=== PATIENT | male | born 1950 | race Caucasian/White ===

== ENCOUNTER 2019-02-15 06:25 | Inpatient (IN) ==
--- NOTE | 2019-01-25 15:37 | PAT Medication Instructions ---
Medication Instructions Date of Service January 25, 2019 Home Medications aspirin [Aspirin Low Dose] 81 mg PO QAM 01/18/19 [History Confirmed 01/18/19] lisinopril 30 mg PO DAILY 01/18/19 [History Confirmed 01/18/19] metoprolol succinate 100 mg PO BID 01/18/19 [History Confirmed 01/18/19] omega 8-sli-hst-fish oil 1 cap PO QAM 01/18/19 [History Confirmed 01/18/19] oxybutynin chloride [Ditropan XL] 5 mg PO QAM 01/18/19 [History Confirmed 01/18/19] pantoprazole 20 mg PO QAM 01/18/19 [History Confirmed 01/18/19] simvastatin 20 mg PO HS 01/18/19 [History Confirmed 01/18/19] terazosin 5 mg PO HS 01/18/19 [History Confirmed 01/18/19] ASK your prescriber and surgeon aspirin [Aspirin Low Dose] 81 mg PO QAM 01/18/19 [History Confirmed 01/18/19] STOP taking 2 weeks before surgery (or as soon as possible if surgery is within 2 weeks) omega 6-zis-eka-fish oil 1 cap PO QAM 01/18/19 [History Confirmed 01/18/19] DO NOT take the morning of surgery lisinopril 30 mg PO DAILY 01/18/19 [History Confirmed 01/18/19] oxybutynin chloride [Ditropan XL] 5 mg PO QAM 01/18/19 [History Confirmed 01/18/19] Take morning of surgery With a small sip of water, OTHERWISE NOTHING TO EAT OR DRINK AFTER MIDNIGHT: metoprolol succinate 100 mg PO BID 01/18/19 [History Confirmed 01/18/19] pantoprazole 20 mg PO QAM 01/18/19 [History Confirmed 01/18/19] Take evening before surgery metoprolol succinate 100 mg PO BID 01/18/19 [History Confirmed 01/18/19] simvastatin 20 mg PO HS 01/18/19 [History Confirmed 01/18/19] terazosin 5 mg PO HS 01/18/19 [History Confirmed 01/18/19] Other Notes If you have any questions please call us at [phone] or [phone] or [phone] or [phone]
--- NOTE | 2019-01-26 13:17 | Anesthesiology Consultation ---
Date of Service January 26, 2019 Assessment & Plan (1) Encounter for pre-operative examination: - Cardiology: 01/10/19: "low to intermediate risk for OR." - PCP: 01/16/19: "I see no historical or physical contraindications to proceeding with surgical intervention." Preop testing to be faxed to PCP. - Check [facility] AM DOS Chart Review Chart Review: Pending: Refer to Additional Notes / Consult section (pending preop testing (labs, EKG, CXR)) and Patient seen in Pre Admission Testing Teaching & Discussion Pre-Anesthesia Teaching/Discussion Notes: Instructed NPO after midnight before surgery,except medications with 15 cc of water. Medication instructions provided according to the PAT guidelines. History Surgery Operation Date: 02/15/19 08:15 Proposed Procedures p Robotic Laparoscopic Assisted Radical Retropubic Prostatectomy, Possible Open, Possible Pelvic Lymph Node Dissection - Bertin Peoples MD Height/Weight Height: 5 ft 7 in Weight: 89.1 kg Allergies Allergy/AdvReac Type Severity Reaction Status Date / Time morphine Allergy Unknown hives Verified 01/26/19 13:15 Penicillins Allergy Unknown skin Verified 01/26/19 11:30 streaking tetanus toxoid, adsorbed Allergy Unknown local skin Verified 01/26/19 13:15 irritation meperidine AdvReac Unknown hallucinations, Verified 01/26/19 13:15 agitation Medications Home Medications Medication Instructions Recorded Confirmed Last Taken aspirin [Aspirin Low Dose] 81 mg PO QAM 01/18/19 01/26/19 Unknown lisinopril 30 mg PO DAILY 01/18/19 01/26/19 Unknown metoprolol succinate 100 mg PO BID 01/18/19 01/26/19 Unknown omega 7-knu-gfm-fish oil 1 cap PO QAM 01/18/19 01/26/19 Unknown oxybutynin chloride [Ditropan XL] 5 mg PO QAM 01/18/19 01/26/19 Unknown pantoprazole 20 mg PO QAM 01/18/19 01/26/19 Unknown simvastatin 20 mg PO HS 01/18/19 01/26/19 Unknown terazosin 5 mg PO HS 01/18/19 01/26/19 Unknown Past Medical History Medical History BPH (benign prostatic hyperplasia) CAD (coronary artery disease) stents x 2 (2000) Diabetes mellitus, type 2 diet controlled GERD (gastroesophageal reflux disease) controlled History of abdominal aortic aneurysm (AAA) s/p repair + stent (2008) History of kidney cancer left kidney (2014) s/p tumor removal (s/p partial left nephrectomy) History of skin cancer face Hx of myocardial infarction 2000 - stents x 2 Hyperlipidemia Hypertension Exercise / Class Metabolic Activity II 4-5 Yardwork/Stairs/Walk up hill (one flight of stairs (no chest pain/no SOB)) Past Family History Family History Brother Family history of diabetes mellitus Past Surgical History Surgical History History of AAA (abdominal aortic aneurysm) repair + stent (2008) History of appendectomy History of kidney surgery Left partial robotic nephrectomy, hand assisted laparoscopy: 09/24/14: Grade I view, MAC#4, ETT 8 at [facility] Hx of abdominal surgery d/t peritonitis Hx of colonoscopy Hx of hernia repair Status post insertion of iliac artery stent (from trauma from endovascular procedure per records) Past Anesthesia History No Hx of Anesthesia Complications and No Family Hx of Anesthesia Complications History of PONV No Hx of PONV and No Hx of Motion Sickness Social History Smoking Status: Former smoker Do You Dip or Chew Tobacco: No Smoking End Date: Quit 2007 Hx Alcohol Use: No Hx Substance Use: No Review of Systems Hx of bronchitis (symptoms almost completely resolved as of PAT visit). Reflux controlled. Patient denies chest pain, shortness of breath, dyspnea on exertion, wheezing, palpitations. Physical Exam Vital Signs VITALS BP 143/79 P 53 TEMP 98.2 SP02 95%RA RESP 18 PHYSICAL Full neck and c-spine range of motion. Full TMJ range of motion. TMD 3 finger breaths Mallampati Score 3 Dentition: intact Lungs: clear throughout to auscultation Cardiac: regular rate and rhythm, no murmurs noted Spine: normal Carotid arteries: negative bruit Extremities: no edema Testing Laboratory Results 01/16/19 HGBA1C 5.7%
--- NOTE | 2019-01-26 14:41 | XRay Report ---
XR chest Pre-admission PA/Lat CLINICAL HISTORY: Preoperative evaluation. COMPARISON STUDY: Chest CT September 18, 2014. Chest radiograph September 13, 2014. FINDINGS: Lung volumes are normal. Lungs are clear. There is no pneumothorax or pleural effusion. Car diac size is normal. Mediastinal contours are normal. There is no evidence for pulmonary edema. Later al view partially visualizes an aortoiliac stent graft. IMPRESSION: No acute cardiopulmonary findings. Electronically signed by: Peterson Hart M.D. 01/26/2019 2:39 PM
[2019-01-26 16:02] LABS: Basophils # (auto) 0.03 K/uL (0-0.2); Basophils % (auto) 0.4 %; Eosinophils # (auto) 0.56 K/uL (0-0.5); Hematocrit (blood only) 41.9 % (42-52); Hemoglobin 14.2 g/dL (14.0-18.0); Immature Granulocytes # (auto) 0.01 K/uL (0.00-0.02); Immature Granulocytes % (auto) 0.1 %; Lymphocytes # (auto) 3.48 K/uL (1.2-3.4); Lymphocytes % (auto) 43.6 %; Mean Corpuscular Hgb Conc 33.9 g/dL (32-36); Mean Corpuscular Volume 88.4 fL (80-100); Mean Platelet Volume 10.9 fL (7.4-10.4); Monocytes # (auto) 0.68 K/uL (0.11-0.59); Monocytes % (auto) 8.5 %; Neutrophils # (auto) 3.22 K/uL (1.4-6.5); Neutrophils % (auto) 40.4 %; Platelet Count 126 K/uL (130-400); RDW Coefficient of Variation 12.4 % (11.5-14.5); Red Blood Count 4.74 M/uL (4.7-6.1); White Blood Count 7.98 K/uL (4.8-10.8)
[2019-01-26 16:16] LABS: BUN Creatinine Ratio 17.3 (10-20); Calcium 8.8 mg/dl (8.5-10.1); Creatinine Clr Calc Pharmacy 54.6 ml/min; Est GFR (African American) 61.1; Est GFR (Non-African American) 52.7
[~2019-02-15 06:25] MED LIST: CEFAZOLIN 2000MG 2,000 MG/15 ML SYR IV SCH; HEPARIN SOD 5,000 UNIT/0.5 ML VIAL SQ SCH; LR 15ML/HR IV SCH
[2019-02-15] MEDS ORDERED: MIDAZOLAM HCL 1 MG/ML 2ML VIAL ONE (07:44)
[2019-02-15] MEDS ORDERED: LIDOCAINE HCL 2% 2 ML VIAL/AMP(20MG/ML) INFIL ONE (07:44)
[2019-02-15] MEDS ORDERED: ROCURONIUM BROMIDE 10 MG/ML 5 ML VIAL ONE ×4 (07:44→11:50)
[2019-02-15] MEDS ORDERED: PROPOFOL IV EMULSION 10 MG/ML 20 ML VIAL IV ONE (07:44)
[2019-02-15] MEDS ORDERED: fentaNYL citrate 100 MCG/2 ML VIAL ONE ×3 (07:45→12:52)
--- NOTE | 2019-02-15 07:52 | History & Physical Bridge Note ---
Date of Service February 15, 2019 History & Physical Bridge Note I have examined the patient, reviewed the History & Physical and in the interval since the performance of the History & Physical I have noted the following changes of clinical significance: no changes noted
[2019-02-15] MEDS ORDERED: SODIUM CHLORIDE 0.9% INJ 10 ML VIAL ONE (07:54)
[2019-02-15] MEDS ORDERED: BUPIVACAINE 0.5 % 5 MG/1 ML MPF 30ML VIAL ONE (08:13)
[2019-02-15] MEDS: CEFAZOLIN: ALLERGY NOTED TO ORDERED MEDICATION SCH ×4 (08:27→14:09)
[2019-02-15] MEDS ORDERED: DEXAMETHASONE SOD INJ 4 MG/ML VIAL ONE (08:55)
[2019-02-15] MEDS ORDERED: GLYCOPYRROLATE 0.2 MG/ML VIAL ONE ×4 (08:55→11:53)
[2019-02-15] MEDS ORDERED: ATROPINE SO4 1 MG/ML 1ML VIAL ONE (09:01)
[2019-02-15] MEDS ORDERED: BELLADONNA/OPIUM SUPP 60 MG SUPP PR ONE ×2 (09:02→11:25)
[2019-02-15] MEDS ORDERED: CEFAZOLIN 250 MG/ML 1 GM VIAL ONE (09:24)
[2019-02-15] MEDS ORDERED: SURGICEL ABSORB HEMOSTAT 2IN X 14IN TOP ONE (10:21)
[2019-02-15] MEDS ORDERED: ePHEDrine sulfate 50 MG/ML SYR ONE (10:59)
[2019-02-15] MEDS ORDERED: ePHEDrine sulfate 50 MG/ML AMP ONE (10:59)
[2019-02-15] MEDS ORDERED: FLOSEAL HEMOSTATIC MATRIX 10ML TOP ONE (11:08)
[2019-02-15] MEDS ORDERED: ONDANSETRON INJ 2 MG/ML 2 ML VIAL ONE (11:26)
[2019-02-15] MEDS ORDERED: NEOSTIGMINE METHYLSULFATE 5 MG/5 ML SYR ONE (11:44)
[2019-02-15] MEDS ORDERED: HYDROmorphone INJ 1 MG/ML SYRINGE IV PRN ×2 (12:39→14:06)
[2019-02-15] MEDS ORDERED: ePHEDrine sulfate 50 MG/ML AMP IV PRN (12:39)
[2019-02-15] MEDS ORDERED: ATROPINE SULFATE 0.1 MG/ML 10ML SYR IV PRN (12:39)
[2019-02-15] MEDS ORDERED: ONDANSETRON INJ 2 MG/ML 2 ML VIAL IV PRN (12:39)
[2019-02-15] MEDS ORDERED: fentaNYL citrate 100 MCG/2 ML VIAL IV PRN (12:39)
[2019-02-15] MEDS ORDERED: HYDROmorphone INJ 1 MG/ML SYRINGE ONE (12:53)
[2019-02-15 13:12] LABS: Hematocrit (blood only) 38.5 % (42-52); Hemoglobin 13.2 g/dL (14.0-18.0); Mean Corpuscular Hemoglobin 30.1 pg (25-34); Mean Corpuscular Volume 87.7 fL (80-100); RDW Coefficient of Variation 12.6 % (11.5-14.5); RDW Standard Deviation 40.6 fL (36.4-46.3); Red Blood Count 4.39 M/uL (4.7-6.1); White Blood Count 9.56 K/uL (4.8-10.8)
[2019-02-15 13:29] LABS: Calcium 8.8 mg/dl (8.5-10.1); Creatinine Clr Calc Pharmacy 45.4 ml/min; Est GFR (African American) 48.7; Potassium 3.9 mmol/L (3.5-5.1)
[2019-02-15 13:37] LABS: Mean Corpuscular Hgb Conc 34.3 g/dL (32-36); Mean Platelet Volume 11.2 fL (7.4-10.4); Platelet Count 82 K/uL (130-400)
[2019-02-15 13:43] LABS: Basophils # (auto) 0.01 K/uL (0-0.2); Basophils % (auto) 0.1 %; Eosinophils # (auto) 0.05 K/uL (0-0.5); Eosinophils % (auto) 0.5 %; Immature Granulocytes # (auto) 0.03 K/uL (0.00-0.02); Immature Granulocytes % (auto) 0.3 %; Lymphocytes % (auto) 12.6 %; Monocytes # (auto) 0.16 K/uL (0.11-0.59); Monocytes % (auto) 1.7 %; Neutrophils # (auto) 8.11 K/uL (1.4-6.5); Neutrophils % (auto) 84.8 %; Platelet Estimate Decreased (Normal); Toxic Vacuolation 1+
[2019-02-15] MEDS ORDERED: OXYCODONE HCL IR 5 MG TAB (IMMEDIATE RELEASE) PO PRN (14:06)
[2019-02-15] MEDS ORDERED: HYDROmorphone INJ 0.5 MG/0.5 ML SYR IV PRN (14:06)
[2019-02-15] MEDS ORDERED: KETOROLAC TROMETHAMINE 15 MG/ML VIAL IV PRN (14:06)
[2019-02-15] MEDS: LACTATED RINGER'S 1,000 ML IV SCH (14:38)
--- NOTE | 2019-02-15 14:53 | Anesthesiology Progress Note ---
Date of Service February 15, 2019 Anesthesia Post Procedure Vital Signs Vital Signs: Temp Pulse Pulse Resp BP Pulse Ox 02/15/19 14:30 36.7 C 67 18 129/67 91 02/15/19 13:55 36.6 C 65 16 129/76 93 02/15/19 13:45 65 13 118/70 93 02/15/19 13:35 36.4 C L 65 13 104/69 93 02/15/19 13:25 63 14 124/72 92 02/15/19 13:15 64 15 135/69 94 02/15/19 13:05 36.8 C 67 19 112/67 95 02/15/19 12:55 36.8 C 61 20 128/77 92 02/15/19 12:45 36.8 C 66 18 114/74 91 02/15/19 12:35 36.8 C 75 22 148/62 H 89 L 02/15/19 12:28 36.8 C 74 14 153/70 H 98 02/15/19 06:56 36.4 C L 46 L 18 167/83 H 97 Pain Intensity Abdomen: Pain Intensity: 4 Transfer of Care Handoff Completed per policy Notes Mental Status: alert / awake / arousable and participated in evaluation Patient Amnestic to Procedure: Yes Nausea / Vomiting: adequately controlled Pain: adequately controlled Airway Patency, RR, SpO2: stable & adequate BP & HR: stable & adequate Hydration State: stable & adequate Anesthetic Complications: no major complications apparent and Pt Satisfied with anesthetic care
[2019-02-15] MEDS: ACETAMINOPHEN 1,000 MG/100 ML VIAL IV SCH ×2 (15:35→23:26)
[2019-02-15] MEDS: CEFAZOLIN 2000MG 2,000 MG/15 ML SYR IV SCH ×2 (15:37→23:35)
--- NOTE | 2019-02-15 18:03 | Operative Report ---
PG Post Operative Report Pre & Post Diagnosis Operation Date: 02/15/19 08:15 Pre-Op Diagnosis: Prostate Cancer Post-Op Diagnosis: Prostate Cancer I identified the patient and participated in the time-out.: Yes Procedure Operation Date: 02/15/19 08:15 Actual Procedures p Robotic Laparoscopic Assisted Radical Retropubic Prostatectomy, Lysis of Adhesions, Closure of Port Site and Umbilical Hernia - Bertin Peoples MD Surgeon Camilo Peoples MD Compliance Project Manager Deidre Ribeiro Estimated Blood Loss 150 Findings Consistent with Post-Op Diagnosis Specimens 1. periprostatic fat 2. bladder neck margin 3. prostate and seminal vesicles Description of Procedure The patient was identified in the preoperative holding area, appropriate informed consents were reviewed and completed, and he was transported to the operating suite. Subcutaneous heparin was administered in the pre-operative holding area. Upon arrival in the operating suite, he received appropriate antibiotics and general anesthesia. He was positioned in dorsal lithotomy, a B&O suppository was inserted after digital rectal exam, and he was prepped and draped in standard fashion. A Acosta catheter was inserted in the sterile field. A Veress needle was passedinto the right upper quadrant with uniform insufflation of the abdomen to 15mmHg. This location was selected secondary to a prior left partial nephrectomy and open appendectomy and fear of adhesions in these locations. A 5mm upper quadrant port was then inserted with a 5 mm 0 degree lens. Inspection revealed no adhesions immediately around the point of entry. Further inspection revealed no evidence of Varess trauma. As expected, he had significant adhesive disease in the right lower quadrant. He had visible sutures from his prior appendectomy and fascial closure, there was small bowel adherent to the sutures. Additionally, there was a small port site hernia on the left lateral aspect of the abdominal wall consistent with preoperative findings on imaging. A small umbilical hernia was also noted. These appear to contain fat only and no bowel. The anterior abdominal wall was free enough to allow a supraumbilical port to be placed. A standard 12 mm Visiport was positioned under direct vision. There were no incidents with positioning. Utilizing this port my previously placed 5 mm port, I was able to perform lysis of adhesions freeing the fat from the port site hernia on the left abdominal wall. This allowed further placement of my standard robotic ports in their standard positions. On the right side, I was also clear to position my ports in a standard configuration. And these were subsequently placed. I used a combination of these ports to allow sharp mobilization of the small bowel off of the anterior abdominal wall sutures in the right lower quadrant. Care was taken to avoid injury to the bowel and I believe we succeeded in complicating this. Patient was ultimately placed in steep Trendelenburg position and the robot docked. To begin the robotic portion of the case, further lysis of adhesions was required to free the sigmoid colon from the left lateral pelvic wall. Additionally, the pouch of Rodney was somewhat closed off secondary to adhesions and I was able to free the anterior surface of the rectum from the posterior aspect of the bladder and prostate creating the pouch of Rodney. In total 45 minutes of lysis of adhesions was performed. The medial umbilical ligaments were then controlled with bipolar electrocautery just inferior to the umbilicus. Following cauterization, they were divided utilizing monopolar cautery. A peritoneal incision was carried from this location to the medial aspect of the internal inguinal rings bilaterally with care to avoid opening through the ring. This incision was concluded when the vas deferens was reached. Dissection of the bladder and prostate off of the posterior aspect of the pubic arch was completed allowing full visualization of the prostate. The fat overlying the prostate was removed en bloc and passed off the table as a specimen labeled "periprostatic fat". The endopelvic fascia was cleared during this portion of the procedure, and subsequently opened - first on the right and then the left. The incision through the endopelvic fascia began near the prostate-bladder junction and was carried to the apex with extreme care to preserve all lateral levator musculature as well as the periurethral musculature and sphincter complex. The puboprostatic ligaments were thinned slightly bilaterally before placing a 0-Vicryl figure of 8 stitch around the DVC. Of note, he has bilateral direct inguinal hernias, and containing fat only, both of these were reduced. I then identified the bladder neck aided by gentle traction on the Acosta catheter and lateral to medial pressure at the presumed level of the bladder neck with the robotic instruments. An anterior cystotomy was made, the Acosta balloon deflated and the catheter guided through the incision to allow anterior retraction. I attempted to preserve maximal bladder neck musculature as I circumferentially dissected around the bladder neck. I did excise a small portion of the bladder neck for margin as I feared it may have been slightly too close to the prostate. As I corrected posteriorly, I noted that the posterior wall of the bladder was adherent very distally, I attempted to use care to carefully dissect this off the base of the prostate, but I did create a small buttonhole approximately 1 cm from the bladder neck. I inspected this through the bladder cystotomy as well as from the posterior aspect. It did not involve the ureteral orifices and I was able to close it primarily utilizing a 3-0 Vicryl suture. Closure occurred in 2 layers. Following inspection, the UOs were still patent and producing urine. I was then able to return to normal continuation the dissection and correct to an appropriate plan and ultimately dissect down until identified the bilateral vasa. I elevated the right vas first. I dissected circumferentially around it for a length of approximately 4 cm before transecting it with Bovie electrocautery. I utilized this vas to help elevate the lateral and posterior seminal vesicle which was circumferentially dissected. I then performed the same procedure on the left. Holding both seminal vesicles anteriorly, I was able to dissect posterior to the prostate and create a posterior plane. I dissected distally as far as possible and laterally to the limits of the neurovascular bundles. An incision in the lateral prostatic fascia was then made bilaterally to facilitate control of the vascular pedicles. The pedicles were then controlled with the vessel sealer device. A modest nerve sparing was performed. The apical attachments of the prostate were remaining at that stage. The DVC was divided with bipolar electrocautery. Clarita-prostatic tissue incised with sharp dissection and monopolar cautery. Maximal urethral length was preserved before dividing the urethra sharply. The prostate was entirely freed at that point, and collected in an EndoCatch bag before being moved out of the field of vision. Hemostasis was confirmed and anastomosis of the bladder and urethra was completed utilizing a double armed V- Lock stitch. I additionally used a V-lock stitch to reapproximate the transversalis fascia across the previously noted direct inguinal hernias. A new Acosta catheter was inserted and the anastomosis tested with irrigation. There was no evidence of leak. FloSeal coagulant was placed around the anastomosis. A ADDY drain was placed through the right lateral robotic port. The robot was undocked, and the string attached to the specimen bag was withdrawn through the left lateral robotic port. I then proceeded to open the anterior abdominal wall between the 2 left robotic ports, connecting the 2 incisions. This encompassed the previously noted port site hernia. I was able to free up fascia superiorly and inferiorly and close this primarily utilizing a 0 PDS in running fashion. This was a tension-free closure which appeared to entirely resolve the previously noted hernia. I subsequently closed subcutaneous tissues with a 2-0 Vicryl followed by injection of Marcaine and closure of the skin with 4-0 Monocryl. I then proceeded to open the supraumbilical incision through the umbilicus itself. There was previously a umbilical hernia, but I was also able to close this primarily, this time using a 0 Vicryl on a UR 6 needle. The fascia of the right lateral sales assistants and salespersons port was closed with a 0 Vicryl as well. All incisions were infiltrated with half percent Marcaine before closure of the skin with 4-0 Monocryl and Dermabond. The drain was sutured in place utilizing a 3-0 silk stitch. Deidre Ribeiro assisted throughout the case from opening to closure. I attest to the content of the Intraoperative Record and any orders documented therein. Any exceptions are noted below.
[2019-02-15] MEDS: SIMVASTATIN 20 MG TAB PO SCH (20:19)
[2019-02-15] MEDS: METOPROLOL SUCC 50MG EXT REL TAB PO SCH (20:19)
[2019-02-15] MEDS ORDERED: HEPARIN SOD 5,000 UNIT/0.5 ML VIAL SQ SCH (21:00)
[2019-02-16] MEDS: LACTATED RINGER'S 1,000 ML IV SCH ×2 (04:00→17:53)
[2019-02-16] MEDS: ACETAMINOPHEN 1,000 MG/100 ML VIAL IV SCH ×3 (07:16→22:12)
--- NOTE | 2019-02-16 07:47 | Urology Progress Note ---
Date of Service February 16, 2019 Assessment & Plan (1) Malignant neoplasm of prostate: POD#1 s/p RALP and incisional hernia/umbilical hernia closure doing very well ambulate diet ADDY out before d/c home if doing well, possible d/c home later today vs tomorrow Subjective doing very well ambulated this AM pain controlled no nausea Review of Systems Review of Systems: All systems reviewed & are unremarkable except as noted in HPI & below Physical Exam Physical Exam: incisions appropriate ADDY serosang urine clear Results & Data Vital Signs (Past 12 Hours) Vital Signs Temp Pulse Resp BP Pulse Ox 02/16/19 04:37 36.6 C 74 18 152/75 H 96 02/15/19 23:05 36.6 C 80 17 137/66 92 PG Care Time/CCT Total # of Minutes Spent Total Time Spent with Patient: Total time spent is greater than 50% in coordination of care (as documented) at patient's floor/unit and/or counseling patient:
[2019-02-16 08:19] LABS: Hematocrit (blood only) 37.3 % (42-52); Hemoglobin 12.3 g/dL (14.0-18.0); Mean Corpuscular Hemoglobin 29.7 pg (25-34); Mean Corpuscular Volume 90.1 fL (80-100); RDW Coefficient of Variation 12.9 % (11.5-14.5); RDW Standard Deviation 42.3 fL (36.4-46.3); Red Blood Count 4.14 M/uL (4.7-6.1); White Blood Count 10.73 K/uL (4.8-10.8)
[2019-02-16 08:25] LABS: Basophils # (auto) 0.01 K/uL (0-0.2); Basophils % (auto) 0.1 %; Eosinophils # (auto) 0.07 K/uL (0-0.5); Eosinophils % (auto) 0.7 %; Immature Granulocytes # (auto) 0.03 K/uL (0.00-0.02); Immature Granulocytes % (auto) 0.3 %; Lymphocytes # (auto) 1.86 K/uL (1.2-3.4); Lymphocytes % (auto) 17.3 %; Mean Platelet Volume 10.5 fL (7.4-10.4); Monocytes # (auto) 1.04 K/uL (0.11-0.59); Monocytes % (auto) 9.7 %; Neutrophils # (auto) 7.72 K/uL (1.4-6.5); Neutrophils % (auto) 71.9 %; Platelet Count 89 K/uL (130-400)
--- NOTE | 2019-02-16 08:30 | Anesthesiology Progress Note ---
Date of Service February 16, 2019 Anesthesia Post Procedure Vital Signs Vital Signs: Temp Pulse Pulse Resp BP Pulse Ox 02/16/19 08:05 36.8 C 65 18 150/82 H 91 02/16/19 04:37 36.6 C 74 18 152/75 H 96 02/15/19 23:05 36.6 C 80 17 137/66 92 02/15/19 16:56 36.3 C L 67 16 125/67 95 02/15/19 15:58 36.3 C L 65 16 150/78 H 94 02/15/19 14:36 36.4 C L 62 18 145/71 H 93 02/15/19 14:30 36.7 C 67 18 129/67 91 02/15/19 13:55 36.6 C 65 16 129/76 93 02/15/19 13:45 65 13 118/70 93 02/15/19 13:35 36.4 C L 65 13 104/69 93 02/15/19 13:25 63 14 124/72 92 02/15/19 13:15 64 15 135/69 94 02/15/19 13:05 36.8 C 67 19 112/67 95 02/15/19 12:55 36.8 C 61 20 128/77 92 02/15/19 12:45 36.8 C 66 18 114/74 91 02/15/19 12:35 36.8 C 75 22 148/62 H 89 L 02/15/19 12:28 36.8 C 74 14 153/70 H 98 Pain Intensity Abdomen: Pain Intensity: 4 Notes Mental Status: alert / awake / arousable and participated in evaluation Patient Amnestic to Procedure: Yes Nausea / Vomiting: adequately controlled Pain: adequately controlled Airway Patency, RR, SpO2: stable & adequate BP & HR: stable & adequate Hydration State: stable & adequate Anesthetic Complications: no major complications apparent and Pt Satisfied with anesthetic care
[2019-02-16 08:53] LABS: BUN Creatinine Ratio 18.1 (10-20); Calcium 8.6 mg/dl (8.5-10.1); Creatinine Clr Calc Pharmacy 48.7 ml/min; Est GFR (Non-African American) 45.7; Potassium 3.6 mmol/L (3.5-5.1)
[2019-02-16] MEDS: METOPROLOL SUCC 50MG EXT REL TAB PO SCH ×2 (09:04→20:58)
[2019-02-16] MEDS: OMEGA-3 (PURIFIED FISH OIL) 1 GM CAP PO SCH (09:04)
[2019-02-16] MEDS: PANTOprazole 40 MG TAB PO SCH (09:04)
[2019-02-16] MEDS: OXYBUTYNIN CHLORIDE XL 5 MG TABCR PO SCH (09:05)
--- NOTE | 2019-02-16 10:07 | Urology Progress Note ---
Date of Service February 16, 2019 Assessment & Plan (1) Malignant neoplasm of prostate: POD#1 s/p RALP and incisional hernia/umbilical hernia closure Re-evaluated this AM Continues to progress well, he is worried about pain control if discharged today Continue ambulation as tolerated Diet increased to regular, soft Pt wishes to stay today and discharge tomorrow. Expected clinical course reviewed, brief jerry teaching reviewed. Subjective Pt continues to do very well Sitting in bed at time of evaluation pain controlled with IV tylenol no nausea Developed mild sore throat, cough. jerry draining clear with mild clots incisions c/d/i ADDY draining minimal serosang Results & Data Vital Signs (Past 12 Hours) Vital Signs Temp Pulse Pulse Resp BP Pulse Ox 02/16/19 08:05 36.8 C 65 18 150/82 H 91 02/16/19 04:37 36.6 C 74 18 152/75 H 96 02/15/19 23:05 36.6 C 80 17 137/66 92 PG Care Time/CCT Total # of Minutes Spent Total Time Spent with Patient: Total time spent is greater than 50% in coordination of care (as documented) at patient's floor/unit and/or counseling patient:
[2019-02-16] MEDS: OXYCODONE HCL IR 5 MG TAB (IMMEDIATE RELEASE) PO PRN ×2 (14:32→18:52)
[2019-02-16] MEDS: SIMVASTATIN 20 MG TAB PO SCH (20:58)
[2019-02-17] MEDS: ONDANSETRON INJ 2 MG/ML 2 ML VIAL IV PRN ×2 (02:06→07:58)
[2019-02-17] MEDS: LACTATED RINGER'S 1,000 ML IV SCH (05:54)
[2019-02-17] MEDS: METOPROLOL SUCC 50MG EXT REL TAB PO SCH ×2 (07:04→20:19)
[2019-02-17] MEDS: ACETAMINOPHEN 1,000 MG/100 ML VIAL IV SCH ×3 (07:04→23:18)
[2019-02-17 07:20] LABS: Hematocrit (blood only) 38.5 % (42-52); Hemoglobin 12.9 g/dL (14.0-18.0); Mean Corpuscular Hemoglobin 30.1 pg (25-34); Mean Corpuscular Hgb Conc 33.5 g/dL (32-36); Mean Corpuscular Volume 89.7 fL (80-100); RDW Coefficient of Variation 12.9 % (11.5-14.5); Red Blood Count 4.29 M/uL (4.7-6.1); White Blood Count 10.44 K/uL (4.8-10.8)
[2019-02-17 07:26] LABS: Mean Platelet Volume 10.8 fL (7.4-10.4); Platelet Count 90 K/uL (130-400)
[2019-02-17 07:39] LABS: ALC (manual) 2.31 K/uL (1.2-3.4); ANC (manual) 7.61 K/uL (1.4-6.5); Eosinophils # (manual) 0.08 K/uL (0-0.5); Eosinophils % (manual) 0.8 %; Lymphocytes # (manual) 0.89 K/uL (1.2-3.4); Lymphocytes % (manual) 8.5 %; Monocytes # (manual) 0.44 K/uL (0.11-0.59); Monocytes % (manual) 4.2 %; Neutrophils # (manual) 7.61 K/uL (1.4-6.5); Neutrophils % (manual) 72.9 %; Reactive Lymphocytes # (manual) 1.42 K/uL; Reactive Lymphocytes % (manual) 13.6 %
[2019-02-17 07:46] LABS: BUN Creatinine Ratio 17.3 (10-20); Calcium 8.7 mg/dl (8.5-10.1); Creatinine Clr Calc Pharmacy 59.6 ml/min; Est GFR (African American) 67.7; Est GFR (Non-African American) 58.4; Potassium 3.9 mmol/L (3.5-5.1)
[2019-02-17] MEDS ORDERED: lisinopriL 10 MG TAB PO SCH (09:00)
[2019-02-17] MEDS: PANTOprazole 40 MG TAB PO SCH (09:05)
[2019-02-17] MEDS: OMEGA-3 (PURIFIED FISH OIL) 1 GM CAP PO SCH (09:05)
[2019-02-17] MEDS: OXYBUTYNIN CHLORIDE XL 5 MG TABCR PO SCH (09:05)
[2019-02-17] MEDS ORDERED: PROMETHAZINE HCL 25 MG in SODIUM CHLORIDE 0.9% 50 ML IV PRN (10:04)
--- NOTE | 2019-02-17 11:55 | Urology Progress Note ---
Date of Service February 17, 2019 Assessment & Plan (1) Malignant neoplasm of prostate: POD#2 s/p RALP and incisional hernia/umbilical hernia closure Significant hypertension this morning had improved with medications this morning but continues to be elevated. Patient also developed severe nausea. Has been better tolerated now with an additional agent. Patient has not had return of bowel function. Has some pain but that is being controlled with medication. Hospitalist has been consulted for management of his significant hypertension. May need to have a different agent for an additional PRN medication while in hospital. Will need to determine if this will need to be a more long-term medication. Otherwise patient has been slowly improving. At this point he is extremely tired after receiving the antiemetic medication. Is resting comfortably otherwise. Subjective Patient is developed hypertension over the last day. Has been very high this morning until he took his metoprolol. Since then it has dropped down somewhat but continues to have issues with nausea and pain. Patient pain is controlled by medication. Had to have another medication for nausea. Patient was having some dry heaving but did not have any true vomiting. Patient at this point is resting comfortably. The medication for the nausea has caused him to be extremely sleepy. But otherwise reports that he is feeling somewhat better. The hospitalist been consulted to assess his significant hypertension. Patient does have history of hypertension on 2 medications at home. Will discuss further options for management. If not improving with inpatient management. Patient has not had return of bowel function yet. Has been tolerating small amount of food. Nausea has limited this somewhat. Patient is tired and having some fatigue issues. Review of Systems Review of Systems: All systems reviewed & are unremarkable except as noted in HPI & below Nausea. Physical Exam Physical Exam: General: Alert in no acute distress. HEENT: Normocephalic Atraumatic. Inspection normal. Cranial Nerves 2-12 Grossly intact. Normal inspection of face. Normal inspection of neck. Psychologic: Normal affect. Respiratory: Nonlabored. No use of accessory muscles. No tachypnea or dyspnea. Cardiovascular: No tachycardia Skin: Shaft and Dry. No rashes or visible lesions. Extremities/Lymphatics: No edema Abdomen: Wounds clean dry and intact. No rebound or guarding. Obese : clear yellow urine. Results & Data Vital Signs (Past 12 Hours) Vital Signs Temp Pulse Pulse Resp BP BP Pulse Ox 02/17/19 08:58 199/95 H 12/07/19 08:04 216/105 H 02/17/19 07:38 36.8 C 64 20 95 02/17/19 06:57 64 228/112 H 220/108 H 02/17/19 06:13 212/98 H PG Care Time/CCT Total # of Minutes Spent Total Time Spent with Patient: Total time spent is greater than 50% in coordination of care (as documented) at patient's floor/unit and/or counseling patient:
[2019-02-17] MEDS ORDERED: HydrALAZINE HCL 20 MG/ML VIAL IV STA (13:29)
[2019-02-17] MEDS ORDERED: lisinopriL 10 MG TAB PO STA (13:30)
[2019-02-17] MEDS: SIMVASTATIN 20 MG TAB PO SCH (20:19)
[2019-02-18 05:26] LABS: Basophils # (auto) 0.02 K/uL (0-0.2); Basophils % (auto) 0.2 %; Eosinophils # (auto) 0.39 K/uL (0-0.5); Eosinophils % (auto) 3.7 %; Hematocrit (blood only) 39.3 % (42-52); Hemoglobin 13.5 g/dL (14.0-18.0); Immature Granulocytes # (auto) 0.03 K/uL (0.00-0.02); Immature Granulocytes % (auto) 0.3 %; Lymphocytes # (auto) 2.26 K/uL (1.2-3.4); Lymphocytes % (auto) 21.5 %; Mean Corpuscular Hemoglobin 30.6 pg (25-34); Mean Corpuscular Hgb Conc 34.4 g/dL (32-36); Mean Corpuscular Volume 89.1 fL (80-100); Mean Platelet Volume 10.8 fL (7.4-10.4); Monocytes # (auto) 1.03 K/uL (0.11-0.59); Monocytes % (auto) 9.8 %; Neutrophils # (auto) 6.76 K/uL (1.4-6.5); Neutrophils % (auto) 64.5 %; Platelet Count 103 K/uL (130-400); RDW Coefficient of Variation 12.8 % (11.5-14.5); RDW Standard Deviation 41.5 fL (36.4-46.3); Red Blood Count 4.41 M/uL (4.7-6.1); White Blood Count 10.49 K/uL (4.8-10.8)
[2019-02-18 05:56] LABS: BUN Creatinine Ratio 20.2 (10-20); Calcium 8.7 mg/dl (8.5-10.1); Creatinine Clr Calc Pharmacy 67.7 ml/min; Est GFR (Non-African American) 68.1; Potassium 3.7 mmol/L (3.5-5.1)
[2019-02-18] MEDS: ACETAMINOPHEN 1,000 MG/100 ML VIAL IV SCH (06:17)
[2019-02-18] MEDS: METOPROLOL SUCC 50MG EXT REL TAB PO SCH ×2 (07:43→21:16)
[2019-02-18] MEDS: OMEGA-3 (PURIFIED FISH OIL) 1 GM CAP PO SCH (09:18)
[2019-02-18] MEDS: lisinopriL 10 MG TAB PO SCH (09:18)
[2019-02-18] MEDS: OXYBUTYNIN CHLORIDE XL 5 MG TABCR PO SCH (09:18)
[2019-02-18] MEDS: PANTOprazole 40 MG TAB PO SCH (09:19)
--- NOTE | 2019-02-18 11:46 | Urology Progress Note ---
Date of Service February 18, 2019 Assessment & Plan (1) Malignant neoplasm of prostate: POD3 s/p RALP and incisional hernia/umbilical hernia closure Patient continues to have expected discomfort in abdomen and groin. Patient is tolerating catheter without major issue. Is draining clear yellow urine at this point. Has slowly increased his diet today. His nausea has improved drastically but he still requires occasional medication. Has only been taking liquids and with overall good results. Pain is controlled with medication. Overall has been increasing ambulation but only walked a short amount this morning. Patient hypertension has improved. He was placed back on his home medication and is slowly returning to a more normal value. Patient had severely elevated hypertension yesterday with blood pressure greater than 200 systolic. We will continue to follow. May need additional medication at home if pressures do not continue to improve. Otherwise continue to manage with postop care. Subjective Postop day 3. Patient has ambulated somewhat this morning. Is slowly increasing his diet. Nausea has improved with medication. Pain is been controlled. Hypertension is still present but improved. Now 170 systolic. Livier frankel is on lisinopril at home and was restarted by the hospitalist team. Will need to monitor blood pressure over time to see if this continues to improve if not may need additional agents. Has not had other major issue. Has no significant return of bowel function. Review of Systems Review of Systems: Nausea. Physical Exam Physical Exam: General: Alert in no acute distress. HEENT: Normocephalic Atraumatic. Inspection normal. Cranial Nerves 2-12 Grossly intact. Normal inspection of face. Normal inspection of neck. Psychologic: Normal affect. Respiratory: Nonlabored. No use of accessory muscles. No tachypnea or dyspnea. Cardiovascular: No tachycardia Skin: [place] and Dry. No rashes or visible lesions. Extremities/Lymphatics: No edema Abdomen: Soft Non-distended. No rebound or guarding. : Acosta in place draining clear yellow urine. ADDY in place with mild serosanguinous fluid Results & Data Vital Signs (Past 12 Hours) Vital Signs Temp Pulse Resp BP BP Pulse Ox 02/18/19 09:16 80 170/92 H 02/18/19 07:02 36.6 C 16 193/97 H 190/98 H 93 PG Care Time/CCT Total # of Minutes Spent Total Time Spent with Patient: Total time spent is greater than 50% in coordination of care (as documented) at patient's floor/unit and/or counseling patient:
--- NOTE | 2019-02-18 12:28 | Consultation ---
Date of Consultation February 18, 2019 Assessment & Plan (1) Hypertension: BP quite high yesterday and this morning likely due to Lisinopril held around surgery as well as stopping terazosin pain also likely driving up BP, increased adrenergic effect continue metoprolol, resume Lisinopril 30mg daily Hydralazine PRN for BP > 180/100 if pressures still elevated tomorrow AM could try Norvasc 5mg daily no further role for terazosin s/p prostatectomy (2) Diabetes mellitus, type 2: diet controlled Novolog SS if needed advance diet today (3) GERD (gastroesophageal reflux disease): no reflux symptoms currently continue Protonix (4) CAD (coronary artery disease): no chest pain aspirin on hold post op, resume when okay with urology History of Present Illness Requesting Physician: Dr. Mo Reason for Consultation: Hypertension Attending Physician: Camilo Peoples MD History of Present Illness 68 yo male s/p prostatectomy for prostate cancer. Medical history of hypertension, dyslipidemia. He was doing reasonably well post op but had some pain. Blood pressure was elevated at times with SBP in the 190's when he was having pain. Lisinopril was held on admission and post op. His metoprolol was resumed post op. The patient was not having any chest pain or dyspnea with the elevated pressures. He was eating okay, had some mild intermittent nausea. Labs reviewed, Cr, WBC, Hb all stable. Allergies Allergy/AdvReac Type Severity Reaction Status Date / Time morphine Allergy Unknown hives Verified 02/15/19 07:01 Penicillins Allergy Unknown skin Verified 02/15/19 07:01 streaking tetanus toxoid, adsorbed Allergy Unknown local skin Verified 02/15/19 07:01 irritation meperidine AdvReac Unknown hallucinations, Verified 02/15/19 07:01 agitation Home Medications Home Medications Medication Instructions Recorded Confirmed Type aspirin [Aspirin Low Dose] 81 mg PO QAM 01/18/19 02/15/19 History lisinopril 30 mg PO DAILY 01/18/19 02/15/19 History metoprolol succinate 100 mg PO BID 01/18/19 02/15/19 History omega 2-[id number]-fish oil 1 cap PO QAM 01/18/19 02/15/19 History oxybutynin chloride [Ditropan XL] 5 mg PO QAM 01/18/19 02/15/19 History pantoprazole 20 mg PO QAM 01/18/19 02/15/19 History simvastatin 20 mg PO HS 01/18/19 02/15/19 History terazosin 5 mg PO HS 01/18/19 02/15/19 History ciprofloxacin HCl 500 mg PO BID #6 tab 02/16/19 Rx docusate sodium [Colace] 100 mg PO BID #60 cap 02/16/19 Rx oxycodone-acetaminophen [Percocet] 1 tab PO TID PRN #14 tab 02/16/19 Rx Patient History Medical History BPH (benign prostatic hyperplasia) CAD (coronary artery disease) stents x 2 (2000) Diabetes mellitus, type 2 diet controlled GERD (gastroesophageal reflux disease) controlled History of abdominal aortic aneurysm (AAA) s/p repair + stent (2008) History of kidney cancer left kidney (2014) s/p tumor removal (s/p partial left nephrectomy) History of skin cancer face Hx of myocardial infarction 2000 - stents x 2 Hyperlipidemia Hypertension Surgical History History of AAA (abdominal aortic aneurysm) repair + stent (2008) History of appendectomy History of kidney surgery Left partial robotic nephrectomy, hand assisted laparoscopy: 09/24/14: Grade I view, MAC#4, ETT 8 at [facility] Hx of abdominal surgery d/t peritonitis Hx of colonoscopy Hx of hernia repair Status post insertion of iliac artery stent (from trauma from endovascular procedure per records) Family History Brother Family history of diabetes mellitus Social History Preferred Language: Syriac Communication Ability: Effective Beliefs That Will Affect Care: None Current Living Situation: Spouse Feels Safe at Home: Yes Safety Concerns: Feels Safe At This Time Smoking Status: Former smoker Do You Dip or Chew Tobacco: No ; Smoking End Date: Quit 2007 ; Second Hand Exposure: No ; Hx Alcohol Use: No Hx Substance Use: No Review of Systems Review of Systems: All systems reviewed & are unremarkable except as noted in HPI & below Constitutional: no fever, no chills and no sweats Respiratory: no cough and no dyspnea Cardiovascular: no chest pain, no palpitations, no syncope and no edema Gastrointestinal: no abdominal pain, no nausea, no vomiting, no constipation and no diarrhea/loose stools Genitourinary: + problem reported (suprapubic pain after prostatectomy, jerry in place) Physical Exam Constitutional: WD/WN, vitals as above Eyes: PERRL, conjunctivae normal, anicteric sclerae ENMT: external ear and nose normal, oropharynx normal Neck: trachea midline, no thyromegaly Respiratory: normal respiratory effort, lungs clear to auscultation Cardiovascular: RRR, no murmur, no edema Gastrointestinal (Abdomen): normal bowel sounds, soft, nontender, no hepatosplenomegaly Musculoskeletal: no cyanosis or clubbing, extremities motor strength 5/5 Skin: no rashes, warm and dry Neurologic: patellar DTR's 2+ bilat, sensation intact and PERRL, EOMI, accommodation nl, no face palsy, no dysarthria Psychiatric: A+Ox3, euthymic affect Lymphatic: no cervical or axillary lymphadenopathy Results & Data Vital Signs (Past 12 Hours) Vital Signs Temp Pulse Resp BP BP Pulse Ox 02/18/19 09:16 80 170/92 H 02/18/19 07:02 36.6 C 16 193/97 H 190/98 H 93 Laboratory Results Laboratory Results - last 24 hr 02/18/19 02/18/19 04:38 04:38 WBC 10.49 RBC 4.41 L Hgb 13.5 L Hct 39.3 L MCV 89.1 MCH 30.6 MCHC 34.4 RDW Std Deviation 41.5 RDW Coeff of Gennaro 12.8 Plt Count 103 L MPV 10.8 H Immature Gran % (Auto) 0.3 Neut % (Auto) 64.5 Lymph % (Auto) 21.5 [place] % (Auto) 9.8 Eos % (Auto) 3.7 Baso % (Auto) 0.2 Immature Gran # (Auto) 0.03 H Neut # (Auto) 6.76 H Lymph # (Auto) 2.26 [place] # (Auto) 1.03 H Eos # (Auto) 0.39 Baso # (Auto) 0.02 Sodium 138 Potassium 3.7 Chloride 104 Carbon Dioxide 29 Anion Gap 5.0 BUN 22 H Creatinine 1.10 Est Cr Clr Drug Dosing 67.7 Est GFR ( Amer) 79.0 Est GFR (Non-Af Amer) 68.1 BUN/Creatinine Ratio 20.2 H Glucose 103 H Calcium 8.7 Medications Administered Current Inpatient Medications Fish Oil ([place]irtz-3 (Purified Fish Oil)) [facility] [place] Stop: 03/18/19 08:59 Last Admin: 02/18/19 09:18 Dose: 1 gm Documented by: Hydralazine HCl (Hydralazine Hcl) 10 mg IV Q6 PRN PRN Reason: Blood Pressure - High Stop: 03/20/19 12:10 Hydromorphone HCl (Dilaudid) 1 mg IV Q4H PRN PRN Reason: severe pain Stop: 03/01/19 14:05 Hydromorphone HCl (Dilaudid) 0.5 mg IV Q4H PRN PRN Reason: moderate pain Stop: 03/01/19 14:05 Last Admin: 02/16/19 17:40 Dose: 0.5 mg Documented by: Acetaminophen (Ofirmev) 1,000 mg in 100 mls @ 400 mls/hr IV Q8H [facility] Stop: 02/18/19 14:05 Last Infusion: 02/18/19 06:40 Dose: Infused Documented by: Promethazine HCl 25 mg/ Sodium (Chloride) 51 mls @ 204 mls/hr IV Q8H PRN PRN Reason: Nausea And Vomiting Stop: 03/19/19 10:03 Last Infusion: 02/17/19 10:37 Dose: Infused Documented by: Lisinopril (Zestril) 30 mg PO [facility] Stop: 03/20/19 08:59 Last Admin: 02/18/19 09:18 Dose: 30 mg Documented by: Metoprolol Succinate (Toprol Xl) 100 mg PO BID [facility] Stop: 03/17/19 20:59 Last Admin: 02/18/19 07:43 Dose: 100 mg Documented by: Ondansetron HCl (Zofran) 4 mg IV Q6H PRN PRN Reason: Nausea And Vomiting Stop: 03/17/19 14:05 Last Admin: 02/17/19 07:58 Dose: 4 mg Documented by: Oxybutynin Chloride (Ditropan Xl) 5 mg PO [facility] Stop: 03/18/19 08:59 Last Admin: 02/18/19 09:18 Dose: 5 mg Documented by: Oxycodone HCl (Roxicodone Immediate Rel) 10 mg PO Q4H PRN PRN Reason: severe pain (scale 7-10) Stop: 03/01/19 14:05 Last Admin: 02/16/19 18:52 Dose: 10 mg Documented by: Oxycodone HCl (Roxicodone Immediate Rel) 5 mg PO Q4H PRN PRN Reason: Moderate Pain Stop: 03/01/19 14:05 Last Admin: 02/16/19 10:57 Dose: 5 mg Documented by: Pantoprazole Sodium (Protonix) 40 mg PO [facility] Stop: 03/18/19 08:59 Last Admin: 02/18/19 09:19 Dose: 40 mg Documented by: Simvastatin (Zocor) 20 mg PO [facility] Stop: 03/17/19 20:59 Last Admin: 02/17/19 20:19 Dose: 20 mg Documented by: PG Care Time/CCT Total # of Minutes Spent Total Time Spent with Patient: Total time spent is greater than 50% in coordination of care (as documented) at patient's floor/unit and/or counseling patient:
[2019-02-18] MEDS: HydrALAZINE HCL 20 MG/ML VIAL IV PRN ×2 (15:58→22:35)
[2019-02-18] MEDS: SIMVASTATIN 20 MG TAB PO SCH (21:16)
[2019-02-19 07:12] LABS: Basophils # (auto) 0.03 K/uL (0-0.2); Basophils % (auto) 0.3 %; Eosinophils # (auto) 0.53 K/uL (0-0.5); Hematocrit (blood only) 39.1 % (42-52); Hemoglobin 13.8 g/dL (14.0-18.0); Immature Granulocytes # (auto) 0.02 K/uL (0.00-0.02); Immature Granulocytes % (auto) 0.2 %; Lymphocytes # (auto) 2.05 K/uL (1.2-3.4); Lymphocytes % (auto) 23.1 %; Mean Corpuscular Hemoglobin 31.5 pg (25-34); Mean Corpuscular Hgb Conc 35.3 g/dL (32-36); Mean Corpuscular Volume 89.3 fL (80-100); Mean Platelet Volume 10.7 fL (7.4-10.4); Monocytes # (auto) 0.83 K/uL (0.11-0.59); Monocytes % (auto) 9.3 %; Neutrophils # (auto) 5.42 K/uL (1.4-6.5); Neutrophils % (auto) 61.1 %; Platelet Count 104 K/uL (130-400); RDW Coefficient of Variation 12.7 % (11.5-14.5); Red Blood Count 4.38 M/uL (4.7-6.1); White Blood Count 8.88 K/uL (4.8-10.8)
[2019-02-19 07:44] LABS: BUN Creatinine Ratio 24.6 (10-20); Calcium 8.4 mg/dl (8.5-10.1); Creatinine Clr Calc Pharmacy 65.3 ml/min; Est GFR (African American) 75.6; Est GFR (Non-African American) 65.3
[2019-02-19] MEDS: HydrALAZINE HCL 20 MG/ML VIAL IV PRN (07:53)
[2019-02-19] MEDS ORDERED: AMLODIPINE BESYLATE 5 MG TAB PO ONE (08:07)
[2019-02-19] MEDS: OXYBUTYNIN CHLORIDE XL 5 MG TABCR PO SCH (08:21)
[2019-02-19] MEDS: OMEGA-3 (PURIFIED FISH OIL) 1 GM CAP PO SCH (08:21)
[2019-02-19] MEDS: METOPROLOL SUCC 50MG EXT REL TAB PO SCH (08:21)
[2019-02-19] MEDS: PANTOprazole 40 MG TAB PO SCH (08:21)
[2019-02-19] MEDS: lisinopriL 10 MG TAB PO SCH (08:22)
--- NOTE | 2019-02-19 09:57 | Urology Progress Note ---
Date of Service February 19, 2019 Assessment & Plan (1) Malignant neoplasm of prostate: POD3 s/p RALP and incisional hernia/umbilical hernia closure Doing much better from pain control and nausea standpoint. Appreciate hospitalist recommendations for bp management. ADDY with minimal output, will plan to d/c just prior to discharge. Okay to discharge home from our standpoint once blood pressure is controlled to reasonable degree, will allow hospitalist to set parameters/recommendations for when safe to discharge. Expected clinical course reviewed, will keep post operative appointments as originally scheduled. Will continue to monitor closely. Subjective 68yo M POD #4 s/p RARLP and hernia repair. Pt is doing much better from clinical [place]. States "I don't have any pain". Nausea has resolved, able to enjoy regular diet for dinner last evening. He had a soft BM this AM, did not need to strain. Denies jerry irritation BP issues remain to be an issue, SBP 190 this AM. Received PRN hydralazine per primary team order. Appreciate hospitalist recommendations. Norvasc also added to BP cocktail. No other new issues or concerns. Ambulating in halls. Review of Systems Review of Systems: All systems reviewed & are unremarkable except as noted in HPI & below Physical Exam Physical Exam: A&O x3 RRR Abd soft, tender around incisions as anticipated. Incisions c/d/i ADDY drain with mild serosang drainage. Jerry draining clear yellow. Results & Data Vital Signs (Past 12 Hours) Vital Signs Temp Pulse Pulse Resp BP BP Pulse Ox 02/19/19 08:51 170/84 H 02/19/19 07:34 36.4 C L 66 20 190/98 H 92 02/18/19 23:46 167/83 H 02/18/19 22:52 36.7 C 62 16 165/83 H 157/92 H 92 02/18/19 22:30 179/99 H PG Care Time/CCT Total # of Minutes Spent Total Time Spent with Patient: Total time spent is greater than 50% in c oordination of care (as documented) at patient's floor/unit and/or counseling patient:
--- NOTE | 2019-02-19 11:03 | Hospitalist Progress Note ---
Date of Service February 19, 2019 Assessment & Plan (1) Hypertension: BP quite high, intermittent for the past 48 hours likely due to Lisinopril held around surgery as well as stopping terazosin pain also likely driving up BP, increased adrenergic effect continue metoprolol, resume Lisinopril 30mg daily Hydralazine PRN for BP > 180/100 BP still elevated today, will start on Norvasc 5mg daily safe to d/c home today recommend taking metoprolol, Lisinopril, Norvasc and can follow up with PCP in a week for BP check (2) Diabetes mellitus, type 2: diet controlled Novolog SS if needed no major changes on discharge (3) GERD (gastroesophageal reflux disease): no reflux symptoms currently continue Protonix (4) CAD (coronary artery disease): no chest pain aspirin on hold post op, resume when okay with urology Subjective patient feeling great, wants to go home today okay with urology for discharge BP elevated this AM, gave him a dose of Norvasc, responded appropriately discussed using Norvasc on discharge, will replace Hytrin, he agrees with this plan eating well, no chest pain, no dyspnea, no cough, no NVD, no fever/chills jerry in place per urology Review of Systems Review of Systems: All systems reviewed & are unremarkable except as noted in HPI & below Physical Exam Constitutional: WD/WN, vitals as above Eyes: PERRL, conjunctivae normal, anicteric sclerae ENMT: external ear and nose normal, oropharynx normal Neck: trachea midline, no thyromegaly Respiratory: normal respiratory effort, lungs clear to auscultation Cardiovascular: RRR, no murmur, no edema Gastrointestinal (Abdomen): normal bowel sounds, soft, nontender, no hepatosplenomegaly Musculoskeletal: no cyanosis or clubbing, extremities motor strength 5/5 Skin: no rashes, warm and dry Neurologic: patellar DTR's 2+ bilat, sensation intact and PERRL, EOMI, accommodation nl, no face palsy, no dysarthria Psychiatric: A+Ox3, euthymic affect Lymphatic: no cervical or axillary lymphadenopathy Results & Data Vital Signs (Past 12 Hours) Vital Signs Temp Pulse Resp BP Pulse Ox 02/19/19 08:51 170/84 H 02/19/19 07:34 36.4 C L 66 20 190/98 H 92 02/18/19 23:46 167/83 H Laboratory Results Laboratory Results - last 24 hr 02/19/19 02/19/19 06:48 06:48 WBC 8.88 RBC 4.38 L Hgb 13.8 L Hct 39.1 L MCV 89.3 MCH 31.5 MCHC 35.3 RDW Std Deviation 41.0 RDW Coeff of Gennaro 12.7 Plt Count 104 L MPV 10.7 H Immature Gran % (Auto) 0.2 Neut % (Auto) 61.1 Lymph % (Auto) 23.1 [place] % (Auto) 9.3 Eos % (Auto) 6.0 Baso % (Auto) 0.3 Immature Gran # (Auto) 0.02 Neut # (Auto) 5.42 Lymph # (Auto) 2.05 [place] # (Auto) 0.83 H Eos # (Auto) 0.53 H Baso # (Auto) 0.03 Sodium 140 Potassium 4.0 Chloride 105 Carbon Dioxide 28 Anion Gap 7.0 BUN 28 H Creatinine 1.14 Est Cr Clr Drug Dosing 65.3 Est GFR ( Amer) 75.6 Est GFR (Non-Af Amer) 65.3 BUN/Creatinine Ratio 24.6 H Glucose 109 H Calcium 8.4 L PG Care Time/CCT Total # of Minutes Spent Total Time Spent with Patient: Total time spent is greater than 50% in coordination of care (as documented) at patient's floor/unit and/or counseling patient:
== END 2019-02-19 14:43 | disposition home or self-care (01) | DRG 708 ==
LOC: ASU 06:25 → 3W 12:25

== ENCOUNTER 2023-01-10 15:57 | Inpatient (IN) ==
[2023-01-10] MEDS ORDERED: ONDANSETRON INJ 2 MG/ML 2 ML VIAL IV STA (16:50)
--- NOTE | 2023-01-10 16:50 | ED Triage Note ---
Date of Service January 10, 2023 History of Present Illness This patient was briefly evaluated while in triage. An abbreviated physical exam was performed. This patient is a 72-year-old Male who presents to the ED for evaluation of back pain. The patient was seen at the [facility] ER, and was transferred to the [facility] for an aortic tear. Patient had a subsequent decrease in flow to the kidneys, requiring dialysis. The patient has a stent in his aorta and kidney, and was supposed to be referred to a rehabilitation facility in [place]. When they got to the facility, it was an assisted living facility. They are here for placement. The patient's last dialysis was this morning. The patient follows with Dr. Peoples for history of renal tumor. Patient currently reports stomach pain, rated a 7 out of 10. Physical Exam CONSTITUTIONAL: Healthy and well nourished. Alert and oriented X 3. HEENT: No scleral icterus or conjunctival injection/pallor. RESPIRATORY: Clear to auscultation bilaterally with no wheezing, crackles, rhonchi or stridor. CARDIOVASCULAR: Regular rate and rhythm with no murmurs, rubs or gallops. GASTROINTESTINAL: Bowel sounds present in all quadrants. INTEGUMENTARY: No rash or other significant dermatologic conditions noted. HEMATOLOGIC: No ecchymosis or petechiae. PSYCHIATRIC: Positive affect. NEUROLOGIC: No focal neurologic deficits noted. Initial orders for labs and / or imaging were placed and patient was placed in the waiting area until a bed is available. Please see further documentation for the full ED course.
[2023-01-10 17:17] LABS: Basophils # (auto) 0.05 K/uL (0.00-0.20); Basophils % (auto) 0.4 %; Eosinophils # (auto) 0.11 K/uL (0.00-0.50); Hematocrit (blood only) 29.3 % (42.0-52.0); Hemoglobin 9.5 g/dl (14.0-18.0); Immature Granulocytes # (auto) 0.06 K/uL (0.01-0.20); Immature Granulocytes % (auto) 0.5 %; Lymphocytes # (auto) 2.58 K/uL (1.20-3.40); Lymphocytes % (auto) 22.5 %; Mean Corpuscular Hemoglobin 29.8 pg (25.0-34.0); Mean Corpuscular Hgb Conc 32.4 g/dL (32.0-36.0); Mean Corpuscular Volume 91.8 fL (80.0-100.0); Mean Platelet Volume 10.7 fL (9.4-12.4); Monocytes # (auto) 1.24 K/uL (0.11-0.59); Monocytes % (auto) 10.8 %; Neutrophils # (auto) 7.42 K/uL (1.40-6.50); Neutrophils % (auto) 64.8 %; Platelet Count 186 K/uL (130-400); RDW Coefficient of Variation 12.9 % (11.5-14.5); RDW Standard Deviation 43.1 fL (36.4-46.3); Red Blood Count 3.19 M/uL (4.70-6.10); White Blood Count 11.46 K/ul (4.8-10.8)
[2023-01-10 17:32] LABS: Alanine Aminotransferase 55 U/L (7-52); Albumin Globulin Ratio 0.8 (0.9-2); Albumin Level 3.5 gm/dl (3.4-5.0); Alkaline Phosphatase 134 U/L (34-104); Anion Gap 8 (3-11); Aspartate Aminotransferase 47 U/L (13-39); BUN Creatinine Ratio 5.7 (10-20); Bilirubin,Total 1.4 mg/dl (0.2-1.0); Blood Urea Nitrogen 12 mg/dl (6-23); Calcium 9.1 mg/dl (8.6-10.3); Carbon Dioxide 30 mmol/L (21-32); Chloride 99 mmol/L (98-107); Est GFR (African American) 35.3 ml/min; Est GFR (Non-African American) 30.5 ml/min; Globulin 4.5 gm/dl (2.5-4.0); Glucose 144 mg/dl (70-99(Fasting)); Lipase 21 U/L (11-82); Potassium 4.1 mmol/L (3.5-5.1); Sodium 137 mmol/L (136-145)
[2023-01-10 17:38] LABS: Troponin I High Sensitivity 26.5 pg/ml (0-20)
--- NOTE | 2023-01-10 19:22 | Emergency Department Note ---
Impression & Plan Weakness, History of thoracic aortic aneurysm repair, ESRD (end stage renal disease) on dialysis ED Provider Note Provider: Triston Milligan MD DATE OF SERVICE: 01/10/2023 CHIEF COMPLAINT: Weak needs placement HISTORY OF PRESENT ILLNESS: Patient is a 72-year-old gentleman history of type 2 diabetes, CAD, unfortunately a recent thoracic aortic aneurysm/dissection now status postrepair at [facility] presenting here today with son and daughter. Patient was discharged on Tuesday after multiweek stay in stent placement in his aorta. Fortunately the dissection extended into the renal arteries and required stenting here but suffered renal injury and is now on dialysis. Had dialysis earlier today. Evidently from discharge [facility] Patient with minimal assistance there and family states they have been helping him extensively. Able to ambulate briefly with walker but evidently there is minimal staff support there to assist him with ADLs and has not had any therapy while there. They have noted some increased weakness. Brought him here as they believe he needs placement with additional resources for care. Patient reports that he has a mild ongoing nagging slight abdominal discomfort but this has been ongoing. Denies any significant new issue with the incision site in the right groin where vascular access for the procedure was made. Has intermittently been on oxygen since the procedure and did receive several blood transfusions. He reports there is hope that the kidneys will rebound and eventually be able to come off dialysis. PAST MEDICAL HISTORY: As noted above MEDICATIONS: Reviewed home medication list SOCIAL HISTORY: Since discharge 3 days ago has been at [facility] in [place] but needs further placement and why he is here tonight PHYSICAL EXAM: GENERAL: alert and oriented in no acute distress on stretcher somewhat fatigued in appearance Head: normocephalic and atraumatic EYES: No injection, discharge or icterus. NECK: Trachea midline. ENT: Mucous membranes pink and moist. LUNGS: Airway patent. No retractions. Breath sounds clear minimally tachypneic HEART: Regular rate and rhythm. No chest wall tenderness with dialysis catheter in R upper chest ABDOMEN: Soft and non-tender, without guarding or rebound. SKIN: Acyanotic, warm, dry, without rashes EXTREMITIES: Without swelling, tenderness or deformity with a partially healed incision in the right groin without dehiscence or significant erythema NEUROLOGICAL: No focal deficits. No aphasia. No facial droop or slurred speech. EK bpm normal sinus rhythm. No PVC. No acute ST segment elevation or depression with a QTc of 414 CONTINUOUS CARDIAC MONITORING: was ordered and showed a heart rate of 80s-90s bpm in NSR 1 view chest x-ray per my interpretation: No evidence of pneumonia, pneumothorax, or free air. Aortic graft stent appears in the relative appropriate position without comparison available from previous. Patient's laboratory studies and imaging reviewed. Differential includes Infection, dehydration, metabolic abnormality, hypo/hyperglycemia, electrolyte disturbance, anemia, hypoxia, cardiac sources, intracerebral event, toxicologic, neurologic, as well as other pathologies. IMPRESSION/MEDICAL DECISION MAKING: Patient with extensive hospitalization. Using the patient portal provided by the patient's daughter able to access discharge instructions. Blood work actually little bit better and did have dialysis today. Chest x-ray obtained without significant abnormalities noted. Does not appear fluid overloaded. Lower suspicion for PE or DVT based on his clinical exam. Benign abdomen otherwise without tenderness. I doubt a significant infectious pathology at this time or rupture as he appears clinically stable. Would believe a significant arctic rupture or postsurgical infection infection would be apparent with fevers, hypotension, or severe tenderness. Slight leukocytosis is nonspecific and again I doubt sepsis or an infection at this time. Patient needs placement for rehab services as there is limited availability of this at [facility] where he was discharged to from the hospital in [place]. Family in agreement with plan for him to stay as they believe he needs placement and that is why they brought him here. Discussed with the hospitalist. Hospitalist did have me confirm with nephrology Dr. Corona availability of dialysis on Tuesday. This should be able to be accommodated. Did obtain records from [facility] and reviewed the discharge summary via the patient's portal as well as additional fax record. These were placed on the chart. DIAGNOSIS: Weakness, end-stage renal disease on dialysis, status post thoracic aortic repair DISPOSITION: Hospitalist will evaluate Patient was agreeable with this plan. Past Med/Surg History Medical History (Updated 01/10/23 @ 22:14 by Triston Milligan M.D.) Benign prostatic hyperplasia with urinary obstruction BPH (benign prostatic hyperplasia) CAD (coronary artery disease) stents x 2 (2000) Diabetes mellitus, type 2 diet controlled Elevated PSA GERD (gastroesophageal reflux disease) controlled History of abdominal aortic aneurysm (AAA) s/p repair + stent (2008) History of kidney cancer left kidney (2014) s/p tumor removal (s/p partial left nephrectomy) History of skin cancer face Hx of myocardial infarction 2000 - stents x 2 Hyperlipidemia Hypertension Malignant neoplasm of kidney excluding renal pelvis Renal mass, left Urethral stricture Surgical History (Updated 01/10/23 @ 20:24 by Triston Milligan M.D.) History of AAA (abdominal aortic aneurysm) repair + stent (2008) History of appendectomy History of kidney surgery Left partial robotic nephrectomy, hand assisted laparoscopy: 09/24/14: Grade I view, MAC#4, ETT 8 at [facility] Hx of abdominal surgery d/t peritonitis Hx of colonoscopy Hx of hernia repair Status post insertion of iliac artery stent (from trauma from endovascular procedure per records) Family History Brother Family history of diabetes mellitus Social History Smoking Status: Never smoker Tobacco Type: Cigarettes Second Hand Exposure: No; Do You Dip or Chew Tobacco: No; Hx Alcohol Use: No Hx Substance Use: No Preferred Language: Uzbek Communication Ability: Effective Beliefs That Will Affect Care: None Current Living Situation: Spouse Feels Safe at Home: Yes Assistive Devices: Glasses and Walker Allergies Allergies Allergy/AdvReac Type Severity Reaction Status Date / Time Iodinated Contrast Media Allergy Severe Anaphylaxis Verified 01/10/23 19:12 morphine Allergy Intermediate hives Verified 01/10/23 19:12 Penicillins Allergy Intermediate skin Verified 01/10/23 19:12 streaking tetanus toxoid, adsorbed Allergy Intermediate local skin Verified 01/10/23 19:12 irritation meperidine AdvReac Intermediate hallucinations, Verified 01/10/23 19:12 agitation Home Meds Home Medications Medication Instructions Recorded Confirmed aspirin 81 mg tablet,delayed 81 mg PO QAM 01/18/19 01/10/23 release (Nora Low Dose Aspirin) amlodipine 5 mg tablet 5 mg PO QAM 03/29/22 01/10/23 metoprolol tartrate 100 mg tablet 100 mg PO BID 03/29/22 01/10/23 simvastatin 40 mg tablet 40 mg PO HS 03/29/22 01/10/23 metformin 500 mg tablet 500 mg PO BIDM 09/30/22 01/10/23 acetaminophen 325 mg tablet 650 mg PO Q6H PRN Pain 01/10/23 01/10/23 (Tylenol) albuterol sulfate 90 mcg/actuation 2 puff inhalation Q6H PRN Wheezing 01/10/23 01/10/23 aerosol inhaler clopidogrel 75 mg tablet (Plavix) 75 mg PO QAM 01/10/23 01/10/23 fluticasone furoate 100 1 inh inhalation QAM 01/10/23 01/10/23 mcg-vilanterol 25 mcg/dose inhalation powder (Breo Ellipta) oxycodone 5 mg tablet 5 mg PO Q4H PRN Pain 01/10/23 01/10/23 polyethylene glycol 3350 17 17 g PO BID 01/10/23 01/10/23 gram/dose oral powder (Miralax) Results & Data (ED) Vital Signs Vital Signs - 24 hr 01/10/23 16:44 01/10/23 17:32 01/10/23 17:54 Temperature 36.8 C Temperature Source Temporal Artery Scan Pulse Rate 107 H 105 H Pulse Rate [Finger] 83 Pulse Rate from SpO2 Sensor Respiratory Rate 18 19 Respiratory Effort / Characteristics Non-Labored Spontaneous Non-Labored Spontaneous Respiratory Depth Normal Normal Respiratory Pattern Regular Blood Pressure 122/76 Blood Pressure [Right Arm] Blood Pressure Mean 91 Blood Pressure Mean [Right Arm] Blood Pressure Position Sitting Pulse Oximetry 96 97 Oxygen Delivery Method Room Air Room Air Oxygen Flow Rate Sepsis Recent Fever Within 48 Hours No Sepsis New/Unexplained Change in Mental Status N/A Sepsis Action Taken by Nursing No Action Required 01/10/23 18:06 01/10/23 18:09 01/10/23 21:52 Temperature Temperature Source Pulse Rate 106 H Pulse Rate [Finger] 98 H Pulse Rate from SpO2 Sensor Respiratory Rate 39 H 40 H Respiratory Effort / Characteristics Non-Labored Respiratory Depth Normal Respiratory Pattern Blood Pressure Blood Pressure [Right Arm] 117/60 Blood Pressure Mean Blood Pressure Mean [Right Arm] 79 Blood Pressure Position Pulse Oximetry 95 95 Oxygen Delivery Method Nasal Cannula Nasal Cannula Nasal Cannula Oxygen Flow Rate 3 3 2 Sepsis Recent Fever Within 48 Hours Sepsis New/Unexplained Change in Mental Status Sepsis Action Taken by Nursing 01/10/23 17:55 01/10/23 17:55 01/10/23 18:00 Temperature Temperature Source Pulse Rate 105 H 101 H Pulse Rate [Finger] Pulse Rate from SpO2 Sensor Respiratory Rate 25 H 40 H Respiratory Effort / Characteristics Respiratory Depth Respiratory Pattern Blood Pressure 117/60 Blood Pressure [Right Arm] Blood Pressure Mean 94 Blood Pressure Mean [Right Arm] Blood Pressure Position Pulse Oximetry Oxygen Delivery Method Oxygen Flow Rate Sepsis Recent Fever Within 48 Hours Sepsis New/Unexplained Change in Mental Status Sepsis Action Taken by Nursing 01/10/23 18:30 01/10/23 19:00 01/10/23 19:30 Temperature Temperature Source Pulse Rate 98 H 93 H 92 H Pulse Rate [Finger] Pulse Rate from SpO2 Sensor 99 H 93 H 89 Respiratory Rate 38 H 30 H 36 H Respiratory Effort / Characteristics Respiratory Depth Respiratory Pattern Blood Pressure Blood Pressure [Right Arm] Blood Pressure Mean Blood Pressure Mean [Right Arm] Blood Pressure Position Pulse Oximetry 93 95 95 Oxygen Delivery Method Oxygen Flow Rate Sepsis Recent Fever Within 48 Hours Sepsis New/Unexplained Change in Mental Status Sepsis Action Taken by Nursing 01/10/23 20:00 01/10/23 20:30 01/10/23 21:00 Temperature Temperature Source Pulse Rate 87 91 H 91 H Pulse Rate [Finger] Pulse Rate from SpO2 Sensor 88 94 H 91 H Respiratory Rate 36 H 20 32 H Respiratory Effort / Characteristics Respiratory Depth Respiratory Pattern Blood Pressure Blood Pressure [Right Arm] Blood Pressure Mean Blood Pressure Mean [Right Arm] Blood Pressure Position Pulse Oximetry 96 93 95 Oxygen Delivery Method Oxygen Flow Rate Sepsis Recent Fever Within 48 Hours Sepsis New/Unexplained Change in Mental Status Sepsis Action Taken by Nursing 01/10/23 21:30 Temperature Temperature Source Pulse Rate 96 H Pulse Rate [Finger] Pulse Rate from SpO2 Sensor 94 H Respiratory Rate 34 H Respiratory Effort / Characteristics Respiratory Depth Respiratory Pattern Blood Pressure Blood Pressure [Right Arm] Blood Pressure Mean Blood Pressure Mean [Right Arm] Blood Pressure Position Pulse Oximetry 94 Oxygen Delivery Method Nasal Cannula Oxygen Flow Rate 2 Sepsis Recent Fever Within 48 Hours Sepsis New/Unexplained Change in Mental Status Sepsis Action Taken by Nursing Laboratory Data 01/10/23 16:50 01/10/23 16:52 Lab Results 01/10/23 01/10/23 01/10/23 Range/Units 16:50 16:52 18:56 WBC 11.46 H (4.8-10.8) K/ul RBC 3.19 L (4.70-6.10) M/uL Hgb 9.5 L (14.0-18.0) g/dl Hct 29.3 L (42.0-52.0) % MCV 91.8 (80.0-100.0) fL MCH 29.8 (25.0-34.0) pg MCHC 32.4 (32.0-36.0) g/dL RDW Std Deviation 43.1 (36.4-46.3) fL RDW Coeff of Gennaro 12.9 (11.5-14.5) % Plt Count 186 (130-400) K/uL MPV 10.7 (9.4-12.4) fL Immature Gran % (Auto) 0.5 % Neut % (Auto) 64.8 % Lymph % (Auto) 22.5 % Waller % (Auto) 10.8 % Eos % (Auto) 1.0 % Baso % (Auto) 0.4 % Neut # (Auto) 7.42 H (1.40-6.50) K/uL Lymph # (Auto) 2.58 (1.20-3.40) K/uL Waller # (Auto) 1.24 H (0.11-0.59) K/uL Eos # (Auto) 0.11 (0.00-0.50) K/uL Baso # (Auto) 0.05 (0.00-0.20) K/uL Immature Gran # (Auto) 0.06 (0.01-0.20) K/uL Sodium 137 (136-145) mmol/L Potassium 4.1 (3.5-5.1) mmol/L Chloride 99 (98-107) mmol/L Carbon Dioxide 30 (21-32) mmol/L Anion Gap 8 (3-11) BUN 12 (6-23) mg/dl Creatinine 2.09 H (0.6-1.4) mg/dl Est Cr Clr Drug Dosing Not Reportable Est GFR ( Amer) 35.3 ml/min Est GFR (Non-Af Amer) 30.5 ml/min BUN/Creatinine Ratio 5.7 L (10-20) Glucose 144 H (70-99(Fasting)) mg/dl Calcium 9.1 (8.6-10.3) mg/dl Total Bilirubin 1.4 H (0.2-1.0) mg/dl AST 47 H (13-39) U/L ALT 55 H (7-52) U/L Alkaline Phosphatase 134 H (34-104) U/L Troponin I High Sens 26.5 H (0-20) pg/ml Total Protein 8.0 (6.0-8.3) gm/dl Albumin 3.5 (3.4-5.0) gm/dl Globulin 4.5 H (2.5-4.0) gm/dl Albumin/Globulin Ratio 0.8 L (0.9-2) Lipase 21 (11-82) U/L SARS-CoV-2 (PCR) NEGATIVE (Negative) Influenza Type A (PCR) Negative (Neg) Influenza Type B (PCR) Negative (Neg) RSV (RT-PCR) Negative (Neg) Administered Medications Discontinued Medications Ondansetron HCl (Ondansetron Inj 2 Mg/Ml 2 Ml Vial) 4 mg IV NOW STA Stop: 01/10/23 16:51 Last Admin: 01/10/23 17:01 Dose: 4 mg Documented By: ZIYAD Discharge Plan Visit Data Chief Complaint: Illness Stated Complaint: HAD DIALYSIS FOR [facility] NEEDS REHAB FACILTY ED Provider: Triston Milligan Discharge Problem: Weakness, History of thoracic aortic aneurysm repair, ESRD (end stage renal disease) on dialysis Patient Disposition: Being Evaluated by Hospitalist Discharge Instructions Interventions: ED Discharge Assessment Last Done: 01/10/23 21:52 Prescriptions Prescriptions: No Action metformin 500 mg tablet 500 mg PO BIDM aspirin [Nora Low Dose Aspirin] 81 mg Tablet,Delayed Release (Dr/Ec) 81 mg PO QAM acetaminophen [Tylenol] 325 mg Tablet 650 mg PO Q6H PRN (Reason: Pain) clopidogrel [Plavix] 75 mg Tablet 75 mg PO QAM polyethylene glycol 3350 [Miralax] 17 gram/dose Powder 17 g PO BID albuterol sulfate 90 mcg/actuation Hfa Aerosol Inhaler 2 puff INHALATION Q6H PRN (Reason: Wheezing) oxycodone 5 mg Tablet 5 mg PO Q4H PRN (Reason: Pain) fluticasone furoate-vilanterol [Breo Ellipta] 100-25 mcg/dose Blister With Device 1 inh INHALATION QAM metoprolol tartrate 100 mg tablet 100 mg PO BID simvastatin 40 mg tablet 40 mg PO HS amlodipine 5 mg tablet 5 mg PO QAM
[2023-01-10 19:50] LABS: Influenza A virus by PCR Negative (Neg); Influenza B virus by PCR Negative (Neg); RSV by PCR Negative (Neg); SARS CoV2 RNA(COVID-19) Ceph NEGATIVE (Negative)
--- NOTE | 2023-01-10 20:49 | History & Physical Report ---
Date of Service January 10, 2023 Assessment & Plan (1) Ambulatory dysfunction: (2) Generalized weakness: (3) ESRD (end stage renal disease) on dialysis: (4) History of thoracic aortic aneurysm repair: (5) Renal cell carcinoma: (6) GERD (gastroesophageal reflux disease): (7) Hypertension: (8) Diabetes mellitus, type 2: (9) CAD (coronary artery disease): (10) Malignant neoplasm of prostate: Plan Ambulatory dysfunction/generalized weakness- Status post prolonged stay in recovery from thoracic aneurysm repair Patient does not have any focal weakness, but does have generalized debilitating weakness His oral intake has been slowly improving ESRD on HD- Patient's last dialysis was earlier in the day on 01/10 Dr. Corona has been contacted, and has received notes from previous hospitalization, and will be consulted CAD/hypertension/thoracic aortic aneurysm repair- Continue current medications: Amlodipine, aspirin, clopidogrel, metoprolol tartrate and simvastatin Diabetes mellitus- Hold metformin Placed on Accu-Cheks with NovoLog SSI Disposition- Generalized weakness with ambulatory dysfunction, would benefit from inpatient rehab stay Consult social services technician Patient's family is very attentive, and reports they can drive him to and from where he needs to for dialysis etc. as needed. They did discuss [facility] and [facility] History of Present Illness Chief Complaint: The patient is brought to the emergency department by family, due to a mixup after being transferred from [facility] in [place] to what was thought to be a nursing facility, but was actually [facility], where he stayed for 2 days, and then they brought him to the ED for assessment Primary Care Provider: Gabriel Thomson The patient is a 72-year-old male with a past medical history including hypertension, diabetes mellitus, CAD, prostate cancer. He had been diagnosed with a aortic tear at a local hospital, and was then sent to [facility] where he had surgical repair. Associated with a tear he ended up having need for hemodialysis due to kidney injury. He had become severely debilitated during this hospital stay, and family felt and [facility] thought they were sending him to a rehab facility, but [facility]. He was there for 2 days, and the family realized that he needed to have more significant care to get improved, and he has been presented to the ED at [facility] for referral to a rehab facility. Allergies Allergy/AdvReac Type Severity Reaction Status Date / Time Iodinated Contrast Media Allergy Severe Anaphylaxis Verified 01/10/23 19:12 morphine Allergy Intermediate hives Verified 01/10/23 19:12 Penicillins Allergy Intermediate skin Verified 01/10/23 19:12 streaking tetanus toxoid, adsorbed Allergy Intermediate local skin Verified 01/10/23 19:12 irritation meperidine AdvReac Intermediate hallucinations, Verified 01/10/23 19:12 agitation Home Medications Medication Instructions Recorded Confirmed Type aspirin 81 mg tablet,delayed 81 mg PO QAM 01/18/19 01/10/23 History release (Nora Low Dose Aspirin) amlodipine 5 mg tablet 5 mg PO QAM 03/29/22 01/10/23 History metoprolol tartrate 100 mg tablet 100 mg PO BID 03/29/22 01/10/23 History simvastatin 40 mg tablet 40 mg PO HS 03/29/22 01/10/23 History metformin 500 mg tablet 500 mg PO BIDM 09/30/22 01/10/23 History acetaminophen 325 mg tablet 650 mg PO Q6H PRN Pain 01/10/23 01/10/23 History (Tylenol) albuterol sulfate 90 mcg/actuation 2 puff inhalation Q6H PRN Wheezing 01/10/23 01/10/23 History aerosol inhaler clopidogrel 75 mg tablet (Plavix) 75 mg PO QAM 01/10/23 01/10/23 History fluticasone furoate 100 1 inh inhalation QAM 01/10/23 01/10/23 History mcg-vilanterol 25 mcg/dose inhalation powder (Breo Ellipta) oxycodone 5 mg tablet 5 mg PO Q4H PRN Pain 01/10/23 01/10/23 History polyethylene glycol 3350 17 17 g PO BID 01/10/23 01/10/23 History gram/dose oral powder (Miralax) Past Med/Surg History Medical History (Updated 01/11/23 @ 03:37 by Romulo Burrell MD) Benign prostatic hyperplasia with urinary obstruction BPH (benign prostatic hyperplasia) CAD (coronary artery disease) stents x 2 (2000) Diabetes mellitus, type 2 diet controlled Elevated PSA GERD (gastroesophageal reflux disease) controlled History of abdominal aortic aneurysm (AAA) s/p repair + stent (2008) History of kidney cancer left kidney (2014) s/p tumor removal (s/p partial left nephrectomy) History of skin cancer face Hx of myocardial infarction 2001 - stents x 2 Hyperlipidemia Hypertension Malignant neoplasm of kidney excluding renal pelvis Renal mass, left Urethral stricture Surgical History (Updated 01/10/23 @ 20:24 by Triston Milligan M.D.) History of AAA (abdominal aortic aneurysm) repair + stent (2008) History of appendectomy History of kidney surgery Left partial robotic nephrectomy, hand assisted laparoscopy: 09/24/14: Grade I view, MAC#4, ETT 8 at [facility] Hx of abdominal surgery d/t peritonitis Hx of colonoscopy Hx of hernia repair Status post insertion of iliac artery stent (from trauma from endovascular procedure per records) Family History Brother Family history of diabetes mellitus Social History Smoking Status: Former smoker Tobacco Type: Cigarettes Second Hand Exposure: No; Do You Dip or Chew Tobacco: No; Hx Alcohol Use: No Hx Substance Use: No Preferred Language: Romansh Communication Ability: Effective Cigar Sorter Required: No Beliefs That Will Affect Care: None Current Living Situation: Alone Current Living Situation Comment: single family home Feels Safe at Home: Yes Safety Concerns: Feels Safe At This Time Assistive Devices: Cane Review of Systems Review of Systems: The patient denies chest pain, palpitations, shortness of breath, dyspnea on exertion, cough, lower extremity swelling, sore throat, fevers, chills, sweats, nausea, vomiting, diarrhea , constipation, abdominal pain, pelvic pain, blood in urine or stool, dysuria, urinary frequency or urgency, lightheadedness, dizziness, headache, memory loss, loss of consciousness, rash, abnormal bruising or bleeding, focal weakness, numbness or tingling in arms or legs, generalized arthralgias or myalgias, back or neck pain, or night sweats. The review of systems is otherwise negative other than for that already noted above, and at least 10 systems have been reviewed. Physical Exam Physical Exam: The patient is awake, alert and oriented 3, well developed and well nourished, normocephalic and atraumatic, lying in bed and in no acute distress. HEENT--PERRL, EOMI, mucous membranes and oropharynx normal Neck--supple. No JVD. No bruits. Thyroid normal, trachea midline, no adenopathy. Heart--normal S1 and S2. No murmurs, rubs or gallops. Lungs--clear bilaterally, no respiratory distress, no accessory muscle use. Abdomen--normal bowel sounds and soft. Nontender. Nondistended, no hernias or masses, no organomegaly. Extremities--no cyanosis or clubbing. No edema. Dermatologic--normal skin turgor, normal color, no abnormal lymph nodes, no rash. Neurologic--cranial nerves II through XII grossly intact. Rheumatologic--normal range of motion. Psychiatric--normal affect. Results & Data Results & Data Vital Signs (Past 12 Hours) Vital Signs Temp Pulse Pulse Resp BP BP Pulse Ox 01/10/23 18:09 98 H 40 H 117/60 95 01/10/23 18:06 106 H 39 H 95 01/10/23 17:54 105 H 01/10/23 17:32 83 19 97 01/10/23 16:44 36.8 C 107 H 18 122/76 96 O2 Del Method O2 Flow Rate 01/10/23 18:09 Nasal Cannula 3 01/10/23 18:06 Nasal Cannula 3 01/10/23 17:54 01/10/23 17:32 Room Air 01/10/23 16:44 Room Air Laboratory Results Laboratory Results WBC 11.46 K/ul (4.8-10.8) H 01/10/23 16:50 RBC 3.19 M/uL (4.70-6.10) L 01/10/23 16:50 Hgb 9.5 g/dl (14.0-18.0) L 01/10/23 16:50 Hct 29.3 % (42.0-52.0) L 01/10/23 16:50 MCV 91.8 fL (80.0-100.0) 01/10/23 16:50 MCH 29.8 pg (25.0-34.0) 01/10/23 16:50 MCHC 32.4 g/dL (32.0-36.0) 01/10/23 16:50 RDW Std Deviation 43.1 fL (36.4-46.3) 01/10/23 16:50 RDW Coeff of Gennaro 12.9 % (11.5-14.5) 01/10/23 16:50 Plt Count 186 K/uL (130-400) 01/10/23 16:50 MPV 10.7 fL (9.4-12.4) 01/10/23 16:50 Immature Gran % (Auto) 0.5 % 01/10/23 16:50 Neut % (Auto) 64.8 % 01/10/23 16:50 Lymph % (Auto) 22.5 % 01/10/23 16:50 [place] % (Auto) 10.8 % 01/10/23 16:50 Eos % (Auto) 1.0 % 01/10/23 16:50 Baso % (Auto) 0.4 % 01/10/23 16:50 Neut # (Auto) 7.42 K/uL (1.40-6.50) H 01/10/23 16:50 Lymph # (Auto) 2.58 K/uL (1.20-3.40) 01/10/23 16:50 [place] # (Auto) 1.24 K/uL (0.11-0.59) H 01/10/23 16:50 Eos # (Auto) 0.11 K/uL (0.00-0.50) 01/10/23 16:50 Baso # (Auto) 0.05 K/uL (0.00-0.20) 01/10/23 16:50 Immature Gran # (Auto) 0.06 K/uL (0.01-0.20) 01/10/23 16:50 Sodium 137 mmol/L (136-145) 01/10/23 16:52 Potassium 4.1 mmol/L (3.5-5.1) 01/10/23 16:52 Chloride 99 mmol/L (98-107) 01/10/23 16:52 Carbon Dioxide 30 mmol/L (21-32) 01/10/23 16:52 Anion Gap 8 (3-11) 01/10/23 16:52 BUN 12 mg/dl (6-23) 01/10/23 16:52 Creatinine 2.09 mg/dl (0.6-1.4) H 01/10/23 16:52 Est Cr Clr Drug Dosing Not Reportable 01/10/23 16:52 Est GFR ( Amer) 35.3 ml/min 01/10/23 16:52 Est GFR (Non-Af Amer) 30.5 ml/min 01/10/23 16:52 BUN/Creatinine Ratio 5.7 (10-20) L 01/10/23 16:52 Glucose 144 mg/dl (70-99(Fasting)) H 01/10/23 16:52 POC Glucose 155 mg/dl (70-99) H 01/10/23 23:15 Calcium 9.1 mg/dl (8.6-10.3) 01/10/23 16:52 Total Bilirubin 1.4 mg/dl (0.2-1.0) H 01/10/23 16:52 AST 47 U/L (13-39) H 01/10/23 16:52 ALT 55 U/L (7-52) H 01/10/23 16:52 Alkaline Phosphatase 134 U/L (34-104) H 01/10/23 16:52 Troponin I High Sens 26.5 pg/ml (0-20) H 01/10/23 16:52 Total Protein 8.0 gm/dl (6.0-8.3) 01/10/23 16:52 Albumin 3.5 gm/dl (3.4-5.0) 01/10/23 16:52 Globulin 4.5 gm/dl (2.5-4.0) H 01/10/23 16:52 Albumin/Globulin Ratio 0.8 (0.9-2) L 01/10/23 16:52 Lipase 21 U/L (11-82) 01/10/23 16:52 SARS-CoV-2 (PCR) NEGATIVE (Negative) 01/10/23 18:56 Influenza Type A (PCR) Negative (Neg) 01/10/23 18:56 Influenza Type B (PCR) Negative (Neg) 01/10/23 18:56 RSV (RT-PCR) Negative (Neg) 01/10/23 18:56 Code Status & VTE Plan Code Status Full code VTE Prophylaxis Plan VTE Prophylaxis will be ordered: Yes PG Care Time/CCT Total # of Minutes Spent Total Time Spent with Patient: Total time spent is greater than 50% in coordination of care (as documented) at patient's floor/unit and/or counseling patient: Coding Level of Care Code 72110 INT INP/OBS CARE 3/75MIN Diagnoses Ambulatory dysfunction R26.2 Generalized weakness R53.1 ESRD (end stage renal disease) on dialysis N18.6; Z99.2 History of thoracic aortic aneurysm repair Z98.890; Z86.79 Renal cell carcinoma C64.9 GERD (gastroesophageal reflux disease) K21.9 Hypertension I10 Diabetes mellitus, type 2 E11.9 CAD (coronary artery disease) I25.10 Malignant neoplasm of prostate C61
[2023-01-10] MEDS ORDERED: DEXTROSE 50% 50 ML SYRINGE IV PRN (22:25)
[2023-01-10] MEDS ORDERED: GLUCOSE 40% GEL 15 GM TUBE PO PRN (22:25)
[2023-01-10] MEDS ORDERED: oxyCODONE HCL IR 5 MG TAB (IMMEDIATE RELEASE) PO PRN (22:25)
[2023-01-10] MEDS ORDERED: CARBOHYDRATES FOR HYPOGLYCEMIA PO PRN (22:25)
[2023-01-10] MEDS ORDERED: GLUCOSE 10 TAB/TUBE PO PRN (22:25)
[2023-01-10] MEDS ORDERED: ONDANSETRON INJ 2 MG/ML 2 ML VIAL IV PRN (22:25)
[2023-01-10] MEDS ORDERED: GLUCAGON FOR INJ 1 MG VIAL SQ PRN (22:25)
[2023-01-10] MEDS ORDERED: INFLUENZA VACCINE HIGH-DOSE (HD-IIV4) PF 65+ 0.7mL SYR IM ONE (23:10)
[2023-01-10] MEDS: HEPARIN SOD 5,000 UNIT/0.5 ML VIAL SQ SCH (23:16)
[2023-01-10] MEDS: METOPROLOL TARTRATE 100 MG TAB PO SCH (23:17)
[2023-01-10] MEDS: SIMVASTATIN 40 MG TAB PO SCH (23:17)
[2023-01-10] MEDS: INSULIN ASPART PER UNIT CHARGE SC SCH (23:24)
[2023-01-10] MEDS: POLYETHYLENE (MIRALAX) 17 GM PACK PO SCH (23:25)
[2023-01-11 06:14] LABS: Appearance Urine Cloudy (Clear); Blood Urine 3+ (Negative); Color Urine Dark Yellow; Epithelial Cell Urine Auto >30 /lpf (0-5); Glucose Urine UA Negative (Negative); Ketones Urine Trace (Negative); Leukocyte Esterase Urine Trace (Negative); Nitrite Urine Negative (Negative); Protein Urine 2+ (Negative); Specific Gravity Urine 1.018 (1.000-1.030); Urobilinogen Urine Negative (Negative); pH Urine 5.5 (4.5-7.5)
[2023-01-11 06:17] LABS: Bilirubin Urine 1+ (Negative)
[2023-01-11 06:38] LABS: Amorphous Sediment Urine Present (None Prsent); Bacteria Urine Automated 2+ (Negative)
--- NOTE | 2023-01-11 07:40 | XRay Report ---
XR chest 1V portable HISTORY: weak COMPARISON: Chest 01/26/2019. FINDINGS: There are low lung volumes. No pneumothorax. No pleural effusions. The cardiac silhouette i s top normal in size. No evidence for pulmonary edema. No focal lung consolidations to suggest a pneu monia. A thoracic aortic stent graft is noted. A right jugular catheter terminates in the distal SVC. IMPRESSION: No acute process. ACT 112: Negative or not required by law. Electronically signed by: Alvarado Bo M.D. 01/11/2023 7:39 AM
[2023-01-11 07:58] LABS: Hematocrit (blood only) 23.5 % (42.0-52.0); Hemoglobin 7.4 g/dl (14.0-18.0); Mean Corpuscular Hemoglobin 29.8 pg (25.0-34.0); Mean Corpuscular Hgb Conc 31.5 g/dL (32.0-36.0); Mean Corpuscular Volume 94.8 fL (80.0-100.0); Mean Platelet Volume 11.1 fL (9.4-12.4); Platelet Count 147 K/uL (130-400); RDW Coefficient of Variation 12.9 % (11.5-14.5); RDW Standard Deviation 44.6 fL (36.4-46.3); Red Blood Count 2.48 M/uL (4.70-6.10); White Blood Count 7.75 K/ul (4.8-10.8)
--- NOTE | 2023-01-11 08:02 | Electrocardiogram Report ---
Test Reason : Blood Pressure : / mmHG Vent. Rate : 097 BPM Atrial Rate : 097 BPM P-R Int : 166 ms QRS Dur : 070 ms QT Int : 326 ms P-R-T Axes : 046 265 084 degrees QTc Int : 414 ms Normal sinus rhythm Right superior axis deviation possible Inferior-posterior infarct , age undetermined Abnormal ECG When compared with ECG of 29-MAR-2022 14:35, Vent. rate has increased BY 49 BPM QRS duration has decreased Confirmed by Camilo Arreaga ([id number]) on 01/11/2023 8:02:21 AM Referred By: REFERRED SELF Confirmed By:Michael Arreaga
--- NOTE | 2023-01-11 08:03 | Electrocardiogram Report ---
Test Reason : Blood Pressure : / mmHG Vent. Rate : 077 BPM Atrial Rate : 077 BPM P-R Int : 174 ms QRS Dur : 084 ms QT Int : 372 ms P-R-T Axes : 053 -74 067 degrees QTc Int : 420 ms Sinus rhythm with Premature atrial complexes Left axis deviation possible Inferior-posterior infarct (cited on or before 10-JAN-2023) Abnormal ECG When compared with ECG of 10-JAN-2023 16:53, (unconfirmed) Premature atrial complexes are now Present Confirmed by Camilo Arreaga ([id number]) on 01/11/2023 8:03:39 AM Referred By: REFERRED SELF Confirmed By:Michael Arreaga
[2023-01-11 08:08] LABS: Albumin Globulin Ratio 0.8 (0.9-2); Albumin Level 2.9 gm/dl (3.4-5.0); BUN Creatinine Ratio 6.2 (10-20); Bilirubin,Total 0.6 mg/dl (0.2-1.0); Calcium 8.2 mg/dl (8.6-10.3); Creatinine Clr Calc Pharmacy 19.2 ml/min; Est GFR (African American) 18.8 ml/min; Est GFR (Non-African American) 16.2 ml/min; Globulin 3.8 gm/dl (2.5-4.0); Magnesium 1.8 mg/dl (1.7-2.4); Potassium 4.1 mmol/L (3.5-5.1); Total Protein 6.7 gm/dl (6.0-8.3)
[2023-01-11 08:17] LABS: Basophils # (auto) 0.03 K/uL (0.00-0.20); Basophils % (auto) 0.4 %; Eosinophils # (auto) 0.22 K/uL (0.00-0.50); Eosinophils % (auto) 2.8 %; Estimated Average Glucose 108 mg/dl; Hemoglobin A1C 5.4 % (4.5-5.6); Immature Granulocytes # (auto) 0.03 K/uL (0.01-0.20); Immature Granulocytes % (auto) 0.4 %; Lymphocytes # (auto) 1.55 K/uL (1.20-3.40); Monocytes # (auto) 1.08 K/uL (0.11-0.59); Monocytes % (auto) 13.9 %; Neutrophils # (auto) 4.84 K/uL (1.40-6.50); Neutrophils % (auto) 62.5 %; Polychromasia 1+
[2023-01-11] MEDS: FLUTICASONE/VILANTEROL 100/25MCG 14 PUFFS/INHALER INH SCH (08:27)
[2023-01-11] MEDS: CLOPIDOGREL BISULFATE 75 MG TAB PO SCH (08:28)
[2023-01-11] MEDS: METOPROLOL TARTRATE 100 MG TAB PO SCH ×2 (08:28→20:06)
[2023-01-11] MEDS: ASPIRIN 81 MG ECTAB PO SCH (08:28)
[2023-01-11] MEDS: POLYETHYLENE (MIRALAX) 17 GM PACK PO SCH ×3 (08:28→20:06)
[2023-01-11] MEDS: amLODIPine BESYLATE 5 MG TAB PO SCH (08:28)
[2023-01-11] MEDS: HEPARIN SOD 5,000 UNIT/0.5 ML VIAL SQ SCH ×2 (08:28→20:06)
[2023-01-11] MEDS: INSULIN ASPART PER UNIT CHARGE SC SCH ×4 (09:14→20:05)
--- NOTE | 2023-01-11 09:17 | Nephrology Consultation ---
Date of Consultation January 11, 2023 Assessment & Plan (1) CAROLINA (acute kidney injury): Dialysis dependent CAROLINA. CAROLINA attributed to bilateral renal infarcts. Non- oliguric. Creatinine continues to rise between treatments. Baseline creatinine previously 1.4 mg/dL. Started HD 12/20. TDC functioning well. Completed HD yesterday. Adequate clearance and UF with HD. Volume status controlled. Electrolytes acceptable. Next HD anticipated tomorrow. Medications appropriate for kidney function. (2) Ambulatory dysfunction: PT/OT pending. Anticipated placement. (3) History of thoracic aortic aneurysm repair: s/p renal artery stenting. (4) Hypertension: BP acceptable. Volume status appropriate. Renal diet. Medications appropriate for kidney function. Avoid RAAS blockade. History of Present Illness Reason for Consultation: CAROLINA requiring hemodialysis Requesting Physician: Xenia Paez MD Attending Physician: Xenia Paez MD History of Present Illness Mr. Yaron Acosta is a 72 year-old male with coronary artery disease and history of aortic dissection (initial endovascular repair at [facility] in 2008) who was recently admitted to [facility] with type B aortic dissection extending form the L subclavian to a prior EVAR. There was significant thrombus involving the endograft extending into the renal arteries. Yaron presented with kidney injury from bilateral renal infarction. He underwent bilateral renal artery stenting with EVAR and IVUS on December 23. Unfortunately, he did require hemodialysis for CAROLINA. Baseline creatinine prior to the admission had been 1.4 mg/dL. HD was started December 20. Yaron has been dialyzing via a RIJ permcath. After an extensive hospitalization, he was discharged home to [facility] in [place] last weekend. He completed a scheduled outpatient dialysis at [facility] yesterday. This was his first outpatient HD treatment. Urine output has improved but there has not been significant evidence of kidney recovery. Yaron was scheduled to dialyze MWF at [facility] under my care. Unfortunately, he is notably debilitated. He is wheelchair and at least 1 person assist dependent. His family brought Yaron to the ER at [facility] yesterday with concerns for his safety at home. He was admitted for potential placement at SNF or rehab facility. Daphney was seen and evaluated in his hospital room this morning. He feels well overall. He admits to generalized weakness but no other complaints. He denies fluid retention or edema. He is tolerating dialysis well. Outpatient Rx is MWF 3 hours on a 180 optiflux at 350/600. Net UF yesterday 1.1 L. Medical history is also notable for a history of RCC s/p partial nephrectomy as well as a history of prostatectomy for prostate cancer. He has had longstanding hypertension. Allergies Allergy/AdvReac Type Severity Reaction Status Date / Time Iodinated Contrast Media Allergy Severe Anaphylaxis Verified 01/10/23 19:12 morphine Allergy Intermediate hives Verified 01/10/23 19:12 Penicillins Allergy Intermediate skin Verified 01/10/23 19:12 streaking tetanus toxoid, adsorbed Allergy Intermediate local skin Verified 01/10/23 19:12 irritation meperidine AdvReac Intermediate hallucinations, Verified 01/10/23 19:12 agitation Home Medications Medication Instructions Recorded Confirmed Type aspirin 81 mg tablet,delayed 81 mg PO QAM 01/18/19 01/10/23 History release (Nora Low Dose Aspirin) amlodipine 5 mg tablet 5 mg PO QAM 03/29/22 01/10/23 History metoprolol tartrate 100 mg tablet 100 mg PO BID 03/29/22 01/10/23 History simvastatin 40 mg tablet 40 mg PO HS 03/29/22 01/10/23 History metformin 500 mg tablet 500 mg PO BIDM 09/30/22 01/10/23 History acetaminophen 325 mg tablet 650 mg PO Q6H PRN Pain 01/10/23 01/10/23 History (Tylenol) albuterol sulfate 90 mcg/actuation 2 puff inhalation Q6H PRN Wheezing 01/10/23 01/10/23 History aerosol inhaler clopidogrel 75 mg tablet (Plavix) 75 mg PO QAM 01/10/23 01/10/23 History fluticasone furoate 100 1 inh inhalation QAM 01/10/23 01/10/23 History mcg-vilanterol 25 mcg/dose inhalation powder (Breo Ellipta) oxycodone 5 mg tablet 5 mg PO Q4H PRN Pain 01/10/23 01/10/23 History polyethylene glycol 3350 17 17 g PO BID 01/10/23 01/10/23 History gram/dose oral powder (Miralax) Patient History Medical History (Updated 01/11/23 @ 10:32 by Song C. Cj, DO) Benign prostatic hyperplasia with urinary obstruction BPH (benign prostatic hyperplasia) CAD (coronary artery disease) stents x 2 (2000) Diabetes mellitus, type 2 diet controlled Elevated PSA GERD (gastroesophageal reflux disease) controlled History of abdominal aortic aneurysm (AAA) s/p repair + stent (2008) History of kidney cancer left kidney (2014) s/p tumor removal (s/p partial left nephrectomy) History of skin cancer face Hx of myocardial infarction 2000 - stents x 2 Hyperlipidemia Hypertension Malignant neoplasm of kidney excluding renal pelvis Renal mass, left Urethral stricture Surgical History (Updated 01/10/23 @ 20:24 by Triston Milligan M.D.) History of AAA (abdominal aortic aneurysm) repair + stent (2008) History of appendectomy History of kidney surgery Left partial robotic nephrectomy, hand assisted laparoscopy: 09/24/14: Grade I view, MAC#4, ETT 8 at [facility] Hx of abdominal surgery d/t peritonitis Hx of colonoscopy Hx of hernia repair Status post insertion of iliac artery stent (from trauma from endovascular procedure per records) Family History Brother Family history of diabetes mellitus Social History Smoking Status: Former smoker Tobacco Type: Cigarettes Second Hand Exposure: No; Do You Dip or Chew Tobacco: No; Hx Alcohol Use: No Hx Substance Use: No Preferred Language: [place] Communication Ability: Effective Head Start Coordinator Required: No Beliefs That Will Affect Care: None Current Living Situation: Alone Current Living Situation Comment: single family home Feels Safe at Home: Yes Safety Concerns: Feels Safe At This Time Assistive Devices: Cane Review of Systems Review of Systems: All systems reviewed & are unremarkable except as noted in HPI & below Physical Exam Constitutional: well developed; no acute distress Eyes: no scleral abnormality and no corneal abnormality ENMT: Mouth: no oral mucosal abnormality and oral mucous membranes not dry Neck: normal visual inspection and trachea midline RIJ TDC Respiratory: normal respiratory effort Auscultation: lungs clear to auscultation bilaterally Cardiovascular: Rate/Rhythm: regular rate Heart Sounds: normal S1 and normal S2 Extremities: no edema Musculoskeletal: Extremities: no cyanosis and no clubbing Skin: normal turgor; no lesions Neurologic: Motor/Sensory: no tremor and no asterixis Psychiatric: Orientation: alert and oriented x 3 Results & Data Vital Signs (Past 12 Hours) Vital Signs Temp Pulse Pulse Resp BP BP Pulse Ox 01/11/23 08:38 01/11/23 08:03 36.9 C 78 18 120/68 97 01/11/23 07:17 72 01/11/23 03:21 36.9 C 78 20 111/60 92 01/10/23 22:45 91 H 01/10/23 23:00 01/10/23 22:25 36.7 C 88 18 115/68 92 01/10/23 21:30 96 H 34 H 94 01/10/23 21:52 O2 Del Method O2 Flow Rate 01/11/23 08:38 Nasal Cannula 1 01/11/23 08:03 Nasal Cannula 1 01/11/23 07:17 01/11/23 03:21 Nasal Cannula 2 01/10/23 22:45 01/10/23 23:00 Nasal Cannula 2 01/10/23 22:25 Nasal Cannula 2 01/10/23 21:30 Nasal Cannula 2 01/10/23 21:52 Nasal Cannula 2 Laboratory Results Laboratory Results - last 24 hr 01/10/23 01/10/23 01/10/23 16:50 16:52 18:56 WBC 11.46 H RBC 3.19 L Hgb 9.5 L Hct 29.3 L MCV 91.8 MCH 29.8 MCHC 32.4 RDW Std Deviation 43.1 RDW Coeff of Gennaro 12.9 Plt Count 186 MPV 10.7 Immature Gran % (Auto) 0.5 Neut % (Auto) 64.8 Lymph % (Auto) 22.5 Parker % (Auto) 10.8 Eos % (Auto) 1.0 Baso % (Auto) 0.4 Neut # (Auto) 7.42 H Lymph # (Auto) 2.58 Parker # (Auto) 1.24 H Eos # (Auto) 0.11 Baso # (Auto) 0.05 Immature Gran # (Auto) 0.06 Polychromasia Sodium 137 Potassium 4.1 Chloride 99 Carbon Dioxide 30 Anion Gap 8 BUN 12 Creatinine 2.09 H Est Cr Clr Drug Dosing Not Reportable Est GFR ( Amer) 35.3 Est GFR (Non-Af Amer) 30.5 BUN/Creatinine Ratio 5.7 L Glucose 144 H POC Glucose Estimat Average Glucose Hemoglobin A1c Calcium 9.1 Magnesium Total Bilirubin 1.4 H AST 47 H ALT 55 H Alkaline Phosphatase 134 H Troponin I High Sens 26.5 H Total Protein 8.0 Albumin 3.5 Globulin 4.5 H Albumin/Globulin Ratio 0.8 L Lipase 21 Urine Color Urine Appearance Urine pH Ur Specific [place] Urine Protein Urine Glucose (UA) Urine Ketones Urine Blood Urine Nitrite Urine Bilirubin Urine Urobilinogen Ur Leukocyte Esterase Urine WBC (Auto) Urine RBC (Auto) U Hyaline Cast (Auto) U Epithel Cells (Auto) Urine Bacteria (Auto) Ur Renal Epithelial Cell Amorphous Sediment Urine Yeast Nasal Screen MRSA (PCR) SARS-CoV-2 (PCR) NEGATIVE Influenza Type A (PCR) Negative Influenza Type B (PCR) Negative RSV (RT-PCR) Negative 01/10/23 01/11/23 01/11/23 23:15 06:39 06:39 WBC 7.75 RBC 2.48 L Hgb 7.4 L Hct 23.5 L MCV 94.8 MCH 29.8 MCHC 31.5 L RDW Std Deviation 44.6 RDW Coeff of Gennaro 12.9 Plt Count 147 MPV 11.1 Immature Gran % (Auto) 0.4 Neut % (Auto) 62.5 Lymph % (Auto) 20.0 Parker % (Auto) 13.9 Eos % (Auto) 2.8 Baso % (Auto) 0.4 Neut # (Auto) 4.84 Lymph # (Auto) 1.55 Parker # (Auto) 1.08 H Eos # (Auto) 0.22 Baso # (Auto) 0.03 Immature Gran # (Auto) 0.03 Polychromasia 1+ Sodium 139 Potassium 4.1 Chloride 101 Carbon Dioxide 31 Anion Gap 7 BUN 22 Creatinine 3.53 H D Est Cr Clr Drug Dosing 19.2 Est GFR ( Amer) 18.8 Est GFR (Non-Af Amer) 16.2 BUN/Creatinine Ratio 6.2 L Glucose 124 H POC Glucose 155 H Estimat Average Glucose Hemoglobin A1c Calcium 8.2 L Magnesium 1.8 Total Bilirubin 0.6 D AST 52 H ALT 56 H Alkaline Phosphatase 112 H Troponin I High Sens Total Protein 6.7 Albumin 2.9 L Globulin 3.8 Albumin/Globulin Ratio 0.8 L Lipase Urine Color Urine Appearance Urine pH Ur Specific [place] Urine Protein Urine Glucose (UA) Urine Ketones Urine Blood Urine Nitrite Urine Bilirubin Urine Urobilinogen Ur Leukocyte Esterase Urine WBC (Auto) Urine RBC (Auto) U Hyaline Cast (Auto) U Epithel Cells (Auto) Urine Bacteria (Auto) Ur Renal Epithelial Cell Amorphous Sediment Urine Yeast Nasal Screen MRSA (PCR) SARS-CoV-2 (PCR) Influenza Type A (PCR) Influenza Type B (PCR) RSV (RT-PCR) 01/11/23 01/11/23 01/11/23 06:39 08:12 Unknown WBC RBC Hgb Hct MCV MCH MCHC RDW Std Deviation RDW Coeff of Gennaro Plt Count MPV Immature Gran % (Auto) Neut % (Auto) Lymph % (Auto) Parker % (Auto) Eos % (Auto) Baso % (Auto) Neut # (Auto) Lymph # (Auto) Parker # (Auto) Eos # (Auto) Baso # (Auto) Immature Gran # (Auto) Polychromasia Sodium Potassium Chloride Carbon Dioxide Anion Gap BUN Creatinine Est Cr Clr Drug Dosing Est GFR ( Amer) Est GFR (Non-Af Amer) BUN/Creatinine Ratio Glucose POC Glucose 127 H Estimat Average Glucose 108 Hemoglobin A1c 5.4 Calcium Magnesium Total Bilirubin AST ALT Alkaline Phosphatase Troponin I High Sens Total Protein Albumin Globulin Albumin/Globulin Ratio Lipase Urine Color Dark Yellow Urine Appearance Cloudy A Urine pH 5.5 Ur Specific [place] 1.018 Urine Protein 2+ H Urine Glucose (UA) Negative Urine Ketones Trace H Urine Blood 3+ H Urine Nitrite Negative Urine Bilirubin 1+ H Urine Urobilinogen Negative Ur Leukocyte Esterase Trace H Urine WBC (Auto) 5-10 H Urine RBC (Auto) 10-30 H U Hyaline Cast (Auto) 1-5 U Epithel Cells (Auto) >30 H Urine Bacteria (Auto) 2+ H Ur Renal Epithelial Cell Not Reportable Amorphous Sediment Present A Urine Yeast Not Reportable Nasal Screen MRSA (PCR) SARS-CoV-2 (PCR) Influenza Type A (PCR) Influenza Type B (PCR) RSV (RT-PCR) 01/11/23 Unknown WBC RBC Hgb Hct MCV MCH MCHC RDW Std Deviation RDW Coeff of Gennaro Plt Count MPV Immature Gran % (Auto) Neut % (Auto) Lymph % (Auto) Parker % (Auto) Eos % (Auto) Baso % (Auto) Neut # (Auto) Lymph # (Auto) Parker # (Auto) Eos # (Auto) Baso # (Auto) Immature Gran # (Auto) Polychromasia Sodium Potassium Chloride Carbon Dioxide Anion Gap BUN Creatinine Est Cr Clr Drug Dosing Est GFR ( Amer) Est GFR (Non-Af Amer) BUN/Creatinine Ratio Glucose POC Glucose Estimat Average Glucose Hemoglobin A1c Calcium Magnesium Total Bilirubin AST ALT Alkaline Phosphatase Troponin I High Sens Total Protein Albumin Globulin Albumin/Globulin Ratio Lipase Urine Color Urine Appearance Urine pH Ur Specific [place] Urine Protein Urine Glucose (UA) Urine Ketones Urine Blood Urine Nitrite Urine Bilirubin Urine Urobilinogen Ur Leukocyte Esterase Urine WBC (Auto) Urine RBC (Auto) U Hyaline Cast (Auto) U Epithel Cells (Auto) Urine Bacteria (Auto) Ur Renal Epithelial Cell Amorphous Sediment Urine Yeast Nasal Screen MRSA (PCR) Negative SARS-CoV-2 (PCR) Influenza Type A (PCR) Influenza Type B (PCR) RSV (RT-PCR) Diagnostic Findings XR chest 1V portable COMPARISON: Chest 01/26/2019. FINDINGS: There are low lung volumes. No pneumothorax. No pleural effusions. The cardiac silhouette is top normal in size. No evidence for pulmonary edema. No focal lung consolidations to suggest a pneumonia. A thoracic aortic stent graft is noted. A right jugular catheter terminates in the distal SVC. IMPRESSION: No acute process. PG Care Time/CCT Total # of Minutes Spent Total Time Spent with Patient: Total time spent is greater than 50% in coordination of care (as documented) at patient's floor/unit and/or counseling patient: Coding Level of Care Code 68529 IN/OBS CONSULT LVL 4,60M Diagnoses CAROLINA (acute kidney injury) N17.9 Ambulatory dysfunction R26.2 History of thoracic aortic aneurysm repair Z98.890; Z86.79 Hypertension I10
[2023-01-11] MEDS: ACETAMINOPHEN 325 MG TAB PO PRN ×2 (10:53→20:04)
--- NOTE | 2023-01-11 15:18 | Hospitalist Progress Note ---
Date of Service January 11, 2023 Assessment & Plan (1) Ambulatory dysfunction: (2) Generalized weakness: (3) ESRD (end stage renal disease) on dialysis: (4) History of thoracic aortic aneurysm repair: (5) Renal cell carcinoma: (6) GERD (gastroesophageal reflux disease): (7) Hypertension: (8) Diabetes mellitus, type 2: (9) CAD (coronary artery disease): (10) Malignant neoplasm of prostate: Plan Ambulatory dysfunction/generalized weakness- Status post prolonged stay in recovery from thoracic aneurysm repair patient was recently at [facility] where he had a thoracic aneurysm repair done. The family was under the impression that he was being discharged to a rehab facility but it ended up being [facility]. 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 Should not be on metformin even on discharge given ESRD Placed on Accu-Cheks with NovoLog SSI Disposition- will likely need inpatient rehab versus SNF Admission and Anticipated Discharge Date Admission Date: January 10, 2023 Subjective patient feels well. Denies chest pain or shortness of breath. Review of Systems Review of Systems: All systems reviewed & are unremarkable except as noted in Subjective Physical Exam Physical Exam: general: Awake, conversant Heart: S1, S2/regular rate and rhythm, no murmur rubs or gallops Lungs: Clear to auscultation bilaterally. Normal effort Abdomen: Soft/nontender/nondistended. No hepatosplenomegaly Extremities: No clubbing/cyanosis. No edema Behavior: Appropriate, cooperative Results & Data Results & Data Vital Signs (Past 12 Hours) Vital Signs Temp Pulse Pulse Resp BP BP Pulse Ox 01/11/23 11:47 36.8 C 92 H 18 117/68 94 01/11/23 10:47 36.7 C 72 20 108/60 97 01/11/23 08:38 01/11/23 08:03 36.9 C 78 18 120/68 97 01/11/23 07:17 72 01/11/23 03:21 36.9 C 78 20 111/60 92 O2 Del Method O2 Flow Rate 01/11/23 11:47 Nasal Cannula 1 01/11/23 10:47 Nasal Cannula 1 01/11/23 08:38 Nasal Cannula 1 01/11/23 08:03 Nasal Cannula 1 01/11/23 07:17 01/11/23 03:21 Nasal Cannula 2 Laboratory Results Abnormal lab results 01/10/23 01/10/23 01/10/23 Range/Units 16:50 16:52 23:15 WBC 11.46 H (4.8-10.8) K/ul RBC 3.19 L (4.70-6.10) M/uL Hgb 9.5 L (14.0-18.0) g/dl Hct 29.3 L (42.0-52.0) % MCHC (32.0-36.0) g/dL Neut # (Auto) 7.42 H (1.40-6.50) K/uL [place] # (Auto) 1.24 H (0.11-0.59) K/uL Creatinine 2.09 H (0.6-1.4) mg/dl BUN/Creatinine Ratio 5.7 L (10-20) Glucose 144 H (70-99(Fasting)) mg/dl POC Glucose 155 H (70-99) mg/dl Calcium (8.6-10.3) mg/dl Total Bilirubin 1.4 H (0.2-1.0) mg/dl AST 47 H (13-39) U/L ALT 55 H (7-52) U/L Alkaline Phosphatase 134 H (34-104) U/L Troponin I High Sens 26.5 H (0-20) pg/ml Albumin (3.4-5.0) gm/dl Globulin 4.5 H (2.5-4.0) gm/dl Albumin/Globulin Ratio 0.8 L (0.9-2) Urine Appearance (Clear) Urine Protein (Negative) Urine Ketones (Negative) Urine Blood (Negative) Urine Bilirubin (Negative) Ur Leukocyte Esterase (Negative) Urine WBC (Auto) (0-5) /hpf Urine RBC (Auto) (0-4) /hpf U Epithel Cells (Auto) (0-5) /lpf Urine Bacteria (Auto) (Negative) Amorphous Sediment (None Prsent) 01/11/23 01/11/23 01/11/23 Range/Units 06:39 06:39 08:12 WBC (4.8-10.8) K/ul RBC 2.48 L (4.70-6.10) M/uL Hgb 7.4 L (14.0-18.0) g/dl Hct 23.5 L (42.0-52.0) % MCHC 31.5 L (32.0-36.0) g/dL Neut # (Auto) (1.40-6.50) K/uL [place] # (Auto) 1.08 H (0.11-0.59) K/uL Creatinine 3.53 H D (0.6-1.4) mg/dl BUN/Creatinine Ratio 6.2 L (10-20) Glucose 124 H (70-99(Fasting)) mg/dl POC Glucose 127 H (70-99) mg/dl Calcium 8.2 L (8.6-10.3) mg/dl Total Bilirubin (0.2-1.0) mg/dl AST 52 H (13-39) U/L ALT 56 H (7-52) U/L Alkaline Phosphatase 112 H (34-104) U/L Troponin I High Sens (0-20) pg/ml Albumin 2.9 L (3.4-5.0) gm/dl Globulin (2.5-4.0) gm/dl Albumin/Globulin Ratio 0.8 L (0.9-2) Urine Appearance (Clear) Urine Protein (Negative) Urine Ketones (Negative) Urine Blood (Negative) Urine Bilirubin (Negative) Ur Leukocyte Esterase (Negative) Urine WBC (Auto) (0-5) /hpf Urine RBC (Auto) (0-4) /hpf U Epithel Cells (Auto) (0-5) /lpf Urine Bacteria (Auto) (Negative) Amorphous Sediment (None Prsent) 01/11/23 01/11/23 Range/Units 12:10 Unknown WBC (4.8-10.8) K/ul RBC (4.70-6.10) M/uL Hgb (14.0-18.0) g/dl Hct (42.0-52.0) % MCHC (32.0-36.0) g/dL Neut # (Auto) (1.40-6.50) K/uL [place] # (Auto) (0.11-0.59) K/uL Creatinine (0.6-1.4) mg/dl BUN/Creatinine Ratio (10-20) Glucose (70-99(Fasting)) mg/dl POC Glucose 100 H (70-99) mg/dl Calcium (8.6-10.3) mg/dl Total Bilirubin (0.2-1.0) mg/dl AST (13-39) U/L ALT (7-52) U/L Alkaline Phosphatase (34-104) U/L Troponin I High Sens (0-20) pg/ml Albumin (3.4-5.0) gm/dl Globulin (2.5-4.0) gm/dl Albumin/Globulin Ratio (0.9-2) Urine Appearance Cloudy A (Clear) Urine Protein 2+ H (Negative) Urine Ketones Trace H (Negative) Urine Blood 3+ H (Negative) Urine Bilirubin 1+ H (Negative) Ur Leukocyte Esterase Trace H (Negative) Urine WBC (Auto) 5-10 H (0-5) /hpf Urine RBC (Auto) 10-30 H (0-4) /hpf U Epithel Cells (Auto) >30 H (0-5) /lpf Urine Bacteria (Auto) 2+ H (Negative) Amorphous Sediment Present A (None Prsent) Diagnostic Findings Chest X-Ray 01/10/23 18:53 XR chest 1V portable HISTORY: weak COMPARISON: Chest 01/26/2019. FINDINGS: There are low lung volumes. No pneumothorax. No pleural effusions. The cardiac silhouette is top normal in size. No evidence for pulmonary edema. No focal lung consolidations to suggest a pneumonia. A thoracic aortic stent graft is noted. A right jugular catheter terminates in the distal SVC. IMPRESSION: No acute process. ACT 112: Negative or not required by law. Electronically signed by: Alvarado Bo M.D. 01/11/2023 7:39 AM PG Care Time/CCT Total # of Minutes Spent Total Time Spent with Patient: Total time spent is greater than 50% in coordination of care (as documented) at patient's floor/unit and/or counseling patient: Coding Level of Care Code 28168 SUB INP/OBS CARE MIN Diagnoses Ambulatory dysfunction R26.2 Generalized weakness R53.1 ESRD (end stage renal disease) on dialysis N18.6; Z99.2 History of thoracic aortic aneurysm repair Z98.890; Z86.79 Renal cell carcinoma C64.9 GERD (gastroesophageal reflux disease) K21.9 Hypertension I10 Diabetes mellitus, type 2 E11.9 CAD (coronary artery disease) I25.10 Malignant neoplasm of prostate C61
[2023-01-11] MEDS: SIMVASTATIN 40 MG TAB PO SCH (20:06)
[2023-01-11] MEDS: ALBUTEROL HFA 8 GM INHALER INH PRN (20:42)
[2023-01-11] MEDS ORDERED: CALCIUM CARBONATE 500 MG CHEWABLE TAB PO PRN (20:43)
[2023-01-11] MEDS ORDERED: BENZONATATE 100 MG CAPSULE PO PRN (20:43)
[2023-01-12] MEDS: ACETAMINOPHEN 325 MG TAB PO PRN ×2 (04:26→12:28)
[2023-01-12] MEDS: ASPIRIN 81 MG ECTAB PO SCH (07:41)
[2023-01-12] MEDS: amLODIPine BESYLATE 5 MG TAB PO SCH (07:41)
[2023-01-12] MEDS: METOPROLOL TARTRATE 100 MG TAB PO SCH (07:41)
[2023-01-12] MEDS: CLOPIDOGREL BISULFATE 75 MG TAB PO SCH (07:41)
[2023-01-12] MEDS: HEPARIN SOD 5,000 UNIT/0.5 ML VIAL SQ SCH (07:41)
[2023-01-12] MEDS: FLUTICASONE/VILANTEROL 100/25MCG 14 PUFFS/INHALER INH SCH (07:41)
[2023-01-12] MEDS: POLYETHYLENE (MIRALAX) 17 GM PACK PO SCH ×2 (07:42→22:53)
[2023-01-12 08:38] LABS: Basophils # (auto) 0.04 K/uL (0.00-0.20); Basophils % (auto) 0.6 %; Eosinophils # (auto) 0.35 K/uL (0.00-0.50); Eosinophils % (auto) 5.5 %; Hemoglobin 7.6 g/dl (14.0-18.0); Immature Granulocytes # (auto) 0.02 K/uL (0.01-0.20); Immature Granulocytes % (auto) 0.3 %; Lymphocytes # (auto) 1.49 K/uL (1.20-3.40); Lymphocytes % (auto) 23.5 %; Mean Corpuscular Hemoglobin 30.2 pg (25.0-34.0); Mean Corpuscular Volume 91.3 fL (80.0-100.0); Mean Platelet Volume 11.1 fL (9.4-12.4); Monocytes # (auto) 0.79 K/uL (0.11-0.59); Monocytes % (auto) 12.5 %; Neutrophils # (auto) 3.65 K/uL (1.40-6.50); Neutrophils % (auto) 57.6 %; Platelet Count 154 K/uL (130-400); RDW Coefficient of Variation 12.4 % (11.5-14.5); RDW Standard Deviation 41.7 fL (36.4-46.3); Red Blood Count 2.52 M/uL (4.70-6.10); White Blood Count 6.34 K/ul (4.8-10.8)
[2023-01-12] MEDS ORDERED: METOPROLOL TARTRATE 1 MG/ML VIAL IV STA (08:43)
[2023-01-12 08:51] LABS: Albumin Globulin Ratio 0.7 (0.9-2); Albumin Level 2.8 gm/dl (3.4-5.0); BUN Creatinine Ratio 7.8 (10-20); Bilirubin,Total 0.8 mg/dl (0.2-1.0); Calcium 8.5 mg/dl (8.6-10.3); Creatinine Clr Calc Pharmacy 14.9 ml/min; Est GFR (African American) 13.5 ml/min; Est GFR (Non-African American) 11.7 ml/min; Globulin 4.1 gm/dl (2.5-4.0); Magnesium 1.7 mg/dl (1.7-2.4); Total Protein 6.9 gm/dl (6.0-8.3)
--- NOTE | 2023-01-12 08:54 | Electrocardiogram Report ---
Test Reason : Blood Pressure : / mmHG Vent. Rate : 071 BPM Atrial Rate : 071 BPM P-R Int : 170 ms QRS Dur : 096 ms QT Int : 378 ms P-R-T Axes : 063 -65 064 degrees QTc Int : 410 ms Normal sinus rhythm Left axis deviation Abnormal ECG When compared with ECG of 11-JAN-2023 05:48, Premature atrial complexes are no longer Present Criteria for Inferior-posterior infarct are no longer Present Confirmed by Camilo Arreaga ([id number]) on 01/12/2023 8:54:28 AM Referred By: REFERRED SELF Confirmed By:Michael Arreaga
[2023-01-12] MEDS ORDERED: EPOETIN ALFA 40,000 UNITS/ML VIAL IV SCH (09:00)
[2023-01-12] MEDS ORDERED: IRON SUCROSE 100 MG in SYRINGE 0 ML IV SCH (09:00)
[2023-01-12 09:04] LABS: RBC Morphology Unremarkable
[2023-01-12] MEDS: INSULIN ASPART PER UNIT CHARGE SC SCH ×3 (09:46→17:55)
--- NOTE | 2023-01-12 09:57 | Nephrology Progress Note ---
Date of Service January 12, 2023 Assessment & Plan (1) CAROLINA (acute kidney injury): Plan: Dialysis dependent CAROLINA. CAROLINA attributed to bilateral renal infarcts. Non- oliguric. Creatinine continues to rise between treatments. Baseline creatinine 1.4 mg/dL. Started HD 12/20. TDC functioning well. HD MWF. Orders for treatment today entered into the EHR and reviewed with director operating. Medications appropriate for kidney function. (2) Ambulatory dysfunction: Plan: PT/OT pending. (3) History of thoracic aortic aneurysm repair: Plan: s/p renal artery stenting. (4) Hypertension: Plan: BP acceptable. Volume status appropriate. Renal diet. Medications appropriate for kidney function. Avoid RAAS blockade. Admission and Anticipated Discharge Date Admission Date: January 10, 2023 Subjective No acute events overnight. Chest pain reported from coughing. Tenderness to palpation noted. No dyspnea. No fevers or chills. Non-productive cough. Review of Systems Review of Systems: All systems reviewed & are unremarkable except as noted in HPI & below Physical Exam Constitutional: well developed; no acute distress Eyes: no scleral abnormality and no corneal abnormality ENMT: Mouth: no oral mucosal abnormality and oral mucous membranes not dry Neck: normal visual inspection and trachea midline Respiratory: normal respiratory effort Auscultation: lungs clear to auscultation bilaterally Cardiovascular: Rate/Rhythm: regular rate Heart Sounds: normal S1 and normal S2 Extremities: no edema Musculoskeletal: Extremities: no cyanosis and no clubbing Skin: normal turgor; no lesions Neurologic: Motor/Sensory: no tremor and no asterixis Psychiatric: Orientation: alert and oriented x 3 Results & Data Vital Signs (Past 12 Hours) Vital Signs Temp Pulse Pulse Resp BP BP Pulse Ox 01/12/23 07:50 36.8 C 112 H 20 110/67 95 01/12/23 07:05 117 H 01/12/23 06:55 83 01/12/23 03:26 36.8 C 75 18 124/66 97 01/11/23 22:01 81 01/11/23 23:20 36.9 C 76 18 115/67 90 O2 Del Method O2 Flow Rate 01/12/23 07:50 Room Air 01/12/23 07:05 01/12/23 06:55 01/12/23 03:26 Nasal Cannula 1 01/11/23 22:01 10/31/23 23:20 Nasal Cannula 1 Laboratory Results Laboratory Results - last 24 hr 01/11/23 01/11/23 01/11/23 12:10 17:24 19:32 WBC RBC Hgb Hct MCV MCH MCHC RDW Std Deviation RDW Coeff of Gennaro Plt Count MPV Immature Gran % (Auto) Neut % (Auto) Lymph % (Auto) Cooke % (Auto) Eos % (Auto) Baso % (Auto) Neut # (Auto) Lymph # (Auto) Cooke # (Auto) Eos # (Auto) Baso # (Auto) Immature Gran # (Auto) RBC Morphology Sodium Potassium Chloride Carbon Dioxide Anion Gap BUN Creatinine Est Cr Clr Drug Dosing Est GFR ( Amer) Est GFR (Non-Af Amer) BUN/Creatinine Ratio Glucose POC Glucose 100 H 113 H 151 H Calcium Magnesium Total Bilirubin AST ALT Alkaline Phosphatase Total Protein Albumin Globulin Albumin/Globulin Ratio 01/12/23 01/12/23 01/12/23 07:35 07:35 08:13 WBC 6.34 RBC 2.52 L Hgb 7.6 L Hct 23.0 L MCV 91.3 MCH 30.2 MCHC 33.0 RDW Std Deviation 41.7 RDW Coeff of Gennaro 12.4 Plt Count 154 MPV 11.1 Immature Gran % (Auto) 0.3 Neut % (Auto) 57.6 Lymph % (Auto) 23.5 Cooke % (Auto) 12.5 Eos % (Auto) 5.5 Baso % (Auto) 0.6 Neut # (Auto) 3.65 Lymph # (Auto) 1.49 Cooke # (Auto) 0.79 H Eos # (Auto) 0.35 Baso # (Auto) 0.04 Immature Gran # (Auto) 0.02 RBC Morphology Unremarkable Sodium 137 Potassium 4.0 Chloride 100 Carbon Dioxide 28 Anion Gap 9 BUN 36 H Creatinine 4.62 H* D Est Cr Clr Drug Dosing 14.9 Est GFR ( Amer) 13.5 Est GFR (Non-Af Amer) 11.7 BUN/Creatinine Ratio 7.8 L Glucose 108 H POC Glucose 106 H Calcium 8.5 L Magnesium 1.7 Total Bilirubin 0.8 AST 151 H ALT 140 H Alkaline Phosphatase 202 H Total Protein 6.9 Albumin 2.8 L Globulin 4.1 H Albumin/Globulin Ratio 0.7 L PG Care Time/CCT Total # of Minutes Spent Total Time Spent with Patient: Total time spent is greater than 50% in coordination of care (as documented) at patient's floor/unit and/or counseling patient: Coding Level of Care Code 75458 SUB INP/OBS CARE 350MIN Diagnoses CAROLINA (acute kidney injury) N17.9 Ambulatory dysfunction R26.2 History of thoracic aortic aneurysm repair Z98.890; Z86.79 Hypertension I10
[2023-01-12] MEDS ORDERED: METOPROLOL TARTRATE 25 MG TAB PO ONE (10:00)
--- NOTE | 2023-01-12 12:06 | Electrocardiogram Report ---
Test Reason : Blood Pressure : / mmHG Vent. Rate : 114 BPM Atrial Rate : 214 BPM P-R Int : 000 ms QRS Dur : 092 ms QT Int : 328 ms P-R-T Axes : 000 -80 066 degrees QTc Int : 452 ms Atrial fibrillation with rapid ventricular response Left axis deviation Incomplete right bundle branch block Abnormal ECG When compared with ECG of 12-JAN-2023 05:35, Atrial fibrillation has replaced Sinus rhythm Vent. rate has increased BY 43 BPM Incomplete right bundle branch block is now Present Confirmed by Camilo Arreaga ([id number]) on 01/12/2023 12:05:57 PM Referred By: REFERRED SELF Confirmed By:Michael Arreaga
[2023-01-12] MEDS ORDERED: SODIUM CHLORIDE 0.9% 500 ML IV ONE (14:41)
--- NOTE | 2023-01-12 15:22 | XRay Report ---
SINGLE VIEW CHEST CLINICAL HISTORY: Dyspnea. Shaking. FINDINGS: An AP, portable, upright chest radiograph is compared to study dated 01/10/2023 and correla melissa with chest CT dated 09/18/2014. The examination is degraded by portable technique and apical lordot ic positioning. A right jugular jugular central venous catheter is unchanged in position. The heart i s enlarged. The pulmonary vasculature is noncongested. A stent graft is again seen in the thoracic ao rta. Emphysema and chronic interstitial thickening similar to previous. There is bibasilar scarring/a telectasis. The lungs and pleural spaces are otherwise clear. No pneumothorax is seen. The skeletal s tructures are osteopenic. The bony thorax is grossly intact. IMPRESSION: Cardiomegaly and emphysema with no acute cardiopulmonary abnormality identified. ACT 112: Negative or not required by law. Electronically signed by: Mando Alfonso M.D. 01/12/2023 3:21 PM
--- NOTE | 2023-01-12 15:33 | Hospitalist Progress Note ---
Date of Service January 12, 2023 Assessment & Plan (1) Ambulatory dysfunction: (2) Generalized weakness: (3) ESRD (end stage renal disease) on dialysis: (4) History of thoracic aortic aneurysm repair: (5) Renal cell carcinoma: (6) GERD (gastroesophageal reflux disease): (7) Hypertension: (8) Diabetes mellitus, type 2: (9) CAD (coronary artery disease): (10) Malignant neoplasm of prostate: Plan Ambulatory dysfunction/generalized weakness- Status post prolonged stay in recovery from thoracic aneurysm repair patient was recently at [facility] where he had a thoracic aneurysm repair done. The family was under the impression that he was being discharged to a rehab facility but it ended up being [facility]. The patient is too weak and the family is not able to take care of him at [facility] and thus was brought into the emergency room PT/OT on board Case management on board Recent thoracic aneurysm repair This morning patient went into rapid A-fib, then became shaky, short of breath with hypotension Spoke to daughter who stated that patient had vague symptoms like this when he for started having issues with thoracic aneurysm. it was not until later that he started complaining of back pain. He went [facility] ER and was then transferred to [facility] where he had several interventions done to repair his thoracic aortic aneurysm. The daughter states that he has had issues with shivering and nausea off-and-on Over the last several weeks. This is not new to her. I personally spoke to Dr. Jero Barrett , vascular surgeon, who agreed with getting a CT angio chest, abdomen, pelvis. Per Dr. Barrett, If there is a leakage in the endograft, the patient will need to be transferred back to [facility] immediately as this is not something that can be dealt with at [facility]. 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 Should not be on metformin even on discharge given ESRD Placed on Accu-Cheks with NovoLog SSI Disposition- will likely need inpatient rehab versus SNF Admission and Anticipated Discharge Date Admission Date: January 10, 2023 Subjective this morning, patient went into rapid atrial fibrillation. He was treated with his metoprolol dose along with an extra 25 mg of metoprolol tartrate. His rate was fairly controlled and he was then sent to dialysis. However he was sent back early from dialysis because he was not feeling well. He was shivering, short of breath, breathing irregularly, fatigued. Vital signs were stable. I personally saw the patient immediately after he got back to his room. during my encounter, his only complaint was nausea. It was covered in several blankets as he was cold and shivery. But he did not have any major complaints. I asked the nurse to keep a close eye on his vital signs and any new complaints. The nurse recently informed me that he was sweating profusely and was very shaky with of blood pressure of 87/57. Ordered a fluid bolus, Chest x-ray and blood cultures. I personally spoke to his daughter. Daughter raised questions about his recent thoracic aneurysm repair. She wanted that to be evaluated and requested a vascular surgeon to evaluate her. Vascular surgery consulted. Ordered a CT angio of the chest, abdomen and pelvis with premedication as he has a listed allergy to contrast. Review of Systems Review of Systems: All systems reviewed & are unremarkable except as noted in Subjective Physical Exam Physical Exam: general: Awake, conversant. Covered in multiple blankets. Complaining of nausea. Heart: S1, S2/regular rate and rhythm, no murmur rubs or gallops Lungs: Clear to auscultation bilaterally. Normal effort Abdomen: Soft/nontender/nondistended. No hepatosplenomegaly Extremities: No clubbing/cyanosis. No edema Behavior: Appropriate, cooperative Results & Data Results & Data Vital Signs (Past 12 Hours) Vital Signs Temp Pulse Pulse Resp BP BP BP 01/12/23 15:01 36.6 C 96 H 20 97/59 L 87/57 L 01/12/23 12:06 36.5 C 107/65 01/12/23 12:00 83 101/74 01/12/23 11:30 98 H 95/84 L 01/12/23 11:00 81 110/60 01/12/23 10:30 103 H 104/64 01/12/23 10:15 100 H 108/70 01/12/23 10:03 36.5 C 01/12/23 08:50 11/01/23 07:50 36.8 C 112 H 20 110/67 01/12/23 07:05 117 H 01/12/23 06:55 83 Pulse Ox O2 Del Method O2 Flow Rate 01/12/23 15:01 98 Nasal Cannula 3 01/12/23 12:06 01/12/23 12:00 01/12/23 11:30 01/12/23 11:00 01/12/23 10:30 01/12/23 10:15 01/12/23 10:03 01/12/23 08:50 Nasal Cannula 1 01/12/23 07:50 95 Room Air 01/12/23 07:05 01/12/23 06:55 Laboratory Results Abnormal lab results 01/11/23 01/11/23 01/12/23 Range/Units 17:24 19:32 07:35 RBC 2.52 L (4.70-6.10) M/uL Hgb 7.6 L (14.0-18.0) g/dl Hct 23.0 L (42.0-52.0) % Laurel # (Auto) 0.79 H (0.11-0.59) K/uL BUN (6-23) mg/dl Creatinine (0.6-1.4) mg/dl BUN/Creatinine Ratio (10-20) Glucose (70-99(Fasting)) mg/dl POC Glucose 113 H 151 H (70-99) mg/dl Calcium (8.6-10.3) mg/dl AST (13-39) U/L ALT (7-52) U/L Alkaline Phosphatase (34-104) U/L Albumin (3.4-5.0) gm/dl Globulin (2.5-4.0) gm/dl Albumin/Globulin Ratio (0.9-2) 01/12/23 01/12/23 01/12/23 Range/Units 07:35 08:13 12:03 RBC (4.70-6.10) M/uL Hgb (14.0-18.0) g/dl Hct (42.0-52.0) % [place]urel # (Auto) (0.11-0.59) K/uL BUN 36 H (6-23) mg/dl Creatinine 4.62 H* D (0.6-1.4) mg/dl BUN/Creatinine Ratio 7.8 L (10-20) Glucose 108 H (70-99(Fasting)) mg/dl POC Glucose 106 H 105 H (70-99) mg/dl Calcium 8.5 L (8.6-10.3) mg/dl AST 151 H (13-39) U/L ALT 140 H (7-52) U/L Alkaline Phosphatase 202 H (34-104) U/L Albumin 2.8 L (3.4-5.0) gm/dl Globulin 4.1 H (2.5-4.0) gm/dl Albumin/Globulin Ratio 0.7 L (0.9-2) 01/12/23 Range/Units 14:41 RBC (4.70-6.10) M/uL Hgb (14.0-18.0) g/dl Hct (42.0-52.0) % [place]urel # (Auto) (0.11-0.59) K/uL BUN (6-23) mg/dl Creatinine (0.6-1.4) mg/dl BUN/Creatinine Ratio (10-20) Glucose (70-99(Fasting)) mg/dl POC Glucose 177 H (70-99) mg/dl Calcium (8.6-10.3) mg/dl AST (13-39) U/L ALT (7-52) U/L Alkaline Phosphatase (34-104) U/L Albumin (3.4-5.0) gm/dl Globulin (2.5-4.0) gm/dl Albumin/Globulin Ratio (0.9-2) PG Care Time/CCT Total # of Minutes Spent Total Time Spent with Patient: Total time spent is greater than 50% in coordination of care (as documented) at patient's floor/unit and/or counseling patient: Coding Level of Care Code 67297 SUB INP/OBS CARE 2/35MIN Diagnoses Ambulatory dysfunction R26.2 Generalized weakness R53.1 ESRD (end stage renal disease) on dialysis N18.6; Z99.2 History of thoracic aortic aneurysm repair Z98.890; Z86.79 Renal cell carcinoma C64.9 GERD (gastroesophageal reflux disease) K21.9 Hypertension I10 Diabetes mellitus, type 2 E11.9 CAD (coronary artery disease) I25.10 Malignant neoplasm of prostate C61
[2023-01-12] MEDS ORDERED: diphenhydrAMINE 50 MG/ML VIAL IV ONE (15:41)
[2023-01-12] MEDS ORDERED: methylPREDNISolone 40 MG in SYRINGE 0 ML IV ONE (15:45)
--- NOTE | 2023-01-12 17:22 | Cardiology Consultation ---
Date of Consultation January 12, 2023 Assessment & Plan (1) History of thoracic aortic aneurysm repair: (2) Atrial fibrillation: (3) CAD (coronary artery disease): Plan The patient did not report any episodes of atrial fibrillation during his recent hospitalization. He is not appear to have had this diagnosis previously. He is certainly a risk of atrial fibrillation given his age and comorbidities. Also acutely ill and on dialysis. No murmur on examination to suggest severe valvular heart disease. He does not appear to be very symptomatic. That this point would seem reasonable attempt rate control in the hopes that he will convert spontaneously within next 24-48 hours. I think this is likely given the fact this is his 1st known episode. I think we will watch his blood pressure and heart rate over the course of the evening. If he does not convert and his blood pressure is better we can stop his amlodipine and start diltiazem. The bigger issue is simply his anticoagulation. He is certainly at risk for thromboembolic events based on his chads Vasc score. However, he will require dual anti-platelet therapy at least in the short term given his recent stenting. While an argument could be made for starting Eliquis 5 mg twice daily, think starting reduced dose Eliquis 2.5 mg twice daily with his dual anti-platelet therapy is reasonable. 2. Coronary artery disease: Remote history of PCI likely to the RCA in 2000. No current symptoms suggestive of coronary insufficiency or angina. Continue aggressive secondary prevention with anti-platelet agents and simvastatin 3. Thoracic aortic dissection: Status post recent stent procedure. No current symptoms of back pain. Good perfusion of both lower extremities. Normotensive History of Present Illness Reason for Consultation: Atrial fibrillation Requesting Physician: Jeannine Attending Physician: Xenia Paez MD History of Present Illness The patient is a 72-year-old gentleman with a history of abdominal aortic disease, coronary artery disease and renal failure who was brought to the hospital for placement due to significant weakness and difficulty ambulating. The patient states that approximately 15 years ago he underwent a stent procedure to his aorta. More recently he began to have some symptoms of back discomfort and was discovered to have an aortic dissection at the site of his prior stenting. He was transferred to [facility] where he underwent an additional percutaneous intervention via the femoral artery. During his hospitalization he suffered renal failure and was started on dialysis. The patient was discharged to a facility in [place] which could not provide the appropriate level of care and he was subsequently brought to our hospital placement. This morning patient was noted to have an elevated heart rate and on telemetry had converted to atrial fibrillation. He was not aware of the high heart rate or any irregularity in his heartbeat. He did not have any worsening chest pain or dyspnea. He has essentially been bed-bound with minimal ambulation recently. He was scheduled for dialysis today but discontinued dialysis early as he was not feeling well. This primarily involved a sense of shivering, diaphoresis and nausea. The patient states that prior to his recent hospitalization he was active individual. He did not exercise regularly but did not report limitations with activities such as dyspnea or chest pain. He has never been aware of any palpitations. He did not have frequent episodes of dizziness or lightheadedness. At the time of my interview the patient claimed to be weak but was feeling better with regard to diaphoresis and shivering. Allergies Allergy/AdvReac Type Severity Reaction Status Date / Time Iodinated Contrast Media Allergy Severe Anaphylaxis Verified 01/10/23 19:12 morphine Allergy Intermediate hives Verified 01/10/23 19:12 Penicillins Allergy Intermediate skin Verified 01/10/23 19:12 streaking tetanus toxoid, adsorbed Allergy Intermediate local skin Verified 01/10/23 19:12 irritation meperidine AdvReac Intermediate hallucinations, Verified 01/10/23 19:12 agitation Home Medications Medication Instructions Recorded Confirmed Type aspirin 81 mg tablet,delayed 81 mg PO QAM 01/18/19 01/10/23 History release (Nora Low Dose Aspirin) amlodipine 5 mg tablet 5 mg PO QAM 03/29/22 01/10/23 History metoprolol tartrate 100 mg tablet 100 mg PO BID 03/29/22 01/10/23 History simvastatin 40 mg tablet 40 mg PO HS 03/29/22 01/10/23 History metformin 500 mg tablet 500 mg PO BIDM 09/30/22 01/10/23 History acetaminophen 325 mg tablet 650 mg PO Q6H PRN Pain 01/10/23 01/10/23 History (Tylenol) albuterol sulfate 90 mcg/actuation 2 puff inhalation Q6H PRN Wheezing 01/10/23 01/10/23 History aerosol inhaler clopidogrel 75 mg tablet (Plavix) 75 mg PO QAM 01/10/23 01/10/23 History fluticasone furoate 100 1 inh inhalation QAM 01/10/23 01/10/23 History mcg-vilanterol 25 mcg/dose inhalation powder (Breo Ellipta) oxycodone 5 mg tablet 5 mg PO Q4H PRN Pain 01/10/23 01/10/23 History polyethylene glycol 3350 17 17 g PO BID 01/10/23 01/10/23 History gram/dose oral powder (Miralax) Patient History Medical History (Updated 01/12/23 @ 17:16 by Camilo Arreaga MD) Benign prostatic hyperplasia with urinary obstruction BPH (benign prostatic hyperplasia) CAD (coronary artery disease) stents x 2 (2000) Diabetes mellitus, type 2 diet controlled Elevated PSA GERD (gastroesophageal reflux disease) controlled History of abdominal aortic aneurysm (AAA) s/p repair + stent (2008) History of kidney cancer left kidney (2014) s/p tumor removal (s/p partial left nephrectomy) History of skin cancer face Hx of myocardial infarction 2000 - stents x 2 Hyperlipidemia Hypertension Malignant neoplasm of kidney excluding renal pelvis Renal mass, left Urethral stricture Surgical History (Updated 01/10/23 @ 20:24 by Triston Milligan M.D.) History of AAA (abdominal aortic aneurysm) repair + stent (2008) History of appendectomy History of kidney surgery Left partial robotic nephrectomy, hand assisted laparoscopy: 09/24/14: Grade I view, MAC#4, ETT 8 at [facility] Hx of abdominal surgery d/t peritonitis Hx of colonoscopy Hx of hernia repair Status post insertion of iliac artery stent (from trauma from endovascular procedure per records) Family History Brother Family history of diabetes mellitus Social History Smoking Status: Former smoker Tobacco Type: Cigarettes Second Hand Exposure: No; Do You Dip or Chew Tobacco: No; Hx Alcohol Use: No Hx Substance Use: No Preferred Language: Armenian Communication Ability: Effective Valet Service Attendant Required: No Beliefs That Will Affect Care: None Current Living Situation: Alone Current Living Situation Comment: single family home Feels Safe at Home: Yes Safety Concerns: Feels Safe At This Time Assistive Devices: Cane Review of Systems Review of Systems: Per HPI Physical Exam Physical Exam: The patient is alert and oriented. Mood and affect appeared normal. He answered all questions appropriately. Diaphoretic HEENT: Pupils are equal and reactive to light and accommodation. Extraocular movements are intact. The sclerae are anicteric. Neuro: Cranial nerves intact Chest: Dialysis catheter and the right subclavian region Lungs: Clear to auscultation bilaterally. He has good air movement without use of accessory muscles. No rales wheezes or rhonchi. Cardiac: Heart demonstrates an irregular rhythm and rapid rate. Normal S1 and S2. No murmurs on examination. Pulses: The patient has palpable radial pulses bilaterally that are equal in intensity Extremities: There was no evidence of hypoperfusion. There is no cyanosis or clubbing. There is no edema. Palpable dorsalis pedis pulses bilaterally Skin: I did not appreciate any rashes on examination today. Results & Data Vital Signs (Past 12 Hours) Vital Signs Temp Pulse Pulse Resp BP BP BP 01/12/23 16:42 112 H 01/12/23 15:01 36.6 C 96 H 20 97/59 L 87/57 L 01/12/23 12:06 36.5 C 107/65 01/12/23 12:00 83 101/74 01/12/23 11:30 98 H 95/84 L 01/12/23 11:00 81 110/60 01/12/23 10:30 103 H 104/64 01/12/23 10:15 100 H 108/70 01/12/23 10:03 36.5 C 01/12/23 08:50 01/12/23 07:50 36.8 C 112 H 20 110/67 01/12/23 07:05 117 H 01/12/23 06:55 83 Pulse Ox O2 Del Method O2 Flow Rate 01/12/23 16:42 01/12/23 15:01 98 Nasal Cannula 3 01/12/23 12:06 01/12/23 12:00 01/12/23 11:30 01/12/23 11:00 01/12/23 10:30 01/12/23 10:15 01/12/23 10:03 01/12/23 08:50 Nasal Cannula 1 01/12/23 07:50 95 Room Air 01/12/23 07:05 01/12/23 06:55 Laboratory Results Abnormal Lab Results 10/31/23 10/31/23 11/01/23 17:24 19:32 07:35 WBC 6.34 RBC 2.52 L Hgb 7.6 L Hct 23.0 L MCV 91.3 MCH 30.2 MCHC 33.0 RDW Std Deviation 41.7 RDW Coeff of Gennaro 12.4 Plt Count 154 MPV 11.1 Immature Gran % (Auto) 0.3 Neut % (Auto) 57.6 Lymph % (Auto) 23.5 [place] % (Auto) 12.5 Eos % (Auto) 5.5 Baso % (Auto) 0.6 Neut # (Auto) 3.65 Lymph # (Auto) 1.49 Larimer # (Auto) 0.79 H Eos # (Auto) 0.35 Baso # (Auto) 0.04 Immature Gran # (Auto) 0.02 RBC Morphology Unremarkable Sodium Potassium Chloride Carbon Dioxide Anion Gap BUN Creatinine Est Cr Clr Drug Dosing Est GFR ( Amer) Est GFR (Non-Af Amer) BUN/Creatinine Ratio Glucose POC Glucose 113 H 151 H Calcium Magnesium Total Bilirubin AST ALT Alkaline Phosphatase Total Protein Albumin Globulin Albumin/Globulin Ratio 01/12/23 01/12/23 01/12/23 07:35 08:13 12:03 WBC RBC Hgb Hct MCV MCH MCHC RDW Std Deviation RDW Coeff of Gennaro Plt Count MPV Immature Gran % (Auto) Neut % (Auto) Lymph % (Auto) [place] % (Auto) Eos % (Auto) Baso % (Auto) Neut # (Auto) Lymph # (Auto) Lar[place] # (Auto) Eos # (Auto) Baso # (Auto) Immature Gran # (Auto) RBC Morphology Sodium 137 Potassium 4.0 Chloride 100 Carbon Dioxide 28 Anion Gap 9 BUN 36 H Creatinine 4.62 H* D Est Cr Clr Drug Dosing 14.9 Est GFR ( Amer) 13.5 Est GFR (Non-Af Amer) 11.7 BUN/Creatinine Ratio 7.8 L Glucose 108 H POC Glucose 106 H 105 H Calcium 8.5 L Magnesium 1.7 Total Bilirubin 0.8 AST 151 H ALT 140 H Alkaline Phosphatase 202 H Total Protein 6.9 Albumin 2.8 L Globulin 4.1 H Albumin/Globulin Ratio 0.7 L 01/12/23 14:41 WBC RBC Hgb Hct MCV MCH MCHC RDW Std Deviation RDW Coeff of Gennaro Plt Count MPV Immature Gran % (Auto) Neut % (Auto) Lymph % (Auto) [place] % (Auto) Eos % (Auto) Baso % (Auto) Neut # (Auto) Lymph # (Auto) [place] # (Auto) Eos # (Auto) Baso # (Auto) Immature Gran # (Auto) RBC Morphology Sodium Potassium Chloride Carbon Dioxide Anion Gap BUN Creatinine Est Cr Clr Drug Dosing Est GFR ( Amer) Est GFR (Non-Af Amer) BUN/Creatinine Ratio Glucose POC Glucose 177 H Calcium Magnesium Total Bilirubin AST ALT Alkaline Phosphatase Total Protein Albumin Globulin Albumin/Globulin Ratio Diagnostic Findings Chest x-ray obtained 01/12/2023: Cardiomegaly and emphysema. No acute cardiopu lmonary process ECG Additional Comments: EKG obtained at 7:14 a.m. today revealed atrial fibrillation rapid ventricular response PG Care Time/CCT Total # of Minutes Spent Total Time Spent with Patient: Total time spent is greater than 50% in coordination of care (as documented) at patient's floor/unit and/or counseling patient: Coding Level of Care Code 46659 INT INP/OBS CARE 3/75MIN Diagnoses History of thoracic aortic aneurysm repair Z98.890; Z86.79 Atrial fibrillation I48.91 CAD (coronary artery disease) I25.10
[2023-01-12] MEDS ORDERED: RAPID SEQUENCE INDUCTION BAG ONE (20:16)
[2023-01-12] MEDS ORDERED: OPTIRAY 320 500ml IV ONE (20:22)
--- NOTE | 2023-01-12 20:32 | Procedure Note ---
Procedure Note Date of Service January 12, 2023 Note Patient was a code purple in the CT just outside the emergency department and was an inpatient from upstairs receiving a CAT scan. Received IV dye. Evidently been premedicated for it. Patient became minimally responsive and CT code was called. Initially evaluated due to proximity and hospitalist team and ICU REHABILITATION DIRECTOR was bedside. Patient was bagged and awakened some but appeared somewhat ashen. Was initially answering some questions. Hospitalist and ICU team feel comfortable caring for the patient and return to the emergency department. Approximately 5 minutes later the patient was seen being wheeled into room B1 here in the emergency department. Hospitalist and ICU team stated the patient to decline required intubation and they did not feel that he could make it to the ICU for this to be done and that for access to appropriate resources they stopped here. Patient was periarrest with hypoxia and hypotension blood pressure in the 60s. Not responsive. Being bagged with a pulse ox in the 70s nasopharyngeal airway in place. Patient was given an amp of bicarb as well as 100 mcg of IV epinephrine for this under my direction. Patient blood pressure improved and his oxygen level improved. Proceeded based on his full CODE STATUS with intubation for airway protection given his respiratory failure and critical status. Completed without other obvious complication. Patient left in the care of the hospitalist and ICU team with further care in the ICU. ED Intubation Indication hypoxia, hypotension, respiratory failure, airway protection The patient was on 100% oxygen via BVM prior to the procedure. Suction, airway equipment, RSI drugs, respiratory equipment, and appropriate personnel were prepared prior to the initiation of the procedure. A time out was taken. Induction was performed with 24mg of etomidate and 80mg of rocuronium. After observing the clinical benefit of the medications, the airway was easily visualized utilizing a S3 glidescope. A 7.0 size ETT tube was placed atraumatically to 23 cm using standard technique. The cuff inflated without signs of malfunction. There were bilateral breath sounds, positive colormetric change, no gastric sounds, a good capnography waveform, and post procedure pulse oximetry was 99%. There were no complications. Coding
[2023-01-12] MEDS ORDERED: NOREPINEPHRINE/D5W 4 MG/250 ML IV ONE (20:48)
[2023-01-12] MEDS ORDERED: fentaNYL citrate 2,500 MCG/250 ML BAG IV ONE (20:48)
[2023-01-12] MEDS ORDERED: STAT IV Infusion **Titration per Protocol STA ×3 (20:52→23:22)
[2023-01-12] MEDS ORDERED: EPINEPHrine/NSS 4 MG/254 ML BAG IV SCH (21:00)
--- NOTE | 2023-01-12 21:12 | CT Scan Report ---
Exam(s): CTA CHEST W/WO Contrast IV Amt: 118 ml opti 320 EXAM: CT Angiography Chest Without and With Intravenous Contrast CLINICAL HISTORY: Reason for exam: Recent thoracic aneurysm repair, now hypotensive. TECHNIQUE: Axial computed tomographic angiography images of the chest without and with intravenous contrast. CTDI is 37.99 mGy and DLP is 4063.15 mGy-cm. Automated exposure control was utilized for the study. A dose lowering technique was utilized adhering to the principles of ALARA. MIP reconstructed images were created and reviewed. CONTRAST: Patient received 118 ml opti 320 of IV contrast COMPARISON: Chest x-ray from January 12, 2023 FINDINGS: Pulmonary arteries: Unremarkable. No pulmonary embolism. Aorta: Previous stent grafting of the distal aortic arch and descending thoracic aorta. The graft is widely patent. The distal thoracic aorta demonstrates a sac measuring up to 4.7 cm. No endograft leakage is seen through the main portion of the graft. There is a trace amount of contrast tracking adjacent to the distal 2 cm of the thoracic graft at the level of the diaphragm. No thoracic aortic aneurysm. Great vessels of aortic arch: Trace amount of calcified plaque at the origin of the left subclavian artery without stenosis. Lungs: Small amount of linear scarring or atelectasis in the right mid to upper lung. Mild emphysematous changes are present. No mass. Pleural space: Unremarkable. No significant effusion. No pneumothorax. Heart: The heart is borderline enlarged. Severe coronary calcification is present. No pericardial effusion. No evidence of RV dysfunction. Thyroid: 2.3 cm right thyroid nodule inferiorly. Bones/joints: Mild multilevel degenerative change are seen throughout the spine. No acute fracture or subluxation is seen. Soft tissues: Unremarkable. Lymph nodes: Unremarkable. No enlarged lymph nodes. IMPRESSION: 1. Previous stent grafting of the distal aortic arch and descending thoracic aorta. The graft is widely patent. The distal thoracic aorta demonstrates a sac measuring up to 4.7 cm. No endograft leakage is seen through the main portion of the graft. There is a trace amount of contrast tracking adjacent to the distal 2 cm of the thoracic graft at the level of the diaphragm. Please see CT angiogram of the abdomen and pelvis. 2. Small amount of linear scarring or atelectasis in the right mid to upper lung. Mild emphysematous changes are present. Electronically signed by: Triston Ricketts MD 01/12/23 21:11 PM
[2023-01-12 21:22] LABS: iSTAT Allen Test Pass; iSTAT Art Bld Gas pCO2 Correct 49 mmHg (35-46); iSTAT Art Bld Gas pH Corrected 7.337 (7.35-7.45); iSTAT Arterial Blood Gas HCO3 27 meg/L (19-24); iSTAT Arterial Blood Gas pCO2 51 mmHg (35-46); iSTAT Arterial Blood Gas pH 7.32 (7.35-7.45); iSTAT Arterial Blood Gas pO2 357 mmHg (80-95); iSTAT Arterial Blood Gas pO2 C 352; iSTAT Carbon Dioxide 28 mmol/L (24-31); iSTAT FiO2 100 %; iSTAT Hematocrit 24 % (42-52); iSTAT Hemoglobin 8.2 g/dl (14.0-18.0); iSTAT Potassium 3.9 mmol/L (3.3-5.0); iSTAT Site L Radial; iSTAT Sodium 138 mmol/L (135-144)
--- NOTE | 2023-01-12 21:23 | CT Scan Report ---
Exam(s): CTA ABDOMEN + PELVIS W/WO Contrast IV Amt: 118 ml opti 320 EXAM: CT Angiography Abdomen and Pelvis Without and With Intravenous Contrast CLINICAL HISTORY: Reason for exam: recent thoracic aneurysm repair. TECHNIQUE: Axial computed tomographic angiography images of the abdomen and pelvis without and with intravenous contrast. CTDI is 37.99 mGy and DLP is 4063. 15 mGy-cm. Automated exposure control was utilized for the study. A dose lowering technique was utilized adhering to the principles of ALARA. MIP reconstructed images were created and reviewed. CONTRAST: Patient received 118 ml opti 320 of IV contrast COMPARISON: No relevant prior studies available. FINDINGS: VASCULATURE: Aorta: There is aneurysmal dilation of the distal thoracic and upper abdominal aorta measuring up to 4.5 cm in diameter. The thoracic graft terminates at the level of the diaphragm. There is a trace amount of contrast tracking along the inferior margin of the thoracic graft. There is an abdominal aortic stent graft in place with bilateral renal small goals. The grafts and stents are widely patent. The residual aneurysm sac in the infrarenal portion measures 3 cm. No endograft leakage or extravasation is seen. No dissection. Celiac trunk and mesenteric arteries: No acute findings. No occlusion or significant stenosis. Renal arteries: No acute findings. No occlusion or significant stenosis. Iliac arteries: There is a left external iliac artery stent which is widely patent. No occlusion or significant stenosis. 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 Calcified plaque causing 30% stenosis of the right common femoral artery. Lung bases: Unremarkable. No mass. No consolidation. ABDOMEN: Liver: There is mild fatty infiltration of the liver. No focal liver lesion is seen. Gallbladder and bile ducts: Unremarkable. No calcified stones. No ductal dilation. Pancreas: Unremarkable. No ductal dilation. No mass. Spleen: Unremarkable. No splenomegaly. Adrenals: Unremarkable. No mass. Kidneys and ureters: There are several simple cysts measuring up to 3. 1 cm in the lower pole the right kidney. No hydronephrosis or ureterolithiasis is seen. Stomach and bowel: There is diverticulosis throughout the colon. No evidence of acute diverticulitis. No acute inflammatory changes are seen involving the bowel. No obstruction. PELVIS: Appendix: No findings to suggest acute appendicitis. Bladder: Unremarkable. No stones. No mass. Reproductive: Unremarkable as visualized. ABDOMEN and PELVIS: Intraperitoneal space: Unremarkable. No significant fluid collection. No free air. Bones/joints: Mild to moderate spine. No acute fracture or subluxation is seen. Soft tissues: Unremarkable. Lymph nodes: Unremarkable. No enlarged lymph nodes. IMPRESSION: 1. 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 2. 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 The thoracic graft terminates at the level of the diaphragm. There is a trace amount of contrast tracking along the inferior margin of the thoracic graft. There is an abdominal aortic stent graft in place with bilateral renal small goals. The grafts and stents are widely patent. The residual aneurysm sac in the infrarenal portion measures 3 cm. No endograft leakage or extravasation is seen. 3. There is diverticulosis throughout the colon. No evidence of acute diverticulitis. No acute inflammatory changes are seen involving the bowel. Electronically signed by: Triston Ricketts MD 01/12/23 21:22 PM
[2023-01-12 21:25] LABS: Basophils # (auto) 0.03 K/uL (0.00-0.20); Basophils % (auto) 0.3 %; Eosinophils # (auto) 0.25 K/uL (0.00-0.50); Eosinophils % (auto) 2.4 %; Hematocrit (blood only) 26.1 % (42.0-52.0); Hemoglobin 8.5 g/dl (14.0-18.0); Immature Granulocytes # (auto) 0.22 K/uL (0.01-0.20); Immature Granulocytes % (auto) 2.1 %; Lymphocytes # (auto) 3.62 K/uL (1.20-3.40); Lymphocytes % (auto) 35.1 %; Mean Corpuscular Hemoglobin 30.6 pg (25.0-34.0); Mean Corpuscular Hgb Conc 32.6 g/dL (32.0-36.0); Mean Corpuscular Volume 93.9 fL (80.0-100.0); Mean Platelet Volume 10.9 fL (9.4-12.4); Monocytes # (auto) 0.47 K/uL (0.11-0.59); Monocytes % (auto) 4.6 %; Neutrophils # (auto) 5.71 K/uL (1.40-6.50); Neutrophils % (auto) 55.5 %; Platelet Count 222 K/uL (130-400); RDW Coefficient of Variation 12.6 % (11.5-14.5); RDW Standard Deviation 43.4 fL (36.4-46.3); Red Blood Count 2.78 M/uL (4.70-6.10)
[2023-01-12 21:29] LABS: INR 1.1 (0.9-1.1); Prothrombin Time 11.7 Seconds (9.0-12.0)
[2023-01-12 21:37] LABS: Albumin Level 2.7 gm/dl (3.4-5.0); BUN Creatinine Ratio 6.3 (10-20); Bilirubin Direct 0.3 mg/dl (0-0.2); Bilirubin,Total 0.6 mg/dl (0.2-1.0); Calcium 10.3 mg/dl (8.6-10.3); Creatinine Clr Calc Pharmacy 20.5 ml/min; Est GFR (African American) 19.9 ml/min; Est GFR (Non-African American) 17.2 ml/min; Total Protein 6.5 gm/dl (6.0-8.3)
[2023-01-12 21:45] LABS: Troponin I High Sensitivity 20.2 pg/ml (0-20)
--- NOTE | 2023-01-12 21:49 | Procedure Note ---
Procedure Note Date of Service January 12, 2023 Note Femoral CENTRAL LINE PROCEDURE NOTE: Procedure: FEMORAL Central Line Placement Proceduralist: Lamberto LAGOS ([facility] Attending: Dr. Escobar Indication: Central Drug Administration, Poor Venous Access, Multiple Lab Draws Necessary, etc. Anesthesia: [x]None Consent was implied as patient is full code and advanced access needed for vasoactive medications post cardiac and respiratory arrest. This line was emergently placed under "clean approach" Patients LEFT GROIN was cleansed and draped in the typical sterile fashion using Chloraprep. The Femoral Vein and Femoral Artery were identified using ultrasound. The After scouting the vessel, the FEMORAL vein was cannulated under direct ultrasound guidance using an introducer needle on a syringe. Good venous blood return was maintained prior to removal of syringe from introducer needle. Using Seldinger Technique, a guide wire was advanced through the introducer needle without resistance. The introducer needle was removed and ultrasound images were obtained of the guide wire within theFEMORAL Vein, images were not saved to the permanent record as this was emergent. A small incision was made in penetrating fashion at the guide wire insertion site utilizing an 11 blade scalpel. The dilator was advanced to the vessel without resistance. The dilator was exchanged for the triple lumen catheter which was advanced into the vessel without resistance. The guide wire was removed intact from the catheter without issue. Claves were placed on each catheter tip with confirmation of good blood flow from each lumen. Each port was easily flushed with sterile saline. The catheter was placed at 20 cm and sutured in place. BioPatch was applied to the catheter and a sterile Tegaderm dressing was applied over the catheter with careful attention to cleanliness. Patient tolerated procedure well. No immediate complications were met. Number of attempts x1 Ultrasound Guidance: Artery AND Vein visualized: YES Compressible Vein: YES Guidewire or Short Catheter seen in vein prior to dilation: YES Coding CPT Codes Tubes, Drains, and Vasc Access - Tubes, Drains, and Vasc Access: [id number] Insertion Of Non-tunneled Catheter Age 4 Yrs> ([id number]) [facility] [place] [facility] Procedure Codes (Charges) Tubes, Drains, and Vasc Access Procedure 1: Tubes, Drains, and Vasc Access: [id number] Insertion Of Non-tunneled Catheter Age 4 Yrs>
--- NOTE | 2023-01-12 21:49 | Critical Care Consultation ---
Date of Consultation January 12, 2023 Assessment & Plan (1) Cardiac arrest: (2) Respiratory arrest: (3) Required emergency intubation: (4) CAROLINA (acute kidney injury): (5) Ambulatory dysfunction: (6) History of thoracic aortic aneurysm repair: (7) Hypertension: (8) Renal cell carcinoma: (9) GERD (gastroesophageal reflux disease): (10) Diabetes mellitus, type 2: (11) CAD (coronary artery disease): Plan Reason Critically Ill: 72 YOM admitted for rehab placement following prolonged admission for thoracic aneurysm repair at [facility] that was complicated by renal infarcts and dialysis dependant CAROLINA. He suffered a respiratory arrest x2 this evening requiring intubation and mechanical ventilation, following intubation and transfer he suffered from bradycardic arrest requiring CPR and epinephrine pushes and infusion. Neuro - Concern for anoxic brain injury, ambulatory dysfuncition CAM ICU: MARY B[facility] - Patient with reactive pupils and delayed wake up following induction for RSI - Head CT negative for large vessel occlusion or hemorrhage at this time - 2319 he is now with facial grimace, moving of all extremities, coughing and overbreathing ventilator- His TOF is 4/4 - Fentanyl for sedation - ambulatory dysfunction is likely deconditioning following prolonged hospital stay - Following CPR for bradycardic arrest- normothermia goal - follow neurological exams- currently improving - light sedation with fentanyl for goal WARREN -1 - too early at this time for prognostication- if remains encephalopathic with deficits- MRI and EEG Cardiac - Cardiac arrest, bradycardia, shock, PAF, s/p thoracic aneurysm repair - Unsure of inciting event, however was again followed by contrast administration- however would expect him to be tachycardic with anaphylaxis- this was not observed - ECG without acute STEMI- but with RBB and lateral t wave changes - ECHO in am - Appreciate Cardiology and Dr. Davies's review following arrest - Likely secondary to hypercarbia and hypoxia- however this was corrected and still with episode of bradycardia - Epinephrine infusion and Levophed infusion for hemodynamic support- will attempt to wean of EPI and transition to Dopamine if further HR support is needed - Shock undifferentiated at this time- bedside POCUS with good LV squeeze- although following epi push and return of ROSC - ECHO in am - Can't rule out sepsis- blood cultures x2 and will initiate broad spectrum abx with Zosyn and Daptomycin - MRSA negative and CXR is without opacities to suggest a strong suspicion for pulmonary source - Trend lactate - PAF this morning- if re-occurs will initiate amiodarone infusion or esmolol as hemodynamics allow Respiratory -Hypoxic Respiratory arrest - with agonal breathing and spo2 in the 70s with check - had re-occurrence of respiratory arrest that required emergent intubation - Has responded well to oxygen delivery- doubting PE - CTA of chest was performed while looking at his aneurysm repair- no PE interpreted - is also without opacification on CT of chest - ARDsnet ventilation strategy- Low PEEP, High FIO2 Algorithm GI - GERD - NPO while on vasopressors - PPI RENAL/LYTES - CAROLINA dialysis dependant, - Continue with dialysis per nephrology - contrast administered this evening- avoid further contrasted studies if able - Renal dose medications - Acosta to gravity - unsure at this time how much urine patient makes ENDO - DMII - ICU hyperglycemic protocol - goal <180mg/dl - BG checks q6 hours HEME - No acute needs - HGB up trended- no evidence of acute blood loss or endo leak ID - shock unspecified as above - Afebrile, no leukocytosis with am labs - however can't exclude sepsis at this time - blood cultures x2 - Zosyn and Daptomycin- aware of skin streaking with PCN- will observe closely LINES/IV ACCESS - CVL, [place], ETT, OGT, Acosta Continue use of these lines- femoral central line was placed "clean" remove or change out when feasible DVT PROPHYLAXIS - SCDs, ASA/Plavix, Heparin subq DISPO: ICU while intubated and requiring vasopressors- Family updated via phone as well as at bedside with son and daughter of patient. I have personally spent 70 minutes of critical care time in the direct management of this patient. This is a life/limb threatening event. This includes time spent evaluating patient, direct bedside care, chart review, placing orders, interpretation of diagnostic studies, discussion with consultants, pawan ent, and family members, as well as other required patient management activities. This time is exclusive of all separately billable procedures, and teaching time and separate from and in addition to any other critical care service time. Thank you for allowing us to participate in the care of this patient. Please refer to my attending physician's documentation for any further recommendations. History of Present Illness Attending Physician: Xenia Paez MD History of Present Illness 72 YOM cassy admitted on 01/10/23 for ambulatory dysfunction following prolonged stay at [facility] for thoracic aneurysm repair which was complicated by ARF requiring Dialysis. Patient has medical history for HTN, DM, CAD with stent to RCA 2000. Patient was noted to be in afib this morning and was administered metoprolol 5mg IV and oral metoprolol 25mg PO BID, he also underwent dialysis today via his left scl PermCath, for which therapy was stopped early secondary to patient feeling "miserable and nauseated. He had UF of 800cc. With his episode this morning of atrial fib, it appears he became short of breath and was associated with hypotension and possibly complaining of back pain. Following the administration of metoprolol, appears he went back into NSR. Secondary to the above symptoms, the patient underwent a CTA of the chest/abdomen/pelvis this evening, he was pre-treated with Benadryl and Methypred. While he was at CT scan ~1999 the patient underwent a period of apneic breathing, un-responsive, was very diaphoretic and unarousable. A CODE PURPLE was called. During this, the patient was being supplemented with ambu-bag ventilation and oxygenation and maintained an pulse and rhythm- following a few well delivered BVM breaths the patient woke up and was moving his right arm and leg, and had spontaneous respirations. He was not real coherent or following commands. The patient was then being prepared to transfer to the ICU where once again he became unresponsive agonal breathing, decision was at that time to place nasopharyngeal airway and continue to support breaths, however would require intubation emergently. As we were not safe to transport to ICU and the [facility] was the closest for full support of medical personnel and equipment, the patient was taken to B1 and intubated. Prior to intubation, pulse became weaker and required 1ml of push dose cardiac epinephrine and amp of HCO3, these both resulted in good response to BP, HR, and SPO2. He was intubated by [facility] physician Dr. Milligan (see separate note) x1 attempt without complications, following induction with Rocuronium 80mg and Etomidate 24mg IV. He was easily bagged and ventilated, without wheezing or stridor. As he was stabilized with hemodynamics and airway with ETcO2 confirmation and auscultation, the patient was then transferred to ICU for continued ongoing resuscitation. On the way to ICU the patient became bradycardic with loss of pulse right outside the ICU doors, he was placed in ICU 110 and was immediately given 1mg of cardiac epinephrine and CPR was started. Patient also received another amp of NAHCo3. Following CPR for 2 minutes, the patient had return of ROSC from bradycardic arrest. He was initiated on Levophed infusion with epinephrine on standby. Bedside ultrasound revealed good contractility without pericardial effusion as well as perfusion on Doppler of femoral artery. A central line was placed emergently to his left groin using ultrasound under "clean" environment. This was placed x1 without difficulty. An arterial line was placed as well. CXR was completed and another ECG was completed. ABG was resulted with hyp eroxia, normal CO2 and PH. Preparations for head CT were underway. Patient once again with bradycardia to the 50s which appeared as just sinus bradycardia as well as hypotension, he was initiated on epinephrine infusion which increased HR to 80-90 and remains with Levophed for hypotension. Will obtain head CT, obtain blood cultures x2, repeat labs to include lactate and repeat ECG. ECG resulted with RBB appearance with inverted Twaves in lateral leads, however without STEMI and HsCTNI at 23. Did discuss with Cardiology information clerk brokerage and confirms no STEMI or appearance of ischemia on current a vailable ECGs. Continue with supportive care and if needed for continued bradycardia to contact them. CODE: FULL Allergies Allergy/AdvReac Type Severity Reaction Status Date / Time Iodinated Contrast Media Allergy Severe Anaphylaxis Verified 01/12/23 20:31 morphine Allergy Intermediate hives Verified 01/10/23 19:12 Penicillins Allergy Intermediate skin Verified 01/10/23 19:12 streaking tetanus toxoid, adsorbed Allergy Intermediate local skin Verified 01/10/23 19:12 irritation meperidine AdvReac Intermediate hallucinations, Verified 01/10/23 19:12 agitation Home Medications Medication Instructions Recorded Confirmed Type aspirin 81 mg tablet,delayed 81 mg PO QAM 01/18/19 01/10/23 History release (Nora Low Dose Aspirin) amlodipine 5 mg tablet 5 mg PO QAM 03/29/22 01/10/23 History metoprolol tartrate 100 mg tablet 100 mg PO BID 03/29/22 01/10/23 History simvastatin 40 mg tablet 40 mg PO HS 03/29/22 01/10/23 History metformin 500 mg tablet 500 mg PO BIDM 09/30/22 01/10/23 History acetaminophen 325 mg tablet 650 mg PO Q6H PRN Pain 01/10/23 01/10/23 History (Tylenol) albuterol sulfate 90 mcg/actuation 2 puff inhalation Q6H PRN Wheezing 01/10/23 01/10/23 History aerosol inhaler clopidogrel 75 mg tablet (Plavix) 75 mg PO QAM 01/10/23 01/10/23 History fluticasone furoate 100 1 inh inhalation QAM 01/10/23 01/10/23 History mcg-vilanterol 25 mcg/dose inhalation powder (Breo Ellipta) oxycodone 5 mg tablet 5 mg PO Q4H PRN Pain 01/10/23 01/10/23 History polyethylene glycol 3350 17 17 g PO BID 01/10/23 01/10/23 History gram/dose oral powder (Miralax) Patient History Medical History Benign prostatic hyperplasia with urinary obstruction Elevated PSA Malignant neoplasm of kidney excluding renal pelvis Urethral stricture History of abdominal aortic aneurysm (AAA) s/p repair + stent (2008) CAD (coronary artery disease) stents x 2 (2000) History of kidney cancer left kidney (2014) s/p tumor removal (s/p partial left nephrectomy) BPH (benign prostatic hyperplasia) GERD (gastroesophageal reflux disease) controlled Diabetes mellitus, type 2 diet controlled History of skin cancer face Hx of myocardial infarction 2000 - stents x 2 Hypertension Hyperlipidemia Renal mass, left Surgical History Status post insertion of iliac artery stent (from trauma from endovascular procedure per records) Hx of colonoscopy History of AAA (abdominal aortic aneurysm) repair + stent (2008) Hx of hernia repair Hx of abdominal surgery d/t peritonitis History of appendectomy History of kidney surgery Left partial robotic nephrectomy, hand assisted laparoscopy: 09/24/14: Grade I view, MAC#4, ETT 8 at [facility] Family History Brother Family history of diabetes mellitus Social History Smoking Status: Former smoker Tobacco Type: Cigarettes Second Hand Exposure: No; Do You Dip or Chew Tobacco: No; Hx Alcohol Use: No Hx Substance Use: No Preferred Language: Khmer Communication Ability: Effective Associate Director Of Biostatistics Required: No Beliefs That Will Affect Care: None Current Living Situation: Alone Current Living Situation Comment: single family home Feels Safe at Home: Yes Assistive Devices: Cane Review of Systems Review of Systems: REVIEW OF SYSTEMS: Unable to be performed. Physical Exam Physical Exam: PHYSICAL EXAM: General: unresponsive following intubation Neuro: PEERLA, intubated and sedated, no purposeful movement or overbreathing vent at this time Chest: equal rise and fall of the chest, lungs decreased in bases no wheeze, PIPS normal Cardiac: sinus oscar to NSR, telemetry reviewed, skin warm dry, cap refill <3 seconds, peripheral pulses +2 no JVD, no murmur, GI: NABS x 4 quadrants, soft, nontender to palpation, no rebound, guarding or tenderness : Acosta to gravity Skin: no rash or erythema Results & Data Results & Data Vital Signs (Past 12 Hours) Vital Signs Temp Pulse Pulse Resp BP BP BP 01/12/23 19:00 36.6 C 84 18 133/77 01/12/23 16:42 112 H 01/12/23 15:01 36.6 C 96 H 20 97/59 L 87/57 L 01/12/23 12:06 36.5 C 107/65 01/12/23 12:00 83 101/74 01/12/23 11:30 98 H 95/84 L 01/12/23 11:00 81 110/60 01/12/23 10:30 103 H 104/64 01/12/23 10:15 100 H 108/70 01/12/23 10:03 36.5 C Pulse Ox O2 Del Method O2 Flow Rate 01/12/23 19:00 92 Room Air 01/12/23 16:42 01/12/23 15:01 98 Nasal Cannula 3 01/12/23 12:06 01/12/23 12:00 01/12/23 11:30 01/12/23 11:00 01/12/23 10:30 01/12/23 10:15 01/12/23 10:03 Laboratory Results Abnormal lab results 01/12/23 01/12/23 01/12/23 Range/Units 07:35 07:35 08:13 RBC 2.52 L (4.70-6.10) M/uL Hgb 7.6 L (14.0-18.0) g/dl POC Hgb (14.0-18.0) g/dl Hct 23.0 L (42.0-52.0) % POC Hct (42-52) % Lymph # (Auto) (1.20-3.40) K/uL [place] # (Auto) 0.79 H (0.11-0.59) K/uL Immature Gran # (Auto) (0.01-0.20) K/uL POC pH (7.35-7.45) POC pCO2 (35-46) mmHg POC pO2 (80-95) mmHg POC HCO3 (19-24) vince/L ABG pH (Temp Correct) (7.35-7.45) ABG pCO2 (Temp Corrct (35-46) mmHg POC ABG O2 Sat (90-95) % Anion Gap (3-11) BUN 36 H (6-23) mg/dl Creatinine 4.62 H* D (0.6-1.4) mg/dl BUN/Creatinine Ratio 7.8 L (10-20) Glucose 108 H (70-99(Fasting)) mg/dl POC Glucose 106 H (70-99) mg/dl Lactate (0.4-2.0) mmol/L Calcium 8.5 L (8.6-10.3) mg/dl Direct Bilirubin (0-0.2) mg/dl AST 151 H (13-39) U/L ALT 140 H (7-52) U/L Alkaline Phosphatase 202 H (34-104) U/L Troponin I High Sens (0-20) pg/ml Albumin 2.8 L (3.4-5.0) gm/dl Globulin 4.1 H (2.5-4.0) gm/dl Albumin/Globulin Ratio 0.7 L (0.9-2) 01/12/23 01/12/23 01/12/23 Range/Units 12:03 14:41 20:19 RBC (4.70-6.10) M/uL Hgb (14.0-18.0) g/dl POC Hgb (14.0-18.0) g/dl Hct (42.0-52.0) % POC Hct (42-52) % Lymph # (Auto) (1.20-3.40) K/uL [place] # (Auto) (0.11-0.59) K/uL Immature Gran # (Auto) (0.01-0.20) K/uL POC pH (7.35-7.45) POC pCO2 (35-46) mmHg POC pO2 (80-95) mmHg POC HCO3 (19-24) vince/L ABG pH (Temp Correct) (7.35-7.45) ABG pCO2 (Temp Corrct (35-46) mmHg POC ABG O2 Sat (90-95) % Anion Gap (3-11) BUN (6-23) mg/dl Creatinine (0.6-1.4) mg/dl BUN/Creatinine Ratio (10-20) Glucose (70-99(Fasting)) mg/dl POC Glucose 105 H 177 H 180 H (70-99) mg/dl Lactate (0.4-2.0) mmol/L Calcium (8.6-10.3) mg/dl Direct Bilirubin (0-0.2) mg/dl AST (13-39) U/L ALT (7-52) U/L Alkaline Phosphatase (34-104) U/L Troponin I High Sens (0-20) pg/ml Albumin (3.4-5.0) gm/dl Globulin (2.5-4.0) gm/dl Albumin/Globulin Ratio (0.9-2) 01/12/23 01/12/23 01/12/23 Range/Units 21:02 21:02 21:02 RBC 2.78 L (4.70-6.10) M/uL Hgb 8.5 L (14.0-18.0) g/dl POC Hgb (14.0-18.0) g/dl Hct 26.1 L (42.0-52.0) % POC Hct (42-52) % Lymph # (Auto) 3.62 H (1.20-3.40) K/uL [place] # (Auto) (0.11-0.59) K/uL Immature Gran # (Auto) 0.22 H (0.01-0.20) K/uL POC pH (7.35-7.45) POC pCO2 (35-46) mmHg POC pO2 (80-95) mmHg POC HCO3 (19-24) vince/L ABG pH (Temp Correct) (7.35-7.45) ABG pCO2 (Temp Corrct (35-46) mmHg POC ABG O2 Sat (90-95) % Anion Gap 13 H (3-11) BUN (6-23) mg/dl Creatinine 3.36 H D (0.6-1.4) mg/dl BUN/Creatinine Ratio 6.3 L (10-20) Glucose 213 H (70-99(Fasting)) mg/dl POC Glucose (70-99) mg/dl Lactate 5.8 H* (0.4-2.0) mmol/L Calcium (8.6-10.3) mg/dl Direct Bilirubin 0.3 H (0-0.2) mg/dl AST 103 H (13-39) U/L ALT 121 H (7-52) U/L Alkaline Phosphatase 215 H (34-104) U/L Troponin I High Sens 20.2 H (0-20) pg/ml Albumin 2.7 L (3.4-5.0) gm/dl Globulin (2.5-4.0) gm/dl Albumin/Globulin Ratio (0.9-2) 01/12/23 Range/Units 21:07 RBC (4.70-6.10) M/uL Hgb (14.0-18.0) g/dl POC Hgb 8.2 L (14.0-18.0) g/dl Hct (42.0-52.0) % POC Hct 24 L (42-52) % Lymph # (Auto) (1.20-3.40) K/uL [place] # (Auto) (0.11-0.59) K/uL Immature Gran # (Auto) (0.01-0.20) K/uL POC pH 7.32 L (7.35-7.45) POC pCO2 51 H (35-46) mmHg POC pO2 357 H (80-95) mmHg POC HCO3 27 H (19-24) vince/L ABG pH (Temp Correct) 7.337 L (7.35-7.45) ABG pCO2 (Temp Corrct 49 H (35-46) mmHg POC ABG O2 Sat 100.0 H (90-95) % Anion Gap (3-11) BUN (6-23) mg/dl Creatinine (0.6-1.4) mg/dl BUN/Creatinine Ratio (10-20) Glucose (70-99(Fasting)) mg/dl POC Glucose (70-99) mg/dl Lactate (0.4-2.0) mmol/L Calcium (8.6-10.3) mg/dl Direct Bilirubin (0-0.2) mg/dl AST (13-39) U/L ALT (7-52) U/L Alkaline Phosphatase (34-104) U/L Troponin I High Sens (0-20) pg/ml Albumin (3.4-5.0) gm/dl Globulin (2.5-4.0) gm/dl Albumin/Globulin Ratio (0.9-2) Diagnostic Findings Chest X-Ray 01/10/23 18:53 XR chest 1V portable HISTORY: weak COMPARISON: Chest 01/26/2019. FINDINGS: There are low lung volumes. No pneumothorax. No pleural effusions. The cardiac silhouette is top normal in size. No evidence for pulmonary edema. No focal lung consolidations to suggest a pneumonia. A thoracic aortic stent graft is noted. A right jugular catheter terminates in the distal SVC. IMPRESSION: No acute process. ACT 112: Negative or not required by law. Electronically signed by: Alvarado Bo M.D. 01/11/2023 7:39 AM Chest X-Ray 01/12/23 14:43 SINGLE VIEW CHEST CLINICAL HISTORY: Dyspnea. Shaking. FINDINGS: An AP, portable, upright chest radiograph is compared to study dated 01/10/2023 and correlated with chest CT dated 09/18/2014. The examination is degraded by portable technique and apical lordotic positioning. A right jugular jugular central venous catheter is unchanged in position. The heart is enlarged. The pulmonary vasculature is noncongested. A stent graft is again seen in the thoracic aorta. Emphysema and chronic interstitial thickening similar to previous. There is bibasilar scarring/atelectasis. The lungs and pleural spaces are otherwise clear. No pneumothorax is seen. The skeletal structures are osteopenic. The bony thorax is grossly intact. IMPRESSION: Cardiomegaly and emphysema with no acute cardiopulmonary abnormality identified. ACT 112: Negative or not required by law. Electronically signed by: Mando Alfonso M.D. 01/12/2023 3:21 PM Chest CTA 01/12/23 15:41 Exam(s): CTA CHEST W/WO Contrast IV Amt: 118 ml opti 320 EXAM: CT Angiography Chest Without and With Intravenous Contrast CLINICAL HISTORY: Reason for exam: Recent thoracic aneurysm repair, now hypotensive. TECHNIQUE: Axial computed tomographic angiography images of the chest without and with intravenous contrast. CTDI is 37.99 mGy and DLP is 4063.15 mGy-cm. Automated exposure control was utilized for the study. A dose lowering technique was utilized adhering to the principles of ALARA. MIP reconstructed images were created and reviewed. CONTRAST: Patient received 118 ml opti 320 of IV contrast COMPARISON: Chest x-ray from January 12, 2023 FINDINGS: Pulmonary arteries: Unremarkable. No pulmonary embolism. Aorta: Previous stent grafting of the distal aortic arch and descending thoracic aorta. The graft is widely patent. The distal thoracic aorta demonstrates a sac measuring up to 4.7 cm. No endograft leakage is seen through the main portion of the graft. There is a trace amount of contrast tracking adjacent to the distal 2 cm of the thoracic graft at the level of the diaphragm. No thoracic aortic aneurysm. Great vessels of aortic arch: Trace amount of calcified plaque at the origin of the left subclavian artery without stenosis. Lungs: Small amount of linear scarring or atelectasis in the right mid to upper lung. Mild emphysematous changes are present. No mass. Pleural space: Unremarkable. No significant effusion. No pneumothorax. Heart: The heart is borderline enlarged. Severe coronary calcification is present. No pericardial effusion. No evidence of RV dysfunction. Thyroid: 2.3 cm right thyroid nodule inferiorly. Bones/joints: Mild multilevel degenerative change are seen throughout the spine. No acute fracture or subluxation is seen. Soft tissues: Unremarkable. Lymph nodes: Unremarkable. No enlarged lymph nodes. IMPRESSION: 1. Previous stent grafting of the distal aortic arch and descending thoracic aorta. The graft is widely patent. The distal thoracic aorta demonstrates a sac measuring up to 4.7 cm. No endograft leakage is seen through the main portion of the graft. There is a trace amount of contrast tracking adjacent to the distal 2 cm of the thoracic graft at the level of the diaphragm. Please see CT angiogram of the abdomen and pelvis. 2. Small amount of linear scarring or atelectasis in the right mid to upper lung. Mild emphysematous changes are present. Electronically signed by: Triston Ricketts MD 01/12/23 21:11 PM Abdomen/Pelvis CTA 01/12/23 16:14 Exam(s): CTA ABDOMEN + PELVIS W/WO Contrast IV Amt: 118 ml opti 320 EXAM: CT Angiography Abdomen and Pelvis Without and With Intravenous Contrast CLINICAL HISTORY: Reason for exam: recent thoracic aneurysm repair. TECHNIQUE: Axial computed tomographic angiography images of the abdomen and pelvis without and with intravenous contrast. CTDI is 37.99 mGy and DLP is 4063. 15 mGy-cm. Automated exposure control was utilized for the study. A dose lowering technique was utilized adhering to the principles of ALARA. MIP reconstructed images were created and reviewed. CONTRAST: Patient received 118 ml opti 320 of IV contrast COMPARISON: No relevant prior studies available. FINDINGS: VASCULATURE: Aorta: There is aneurysmal dilation of the distal thoracic and upper abdominal aorta measuring up to 4.5 cm in diameter. The thoracic graft terminates at the level of the diaphragm. There is a trace amount of contrast tracking along the inferior margin of the thoracic graft. There is an abdominal aortic stent graft in place with bilateral renal small goals. The grafts and stents are widely patent. The residual aneurysm sac in the infrarenal portion measures 3 cm. No endograft leakage or extravasation is seen. No dissection. Celiac trunk and mesenteric arteries: No acute findings. No occlusion or significant stenosis. Renal arteries: No acute findings. No occlusion or significant stenosis. Iliac arteries: There is a left external iliac artery stent which is widely patent. No occlusion or significant stenosis. 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 Calcified plaque causing 30% stenosis of the right common femoral artery. Lung bases: Unremarkable. No mass. No consolidation. ABDOMEN: Liver: There is mild fatty infiltration of the liver. No focal liver lesion is seen. Gallbladder and bile ducts: Unremarkable. No calcified stones. No ductal dilation. Pancreas: Unremarkable. No ductal dilation. No mass. Spleen: Unremarkable. No splenomegaly. Adrenals: Unremarkable. No mass. Kidneys and ureters: There are several simple cysts measuring up to 3. 1 cm in the lower pole the right kidney. No hydronephrosis or ureterolithiasis is seen. Stomach and bowel: There is diverticulosis throughout the colon. No evidence of acute diverticulitis. No acute inflammatory changes are seen involving the bowel. No obstruction. PELVIS: Appendix: No findings to suggest acute appendicitis. Bladder: Unremarkable. No stones. No mass. Reproductive: Unremarkable as visualized. ABDOMEN and PELVIS: Intraperitoneal space: Unremarkable. No significant fluid collection. No free air. Bones/joints: Mild to moderate spine. No acute fracture or subluxation is seen. Soft tissues: Unremarkable. Lymph nodes: Unremarkable. No enlarged lymph nodes. IMPRESSION: 1. 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 2. 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 The thoracic graft terminates at the level of the diaphragm. There is a trace amount of contrast tracking along the inferior margin of the thoracic graft. There is an abdominal aortic stent graft in place with bilateral renal small goals. The grafts and stents are widely patent. The residual aneurysm sac in the infrarenal portion measures 3 cm. No endograft leakage or extravasation is seen. 3. There is diverticulosis throughout the colon. No evidence of acute diverticulitis. No acute inflammatory changes are seen involving the bowel. Electronically signed by: Triston Ricketts MD 01/12/23 21:[address] 01/12/23 21:54 Exam(s): CT HEAD Without Contrast EXAM: CT Head Without Intravenous Contrast CLINICAL HISTORY: Reason for exam: unresponsive. TECHNIQUE: Axial computed tomography images of the head/brain without intravenous contrast. Automated exposure control was utilized for the study. A dose lowering technique was utilized adhering to the principles of ALARA. COMPARISON: March 29, 2022 FINDINGS: Brain: Mild diffuse cerebral atrophy and periventricular white matter low density consistent with chronic small vessel disease and/or senescent changes, unchanged. No acute large vessel infarct or intracranial hemorrhage is seen. There is contrast from recent CT angiogram. Ventricles: Mildly enlarged. No mass or hemorrhage. Bones/joints: Unremarkable. No acute fracture. Soft tissues: Unremarkable. Sinuses: Gas fluid levels involving the maxillary, sphenoid, and ethmoid sinuses suggesting acute sinusitis. Mastoid air cells: Unremarkable as visualized. No mastoid effusion. IMPRESSION: 1. Gas fluid levels involving the maxillary, sphenoid, and ethmoid sinuses suggesting acute sinusitis. 2. Mild diffuse cerebral atrophy and periventricular white matter low density consistent with chronic small vessel disease and/or senescent changes, unchanged. No acute large vessel infarct or intracranial hemorrhage is seen. There is contrast from recent CT angiogram. Electronically signed by: Triston Ricketts MD 01/12/23 22:57 PM Medications Administered Acetaminophen (Acetaminophen 325 Mg Tab) 650 mg PO Q6H PRN PRN Reason: Pain Stop: 02/09/23 22:24 Last Admin: 01/12/23 12:28 Dose: 650 mg Documented By: Admin: 01/12/23 04:26 Dose: 650 mg Documented By: Admin: 01/11/23 20:04 Dose: 650 mg Documented By: Admin: 01/11/23 10:53 Dose: 650 mg Documented By: LAUREN Co-signed By: BURAK Albuterol (Albuterol Hfa 8 Gm Inhaler) 2 puffs INH Q6H PRN PRN Reason: Wheezing Stop: 02/09/23 22:24 Last Admin: 01/11/23 20:42 Dose: 2 puffs Documented By: DELFINA Aspirin (Aspirin 81 Mg Ectab) [facility] [place] Stop: 02/10/23 08:59 Last Admin: 01/12/23 07:41 Dose: 81 mg Documented By: Admin: 01/11/23 08:28 Dose: 81 mg Documented By: SARBJIT Calcium Carbonate (Calcium Carbonate 500 Mg Chewable Tab) 1,000 mg PO Q4H PRN PRN Reason: Indigestion Stop: 02/10/23 20:42 Last Admin: 01/12/23 05:45 Dose: 1,000 mg Documented By: CARMELLA Clopidogrel Bisulfate (Clopidogrel Bisulfate 75 Mg Tab) [facility] [place] Stop: 02/10/23 08:59 Last Admin: 01/12/23 07:41 Dose: 75 mg Documented By: Admin: 01/11/23 08:28 Dose: 75 mg Documented By: SARBJIT Heparin Sodium (Porcine) (Heparin Sod 5,000 Unit/0.5 Ml Vial) 5,000 units SQ Q12 [facility] Stop: 02/09/23 22:24 Last Admin: 01/12/23 07:41 Dose: 5,000 units Documented By: Admin: 01/11/23 20:06 Dose: 5,000 units Documented By: Admin: 01/11/23 08:28 Dose: 5,000 units Documented By: Admin: 01/10/23 23:16 Dose: 5,000 units Documented By: CHALO Epinephrine HCl () 4 mg in 254 mls @ 6.538 mls/hr IV .Q24H [facility]; Protocol Stop: 02/11/23 20:59 Last Admin: 01/12/23 21:55 Dose: 0.02 mcg/kg/min, 6.5 mls/hr Documented By: JT Co-signed By: HARLEY Norepinephrine Bitartrate (Levophed/D5w) 4 mg in 250 mls @ 54.698 mls/hr IV .Q4H35M [facility]; Protocol Stop: 02/11/23 22:14 Last Titration: 01/12/23 22:50 Dose: 0.17 mcg/kg/min, 54.7 mls/hr Documented By: Titration: 01/12/23 22:40 Dose: 0.15 mcg/kg/min, 48.3 mls/hr Documented By: Titration: 01/12/23 22:35 Dose: 0.13 mcg/kg/min, 41.8 mls/hr Documented By: Titration: 01/12/23 22:30 Dose: 0.11 mcg/kg/min, 35.4 mls/hr Documented By: Titration: 01/12/23 22:25 Dose: 0.09 mcg/kg/min, 29 mls/hr Documented By: Titration: 01/12/23 22:20 Dose: 0.07 mcg/kg/min, 22.5 mls/hr Documented By: Admin: 01/12/23 22:15 Dose: 0.05 mcg/kg/min, 16.1 mls/hr Documented By: JT Co-signed By: ANTONIO Ondansetron HCl (Ondansetron Inj 2 Mg/Ml 2 Ml Vial) 4 mg IV Q6H PRN PRN Reason: Nausea Stop: 02/09/23 22:24 Last Admin: 01/12/23 12:42 Dose: 4 mg Documented By: SARBJIT Polyethylene Glycol (Polyethylene (Miralax) 17 Gm Pack) 17 gm PO BID [facility] Stop: 02/09/23 22:24 Last Admin: 01/12/23 22:53 Dose: Not Given Documented By: Admin: 01/12/23 07:42 Dose: Not Given Documented By: Admin: 01/11/23 20:06 Dose: Not Given Documented By: Admin: 01/11/23 08:37 Dose: Not Given Documented By: Admin: 01/10/23 23:25 Dose: Not Given Documented By: CHALO Simvastatin (Simvastatin 40 Mg Tab) 40 mg PO HS [facility] Stop: 02/09/23 22:24 Last Admin: 01/12/23 22:53 Dose: Not Given Documented By: Admin: 01/11/23 20:06 Dose: 40 mg Documented By: Admin: 01/10/23 23:17 Dose: 40 mg Documented By: CHALO Discontinued Medications Amlodipine Besylate (Amlodipine Besylate 5 Mg Tab) [facility] [place] Stop: 02/10/23 08:59 Last Admin: 01/12/23 07:41 Dose: 5 mg Documented By: Admin: 01/11/23 08:28 Dose: 5 mg Documented By: SARBJIT Benzonatate (Benzonatate 100 Mg Capsule) 200 mg PO TID PRN PRN Reason: Cough Stop: 02/10/23 20:59 Last Admin: 01/11/23 21:24 Dose: 200 mg Documented By: CARMELLA Diphenhydramine HCl (Diphenhydramine 50 Mg/Ml Vial) 50 mg IV ONE ONE Stop: 01/12/23 15:42 Last Admin: 01/12/23 18:27 Dose: 50 mg Documented By: SARBJIT Epoetin George (Epoetin George 40,000 Units/Ml Vial) 40,000 units IV TODAY@0900 [facility] Stop: 01/12/23 18:00 Last Admin: 01/12/23 10:55 Dose: 40,000 units Documented By: CC Fentanyl Citrate (Fentanyl Citrate 2,500 Mcg/250 Ml Bag) Confirm Administered Dose 2,500 mcg IV .STK-MED ONE Stop: 01/12/23 20:49 Last Admin: 01/12/23 22:53 Dose: Not Given Documented By: NAHUM Fluticasone/Vilanterol (Fluticasone/Vilanterol 100/25mcg 14 Puffs/Inhaler) 1 puffs [facility] [place] Stop: 02/10/23 08:59 Last Admin: 01/12/23 07:41 Dose: 1 puffs Documented By: Admin: 01/11/23 08:27 Dose: 1 puffs Documented By: SARBJIT Iron Sucrose 100 mg/ Syringe 5 mls @ 1 mls/min IV TODAY@0900 [facility] Stop: 01/12/23 18:00 Last Admin: 01/12/23 10:56 Dose: 1 mls/min Documented By: NALLELY Sodium Chloride (Nss) 500 mls @ 999 mls/hr IV .Q31M ONE Stop: 01/12/23 15:11 Last Infusion: 01/12/23 15:39 Dose: 0 mls/hr Documented By: Admin: 01/12/23 15:00 Dose: 999 mls/hr Documented By: SARBJIT Methylprednisolone 40 mg/ (Syringe) 0.64 mls @ 1.5 mls/min IV NOW ONE Stop: 01/12/23 15:46 Last Admin: 01/12/23 18:27 Dose: 1.5 mls/min Documented By: SARBJIT Influenza Virus Vaccine (Influenza Vaccine High-Dose (Hd-Iiv4) Pf 65+ 0.7ml Syr) 0.7 ml IM .ONCE ONE Stop: 01/10/23 23:11 Last Admin: 01/11/23 09:16 Dose: 0.7 ml Documented By: SARBJIT Insulin Aspart (Insulin Aspart Per Unit Charge) 0 units SC ACHS [facility] Stop: 02/09/23 22:24 Last Admin: 01/12/23 17:55 Dose: Not Given Documented By: Admin: 01/12/23 12:48 Dose: Not Given Documented By: Admin: 01/12/23 09:46 Dose: 2 units Documented By: SARBJIT Co-signed By: LUKE Admin: 01/11/23 20:05 Dose: 1 units Documented By: CARMELLA Co-signed By: NICOLE Admin: 01/11/23 18:26 Dose: 1 units Documented By: SARBJIT Co-signed By: JORDI Admin: 01/11/23 13:20 Dose: Not Given Documented By: Admin: 01/11/23 09:14 Dose: 2 units Documented By: SARBJIT Co-signed By: JORDI Admin: 01/10/23 23:24 Dose: 1 units Documented By: CHALO Co-signed By: CARMELLA Ioversol (Optiray 320 500ml) 118 ml IV ONCE ONE Stop: 01/12/23 20:23 Last Admin: 01/12/23 20:23 Dose: 118 ml Documented By: HÉCTOR Metoprolol Tartrate (Metoprolol Tartrate 100 Mg Tab) 100 mg PO BID [facility] Stop: 02/09/23 22:24 Last Admin: 01/12/23 07:41 Dose: 100 mg Documented By: Admin: 01/11/23 20:06 Dose: 100 mg Documented By: Admin: 01/11/23 08:28 Dose: 100 mg Documented By: Admin: 01/10/23 23:17 Dose: 100 mg Documented By: FANTASMAL Metoprolol Tartrate (Metoprolol Tartrate 1 Mg/Ml Vial) 5 mg IV NOW STA Stop: 01/12/23 08:44 Last Admin: 01/12/23 09:37 Dose: Not Given Documented By: SARBJIT Metoprolol Tartrate (Metoprolol Tartrate 25 Mg Tab) 25 mg PO NOW ONE Stop: 01/12/23 10:01 Last Admin: 01/12/23 09:57 Dose: 25 mg Documented By: SARBJIT Norepinephrine Bitartrate (Norepinephrine/D5w 4 Mg/250 Ml) Confirm Administered Dose 4 mg IV .STK-MED ONE Stop: 01/12/23 20:49 Last Admin: 01/12/23 22:53 Dose: Not Given Documented By: NAHUM Ondansetron HCl (Ondansetron Inj 2 Mg/Ml 2 Ml Vial) 4 mg IV NOW STA Stop: 01/10/23 16:51 Last Admin: 01/10/23 17:01 Dose: 4 mg Documented By: MES ECG Additional Comments: 12-JAN-2023 21:33 Sinus rythm with premature supraventricular complexes and premature ventricular complexes, incomplete right bundle branch block, left anterior fasicular block, T wave abnormality, consider lateral ischemia. 12-JAN-2023 20:31:04 Sinus tachycardia with Premature atrial complexes Left axis deviation Pulmonary disease pattern Nonspecific ST and T wave abnormality Abnormal ECG Coding Level of Care Code 57403 CRITICAL CARE 1ST 30-74M Diagnoses Cardiac arrest I46.9 Respiratory arrest R09.2 Required emergency intubation Z98.890 [place] (acute kidney injury) N17.9 Ambulatory dysfunction R26.2 History of thoracic aortic aneurysm repair Z98.890; Z86.79 Hypertension I10 Renal cell carcinoma C64.9 GERD (gastroesophageal reflux disease) K21.9 Diabetes mellitus, type 2 E11.9 CAD (coronary artery disease) I25.10
--- NOTE | 2023-01-12 21:49 | Procedure Note ---
Procedure Note Date of Service January 12, 2023 Note ARTERIAL LINE PROCEDURE NOTE: Procedure: Arterial Line Placement Procedural[facility] Attending: Dr. Escobar Indication: Monitoring on Pressors Anesthesia: [x ]None Consent was implied as emergent need for accurate blood pressure for titration of multiple vasoactive medications following cardiac arrest. A time-out was completed verifying correct patient, procedure, site, positioning. Allens test was performed to ensure adequate perfusion. Patients LEFT wrist was prepped and draped in the usual sterile fashion. Ultrasound guidance was used to aid needle placement. First attempt was unable to maintain flow with 20g long radial artherial catheter, catheter was exchanged for short cath. A 20g Arrow arterial line was introduced into the LEFT RADIAL artery, with brisk flash of blood, the Catheter was threaded, and the needle was removed with appropriate blood return. Good waveform was observed. The patient tolerated the procedure well. Number of attempts x2. The line was sutured in place and dressing was applied with attention to sterility. Blood Loss: Minimal Complications: None Ultrasound Guidance: Procedure Date: 01/13/23 Indication: direct visualization of arterial line access Artery Identified: YES Complications: NONE Patient tolerated procedure: WELL Coding
[2023-01-12] MEDS: NOREPINEPHRINE/D5W 4 MG/250 ML PLCT IV SCH (22:15)
[2023-01-12] MEDS: SIMVASTATIN 40 MG TAB PO SCH (22:53)
--- NOTE | 2023-01-12 22:58 | CT Scan Report ---
Exam(s): CT HEAD Without Contrast EXAM: CT Head Without Intravenous Contrast CLINICAL HISTORY: Reason for exam: unresponsive. TECHNIQUE: Axial computed tomography images of the head/brain without intravenous contrast. Automated exposure control was utilized for the study. A dose lowering technique was utilized adhering to the principles of ALARA. COMPARISON: March 29, 2022 FINDINGS: Brain: Mild diffuse cerebral atrophy and periventricular white matter low density consistent with chronic small vessel disease and/or senescent changes, unchanged. No acute large vessel infarct or intracranial hemorrhage is seen. There is contrast from recent CT angiogram. Ventricles: Mildly enlarged. No mass or hemorrhage. Bones/joints: Unremarkable. No acute fracture. Soft tissues: Unremarkable. Sinuses: Gas fluid levels involving the maxillary, sphenoid, and ethmoid sinuses suggesting acute sinusitis. Mastoid air cells: Unremarkable as visualized. No mastoid effusion. IMPRESSION: 1. Gas fluid levels involving the maxillary, sphenoid, and ethmoid sinuses suggesting acute sinusitis. 2. Mild diffuse cerebral atrophy and periventricular white matter low density consistent with chronic small vessel disease and/or senescent changes, unchanged. No acute large vessel infarct or intracranial hemorrhage is seen. There is contrast from recent CT angiogram. Electronically signed by: Triston Ricketts MD 01/12/23 22:57 PM
[2023-01-12] MEDS ORDERED: Nursing to Pharmacy Communication SCH (23:00)
[2023-01-12] MEDS ORDERED: fentaNYL BOLUS from BAG IV PRN (23:22)
[2023-01-12] MEDS ORDERED: DAPTOmycin 275 MG in SYRINGE 0 ML IV SCH (23:30)
[2023-01-12] MEDS ORDERED: fentaNYL citrate 2,500 MCG/250 ML BAG IV SCH (23:30)
[2023-01-12] MEDS ORDERED: PIPERACILLIN/TAZOBACTAM 4.5 GM in DEXTROSE 5% MINI-B 100 ML IV ONE (23:45)
[2023-01-13] MEDS ORDERED: INSULIN ASPART PER UNIT CHARGE SC SCH
[2023-01-13] MEDS: HEPARIN SOD 5,000 UNIT/0.5 ML VIAL SQ SCH ×3 (00:14→20:15)
[2023-01-13] MEDS ORDERED: SEVERE STRESS LEVEL ONE (00:18)
[2023-01-13] MEDS ORDERED: INSULIN PROTOCOL GOAL RANGE ONE (00:18)
[2023-01-13] MEDS ORDERED: STAT IV Infusion **Titration per Protocol STA (00:18)
[2023-01-13] MEDS ORDERED: INSULIN REGULAR 250 UNITS in SODIUM CHLORIDE 0.9% 247.5 ML IV SCH (00:30)
[2023-01-13] MEDS: INSULIN ASPART PER UNIT CHARGE SC SCH ×5 (00:34→20:14)
[2023-01-13] MEDS: METOPROLOL TARTRATE 100 MG TAB PO SCH (00:34)
[2023-01-13] MEDS ORDERED: NovoLIN-R BOLUS FROM BAG IV STA (00:46)
[2023-01-13] MEDS: NOREPINEPHRINE/D5W 4 MG/250 ML PLCT IV SCH ×3 (01:52→13:24)
[2023-01-13 04:36] LABS: Albumin Globulin Ratio 0.7 (0.9-2); Albumin Level 2.8 gm/dl (3.4-5.0); Bilirubin,Total 1.2 mg/dl (0.2-1.0); Calcium 9.2 mg/dl (8.6-10.3); Creatinine Clr Calc Pharmacy 16.5 ml/min; Est GFR (African American) 15.3 ml/min; Est GFR (Non-African American) 13.2 ml/min; Globulin 4.1 gm/dl (2.5-4.0); Magnesium 1.8 mg/dl (1.7-2.4); Phosphorus 4.5 mg/dl (2.5-4.9); Potassium 4.5 mmol/L (3.5-5.1); Total Protein 6.9 gm/dl (6.0-8.3)
[2023-01-13 04:49] LABS: Basophils # (auto) 0.01 K/uL (0.00-0.20); Basophils % (auto) 0.1 %; Eosinophils # (auto) 0.01 K/uL (0.00-0.50); Eosinophils % (auto) 0.1 %; Hematocrit (blood only) 23.9 % (42.0-52.0); Immature Granulocytes # (auto) 0.09 K/uL (0.01-0.20); Immature Granulocytes % (auto) 0.9 %; Lymphocytes # (auto) 0.55 K/uL (1.20-3.40); Lymphocytes % (auto) 5.8 %; Mean Corpuscular Hemoglobin 30.3 pg (25.0-34.0); Mean Corpuscular Hgb Conc 33.5 g/dL (32.0-36.0); Mean Corpuscular Volume 90.5 fL (80.0-100.0); Mean Platelet Volume 10.7 fL (9.4-12.4); Monocytes # (auto) 0.42 K/uL (0.11-0.59); Monocytes % (auto) 4.4 %; Neutrophils # (auto) 8.46 K/uL (1.40-6.50); Neutrophils % (auto) 88.7 %; Platelet Count 248 K/uL (130-400); RDW Coefficient of Variation 12.6 % (11.5-14.5); RDW Standard Deviation 41.1 fL (36.4-46.3); Red Blood Count 2.64 M/uL (4.70-6.10); White Blood Count 9.54 K/ul (4.8-10.8)
--- NOTE | 2023-01-13 07:03 | XRay Report ---
SINGLE VIEW CHEST CLINICAL HISTORY: Respiratory failure. Intubation. FINDINGS: An AP, portable, supine chest radiograph is compared to chest x-ray and chest CT performed earlier the same day 01/12/2023. The examination is degraded by portable technique, patient rotation, and apical lordotic positioning. An electronic device partially obscures the right lateral lung base. An endotracheal tube has been placed. The tip projects 2.5 cm above the gerson. An enteric tube has been placed. The tip projects below the diaphragm and is not visualized. A right jugular jugular cent ral venous catheter is unchanged in position. The heart is enlarged. The pulmonary vasculature is non congested. A stent graft is again seen in the thoracic aorta. Emphysema and chronic interstitial thic kening similar to previous. There is bibasilar scarring/atelectasis. The lungs and pleural spaces are otherwise clear. No pneumothorax is seen. The skeletal structures are osteopenic. The bony thorax is grossly intact. IMPRESSION: 1. Endotracheal and enteric tubes have been placed as above. 2. Cardiomegaly and emphysema with no acute cardiopulmonary abnormality identified. ACT 112: Negative or not required by law. Electronically signed by: Mando Alfonso M.D. 01/13/2023 7:02 AM
[2023-01-13] MEDS ORDERED: ICU Protocol for HYPERglycemia SCH (07:30)
[2023-01-13] MEDS: BUDESONIDE 0.25 MG/2 ML VIAL (PULMICORT) NEB SCH (07:49)
[2023-01-13] MEDS: FORMOTEROL 20 MCG/2 ML VIAL NEB SCH (07:49)
[2023-01-13] MEDS ORDERED: PIPERACILLIN/TAZOBACTAM 4.5 GM in DEXTROSE 5% MINI-B 100 ML IV SCH (08:00)
[2023-01-13] MEDS ORDERED: SODIUM BICARB 8.4% INJ 50 MEQ/50 ML SYR IV ONE ×2 (08:19→17:52)
[2023-01-13] MEDS ORDERED: SODIUM BICARB 8.4% INJ 50 MEQ/50 ML SYR IV STA (08:26)
--- NOTE | 2023-01-13 08:55 | Nephrology Progress Note ---
Date of Service January 13, 2023 Assessment & Plan (1) CAROLINA (acute kidney injury): Plan: Dialysis dependent CAR[place]. Now oliguric following hemodynamic instability overnight. [place] attributed to bilateral renal infarcts initially with presumed superimposed ATN. Completed short HD session with acceptable clearance. Electrolytes are controlled. Mixed respiratory and metabolic acidosis noted. HCO3 provided IV this AM. No emergent indication for dialysis at this time. Will revisit this afternoon. Medications appropriate for kidney function. (2) History of thoracic aortic aneurysm repair: Plan: CTA reviewed yesterday. Vascular consult pending. (3) Respiratory arrest: Plan: Remains ventilator dependent. (4) Cardiac arrest: Plan: MAP goal >65. Admission and Anticipated Discharge Date Admission Date: January 10, 2023 Subjective Mr. Acosta was seen and evaluated in the ICU this morning. He is intubated and unresponsive. Sinus rhythm on monitor. Levophed gtt is being weaned off. Overnight events were reviewed. I discussed the plan of care with Dr. Escobar and the ICU team. Yaron is oliguric, 50 ml of urine output in past 12 hours. HD treatment was stopped early yesterday due to nausea and shaking chills during treatment. Net UF <800 ml. Hemodynamically stable with atrial fibrillation and HR 90-110 during treatment. No fevers. CTA did not demonstrate pulmonary embolism. Review of Systems Review of Systems: Unobtainable due to endotracheal tube and Unobtainable due to reduced consciousness Physical Exam Constitutional: + ill appearing and + mechanically venti lated; no acute distress ENMT: ETT Neck: normal visual inspection and trachea midline Respiratory: normal respiratory effort Auscultation: lungs clear to auscultation bilaterally Cardiovascular: Rate/Rhythm: + tachycardic Heart Sounds: normal S1 and normal S2 Extremities: no edema Musculoskeletal: Extremities: no cyanosis and no clubbing Skin: normal turgor; no lesions Neurologic: + not awake Results & Data Vital Signs (Past 12 Hours) Vital Signs Temp Pulse Resp BP Pulse Ox O2 Del Method FiO2 01/13/23 06:00 143/68 H 01/13/23 06:00 88 19 98 01/13/23 05:45 144/77 H 01/13/23 05:45 71 22 98 01/13/23 05:44 67 154/66 H 01/13/23 05:37 Mechanical Vent 40 01/13/23 05:30 128/75 01/13/23 05:30 77 22 98 01/13/23 05:15 154/77 H 01/13/23 05:15 92 H 22 97 01/13/23 05:00 78 22 98 01/13/23 05:00 135/72 01/13/23 04:45 121/67 01/13/23 04:45 79 22 98 01/13/23 04:30 81 22 97 01/13/23 04:30 120/69 01/13/23 04:15 123/70 01/13/23 04:15 82 22 95 01/13/23 04:00 113/95 01/13/23 04:00 83 19 97 01/13/23 04:00 37.5 C 01/13/23 03:45 83 22 97 01/13/23 03:45 108/54 L 01/13/23 03:30 82 22 97 01/13/23 03:30 116/61 01/13/23 03:16 80 26 H 97 01/13/23 03:15 110/60 01/13/23 03:14 80 21 97 01/13/23 03:01 81 26 H 96 01/13/23 03:00 108/42 L 01/13/23 02:59 80 21 96 01/13/23 02:47 81 26 H 96 01/13/23 02:30 91/40 L 01/13/23 02:30 82 26 H 95 01/13/23 02:15 99/39 L 01/13/23 02:15 87 26 H 93 01/13/23 02:00 100/47 L 01/13/23 02:00 92 H 26 H 92 01/13/23 01:52 95 H 34 H 92 40 01/13/23 01:46 91/58 L 01/13/23 01:46 96 H 26 H 91 01/13/23 01:45 96 H 26 H 91 01/13/23 01:30 93 H 26 H 90 01/13/23 01:30 120/58 L 01/13/23 01:15 86 26 H 92 01/13/23 01:15 99/43 L 01/13/23 01:00 72 26 H 92 01/13/23 01:00 115/51 L 01/13/23 00:45 81 26 H 95 01/13/23 00:45 101/46 L 01/13/23 00:30 89 26 H 98 01/13/23 00:30 104/57 L 01/13/23 00:15 98 H 26 H 97 01/13/23 00:15 116/57 L 01/13/23 00:00 90 01/13/23 00:00 91 H 26 H 99 01/13/23 00:00 98/55 L 01/12/23 23:46 99 H 26 H 99 01/12/23 23:46 89/52 L 01/12/23 23:45 100 H 26 H 99 01/12/23 23:31 109 H 25 H 97 01/12/23 23:31 123/85 01/12/23 23:30 117 H 26 H 97 01/12/23 23:15 94 H 26 H 100 01/12/23 23:15 92/56 L 01/12/23 23:00 88 26 H 100 01/12/23 23:00 111/59 L 01/12/23 23:00 102 H 26 H 98 40 01/12/23 22:45 94 H 26 H 99 01/12/23 22:45 98/55 L 01/12/23 22:32 94 H 26 H 98 01/12/23 22:05 73/51 L 01/12/23 22:05 101 H 26 H 98 01/12/23 22:00 102 H 26 H 99 01/12/23 22:00 82/53 L 01/12/23 21:55 97/59 L 01/12/23 21:55 98 H 26 H 99 01/12/23 21:45 106 H 26 H 100 01/12/23 21:45 87/63 L 01/12/23 21:40 89/51 L 01/12/23 21:40 101 H 26 H 100 01/12/23 21:36 92 H 26 H 100 01/12/23 21:36 84/59 L 01/12/23 21:30 70 26 H 100 01/12/23 21:30 133/67 01/12/23 21:25 73/53 L 01/12/23 21:25 118 H 26 H 100 01/12/23 21:22 121 H 26 H 100 01/12/23 21:22 82/59 L 01/12/23 21:20 85/55 L 01/12/23 21:20 120 H 26 H 100 01/12/23 21:15 118 H 26 H 100 01/12/23 21:15 98/64 L 01/12/23 21:10 114 H 26 H 100 01/12/23 21:10 124/75 01/12/23 21:05 122 H 26 H 100 01/12/23 21:05 148/87 H 01/12/23 21:04 132 H 26 H 100 01/12/23 21:00 105 H 26 H 100 80 Laboratory Results Laboratory Results - last 24 hr 01/12/23 01/12/23 01/12/23 07:35 12:03 14:41 WBC RBC Hgb POC Hgb Hct POC Hct MCV MCH MCHC RDW Std Deviation RDW Coeff of Gennaro Plt Count MPV Immature Gran % (Auto) Neut % (Auto) Lymph % (Auto) Edgar % (Auto) Eos % (Auto) Baso % (Auto) Neut # (Auto) Lymph # (Auto) Edgar # (Auto) Eos # (Auto) Baso # (Auto) Immature Gran # (Auto) RBC Morphology Unremarkable PT INR Sample Site POC pH POC pCO2 POC pO2 POC HCO3 POC Total CO2 POC Base Excess ABG pH (Temp Correct) ABG pCO2 (Temp Corrct POC ABG pO2 at Pt Temp POC ABG O2 Sat Logan Test O2 Delivery Device POC O2 Rate POC FiO2 Tidal Volume PEEP POC Sodium Sodium POC Potassium Potassium Chloride Carbon Dioxide Anion Gap BUN Creatinine Est Cr Clr Drug Dosing Est GFR ( Amer) Est GFR (Non-Af Amer) BUN/Creatinine Ratio Glucose POC Glucose 105 H 177 H Lactate Calcium Phosphorus Magnesium Total Bilirubin Direct Bilirubin AST ALT Alkaline Phosphatase Troponin I High Sens Total Protein Albumin Globulin Albumin/Globulin Ratio Nasal Screen MRSA (PCR) 01/12/23 01/12/23 01/12/23 17:48 20:19 21:02 WBC 10.30 RBC 2.78 L Hgb 8.5 L POC Hgb Hct 26.1 L POC Hct MCV 93.9 MCH 30.6 MCHC 32.6 RDW Std Deviation 43.4 RDW Coeff of Gennaro 12.6 Plt Count 222 MPV 10.9 Immature Gran % (Auto) 2.1 Neut % (Auto) 55.5 Lymph % (Auto) 35.1 Edgar % (Auto) 4.6 Eos % (Auto) 2.4 Baso % (Auto) 0.3 Neut # (Auto) 5.71 Lymph # (Auto) 3.62 H Edgar # (Auto) 0.47 Eos # (Auto) 0.25 Baso # (Auto) 0.03 Immature Gran # (Auto) 0.22 H RBC Morphology PT 11.7 INR 1.1 Sample Site POC pH POC pCO2 POC pO2 POC HCO3 POC Total CO2 POC Base Excess ABG pH (Temp Correct) ABG pCO2 (Temp Corrct POC ABG pO2 at Pt Temp POC ABG O2 Sat Logan Test O2 Delivery Device POC O2 Rate POC FiO2 Tidal Volume PEEP POC Sodium Sodium 138 POC Potassium Potassium 4.0 Chloride 100 Carbon Dioxide 25 Anion Gap 13 H BUN 21 Creatinine 3.36 H D Est Cr Clr Drug Dosing 20.5 Est GFR ( Amer) 19.9 Est GFR (Non-Af Amer) 17.2 BUN/Creatinine Ratio 6.3 L Glucose 213 H POC Glucose 99 180 H Lactate 5.8 H* Calcium 10.3 Phosphorus Magnesium Total Bilirubin 0.6 Direct Bilirubin 0.3 H AST 103 H ALT 121 H Alkaline Phosphatase 215 H Troponin I High Sens 20.2 H Total Protein 6.5 Albumin 2.7 L Globulin Albumin/Globulin Ratio Nasal Screen MRSA (PCR) 01/12/23 01/12/23 01/13/23 21:07 21:15 02:19 WBC 9.54 RBC 2.64 L Hgb 8.0 L POC Hgb 8.2 L Hct 23.9 L POC Hct 24 L MCV 90.5 MCH 30.3 MCHC 33.5 RDW Std Deviation 41.1 RDW Coeff of Gennaro 12.6 Plt Count 248 MPV 10.7 Immature Gran % (Auto) 0.9 Neut % (Auto) 88.7 Lymph % (Auto) 5.8 Edgar % (Auto) 4.4 Eos % (Auto) 0.1 Baso % (Auto) 0.1 Neut # (Auto) 8.46 H Lymph # (Auto) 0.55 L Edgar # (Auto) 0.42 Eos # (Auto) 0.01 Baso # (Auto) 0.01 Immature Gran # (Auto) 0.09 RBC Morphology PT INR Sample Site L Radial POC pH 7.32 L POC pCO2 51 H POC pO2 357 H POC HCO3 27 H POC Total CO2 28 POC Base Excess 0.0 ABG pH (Temp Correct) 7.337 L ABG pCO2 (Temp Corrct 49 H POC ABG pO2 at Pt Temp 352 POC ABG O2 Sat 100.0 H Logan Test Pass O2 Delivery Device Ventilator POC O2 Rate 26 POC FiO2 100 Tidal Volume 450 PEEP 8 POC Sodium 138 Sodium 134 L POC Potassium 3.9 Potassium 4.5 Chloride 98 Carbon Dioxide 20 L Anion Gap 16 H BUN 29 H Creatinine 4.17 H D Est Cr Clr Drug Dosing 16.5 Est GFR ( Amer) 15.3 Est GFR (Non-Af Amer) 13.2 BUN/Creatinine Ratio 7.0 L Glucose 353 H* POC Glucose Lactate 2.7 H* Calcium 9.2 Phosphorus 4.5 Magnesium 1.8 Total Bilirubin 1.2 H D Direct Bilirubin AST 85 H ALT 122 H Alkaline Phosphatase 208 H Troponin I High Sens 179.5 H* D Total Protein 6.9 Albumin 2.8 L Globulin 4.1 H Albumin/Globulin Ratio 0.7 L Nasal Screen MRSA (PCR) Negative 01/13/23 01/13/23 05:06 07:40 WBC RBC Hgb POC Hgb Hct POC Hct MCV MCH MCHC RDW Std Deviation RDW Coeff of Gennaro Plt Count MPV Immature Gran % (Auto) Neut % (Auto) Lymph % (Auto) Edgar % (Auto) Eos % (Auto) Baso % (Auto) Neut # (Auto) Lymph # (Auto) Edgar # (Auto) Eos # (Auto) Baso # (Auto) Immature Gran # (Auto) RBC Morphology PT INR Sample Site POC pH POC pCO2 POC pO2 POC HCO3 POC Total CO2 POC Base Excess ABG pH (Temp Correct) ABG pCO2 (Temp Corrct POC ABG pO2 at Pt Temp POC ABG O2 Sat Logan Test O2 Delivery Device POC O2 Rate POC FiO2 Tidal Volume PEEP POC Sodium Sodium POC Potassium Potassium Chloride Carbon Dioxide Anion Gap BUN Creatinine Est Cr Clr Drug Dosing Est GFR ( Amer) Est GFR (Non-Af Amer) BUN/Creatinine Ratio Glucose POC Glucose Lactate 1.7 Calcium Phosphorus Magnesium Total Bilirubin Direct Bilirubin AST ALT Alkaline Phosphatase Troponin I High Sens Pending Total Protein Albumin Globulin Albumin/Globulin Ratio Nasal Screen MRSA (PCR) Diagnostic Findings CTA CHEST W/WO Contrast IV COMPARISON: Chest x-ray from January 12, 2023 FINDINGS: Pulmonary arteries: Unremarkable. No pulmonary embolism. Aorta: Previous stent grafting of the distal aortic arch and descending thoracic aorta. The graft is widely patent. The distal thoracic aorta demonstrates a sac measuring up to 4.7 cm. No endograft leakage is seen through the main portion of the graft. There is a trace amount of contrast tracking adjacent to the distal 2 cm of the thoracic graft at the level of the diaphragm. No thoracic aortic aneurysm. Great vessels of aortic arch: Trace amount of calcified plaque at the origin of the left subclavian artery without stenosis. Lungs: Small amount of linear scarring or atelectasis in the right mid to upper lung. Mild emphysematous changes are present. No mass. Pleural space: Unremarkable. No significant effusion. No pneumothorax. Heart: The heart is borderline enlarged. Severe coronary calcification is present. No pericardial effusion. No evidence of RV dysfunction. Thyroid: 2.3 cm right thyroid nodule inferiorly. Bones/joints: Mild multilevel degenerative change are seen throughout the spine. No acute fracture or subluxation is seen. Soft tissues: Unremarkable. Lymph nodes: Unremarkable. No enlarged lymph nodes. IMPRESSION: 1. Previous stent grafting of the distal aortic arch and descending thoracic aorta. The graft is widely patent. The distal thoracic aorta demonstrates a sac measuring up to 4.7 cm. No endograft leakage is seen through the main portion of the graft. There is a trace amount of contrast tracking adjacent to the distal 2 cm of the thoracic graft at the level of the diaphragm. Please see CT angiogram of the abdomen and pelvis. 2. Small amount of linear scarring or atelectasis in the right mid to upper lung. Mild emphysematous changes are present. CTA ABDOMEN + PELVIS W/WO Contrast IV EXAM: CT Angiography Abdomen and Pelvis Without and With Intravenous Contrast FINDINGS: VASCULATURE: Aorta: There is aneurysmal dilation of the distal thoracic and upper abdominal aorta measuring up to 4.5 cm in diameter. The thoracic graft terminates at the level of the diaphragm. There is a trace amount of contrast tracking along the inferior margin of the thoracic graft. There is an abdominal aortic stent graft in place with bilateral renal small goals. The grafts and stents are widely patent. The residual aneurysm sac in the infrarenal portion measures 3 cm. No endograft leakage or extravasation is seen. No dissection. Celiac trunk and mesenteric arteries: No acute findings. No occlusion or significant stenosis. Renal arteries: No acute findings. No occlusion or significant stenosis. Iliac arteries: There is a left external iliac artery stent which is widely patent. No occlusion or significant stenosis. 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 Calcified plaque causing 30% stenosis of the right common femoral artery. Lung bases: Unremarkable. No mass. No consolidation. ABDOMEN: Liver: There is mild fatty infiltration of the liver. No focal liver lesion is seen. Gallbladder and bile ducts: Unremarkable. No calcified stones. No ductal dilation. Pancreas: Unremarkable. No ductal dilation. No mass. Spleen: Unremarkable. No splenomegaly. Adrenals: Unremarkable. No mass. Kidneys and ureters: There are several simple cysts measuring up to 3. 1 cm in the lower pole the right kidney. No hydronephrosis or ureterolithiasis is seen. Stomach and bowel: There is diverticulosis throughout the colon. No evidence of acute diverticulitis. No acute inflammatory changes are seen involving the bowel. No obstruction. PELVIS: Appendix: No findings to suggest acute appendicitis. Bladder: Unremarkable. No stones. No mass. Reproductive: Unremarkable as visualized. ABDOMEN and PELVIS: Intraperitoneal space: Unremarkable. No significant fluid collection. No free air. Bones/joints: Mild to moderate spine. No acute fracture or subluxation is seen. Soft tissues: Unremarkable. Lymph nodes: Unremarkable. No enlarged lymph nodes. IMPRESSION: 1. 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 2. 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 The thoracic graft terminates at the level of the diaphragm. There is a trace amount of contrast tracking along the inferior margin of the thoracic graft. There is an abdominal aortic stent graft in place with bilateral renal small goals. The grafts and stents are widely patent. The residual aneurysm sac in the infrarenal portion measures 3 cm. No endograft leakage or extravasation is seen. 3. There is diverticulosis throughout the colon. No evidence of acute diverticulitis. No acute inflammatory changes are seen involving the bowel. PG Care Time/CCT Total # of Minutes Spent Total Time Spent with Patient: Total time spent is greater than 50% in coordination of care (as documented) at patient's floor/unit and/or counseling patient: Coding Level of Care Code 63914 SUB INP/OBS CARE 3/50MIN Diagnoses [place] (acute kidney injury) N17.9 History of thoracic aortic aneurysm repair Z98.890; Z86.79 Respiratory arrest R09.2 Cardiac arrest I46.9
[2023-01-13] MEDS: ASPIRIN 81 MG ECTAB PO SCH ×2 (10:09→10:24)
[2023-01-13] MEDS: CLOPIDOGREL BISULFATE 75 MG TAB PO SCH ×2 (10:09→10:47)
[2023-01-13] MEDS: POLYETHYLENE (MIRALAX) 17 GM PACK PO SCH ×2 (10:10→20:14)
[2023-01-13] MEDS ORDERED: MIDAZOLAM HCL 1 MG/ML 2ML VIAL IV PRN ×2 (10:20)
[2023-01-13] MEDS ORDERED: fentaNYL citrate PF 100 MCG/2 ML VIAL IV PRN ×2 (10:20)
--- NOTE | 2023-01-13 10:21 | Critical Care Progress Note ---
Date of Service January 13, 2023 Assessment & Plan (1) Cardiac arrest: (2) Respiratory arrest: (3) Required emergency intubation: (4) [place] (acute kidney injury): (5) Ambulatory dysfunction: (6) History of thoracic aortic aneurysm repair: (7) Hypertension: (8) Renal cell carcinoma: (9) GERD (gastroesophageal reflux disease): (10) Diabetes mellitus, type 2: (11) CAD (coronary artery disease): Plan Reason Critically Ill: 72 YOM admitted for rehab placement following prolonged admission for thoracic aneurysm repair at [facility] that was complicated by renal infarcts and dialysis dependant [place]. He suffered a respiratory arrest x2 this evening requiring intubation and mechanical ventilation, following intubation and transfer he suffered from bradycardic arrest requiring CPR and epinephrine pushes and infusion. Neuro - Concern for anoxic brain injury, ambulatory dysfuncition Extubated successfully this morning. Alert oriented and conversing well with family Cardiac - Cardiac arrest, bradycardia, shock, PAF, s/p thoracic aneurysm repair Atrial fibrillation Coronary artery disease Bradycardia Cardiac arrest -Reviewed cardiology notes Aortic dissection status post endovascular repair at [facility] -Reviewed vascular surgery notes no indication for intervention at this time Respiratory -Hypoxic Respiratory arrest: Improving -Wean oxygen as needed GI - GERD -Proceed with renal diet - PPI RENAL/LYTES - [place] dialysis dependant, -Discussed with nephrology, no indication for urgent dialysis - Acosta to gravity - unsure at this time how much urine patient makes ENDO - DMII - ICU hyperglycemic protocol - goal <180mg/dl -Transition off insulin infusion to subcutaneous protocol HEME - No acute needs - HGB up trended- no evidence of acute blood loss or endo leak -Would benefit from systemic anticoagulation for atrial fibrillation per cardiology notes -Defer initiation until tomorrow given comorbidities ID - shock unspecified as above - Afebrile, no leukocytosis with am labs - however can't exclude sepsis at this time - blood cultures x2 -Discontinue antibiotics LINES/IV ACCESS - CVL, [place], ETT, OGT, Acosta -Consider discontinuation of CVL and A-line when off vasoactive's for 12 to 24 hours DVT PROPHYLAXIS - SCDs, ASA/Plavix, Heparin subq DISPO: ICU. I have personally spent 50 minutes of critical care time in the direct management of this patient. This is a life/limb threatening event. This includes time spent evaluating patient, direct bedside care, chart review, placing orders, interpretation of diagnostic studies, discussion with consultants, patient, and family members, as well as other required patient management activities. This time is exclusive of all separately billable procedures, and teaching time and separate from and in addition to any other critical care service time. Admission and Anticipated Discharge Date Admission Date: January 10, 2023 Subjective Patient arousable to verbal stimuli, attempting to follow commands, we will proceed with extubation Physical Exam Physical Exam: General: Arouses to verbal stimuli. nontoxic. Skin: Warm, dry, Head: Atraumatic Ears, nose, mouth and throat: airway obscured by endotracheal tube Cardiovascular: Normal peripheral perfusion Respiratory: Ventilator settings reviewed, tolerating pressure support ventilation on minimal settings Gastrointestinal: Non distended Musculoskeletal: No deformity Results & Data Results & Data Vital Signs (Past 12 Hours) Vital Signs Temp Pulse Resp BP Pulse Ox O2 Del Method FiO2 01/13/23 09:44 82/57 L 01/13/23 09:44 96 H 26 H 99 01/13/23 09:40 93 H 23 99 01/13/23 09:30 104/63 01/13/23 09:30 91 H 26 H 100 01/13/23 09:20 85 26 H 100 01/13/23 09:15 121/68 01/13/23 09:15 85 26 H 100 01/13/23 09:00 116/70 01/13/23 09:00 86 26 H 99 01/13/23 08:45 89 26 H 100 01/13/23 08:45 125/71 01/13/23 08:30 100/70 01/13/23 08:30 101 H 26 H 98 01/13/23 08:15 132/80 01/13/23 08:15 98 H 26 H 98 01/13/23 08:09 100 H 22 96 01/13/23 08:09 175/80 H 01/13/23 08:00 140 H 27 H 94 40 01/13/23 08:00 144 H 18 94 01/13/23 07:45 161/96 H 01/13/23 07:45 70 22 99 01/13/23 07:30 146/76 H 01/13/23 07:30 72 22 98 01/13/23 07:15 165/95 H 01/13/23 07:15 71 22 99 01/13/23 07:00 171/90 H 01/13/23 07:00 70 22 98 01/13/23 06:00 143/68 H 01/13/23 06:00 88 19 98 01/13/23 05:45 144/77 H 01/13/23 05:45 71 22 98 01/13/23 05:44 67 154/66 H 01/13/23 05:37 Mechanical Vent 40 01/13/23 05:30 128/75 01/13/23 05:30 77 22 98 01/13/23 05:15 154/77 H 01/13/23 05:15 92 H 22 97 01/13/23 05:00 78 22 98 01/13/23 05:00 135/72 01/13/23 04:45 121/67 01/13/23 04:45 79 22 98 01/13/23 04:30 81 22 97 01/13/23 04:30 120/69 01/13/23 04:15 123/70 01/13/23 04:15 82 22 95 01/13/23 04:00 113/95 01/13/23 04:00 83 19 97 01/13/23 04:00 37.5 C 01/13/23 03:45 83 22 97 01/13/23 03:45 108/54 L 01/13/23 03:30 82 22 97 01/13/23 03:30 116/61 01/13/23 03:16 80 26 H 97 01/13/23 03:15 110/60 01/13/23 03:14 80 21 97 01/13/23 03:01 81 26 H 96 01/13/23 03:00 108/42 L 01/13/23 02:59 80 21 96 01/13/23 02:47 81 26 H 96 01/13/23 02:30 91/40 L 01/13/23 02:30 82 26 H 95 01/13/23 02:15 99/39 L 01/13/23 02:15 87 26 H 93 01/13/23 02:00 100/47 L 01/13/23 02:00 92 H 26 H 92 01/13/23 01:52 95 H 34 H 92 40 01/13/23 01:46 91/58 L 01/13/23 01:46 96 H 26 H 91 01/13/23 01:45 96 H 26 H 91 01/13/23 01:30 93 H 26 H 90 01/13/23 01:30 120/58 L 01/13/23 01:15 86 26 H 92 01/13/23 01:15 99/43 L 01/13/23 01:00 72 26 H 92 01/13/23 01:00 115/51 L 01/13/23 00:45 81 26 H 95 01/13/23 00:45 101/46 L 01/13/23 00:30 89 26 H 98 01/13/23 00:30 104/57 L 01/13/23 00:15 98 H 26 H 97 01/13/23 00:15 116/57 L 01/13/23 00:00 90 01/13/23 00:00 91 H 26 H 99 01/13/23 00:00 98/55 L 01/12/23 23:46 99 H 26 H 99 01/12/23 23:46 89/52 L 01/12/23 23:45 100 H 26 H 99 01/12/23 23:31 109 H 25 H 97 01/12/23 23:31 123/85 01/12/23 23:30 117 H 26 H 97 01/12/23 23:15 94 H 26 H 100 01/12/23 23:15 92/56 L 01/12/23 23:00 88 26 H 100 01/12/23 23:00 111/59 L 01/12/23 23:00 102 H 26 H 98 40 01/12/23 22:45 94 H 26 H 99 01/12/23 22:45 98/55 L 01/12/23 22:32 94 H 26 H 98 Critical Care Results & Data Vital Signs (Past 12 Hours) Vital Signs Pulse Resp BP Pulse Ox O2 Del Method O2 Flow Rate FiO2 01/13/23 16:01 98 H 25 H 93 01/13/23 16:01 107/61 01/13/23 16:00 95 H 17 94 01/13/23 16:00 147/50 H 01/13/23 16:00 97 H 01/13/23 15:31 95 H 19 94 01/13/23 15:31 107/58 L 01/13/23 15:00 95 H 22 78 L 01/13/23 15:00 117/55 L 01/13/23 14:31 103/53 L 01/13/23 14:31 96 H 22 90 01/13/23 14:18 95 H 21 95 01/13/23 14:18 108/58 L 01/13/23 14:16 102/62 01/13/23 14:16 95 H 23 94 01/13/23 14:15 104/62 01/13/23 14:15 93 H 17 93 01/13/23 14:00 91/63 L 01/13/23 14:00 90 21 85 L 01/13/23 13:45 115/58 L 01/13/23 13:45 90 19 01/13/23 13:30 90 24 91 Nasal Cannula 4 01/13/23 13:30 118/61 01/13/23 13:16 96 H 16 95 01/13/23 13:16 134/51 L 01/13/23 13:00 114/64 01/13/23 13:00 93 H 20 95 Oxymask 4 01/13/23 12:30 106/57 L 01/13/23 12:30 98 H 26 H 01/13/23 12:15 107/63 01/13/23 12:15 93 H 19 96 01/13/23 12:00 120/54 L 01/13/23 12:00 100 H 26 H 93 01/13/23 12:00 161/60 H 01/13/23 11:45 107/59 L 01/13/23 11:45 94 H 19 96 01/13/23 11:30 95 H 19 94 01/13/23 11:30 110/64 01/13/23 11:15 107/58 L 01/13/23 11:15 100 H 16 94 01/13/23 11:00 108/69 01/13/23 11:00 103 H 17 94 01/13/23 10:45 112/70 01/13/23 10:45 101 H 20 95 01/13/23 10:15 82/59 L 01/13/23 10:15 94 H 26 H 98 01/13/23 10:00 90 23 99 Oxymask 4 01/13/23 10:00 92/61 L 01/13/23 09:45 90/53 L 01/13/23 09:45 97 H 26 H 99 01/13/23 09:44 82/57 L 01/13/23 09:44 96 H 26 H 99 01/13/23 09:40 93 H 23 99 01/13/23 09:30 104/63 01/13/23 09:30 91 H 26 H 100 01/13/23 09:20 85 26 H 100 01/13/23 09:15 121/68 01/13/23 09:15 85 26 H 100 01/13/23 09:00 116/70 01/13/23 09:00 86 26 H 99 01/13/23 08:45 89 26 H 100 01/13/23 08:45 125/71 01/13/23 08:30 100/70 01/13/23 08:30 101 H 26 H 98 01/13/23 08:15 132/80 01/13/23 08:15 98 H 26 H 98 01/13/23 08:09 100 H 22 96 01/13/23 08:09 175/80 H 01/13/23 08:00 Mechanical Vent 40 01/13/23 08:00 70 01/13/23 08:00 Mechanical Vent 01/13/23 08:00 140 H 27 H 94 40 01/13/23 08:00 144 H 18 94 01/13/23 07:45 161/96 H 01/13/23 07:45 70 22 99 01/13/23 07:30 146/76 H 01/13/23 07:30 72 22 98 01/13/23 07:15 165/95 H 01/13/23 07:15 71 22 99 01/13/23 07:00 171/90 H 01/13/23 07:00 70 22 98 01/13/23 06:00 143/68 H 01/13/23 06:00 88 19 98 01/13/23 05:45 144/77 H 01/13/23 05:45 71 22 98 01/13/23 05:44 67 154/66 H 01/13/23 05:37 Mechanical Vent 40 01/13/23 05:30 128/75 01/13/23 05:30 77 22 98 01/13/23 05:15 154/77 H 01/13/23 05:15 92 H 22 97 01/13/23 05:00 78 22 98 01/13/23 05:00 135/72 Lab & Micro Results (Past 24 Hours) RBC 2.64 M/uL (4.70-6.10) L 01/13/23 WBC 9.54 K/ul (4.8-10.8) 01/13/23 Hgb 8.0 g/dl (14.0-18.0) L 01/13/23 Hct 23.9 % (42.0-52.0) L 01/13/23 MCV 90.5 fL (80.0-100.0) 01/13/23 MCH 30.3 pg (25.0-34.0) 01/13/23 MCHC 33.5 g/dL (32.0-36.0) 01/13/23 RDW Standard Deviation 41.1 fL (36.4-46.3) 01/13/23 RDW Coefficient of Variation 12.6 % (11.5-14.5) 01/13/23 Plt Count 248 K/uL (130-400) 01/13/23 MPV 10.7 fL (9.4-12.4) 01/13/23 Neutrophils (%) (Auto) 88.7 % 01/13/23 Lymphocytes (%) (Auto) 5.8 % 01/13/23 Monocytes # (Auto) 0.42 K/uL (0.11-0.59) 01/13/23 Eosinophils # (Auto) 0.01 K/uL (0.00-0.50) 01/13/23 Immature Granulocyte % (Auto) 0.9 % 01/13/23 Neutrophils # (Auto) 8.46 K/uL (1.40-6.50) H 01/13/23 Lymphocytes # (Auto) 0.55 K/uL (1.20-3.40) L 01/13/23 Monocytes # (Auto) 0.42 K/uL (0.11-0.59) 01/13/23 Eosinophils # (Auto) 0.01 K/uL (0.00-0.50) 01/13/23 Basophils # (Auto) 0.01 K/uL (0.00-0.20) 01/13/23 Immature Granulocyte # (Auto) 0.09 K/uL (0.01-0.20) 3 Na 134 mmol/L (136-145) L 01/13/23 K 4.5 mmol/L (3.5-5.1) 01/13/23 Cl 98 mmol/L (98-107) 01/13/23 CO2 20 mmol/L (21-32) L 01/13/23 Anion Gap 16 (3-11) H 01/13/23 BUN 29 mg/dl (6-23) H 01/13/23 Creatinine 4.17 mg/dl (0.6-1.4) H 01/13/23 Estimated GFR ( Amer) 15.3 ml/min 01/13/23 Estimated GFR (Non-Af Amer) 13.2 ml/min 01/13/23 BUN/Creatinine Ratio 7.0 (10-20) L 01/13/23 Glu 353 mg/dl (70-99(Fasting)) H* 01/13/23 Ca 9.2 mg/dl (8.6-10.3) 01/13/23 Phosphorus Level 4.5 mg/dl (2.5-4.9) 01/13/23 Total Bilirubin 1.2 mg/dl (0.2-1.0) H 01/13/23 Direct Bilirubin 0.3 mg/dl (0-0.2) H 01/12/23 AST 85 U/L (13-39) H 01/13/23 ALT 122 U/L (7-52) H 01/13/23 Alkaline Phosphatase 208 U/L (34-104) H 01/13/23 TP 6.9 gm/dl (6.0-8.3) 01/13/23 Albumin 2.8 gm/dl (3.4-5.0) L 01/13/23 Globulin 4.1 gm/dl (2.5-4.0) H 01/13/23 Albumin/Globulin Ratio 0.7 (0.9-2) L 01/13/23 Mg 1.8 mg/dl (1.7-2.4) 01/13/23 02:19 Calcium Level 9.2 mg/dl (8.6-10.3) 01/13/23 02:19 Prothromb Time International Ratio 1.1 (0.9-1.1) 01/12/23 21:0 2 Logna Test Pass 01/12/23 21:07 Diagnostic Findings (Past 24 Hours) Chest CTA 01/12/23 15:41 Exam(s): CTA CHEST W/WO Contrast IV Amt: 118 ml opti 320 EXAM: CT Angiography Chest Without and With Intravenous Contrast CLINICAL HISTORY: Reason for exam: Recent thoracic aneurysm repair, now hypotensive. TECHNIQUE: Axial computed tomographic angiography images of the chest without and with intravenous contrast. CTDI is 37.99 mGy and DLP is 4063.15 mGy-cm. Automated exposure control was utilized for the study. A dose lowering technique was utilized adhering to the principles of ALARA. MIP reconstructed images were created and reviewed. CONTRAST: Patient received 118 ml opti 320 of IV contrast COMPARISON: Chest x-ray from January 12, 2023 FINDINGS: Pulmonary arteries: Unremarkable. No pulmonary embolism. Aorta: Previous stent grafting of the distal aortic arch and descending thoracic aorta. The graft is widely patent. The distal thoracic aorta demonstrates a sac measuring up to 4.7 cm. No endograft leakage is seen through the main portion of the graft. There is a trace amount of contrast tracking adjacent to the distal 2 cm of the thoracic graft at the level of the diaphragm. No thoracic aortic aneurysm. Great vessels of aortic arch: Trace amount of calcified plaque at the origin of the left subclavian artery without stenosis. Lungs: Small amount of linear scarring or atelectasis in the right mid to upper lung. Mild emphysematous changes are present. No mass. Pleural space: Unremarkable. No significant effusion. No pneumothorax. Heart: The heart is borderline enlarged. Severe coronary calcification is present. No pericardial effusion. No evidence of RV dysfunction. Thyroid: 2.3 cm right thyroid nodule inferiorly. Bones/joints: Mild multilevel degenerative change are seen throughout the spine. No acute fracture or subluxation is seen. Soft tissues: Unremarkable. Lymph nodes: Unremarkable. No enlarged lymph nodes. IMPRESSION: 1. Previous stent grafting of the distal aortic arch and descending thoracic aorta. The graft is widely patent. The distal thoracic aorta demonstrates a sac measuring up to 4.7 cm. No endograft leakage is seen through the main portion of the graft. There is a trace amount of contrast tracking adjacent to the distal 2 cm of the thoracic graft at the level of the diaphragm. Please see CT angiogram of the abdomen and pelvis. 2. Small amount of linear scarring or atelectasis in the right mid to upper lung. Mild emphysematous changes are present. Electronically signed by: Triston Ricketts MD 01/12/23 21:11 PM Abdomen/Pelvis CTA 01/12/23 16:14 Exam(s): CTA ABDOMEN + PELVIS W/WO Contrast IV Amt: 118 ml opti 320 EXAM: CT Angiography Abdomen and Pelvis Without and With Intravenous Contrast CLINICAL HISTORY: Reason for exam: recent thoracic aneurysm repair. TECHNIQUE: Axial computed tomographic angiography images of the abdomen and pelvis without and with intravenous contrast. CTDI is 37.99 mGy and DLP is 4063. 15 mGy-cm. Automated exposure control was utilized for the study. A dose lowering technique was utilized adhering to the principles of ALARA. MIP reconstructed images were created and reviewed. CONTRAST: Patient received 118 ml opti 320 of IV contrast COMPARISON: No relevant prior studies available. FINDINGS: VASCULATURE: Aorta: There is aneurysmal dilation of the distal thoracic and upper abdominal aorta measuring up to 4.5 cm in diameter. The thoracic graft terminates at the level of the diaphragm. There is a trace amount of contrast tracking along the inferior margin of the thoracic graft. There is an abdominal aortic stent graft in place with bilateral renal small goals. The grafts and stents are widely patent. The residual aneurysm sac in the infrarenal portion measures 3 cm. No endograft leakage or extravasation is seen. No dissection. Celiac trunk and mesenteric arteries: No acute findings. No occlusion or significant stenosis. Renal arteries: No acute findings. No occlusion or significant stenosis. Iliac arteries: There is a left external iliac artery stent which is widely patent. No occlusion or significant stenosis. 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 Calcified plaque causing 30% stenosis of the right common femoral artery. Lung bases: Unremarkable. No mass. No consolidation. ABDOMEN: Liver: There is mild fatty infiltration of the liver. No focal liver lesion is seen. Gallbladder and bile ducts: Unremarkable. No calcified stones. No ductal dilation. Pancreas: Unremarkable. No ductal dilation. No mass. Spleen: Unremarkable. No splenomegaly. Adrenals: Unremarkable. No mass. Kidneys and ureters: There are several simple cysts measuring up to 3. 1 cm in the lower pole the right kidney. No hydronephrosis or ureterolithiasis is seen. Stomach and bowel: There is diverticulosis throughout the colon. No evidence of acute diverticulitis. No acute inflammatory changes are seen involving the bowel. No obstruction. PELVIS: Appendix: No findings to suggest acute appendicitis. Bladder: Unremarkable. No stones. No mass. Reproductive: Unremarkable as visualized. ABDOMEN and PELVIS: Intraperitoneal space: Unremarkable. No significant fluid collection. No free air. Bones/joints: Mild to moderate spine. No acute fracture or subluxation is seen. Soft tissues: Unremarkable. Lymph nodes: Unremarkable. No enlarged lymph nodes. IMPRESSION: 1. 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 2. 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 The thoracic graft terminates at the level of the diaphragm. There is a trace amount of contrast tracking along the inferior margin of the thoracic graft. There is an abdominal aortic stent graft in place with bilateral renal small goals. The grafts and stents are widely patent. The residual aneurysm sac in the infrarenal portion measures 3 cm. No endograft leakage or extravasation is seen. 3. There is diverticulosis throughout the colon. No evidence of acute diverticulitis. No acute inflammatory changes are seen involving the bowel. Electronically signed by: Triston Ricketts MD 01/12/23 21:22 PM Chest X-Ray 01/12/23 20:26 SINGLE VIEW CHEST CLINICAL HISTORY: Respiratory failure. Intubation. FINDINGS: An AP, portable, supine chest radiograph is compared to chest x-ray a nd chest CT performed earlier the same day 01/12/2023. The examination is degraded by portable technique, patient rotation, and apical lordotic positioning. An electronic device partially obscures the right lateral lung base. An endotracheal tube has been placed. The tip projects 2.5 cm above the gerson. An enteric tube has been placed. The tip projects below the diaphragm and is not visualized. A right jugular jugular central venous catheter is unchanged in position. The heart is enlarged. The pulmonary vasculature is noncongested. A stent graft is again seen in the thoracic aorta. Emphysema and chronic interstitial thickening similar to previous. There is bibasilar scarring/atelectasis. The lungs and pleural spaces are otherwise clear. No pneumothorax is seen. The skeletal structures are osteopenic. The bony thorax is grossly intact. IMPRESSION: 1. Endotracheal and enteric tubes have been placed as above. 2. Cardiomegaly and emphysema with no acute cardiopulmonary abnormality identified. ACT 112: Negative or not required by law. Electronically signed by: Mando Alfonso M.D. 01/13/2023 7:[address] 01/12/23 21:54 Exam(s): CT HEAD Without Contrast EXAM: CT Head Without Intravenous Contrast CLINICAL HISTORY: Reason for exam: unresponsive. TECHNIQUE: Axial computed tomography images of the head/brain without intravenous contrast. Automated exposure control was utilized for the study. A dose lowering technique was utilized adhering to the principles of ALARA. COMPARISON: March 29, 2022 FINDINGS: Brain: Mild diffuse cerebral atrophy and periventricular white matter low density consistent with chronic small vessel disease and/or senescent changes, unchanged. No acute large vessel infarct or intracranial hemorrhage is seen. There is contrast from recent CT angiogram. Ventricles: Mildly enlarged. No mass or hemorrhage. Bones/joints: Unremarkable. No acute fracture. Soft tissues: Unremarkable. Sinuses: Gas fluid levels involving the maxillary, sphenoid, and ethmoid sinuses suggesting acute sinusitis. Mastoid air cells: Unremarkable as visualized. No mastoid effusion. IMPRESSION: 1. Gas fluid levels involving the maxillary, sphenoid, and ethmoid sinuses suggesting acute sinusitis. 2. Mild diffuse cerebral atrophy and periventricular white matter low density consistent with chronic small vessel disease and/or senescent changes, unchanged. No acute large vessel infarct or intracranial hemorrhage is seen. There is contrast from recent CT angiogram. Electronically signed by: Triston Ricketts MD 01/12/23 22:57 PM I & O Totals 24 Hours 01/12/23 01/13/23 01/14/23 06:59 06:59 06:59 Intake Total 850 / 850 1029.198 / 1029.198 367.177 / 367.177 Output Total 400 / 400 110 / 110 15 / 15 Balance 450 / 450 919.198 / 919.198 352.177 / 352.177 Cumulative 01/10/23 15:57 thru 01/13/23 16:00 Intake Total 2496.375 Output Total 525 Balance 1971.375 RT Ventilator Mngmt (Last Documented) Ventilator Ordered Settings Ventilator Support Mode Assist Control 01/13/23 08:00 Respiratory Rate 25 01/13/23 16:01 Ventilator Tidal Volume 500 01/13/23 08:00 Setting Minute Ventilation 9.3 01/13/23 08:00 Positive End Expiratory 6 01/13/23 08:00 Pressure Fraction of Inspired Oxygen 40 01/13/23 08:00 Peak Inspiratory Flow 27 11/01/23 23:00 Ventilator - PT Measurements Respiratory Rate 25 Exhaled Tidal Volume 576 Minute Ventilation 9.3 Peak Inspiratory Airway 24 Pressure Plateau Pressure 18 Respiratory Cycle Inspiratory: 1:1.7 Expiratory Ratio Inspiratory Phase Time 1.0 End-Tidal CO2 20 Static Lung Compliance 48.00 Dynamic Lung Compliance 32.00 Normal Static Lung Compliance 47.00 Coding Level of Care Code 02786 CRITICAL CARE 1ST 30-74M Diagnoses Cardiac arrest I46.9 Respiratory arrest R09.2 Required emergency intubation Z98.890 [place] (acute kidney injury) N17.9 Ambulatory dysfunction R26.2 History of thoracic aortic aneurysm repair Z98.890; Z86.79 Hypertension I10 Renal cell carcinoma C64.9 GERD (gastroesophageal reflux disease) K21.9 Diabetes mellitus, type 2 E11.9 CAD (coronary artery disease) I25.10
--- NOTE | 2023-01-13 10:23 | XCELERA ---
[id number] [id number]
[2023-01-13] MEDS ORDERED: PANTOprazole 40 MG in SYRINGE 0 ML IV SCH (11:00)
[2023-01-13] MEDS ORDERED: Nursing to Pharmacy Communication SCH (11:00)
--- NOTE | 2023-01-13 12:02 | Electrocardiogram Report ---
Test Reason : Blood Pressure : / mmHG Vent. Rate : 127 BPM Atrial Rate : 127 BPM P-R Int : 154 ms QRS Dur : 090 ms QT Int : 304 ms P-R-T Axes : 080 -68 095 degrees QTc Int : 441 ms Sinus tachycardia with Premature atrial complexes Left axis deviation Nonspecific ST and T wave abnormality Abnormal ECG When compared with ECG of 12-JAN-2023 07:14, Sinus rhythm has replaced Atrial fibrillation Incomplete right bundle branch block is no longer Present Confirmed by Camilo Arreaga ([id number]) on 01/13/2023 12:02:04 PM Referred By: REFERRED SELF Confirmed By:Michael Arreaga
--- NOTE | 2023-01-13 12:03 | Electrocardiogram Report ---
Test Reason : Blood Pressure : / mmHG Vent. Rate : 092 BPM Atrial Rate : 092 BPM P-R Int : 162 ms QRS Dur : 114 ms QT Int : 392 ms P-R-T Axes : 077 -75 098 degrees QTc Int : 484 ms Sinus rhythm Incomplete right bundle branch block Left anterior fascicular block T wave abnormality, consider lateral ischemia Abnormal ECG Confirmed by Camilo Arreaga ([id number]) on 01/13/2023 12:03:18 PM Referred By: REFERRED SELF Confirmed By:Michael Arreaga
--- NOTE | 2023-01-13 14:30 | Consultation ---
Date of Consultation January 13, 2023 Assessment & Plan (1) History of thoracic aortic aneurysm repair: The thoracic aortic stent graft looks well-placed. There is slight contrast outside the graft at the distal end however this was not for aneurysm but for a dissection. We therefore would not do anything to this leakage on the outside of the graft. The stent graft comes down right to the celiac artery. The SMA is widely patent. There is a well-placed abdominal aortic endograft with stents into the bilateral kidneys which are patent. We recommend a plain CT repeat scan in 6 months for follow-up of his endograft. (2) Pseudoaneurysm of femoral artery following procedure: He has a small pseudoaneurysm in the right femoral artery anteriorly. At this point I would just follow this along conservatively. If this enlarges then repair will be needed. (3) [place] (acute kidney injury): There is no indication for intervention of his renal failure. Both stents appear to be patent on the CT angiogram. Thank you very much for letting us participate in the care of this patient. History of Present Illness Reason for Consultation: Status post stenting for type B aortic dissection Attending Physician: Xenia Paez MD History of Present Illness This is a 72-year-old gentleman who had an abdominal aortic aneurysm repaired in the past with endovascular stent graft. He presented recently to a local hospital where he was found to have an aortic dissection of his thoracic aorta. He was then transferred down to the [facility] in [place]. He underwent endograft and repair of his dissecting thoracic aorta. He subsequently developed renal failure and is now on dialysis. When discharged the family thought he was going to go to rehab but rather he was sent to an apartment where after 2 days he was not be able to take care of himself. He was brought to the ER at that point. He was complaining of general nationals and abdominal discomfort as well as back pain. CTA was recommended. While in CAT scan he suffered a respiratory arrest. He was taken to the ED and intubated. On his way from the ED to the ICU became bradycardic and suffered a cardiac arrest. He was resuscitated successfully. And later was able to be extubated. On exam today he does not complain of any back or abdominal pain. Allergies Allergy/AdvReac Type Severity Reaction Status Date / Time Iodinated Contrast Media Allergy Severe Anaphylaxis Verified 01/12/23 20:31 morphine Allergy Intermediate hives Verified 01/10/23 19:12 Penicillins Allergy Intermediate skin Verified 01/10/23 19:12 streaking tetanus toxoid, adsorbed Allergy Intermediate local skin Verified 01/10/23 19:12 irritation meperidine AdvReac Intermediate hallucinations, Verified 01/10/23 19:12 agitation Home Medications Medication Instructions Recorded Confirmed Type aspirin 81 mg tablet,delayed 81 mg PO QAM 01/18/19 01/10/23 History release (Nora Low Dose Aspirin) amlodipine 5 mg tablet 5 mg PO QAM 03/29/22 01/10/23 History metoprolol tartrate 100 mg tablet 100 mg PO BID 03/29/22 01/10/23 History simvastatin 40 mg tablet 40 mg PO HS 03/29/22 01/10/23 History metformin 500 mg tablet 500 mg PO BIDM 09/30/22 01/10/23 History acetaminophen 325 mg tablet 650 mg PO Q6H PRN Pain 01/10/23 01/10/23 History (Tylenol) albuterol sulfate 90 mcg/actuation 2 puff inhalation Q6H PRN Wheezing 01/10/23 01/10/23 History aerosol inhaler clopidogrel 75 mg tablet (Plavix) 75 mg PO QAM 01/10/23 01/10/23 History fluticasone furoate 100 1 inh inhalation QAM 01/10/23 01/10/23 History mcg-vilanterol 25 mcg/dose inhalation powder (Breo Ellipta) oxycodone 5 mg tablet 5 mg PO Q4H PRN Pain 01/10/23 01/10/23 History polyethylene glycol 3350 17 17 g PO BID 01/10/23 01/10/23 History gram/dose oral powder (Miralax) Patient History Medical History Benign prostatic hyperplasia with urinary obstruction Elevated PSA Malignant neoplasm of kidney excluding renal pelvis Urethral stricture History of abdominal aortic aneurysm (AAA) s/p repair + stent (2008) CAD (coronary artery disease) stents x 2 (2000) History of kidney cancer left kidney (2014) s/p tumor removal (s/p partial left nephrectomy) BPH (benign prostatic hyperplasia) GERD (gastroesophageal reflux disease) controlled Diabetes mellitus, type 2 diet controlled History of skin cancer face Hx of myocardial infarction 2001 - stents x 2 Hypertension Hyperlipidemia Renal mass, left Surgical History Status post insertion of iliac artery stent (from trauma from endovascular procedure per records) Hx of colonoscopy History of AAA (abdominal aortic aneurysm) repair + stent (2008) Hx of hernia repair Hx of abdominal surgery d/t peritonitis History of appendectomy History of kidney surgery Left partial robotic nephrectomy, hand assisted laparoscopy: 09/24/14: Grade I view, MAC#4, ETT 8 at [facility] Family History Brother Family history of diabetes mellitus Social History Smoking Status: Former smoker Tobacco Type: Cigarettes Second Hand Exposure: No; Do You Dip or Chew Tobacco: No; Hx Alcohol Use: No Hx Substance Use: No Preferred Language: Dominican Communication Ability: Effective Accounts Payable Administrator Required: No Beliefs That Will Affect Care: None Current Living Situation: Alone Current Living Situation Comment: single family home Feels Safe at Home: Yes Assistive Devices: Cane Review of Systems Review of Systems: Unobtainable due to cognitive status Physical Exam Constitutional: WD/WN, vitals as above Respiratory: normal respiratory effort; no respiratory distress Auscultation: lungs clear to auscultation bilaterally Cardiovascular: Rate/Rhythm: regular rate and regular rhythm Vessels: normal peripheral pulses Extremities: normal capillary refill; no edema Gastrointestinal (Abdomen): Inspection/Auscultation: abdomen normal to inspection; abdomen not distended Percussion/Palpation: abdomen soft Musculoskeletal: no cyanosis or clubbing, extremities motor strength 5/5 Neurologic: CN's II-XI intact bilaterally and moves all extremities Results & Data Vital Signs (Past 12 Hours) Vital Signs Temp Pulse Resp BP Pulse Ox O2 Del Method O2 Flow Rate 01/13/23 13:00 114/64 01/13/23 13:00 93 H 20 95 Oxymask 4 01/13/23 12:30 106/57 L 01/13/23 12:30 98 H 26 H 01/13/23 12:15 107/63 01/13/23 12:15 93 H 19 96 01/13/23 12:00 120/54 L 01/13/23 12:00 100 H 26 H 93 01/13/23 12:00 161/60 H 01/13/23 11:45 107/59 L 01/13/23 11:45 94 H 19 96 01/13/23 11:30 95 H 19 94 01/13/23 11:30 110/64 01/13/23 11:15 107/58 L 01/13/23 11:15 100 H 16 94 01/13/23 11:00 108/69 01/13/23 11:00 103 H 17 94 01/13/23 10:45 112/70 01/13/23 10:45 101 H 20 95 01/13/23 10:15 82/59 L 01/13/23 10:15 94 H 26 H 98 01/13/23 10:00 90 23 99 Oxymask 4 01/13/23 10:00 92/61 L 01/13/23 09:45 90/53 L 01/13/23 09:45 97 H 26 H 99 01/13/23 09:44 82/57 L 01/13/23 09:44 96 H 26 H 99 01/13/23 09:40 93 H 23 99 01/13/23 09:30 104/63 01/13/23 09:30 91 H 26 H 100 01/13/23 09:20 85 26 H 100 01/13/23 09:15 121/68 01/13/23 09:15 85 26 H 100 01/13/23 09:00 116/70 01/13/23 09:00 86 26 H 99 01/13/23 08:45 89 26 H 100 01/13/23 08:45 125/71 01/13/23 08:30 100/70 01/13/23 08:30 101 H 26 H 98 01/13/23 08:15 132/80 01/13/23 08:15 98 H 26 H 98 01/13/23 08:09 100 H 22 96 01/13/23 08:09 175/80 H 01/13/23 08:00 Mechanical Vent 01/13/23 08:00 70 01/13/23 08:00 Mechanical Vent 01/13/23 08:00 140 H 27 H 94 01/13/23 08:00 144 H 18 94 01/13/23 07:45 161/96 H 01/13/23 07:45 70 22 99 01/13/23 07:30 146/76 H 11/02/23 07:30 72 22 98 01/13/23 07:15 165/95 H 01/13/23 07:15 71 22 99 01/13/23 07:00 171/90 H 01/13/23 07:00 70 22 98 01/13/23 06:00 143/68 H 01/13/23 06:00 88 19 98 01/13/23 05:45 144/77 H 01/13/23 05:45 71 22 98 01/13/23 05:44 67 154/66 H 01/13/23 05:37 Mechanical Vent 01/13/23 05:30 128/75 01/13/23 05:30 77 22 98 01/13/23 05:15 154/77 H 01/13/23 05:15 92 H 22 97 01/13/23 05:00 78 22 98 01/13/23 05:00 135/72 01/13/23 04:45 121/67 01/13/23 04:45 79 22 98 01/13/23 04:30 81 22 97 01/13/23 04:30 120/69 01/13/23 04:15 123/70 01/13/23 04:15 82 22 95 01/13/23 04:00 113/95 01/13/23 04:00 83 19 97 01/13/23 04:00 37.5 C 01/13/23 03:45 83 22 97 01/13/23 03:45 108/54 L 01/13/23 03:30 82 22 97 01/13/23 03:30 116/61 01/13/23 03:16 80 26 H 97 01/13/23 03:15 110/60 01/13/23 03:14 80 21 97 01/13/23 03:01 81 26 H 96 01/13/23 03:00 108/42 L 01/13/23 02:59 80 21 96 01/13/23 02:47 81 26 H 96 01/13/23 02:30 91/40 L 01/13/23 02:30 82 26 H 95 FiO2 01/13/23 13:00 01/13/23 13:00 01/13/23 12:30 01/13/23 12:30 01/13/23 12:15 01/13/23 12:15 01/13/23 12:00 01/13/23 12:00 01/13/23 12:00 01/13/23 11:45 01/13/23 11:45 01/13/23 11:30 01/13/23 11:30 01/13/23 11:15 01/13/23 11:15 01/13/23 11:00 01/13/23 11:00 01/13/23 10:45 01/13/23 10:45 01/13/23 10:15 01/13/23 10:15 01/13/23 10:00 01/13/23 10:00 01/13/23 09:45 01/13/23 09:45 01/13/23 09:44 01/13/23 09:44 01/13/23 09:40 01/13/23 09:30 01/13/23 09:30 01/13/23 09:20 01/13/23 09:15 01/13/23 09:15 01/13/23 09:00 01/13/23 09:00 01/13/23 08:45 01/13/23 08:45 01/13/23 08:30 01/13/23 08:30 01/13/23 08:15 01/13/23 08:15 01/13/23 08:09 01/13/23 08:09 01/13/23 08:00 40 01/13/23 08:00 01/13/23 08:00 01/13/23 08:00 40 01/13/23 08:00 01/13/23 07:45 01/13/23 07:45 01/13/23 07:30 01/13/23 07:30 01/13/23 07:15 01/13/23 07:15 01/13/23 07:00 01/13/23 07:00 01/13/23 06:00 01/13/23 06:00 01/13/23 05:45 01/13/23 05:45 01/13/23 05:44 01/13/23 05:37 40 01/13/23 05:30 01/13/23 05:30 01/13/23 05:15 01/13/23 05:15 01/13/23 05:00 01/13/23 05:00 01/13/23 04:45 01/13/23 04:45 01/13/23 04:30 01/13/23 04:30 01/13/23 04:15 01/13/23 04:15 01/13/23 04:00 01/13/23 04:00 01/13/23 04:00 01/13/23 03:45 01/13/23 03:45 01/13/23 03:30 01/13/23 03:30 01/13/23 03:16 01/13/23 03:15 01/13/23 03:14 01/13/23 03:01 01/13/23 03:00 01/13/23 02:59 01/13/23 02:47 01/13/23 02:30 01/13/23 02:30
--- NOTE | 2023-01-13 15:11 | Hospitalist Progress Note ---
Date of Service January 13, 2023 Assessment & Plan (1) Ambulatory dysfunction: (2) Generalized weakness: (3) ESRD (end stage renal disease) on dialysis: (4) History of thoracic aortic aneurysm repair: (5) Renal cell carcinoma: (6) GERD (gastroesophageal reflux disease): (7) Hypertension: (8) Diabetes mellitus, type 2: (9) CAD (coronary artery disease): (10) Malignant neoplasm of prostate: Plan cardiorespiratory arrest Patient had an episode of cardiorespiratory arrest last evening He was feeling shaky, nauseous for which dialysis needed to be stopped earlier He was hypotensive and tachycardic CT angio of the chest abdomen and pelvis was ordered to see if his symptoms and signs had anything to do with his recent thoracic aneurysm repair CT angio was negative However soon after the contrast exposure, even though he was being premedicated, he went into cardiorespiratory arrest Unclear if the cardiorespiratory arrest was completely related to the contrast exposure (since he was feeling poorly all day yesterday) or if he has some issues with disequilibrium with dialysis He is being treated with IV antibiotics Blood cultures pending Improved today: off of the vent, off of pressors Monitor clinically Ambulatory dysfunction/generalized weakness- Status post prolonged stay in recovery from thoracic aneurysm repair patient was recently at [facility] where he had a thoracic aneurysm repair done. The family was under the impression that he was being discharged to a rehab facility but it ended up being [facility]. The patient is too weak and the family is not able to take care of him at [facility] and thus was brought into the emergency room PT/OT on board Case management on board Recent thoracic aneurysm repair CT angio of the chest, abdomen and pelvis was fairly unremarkable Vascular surgery involved. Appreciate their input. Follow-up in 6 months. Atrial fibrillation with rapid ventricular response Was seen in consultation by cardiology Currently fairly rate controlled He is at risk of thromboembolic events with an elevated [id number] score. We will hold off on anticoagulation for the time being May need to be started on low-dose Eliquis 2.5 twice daily with his dual antiplatelet therapy. 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 Metoprolol, amlodipine held. Diabetes mellitus- Hold metformin. Should not be on metformin even on discharge given ESRD Placed on Accu-Cheks with NovoLog SSI Disposition- will likely need inpatient rehab versus SNF Admission and Anticipated Discharge Date Admission Date: January 10, 2023 Subjective overnight events noted patient was having a bad day yesterday. He was hypotensive, nauseous, d iaphoretic, shivering. Dialysis was discontinued prematurely. A CT angio of the chest abdomen and pelvis was ordered. while at radiology, he had an episode of apneic breathing, unresponsiveness. A code purple was called. The patient ended up being intubated, there was a time when he bradycardia down and needed to have chest compression as well briefly. He ended up in the ICU. He was started on pressors and ventilation support. This morning, he was taken off of the ventilator and is now breathing on his own. He is off of all pressor support as well. When I saw the patient today, he was restless and moaning. He is awake and able to answer questions with brief responses. Review of Systems Review of Systems: Unobtainable due to cognitive status Physical Exam Physical Exam: General: Awake, moaning, restless. Oxy mask Heart: S1, S2/regular rate and rhythm, no murmur rubs or gallops Lungs: Clear to auscultation bilaterally. Normal effort Abdomen: Soft/nontender/nondistended. No hepatosplenomegaly Extremities: No clubbing/cyanosis. No edema Behavior: unable to assess Results & Data Results & Data Vital Signs (Past 12 Hours) Vital Signs Temp Pulse Resp BP Pulse Ox O2 Del Method O2 Flow Rate 01/13/23 13:00 114/64 01/13/23 13:00 93 H 20 95 Oxymask 4 01/13/23 12:30 106/57 L 01/13/23 12:30 98 H 26 H 01/13/23 12:15 107/63 01/13/23 12:15 93 H 19 96 01/13/23 12:00 120/54 L 01/13/23 12:00 100 H 26 H 93 01/13/23 12:00 161/60 H 01/13/23 11:45 107/59 L 01/13/23 11:45 94 H 19 96 01/13/23 11:30 95 H 19 94 01/13/23 11:30 110/64 01/13/23 11:15 107/58 L 01/13/23 11:15 100 H 16 94 01/13/23 11:00 108/69 01/13/23 11:00 103 H 17 94 01/13/23 10:45 112/70 01/13/23 10:45 101 H 20 95 01/13/23 10:15 82/59 L 01/13/23 10:15 94 H 26 H 98 01/13/23 10:00 90 23 99 Oxymask 4 01/13/23 10:00 92/61 L 01/13/23 09:45 90/53 L 01/13/23 09:45 97 H 26 H 99 01/13/23 09:44 82/57 L 01/13/23 09:44 96 H 26 H 99 01/13/23 09:40 93 H 23 99 01/13/23 09:30 104/63 01/13/23 09:30 91 H 26 H 100 01/13/23 09:20 85 26 H 100 01/13/23 09:15 121/68 01/13/23 09:15 85 26 H 100 01/13/23 09:00 116/70 01/13/23 09:00 86 26 H 99 01/13/23 08:45 89 26 H 100 01/13/23 08:45 125/71 01/13/23 08:30 100/70 01/13/23 08:30 101 H 26 H 98 01/13/23 08:15 132/80 01/13/23 08:15 98 H 26 H 98 01/13/23 08:09 100 H 22 96 01/13/23 08:09 175/80 H 01/13/23 08:00 Mechanical Vent 01/13/23 08:00 70 01/13/23 08:00 Mechanical Vent 01/13/23 08:00 140 H 27 H 94 01/13/23 08:00 144 H 18 94 01/13/23 07:45 161/96 H 01/13/23 07:45 70 22 99 01/13/23 07:30 146/76 H 01/13/23 07:30 72 22 98 01/13/23 07:15 165/95 H 01/13/23 07:15 71 22 99 01/13/23 07:00 171/90 H 01/13/23 07:00 70 22 98 01/13/23 06:00 143/68 H 01/13/23 06:00 88 19 98 01/13/23 05:45 144/77 H 01/13/23 05:45 71 22 98 01/13/23 05:44 67 154/66 H 01/13/23 05:37 Mechanical Vent 01/13/23 05:30 128/75 01/13/23 05:30 77 22 98 01/13/23 05:15 154/77 H 01/13/23 05:15 92 H 22 97 01/13/23 05:00 78 22 98 01/13/23 05:00 135/72 01/13/23 04:45 121/67 01/13/23 04:45 79 22 98 01/13/23 04:30 81 22 97 01/13/23 04:30 120/69 01/13/23 04:15 123/70 01/13/23 04:15 82 22 95 01/13/23 04:00 113/95 01/13/23 04:00 83 19 97 01/13/23 04:00 37.5 C 01/13/23 03:45 83 22 97 01/13/23 03:45 108/54 L 01/13/23 03:30 82 22 97 01/13/23 03:30 116/61 01/13/23 03:16 80 26 H 97 01/13/23 03:15 110/60 01/13/23 03:14 80 21 97 FiO2 01/13/23 13:00 01/13/23 13:00 01/13/23 12:30 01/13/23 12:30 01/13/23 12:15 01/13/23 12:15 01/13/23 12:00 01/13/23 12:00 01/13/23 12:00 01/13/23 11:45 01/13/23 11:45 01/13/23 11:30 01/13/23 11:30 01/13/23 11:15 01/13/23 11:15 01/13/23 11:00 01/13/23 11:00 01/13/23 10:45 01/13/23 10:45 01/13/23 10:15 01/13/23 10:15 01/13/23 10:00 01/13/23 10:00 01/13/23 09:45 01/13/23 09:45 01/13/23 09:44 01/13/23 09:44 01/13/23 09:40 01/13/23 09:30 01/13/23 09:30 01/13/23 09:20 01/13/23 09:15 01/13/23 09:15 01/13/23 09:00 01/13/23 09:00 01/13/23 08:45 01/13/23 08:45 01/13/23 08:30 01/13/23 08:30 01/13/23 08:15 01/13/23 08:15 01/13/23 08:09 01/13/23 08:09 01/13/23 08:00 40 01/13/23 08:00 01/13/23 08:00 01/13/23 08:00 40 01/13/23 08:00 01/13/23 07:45 01/13/23 07:45 01/13/23 07:30 01/13/23 07:30 01/13/23 07:15 01/13/23 07:15 01/13/23 07:00 01/13/23 07:00 01/13/23 06:00 01/13/23 06:00 01/13/23 05:45 01/13/23 05:45 01/13/23 05:44 01/13/23 05:37 40 01/13/23 05:30 01/13/23 05:30 01/13/23 05:15 01/13/23 05:15 01/13/23 05:00 01/13/23 05:00 01/13/23 04:45 01/13/23 04:45 01/13/23 04:30 01/13/23 04:30 01/13/23 04:15 01/13/23 04:15 01/13/23 04:00 01/13/23 04:00 01/13/23 04:00 01/13/23 03:45 01/13/23 03:45 01/13/23 03:30 01/13/23 03:30 01/13/23 03:16 01/13/23 03:15 01/13/23 03:14 Laboratory Results Abnormal lab results 01/12/23 01/12/23 01/12/23 Range/Units 20:19 21:02 21:07 RBC 2.78 L (4.70-6.10) M/uL Hgb 8.5 L (14.0-18.0) g/dl POC Hgb 8.2 L (14.0-18.0) g/dl Hct 26.1 L (42.0-52.0) % POC Hct 24 L (42-52) % Neut # (Auto) (1.40-6.50) K/uL Lymph # (Auto) 3.62 H (1.20-3.40) K/uL Immature Gran # (Auto) 0.22 H (0.01-0.20) K/uL POC pH 7.32 L (7.35-7.45) POC pCO2 51 H (35-46) mmHg POC pO2 357 H (80-95) mmHg POC HCO3 27 H (19-24) vince/L ABG pH (Temp Correct) 7.337 L (7.35-7.45) ABG pCO2 (Temp Corrct 49 H (35-46) mmHg POC ABG O2 Sat 100.0 H (90-95) % Sodium (136-145) mmol/L Carbon Dioxide (21-32) mmol/L Anion Gap 13 H (3-11) BUN (6-23) mg/dl Creatinine 3.36 H D (0.6-1.4) mg/dl BUN/Creatinine Ratio 6.3 L (10-20) Glucose 213 H (70-99(Fasting)) mg/dl POC Glucose 180 H (70-99) mg/dl Lactate 5.8 H* (0.4-2.0) mmol/L Total Bilirubin (0.2-1.0) mg/dl Direct Bilirubin 0.3 H (0-0.2) mg/dl AST 103 H (13-39) U/L ALT 121 H (7-52) U/L Alkaline Phosphatase 215 H (34-104) U/L Troponin I High Sens 20.2 H (0-20) pg/ml Albumin 2.7 L (3.4-5.0) gm/dl Globulin (2.5-4.0) gm/dl Albumin/Globulin Ratio (0.9-2) 01/13/23 01/13/23 01/13/23 Range/Units 02:19 07:40 13:57 RBC 2.64 L (4.70-6.10) M/uL Hgb 8.0 L (14.0-18.0) g/dl POC Hgb (14.0-18.0) g/dl Hct 23.9 L (42.0-52.0) % POC Hct (42-52) % Neut # (Auto) 8.46 H (1.40-6.50) K/uL Lymph # (Auto) 0.55 L (1.20-3.40) K/uL Immature Gran # (Auto) (0.01-0.20) K/uL POC pH (7.35-7.45) POC pCO2 (35-46) mmHg POC pO2 (80-95) mmHg POC HCO3 (19-24) vince/L ABG pH (Temp Correct) (7.35-7.45) ABG pCO2 (Temp Corrct (35-46) mmHg POC ABG O2 Sat (90-95) % Sodium 134 L (136-145) mmol/L Carbon Dioxide 20 L (21-32) mmol/L Anion Gap 16 H (3-11) BUN 29 H (6-23) mg/dl Creatinine 4.17 H D (0.6-1.4) mg/dl BUN/Creatinine Ratio 7.0 L (10-20) Glucose 353 H* (70-99(Fasting)) mg/dl POC Glucose (70-99) mg/dl Lactate 2.7 H* (0.4-2.0) mmol/L Total Bilirubin 1.2 H D (0.2-1.0) mg/dl Direct Bilirubin (0-0.2) mg/dl AST 85 H (13-39) U/L ALT 122 H (7-52) U/L Alkaline Phosphatase 208 H (34-104) U/L Troponin I High Sens 179.5 H* D 270.9 H* D 317.0 H* (0-20) pg/ml Albumin 2.8 L (3.4-5.0) gm/dl Globulin 4.1 H (2.5-4.0) gm/dl Albumin/Globulin Ratio 0.7 L (0.9-2) Diagnostic Findings Chest X-Ray 01/12/23 14:43 SINGLE VIEW CHEST CLINICAL HISTORY: Dyspnea. Shaking. FINDINGS: An AP, portable, upright chest radiograph is compared to study dated 01/10/2023 and correlated with chest CT dated 09/18/2014. The examination is degraded by portable technique and apical lordotic positioning. A right jugular jugular central venous catheter is unchanged in position. The heart is enlarged. The pulmonary vasculature is noncongested. A stent graft is again seen in the thoracic aorta. Emphysema and chronic interstitial thickening similar to previous. There is bibasilar scarring/atelectasis. The lungs and pleural spaces are otherwise clear. No pneumothorax is seen. The skeletal structures are osteopenic. The bony thorax is grossly intact. IMPRESSION: Cardiomegaly and emphysema with no acute cardiopulmonary abnormality identified. ACT 112: Negative or not required by law. Electronically signed by: Mando Alfonso M.D. 01/12/2023 3:21 PM Chest CTA 01/12/23 15:41 Exam(s): CTA CHEST W/WO Contrast IV Amt: 118 ml opti 320 EXAM: CT Angiography Chest Without and With Intravenous Contrast CLINICAL HISTORY: Reason for exam: Recent thoracic aneurysm repair, now hypotensive. TECHNIQUE: Axial computed tomographic angiography images of the chest without and with intravenous contrast. CTDI is 37.99 mGy and DLP is 4063.15 mGy-cm. Automated exposure control was utilized for the study. A dose lowering technique was utilized adhering to the principles of ALARA. MIP reconstructed images were created and reviewed. CONTRAST: Patient received 118 ml opti 320 of IV contrast COMPARISON: Chest x-ray from January 12, 2023 FINDINGS: Pulmonary arteries: Unremarkable. No pulmonary embolism. Aorta: Previous stent grafting of the distal aortic arch and descending thoracic aorta. The graft is widely patent. The distal thoracic aorta demonstrates a sac measuring up to 4.7 cm. No endograft leakage is seen through the main portion of the graft. There is a trace amount of contrast tracking adjacent to the distal 2 cm of the thoracic graft at the level of the diaphragm. No thoracic aortic aneurysm. Great vessels of aortic arch: Trace amount of calcified plaque at the origin of the left subclavian artery without stenosis. Lungs: Small amount of linear scarring or atelectasis in the right mid to upper lung. Mild emphysematous changes are present. No mass. Pleural space: Unremarkable. No significant effusion. No pneumothorax. Heart: The heart is borderline enlarged. Severe coronary calcification is present. No pericardial effusion. No evidence of RV dysfunction. Thyroid: 2.3 cm right thyroid nodule inferiorly. Bones/joints: Mild multilevel degenerative change are seen throughout the spine. No acute fracture or subluxation is seen. Soft tissues: Unremarkable. Lymph nodes: Unremarkable. No enlarged lymph nodes. IMPRESSION: 1. Previous stent grafting of the distal aortic arch and descending thoracic aorta. The graft is widely patent. The distal thoracic aorta demonstrates a sac measuring up to 4.7 cm. No endograft leakage is seen through the main portion of the graft. There is a trace amount of contrast tracking adjacent to the distal 2 cm of the thoracic graft at the level of the diaphragm. Please see CT angiogram of the abdomen and pelvis. 2. Small amount of linear scarring or atelectasis in the right mid to upper lung. Mild emphysematous changes are present. Electronically signed by: Triston Ricketts MD 01/12/23 21:11 PM Abdomen/Pelvis CTA 01/12/23 16:14 Exam(s): CTA ABDOMEN + PELVIS W/WO Contrast IV Amt: 118 ml opti 320 EXAM: CT Angiography Abdomen and Pelvis Without and With Intravenous Contrast CLINICAL HISTORY: Reason for exam: recent thoracic aneurysm repair. TECHNIQUE: Axial computed tomographic angiography images of the abdomen and pelvis without and with intravenous contrast. CTDI is 37.99 mGy and DLP is 4063. 15 mGy-cm. Automated exposure control was utilized for the study. A dose lowering technique was utilized adhering to the principles of ALARA. MIP reconstructed images were created and reviewed. CONTRAST: Patient received 118 ml opti 320 of IV contrast COMPARISON: No relevant prior studies available. FINDINGS: VASCULATURE: Aorta: There is aneurysmal dilation of the distal thoracic and upper abdominal aorta measuring up to 4.5 cm in diameter. The thoracic graft terminates at the level of the diaphragm. There is a trace amount of contrast tracking along the inferior margin of the thoracic graft. There is an abdominal aortic stent graft in place with bilateral renal small goals. The grafts and stents are widely patent. The residual aneurysm sac in the infrarenal portion measures 3 cm. No endograft leakage or extravasation is seen. No dissection. Celiac trunk and mesenteric arteries: No acute findings. No occlusion or significant stenosis. Renal arteries: No acute findings. No occlusion or significant stenosis. Iliac arteries: There is a left external iliac artery stent which is widely patent. No occlusion or significant stenosis. 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 Calcified plaque causing 30% stenosis of the right common femoral artery. Lung bases: Unremarkable. No mass. No consolidation. ABDOMEN: Liver: There is mild fatty infiltration of the liver. No focal liver lesion is seen. Gallbladder and bile ducts: Unremarkable. No calcified stones. No ductal dilation. Pancreas: Unremarkable. No ductal dilation. No mass. Spleen: Unremarkable. No splenomegaly. Adrenals: Unremarkable. No mass. Kidneys and ureters: There are several simple cysts measuring up to 3. 1 cm in the lower pole the right kidney. No hydronephrosis or ureterolithiasis is seen. Stomach and bowel: There is diverticulosis throughout the colon. No evidence of acute diverticulitis. No acute inflammatory changes are seen involving the bowel. No obstruction. PELVIS: Appendix: No findings to suggest acute appendicitis. Bladder: Unremarkable. No stones. No mass. Reproductive: Unremarkable as visualized. ABDOMEN and PELVIS: Intraperitoneal space: Unremarkable. No significant fluid collection. No free air. Bones/joints: Mild to moderate spine. No acute fracture or subluxation is seen. Soft tissues: Unremarkable. Lymph nodes: Unremarkable. No enlarged lymph nodes. IMPRESSION: 1. 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 2. 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 The thoracic graft terminates at the level of the diaphragm. There is a trace amount of contrast tracking along the inferior margin of the thoracic graft. There is an abdominal aortic stent graft in place with bilateral renal small goals. The grafts and stents are widely patent. The residual aneurysm sac in the infrarenal portion measures 3 cm. No endograft leakage or extravasation is seen. 3. There is diverticulosis throughout the colon. No evidence of acute diverticulitis. No acute inflammatory changes are seen involving the bowel. Electronically signed by: Triston Ricketts MD 01/12/23 21:22 PM Chest X-Ray 01/12/23 20:26 SINGLE VIEW CHEST CLINICAL HISTORY: Respiratory failure. Intubation. FINDINGS: An AP, portable, supine chest radiograph is compared to chest x-ray and chest CT performed earlier the same day 01/12/2023. The examination is degraded by portable technique, patient rotation, and apical lordotic positioning. An electronic device partially obscures the right lateral lung base. An endotracheal tube has been placed. The tip projects 2.5 cm above the gerson. An enteric tube has been placed. The tip projects below the diaphragm and is not visualized. A right jugular jugular central venous catheter is unchanged in position. The heart is enlarged. The pulmonary vasculature is noncongested. A stent graft is again seen in the thoracic aorta. Emphysema and chronic interstitial thickening similar to previous. There is bibasilar scarring/atelectasis. The lungs and pleural spaces are otherwise clear. No pneumothorax is seen. The skeletal structures are osteopenic. The bony thorax is grossly intact. IMPRESSION: 1. Endotracheal and enteric tubes have been placed as above. 2. Cardiomegaly and emphysema with no acute cardiopulmonary abnormality identified. ACT 112: Negative or not required by law. Electronically signed by: Mando Alfonso M.D. 01/13/2023 7:[address] 01/12/23 21:54 Exam(s): CT HEAD Without Contrast EXAM: CT Head Without Intravenous Contrast CLINICAL HISTORY: Reason for exam: unresponsive. TECHNIQUE: Axial computed tomography images of the head/brain without intravenous contrast. Automated exposure control was utilized for the study. A dose lowering technique was utilized adhering to the principles of ALARA. COMPARISON: March 29, 2022 FINDINGS: Brain: Mild diffuse cerebral atrophy and periventricular white matter low density consistent with chronic small vessel disease and/or senescent changes, unchanged. No acute large vessel infarct or intracranial hemorrhage is seen. There is contrast from recent CT angiogram. Ventricles: Mildly enlarged. No mass or hemorrhage. Bones/joints: Unremarkable. No acute fracture. Soft tissues: Unremarkable. Sinuses: Gas fluid levels involving the maxillary, sphenoid, and ethmoid sinuses suggesting acute sinusitis. Mastoid air cells: Unremarkable as visualized. No mastoid effusion. IMPRESSION: 1. Gas fluid levels involving the maxillary, sphenoid, and ethmoid sinuses suggesting acute sinusitis. 2. Mild diffuse cerebral atrophy and periventricular white matter low density consistent with chronic small vessel disease and/or senescent changes, unchanged. No acute large vessel infarct or intracranial hemorrhage is seen. There is contrast from recent CT angiogram. Electronically signed by: Triston Ricketts MD 01/12/23 22:57 PM PG Care Time/CCT Total # of Minutes Spent Total Time Spent with Patient: Total time spent is greater than 50% in coordination of care (as documented) at patient's floor/unit and/or counseling patient: Coding Level of Care Code 02529 SUB INP/OBS CARE 2/35MIN Diagnoses Ambulatory dysfunction R26.2 Generalized weakness R53.1 ESRD (end stage renal disease) on dialysis N18.6; Z99.2 History of thoracic aortic aneurysm repair Z98.890; Z86.79 Renal cell carcinoma C64.9 GERD (gastroesophageal reflux disease) K21.9 Hypertension I10 Diabetes mellitus, type 2 E11.9 CAD (coronary artery disease) I25.10 Malignant neoplasm of prostate C61
--- NOTE | 2023-01-13 15:31 | Cardiology Progress Note ---
Date of Service January 13, 2023 Assessment & Plan (1) History of thoracic aortic aneurysm repair: (2) Atrial fibrillation: (3) CAD (coronary artery disease): Plan 1. Atrial fibrillation: He converted spontaneously to a sinus rhythm prior to his event last night. I think he can continue on his metoprolol. At some point anticoagulation with Eliquis 2.5 mg twice daily can be considered. This is not an urgent matter and can be deferred until his some of his acute issues resolve. 2. Coronary artery disease: Remote history of PCI likely to the RCA in 2000. No current symptoms suggestive of coronary insufficiency or angina. Continue aggressive secondary prevention with anti-platelet agents and simvastatin 3. Thoracic aortic dissection: Status post recent stent procedure. No current symptoms of back pain. Good perfusion of both lower extremities. Normotensive. CT scan of the thorax and abdomen did not reveal any evidence of leakage. 4. Elevated troponin: Elevated biomarkers in the setting of hypotension and bradycardia last evening. I do not think this is indicative of an acute coronary syndrome. Supportive treatment. 5. Bradycardia: In the setting of his presumed hypercapnic arrest. Also suspect there was an element of high vagal tone given the circumstances and associated hypotension. Normal heart rates currently. No history of symptomatic bradycardia. Bradycardia was all sinus and quite mild. I do not think this is a current indication for a pacemaker. 6. Cardiac arrest: His event occurred after administration of contrast. While this may not represent an allergy or reaction to contrast per se, it is very possible this triggered a vagal response. He was hypotensive, bradycardic and apparently somewhat disoriented. This morning he seems to be feeling well without any particular residual symptoms. Admission and Anticipated Discharge Date Admission Date: January 10, 2023 Subjective This afternoon the patient claimed he feeling well. He had some cough and a mild sore throat. He did not report any current abdominal pain. No breathing difficulty. Some mild chest discomfort with movement. No discomfort with deep inspiration. No pain in lower extremities. Review of Systems Review of Systems: Per HPI Physical Exam Physical Exam: The patient is alert and oriented. Mood and affect appeared normal. He answered all questions appropriately. HEENT: Pupils are equal and reactive to light and accommodation. Extraocular movements are intact. The sclerae are anicteric. Neuro: Cranial nerves intact Lungs: Clear to auscultation bilaterally. He has good air movement without use of accessory muscle some coarse upper respiratory sounds. Cardiac: Heart demonstrates a regular rate and rhythm. Normal S1 and S2. No murmurs on examination. Pulses: The patient has palpable radial pulses bilaterally that are equal in intensity. Palpable dorsalis pedis pulses bilaterally. Good perfusion of the lower extremities. Extremities: There was no evidence of hypoperfusion. There is no cyanosis or clubbing. There is no edema. Skin: I did not appreciate any rashes on examination today. Results & Data Vital Signs (Past 12 Hours) Vital Signs Temp Pulse Resp BP Pulse Ox O2 Del Method O2 Flow Rate 01/13/23 13:00 114/64 01/13/23 13:00 93 H 20 95 Oxymask 4 01/13/23 12:30 106/57 L 01/13/23 12:30 98 H 26 H 01/13/23 12:15 107/63 01/13/23 12:15 93 H 19 96 01/13/23 12:00 120/54 L 01/13/23 12:00 100 H 26 H 93 01/13/23 12:00 161/60 H 01/13/23 11:45 107/59 L 01/13/23 11:45 94 H 19 96 01/13/23 11:30 95 H 19 94 01/13/23 11:30 110/64 01/13/23 11:15 107/58 L 01/13/23 11:15 100 H 16 94 01/13/23 11:00 108/69 01/13/23 11:00 103 H 17 94 01/13/23 10:45 112/70 01/13/23 10:45 101 H 20 95 01/13/23 10:15 82/59 L 01/13/23 10:15 94 H 26 H 98 01/13/23 10:00 90 23 99 Oxymask 4 01/13/23 10:00 92/61 L 01/13/23 09:45 90/53 L 01/13/23 09:45 97 H 26 H 99 01/13/23 09:44 82/57 L 01/13/23 09:44 96 H 26 H 99 01/13/23 09:40 93 H 23 99 01/13/23 09:30 104/63 01/13/23 09:30 91 H 26 H 100 01/13/23 09:20 85 26 H 100 01/13/23 09:15 121/68 01/13/23 09:15 85 26 H 100 01/13/23 09:00 116/70 01/13/23 09:00 86 26 H 99 01/13/23 08:45 89 26 H 100 01/13/23 08:45 125/71 01/13/23 08:30 100/70 01/13/23 08:30 101 H 26 H 98 01/13/23 08:15 132/80 01/13/23 08:15 98 H 26 H 98 01/13/23 08:09 100 H 22 96 01/13/23 08:09 175/80 H 01/13/23 08:00 Mechanical Vent 01/13/23 08:00 70 01/13/23 08:00 Mechanical Vent 01/13/23 08:00 140 H 27 H 94 01/13/23 08:00 144 H 18 94 01/13/23 07:45 161/96 H 01/13/23 07:45 70 22 99 01/13/23 07:30 146/76 H 01/13/23 07:30 72 22 98 01/13/23 07:15 165/95 H 01/13/23 07:15 71 22 99 01/13/23 07:00 171/90 H 01/13/23 07:00 70 22 98 01/13/23 06:00 143/68 H 01/13/23 06:00 88 19 98 01/13/23 05:45 144/77 H 01/13/23 05:45 71 22 98 01/13/23 05:44 67 154/66 H 01/13/23 05:37 Mechanical Vent 01/13/23 05:30 128/75 01/13/23 05:30 77 22 98 01/13/23 05:15 154/77 H 01/13/23 05:15 92 H 22 97 01/13/23 05:00 78 22 98 01/13/23 05:00 135/72 01/13/23 04:45 121/67 01/13/23 04:45 79 22 98 01/13/23 04:30 81 22 97 01/13/23 04:30 120/69 01/13/23 04:15 123/70 01/13/23 04:15 82 22 95 01/13/23 04:00 113/95 01/13/23 04:00 83 19 97 01/13/23 04:00 37.5 C 01/13/23 03:45 83 22 97 01/13/23 03:45 108/54 L 01/13/23 03:30 82 22 97 01/13/23 03:30 116/61 FiO2 01/13/23 13:00 01/13/23 13:00 01/13/23 12:30 01/13/23 12:30 01/13/23 12:15 01/13/23 12:15 01/13/23 12:00 01/13/23 12:00 01/13/23 12:00 01/13/23 11:45 01/13/23 11:45 01/13/23 11:30 01/13/23 11:30 01/13/23 11:15 01/13/23 11:15 01/13/23 11:00 01/13/23 11:00 01/13/23 10:45 01/13/23 10:45 01/13/23 10:15 01/13/23 10:15 01/13/23 10:00 01/13/23 10:00 01/13/23 09:45 01/13/23 09:45 01/13/23 09:44 01/13/23 09:44 01/13/23 09:40 01/13/23 09:30 01/13/23 09:30 01/13/23 09:20 01/13/23 09:15 01/13/23 09:15 01/13/23 09:00 01/13/23 09:00 01/13/23 08:45 01/13/23 08:45 01/13/23 08:30 01/13/23 08:30 01/13/23 08:15 01/13/23 08:15 01/13/23 08:09 01/13/23 08:09 01/13/23 08:00 40 01/13/23 08:00 01/13/23 08:00 01/13/23 08:00 40 01/13/23 08:00 01/13/23 07:45 01/13/23 07:45 01/13/23 07:30 01/13/23 07:30 01/13/23 07:15 01/13/23 07:15 01/13/23 07:00 01/13/23 07:00 01/13/23 06:00 01/13/23 06:00 01/13/23 05:45 01/13/23 05:45 01/13/23 05:44 01/13/23 05:37 40 01/13/23 05:30 01/13/23 05:30 01/13/23 05:15 01/13/23 05:15 01/13/23 05:00 01/13/23 05:00 01/13/23 04:45 01/13/23 04:45 01/13/23 04:30 01/13/23 04:30 01/13/23 04:15 01/13/23 04:15 01/13/23 04:00 01/13/23 04:00 01/13/23 04:00 01/13/23 03:45 01/13/23 03:45 01/13/23 03:30 01/13/23 03:30 Laboratory Results Abnormal Lab Results 01/12/23 01/12/23 01/12/23 17:48 20:19 21:02 WBC 10.30 RBC 2.78 L Hgb 8.5 L POC Hgb Hct 26.1 L POC Hct MCV 93.9 MCH 30.6 MCHC 32.6 RDW Std Deviation 43.4 RDW Coeff of Gennaro 12.6 Plt Count 222 MPV 10.9 Immature Gran % (Auto) 2.1 Neut % (Auto) 55.5 Lymph % (Auto) 35.1 Hitchcock % (Auto) 4.6 Eos % (Auto) 2.4 Baso % (Auto) 0.3 Neut # (Auto) 5.71 Lymph # (Auto) 3.62 H Hitchcock # (Auto) 0.47 Eos # (Auto) 0.25 Baso # (Auto) 0.03 Immature Gran # (Auto) 0.22 H PT 11.7 INR 1.1 Sample Site POC pH POC pCO2 POC pO2 POC HCO3 POC Total CO2 POC Base Excess ABG pH (Temp Correct) ABG pCO2 (Temp Corrct POC ABG pO2 at Pt Temp POC ABG O2 Sat Logan Test O2 Delivery Device POC O2 Rate POC FiO2 Tidal Volume PEEP POC Sodium Sodium 138 POC Potassium Potassium 4.0 Chloride 100 Carbon Dioxide 25 Anion Gap 13 H BUN 21 Creatinine 3.36 H D Est Cr Clr Drug Dosing 20.5 Est GFR ( Amer) 19.9 Est GFR (Non-Af Amer) 17.2 BUN/Creatinine Ratio 6.3 L Glucose 213 H POC Glucose 99 180 H Lactate 5.8 H* Calcium 10.3 Phosphorus Magnesium Total Bilirubin 0.6 Direct Bilirubin 0.3 H AST 103 H ALT 121 H Alkaline Phosphatase 215 H Troponin I High Sens 20.2 H Total Protein 6.5 Albumin 2.7 L Globulin Albumin/Globulin Ratio Nasal Screen MRSA (PCR) 01/12/23 01/12/23 01/13/23 21:07 21:15 02:19 WBC 9.54 RBC 2.64 L Hgb 8.0 L POC Hgb 8.2 L Hct 23.9 L POC Hct 24 L MCV 90.5 MCH 30.3 MCHC 33.5 RDW Std Deviation 41.1 RDW Coeff of Gennaro 12.6 Plt Count 248 MPV 10.7 Immature Gran % (Auto) 0.9 Neut % (Auto) 88.7 Lymph % (Auto) 5.8 Hitchcock % (Auto) 4.4 Eos % (Auto) 0.1 Baso % (Auto) 0.1 Neut # (Auto) 8.46 H Lymph # (Auto) 0.55 L Hitchcock # (Auto) 0.42 Eos # (Auto) 0.01 Baso # (Auto) 0.01 Immature Gran # (Auto) 0.09 PT INR Sample Site L Radial POC pH 7.32 L POC pCO2 51 H POC pO2 357 H POC HCO3 27 H POC Total CO2 28 POC Base Excess 0.0 ABG pH (Temp Correct) 7.337 L ABG pCO2 (Temp Corrct 49 H POC ABG pO2 at Pt Temp 352 POC ABG O2 Sat 100.0 H Logan Test Pass O2 Delivery Device Ventilator POC O2 Rate 26 POC FiO2 100 Tidal Volume 450 PEEP 8 POC Sodium 138 Sodium 134 L POC Potassium 3.9 Potassium 4.5 Chloride 98 Carbon Dioxide 20 L Anion Gap 16 H BUN 29 H Creatinine 4.17 H D Est Cr Clr Drug Dosing 16.5 Est GFR ( Amer) 15.3 Est GFR (Non-Af Amer) 13.2 BUN/Creatinine Ratio 7.0 L Glucose 353 H* POC Glucose Lactate 2.7 H* Calcium 9.2 Phosphorus 4.5 Magnesium 1.8 Total Bilirubin 1.2 H D Direct Bilirubin AST 85 H ALT 122 H Alkaline Phosphatase 208 H Troponin I High Sens 179.5 H* D Total Protein 6.9 Albumin 2.8 L Globulin 4.1 H Albumin/Globulin Ratio 0.7 L Nasal Screen MRSA (PCR) Negative 01/13/23 01/13/23 01/13/23 05:06 07:40 11:09 WBC RBC Hgb POC Hgb Hct POC Hct MCV MCH MCHC RDW Std Deviation RDW Coeff of Gennaro Plt Count MPV Immature Gran % (Auto) Neut % (Auto) Lymph % (Auto) Hitchcock % (Auto) Eos % (Auto) Baso % (Auto) Neut # (Auto) Lymph # (Auto) Hitchcock # (Auto) Eos # (Auto) Baso # (Auto) Immature Gran # (Auto) PT INR Sample Site POC pH POC pCO2 POC pO2 POC HCO3 POC Total CO2 POC Base Excess ABG pH (Temp Correct) ABG pCO2 (Temp Corrct POC ABG pO2 at Pt Temp POC ABG O2 Sat Logan Test O2 Delivery Device POC O2 Rate POC FiO2 Tidal Volume PEEP POC Sodium Sodium POC Potassium Potassium Chloride Carbon Dioxide Anion Gap BUN Creatinine Est Cr Clr Drug Dosing Est GFR ( Amer) Est GFR (Non-Af Amer) BUN/Creatinine Ratio Glucose POC Glucose 91 Lactate 1.7 Calcium Phosphorus Magnesium Total Bilirubin Direct Bilirubin AST ALT Alkaline Phosphatase Troponin I High Sens 270.9 H* D Total Protein Albumin Globulin Albumin/Globulin Ratio Nasal Screen MRSA (PCR) 01/13/23 13:57 WBC RBC Hgb POC Hgb Hct POC Hct MCV MCH MCHC RDW Std Deviation RDW Coeff of Gennaro Plt Count MPV Immature Gran % (Auto) Neut % (Auto) Lymph % (Auto) Hitchcock % (Auto) Eos % (Auto) Baso % (Auto) Neut # (Auto) Lymph # (Auto) Hitchcock # (Auto) Eos # (Auto) Baso # (Auto) Immature Gran # (Auto) PT INR Sample Site POC pH POC pCO2 POC pO2 POC HCO3 POC Total CO2 POC Base Excess ABG pH (Temp Correct) ABG pCO2 (Temp Corrct POC ABG pO2 at Pt Temp POC ABG O2 Sat Logan Test O2 Delivery Device POC O2 Rate POC FiO2 Tidal Volume PEEP POC Sodium Sodium POC Potassium Potassium Chloride Carbon Dioxide Anion Gap BUN Creatinine Est Cr Clr Drug Dosing Est GFR ( Amer) Est GFR (Non-Af Amer) BUN/Creatinine Ratio Glucose POC Glucose Lactate Calcium Phosphorus Magnesium Total Bilirubin Direct Bilirubin AST ALT Alkaline Phosphatase Troponin I High Sens 317.0 H* Total Protein Albumin Globulin Albumin/Globulin Ratio Nasal Screen MRSA (PCR) Diagnostic Findings 01/13/2023: Systolic function with ejection fraction 60 65%. LVH. Aortic valve sclerosis without stenosis. PG Care Time/CCT Total # of Minutes Spent Total Time Spent with Patient: Total time spent is greater than 50% in coordination of care (as documented) at patient's floor/unit and/or counseling patient: Coding Level of Care Code 58447 SUB INP/OBS CARE 3/50MIN Diagnoses History of thoracic aortic aneurysm repair Z98.890; Z86.79 Atrial fibrillation I48.91 CAD (coronary artery disease) I25.10
[2023-01-13] MEDS: ACETAMINOPHEN 325 MG TAB PO PRN (16:42)
[2023-01-13 17:16] LABS: A calco-baum cmplx NotReported Not Detected (NotDetected); Bact fragilis Not Reported Not Detected (NotDetected); C auris Not Reported Not Detected (NotDetected); Calbicans Not Reported Not Detected (NotDetected); Candida glabrata Not Reported Not Detected (NotDetected); Candida krusei Not Reported Not Detected (NotDetected); Cneoformans/gatti Not Reported Not Detected (NotDetected); Cparapsilosis Not Reported Not Detected (NotDetected); E cloacae compx Not Reported Not Detected (NotDetected); Efaecalis Not Reported Not Detected (NotDetected); Efaecium Not Reported Not Detected (NotDetected); Enterobacterales Not Reported Not Detected (NotDetected); Escherichia coli Not Reported Not Detected (NotDetected); H influenzae Not Reported Not Detected (NotDetected); K aerogenes Not Reported Not Detected (NotDetected); Koxytoca Not Reported Not Detected (NotDetected); Kpneumoniae grp Not Reported Not Detected (NotDetected); Lmonocyt Not Reported Not Detected (NotDetected); N meningitidis Not Reported Not Detected (NotDetected); P aeruginosa Not Reported Not Detected (NotDetected); Proteus spp Not Reported Not Detected (NotDetected); Salmonella spp Not Reported Not Detected (NotDetected); Smarcescens Not Reported Not Detected (NotDetected); Staph lugdunensis Not Reported Not Detected (NotDetected); Staph spp. Not Reported DETECTED (NotDetected); Staphaureus Not Reported Not Detected (NotDetected); Staphepi Not Reported DETECTED (NotDetected); Stenmaltophilia Not Reported Not Detected (NotDetected); Strep agal(GrpB) Not Reported Not Detected (NotDetected); Strep pneum Not Reported Not Detected (NotDetected); Strep pyog (GrpA) Not Reported Not Detected (NotDetected); Strep spp Not Reported Not Detected (NotDetected)
[2023-01-13 17:39] LABS: Staphylococcus epidermidis DETECTED (NotDetected); Staphylococcus spp. DETECTED (NotDetected); mecAC Resistant Gene DETECTED (NotDetected)
[2023-01-13] MEDS ORDERED: ETOMIDATE 2 MG/ML 20 ML VIAL IV ONE (17:52)
[2023-01-13] MEDS ORDERED: ROCURONIUM BROMIDE 10 MG/ML 5 ML VIAL IV ONE (17:52)
[2023-01-13] MEDS ORDERED: SODIUM CHLORIDE 0.9% 10ML FLUSH IV ONE (17:52)
[2023-01-13] MEDS ORDERED: CALCIUM CHLORIDE 10% 10 ML SYR IV ONE (17:52)
[2023-01-13] MEDS ORDERED: LIDOCAINE 5% 1 PATCH TD STA (20:16)
[2023-01-14 04:26] LABS: Hematocrit (blood only) 19.8 % (42.0-52.0); Hemoglobin 6.7 g/dl (14.0-18.0); Mean Corpuscular Hemoglobin 30.2 pg (25.0-34.0); Mean Corpuscular Hgb Conc 33.8 g/dL (32.0-36.0); Mean Corpuscular Volume 89.2 fL (80.0-100.0); Mean Platelet Volume 10.8 fL (9.4-12.4); Platelet Count 182 K/uL (130-400); RDW Coefficient of Variation 12.7 % (11.5-14.5); RDW Standard Deviation 41.6 fL (36.4-46.3); Red Blood Count 2.22 M/uL (4.70-6.10)
[2023-01-14 04:52] LABS: Albumin Level 2.7 gm/dl (3.4-5.0); BUN Creatinine Ratio 7.6 (10-20); Calcium 8.5 mg/dl (8.6-10.3); Est GFR (African American) 9.5 ml/min; Est GFR (Non-African American) 8.2 ml/min; Magnesium 1.8 mg/dl (1.7-2.4); Phosphorus 5.2 mg/dl (2.5-4.9); Potassium 4.3 mmol/L (3.5-5.1)
[2023-01-14] MEDS ORDERED: SODIUM CHLORIDE 0.9% 250 ML IV PRN (05:39)
[2023-01-14] MEDS: MAGNESIUM SULFATE / D5W 1 GM/100 ML BAG IV SCH ×2 (06:12→07:49)
[2023-01-14] MEDS: ACETAMINOPHEN 325 MG TAB PO PRN ×3 (06:33→19:58)
[2023-01-14] MEDS: FORMOTEROL 20 MCG/2 ML VIAL NEB SCH (06:49)
[2023-01-14] MEDS: BUDESONIDE 0.25 MG/2 ML VIAL (PULMICORT) NEB SCH (06:49)
[2023-01-14] MEDS: ASPIRIN 81 MG ECTAB PO SCH (07:42)
[2023-01-14] MEDS: CLOPIDOGREL BISULFATE 75 MG TAB PO SCH (07:42)
[2023-01-14] MEDS: HEPARIN SOD 5,000 UNIT/0.5 ML VIAL SQ SCH ×2 (07:43→19:57)
[2023-01-14] MEDS: INSULIN ASPART PER UNIT CHARGE SC SCH ×4 (07:51→19:57)
[2023-01-14] MEDS: POLYETHYLENE (MIRALAX) 17 GM PACK PO SCH ×2 (07:52→19:58)
[2023-01-14 08:23] LABS: Reticulocyte % 2.1 % (0.5-2.0); Reticulocytes # 0.05 10^6/uL (0.02-0.10)
[2023-01-14 08:58] LABS: Folate (Folic Acid),Ser orPlas 6.53 ng/ml (>5.38)
--- NOTE | 2023-01-14 09:47 | Nephrology Progress Note ---
Date of Service January 14, 2023 Assessment & Plan (1) CAROLINA (acute kidney injury): Plan: Dialysis dependent CAROLINA. CAR[place]INA attributed to bilateral renal infarcts initially with superimposed ATN. Urine output improving but remains relatively oliguric. Orders for HD today entered into the EHR and reviewed with pony roll finisher. Medications appropriate for kidney function. (2) History of thoracic aortic aneurysm repair: Plan: CTA reviewed yesterday. Vascular consult appreciated. (3) Respiratory arrest: Plan: Remains ventilator dependent. (4) Cardiac arrest: Plan: MAP goal >65. (5) Anemia: Plan: H/H dropped overnight. No obvious source of blood loss. 1 u PRBC transfusion support ordered for this AM. Epogen [id number] units will be provided with HD. Q8 H/H ordered for monitoring. Check iron profile in the AM. Admission and Anticipated Discharge Date Admission Date: January 10, 2023 Subjective No acute events overnight. Extubated successfully yesterday. Yaron was seen and evaluated in the ICU this morning. He was slightly disoriented. Yaron does not recall any events of his hospitalization. He told me that he thought that he was still at [facility]. He seemed to recall being admitted to [facility] Tuesday evening after we reviewed the events of his hospital course. He told me that he wants to keep going and always keep fighting for his grandchildren. He was receptive to HD today. He denies chest pains or palpitations. He denies shortness of breath. No fevers or chills. Review of Systems Review of Systems: All systems reviewed & are unremarkable except as noted in HPI & below Physical Exam Constitutional: well developed; no acute distress Eyes: no scleral abnormality and no corneal abnormality ENMT: Mouth: no oral mucosal abnormality and oral mucous membranes not dry Neck: normal visual inspection and trachea midline Respiratory: normal respiratory effort Auscultation: lungs clear to auscultation bilaterally Cardiovascular: Rate/Rhythm: + irregularly irregular Heart Sounds: normal S1 and normal S2 Extremities: no edema Musculoskeletal: Extremities: no cyanosis and no clubbing Skin: normal turgor; no lesions Neurologic: + not awake Motor/Sensory: no tremor and no asterixis Psychiatric: Orientation: alert and oriented x 3 Genitourinary: [place] with light yellow urine in bag Results & Data Vital Signs (Past 12 Hours) Vital Signs Temp Pulse Pulse Resp BP BP Pulse Ox 01/14/23 06:49 100 H 17 94 01/14/23 06:15 107 H 23 88 L 01/14/23 06:00 101 H 24 128/77 95 01/14/23 05:54 128/77 01/14/23 05:54 99 H 18 87 L 01/14/23 05:45 99 H 26 H 98 01/14/23 05:31 109 H 46 H 95 01/14/23 05:30 111 H 24 84 L 01/14/23 05:15 99 H 32 H 134/73 99 01/14/23 05:00 134/73 01/14/23 05:00 99 H 26 H 99 01/14/23 04:45 100 H 27 H 96 01/14/23 04:30 96 H 24 96 01/14/23 04:15 95 H 18 86 L 01/14/23 04:00 119/75 01/14/23 04:00 96 H 24 119/75 96 01/14/23 03:52 36.8 C 99 H 27 H 129/81 95 01/14/23 03:47 102 H 160/57 H 01/14/23 03:45 83 20 92 01/14/23 03:30 129/81 01/14/23 03:30 95 H 24 100 01/14/23 03:15 100 H 12 96 01/14/23 03:00 93 H 26 H 129/81 98 01/14/23 02:45 94 H 24 99 01/14/23 02:30 92 H 24 96 01/14/23 02:15 105 H 25 H 98 01/14/23 02:00 93 H 24 116/70 96 01/14/23 01:45 98 H 20 93 01/14/23 01:30 116/70 01/14/23 01:30 99 H 32 H 100 01/14/23 01:15 92 H 23 98 01/14/23 01:00 95 H 32 H 125/66 91 01/14/23 01:00 125/66 01/14/23 00:45 95 H 23 98 01/14/23 00:31 100 H 20 114/68 96 01/14/23 00:31 114/68 01/14/23 00:30 96 H 22 94 01/14/23 00:15 94 H 22 88 L 01/14/23 00:00 94 H 18 01/14/23 00:00 94 H 01/14/23 00:00 36.6 C 96 H 23 117/66 97 01/14/23 00:00 101 H 154/56 H 01/13/23 23:45 94 H 22 99 01/13/23 23:30 93 H 23 97 01/13/23 23:15 96 H 22 99 01/13/23 23:00 92 H 20 98 01/13/23 22:45 92 H 21 98 01/13/23 22:30 97 H 22 95 01/13/23 22:15 102 H 19 115/61 96 01/13/23 22:00 115/61 01/13/23 22:00 97 H 24 95 01/13/23 21:45 98 H 20 96 O2 Del Method O2 Flow Rate 01/14/23 06:49 Nasal Cannula 3 01/14/23 06:15 01/14/23 06:00 01/14/23 05:54 01/14/23 05:54 01/14/23 05:45 01/14/23 05:31 01/14/23 05:30 01/14/23 05:15 01/14/23 05:00 01/14/23 05:00 01/14/23 04:45 01/14/23 04:30 01/14/23 04:15 01/14/23 04:00 01/14/23 04:00 01/14/23 03:52 Nasal Cannula 2 01/14/23 03:47 01/14/23 03:45 01/14/23 03:30 01/14/23 03:30 01/14/23 03:15 01/14/23 03:00 01/14/23 02:45 01/14/23 02:30 01/14/23 02:15 01/14/23 02:00 01/14/23 01:45 01/14/23 01:30 01/14/23 01:30 01/14/23 01:15 01/14/23 01:00 01/14/23 01:00 01/14/23 00:45 01/14/23 00:31 01/14/23 00:31 01/14/23 00:30 01/14/23 00:15 01/14/23 00:00 01/14/23 00:00 01/14/23 00:00 Nasal Cannula 2 01/14/23 00:00 01/13/23 23:45 01/13/23 23:30 01/13/23 23:15 01/13/23 23:00 01/13/23 22:45 01/13/23 22:30 01/13/23 22:15 01/13/23 22:00 01/13/23 22:00 01/13/23 21:45 Laboratory Results Laboratory Results - last 24 hr 01/12/23 01/13/23 01/13/23 15:48 11:09 13:57 WBC RBC Hgb Hct MCV MCH MCHC RDW Std Deviation RDW Coeff of Gennaro Plt Count MPV Reticulocyte % (Auto) Reticulocyte # Sodium Potassium Chloride Carbon Dioxide Anion Gap BUN Creatinine Est Cr Clr Drug Dosing Est GFR ( Amer) Est GFR (Non-Af Amer) BUN/Creatinine Ratio Glucose POC Glucose 91 Calcium Phosphorus Magnesium Iron Transferrin Ferritin Troponin I High Sens 317.0 H* Albumin Vitamin B12 Folate Staphylococcus sp PCR DETECTED A mecA/C-Methicil Resis Gene DETECTED A Staph epidermidis (PCR) DETECTED A Bld Cult ID Panel PCR See PCR Comment Blood Type Antibody Screen Crossmatch 01/13/23 01/13/23 01/13/23 16:04 20:06 22:25 WBC RBC Hgb Hct MCV MCH MCHC RDW Std Deviation RDW Coeff of Gennaro Plt Count MPV Reticulocyte % (Auto) Reticulocyte # Sodium Potassium Chloride Carbon Dioxide Anion Gap BUN Creatinine Est Cr Clr Drug Dosing Est GFR ( Amer) Est GFR (Non-Af Amer) BUN/Creatinine Ratio Glucose POC Glucose 156 H 147 H Calcium Phosphorus Magnesium Iron Transferrin Ferritin Troponin I High Sens 206.5 H* D Albumin Vitamin B12 Folate Staphylococcus sp PCR mecA/C-Methicil Resis Gene Staph epidermidis (PCR) Bld Cult ID Panel PCR Blood Type Antibody Screen Crossmatch 01/14/23 01/14/23 01/14/23 03:36 03:36 06:03 WBC 8.00 RBC 2.22 L Hgb 6.7 L* Hct 19.8 L* MCV 89.2 MCH 30.2 MCHC 33.8 RDW Std Deviation 41.6 RDW Coeff of Gennaro 12.7 Plt Count 182 MPV 10.8 Reticulocyte % (Auto) 2.1 H Reticulocyte # 0.05 Sodium 137 Potassium 4.3 Chloride 99 Carbon Dioxide 27 Anion Gap 11 BUN 47 H Creatinine 6.18 H* D Est Cr Clr Drug Dosing 11.0 Est GFR ( Amer) 9.5 Est GFR (Non-Af Amer) 8.2 BUN/Creatinine Ratio 7.6 L Glucose 158 H POC Glucose Calcium 8.5 L Phosphorus 5.2 H Magnesium 1.8 Iron 106 Transferrin 117 L Ferritin 2664.0 H Troponin I High Sens Albumin 2.7 L Vitamin B12 640 Folate Cancelled 6.53 Staphylococcus sp PCR mecA/C-Methicil Resis Gene Staph epidermidis (PCR) Bld Cult ID Panel PCR Blood Type A Positive Antibody Screen NEGATIVE Crossmatch See Detail 01/14/23 07:24 WBC RBC Hgb Hct MCV MCH MCHC RDW Std Deviation RDW Coeff of Gennaro Plt Count MPV Reticulocyte % (Auto) Reticulocyte # Sodium Potassium Chloride Carbon Dioxide Anion Gap BUN Creatinine Est Cr Clr Drug Dosing Est GFR ( Amer) Est GFR (Non-Af Amer) BUN/Creatinine Ratio Glucose POC Glucose 177 H Calcium Phosphorus Magnesium Iron Transferrin Ferritin Troponin I High Sens Albumin Vitamin B12 Folate Staphylococcus sp PCR mecA/C-Methicil Resis Gene Staph epidermidis (PCR) Bld Cult ID Panel PCR Blood Type Antibody Screen Crossmatch PG Care Time/CCT Total # of Minutes Spent Total Time Spent with Patient: Total time spent is greater than 50% in coordination of care (as documented) at patient's floor/unit and/or counseling patient: Coding Level of Care Code 59298 SUB INP/OBS CARE 3/50MIN Diagnoses [place] (acute kidney injury) N17.9 History of thoracic aortic aneurysm repair Z98.890; Z86.79 Respiratory arrest R09.2 Cardiac arrest I46.9 Anemia D64.9
--- NOTE | 2023-01-14 09:48 | Critical Care Progress Note ---
Date of Service January 14, 2023 Assessment & Plan (1) Cardiac arrest: (2) Respiratory arrest: (3) Required emergency intubation: (4) [place] (acute kidney injury): (5) Ambulatory dysfunction: (6) History of thoracic aortic aneurysm repair: (7) Hypertension: (8) Diabetes mellitus, type 2: (9) CAD (coronary artery disease): Plan Reason Critically Ill: 72 YOM admitted for rehab placement following prolonged admission for thoracic aneurysm repair at [facility] Pres that was complicated by renal infarcts and dialysis dependant [place]. He suffered a respiratory arrest x2 this evening requiring intubation and mechanical ventilation, following intubation and transfer he suffered from bradycardic arrest requiring CPR and epinephrine pushes and infusion. Neuro -mild disorientation -Normalize sleep-wake cycle, attempt to normalize patient Cardiac - Cardiac arrest, bradycardia, shock, PAF, s/p thoracic aneurysm repair Atrial fibrillation: Chronic: Rate controlled -Continue metoprolol -Defer amiodarone continuation versus conversion to oral to cardiology Coronary artery disease -Antiplatelet therapy and simvastatin -Holding simvastatin secondary to daptomycin use for bacteremia Bradycardia: No intervention per cardiology, asymptomatic Cardiac arrest -Reviewed cardiology notes Aortic dissection status post endovascular repair at [facility] -Reviewed vascular surgery notes no indication for intervention at this time Respiratory -Hypoxic Respiratory arrest: Improving -Wean oxygen as needed GI - GERD -renal diet -Discontinuing PPI as this was not a home medication RENAL/LYTES - [place] dialysis dependant, -Defer decision for Epogen to nephrology: Currently ordered by nephrology - Acosta to gravity - unsure at this time how much urine patient makes ENDO - DMII - ICU hyperglycemic protocol - goal <180mg/dl -Transition off insulin infusion to subcutaneous protocol HEME -anemia -Transfuse 1 unit packed red blood cells -Would benefit from systemic anticoagulation for atrial fibrillation per cardiology notes -Defer initiation additional 24 hours given transfusion needs given comorbidities -Baseline folate B12 and iron studies obtained -Suspect aspects of chronic anemia related to kidney failure and iatrog enic phlebotomy as patient has required multiple sets of blood cultures to be obtained -Epogen ordered by nephrology ID -methicillin-resistant Staph epidermidis bacteremia -Increase daptomycin dosing from 4 mg/kg to 6 mg/kg -Repeat cultures positive additional set of cultures ordered for tomorrow morning - Infectious disease consult LINES/IV ACCESS - CVL, Eri, ETT, OGT, Acosta -Discontinue central line and arterial line -Patient may need temporary medium term access near future given bacteremia DVT PROPHYLAXIS - SCDs, ASA/Plavix, Heparin subq DISPO: Stable for downgrade out of ICU Admission and Anticipated Discharge Date Admission Date: January 10, 2023 Review of Systems Review of Systems: No chest pain, no dizziness Physical Exam Physical Exam: General: Alert. nontoxic. no memory of resent events: did not remember being discharged home Skin: Warm, dry, Head: Atraumatic Ears, nose, mouth and throat: airway patent Cardiovascular: Normal peripheral perfusion Respiratory: no respiratory distress Gastrointestinal: Non distended Musculoskeletal: No deformity Results & Data Results & Data Vital Signs (Past 12 Hours) Vital Signs Temp Pulse Pulse Resp BP BP Pulse Ox 01/14/23 06:49 100 H 17 94 01/14/23 06:15 107 H 23 88 L 01/14/23 06:00 101 H 24 128/77 95 01/14/23 05:54 128/77 01/14/23 05:54 99 H 18 87 L 01/14/23 05:45 99 H 26 H 98 01/14/23 05:31 109 H 46 H 95 01/14/23 05:30 111 H 24 84 L 01/14/23 05:15 99 H 32 H 134/73 99 01/14/23 05:00 134/73 01/14/23 05:00 99 H 26 H 99 01/14/23 04:45 100 H 27 H 96 01/14/23 04:30 96 H 24 96 01/14/23 04:15 95 H 18 86 L 01/14/23 04:00 119/75 01/14/23 04:00 96 H 24 119/75 96 01/14/23 03:52 36.8 C 99 H 27 H 129/81 95 01/14/23 03:47 102 H 160/57 H 01/14/23 03:45 83 20 92 01/14/23 03:30 129/81 01/14/23 03:30 95 H 24 100 01/14/23 03:15 100 H 12 96 01/14/23 03:00 93 H 26 H 129/81 98 01/14/23 02:45 94 H 24 99 01/14/23 02:30 92 H 24 96 01/14/23 02:15 105 H 25 H 98 01/14/23 02:00 93 H 24 116/70 96 01/14/23 01:45 98 H 20 93 01/14/23 01:30 116/70 01/14/23 01:30 99 H 32 H 100 01/14/23 01:15 92 H 23 98 01/14/23 01:00 95 H 32 H 125/66 91 01/14/23 01:00 125/66 01/14/23 00:45 95 H 23 98 01/14/23 00:31 100 H 20 114/68 96 01/14/23 00:31 114/68 01/14/23 00:30 96 H 22 94 01/14/23 00:15 94 H 22 88 L 01/14/23 00:00 94 H 18 01/14/23 00:00 94 H 01/14/23 00:00 36.6 C 96 H 23 117/66 97 01/14/23 00:00 101 H 154/56 H 01/13/23 23:45 94 H 22 99 01/13/23 23:30 93 H 23 97 01/13/23 23:15 96 H 22 99 01/13/23 23:00 92 H 20 98 01/13/23 22:45 92 H 21 98 01/13/23 22:30 97 H 22 95 01/13/23 22:15 102 H 19 115/61 96 01/13/23 22:00 115/61 01/13/23 22:00 97 H 24 95 O2 Del Method O2 Flow Rate 01/14/23 06:49 Nasal Cannula 3 01/14/23 06:15 01/14/23 06:00 01/14/23 05:54 01/14/23 05:54 01/14/23 05:45 01/14/23 05:31 01/14/23 05:30 01/14/23 05:15 01/14/23 05:00 01/14/23 05:00 01/14/23 04:45 01/14/23 04:30 01/14/23 04:15 01/14/23 04:00 01/14/23 04:00 01/14/23 03:52 Nasal Cannula 2 01/14/23 03:47 01/14/23 03:45 01/14/23 03:30 01/14/23 03:30 01/14/23 03:15 01/14/23 03:00 01/14/23 02:45 01/14/23 02:30 01/14/23 02:15 01/14/23 02:00 01/14/23 01:45 01/14/23 01:30 01/14/23 01:30 01/14/23 01:15 01/14/23 01:00 01/14/23 01:00 01/14/23 00:45 01/14/23 00:31 01/14/23 00:31 01/14/23 00:30 01/14/23 00:15 01/14/23 00:00 01/14/23 00:00 01/14/23 00:00 Nasal Cannula 2 01/14/23 00:00 01/13/23 23:45 01/13/23 23:30 01/13/23 23:15 01/13/23 23:00 01/13/23 22:45 01/13/23 22:30 01/13/23 22:15 01/13/23 22:00 01/13/23 22:00 Coding Level of Care Code 15321 SUB INP/OBS CARE 3/50MIN Diagnoses Cardiac arrest I46.9 Respiratory arrest R09.2 Required emergency intubation Z98.890 [place] (acute kidney injury) N17.9 Ambulatory dysfunction R26.2 History of thoracic aortic aneurysm repair Z98.890; Z86.79 Hypertension, unspecified type I10 Hypertension type: unspecified Type 2 diabetes mellitus with other circulatory complication, without long-term current use of insulin E11.59 Diabetes mellitus shelter insulin use: without shelter use Diabetes mellitus complication status: with circulatory complication Diabetes mellitus complication detail: with other circulatory complications Coronary artery disease involving [place] coronary artery of [place] heart without angina pectoris I25.10 Coronary Disease-Associated Artery/Lesion type: [place] artery [place] vs. transplanted heart: [place] heart Associated angina: without angina (7) Hypertension Hypertension type: unspecified Qualified Code(s): I10 - Essential (primary) hypertension (8) Diabetes mellitus, type 2 Diabetes mellitus terminal carman insulin use: without shelter use Diabetes mellitus complication status: with circulatory complication Diabetes mellitus complication detail: with other circulatory complications Qualified Code(s): E11.59 - Type 2 diabetes mellitus with other circulatory complications (9) CAD (coronary artery disease) Coronary Disease-Associated Artery/Lesion type: [place] artery [place] vs. transplanted heart: [place] heart Associated angina: without angina Qualified Code(s): I25.10 - Atherosclerotic heart disease of [place] coronary artery without angina pectoris
[2023-01-14] MEDS ORDERED: EPOETIN ALFA 20,000 UNITS/ML VIAL IV ONE (10:00)
[2023-01-14 11:41] LABS: iSTAT Art Bld Gas pCO2 Correct 29 mmHg (35-46); iSTAT Art Bld Gas pH Corrected 7.454 (7.35-7.45); iSTAT Arterial Blood Gas HCO3 20 meg/L (19-24); iSTAT Arterial Blood Gas pCO2 29 mmHg (35-46); iSTAT Arterial Blood Gas pH 7.46 (7.35-7.45); iSTAT Arterial Blood Gas pO2 78 mmHg (80-95); iSTAT Arterial Blood Gas pO2 C 80; iSTAT Carbon Dioxide 21 mmol/L (24-31); iSTAT FiO2 40 %; iSTAT Hematocrit 24 % (42-52); iSTAT Hemoglobin 8.2 g/dl (14.0-18.0); iSTAT Potassium 4.3 mmol/L (3.3-5.0); iSTAT Site L Femoral; iSTAT Sodium 133 mmol/L (135-144)
[2023-01-14 11:41] LABS: iSTAT Art Bld Gas pCO2 Correct 58 mmHg (35-46); iSTAT Art Bld Gas pH Corrected 7.158 (7.35-7.45); iSTAT Arterial Blood Gas HCO3 21 meg/L (19-24); iSTAT Arterial Blood Gas pCO2 57 mmHg (35-46); iSTAT Arterial Blood Gas pH 7.17 (7.35-7.45); iSTAT Arterial Blood Gas pO2 134 mmHg (80-95); iSTAT Arterial Blood Gas pO2 C 137; iSTAT Carbon Dioxide 22 mmol/L (24-31); iSTAT FiO2 40 %; iSTAT Hematocrit 27 % (42-52); iSTAT Hemoglobin 9.2 g/dl (14.0-18.0); iSTAT Potassium 3.7 mmol/L (3.3-5.0); iSTAT Site Art Line; iSTAT Sodium 137 mmol/L (135-144)
[2023-01-14 12:08] LABS: iSTAT Art Bld Gas pCO2 Correct 41 mmHg (35-46); iSTAT Art Bld Gas pH Corrected 7.397 (7.35-7.45); iSTAT Arterial Blood Gas HCO3 25 meg/L (19-24); iSTAT Arterial Blood Gas pCO2 41 mmHg (35-46); iSTAT Arterial Blood Gas pO2 167 mmHg (80-95); iSTAT Arterial Blood Gas pO2 C 168; iSTAT Carbon Dioxide 26 mmol/L (24-31); iSTAT FiO2 60 %; iSTAT Hematocrit 23 % (42-52); iSTAT Hemoglobin 7.8 g/dl (14.0-18.0); iSTAT Potassium 4.1 mmol/L (3.3-5.0); iSTAT Site Art Line; iSTAT Sodium 136 mmol/L (135-144)
[2023-01-14 14:57] LABS: Hematocrit (blood only) 23.7 % (42.0-52.0); Hemoglobin 7.8 g/dl (14.0-18.0)
--- NOTE | 2023-01-14 15:50 | Infectious Disease Consult ---
Date of Consultation January 14, 2023 Assessment & Plan (1) Gram-positive bacteremia: (2) Cardiac arrest: (3) [place] (acute kidney injury): Plan 72yo male with pmh of DE s/p PCI (2000), prostate cancer s/p prostatectomy , HTN, Dm2, renal cell carcinoma s/p partial L nephrectomy (2014), LLE DVT (2020), prior history of AAA s/p EVAR (2008), recently admitted to [facility] 12/18-01/08 with type B aortic dissection with aortic thrombus and concern for renal infarcts. He underwent thoracic endovascular aortic repair (TEVAR ) on12/23/22 with [employer] [place] endograft. He required renal stenting ,kidney function worsened and now on HD. He was discharged to SNf, but there was a mixup in the location and he ended up there for 2 d and presents to ED for placement On admission, he is HDS. WBC 11.46, h/h 9.5/29, cr 2.09-? 6.18, AST 47, ALT 55, Alkp 134. UA with 5-10 wbc . Flu/covid/rsv negative. 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 There was a trace amount of contrast tracking along the inferior margin of the thoracic graft. The grafts and stents are widely patent. There was no endograft leakage. CT head showed Gas fluid levels involving the maxillary, sphenoid, and ethmoid sinuses suggesting acute sinusitis.His course c/b cardiac arrest on 01/12 after scans requiring intubation ( sp extubation). Post cardiac arrest BCID PCR w/ staph epi ( mecA). BC with multiple GPC in clusters AND onne BC on 01/13 with GPC in chains . Id consulted for GPC bacteremia. Pt is awake and alert on my exam but confused. Micro: UC 01/11 > 3 organisms BCID PCr 01/12 Staph epi ( MecA+) BC 01/12 2/4 bottles staph species ( pending) BC 01/12 4/4 bottles gpc clusters BC 01/13 03/15 bottles GPC in chains BC 01/15 pending Abx Daptomycin 01/12- ongoing Zosyn 01/12-ongoing # Staph species bacteremia # Polymicrobial GPC in multiple bottles ( GPC clusters AND GPC chains) #Acute sinusitis on imaging # Recent thoracic aortic aneurysm repair with graft # R HD catheter in place # left femoral line place # right great toe screw in place #R AC fossa erythema. Staph species/CONS in multiple bottles is not a contaminant lisa in conjunction with presenting symptoms, recent endovascular procedure with graft and central lines. Several possible sources of infection; 1) endovascular graft 2) central lines-HD catheter, femoral line, 3) History of R great toe metal/screw 4) R AC fossa tenderness and redness/ PIV infiltration( less likely) 5) acute sinusitis on imaging ( less likely) Also noted is a bottle on 01/13 is Positive for GPC in CHAINS which is not usually staph but either Streptococcus or Enterococcus. No evidence if infection at R great toe where pt reports he has a screw. Recs Continue HD dosing for Daptomycin 6 mg /kg 3 times per week POST HD Check TTE Repeat BC to ensure BC clearance Follow up CONS sensi Follow up ID and of the GPC in CHAINS Remove Left groin line Check RUE AC fossa soft tissue to be sure no abscess . Will likely need HD cath removed if CONS, and/OR GPC in chains persistent ( Can stay for now as no yeast, MRSA/MSSA or PSA identified) If persistent BC, will need to consider endograft infection Discussed with hospitalist Thank you for this consultation. ID will continue to follow. Hazel Carreon MD, MPH Infectious Disease [facility], [facility] Call [phone] with questions Consultation Information Consultation was provided via telemedicine using two-way real-time interactive telecommunication between the patient and the telemedicine provider. For the duration of the visit, the provider was performing the assessment from a different facility than the patient. This includesuse of bluetooth stethoscope forauscultationperformed by the telepresenter that the telemedicine provider can hear if described in the physical exam. [facility] contact information: Please call [facility] Call Center [phone]. (Phone Number For Physician Use Only) After establishing a telemedicine visit, patient was: Patient was verified with two unique identifiers Time Spent with Patient: Initial => 75 min History of Present Illness Reason for Consultation: GPC bacteremia Requesting Physician: Xenia Paez MD Attending Physician: Xenia Paez MD History of Present Illness 72yo male with pmh of DE s/p PCI (2000), prostate cancer s/p prostatectomy , HTN, Dm2, renal cell carcinoma s/p partial L nephrectomy (2014), LLE DVT (2020), prior history of AAA s/p EVAR (2008), recently admitted to [facility] 12/18-01/08 with type B aortic dissection with aortic thrombus and concern for renal infarcts. He underwent thoracic endovascular aortic repair (TEVAR ) on12/23/22 with [employer] [place] endograft. He required renal stenting ,kidney function worsened and now on HD. He was discharged to SNf, but there was a mixup in the location and he ended up there for 2 d and presents to ED for placement On admission, he is HDS. WBC 11.46, h/h 9.5/29, cr 2.09-? 6.18, AST 47, ALT 55, Alkp 134. UA with 5-10 wbc . Flu/covid/rsv negative. 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 There was a trace amount of contrast tracking along the inferior margin of the thoracic graft. The grafts and stents are widely patent. There was no endograft leakage. CT head showed Gas fluid levels involving the maxillary, sphenoid, and ethmoid sinuses suggesting acute sinusitis.His course c/b cardiac arrest on 01/12 after scans requiring intubation ( sp extubation). Post cardiac arrest BCID PCR w/ staph epi ( mecA). BC with multiple GPC in clusters AND onne BC on 01/13 with GPC in chains . Id consulted for GPC bacteremia. Pt is awake and alert on my exam but confused. Allergies Allergy/AdvReac Type Severity Reaction Status Date / Time Iodinated Contrast Media Allergy Severe Anaphylaxis Verified 01/12/23 20:31 morphine Allergy Intermediate hives Verified 01/10/23 19:12 Penicillins Allergy Intermediate skin Verified 01/10/23 19:12 streaking tetanus toxoid, adsorbed Allergy Intermediate local skin Verified 01/10/23 19:12 irritation meperidine AdvReac Intermediate hallucinations, Verified 01/10/23 19:12 agitation Home Medications Medication Instructions Recorded Confirmed Type aspirin 81 mg tablet,delayed 81 mg PO QAM 01/18/19 01/10/23 History release (Nora Low Dose Aspirin) amlodipine 5 mg tablet 5 mg PO QAM 03/29/22 01/10/23 History metoprolol tartrate 100 mg tablet 100 mg PO BID 03/29/22 01/10/23 History simvastatin 40 mg tablet 40 mg PO HS 03/29/22 01/10/23 History metformin 500 mg tablet 500 mg PO BIDM 09/30/22 01/10/23 History acetaminophen 325 mg tablet 650 mg PO Q6H PRN Pain 01/10/23 01/10/23 History (Tylenol) albuterol sulfate 90 mcg/actuation 2 puff inhalation Q6H PRN Wheezing 01/10/23 01/10/23 History aerosol inhaler clopidogrel 75 mg tablet (Plavix) 75 mg PO QAM 01/10/23 01/10/23 History fluticasone furoate 100 1 inh inhalation QAM 01/10/23 01/10/23 History mcg-vilanterol 25 mcg/dose inhalation powder (Breo Ellipta) oxycodone 5 mg tablet 5 mg PO Q4H PRN Pain 01/10/23 01/10/23 History polyethylene glycol 3350 17 17 g PO BID 01/10/23 01/10/23 History gram/dose oral powder (Miralax) Patient History Medical History Benign prostatic hyperplasia with urinary obstruction Elevated PSA Malignant neoplasm of kidney excluding renal pelvis Urethral stricture History of abdominal aortic aneurysm (AAA) s/p repair + stent (2008) CAD (coronary artery disease) stents x 2 (2000) History of kidney cancer left kidney (2014) s/p tumor removal (s/p partial left nephrectomy) BPH (benign prostatic hyperplasia) GERD (gastroesophageal reflux disease) controlled Diabetes mellitus, type 2 diet controlled History of skin cancer face Hx of myocardial infarction 2000 - stents x 2 Hypertension Hyperlipidemia Renal mass, left Surgical History Status post insertion of iliac artery stent (from trauma from endovascular procedure per records) Hx of colonoscopy History of AAA (abdominal aortic aneurysm) repair + stent (2008) Hx of hernia repair Hx of abdominal surgery d/t peritonitis History of appendectomy History of kidney surgery Left partial robotic nephrectomy, hand assisted laparoscopy: 09/24/14: Grade I view, MAC#4, ETT 8 at [facility] Family History Brother Family history of diabetes mellitus Social History Smoking Status: Former smoker Tobacco Type: Cigarettes Second Hand Exposure: No; Do You Dip or Chew Tobacco: No; Hx Alcohol Use: No Hx Substance Use: No Preferred Language: Kyrgyz Communication Ability: Effective Flying Instructor Required: No Beliefs That Will Affect Care: None Current Living Situation: Alone Current Living Situation Comment: single family home Feels Safe at Home: Yes Assistive Devices: Cane Review of System A 10 point ROS obtained . Pertinent positives as per HPI Physical Exam Physical Exam: gen- NAD, NC in place, awake but poor historian. HEENT, poor dentition HD catheter on R chest c/d/1 Right groin incision c/d/I Left groin femoral IV RUE AC fossa erythema, warmth NO LE edema NO skin lesions + R thigh bruising Results & Data Vital Signs (Past 12 Hours) Vital Signs Temp Pulse Pulse Resp BP BP BP 01/14/23 13:15 37.3 C 109 H 114/72 01/14/23 13:00 105 H 151/68 H 01/14/23 12:30 107 H 148/71 H 01/14/23 12:00 110 H 141/91 H 01/14/23 11:30 111 H 153/88 H 01/14/23 11:00 104 H 151/88 H 01/14/23 10:43 36.9 C 108 H 17 132/83 01/14/23 10:30 109 H 134/76 01/14/23 10:28 36.9 C 115 H 18 143/64 H 01/14/23 10:07 135/64 01/14/23 10:07 107 H 24 01/14/23 10:06 36.9 C 105 H 15 135/64 01/14/23 10:01 114 H 30 H 01/14/23 10:01 128/77 01/14/23 10:00 108 H 30 H 01/14/23 10:00 105 H 128/70 01/14/23 09:45 102 H 28 H 01/14/23 09:45 134/75 01/14/23 09:45 102 H 134/75 01/14/23 09:30 36.8 C 100 H 01/14/23 09:02 131/73 01/14/23 09:02 113 H 20 01/14/23 09:00 115 H 15 01/14/23 08:32 137/89 01/14/23 08:32 113 H 18 01/14/23 08:00 103 H 39 H 01/14/23 08:00 01/14/23 08:00 36.8 C 01/14/23 07:41 116 H 20 01/14/23 07:41 139/76 01/14/23 07:15 100 H 26 H 01/14/23 06:49 100 H 17 01/14/23 06:15 107 H 23 01/14/23 06:00 101 H 24 128/77 01/14/23 05:54 128/77 01/14/23 05:54 99 H 18 01/14/23 05:45 99 H 26 H 01/14/23 05:31 109 H 46 H 01/14/23 05:30 111 H 24 01/14/23 05:15 99 H 32 H 134/73 01/14/23 05:00 134/73 01/14/23 05:00 99 H 26 H 01/14/23 04:45 100 H 27 H 01/14/23 04:30 96 H 24 01/14/23 04:15 95 H 18 01/14/23 04:00 119/75 01/14/23 04:00 96 H 24 119/75 01/14/23 03:52 36.8 C 99 H 27 H 129/81 01/14/23 03:47 102 H 160/57 H Pulse Ox O2 Del Method O2 Flow Rate 01/14/23 13:15 01/14/23 13:00 01/14/23 12:30 01/14/23 12:00 01/14/23 11:30 01/14/23 11:00 01/14/23 10:43 97 3 01/14/23 10:30 01/14/23 10:28 96 3 01/14/23 10:07 01/14/23 10:07 96 01/14/23 10:06 97 3 01/14/23 10:01 97 11/03/23 10:01 01/14/23 10:00 84 L 01/14/23 10:00 01/14/23 09:45 95 01/14/23 09:45 01/14/23 09:45 01/14/23 09:30 01/14/23 09:02 01/14/23 09:02 93 01/14/23 09:00 90 01/14/23 08:32 01/14/23 08:32 90 01/14/23 08:00 96 01/14/23 08:00 Nasal Cannula 2 01/14/23 08:00 01/14/23 07:41 85 L 01/14/23 07:41 01/14/23 07:15 94 01/14/23 06:49 94 Nasal Cannula 3 01/14/23 06:15 88 L 01/14/23 06:00 95 01/14/23 05:54 01/14/23 05:54 87 L 01/14/23 05:45 98 01/14/23 05:31 95 01/14/23 05:30 84 L 01/14/23 05:15 99 01/14/23 05:00 01/14/23 05:00 99 01/14/23 04:45 96 01/14/23 04:30 96 01/14/23 04:15 86 L 01/14/23 04:00 01/14/23 04:00 96 01/14/23 03:52 95 Nasal Cannula 2 01/14/23 03:47 Laboratory Results Laboratory Results - last 48 hr 01/12/23 01/12/23 01/12/23 15:48 17:48 20:19 WBC RBC Hgb POC Hgb Hct POC Hct MCV MCH MCHC RDW Std Deviation RDW Coeff of Gennaro Plt Count MPV Immature Gran % (Auto) Neut % (Auto) Lymph % (Auto) [place] % (Auto) Eos % (Auto) Baso % (Auto) Reticulocyte % (Auto) Neut # (Auto) Lymph # (Auto) [place] # (Auto) Eos # (Auto) Baso # (Auto) Reticulocyte # Immature Gran # (Auto) PT INR Sample Site POC pH POC pCO2 POC pO2 POC HCO3 POC Total CO2 POC Base Excess ABG pH (Temp Correct) ABG pCO2 (Temp Corrct POC ABG pO2 at Pt Temp POC ABG O2 Sat Logan Test O2 Delivery Device POC O2 Rate Minute Ventilation POC FiO2 Tidal Volume PEEP POC Sodium Sodium POC Potassium Potassium Chloride Carbon Dioxide Anion Gap BUN Creatinine Est Cr Clr Drug Dosing Est GFR ( Amer) Est GFR (Non-Af Amer) BUN/Creatinine Ratio Glucose POC Glucose 99 180 H POC Glucose (other) Lactate Calcium Phosphorus Magnesium Iron Transferrin Ferritin Total Bilirubin Direct Bilirubin AST ALT Alkaline Phosphatase Troponin I High Sens Total Protein Albumin Globulin Albumin/Globulin Ratio Vitamin B12 Folate Nasal Screen MRSA (PCR) Staphylococcus sp PCR DETECTED A mecA/C-Methicil Resis Gene DETECTED A Staph epidermidis (PCR) DETECTED A Bld Cult ID Panel PCR See PCR Comment Blood Type Antibody Screen Crossmatch 01/12/23 01/12/23 01/12/23 21:02 21:07 21:15 WBC 10.30 RBC 2.78 L Hgb 8.5 L POC Hgb 8.2 L Hct 26.1 L POC Hct 24 L MCV 93.9 MCH 30.6 MCHC 32.6 RDW Std Deviation 43.4 RDW Coeff of Gennaro 12.6 Plt Count 222 MPV 10.9 Immature Gran % (Auto) 2.1 Neut % (Auto) 55.5 Lymph % (Auto) 35.1 [place] % (Auto) 4.6 Eos % (Auto) 2.4 Baso % (Auto) 0.3 Reticulocyte % (Auto) Neut # (Auto) 5.71 Lymph # (Auto) 3.62 H [place] # (Auto) 0.47 Eos # (Auto) 0.25 Baso # (Auto) 0.03 Reticulocyte # Immature Gran # (Auto) 0.22 H PT 11.7 INR 1.1 Sample Site L Radial POC pH 7.32 L POC pCO2 51 H POC pO2 357 H POC HCO3 27 H POC Total CO2 28 POC Base Excess 0.0 ABG pH (Temp Correct) 7.337 L ABG pCO2 (Temp Corrct 49 H POC ABG pO2 at Pt Temp 352 POC ABG O2 Sat 100.0 H Logan Test Pass O2 Delivery Device Ventilator POC O2 Rate 26 Minute Ventilation POC FiO2 100 Tidal Volume 450 PEEP 8 POC Sodium 138 Sodium 138 POC Potassium 3.9 Potassium 4.0 Chloride 100 Carbon Dioxide 25 Anion Gap 13 H BUN 21 Creatinine 3.36 H D Est Cr Clr Drug Dosing 20.5 Est GFR ( Amer) 19.9 Est GFR (Non-Af Amer) 17.2 BUN/Creatinine Ratio 6.3 L Glucose 213 H POC Glucose POC Glucose (other) Lactate 5.8 H* Calcium 10.3 Phosphorus Magnesium Iron Transferrin Ferritin Total Bilirubin 0.6 Direct Bilirubin 0.3 H AST 103 H ALT 121 H Alkaline Phosphatase 215 H Troponin I High Sens 20.2 H Total Protein 6.5 Albumin 2.7 L Globulin Albumin/Globulin Ratio Vitamin B12 Folate Nasal Screen MRSA (PCR) Negative Staphylococcus sp PCR mecA/C-Methicil Resis Gene Staph epidermidis (PCR) Bld Cult ID Panel PCR Blood Type Antibody Screen Crossmatch 01/12/23 01/13/23 01/13/23 21:40 00:13 01:57 WBC RBC Hgb POC Hgb 7.8 L Hct POC Hct 23 L MCV MCH MCHC RDW Std Deviation RDW Coeff of Gennaro Plt Count MPV Immature Gran % (Auto) Neut % (Auto) Lymph % (Auto) [place] % (Auto) Eos % (Auto) Baso % (Auto) Reticulocyte % (Auto) Neut # (Auto) Lymph # (Auto) [place] # (Auto) Eos # (Auto) Baso # (Auto) Reticulocyte # Immature Gran # (Auto) PT INR Sample Site Art Line POC pH 7.40 POC pCO2 41 POC pO2 167 H POC HCO3 25 H POC Total CO2 26 POC Base Excess 0.0 ABG pH (Temp Correct) 7.397 ABG pCO2 (Temp Corrct 41 POC ABG pO2 at Pt Temp 168 POC ABG O2 Sat 100.0 H Logan Test NA O2 Delivery Device Ventilator POC O2 Rate 26 Minute Ventilation POC FiO2 60 Tidal Volume 450 PEEP 8 POC Sodium 136 Sodium POC Potassium 4.1 Potassium Chloride Carbon Dioxide Anion Gap BUN Creatinine Est Cr Clr Drug Dosing Est GFR ( Amer) Est GFR (Non-Af Amer) BUN/Creatinine Ratio Glucose POC Glucose POC Glucose (other) 335 H 355 H* Lactate Calcium Phosphorus Magnesium Iron Transferrin Ferritin Total Bilirubin Direct Bilirubin AST ALT Alkaline Phosphatase Troponin I High Sens Total Protein Albumin Globulin Albumin/Globulin Ratio Vitamin B12 Folate Nasal Screen MRSA (PCR) Staphylococcus sp PCR mecA/C-Methicil Resis Gene Staph epidermidis (PCR) Bld Cult ID Panel PCR Blood Type Antibody Screen Crossmatch 01/13/23 01/13/23 01/13/23 02:19 03:27 04:14 WBC 9.54 RBC 2.64 L Hgb 8.0 L POC Hgb 8.2 L Hct 23.9 L POC Hct 24 L MCV 90.5 MCH 30.3 MCHC 33.5 RDW Std Deviation 41.1 RDW Coeff of Gennaro 12.6 Plt Count 248 MPV 10.7 Immature Gran % (Auto) 0.9 Neut % (Auto) 88.7 Lymph % (Auto) 5.8 [place] % (Auto) 4.4 Eos % (Auto) 0.1 Baso % (Auto) 0.1 Reticulocyte % (Auto) Neut # (Auto) 8.46 H Lymph # (Auto) 0.55 L [place] # (Auto) 0.42 Eos # (Auto) 0.01 Baso # (Auto) 0.01 Reticulocyte # Immature Gran # (Auto) 0.09 PT INR Sample Site L Femoral POC pH 7.46 H POC pCO2 29 L POC pO2 78 L POC HCO3 20 POC Total CO2 21 L POC Base Excess -4.0 ABG pH (Temp Correct) 7.454 H ABG pCO2 (Temp Corrct 29 L POC ABG pO2 at Pt Temp 80 POC ABG O2 Sat 96.0 H Logan Test NA O2 Delivery Device Ventilator POC O2 Rate 26 Minute Ventilation POC FiO2 40 Tidal Volume 450 PEEP 8 POC Sodium 133 L Sodium 134 L POC Potassium 4.3 Potassium 4.5 Chloride 98 Carbon Dioxide 20 L Anion Gap 16 H BUN 29 H Creatinine 4.17 H D Est Cr Clr Drug Dosing 16.5 Est GFR ( Amer) 15.3 Est GFR (Non-Af Amer) 13.2 BUN/Creatinine Ratio 7.0 L Glucose 353 H* POC Glucose POC Glucose (other) 319 H Lactate 2.7 H* Calcium 9.2 Phosphorus 4.5 Magnesium 1.8 Iron Transferrin Ferritin Total Bilirubin 1.2 H D Direct Bilirubin AST 85 H ALT 122 H Alkaline Phosphatase 208 H Troponin I High Sens 179.5 H* D Total Protein 6.9 Albumin 2.8 L Globulin 4.1 H Albumin/Globulin Ratio 0.7 L Vitamin B12 Folate Nasal Screen MRSA (PCR) Staphylococcus sp PCR mecA/C-Methicil Resis Gene Staph epidermidis (PCR) Bld Cult ID Panel PCR Blood Type Antibody Screen Crossmatch 01/13/23 01/13/23 01/13/23 05:06 05:18 06:17 WBC RBC Hgb POC Hgb Hct POC Hct MCV MCH MCHC RDW Std Deviation RDW Coeff of Gennaro Plt Count MPV Immature Gran % (Auto) Neut % (Auto) Lymph % (Auto) [place] % (Auto) Eos % (Auto) Baso % (Auto) Reticulocyte % (Auto) Neut # (Auto) Lymph # (Auto) [place] # (Auto) Eos # (Auto) Baso # (Auto) Reticulocyte # Immature Gran # (Auto) PT INR Sample Site POC pH POC pCO2 POC pO2 POC HCO3 POC Total CO2 POC Base Excess ABG pH (Temp Correct) ABG pCO2 (Temp Corrct POC ABG pO2 at Pt Temp POC ABG O2 Sat Logan Test O2 Delivery Device POC O2 Rate Minute Ventilation POC FiO2 Tidal Volume PEEP POC Sodium Sodium POC Potassium Potassium Chloride Carbon Dioxide Anion Gap BUN Creatinine Est Cr Clr Drug Dosing Est GFR ( Amer) Est GFR (Non-Af Amer) BUN/Creatinine Ratio Glucose POC Glucose POC Glucose (other) 286 H 251 H Lactate 1.7 Calcium Phosphorus Magnesium Iron Transferrin Ferritin Total Bilirubin Direct Bilirubin AST ALT Alkaline Phosphatase Troponin I High Sens Total Protein Albumin Globulin Albumin/Globulin Ratio Vitamin B12 Folate Nasal Screen MRSA (PCR) Staphylococcus sp PCR mecA/C-Methicil Resis Gene Staph epidermidis (PCR) Bld Cult ID Panel PCR Blood Type Antibody Screen Crossmatch 01/13/23 01/13/23 01/13/23 07:34 07:40 08:10 WBC RBC Hgb POC Hgb 9.2 L Hct POC Hct 27 L MCV MCH MCHC RDW Std Deviation RDW Coeff of Gennaro Plt Count MPV Immature Gran % (Auto) Neut % (Auto) Lymph % (Auto) [place] % (Auto) Eos % (Auto) Baso % (Auto) Reticulocyte % (Auto) Neut # (Auto) Lymph # (Auto) [place] # (Auto) Eos # (Auto) Baso # (Auto) Reticulocyte # Immature Gran # (Auto) PT INR Sample Site Art Line POC pH 7.17 L* POC pCO2 57 H POC pO2 134 H POC HCO3 21 POC Total CO2 22 L POC Base Excess -8.0 ABG pH (Temp Correct) 7.158 L* ABG pCO2 (Temp Corrct 58 H POC ABG pO2 at Pt Temp 137 POC ABG O2 Sat 98.0 H Logan Test NA O2 Delivery Device Ventilator POC O2 Rate 22 Minute Ventilation 9.9 POC FiO2 40 Tidal Volume 450 PEEP 6 POC Sodium 137 Sodium POC Potassium 3.7 Potassium Chloride Carbon Dioxide Anion Gap BUN Creatinine Est Cr Clr Drug Dosing Est GFR ( Amer) Est GFR (Non-Af Amer) BUN/Creatinine Ratio Glucose POC Glucose POC Glucose (other) 205 H Lactate Calcium Phosphorus Magnesium Iron Transferrin Ferritin Total Bilirubin Direct Bilirubin AST ALT Alkaline Phosphatase Troponin I High Sens 270.9 H* D Total Protein Albumin Globulin Albumin/Globulin Ratio Vitamin B12 Folate Nasal Screen MRSA (PCR) Staphylococcus sp PCR mecA/C-Methicil Resis Gene Staph epidermidis (PCR) Bld Cult ID Panel PCR Blood Type Antibody Screen Crossmatch 01/13/23 01/13/23 01/13/23 08:35 10:40 11:09 WBC RBC Hgb POC Hgb Hct POC Hct MCV MCH MCHC RDW Std Deviation RDW Coeff of Gennaro Plt Count MPV Immature Gran % (Auto) Neut % (Auto) Lymph % (Auto) [place] % (Auto) Eos % (Auto) Baso % (Auto) Reticulocyte % (Auto) Neut # (Auto) Lymph # (Auto) [place] # (Auto) Eos # (Auto) Baso # (Auto) Reticulocyte # Immature Gran # (Auto) PT INR Sample Site POC pH POC pCO2 POC pO2 POC HCO3 POC Total CO2 POC Base Excess ABG pH (Temp Correct) ABG pCO2 (Temp Corrct POC ABG pO2 at Pt Temp POC ABG O2 Sat Logan Test O2 Delivery Device POC O2 Rate Minute Ventilation POC FiO2 Tidal Volume PEEP POC Sodium Sodium POC Potassium Potassium Chloride Carbon Dioxide Anion Gap BUN Creatinine Est Cr Clr Drug Dosing Est GFR ( Amer) Est GFR (Non-Af Amer) BUN/Creatinine Ratio Glucose POC Glucose 91 POC Glucose (other) 186 H 100 H Lactate Calcium Phosphorus Magnesium Iron Transferrin Ferritin Total Bilirubin Direct Bilirubin AST ALT Alkaline Phosphatase Troponin I High Sens Total Protein Albumin Globulin Albumin/Globulin Ratio Vitamin B12 Folate Nasal Screen MRSA (PCR) Staphylococcus sp PCR mecA/C-Methicil Resis Gene Staph epidermidis (PCR) Bld Cult ID Panel PCR Blood Type Antibody Screen Crossmatch 01/13/23 01/13/23 01/13/23 13:57 16:04 20:06 WBC RBC Hgb POC Hgb Hct POC Hct MCV MCH MCHC RDW Std Deviation RDW Coeff of Gennaro Plt Count MPV Immature Gran % (Auto) Neut % (Auto) Lymph % (Auto) [place] % (Auto) Eos % (Auto) Baso % (Auto) Reticulocyte % (Auto) Neut # (Auto) Lymph # (Auto) [place] # (Auto) Eos # (Auto) Baso # (Auto) Reticulocyte # Immature Gran # (Auto) PT INR Sample Site POC pH POC pCO2 POC pO2 POC HCO3 POC Total CO2 POC Base Excess ABG pH (Temp Correct) ABG pCO2 (Temp Corrct POC ABG pO2 at Pt Temp POC ABG O2 Sat Logan Test O2 Delivery Device POC O2 Rate Minute Ventilation POC FiO2 Tidal Volume PEEP POC Sodium Sodium POC Potassium Potassium Chloride Carbon Dioxide Anion Gap BUN Creatinine Est Cr Clr Drug Dosing Est GFR ( Amer) Est GFR (Non-Af Amer) BUN/Creatinine Ratio Glucose POC Glucose 156 H 147 H POC Glucose (other) Lactate Calcium Phosphorus Magnesium Iron Transferrin Ferritin Total Bilirubin Direct Bilirubin AST ALT Alkaline Phosphatase Troponin I High Sens 317.0 H* Total Protein Albumin Globulin Albumin/Globulin Ratio Vitamin B12 Folate Nasal Screen MRSA (PCR) Staphylococcus sp PCR mecA/C-Methicil Resis Gene Staph epidermidis (PCR) Bld Cult ID Panel PCR Blood Type Antibody Screen Crossmatch 01/13/23 01/14/23 01/14/23 22:25 03:36 03:36 WBC 8.00 RBC 2.22 L Hgb 6.7 L* POC Hgb Hct 19.8 L* POC Hct MCV 89.2 MCH 30.2 MCHC 33.8 RDW Std Deviation 41.6 RDW Coeff of Gennaro 12.7 Plt Count 182 MPV 10.8 Immature Gran % (Auto) Neut % (Auto) Lymph % (Auto) [place] % (Auto) Eos % (Auto) Baso % (Auto) Reticulocyte % (Auto) 2.1 H Neut # (Auto) Lymph # (Auto) [place] # (Auto) Eos # (Auto) Baso # (Auto) Reticulocyte # 0.05 Immature Gran # (Auto) PT INR Sample Site POC pH POC pCO2 POC pO2 POC HCO3 POC Total CO2 POC Base Excess ABG pH (Temp Correct) ABG pCO2 (Temp Corrct POC ABG pO2 at Pt Temp POC ABG O2 Sat Logan Test O2 Delivery Device POC O2 Rate Minute Ventilation POC FiO2 Tidal Volume PEEP POC Sodium Sodium 137 POC Potassium Potassium 4.3 Chloride 99 Carbon Dioxide 27 Anion Gap 11 BUN 47 H Creatinine 6.18 H* D Est Cr Clr Drug Dosing 11.0 Est GFR ( Amer) 9.5 Est GFR (Non-Af Amer) 8.2 BUN/Creatinine Ratio 7.6 L Glucose 158 H POC Glucose POC Glucose (other) Lactate Calcium 8.5 L Phosphorus 5.2 H Magnesium 1.8 Iron 106 Transferrin 117 L Ferritin 2664.0 H Total Bilirubin Direct Bilirubin AST ALT Alkaline Phosphatase Troponin I High Sens 206.5 H* D Total Protein Albumin 2.7 L Globulin Albumin/Globulin Ratio Vitamin B12 640 Folate Cancelled 6.53 Nasal Screen MRSA (PCR) Staphylococcus sp PCR mecA/C-Methicil Resis Gene Staph epidermidis (PCR) Bld Cult ID Panel PCR Blood Type Antibody Screen Crossmatch 01/14/23 01/14/23 01/14/23 06:03 07:24 11:30 WBC RBC Hgb POC Hgb Hct POC Hct MCV MCH MCHC RDW Std Deviation RDW Coeff of Gennaro Plt Count MPV Immature Gran % (Auto) Neut % (Auto) Lymph % (Auto) [place] % (Auto) Eos % (Auto) Baso % (Auto) Reticulocyte % (Auto) Neut # (Auto) Lymph # (Auto) [place] # (Auto) Eos # (Auto) Baso # (Auto) Reticulocyte # Immature Gran # (Auto) PT INR Sample Site POC pH POC pCO2 POC pO2 POC HCO3 POC Total CO2 POC Base Excess ABG pH (Temp Correct) ABG pCO2 (Temp Corrct POC ABG pO2 at Pt Temp POC ABG O2 Sat [place] Test O2 Delivery Device POC O2 Rate Minute Ventilation POC FiO2 Tidal Volume PEEP POC Sodium Sodium POC Potassium Potassium Chloride Carbon Dioxide Anion Gap BUN Creatinine Est Cr Clr Drug Dosing Est GFR ( Amer) Est GFR (Non-Af Amer) BUN/Creatinine Ratio Glucose POC Glucose 177 H 99 POC Glucose (other) Lactate Calcium Phosphorus Magnesium Iron Transferrin Ferritin Total Bilirubin Direct Bilirubin AST ALT Alkaline Phosphatase Troponin I High Sens Total Protein Albumin Globulin Albumin/Globulin Ratio Vitamin B12 Folate Nasal Screen MRSA (PCR) Staphylococcus sp PCR mecA/C-Methicil Resis Gene Staph epidermidis (PCR) Bld Cult ID Panel PCR Blood Type A Positive Antibody Screen NEGATIVE Crossmatch See Detail 01/14/23 14:38 WBC RBC Hgb 7.8 L POC Hgb Hct 23.7 L POC Hct MCV MCH MCHC RDW Std Deviation RDW Coeff of Gennaro Plt Count MPV Immature Gran % (Auto) Neut % (Auto) Lymph % (Auto) [place] % (Auto) Eos % (Auto) Baso % (Auto) Reticulocyte % (Auto) Neut # (Auto) Lymph # (Auto) [place] # (Auto) Eos # (Auto) Baso # (Auto) Reticulocyte # Immature Gran # (Auto) PT INR Sample Site POC pH POC pCO2 POC pO2 POC HCO3 POC Total CO2 POC Base Excess ABG pH (Temp Correct) ABG pCO2 (Temp Corrct POC ABG pO2 at Pt Temp POC ABG O2 Sat [place] Test O2 Delivery Device POC O2 Rate Minute Ventilation POC FiO2 Tidal Volume PEEP POC Sodium Sodium POC Potassium Potassium Chloride Carbon Dioxide Anion Gap BUN Creatinine Est Cr Clr Drug Dosing Est GFR ( Amer) Est GFR (Non-Af Amer) BUN/Creatinine Ratio Glucose POC Glucose POC Glucose (other) Lactate Calcium Phosphorus Magnesium Iron Transferrin Ferritin Total Bilirubin Direct Bilirubin AST ALT Alkaline Phosphatase Troponin I High Sens Total Protein Albumin Globulin Albumin/Globulin Ratio Vitamin B12 Folate Nasal Screen MRSA (PCR) Staphylococcus sp PCR mecA/C-Methicil Resis Gene Staph epidermidis (PCR) Bld Cult ID Panel PCR Blood Type Antibody Screen Crossmatch Diagnostic Findings Microbiology 01/12/23 22:46 Blood Aerobic Blood Culture - Preliminary Gram positive cocci clusters 01/12/23 22:46 Blood Anaerobic Blood Culture - Preliminary Staphylococcus species 01/12/23 22:46 Blood Aerobic Blood Culture - Preliminary Gram positive cocci clusters 01/12/23 22:46 Blood Anaerobic Blood Culture - Preliminary Gram positive cocci clusters 01/12/23 15:48 Blood Aerobic Blood Culture - Preliminary Staphylococcus species 01/12/23 15:48 Blood Anaerobic Blood Culture - Preliminary Staphylococcus species 01/13/23 18:01 Blood Aerobic Blood Culture - Preliminary Gram positive cocci in chains 01/12/23 15:42 Blood Aerobic Blood Culture - Preliminary No growth in Aerobic bottle after 24 hours. 01/12/23 15:42 Blood Anaerobic Blood Culture - Preliminary No growth in Anaerobic bottle after 24 hours. 01/11/23 Unknown Urine,Clean Catch Urine Culture - Final More than three types of organisms present, all moderate counts mixed probable skin eliezer. No further identifications or sensitivities to follow. Chest X-Ray 01/12/23 14:43 SINGLE VIEW CHEST CLINICAL HISTORY: Dyspnea. Shaking. FINDINGS: An AP, portable, upright chest radiograph is compared to study dated 01/10/2023 and correlated with chest CT dated 09/18/2014. The examination is degraded by portable technique and apical lordotic positioning. A right jugular jugular central venous catheter is unchanged in position. The heart is enlarged. The pulmonary vasculature is noncongested. A stent graft is again seen in the thoracic aorta. Emphysema and chronic interstitial thickening similar to previous. There is bibasilar scarring/atelectasis. The lungs and pleural spaces are otherwise clear. No pneumothorax is seen. The skeletal structures are osteopenic. The bony thorax is grossly intact. IMPRESSION: Cardiomegaly and emphysema with no acute cardiopulmonary abnormality identified. ACT 112: Negative or not required by law. Electronically signed by: Mando Alfonso M.D. 01/12/2023 3:21 PM Chest CTA 01/12/23 15:41 Exam(s): CTA CHEST W/WO Contrast IV Amt: 118 ml opti 320 EXAM: CT Angiography Chest Without and With Intravenous Contrast CLINICAL HISTORY: Reason for exam: Recent thoracic aneurysm repair, now hypotensive. TECHNIQUE: Axial computed tomographic angiography images of the chest without and with intravenous contrast. CTDI is 37.99 mGy and DLP is 4063.15 mGy-cm. Automated exposure control was utilized for the study. A dose lowering technique was utilized adhering to the principles of ALARA. MIP reconstructed images were created and reviewed. CONTRAST: Patient received 118 ml opti 320 of IV contrast COMPARISON: Chest x-ray from January 12, 2023 FINDINGS: Pulmonary arteries: Unremarkable. No pulmonary embolism. Aorta: Previous stent grafting of the distal aortic arch and descending thoracic aorta. The graft is widely patent. The distal thoracic aorta demonstrates a sac measuring up to 4.7 cm. No endograft leakage is seen through the main portion of the graft. There is a trace amount of contrast tracking adjacent to the distal 2 cm of the thoracic graft at the level of the diaphragm. No thoracic aortic aneurysm. Great vessels of aortic arch: Trace amount of calcified plaque at the origin of the left subclavian artery without stenosis. Lungs: Small amount of linear scarring or atelectasis in the right mid to upper lung. Mild emphysematous changes are present. No mass. Pleural space: Unremarkable. No significant effusion. No pneumothorax. Heart: The heart is borderline enlarged. Severe coronary calcification is present. No pericardial effusion. No evidence of RV dysfunction. Thyroid: 2.3 cm right thyroid nodule inferiorly. Bones/joints: Mild multilevel degenerative change are seen throughout the spine. No acute fracture or subluxation is seen. Soft tissues: Unremarkable. Lymph nodes: Unremarkable. No enlarged lymph nodes. IMPRESSION: 1. Previous stent grafting of the distal aortic arch and descending thoracic aorta. The graft is widely patent. The distal thoracic aorta demonstrates a sac measuring up to 4.7 cm. No endograft leakage is seen through the main portion of the graft. There is a trace amount of contrast tracking adjacent to the distal 2 cm of the thoracic graft at the level of the diaphragm. Please see CT angiogram of the abdomen and pelvis. 2. Small amount of linear scarring or atelectasis in the right mid to upper lung. Mild emphysematous changes are present. Electronically signed by: Triston Ricketts MD 01/12/23 21:11 PM Abdomen/Pelvis CTA 01/12/23 16:14 Exam(s): CTA ABDOMEN + PELVIS W/WO Contrast IV Amt: 118 ml opti 320 EXAM: CT Angiography Abdomen and Pelvis Without and With Intravenous Contrast CLINICAL HISTORY: Reason for exam: recent thoracic aneurysm repair. TECHNIQUE: Axial computed tomographic angiography images of the abdomen and pelvis without and with intravenous contrast. CTDI is 37.99 mGy and DLP is 4063. 15 mGy-cm. Automated exposure control was utilized for the study. A dose lowering technique was utilized adhering to the principles of ALARA. MIP reconstructed images were created and reviewed. CONTRAST: Patient received 118 ml opti 320 of IV contrast COMPARISON: No relevant prior studies available. FINDINGS: VASCULATURE: Aorta: There is aneurysmal dilation of the distal thoracic and upper abdominal aorta measuring up to 4.5 cm in diameter. The thoracic graft terminates at the level of the diaphragm. There is a trace amount of contrast tracking along the inferior margin of the thoracic graft. There is an abdominal aortic stent graft in place with bilateral renal small goals. The grafts and stents are widely patent. The residual aneurysm sac in the infrarenal portion measures 3 cm. No endograft leakage or extravasation is seen. No dissection. Celiac trunk and mesenteric arteries: No acute findings. No occlusion or significant stenosis. Renal arteries: No acute findings. No occlusion or significant stenosis. Iliac arteries: There is a left external iliac artery stent which is widely patent. No occlusion or significant stenosis. 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 Calcified plaque causing 30% stenosis of the right common femoral artery. Lung bases: Unremarkable. No mass. No consolidation. ABDOMEN: Liver: There is mild fatty infiltration of the liver. No focal liver lesion is seen. Gallbladder and bile ducts: Unremarkable. No calcified stones. No ductal dilation. Pancreas: Unremarkable. No ductal dilation. No mass. Spleen: Unremarkable. No splenomegaly. Adrenals: Unremarkable. No mass. Kidneys and ureters: There are several simple cysts measuring up to 3. 1 cm in the lower pole the right kidney. No hydronephrosis or ureterolithiasis is seen. Stomach and bowel: There is diverticulosis throughout the colon. No evidence of acute diverticulitis. No acute inflammatory changes are seen involving the bowel. No obstruction. PELVIS: Appendix: No findings to suggest acute appendicitis. Bladder: Unremarkable. No stones. No mass. Reproductive: Unremarkable as visualized. ABDOMEN and PELVIS: Intraperitoneal space: Unremarkable. No significant fluid collection. No free air. Bones/joints: Mild to moderate spine. No acute fracture or subluxation is seen. Soft tissues: Unremarkable. Lymph nodes: Unremarkable. No enlarged lymph nodes. IMPRESSION: 1. 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 2. 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 The thoracic graft terminates at the level of the diaphragm. There is a trace amount of contrast tracking along the inferior margin of the thoracic graft. There is an abdominal aortic stent graft in place with bilateral renal small goals. The grafts and stents are widely patent. The residual aneurysm sac in the infrarenal portion measures 3 cm. No endograft leakage or extravasation is seen. 3. There is diverticulosis throughout the colon. No evidence of acute diverticulitis. No acute inflammatory changes are seen involving the bowel. Electronically signed by: Triston Ricketts MD 01/12/23 21:22 PM Chest X-Ray 01/12/23 20:26 SINGLE VIEW CHEST CLINICAL HISTORY: Respiratory failure. Intubation. FINDINGS: An AP, portable, supine chest radiograph is compared to chest x-ray and chest CT performed earlier the same day 01/12/2023. The examination is degraded by portable technique, patient rotation, and apical lordotic positioning. An electronic device partially obscures the right lateral lung base. An endotracheal tube has been placed. The tip projects 2.5 cm above the gerson. An enteric tube has been placed. The tip projects below the diaphragm and is not visualized. A right jugular jugular central venous catheter is unchanged in position. The heart is enlarged. The pulmonary vasculature is noncongested. A stent graft is again seen in the thoracic aorta. Emphysema and chronic interstitial thickening similar to previous. There is bibasilar scarring/atelectasis. The lungs and pleural spaces are otherwise clear. No pneumothorax is seen. The skeletal structures are osteopenic. The bony thorax is grossly intact. IMPRESSION: 1. Endotracheal and enteric tubes have been placed as above. 2. Cardiomegaly and emphysema with no acute cardiopulmonary abnormality identified. ACT 112: Negative or not required by law. Electronically signed by: Mando Alfonso M.D. 01/13/2023 7:[address] 01/12/23 21:54 Exam(s): CT HEAD Without Contrast EXAM: CT Head Without Intravenous Contrast CLINICAL HISTORY: Reason for exam: unresponsive. TECHNIQUE: Axial computed tomography images of the head/brain without intravenous contrast. Automated exposure control was utilized for the study. A dose lowering technique was utilized adhering to the principles of ALARA. COMPARISON: March 29, 2022 FINDINGS: Brain: Mild diffuse cerebral atrophy and periventricular white matter low density consistent with chronic small vessel disease and/or senescent changes, unchanged. No acute large vessel infarct or intracranial hemorrhage is seen. There is contrast from recent CT angiogram. Ventricles: Mildly enlarged. No mass or hemorrhage. Bones/joints: Unremarkable. No acute fracture. Soft tissues: Unremarkable. Sinuses: Gas fluid levels involving the maxillary, sphenoid, and ethmoid sinuses suggesting acute sinusitis. Mastoid air cells: Unremarkable as visualized. No mastoid effusion. IMPRESSION: 1. Gas fluid levels involving the maxillary, sphenoid, and ethmoid sinuses suggesting acute sinusitis. 2. Mild diffuse cerebral atrophy and periventricular white matter low density consistent with chronic small vessel disease and/or senescent changes, unchanged. No acute large vessel infarct or intracranial hemorrhage is seen. There is contrast from recent CT angiogram. Electronically signed by: Triston Ricketts MD 01/12/23 22:57 PM Medications Administered Home Medications Medication Instructions Recorded Confirmed Last Taken aspirin 81 mg tablet,delayed 81 mg PO QAM 01/18/19 01/10/23 01/10/23 release (Nora Low Dose Aspirin) amlodipine 5 mg tablet 5 mg PO QAM 03/29/22 01/10/23 01/10/23 metoprolol tartrate 100 mg tablet 100 mg PO BID 03/29/22 01/10/23 01/10/23 08:00 simvastatin 40 mg tablet 40 mg PO HS 03/29/22 01/10/23 01/09/23 metformin 500 mg tablet 500 mg PO BIDM 09/30/22 01/10/23 01/10/23 08:00 acetaminophen 325 mg tablet 650 mg PO Q6H PRN Pain 01/10/23 01/10/23 Unknown (Tylenol) albuterol sulfate 90 mcg/actuation 2 puff inhalation Q6H PRN Wheezing 01/10/23 01/10/23 Unknown aerosol inhaler clopidogrel 75 mg tablet (Plavix) 75 mg PO QAM 01/10/23 01/10/23 01/10/23 fluticasone furoate 100 1 inh inhalation QAM 01/10/23 01/10/23 01/10/23 mcg-vilanterol 25 mcg/dose inhalation powder (Breo Ellipta) oxycodone 5 mg tablet 5 mg PO Q4H PRN Pain 01/10/23 01/10/23 Unknown polyethylene glycol 3350 17 17 g PO BID 01/10/23 01/10/23 01/10/23 08:00 gram/dose oral powder (Miralax) Active Medications Generic Name Dose Route Start Last Admin Trade Name Freq PRN Reason Stop Dose Admin Acetaminophen 650 mg 01/10/23 22:25 01/14/23 14:00 Acetaminophen 325 Mg Tab PO 02/09/23 22:24 650 mg Q6H PRN Administration Pain Albuterol 2 puffs 01/10/23 22:25 01/11/23 20:42 Albuterol Hfa 8 Gm Inhaler INH 02/09/23 22:24 2 puffs Q6H PRN Administration Wheezing Aspirin 81 mg 01/11/23 09:00 01/14/23 07:42 Aspirin 81 Mg Ectab PO 02/10/23 08:59 81 mg QAM GABY Administration Budesonide 0.25 mg 01/13/23 09:00 01/14/23 06:49 Budesonide 0.25 Mg/2 Ml Vial (Pulmicort) NEB 02/12/23 08:59 0.25 mg DAILY GABY Administration Calcium Carbonate 1,000 mg 01/11/23 20:43 01/12/23 05:45 Calcium Carbonate 500 Mg Chewable Tab PO 02/10/23 20:42 1,000 mg Q4H PRN Administration Indigestion Clopidogrel Bisulfate 75 mg 01/11/23 09:00 01/14/23 07:42 Clopidogrel Bisulfate 75 Mg Tab PO 02/10/23 08:59 75 mg QAM GABY Administration Formoterol Fumarate 20 mcg 01/13/23 09:00 01/14/23 06:49 Formoterol 20 Mcg/2 Ml Vial NEB 02/12/23 08:59 20 mcg DAILY GABY Administration Heparin Sodium (Porcine) 5,000 units 01/10/23 22:25 01/14/23 07:43 Heparin Sod 5,000 Unit/0.5 Ml Vial SQ 02/09/23 22:24 5,000 units Q12 GABY Administration Insulin Aspart 0 units 01/13/23 16:30 01/14/23 13:19 Insulin Aspart Per Unit Charge SC 02/12/23 16:29 Not Given ACHS GABY Ondansetron HCl 4 mg 01/10/23 22:25 01/12/23 12:42 Ondansetron Inj 2 Mg/Ml 2 Ml Vial IV 02/09/23 22:24 4 mg Q6H PRN Administration Nausea Polyethylene Glycol 17 gm 01/10/23 22:25 01/14/23 07:52 Polyethylene (Miralax) 17 Gm Pack PO 02/09/23 22:24 Not Given BID GABY Simvastatin 40 mg 01/10/23 22:25 01/12/23 22:53 Simvastatin 40 Mg Tab PO 02/09/23 22:24 Not Given HS GABY
--- NOTE | 2023-01-14 16:05 | Hospitalist Progress Note ---
Date of Service January 14, 2023 Assessment & Plan (1) Ambulatory dysfunction: (2) Generalized weakness: (3) ESRD (end stage renal disease) on dialysis: (4) History of thoracic aortic aneurysm repair: (5) Renal cell carcinoma: (6) GERD (gastroesophageal reflux disease): (7) Hypertension: (8) Diabetes mellitus, type 2: (9) CAD (coronary artery disease): (10) Malignant neoplasm of prostate: Plan cardiorespiratory arrest Patient had an episode of cardiorespiratory arrest on 01/12 He was feeling shaky, nauseous for which dialysis needed to be stopped earlier He was hypotensive and tachycardic CT angio of the chest abdomen and pelvis was ordered to see if his symptoms and signs had anything to do with his recent thoracic aneurysm repair CT angio was negative However soon after the contrast exposure, even though he was being premedicated, he went into cardiorespiratory arrest Unclear if the cardiorespiratory arrest was completely related to the contrast exposure (since he was feeling poorly all day yesterday) or if he has some issues with disequilibrium with dialysis or if this was related to the bacteremia (now that blood cultures are coming back positive) He is being treated with IV antibiotics Blood cultures positive for GPC's infectious disease on board Improved today: off of the vent, off of pressors Monitor clinically GPC bacteremia Infectious disease on board Patient has a femoral line that was placed on the night of 01/12 after the code. Blood cultures that came back positive were drawn before the line was placed Regardless the femoral line has no purpose at this point. It can come out. Ordered for the line to be pulled out ID recommended a right upper extremity nonvascular ultrasound to rule out abscess of the antecubital fossa Spoke to nephrology about the dialysis catheter. Vascular surgery not avai lable to remove the dialysis cath. The plan is to keep the dialysis catheter in until Tuesday when it can be removed by the vascular surgeon. We can use the dialysis catheter over the weekend to dialyze him before the catheter comes out. Patient also has recently placed endograft which is going to be the biggest concern if he is persistently bacteremic despite all the above measures. We will continue daptomycin which she has been started on Check echocardiogram to rule out vegetation Ambulatory dysfunction/generalized weakness- Status post prolonged stay in recovery from thoracic aneurysm repair patient was recently at [facility] where he had a thoracic aneurysm repair done. The family was under the impression that he was being discharged to a rehab facility but it ended up being [facility]. The patient is too weak and the family is not able to take care of him at [facility] and thus was brought into the emergency room PT/OT on board Case management on board Recent thoracic aneurysm repair CT angio of the chest, abdomen and pelvis was fairly unremarkable Vascular surgery involved. Appreciate their input. Follow-up in 6 months. Atrial fibrillation with rapid ventricular response Was seen in consultation by cardiology Currently fairly rate controlled He is at risk of thromboembolic events with an elevated [id number] score. We will hold off on anticoagulation for the time being May need to be started on low-dose Eliquis 2.5 twice daily with his dual antiplatelet therapy. ESRD on HD- patient was dialyzed today. Dialysis catheter may need to be pulled on Tuesday because of bacteremia. 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 Metoprolol, amlodipine held. Diabetes mellitus- Hold metformin. Should not be on metformin even on discharge given ESRD Placed on Accu-Cheks with NovoLog SSI Disposition- will likely need inpatient rehab versus SNF Admission and Anticipated Discharge Date Admission Date: January 10, 2023 Subjective patient feels well today. He is awake and alert. He has no questions or concerns. Currently on dialysis. Review of Systems Review of Systems: All systems reviewed & are unremarkable except as noted in Subjective Physical Exam Physical Exam: General: Awake, Conversant Heart: S1, S2/regular rate and rhythm, no murmur rubs or gallops Lungs: Clear to auscultation bilaterally. Normal effort Abdomen: Soft/nontender/nondistended. No hepatosplenomegaly Extremities: No clubbing/cyanosis. No edema Behavior: appropriate and cooperative Results & Data Results & Data Vital Signs (Past 12 Hours) Vital Signs Temp Pulse Pulse Resp BP BP Pulse Ox 01/14/23 13:15 37.3 C 109 H 114/72 01/14/23 13:00 105 H 151/68 H 01/14/23 12:30 107 H 148/71 H 01/14/23 12:00 110 H 141/91 H 01/14/23 11:30 111 H 153/88 H 01/14/23 11:00 104 H 151/88 H 01/14/23 10:43 36.9 C 108 H 17 132/83 97 01/14/23 10:30 109 H 134/76 01/14/23 10:28 36.9 C 115 H 18 143/64 H 96 01/14/23 10:07 135/64 01/14/23 10:07 107 H 24 96 01/14/23 10:06 36.9 C 105 H 15 135/64 97 01/14/23 10:01 114 H 30 H 97 01/14/23 10:01 128/77 01/14/23 10:00 108 H 30 H 84 L 01/14/23 10:00 105 H 128/70 01/14/23 09:45 102 H 28 H 95 01/14/23 09:45 134/75 01/14/23 09:45 102 H 134/75 01/14/23 09:30 36.8 C 100 H 01/14/23 09:02 131/73 01/14/23 09:02 113 H 20 93 01/14/23 09:00 115 H 15 90 01/14/23 08:32 137/89 01/14/23 08:32 113 H 18 90 01/14/23 08:00 103 H 39 H 96 01/14/23 08:00 01/14/23 08:00 36.8 C 01/14/23 07:41 116 H 20 85 L 01/14/23 07:41 139/76 01/14/23 07:15 100 H 26 H 94 01/14/23 06:49 100 H 17 94 01/14/23 06:15 107 H 23 88 L 01/14/23 06:00 101 H 24 128/77 95 01/14/23 05:54 128/77 01/14/23 05:54 99 H 18 87 L 01/14/23 05:45 99 H 26 H 98 01/14/23 05:31 109 H 46 H 95 01/14/23 05:30 111 H 24 84 L 01/14/23 05:15 99 H 32 H 134/73 99 01/14/23 05:00 134/73 01/14/23 05:00 99 H 26 H 99 01/14/23 04:45 100 H 27 H 96 01/14/23 04:30 96 H 24 96 01/14/23 04:15 95 H 18 86 L O2 Del Method O2 Flow Rate 01/14/23 13:15 01/14/23 13:00 01/14/23 12:30 01/14/23 12:00 01/14/23 11:30 01/14/23 11:00 01/14/23 10:43 3 01/14/23 10:30 01/14/23 10:28 3 01/14/23 10:07 01/14/23 10:07 01/14/23 10:06 3 01/14/23 10:01 01/14/23 10:01 01/14/23 10:00 01/14/23 10:00 01/14/23 09:45 01/14/23 09:45 01/14/23 09:45 01/14/23 09:30 01/14/23 09:02 01/14/23 09:02 01/14/23 09:00 01/14/23 08:32 01/14/23 08:32 01/14/23 08:00 01/14/23 08:00 Nasal Cannula 2 01/14/23 08:00 01/14/23 07:41 01/14/23 07:41 01/14/23 07:15 01/14/23 06:49 Nasal Cannula 3 01/14/23 06:15 01/14/23 06:00 01/14/23 05:54 01/14/23 05:54 01/14/23 05:45 01/14/23 05:31 01/14/23 05:30 01/14/23 05:15 01/14/23 05:00 01/14/23 05:00 01/14/23 04:45 01/14/23 04:30 01/14/23 04:15 Laboratory Results Abnormal lab results 01/12/23 01/12/23 01/13/23 Range/Units 15:48 21:40 00:13 RBC (4.70-6.10) M/uL Hgb (14.0-18.0) g/dl POC Hgb 7.8 L (14.0-18.0) g/dl Hct (42.0-52.0) % POC Hct 23 L (42-52) % Reticulocyte % (Auto) (0.5-2.0) % POC pH (7.35-7.45) POC pCO2 (35-46) mmHg POC pO2 167 H (80-95) mmHg POC HCO3 25 H (19-24) vince/L POC Total CO2 (24-31) mmol/L ABG pH (Temp Correct) (7.35-7.45) ABG pCO2 (Temp Corrct (35-46) mmHg POC ABG O2 Sat 100.0 H (90-95) % POC Sodium (135-144) mmol/L BUN (6-23) mg/dl Creatinine (0.6-1.4) mg/dl BUN/Creatinine Ratio (10-20) Glucose (70-99(Fasting)) mg/dl POC Glucose (70-99) mg/dl POC Glucose (other) 335 H (70-99) mg/dl Calcium (8.6-10.3) mg/dl Phosphorus (2.5-4.9) mg/dl Transferrin (200-360) mg/dl Ferritin (8-388) ng/ml Troponin I High Sens (0-20) pg/ml Albumin (3.4-5.0) gm/dl Staphylococcus sp PCR DETECTED A (NotDetected) mecA/C-Methicil Resis Gene DETECTED A (NotDetected) Staph epidermidis (PCR) DETECTED A (NotDetected) Crossmatch 01/13/23 01/13/23 01/13/23 Range/Units 01:57 03:27 04:14 RBC (4.70-6.10) M/uL Hgb (14.0-18.0) g/dl POC Hgb 8.2 L (14.0-18.0) g/dl Hct (42.0-52.0) % POC Hct 24 L (42-52) % Reticulocyte % (Auto) (0.5-2.0) % POC pH 7.46 H (7.35-7.45) POC pCO2 29 L (35-46) mmHg POC pO2 78 L (80-95) mmHg POC HCO3 (19-24) vince/L POC Total CO2 21 L (24-31) mmol/L ABG pH (Temp Correct) 7.454 H (7.35-7.45) ABG pCO2 (Temp Corrct 29 L (35-46) mmHg POC ABG O2 Sat 96.0 H (90-95) % POC Sodium 133 L (135-144) mmol/L BUN (6-23) mg/dl Creatinine (0.6-1.4) mg/dl BUN/Creatinine Ratio (10-20) Glucose (70-99(Fasting)) mg/dl POC Glucose (70-99) mg/dl POC Glucose (other) 355 H* 319 H (70-99) mg/dl Calcium (8.6-10.3) mg/dl Phosphorus (2.5-4.9) mg/dl Transferrin (200-360) mg/dl Ferritin (8-388) ng/ml Troponin I High Sens (0-20) pg/ml Albumin (3.4-5.0) gm/dl Staphylococcus sp PCR (NotDetected) mecA/C-Methicil Resis Gene (NotDetected) Staph epidermidis (PCR) (NotDetected) Crossmatch 01/13/23 01/13/23 01/13/23 Range/Units 05:18 06:17 07:34 RBC (4.70-6.10) M/uL Hgb (14.0-18.0) g/dl POC Hgb (14.0-18.0) g/dl Hct (42.0-52.0) % POC Hct (42-52) % Reticulocyte % (Auto) (0.5-2.0) % POC pH (7.35-7.45) POC pCO2 (35-46) mmHg POC pO2 (80-95) mmHg POC HCO3 (19-24) vince/L POC Total CO2 (24-31) mmol/L ABG pH (Temp Correct) (7.35-7.45) ABG pCO2 (Temp Corrct (35-46) mmHg POC ABG O2 Sat (90-95) % POC Sodium (135-144) mmol/L BUN (6-23) mg/dl Creatinine (0.6-1.4) mg/dl BUN/Creatinine Ratio (10-20) Glucose (70-99(Fasting)) mg/dl POC Glucose (70-99) mg/dl POC Glucose (other) 286 H 251 H 205 H (70-99) mg/dl Calcium (8.6-10.3) mg/dl Phosphorus (2.5-4.9) mg/dl Transferrin (200-360) mg/dl Ferritin (8-388) ng/ml Troponin I High Sens (0-20) pg/ml Albumin (3.4-5.0) gm/dl Staphylococcus sp PCR (NotDetected) mecA/C-Methicil Resis Gene (NotDetected) Staph epidermidis (PCR) (NotDetected) Crossmatch 01/13/23 01/13/23 01/13/23 Range/Units 08:10 08:35 10:40 RBC (4.70-6.10) M/uL Hgb (14.0-18.0) g/dl POC Hgb 9.2 L (14.0-18.0) g/dl Hct (42.0-52.0) % POC Hct 27 L (42-52) % Reticulocyte % (Auto) (0.5-2.0) % POC pH 7.17 L* (7.35-7.45) POC pCO2 57 H (35-46) mmHg POC pO2 134 H (80-95) mmHg POC HCO3 (19-24) vince/L POC Total CO2 22 L (24-31) mmol/L ABG pH (Temp Correct) 7.158 L* (7.35-7.45) ABG pCO2 (Temp Corrct 58 H (35-46) mmHg POC ABG O2 Sat 98.0 H (90-95) % POC Sodium (135-144) mmol/L BUN (6-23) mg/dl Creatinine (0.6-1.4) mg/dl BUN/Creatinine Ratio (10-20) Glucose (70-99(Fasting)) mg/dl POC Glucose (70-99) mg/dl POC Glucose (other) 186 H 100 H (70-99) mg/dl Calcium (8.6-10.3) mg/dl Phosphorus (2.5-4.9) mg/dl Transferrin (200-360) mg/dl Ferritin (8-388) ng/ml Troponin I High Sens (0-20) pg/ml Albumin (3.4-5.0) gm/dl Staphylococcus sp PCR (NotDetected) mecA/C-Methicil Resis Gene (NotDetected) Staph epidermidis (PCR) (NotDetected) Crossmatch 01/13/23 01/13/23 01/14/23 Range/Units 20:06 22:25 03:36 RBC 2.22 L (4.70-6.10) M/uL Hgb 6.7 L* (14.0-18.0) g/dl POC Hgb (14.0-18.0) g/dl Hct 19.8 L* (42.0-52.0) % POC Hct (42-52) % Reticulocyte % (Auto) 2.1 H (0.5-2.0) % POC pH (7.35-7.45) POC pCO2 (35-46) mmHg POC pO2 (80-95) mmHg POC HCO3 (19-24) vince/L POC Total CO2 (24-31) mmol/L ABG pH (Temp Correct) (7.35-7.45) ABG pCO2 (Temp Corrct (35-46) mmHg POC ABG O2 Sat (90-95) % POC Sodium (135-144) mmol/L BUN 47 H (6-23) mg/dl Creatinine 6.18 H* D (0.6-1.4) mg/dl BUN/Creatinine Ratio 7.6 L (10-20) Glucose 158 H (70-99(Fasting)) mg/dl POC Glucose 147 H (70-99) mg/dl POC Glucose (other) (70-99) mg/dl Calcium 8.5 L (8.6-10.3) mg/dl Phosphorus 5.2 H (2.5-4.9) mg/dl Transferrin 117 L (200-360) mg/dl Ferritin 2664.0 H (8-388) ng/ml Troponin I High Sens 206.5 H* D (0-20) pg/ml Albumin 2.7 L (3.4-5.0) gm/dl Staphylococcus sp PCR (NotDetected) mecA/C-Methicil Resis Gene (NotDetected) Staph epidermidis (PCR) (NotDetected) Crossmatch 01/14/23 01/14/23 01/14/23 Range/Units 06:03 07:24 14:38 RBC (4.70-6.10) M/uL Hgb 7.8 L (14.0-18.0) g/dl POC Hgb (14.0-18.0) g/dl Hct 23.7 L (42.0-52.0) % POC Hct (42-52) % Reticulocyte % (Auto) (0.5-2.0) % POC pH (7.35-7.45) POC pCO2 (35-46) mmHg POC pO2 (80-95) mmHg POC HCO3 (19-24) vince/L POC Total CO2 (24-31) mmol/L ABG pH (Temp Correct) (7.35-7.45) ABG pCO2 (Temp Corrct (35-46) mmHg POC ABG O2 Sat (90-95) % POC Sodium (135-144) mmol/L BUN (6-23) mg/dl Creatinine (0.6-1.4) mg/dl BUN/Creatinine Ratio (10-20) Glucose (70-99(Fasting)) mg/dl POC Glucose 177 H (70-99) mg/dl POC Glucose (other) (70-99) mg/dl Calcium (8.6-10.3) mg/dl Phosphorus (2.5-4.9) mg/dl Transferrin (200-360) mg/dl Ferritin (8-388) ng/ml Troponin I High Sens (0-20) pg/ml Albumin (3.4-5.0) gm/dl Staphylococcus sp PCR (NotDetected) mecA/C-Methicil Resis Gene (NotDetected) Staph epidermidis (PCR) (NotDetected) Crossmatch See Detail 01/14/23 Range/Units 16:20 RBC (4.70-6.10) M/uL Hgb (14.0-18.0) g/dl POC Hgb (14.0-18.0) g/dl Hct (42.0-52.0) % POC Hct (42-52) % Reticulocyte % (Auto) (0.5-2.0) % POC pH (7.35-7.45) POC pCO2 (35-46) mmHg POC pO2 (80-95) mmHg POC HCO3 (19-24) vince/L POC Total CO2 (24-31) mmol/L ABG pH (Temp Correct) (7.35-7.45) ABG pCO2 (Temp Corrct (35-46) mmHg POC ABG O2 Sat (90-95) % POC Sodium (135-144) mmol/L BUN (6-23) mg/dl Creatinine (0.6-1.4) mg/dl BUN/Creatinine Ratio (10-20) Glucose (70-99(Fasting)) mg/dl POC Glucose 111 H (70-99) mg/dl POC Glucose (other) (70-99) mg/dl Calcium (8.6-10.3) mg/dl Phosphorus (2.5-4.9) mg/dl Transferrin (200-360) mg/dl Ferritin (8-388) ng/ml Troponin I High Sens (0-20) pg/ml Albumin (3.4-5.0) gm/dl Staphylococcus sp PCR (NotDetected) mecA/C-Methicil Resis Gene (NotDetected) Staph epidermidis (PCR) (NotDetected) Crossmatch PG Care Time/CCT Total # of Minutes Spent Total Time Spent with Patient: Total time spent is greater than 50% in coordination of care (as documented) at patient's floor/unit and/or counseling patient: Coding Level of Care Code 03028 SUB INP/OBS CARE 2/35MIN Diagnoses Ambulatory dysfunction R26.2 Generalized weakness R53.1 ESRD (end stage renal disease) on dialysis N18.6; Z99.2 History of thoracic aortic aneurysm repair Z98.890; Z86.79 Renal cell carcinoma C64.9 GERD (gastroesophageal reflux disease) K21.9 Hypertension, unspecified type I10 Hypertension type: unspecified Type 2 diabetes mellitus with other circulatory complication, without long-term current use of insulin E11.59 Diabetes mellitus terminal gauger supervisor insulin use: without jail use Diabetes mellitus complication status: with circulatory complication Diabetes mellitus complication detail: with other circulatory complications Coronary artery disease involving [place] coronary artery of [place] heart without angina pectoris I25.10 Coronary Disease-Associated Artery/Lesion type: [place] artery [place] vs. transplanted heart: [place] heart Associated angina: without angina Malignant neoplasm of prostate C61 (7) Hypertension Hypertension type: unspecified Qualified Code(s): I10 - Essential (primary) hypertension (8) Diabetes mellitus, type 2 Diabetes mellitus jail insulin use: without terminal gauger supervisor use Diabetes mellitus complication status: with circulatory complication Diabetes mellitus complication detail: with other circulatory complications Qualified Code(s): E11.59 - Type 2 diabetes mellitus with other circulatory complications (9) CAD (coronary artery disease) Coronary Disease-Associated Artery/Lesion type: [place] artery [place] vs. transplanted heart: [place] heart Associated angina: without angina Qualified Code(s): I25.10 - Atherosclerotic heart disease of [place] coronary artery without angina pectoris
--- NOTE | 2023-01-14 17:01 | Cardiology Progress Note ---
Date of Service January 14, 2023 Assessment & Plan (1) History of thoracic aortic aneurysm repair: (2) Atrial fibrillation: (3) CAD (coronary artery disease): Plan 1. Atrial fibrillation: No recurrence. Now in a rhythm with frequent PACs. Would restart his metoprolol when blood pressure allows. Perhaps a lower dose, 50 mg twice daily to start. Again, at some point considering systemic anticoagulation with reduced dose Eliquis would be reasonable. This must be considered in light of his notable anemia and risk for bleeding on 3 agents. 2. Coronary artery disease: Remote history of PCI likely to the RCA in 2000. No current symptoms suggestive of coronary insufficiency or angina. Continue aggressive secondary prevention with anti-platelet agents and simvastatin 3. Thoracic aortic dissection: Status post recent stent procedure. No current symptoms of back pain. Good perfusion of both lower extremities. Normotensive. CT scan of the thorax and abdomen did not reveal any evidence of leakage. 4. Elevated troponin: Elevated biomarkers in the setting of hypotension and bradycardia last evening. I do not think this is indicative of an acute coronary syndrome. Supportive treatment. 5. Bradycardia: In the setting of his presumed hypercapnic arrest. Also suspect there was an element of high vagal tone given the circumstances and associated hypotension. Normal heart rates currently. No history of symptomatic bradycardia. Bradycardia was all sinus and quite mild. I do not think this is a current indication for a pacemaker. 6. Cardiac arrest: Unknown etiology. Hemodynamically stable at this time. I will be away from the hospital for the next 2 days. Therapy concerns regarding his care additional questions regarding his cardiac situation, please contact the on-call [facility] furnace helper Admission and Anticipated Discharge Date Admission Date: January 10, 2023 Subjective This afternoon the patient was not feeling well. He had some difficulty characterizing this statement. He did seem confused at times. He did not report any specific pain. He denies any breathing difficulty. He seems somewhat confused about being out of bed earlier today. Some nausea. Review of Systems Review of Systems: Per HPI Physical Exam Physical Exam: The patient is alert and oriented. Mood and affect appeared normal. He answered all questions appropriately. HEENT: Pupils are equal and reactive to light and accommodation. Extraocular movements are intact. The sclerae are anicteric. Neuro: Cranial nerves intact Lungs: Normal respiratory effort. No expiratory wheezing. Cardiac: Heart demonstrates a regular rate and rhythm with frequent ectopy. Normal S1 and S2. No murmurs on examination. Pulses: The patient has palpable radial pulses bilaterally that are equal in intensity. Good perfusion of the lower extremities. Skin: I did not appreciate any rashes on examination today. Results & Data Vital Signs (Past 12 Hours) Vital Signs Temp Pulse Pulse Resp BP BP Pulse Ox 01/14/23 13:15 37.3 C 109 H 114/72 01/14/23 13:00 105 H 151/68 H 01/14/23 12:30 107 H 148/71 H 01/14/23 12:00 110 H 141/91 H 01/14/23 11:30 111 H 153/88 H 01/14/23 11:00 104 H 151/88 H 01/14/23 10:43 36.9 C 108 H 17 132/83 97 01/14/23 10:30 109 H 134/76 01/14/23 10:28 36.9 C 115 H 18 143/64 H 96 01/14/23 10:07 135/64 01/14/23 10:07 107 H 24 96 01/14/23 10:06 36.9 C 105 H 15 135/64 97 01/14/23 10:01 114 H 30 H 97 01/14/23 10:01 128/77 01/14/23 10:00 108 H 30 H 84 L 01/14/23 10:00 105 H 128/70 01/14/23 09:45 102 H 28 H 95 01/14/23 09:45 134/75 01/14/23 09:45 102 H 134/75 01/14/23 09:30 36.8 C 100 H 01/14/23 09:02 131/73 01/14/23 09:02 113 H 20 93 01/14/23 09:00 115 H 15 90 01/14/23 08:32 137/89 01/14/23 08:32 113 H 18 90 01/14/23 08:00 103 H 39 H 96 01/14/23 08:00 01/14/23 08:00 36.8 C 01/14/23 07:41 116 H 20 85 L 01/14/23 07:41 139/76 01/14/23 07:15 100 H 26 H 94 01/14/23 06:49 100 H 17 94 01/14/23 06:15 107 H 23 88 L 01/14/23 06:00 101 H 24 128/77 95 01/14/23 05:54 128/77 01/14/23 05:54 99 H 18 87 L 01/14/23 05:45 99 H 26 H 98 01/14/23 05:31 109 H 46 H 95 01/14/23 05:30 111 H 24 84 L 01/14/23 05:15 99 H 32 H 134/73 99 01/14/23 05:00 134/73 01/14/23 05:00 99 H 26 H 99 O2 Del Method O2 Flow Rate 01/14/23 13:15 01/14/23 13:00 01/14/23 12:30 01/14/23 12:00 01/14/23 11:30 01/14/23 11:00 01/14/23 10:43 3 01/14/23 10:30 01/14/23 10:28 3 01/14/23 10:07 01/14/23 10:07 01/14/23 10:06 3 01/14/23 10:01 01/14/23 10:01 01/14/23 10:00 01/14/23 10:00 01/14/23 09:45 01/14/23 09:45 01/14/23 09:45 01/14/23 09:30 01/14/23 09:02 01/14/23 09:02 01/14/23 09:00 01/14/23 08:32 01/14/23 08:32 01/14/23 08:00 01/14/23 08:00 Nasal Cannula 2 01/14/23 08:00 01/14/23 07:41 01/14/23 07:41 01/14/23 07:15 01/14/23 06:49 Nasal Cannula 3 01/14/23 06:15 01/14/23 06:00 01/14/23 05:54 01/14/23 05:54 01/14/23 05:45 01/14/23 05:31 01/14/23 05:30 01/14/23 05:15 01/14/23 05:00 01/14/23 05:00 Laboratory Results Abnormal Lab Results 01/12/23 01/12/23 01/13/23 15:48 21:40 00:13 WBC RBC Hgb POC Hgb 7.8 L Hct POC Hct 23 L MCV MCH MCHC RDW Std Deviation RDW Coeff of Gennaro Plt Count MPV Reticulocyte % (Auto) Reticulocyte # Sample Site Art Line POC pH 7.40 POC pCO2 41 POC pO2 167 H POC HCO3 25 H POC Total CO2 26 POC Base Excess 0.0 ABG pH (Temp Correct) 7.397 ABG pCO2 (Temp Corrct 41 POC ABG pO2 at Pt Temp 168 POC ABG O2 Sat 100.0 H Logan Test NA O2 Delivery Device Ventilator POC O2 Rate 26 Minute Ventilation POC FiO2 60 Tidal Volume 450 PEEP 8 POC Sodium 136 Sodium POC Potassium 4.1 Potassium Chloride Carbon Dioxide Anion Gap BUN Creatinine Est Cr Clr Drug Dosing Est GFR ( Amer) Est GFR (Non-Af Amer) BUN/Creatinine Ratio Glucose POC Glucose POC Glucose (other) 335 H Calcium Phosphorus Magnesium Iron Transferrin Ferritin Troponin I High Sens Albumin Vitamin B12 Folate Staphylococcus sp PCR DETECTED A mecA/C-Methicil Resis Gene DETECTED A Staph epidermidis (PCR) DETECTED A Bld Cult ID Panel PCR See PCR Comment Blood Type Antibody Screen Crossmatch 01/13/23 01/13/23 01/13/23 01:57 03:27 04:14 WBC RBC Hgb POC Hgb 8.2 L Hct POC Hct 24 L MCV MCH MCHC RDW Std Deviation RDW Coeff of [place]enn[place] Plt Count MPV Reticulocyte % (Auto) Reticulocyte # Sample Site L Femoral POC pH 7.46 H POC pCO2 29 L POC pO2 78 L POC HCO3 20 POC Total CO2 21 L POC Base Excess -4.0 ABG pH (Temp Correct) 7.454 H ABG pCO2 (Temp Corrct 29 L POC ABG pO2 at Pt Temp 80 POC ABG O2 Sat 96.0 H Logan Test NA O2 Delivery Device Ventilator POC O2 Rate 26 Minute Ventilation POC FiO2 40 Tidal Volume 450 PEEP 8 POC Sodium 133 L Sodium POC Potassium 4.3 Potassium Chloride Carbon Dioxide Anion Gap BUN Creatinine Est Cr Clr Drug Dosing Est GFR ( Amer) Est GFR (Non-Af Amer) BUN/Creatinine Ratio Glucose POC Glucose POC Glucose (other) 355 H* 319 H Calcium Phosphorus Magnesium Iron Transferrin Ferritin Troponin I High Sens Albumin Vitamin B12 Folate Staphylococcus sp PCR mecA/C-Methicil Resis Gene Staph epidermidis (PCR) Bld Cult ID Panel PCR Blood Type Antibody Screen Crossmatch 01/13/23 01/13/23 01/13/23 05:18 06:17 07:34 WBC RBC Hgb POC Hgb Hct POC Hct MCV MCH MCHC RDW Std Deviation RDW Coeff of [place]enn[place] Plt Count MPV Reticulocyte % (Auto) Reticulocyte # Sample Site POC pH POC pCO2 POC pO2 POC HCO3 POC Total CO2 POC Base Excess ABG pH (Temp Correct) ABG pCO2 (Temp Corrct POC ABG pO2 at Pt Temp POC ABG O2 Sat Logan Test O2 Delivery Device POC O2 Rate Minute Ventilation POC FiO2 Tidal Volume PEEP POC Sodium Sodium POC Potassium Potassium Chloride Carbon Dioxide Anion Gap BUN Creatinine Est Cr Clr Drug Dosing Est GFR ( Amer) Est GFR (Non-Af Amer) BUN/Creatinine Ratio Glucose POC Glucose POC Glucose (other) 286 H 251 H 205 H Calcium Phosphorus Magnesium Iron Transferrin Ferritin Troponin I High Sens Albumin Vitamin B12 Folate Staphylococcus sp PCR mecA/C-Methicil Resis Gene Staph epidermidis (PCR) Bld Cult ID Panel PCR Blood Type Antibody Screen Crossmatch 01/13/23 01/13/23 01/13/23 08:10 08:35 10:40 WBC RBC Hgb POC Hgb 9.2 L Hct POC Hct 27 L MCV MCH MCHC RDW Std Deviation RDW Coeff of Gennaro Plt Count MPV Reticulocyte % (Auto) Reticulocyte # Sample Site Art Line POC pH 7.17 L* POC pCO2 57 H POC pO2 134 H POC HCO3 21 POC Total CO2 22 L POC Base Excess -8.0 ABG pH (Temp Correct) 7.158 L* ABG pCO2 (Temp Corrct 58 H POC ABG pO2 at Pt Temp 137 POC ABG O2 Sat 98.0 H Logan Test NA O2 Delivery Device Ventilator POC O2 Rate 22 Minute Ventilation 9.9 POC FiO2 40 Tidal Volume 450 PEEP 6 POC Sodium 137 Sodium POC Potassium 3.7 Potassium Chloride Carbon Dioxide Anion Gap BUN Creatinine Est Cr Clr Drug Dosing Est GFR ( Amer) Est GFR (Non-Af Amer) BUN/Creatinine Ratio Glucose POC Glucose POC Glucose (other) 186 H 100 H Calcium Phosphorus Magnesium Iron Transferrin Ferritin Troponin I High Sens Albumin Vitamin B12 Folate Staphylococcus sp PCR mecA/C-Methicil Resis Gene Staph epidermidis (PCR) Bld Cult ID Panel PCR Blood Type Antibody Screen Crossmatch 01/13/23 01/13/23 01/14/23 20:06 22:25 03:36 WBC 8.00 RBC 2.22 L Hgb 6.7 L* POC Hgb Hct 19.8 L* POC Hct MCV 89.2 MCH 30.2 MCHC 33.8 RDW Std Deviation 41.6 RDW Coeff of Gennaro 12.7 Plt Count 182 MPV 10.8 Reticulocyte % (Auto) 2.1 H Reticulocyte # 0.05 Sample Site POC pH POC pCO2 POC pO2 POC HCO3 POC Total CO2 POC Base Excess ABG pH (Temp Correct) ABG pCO2 (Temp Corrct POC ABG pO2 at Pt Temp POC ABG O2 Sat Logan Test O2 Delivery Device POC O2 Rate Minute Ventilation POC FiO2 Tidal Volume PEEP POC Sodium Sodium 137 POC Potassium Potassium 4.3 Chloride 99 Carbon Dioxide 27 Anion Gap 11 BUN 47 H Creatinine 6.18 H* D Est Cr Clr Drug Dosing 11.0 Est GFR ( Amer) 9.5 Est GFR (Non-Af Amer) 8.2 BUN/Creatinine Ratio 7.6 L Glucose 158 H POC Glucose 147 H POC Glucose (other) Calcium 8.5 L Phosphorus 5.2 H Magnesium 1.8 Iron 106 Transferrin 117 L Ferritin 2664.0 H Troponin I High Sens 206.5 H* D Albumin 2.7 L Vitamin B12 640 Folate Cancelled Staphylococcus sp PCR mecA/C-Methicil Resis Gene Staph epidermidis (PCR) Bld Cult ID Panel PCR Blood Type Antibody Screen Crossmatch 01/14/23 01/14/23 01/14/23 03:36 06:03 07:24 WBC RBC Hgb POC Hgb Hct POC Hct MCV MCH MCHC RDW Std Deviation RDW Coeff of Gennaro Plt Count MPV Reticulocyte % (Auto) Reticulocyte # Sample Site POC pH POC pCO2 POC pO2 POC HCO3 POC Total CO2 POC Base Excess ABG pH (Temp Correct) ABG pCO2 (Temp Corrct POC ABG pO2 at Pt Temp POC ABG O2 Sat Logan Test O2 Delivery Device POC O2 Rate Minute Ventilation POC FiO2 Tidal Volume PEEP POC Sodium Sodium POC Potassium Potassium Chloride Carbon Dioxide Anion Gap BUN Creatinine Est Cr Clr Drug Dosing Est GFR ( Amer) Est GFR (Non-Af Amer) BUN/Creatinine Ratio Glucose POC Glucose 177 H POC Glucose (other) Calcium Phosphorus Magnesium Iron Transferrin Ferritin Troponin I High Sens Albumin Vitamin B12 Folate 6.53 Staphylococcus sp PCR mecA/C-Methicil Resis Gene Staph epidermidis (PCR) Bld Cult ID Panel PCR Blood Type A Positive Antibody Screen NEGATIVE Crossmatch See Detail 01/14/23 01/14/23 01/14/23 11:30 14:38 16:20 WBC RBC Hgb 7.8 L POC Hgb Hct 23.7 L POC Hct MCV MCH MCHC RDW Std Deviation RDW Coeff of Gnenaro Plt Count MPV Reticulocyte % (Auto) Reticulocyte # Sample Site POC pH POC pCO2 POC pO2 POC HCO3 POC Total CO2 POC Base Excess ABG pH (Temp Correct) ABG pCO2 (Temp Corrct POC ABG pO2 at Pt Temp POC ABG O2 Sat Logan Test O2 Delivery Device POC O2 Rate Minute Ventilation POC FiO2 Tidal Volume PEEP POC Sodium Sodium POC Potassium Potassium Chloride Carbon Dioxide Anion Gap BUN Creatinine Est Cr Clr Drug Dosing Est GFR ( Amer) Est GFR (Non-Af Amer) BUN/Creatinine Ratio Glucose POC Glucose 99 111 H POC Glucose (other) Calcium Phosphorus Magnesium Iron Transferrin Ferritin Troponin I High Sens Albumin Vitamin B12 Folate Staphylococcus sp PCR mecA/C-Methicil Resis Gene Staph epidermidis (PCR) Bld Cult ID Panel PCR Blood Type Antibody Screen Crossmatch PG Care Time/CCT Total # of Minutes Spent Total Time Spent with Patient: Total time spent is greater than 50% in coordination of care (as documented) at patient's floor/unit and/or counseling patient: Coding Level of Care Code 77064 SUB INP/OBS CARE 2/35MIN Diagnoses History of thoracic aortic aneurysm repair Z98.890; Z86.79 Atrial fibrillation I48.91 Coronary artery disease involving [place] coronary artery of [place] heart without angina pectoris I25.10 Coronary Disease-Associated Artery/Lesion type: [place] artery [place] vs. transplanted heart: [place] heart Associated angina: without angina (3) CAD (coronary artery disease) Coronary Disease-Associated Artery/Lesion type: [place] artery [place] vs. transplanted heart: [place] heart Associated angina: without angina Qualified Code(s): I25.10 - Atherosclerotic heart disease of [place] coronary artery without angina pectoris
[2023-01-14 18:27] LABS: Hematocrit (blood only) 22.3 % (42.0-52.0); Hemoglobin 7.2 g/dl (14.0-18.0)
[2023-01-14] MEDS: SIMVASTATIN 40 MG TAB PO SCH (20:45)
--- NOTE | 2023-01-14 21:41 | Ultrasound Report ---
Exam(s): US EXTREMITY EXAM: US Right Upper Extremity Non-Vascular, Complete CLINICAL HISTORY: Reason for exam: RUE AC fossa swelling r/o abscess. TECHNIQUE: Real-time ultrasound scan of the right upper extremity with image documentation. COMPARISON: No relevant prior studies available. FINDINGS: Soft tissues: Unremarkable. No foreign body. No soft tissue abscess is seen. Superficial veins: There is RIGHT basilic vein thrombosis. IMPRESSION: No evidence of soft tissue abscess Electronically signed by: Damien Bedolla MD 01/14/23 21:41 PM
[2023-01-15] MEDS ORDERED: DAPTOmycin 275 MG in SYRINGE 0 ML IV SCH
[2023-01-15] MEDS ORDERED: DAPTOmycin 400 MG in SYRINGE 0 ML IV SCH
[2023-01-15] MEDS: ACETAMINOPHEN 325 MG TAB PO PRN ×3 (01:26→21:39)
[2023-01-15 02:00] LABS: Hematocrit (blood only) 24.3 % (42.0-52.0); Hemoglobin 7.8 g/dl (14.0-18.0); Mean Corpuscular Hemoglobin 29.5 pg (25.0-34.0); Mean Corpuscular Hgb Conc 32.1 g/dL (32.0-36.0); Mean Platelet Volume 10.2 fL (9.4-12.4); Nucleated RBC # (auto) 0.03 K/uL (0.00-0.12); Nucleated RBC % (auto) 0.4 %; Platelet Count 190 K/uL (130-400); RDW Coefficient of Variation 13.2 % (11.5-14.5); RDW Standard Deviation 43.5 fL (36.4-46.3); Red Blood Count 2.64 M/uL (4.70-6.10); White Blood Count 6.98 K/ul (4.8-10.8)
[2023-01-15 02:48] LABS: BUN Creatinine Ratio 5.9 (10-20); Calcium 8.4 mg/dl (8.6-10.3); Creatinine Clr Calc Pharmacy 18.9 ml/min; Est GFR (African American) 18.6 ml/min; Potassium 3.5 mmol/L (3.5-5.1)
[2023-01-15 04:17] LABS: BUN Creatinine Ratio 5.3 (10-20); Calcium 8.3 mg/dl (8.6-10.3); Creatinine Clr Calc Pharmacy 18.7 ml/min; Est GFR (African American) 18.3 ml/min; Est GFR (Non-African American) 15.8 ml/min; Magnesium 1.9 mg/dl (1.7-2.4); Phosphorus 3.1 mg/dl (2.5-4.9); Potassium 3.6 mmol/L (3.5-5.1)
[2023-01-15] MEDS: BUDESONIDE 0.25 MG/2 ML VIAL (PULMICORT) NEB SCH (06:54)
[2023-01-15] MEDS: FORMOTEROL 20 MCG/2 ML VIAL NEB SCH (06:54)
[2023-01-15] MEDS: CLOPIDOGREL BISULFATE 75 MG TAB PO SCH (07:52)
[2023-01-15] MEDS: ASPIRIN 81 MG ECTAB PO SCH (07:52)
[2023-01-15] MEDS: HEPARIN SOD 5,000 UNIT/0.5 ML VIAL SQ SCH ×2 (07:53→21:38)
[2023-01-15] MEDS: INSULIN ASPART PER UNIT CHARGE SC SCH ×4 (07:55→21:38)
[2023-01-15] MEDS: POLYETHYLENE (MIRALAX) 17 GM PACK PO SCH ×2 (07:55→21:38)
[2023-01-15 09:10] LABS: A calco-baum cmplx NotReported Not Detected (NotDetected); Bact fragilis Not Reported Not Detected (NotDetected); C auris Not Reported Not Detected (NotDetected); Calbicans Not Reported Not Detected (NotDetected); Candida glabrata Not Reported Not Detected (NotDetected); Candida krusei Not Reported Not Detected (NotDetected); Cneoformans/gatti Not Reported Not Detected (NotDetected); Cparapsilosis Not Reported Not Detected (NotDetected); E cloacae compx Not Reported Not Detected (NotDetected); Efaecalis Not Reported DETECTED (NotDetected); Efaecium Not Reported Not Detected (NotDetected); Enterobacterales Not Reported Not Detected (NotDetected); Escherichia coli Not Reported Not Detected (NotDetected); H influenzae Not Reported Not Detected (NotDetected); K aerogenes Not Reported Not Detected (NotDetected); Koxytoca Not Reported Not Detected (NotDetected); Kpneumoniae grp Not Reported Not Detected (NotDetected); Lmonocyt Not Reported Not Detected (NotDetected); N meningitidis Not Reported Not Detected (NotDetected); P aeruginosa Not Reported Not Detected (NotDetected); Proteus spp Not Reported Not Detected (NotDetected); Salmonella spp Not Reported Not Detected (NotDetected); Smarcescens Not Reported Not Detected (NotDetected); Staph lugdunensis Not Reported Not Detected (NotDetected); Staph spp. Not Reported DETECTED (NotDetected); Staphaureus Not Reported Not Detected (NotDetected); Staphepi Not Reported DETECTED (NotDetected); Staphylococcus spp. DETECTED (NotDetected); Stenmaltophilia Not Reported Not Detected (NotDetected); Strep agal(GrpB) Not Reported Not Detected (NotDetected); Strep pneum Not Reported Not Detected (NotDetected); Strep pyog (GrpA) Not Reported Not Detected (NotDetected); Strep spp Not Reported Not Detected (NotDetected); VanAB Resistant Gene VRE Not Detected (NotDetected); mecAC Resistant Gene DETECTED (NotDetected)
--- NOTE | 2023-01-15 09:34 | Nephrology Progress Note ---
Date of Service January 15, 2023 Assessment & Plan (1) CAROLINA (acute kidney injury): Plan: * [place] due to bilateral renal infarcts and IV contrast administration * Patient is currently dialysis dependent * UO only 295 cc last 24 hours * Patient was last dialyzed 01/14/23 for 1L UF and 2 U PRBC. There were no complications reported * Volume status and electrolyte balance are currently acceptable. No acute indication for HD today (2) History of thoracic aortic aneurysm repair: Plan: * Type B aortic aneurysm dissection s/p EVAR w/ bilateral renal artery stenting at [facility] 12/23/22 (3) Gram-positive bacteremia: Plan: * 01/13/23 blood culture - preliminary is G+ cocci in chains * On IV Daptomycin * Several potential sources for infection. Await follow up blood culture, If persistent, may need IJ TCC removed by Vascular Surgery on Tuesday (4) Anemia: Plan: * Hgb 7.8 this am * Epogen 08223 units will be provided with HD 01/14/23 * Iron saturation 13% but ferritin > 1200 precludes IV Venofer * Recommend transfusion to maintain Hgb > 8.0 Admission and Anticipated Discharge Date Admission Date: January 10, 2023 Subjective Mr. Acosta was evaluated in the ICU this morning. His daughter Lucy was present at bedside. Mr. Acosta denied flank pain or dyspnea. Review of Systems Constitutional: no fever Eyes: no problem reported Ear, Nose, Mouth, Throat: no problem reported Respiratory: no cough and no dyspnea Cardiovascular: no chest pain Gastrointestinal: no nausea, no vomiting and no diarrhea/loose stools Physical Exam Constitutional: + ill appearing; not in distress Eyes: PERRL, conjunctivae normal, anicteric sclerae ENMT: external ear and nose normal, oropharynx normal Neck: trachea midline, no thyromegaly R IJ TCC with clean dry dressing in place Respiratory: normal respiratory effort, lungs clear to auscultation Cardiovascular: Rate/Rhythm: + tachycardic Gastrointestinal (Abdomen): normal bowel sounds, soft, nontender, no hepatosplenomegaly Skin: normal turgor Neurologic: Speech / Cognition: normal speech and normal cognition Genitourinary: Acosta catheter in place Results & Data Vital Signs (Past 12 Hours) Vital Signs Temp Pulse Pulse Resp BP BP Pulse Ox 01/15/23 08:00 109 H 23 93 01/15/23 08:00 01/15/23 08:00 37.7 C H 01/15/23 07:23 164/81 H 01/15/23 07:23 102 H 20 85 L 01/15/23 07:00 104 H 19 92 01/15/23 06:55 101 H 18 97 01/15/23 06:00 107 H 20 93 01/15/23 05:00 96 H 38 H 97 01/15/23 04:00 97 H 25 H 99 01/15/23 04:00 170/85 H 01/15/23 03:35 37.8 C H 98 H 25 H 150/80 H 93 01/15/23 03:34 97 H 33 H 88 L 01/15/23 03:34 150/80 H 01/15/23 03:00 92 H 35 H 98 01/15/23 02:00 101 H 26 H 01/15/23 01:00 109 H 21 01/15/23 00:00 99 H 24 93 01/15/23 00:00 37.8 C H 91 H 37 H 146/73 H 96 01/15/23 00:00 91 H 01/14/23 23:54 95 H 31 H 96 01/14/23 23:54 152/85 H 01/14/23 23:00 94 H 32 H 94 01/14/23 22:00 97 H 30 H 94 O2 Del Method O2 Flow Rate 01/15/23 08:00 01/15/23 08:00 Nasal Cannula 2 01/15/23 08:00 01/15/23 07:23 01/15/23 07:23 01/15/23 07:00 01/15/23 06:55 Nasal Cannula 2 01/15/23 06:00 01/15/23 05:00 01/15/23 04:00 01/15/23 04:00 01/15/23 03:35 Nasal Cannula 2 01/15/23 03:34 01/15/23 03:34 01/15/23 03:00 01/15/23 02:00 01/15/23 01:00 01/15/23 00:00 01/15/23 00:00 Nasal Cannula 2 01/15/23 00:00 01/14/23 23:54 01/14/23 23:54 01/14/23 23:00 01/14/23 22:00 Laboratory Results Laboratory Tests 01/15/23 01/15/23 01:28 03:23 WBC 6.98 Hgb 7.8 L Hct 24.3 L Plt Count 190 Sodium 139 Potassium 3.6 Chloride 103 Carbon Dioxide 28 BUN 19 Creatinine 3.60 H Glucose 145 H Calcium 8.3 L Phosphorus 3.1 D Magnesium 1.9 Transferrin % Sat 13 L Ferritin 1784.0 H 01/13/23 Blood culture: Gram + cocci in chains PG Care Time/CCT Total # of Minutes Spent Total Time Spent with Patient: Total time spent is greater than 50% in coordination of care (as documented) at patient's floor/unit and/or counseling patient: Coding Level of Care Code 06147 SUB INP/OBS CARE 3/50MIN Diagnoses [place] (acute kidney injury) N17.9 History of thoracic aortic aneurysm repair Z98.890; Z86.79 Gram-positive bacteremia R78.81 Anemia D64.9
[2023-01-15 09:36] LABS: Enterococcus faecalis DETECTED (NotDetected)
[2023-01-15 09:37] LABS: Staphylococcus epidermidis DETECTED (NotDetected)
--- NOTE | 2023-01-15 11:10 | Hospitalist Progress Note ---
Date of Service January 15, 2023 Assessment & Plan (1) Ambulatory dysfunction: (2) Generalized weakness: (3) ESRD (end stage renal disease) on dialysis: (4) History of thoracic aortic aneurysm repair: (5) Renal cell carcinoma: (6) GERD (gastroesophageal reflux disease): (7) Hypertension: (8) Diabetes mellitus, type 2: (9) CAD (coronary artery disease): (10) Malignant neoplasm of prostate: Plan cardiorespiratory arrest Patient had an episode of cardiorespiratory arrest on 01/12 He was feeling shaky, nauseous for which dialysis needed to be stopped earlier that day He was mildly hypotensive and tachycardic CT angio of the chest abdomen and pelvis was ordered to see if his symptoms and signs had anything to do with his recent thoracic aneurysm repair CT angio was negative However soon after the contrast exposure, even though he was being premedicated, he went into cardiorespiratory arrest Unclear if the cardiorespiratory arrest was completely related to the contrast exposure (since he was feeling poorly all day yesterday) or if he has some issues with disequilibrium with dialysis or if this was related to the bacteremia (now that blood cultures are coming back positive) He is being treated with IV antibiotics Blood cultures positive for GPC's infectious disease on board Improved: off of the vent, off of pressors Monitor clinically GPC bacteremia Staph epidermidis plus Enterococcus faecalis PCR positive Patient is on IV daptomycin. Spoke to infectious disease who stated that daptomycin should cover both the bacteria. Spoke to pharmacy to increase the dose to 8 mg/kg. Ordered CPK Infectious disease on board The femoral line that was placed on the night of 01/12 after the code has been removed right upper extremity ultrasound ruled out abscess of the antecubital fossa The dialysis catheter will need to come out next. Vascular surgery not available to remove the dialysis cath. The plan is to keep the dialysis catheter in until Tuesday when it can be removed by the vascular surgeon. We can use the dialysis catheter over the weekend to dialyze him before the catheter comes out. Patient also has recently placed endograft which is going to be the biggest concern if he is persistently bacteremic despite all the above measures. Echocardiogram on 01/13 did not mention any vegetation. Repeat blood cultures in process from this morning 01/15 Ambulatory dysfunction/generalized weakness- Status post prolonged stay in recovery from thoracic aneurysm repair patient was recently at [facility] where he had a thoracic aneurysm repair done. The family was under the impression that he was being discharged to a rehab facility but it ended up being [facility]. The patient is too weak and the family is not able to take care of him at [facility] and thus was brought into the emergency room PT/OT on board Case management on board Recent thoracic aneurysm repair CT angio of the chest, abdomen and pelvis was fairly unremarkable Vascular surgery involved. Appreciate their input. Follow-up in 6 months. Atrial fibrillation with rapid ventricular response Was seen in consultation by cardiology Currently fairly rate controlled He is at risk of thromboembolic events with an elevated [id number] score. We will hold off on anticoagulation for the time being May need to be started on low-dose Eliquis 2.5 twice daily with his dual antiplatelet therapy when more stable. ESRD on HD- patient was dialyzed today. Dialysis catheter may need to be pulled on Tuesday because of bacteremia. He may need to have another dialysis on Tuesday prior to the catheter being pulled He is on a Tuesday schedule tub rider on board Anemia noted. Patient received blood transfusion during dialysis. CAD/hypertension/thoracic aortic aneurysm repair- Continue current medications: aspirin, clopidogrel Continued. Metoprolol, amlodipine held. Diabetes mellitus- Hold metformin. Should not be on metformin even on discharge given ESRD Placed on Accu-Cheks with NovoLog SSI Disposition- will likely need inpatient rehab versus SNF Admission and Anticipated Discharge Date Admission Date: January 10, 2023 Subjective Patient is sleeping. Easily arousable. Able to converse when awake. Per nurse, he was a little less cooperative overnight. But he seems to be cooperative now. Spoke to his daughter on the phone. The patient denies any chest pain, shortness of breath. The femoral line has been removed. Review of Systems Review of Systems: All systems reviewed & are unremarkable except as noted in Subjective Physical Exam Physical Exam: General: Awake, Conversant Heart: S1, S2/regular rate and rhythm, no murmur rubs or gallops Lungs: Clear to auscultation bilaterally. Normal effort Abdomen: Soft/nontender/nondistended. No hepatosplenomegaly Extremities: No clubbing/cyanosis. No edema Behavior: appropriate and cooperative Results & Data Results & Data Vital Signs (Past 12 Hours) Vital Signs Temp Pulse Pulse Resp BP BP Pulse Ox 01/15/23 08:00 109 H 23 93 01/15/23 08:00 01/15/23 08:00 37.7 C H 01/15/23 07:23 164/81 H 01/15/23 07:23 102 H 20 85 L 01/15/23 07:00 104 H 19 92 01/15/23 06:55 101 H 18 97 01/15/23 06:00 107 H 20 93 01/15/23 05:00 96 H 38 H 97 01/15/23 04:00 97 H 25 H 99 01/15/23 04:00 170/85 H 01/15/23 03:35 37.8 C H 98 H 25 H 150/80 H 93 01/15/23 03:34 97 H 33 H 88 L 01/15/23 03:34 150/80 H 01/15/23 03:00 92 H 35 H 98 01/15/23 02:00 101 H 26 H 01/15/23 01:00 109 H 21 01/15/23 00:00 99 H 24 93 01/15/23 00:00 37.8 C H 91 H 37 H 146/73 H 96 01/15/23 00:00 91 H 01/14/23 23:54 95 H 31 H 96 01/14/23 23:54 152/85 H O2 Del Method O2 Flow Rate 01/15/23 08:00 01/15/23 08:00 Nasal Cannula 2 01/15/23 08:00 01/15/23 07:23 01/15/23 07:23 01/15/23 07:00 01/15/23 06:55 Nasal Cannula 2 01/15/23 06:00 01/15/23 05:00 01/15/23 04:00 01/15/23 04:00 01/15/23 03:35 Nasal Cannula 2 01/15/23 03:34 01/15/23 03:34 01/15/23 03:00 01/15/23 02:00 01/15/23 01:00 01/15/23 00:00 01/15/23 00:00 Nasal Cannula 2 01/15/23 00:00 01/14/23 23:54 01/14/23 23:54 Laboratory Results Abnormal lab results 01/12/23 01/13/23 01/13/23 Range/Units 21:40 00:13 01:57 RBC (4.70-6.10) M/uL Hgb (14.0-18.0) g/dl POC Hgb 7.8 L (14.0-18.0) g/dl Hct (42.0-52.0) % POC Hct 23 L (42-52) % POC pH (7.35-7.45) POC pCO2 (35-46) mmHg POC pO2 167 H (80-95) mmHg POC HCO3 25 H (19-24) vince/L POC Total CO2 (24-31) mmol/L ABG pH (Temp Correct) (7.35-7.45) ABG pCO2 (Temp Corrct (35-46) mmHg POC ABG O2 Sat 100.0 H (90-95) % POC Sodium (135-144) mmol/L Creatinine (0.6-1.4) mg/dl BUN/Creatinine Ratio (10-20) Glucose (70-99(Fasting)) mg/dl POC Glucose (70-99) mg/dl POC Glucose (other) 335 H 355 H* (70-99) mg/dl Calcium (8.6-10.3) mg/dl Iron (35-175) mcg/dl TIBC (250-450) mcg/dl Transferrin % Sat (20-50) % Ferritin (8-388) ng/ml Enterococc faecalis PCR (NotDetected) Staphylococcus sp PCR (NotDetected) mecA/C-Methicil Resis Gene (NotDetected) Staph epidermidis (PCR) (NotDetected) 01/13/23 01/13/23 01/13/23 Range/Units 03:27 04:14 05:18 RBC (4.70-6.10) M/uL Hgb (14.0-18.0) g/dl POC Hgb 8.2 L (14.0-18.0) g/dl Hct (42.0-52.0) % POC Hct 24 L (42-52) % POC pH 7.46 H (7.35-7.45) POC pCO2 29 L (35-46) mmHg POC pO2 78 L (80-95) mmHg POC HCO3 (19-24) vince/L POC Total CO2 21 L (24-31) mmol/L ABG pH (Temp Correct) 7.454 H (7.35-7.45) ABG pCO2 (Temp Corrct 29 L (35-46) mmHg POC ABG O2 Sat 96.0 H (90-95) % POC Sodium 133 L (135-144) mmol/L Creatinine (0.6-1.4) mg/dl BUN/Creatinine Ratio (10-20) Glucose (70-99(Fasting)) mg/dl POC Glucose (70-99) mg/dl POC Glucose (other) 319 H 286 H (70-99) mg/dl Calcium (8.6-10.3) mg/dl Iron (35-175) mcg/dl TIBC (250-450) mcg/dl Transferrin % Sat (20-50) % Ferritin (8-388) ng/ml Enterococc faecalis PCR (NotDetected) Staphylococcus sp PCR (NotDetected) mecA/C-Methicil Resis Gene (NotDetected) Staph epidermidis (PCR) (NotDetected) 01/13/23 01/13/23 01/13/23 Range/Units 06:17 07:34 08:10 RBC (4.70-6.10) M/uL Hgb (14.0-18.0) g/dl POC Hgb 9.2 L (14.0-18.0) g/dl Hct (42.0-52.0) % POC Hct 27 L (42-52) % POC pH 7.17 L* (7.35-7.45) POC pCO2 57 H (35-46) mmHg POC pO2 134 H (80-95) mmHg POC HCO3 (19-24) vicne/L POC Total CO2 22 L (24-31) mmol/L ABG pH (Temp Correct) 7.158 L* (7.35-7.45) ABG pCO2 (Temp Corrct 58 H (35-46) mmHg POC ABG O2 Sat 98.0 H (90-95) % POC Sodium (135-144) mmol/L Creatinine (0.6-1.4) mg/dl BUN/Creatinine Ratio (10-20) Glucose (70-99(Fasting)) mg/dl POC Glucose (70-99) mg/dl POC Glucose (other) 251 H 205 H (70-99) mg/dl Calcium (8.6-10.3) mg/dl Iron (35-175) mcg/dl TIBC (250-450) mcg/dl Transferrin % Sat (20-50) % Ferritin (8-388) ng/ml Enterococc faecalis PCR (NotDetected) Staphylococcus sp PCR (NotDetected) mecA/C-Methicil Resis Gene (NotDetected) Staph epidermidis (PCR) (NotDetected) 01/13/23 01/13/23 01/13/23 Range/Units 08:35 10:40 18:01 RBC (4.70-6.10) M/uL Hgb (14.0-18.0) g/dl POC Hgb (14.0-18.0) g/dl Hct (42.0-52.0) % POC Hct (42-52) % POC pH (7.35-7.45) POC pCO2 (35-46) mmHg POC pO2 (80-95) mmHg POC HCO3 (19-24) vince/L POC Total CO2 (24-31) mmol/L ABG pH (Temp Correct) (7.35-7.45) ABG pCO2 (Temp Corrct (35-46) mmHg POC ABG O2 Sat (90-95) % POC Sodium (135-144) mmol/L Creatinine (0.6-1.4) mg/dl BUN/Creatinine Ratio (10-20) Glucose (70-99(Fasting)) mg/dl POC Glucose (70-99) mg/dl POC Glucose (other) 186 H 100 H (70-99) mg/dl Calcium (8.6-10.3) mg/dl Iron (35-175) mcg/dl TIBC (250-450) mcg/dl Transferrin % Sat (20-50) % Ferritin (8-388) ng/ml Enterococc faecalis PCR DETECTED A (NotDetected) Staphylococcus sp PCR DETECTED A (NotDetected) mecA/C-Methicil Resis Gene DETECTED A (NotDetected) Staph epidermidis (PCR) DETECTED A (NotDetected) 01/14/23 01/14/23 01/14/23 Range/Units 14:38 16:20 17:52 RBC (4.70-6.10) M/uL Hgb 7.8 L 7.2 L (14.0-18.0) g/dl POC Hgb (14.0-18.0) g/dl Hct 23.7 L 22.3 L (42.0-52.0) % POC Hct (42-52) % POC pH (7.35-7.45) POC pCO2 (35-46) mmHg POC pO2 (80-95) mmHg POC HCO3 (19-24) vince/L POC Total CO2 (24-31) mmol/L ABG pH (Temp Correct) (7.35-7.45) ABG pCO2 (Temp Corrct (35-46) mmHg POC ABG O2 Sat (90-95) % POC Sodium (135-144) mmol/L Creatinine (0.6-1.4) mg/dl BUN/Creatinine Ratio (10-20) Glucose (70-99(Fasting)) mg/dl POC Glucose 111 H (70-99) mg/dl POC Glucose (other) (70-99) mg/dl Calcium (8.6-10.3) mg/dl Iron (35-175) mcg/dl TIBC (250-450) mcg/dl Transferrin % Sat (20-50) % Ferritin (8-388) ng/ml Enterococc faecalis PCR (NotDetected) Staphylococcus sp PCR (NotDetected) mecA/C-Methicil Resis Gene (NotDetected) Staph epidermidis (PCR) (NotDetected) 01/14/23 01/15/23 01/15/23 Range/Units 19:21 01:28 03:23 RBC 2.64 L (4.70-6.10) M/uL Hgb 7.8 L (14.0-18.0) g/dl POC Hgb (14.0-18.0) g/dl Hct 24.3 L (42.0-52.0) % POC Hct (42-52) % POC pH (7.35-7.45) POC pCO2 (35-46) mmHg POC pO2 (80-95) mmHg POC HCO3 (19-24) vince/L POC Total CO2 (24-31) mmol/L ABG pH (Temp Correct) (7.35-7.45) ABG pCO2 (Temp Corrct (35-46) mmHg POC ABG O2 Sat (90-95) % POC Sodium (135-144) mmol/L Creatinine 3.56 H D 3.60 H (0.6-1.4) mg/dl BUN/Creatinine Ratio 5.9 L 5.3 L (10-20) Glucose 127 H 145 H (70-99(Fasting)) mg/dl POC Glucose 135 H (70-99) mg/dl POC Glucose (other) (70-99) mg/dl Calcium 8.4 L 8.3 L (8.6-10.3) mg/dl Iron 24 L (35-175) mcg/dl TIBC 185 L (250-450) mcg/dl Transferrin % Sat 13 L (20-50) % Ferritin 1784.0 H (8-388) ng/ml Enterococc faecalis PCR (NotDetected) Staphylococcus sp PCR (NotDetected) mecA/C-Methicil Resis Gene (NotDetected) Staph epidermidis (PCR) (NotDetected) 01/15/23 Range/Units 07:21 RBC (4.70-6.10) M/uL Hgb (14.0-18.0) g/dl POC Hgb (14.0-18.0) g/dl Hct (42.0-52.0) % POC Hct (42-52) % POC pH (7.35-7.45) POC pCO2 (35-46) mmHg POC pO2 (80-95) mmHg POC HCO3 (19-24) vince/L POC Total CO2 (24-31) mmol/L ABG pH (Temp Correct) (7.35-7.45) ABG pCO2 (Temp Corrct (35-46) mmHg POC ABG O2 Sat (90-95) % POC Sodium (135-144) mmol/L Creatinine (0.6-1.4) mg/dl BUN/Creatinine Ratio (10-20) Glucose (70-99(Fasting)) mg/dl POC Glucose 128 H (70-99) mg/dl POC Glucose (other) (70-99) mg/dl Calcium (8.6-10.3) mg/dl Iron (35-175) mcg/dl TIBC (250-450) mcg/dl Transferrin % Sat (20-50) % Ferritin (8-388) ng/ml Enterococc faecalis PCR (NotDetected) Staphylococcus sp PCR (NotDetected) mecA/C-Methicil Resis Gene (NotDetected) Staph epidermidis (PCR) (NotDetected) PG Care Time/CCT Total # of Minutes Spent Total Time Spent with Patient: Total time spent is greater than 50% in coordination of care (as documented) at patient's floor/unit and/or counseling patient: Coding Level of Care Code 35170 SUB INP/OBS CARE 2/35MIN Diagnoses Ambulatory dysfunction R26.2 Generalized weakness R53.1 ESRD (end stage renal disease) on dialysis N18.6; Z99.2 History of thoracic aortic aneurysm repair Z98.890; Z86.79 Renal cell carcinoma C64.9 GERD (gastroesophageal reflux disease) K21.9 Hypertension, unspecified type I10 Hypertension type: unspecified Type 2 diabetes mellitus with other circulatory complication, without long-term current use of insulin E11.59 Diabetes mellitus nursing home insulin use: without long term care administrator use Diabetes mellitus complication status: with circulatory complication Diabetes mellitus complication detail: with other circulatory complications Coronary artery disease involving [place] coronary artery of [place] heart without angina pectoris I25.10 Coronary Disease-Associated Artery/Lesion type: [place] artery [place] vs. transplanted heart: [place] heart Associated angina: without angina Malignant neoplasm of prostate C61 (7) Hypertension Hypertension type: unspecified Qualified Code(s): I10 - Essential (primary) hypertension (8) Diabetes mellitus, type 2 Diabetes mellitus nursing home insulin use: without long term care administrator use Diabetes mellitus complication status: with circulatory complication Diabetes mellitus complication detail: with other circulatory complications Qualified Code(s): E11.59 - Type 2 diabetes mellitus with other circulatory complications (9) CAD (coronary artery disease) Coronary Disease-Associated Artery/Lesion type: [place] artery [place] vs. transplanted heart: [place] heart Associated angina: without angina Qualified Code(s): I25.10 - Atherosclerotic heart disease of [place] coronary artery without angina pectoris
[2023-01-15] MEDS ORDERED: DAPTOmycin 500 MG in SYRINGE 0 ML IV SCH (11:45)
[2023-01-15] MEDS ORDERED: DAPTOmycin 125 MG in SYRINGE 0 ML IV ONE (12:00)
[2023-01-15] MEDS: SIMVASTATIN 40 MG TAB PO SCH (21:39)
[2023-01-16] MEDS ORDERED: MELATONIN 3 MG TAB PO STA (00:24)
[2023-01-16] MEDS: ACETAMINOPHEN 325 MG TAB PO PRN ×2 (03:39→21:09)
[2023-01-16] MEDS: FORMOTEROL 20 MCG/2 ML VIAL NEB SCH ×2 (06:57→20:31)
[2023-01-16] MEDS: BUDESONIDE 0.25 MG/2 ML VIAL (PULMICORT) NEB SCH ×2 (06:57→20:31)
[2023-01-16 07:06] LABS: Hematocrit (blood only) 24.6 % (42.0-52.0); Hemoglobin 8.2 g/dl (14.0-18.0); Mean Corpuscular Hemoglobin 29.7 pg (25.0-34.0); Mean Corpuscular Hgb Conc 33.3 g/dL (32.0-36.0); Mean Corpuscular Volume 89.1 fL (80.0-100.0); Mean Platelet Volume 10.3 fL (9.4-12.4); Nucleated RBC # (auto) 0.04 K/uL (0.00-0.12); Nucleated RBC % (auto) 0.4 %; Platelet Count 217 K/uL (130-400); RDW Coefficient of Variation 13.1 % (11.5-14.5); RDW Standard Deviation 41.5 fL (36.4-46.3); Red Blood Count 2.76 M/uL (4.70-6.10); White Blood Count 9.42 K/ul (4.8-10.8)
[2023-01-16 07:25] LABS: BUN Creatinine Ratio 8.2 (10-20); Calcium 8.4 mg/dl (8.6-10.3); Creatinine Clr Calc Pharmacy 18.8 ml/min; Est GFR (African American) 18.1 ml/min; Est GFR (Non-African American) 15.6 ml/min; Magnesium 1.7 mg/dl (1.7-2.4); Phosphorus 2.7 mg/dl (2.5-4.9); Potassium 3.4 mmol/L (3.5-5.1)
[2023-01-16] MEDS: HEPARIN SOD 5,000 UNIT/0.5 ML VIAL SQ SCH ×2 (08:34→21:21)
[2023-01-16] MEDS: ASPIRIN 81 MG ECTAB PO SCH (08:34)
[2023-01-16] MEDS: CLOPIDOGREL BISULFATE 75 MG TAB PO SCH (08:34)
[2023-01-16] MEDS: INSULIN ASPART PER UNIT CHARGE SC SCH ×4 (08:39→21:10)
[2023-01-16] MEDS: POLYETHYLENE (MIRALAX) 17 GM PACK PO SCH ×2 (08:39→21:21)
--- NOTE | 2023-01-16 09:32 | Nephrology Progress Note ---
Date of Service January 16, 2023 Assessment & Plan (1) CAROLINA (acute kidney injury): Plan: * CAROLINA due to bilateral renal infarcts and IV contrast administration * UO has improved to 705 cc last 24 hours * Creatinine remains relatively stable. Cr 3.6-->3.64 overnight * Volume status and electrolyte balance are currently acceptable. No acute indication for HD today. 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 Acosta was evaluated in his hospital room this morning. His son Jase was present at bedside. Mr. Acosta denied flank pain or dyspnea. Review of Systems Constitutional: no fever Eyes: no problem reported Ear, Nose, Mouth, Throat: no problem reported Respiratory: no cough and no dyspnea Cardiovascular: no chest pain Gastrointestinal: no nausea, no vomiting and no diarrhea/loose stools Physical Exam Constitutional: not in distress Eyes: PERRL, conjunctivae normal, anicteric sclerae ENMT: external ear and nose normal, oropharynx normal Neck: trachea midline, no thyromegaly Respiratory: normal respiratory effort, lungs clear to auscultation Cardiovascular: Rate/Rhythm: + tachycardic Gastrointestinal (Abdomen): normal bowel sounds, soft, nontender, no hepatosplenomegaly Skin: normal turgor Neurologic: Speech / Cognition: normal speech Results & Data Vital Signs (Past 12 Hours) Vital Signs Temp Pulse Pulse Resp BP Pulse Ox O2 Del Method 01/16/23 07:31 116 H 01/16/23 07:21 36.3 C L 100 H 18 164/88 H 93 Room Air 01/16/23 06:58 102 H 18 94 Room Air 01/16/23 03:29 36.8 C 119 H 18 167/82 H 93 Room Air 01/16/23 00:00 115 H 01/15/23 23:29 37.1 C 111 H 18 177/81 H 93 Room Air Laboratory Results Laboratory Tests 01/15/23 01/16/23 01/16/23 03:23 06:17 06:17 WBC 9.42 Hgb 8.2 L Hct 24.6 L Plt Count 217 Sodium 137 Potassium 3.4 L Chloride 99 BUN 30 H Creatinine 3.60 H 3.64 H Glucose 134 H Calcium 8.4 L Phosphorus 2.7 Magnesium 1.7 PG Care Time/CCT Total # of Minutes Spent Total Time Spent with Patient: Total time spent is greater than 50% in coordination of care (as documented) at patient's floor/unit and/or counseling patient: Coding Level of Care Code 75576 SUB INP/OBS CARE 3/50MIN Diagnoses CAROLINA (acute kidney injury) N17.9 History of thoracic aortic aneurysm repair Z98.890; Z86.79 Gram-positive bacteremia R78.81 Anemia D64.9
[2023-01-16] MEDS ORDERED: HALOPERIDOL LACTATE 5 MG/ML 1 ML VIAL IV STA (12:55)
--- NOTE | 2023-01-16 14:14 | Hospitalist Progress Note ---
Date of Service January 16, 2023 Assessment & Plan (1) Ambulatory dysfunction: (2) Generalized weakness: (3) ESRD (end stage renal disease) on dialysis: (4) History of thoracic aortic aneurysm repair: (5) Renal cell carcinoma: (6) GERD (gastroesophageal reflux disease): (7) Hypertension: (8) Diabetes mellitus, type 2: (9) CAD (coronary artery disease): (10) Malignant neoplasm of prostate: Plan cardiorespiratory arrest Patient had an episode of cardiorespiratory arrest on 01/12 He was feeling shaky, nauseous for which dialysis needed to be stopped earlier that day He was mildly hypotensive and tachycardic CT angio of the chest abdomen and pelvis was ordered to see if his symptoms and signs had anything to do with his recent thoracic aneurysm repair CT angio was negative However soon after the contrast exposure, even though he was being premedicated, he went into cardiorespiratory arrest Unclear if the cardiorespiratory arrest was completely related to the contrast exposure (since he was feeling poorly all day yesterday) or if he has some issues with disequilibrium with dialysis or if this was related to the bacteremia (now that blood cultures are coming back positive) He is being treated with IV antibiotics Blood cultures positive for GPC's infectious disease on board Improved: off of the vent, off of pressors Monitor clinically GPC bacteremia Staph epidermidis plus Enterococcus faecalis PCR positive Patient is on IV daptomycin. Spoke to infectious disease who stated that daptomycin should cover both the bacteria. Spoke to pharmacy to increase the dose to 8 mg/kg. Ordered CPK Infectious disease on board The femoral line that was placed on the night of 01/12 after the code has been removed right upper extremity ultrasound ruled out abscess of the antecubital fossa The dialysis catheter will need to come out next. Vascular surgery not available to remove the dialysis cath. The plan is to keep the dialysis catheter in until Tuesday when it can be removed by the vascular surgeon. Patient also has recently placed endograft which is going to be the biggest concern if he is persistently bacteremic despite all the above measures. Echocardiogram on 01/13 did not mention any vegetation. Repeat blood cultures From 01/15 so far negative metabolic encephalopathy Most likely hospital-acquired delirium Patient was given a dose of IV Haldol We will start Zyprexa p.o. nightly to help with healthy sleep-wake cycle Ambulatory dysfunction/generalized weakness- Status post prolonged stay in recovery from thoracic aneurysm repair patient was recently at [facility] where he had a thoracic aneurysm repair done. The family was under the impression that he was being discharged to a rehab facility but it ended up being [facility]. The patient is too weak and the family is not able to take care of him at [facility] and thus was brought into the emergency room PT/OT on board Case management on board Recent thoracic aneurysm repair CT angio of the chest, abdomen and pelvis was fairly unremarkable Vascular surgery involved. Appreciate their input. Follow-up in 6 months. If persistent bacteremia, may need to pursue the recent endograft as the s ource. Atrial fibrillation with rapid ventricular response Was seen in consultation by cardiology Currently fairly rate controlled He is at risk of thromboembolic events with an elevated [id number] score. We will hold off on anticoagulation for the time being May need to be started on low-dose Eliquis 2.5 twice daily with his dual antiplatelet therapy when more stable. ESRD on HD- Dialysis catheter may need to be pulled on Tuesday because of bacteremia. He is on a Tuesday schedule adobe block maker on board Anemia noted. Patient received blood transfusion during dialysis. CAD/hypertension/thoracic aortic aneurysm repair- Continue current medications: aspirin, clopidogrel Continued. Metoprolol, amlodipine held. Diabetes mellitus- Hold metformin. Should not be on metformin even on discharge given ESRD Placed on Accu-Cheks with NovoLog SSI Disposition- will likely need inpatient rehab versus SNF Admission and Anticipated Discharge Date Admission Date: January 10, 2023 Subjective Patient has been restless and delirious. Not sleeping well at night. Son at the bedside. Review of Systems Review of Systems: All systems reviewed & are unremarkable except as noted in Subjective Physical Exam Physical Exam: General: Awake, Conversant Heart: S1, S2/regular rate and rhythm, no murmur rubs or gallops Lungs: Clear to auscultation bilaterally. Normal effort Abdomen: Soft/nontender/nondistended. No hepatosplenomegaly Extremities: No clubbing/cyanosis. No edema Behavior: appropriate and cooperative Results & Data Results & Data Vital Signs (Past 12 Hours) Vital Signs Temp Pulse Pulse Resp BP Pulse Ox O2 Del Method 01/16/23 12:42 20 94 Room Air 01/16/23 11:26 185/89 H 01/16/23 11:12 37.2 C 130 H 23 182/117 H 92 Room Air 01/16/23 09:00 Room Air 01/16/23 07:31 116 H 01/16/23 07:21 36.3 C L 100 H 18 164/88 H 93 Room Air 01/16/23 06:58 102 H 18 94 Room Air 01/16/23 03:29 36.8 C 119 H 18 167/82 H 93 Room Air Laboratory Results Abnormal lab results 01/15/23 01/15/23 01/16/23 Range/Units 16:51 20:29 06:17 RBC 2.76 L (4.70-6.10) M/uL Hgb 8.2 L (14.0-18.0) g/dl Hct 24.6 L (42.0-52.0) % Potassium 3.4 L (3.5-5.1) mmol/L Anion Gap 12 H (3-11) BUN 30 H (6-23) mg/dl Creatinine 3.64 H (0.6-1.4) mg/dl BUN/Creatinine Ratio 8.2 L (10-20) Glucose 134 H (70-99(Fasting)) mg/dl POC Glucose 109 H 187 H (70-99) mg/dl Calcium 8.4 L (8.6-10.3) mg/dl 01/16/23 01/16/23 Range/Units 07:17 11:36 RBC (4.70-6.10) M/uL Hgb (14.0-18.0) g/dl Hct (42.0-52.0) % Potassium (3.5-5.1) mmol/L Anion Gap (3-11) BUN (6-23) mg/dl Creatinine (0.6-1.4) mg/dl BUN/Creatinine Ratio (10-20) Glucose (70-99(Fasting)) mg/dl POC Glucose 145 H 135 H (70-99) mg/dl Calcium (8.6-10.3) mg/dl PG Care Time/CCT Total # of Minutes Spent Total Time Spent with Patient: Total time spent is greater than 50% in coordination of care (as documented) at patient's floor/unit and/or counseling patient: Coding Level of Care Code 04738 SUB INP/OBS CARE 2/35MIN Diagnoses Ambulatory dysfunction R26.2 Generalized weakness R53.1 ESRD (end stage renal disease) on dialysis N18.6; Z99.2 History of thoracic aortic aneurysm repair Z98.890; Z86.79 Renal cell carcinoma C64.9 GERD (gastroesophageal reflux disease) K21.9 Hypertension, unspecified type I10 Hypertension type: unspecified Type 2 diabetes mellitus with other circulatory complication, without long-term current use of insulin E11.59 Diabetes mellitus director of clinical trials insulin use: without skilled nursing use Diabetes mellitus complication status: with circulatory complication Diabetes mellitus complication detail: with other circulatory compli cations Coronary artery disease involving [place] coronary artery of [place] heart without angina pectoris I25.10 Coronary Disease-Associated Artery/Lesion type: [place] artery [place] vs. transplanted heart: [place] heart Associated angina: without angina Malignant neoplasm of prostate C61 (7) Hypertension Hypertension type: unspecified Qualified Code(s): I10 - Essential (primary) hypertension (8) Diabetes mellitus, type 2 Diabetes mellitus director of clinical trials insulin use: without director of clinical trials use Diabetes mellitus complication status: with circulatory complication Diabetes mellitus complication detail: with other circulatory complications Qualified Code(s): E11.59 - Type 2 diabetes mellitus with other circulatory complications (9) CAD (coronary artery disease) Coronary Disease-Associated Artery/Lesion type: [place] artery [place] vs. transplanted heart: [place] heart Associated angina: without angina Qualified Code(s): I25.10 - Atherosclerotic heart disease of [place] coronary artery without angina pectoris
--- NOTE | 2023-01-16 17:59 | Electrocardiogram Report ---
Test Reason : Blood Pressure : / mmHG Vent. Rate : 100 BPM Atrial Rate : 100 BPM P-R Int : 162 ms QRS Dur : 096 ms QT Int : 346 ms P-R-T Axes : 062 -81 073 degrees QTc Int : 446 ms Poor data quality, interpretation may be adversely affected Sinus rhythm with Premature atrial complexes Left axis deviation Abnormal ECG When compared with ECG of 12-JAN-2023 21:33, Premature atrial complexes are now Present Questionable change in QRS duration Confirmed by William Carlin ([id number]) on 01/16/2023 5:59:00 PM Referred By: REFERRED SELF Confirmed By:William Carlin
[2023-01-16] MEDS ORDERED: OLANZapine 5 MG TABLET PO SCH (21:00)
[2023-01-16] MEDS: SIMVASTATIN 40 MG TAB PO SCH (21:21)
[2023-01-17] MEDS: DAPTOmycin 525 MG in SYRINGE 0 ML IV SCH (00:48)
[2023-01-17] MEDS: ALBUTEROL HFA 8 GM INHALER INH PRN (04:33)
[2023-01-17 06:47] LABS: Hematocrit (blood only) 27.5 % (42.0-52.0); Hemoglobin 9.1 g/dl (14.0-18.0); Mean Corpuscular Hemoglobin 29.9 pg (25.0-34.0); Mean Corpuscular Hgb Conc 33.1 g/dL (32.0-36.0); Mean Corpuscular Volume 90.5 fL (80.0-100.0); Mean Platelet Volume 10.4 fL (9.4-12.4); Nucleated RBC # (auto) 0.03 K/uL (0.00-0.12); Nucleated RBC % (auto) 0.3 %; Platelet Count 222 K/uL (130-400); RDW Coefficient of Variation 13.4 % (11.5-14.5); RDW Standard Deviation 42.9 fL (36.4-46.3); Red Blood Count 3.04 M/uL (4.70-6.10); White Blood Count 9.32 K/ul (4.8-10.8)
[2023-01-17 07:07] LABS: BUN Creatinine Ratio 9.9 (10-20); Calcium 8.3 mg/dl (8.6-10.3); Creatinine Clr Calc Pharmacy 19.2 ml/min; Est GFR (African American) 18.7 ml/min; Est GFR (Non-African American) 16.1 ml/min; Potassium 3.6 mmol/L (3.5-5.1)
[2023-01-17] MEDS: FORMOTEROL 20 MCG/2 ML VIAL NEB SCH (07:28)
[2023-01-17] MEDS: BUDESONIDE 0.25 MG/2 ML VIAL (PULMICORT) NEB SCH (07:28)
--- NOTE | 2023-01-17 08:54 | Nephrology Progress Note ---
Date of Service January 17, 2023 Assessment & Plan (1) CAROLINA (acute kidney injury): Plan: * CAROLINA due to bilateral renal infarcts and IV contrast administration * UO has improved to 1050cc last 24 hours * Creatinine remains stable at 3.5 since last HD on Tuesday01/14/23 * Patient appears clinically volume contracted. Will provide 1 L 0.9NS IV today and then heplock IV * Patient appears to be in recovery phase of CAROLINA. I believe that we can remove IJ TCC. I have spoken w/ Dr. Barrett this morning. 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 Acosta was evaluated in his hospital room this morning. He was breathing comfortably flat in bed on RA. He denied dyspnea, angina or uremic symptoms. Mr. Acosta appeared confused but when asked directly could state his name, location and month appropriately Review of Systems Constitutional: no fever Eyes: no problem reported Ear, Nose, Mouth, Throat: no problem reported Respiratory: no cough and no dyspnea Cardiovascular: no chest pain Gastrointestinal: no nausea, no vomiting and no diarrhea/loose stools Physical Exam Constitutional: not in distress Eyes: PERRL, conjunctivae normal, anicteric sclerae ENMT: Mouth: + dry oral mucous membranes Neck: trachea midline, no thyromegaly Respiratory: normal respiratory effort, lungs clear to auscultation Cardiovascular: Rate/Rhythm: regular rate and regular rhythm Gastrointestinal (Abdomen): normal bowel sounds, soft, nontender, no hepatosplenomegaly Skin: + turgor decreased Neurologic: Speech / Cognition: normal speech and normal cognition Results & Data Vital Signs (Past 12 Hours) Vital Signs Temp Pulse Pulse Resp BP Pulse Ox O2 Del Method 01/17/23 08:00 37.1 C 65 20 161/73 H 92 Room Air 01/17/23 07:29 93 H 18 93 Room Air 01/17/23 04:35 109 H 24 93 Nasal Cannula 01/17/23 03:32 36.5 C 120 H 22 171/85 H 92 Room Air 01/17/23 03:30 141/84 H 01/17/23 00:00 114 H 01/16/23 22:43 36.6 C 102 H 20 142/82 H 92 Room Air Laboratory Results Laboratory Tests 01/17/23 05:50 WBC 9.32 Hgb 9.1 L Hct 27.5 L Plt Count 222 Sodium 138 Potassium 3.6 Chloride 100 Carbon Dioxide 26 BUN 35 H Creatinine 3.54 H Glucose 113 H PG Care Time/CCT Total # of Minutes Spent Total Time Spent with Patient: Total time spent is greater than 50% in coordination of care (as documented) at patient's floor/unit and/or counseling patient: Coding Level of Care Code 45956 SUB INP/OBS CARE 3/50MIN Diagnoses CAROLINA (acute kidney injury) N17.9 History of thoracic aortic aneurysm repair Z98.890; Z86.79 Gram-positive bacteremia R78.81 Anemia D64.9
[2023-01-17] MEDS: INSULIN ASPART PER UNIT CHARGE SC SCH ×4 (08:56→21:43)
[2023-01-17] MEDS ORDERED: HALOPERIDOL LACTATE 5 MG/ML 1 ML VIAL IV STA (08:57)
[2023-01-17] MEDS: CLOPIDOGREL BISULFATE 75 MG TAB PO SCH (09:17)
[2023-01-17] MEDS: HEPARIN SOD 5,000 UNIT/0.5 ML VIAL SQ SCH ×2 (09:17→19:50)
[2023-01-17] MEDS: ASPIRIN 81 MG ECTAB PO SCH (09:17)
[2023-01-17] MEDS ORDERED: SODIUM CHLORIDE 0.9% 1,000 ML IV SCH (10:15)
[2023-01-17] MEDS: POLYETHYLENE (MIRALAX) 17 GM PACK PO SCH ×2 (11:47→20:09)
--- NOTE | 2023-01-17 13:22 | Hospitalist Progress Note ---
Date of Service January 17, 2023 Assessment & Plan (1) Ambulatory dysfunction: (2) Generalized weakness: (3) ESRD (end stage renal disease) on dialysis: (4) History of thoracic aortic aneurysm repair: (5) Renal cell carcinoma: (6) GERD (gastroesophageal reflux disease): (7) Hypertension: (8) Diabetes mellitus, type 2: (9) CAD (coronary artery disease): (10) Malignant neoplasm of prostate: Plan cardiorespiratory arrest Patient had an episode of cardiorespiratory arrest on 01/12 He was feeling shaky, nauseous for which dialysis needed to be stopped earlier that day He was mildly hypotensive and tachycardic CT angio of the chest abdomen and pelvis was ordered to see if his symptoms and signs had anything to do with his recent thoracic aneurysm repair CT angio was negative However soon after the contrast exposure, even though he was being premedicated, he went into cardiorespiratory arrest Unclear if the cardiorespiratory arrest was completely related to the contrast exposure (since he was feeling poorly all day yesterday) or if he has some issues with disequilibrium with dialysis or if this was related to the bacteremia (now that blood cultures are coming back positive) He is being treated with IV antibiotics Blood cultures positive for GPC's infectious disease on board Improved: off of the vent, off of pressors Monitor clinically GPC bacteremia Staph epidermidis plus Enterococcus faecalis PCR positive Patient is on IV daptomycin. Spoke to infectious disease who stated that daptomycin should cover both the bacteria. Spoke to pharmacy to increase the dose to 8 mg/kg. Ordered CPK Infectious disease on board The femoral line that was placed on the night of 01/12 after the code has been removed right upper extremity ultrasound ruled out abscess of the antecubital fossa The dialysis catheter will need to come out next. Vascular surgery will remove the catheter tomorrow 01/18. Repeat blood cultures from 01/15 has been negative for 48 hours. Patient also has recently placed endograft which is going to be the biggest concern if he is persistently bacteremic despite all the above measures. Echocardiogram on 01/13 did not mention any vegetation. metabolic encephalopathy Most likely hospital-acquired delirium Patient was given a dose of IV Haldol On Zyprexa p.o. nightly to help with healthy sleep-wake cycle. Will increase the dose to 10 mg p.o. nightly Ambulatory dysfunction/generalized weakness- Status post prolonged stay in recovery from thoracic aneurysm repair patient was recently at [facility] where he had a thoracic aneurysm repair done. The family was under the impression that he was being discharged to a rehab facility but it ended up being [facility]. The patient is too weak and the family is not able to take care of him at [facility] and thus was brought into the emergency room PT/OT on board Case management on board Recent thoracic aneurysm repair CT angio of the chest, abdomen and pelvis was fairly unremarkable Vascular surgery involved. Appreciate their input. Follow-up in 6 months. If persistent bacteremia, may need to pursue the recent endograft as the source. Atrial fibrillation with rapid ventricular response Was seen in consultation by cardiology Currently fairly rate controlled He is at risk of thromboembolic events with an elevated [id number] score. We will hold off on anticoagulation for the time being May need to be started on low-dose Eliquis 2.5 twice daily with his dual antiplatelet therapy when more stable. ESRD on HD- Dialysis catheter will be removed tomorrow 01/18 because of bacteremia. children's tutor on board, deciding against dialysis today. Patient most likely has recovering CAROLINA. No indication for dialysis today per children's tutor CAD/hypertension/thoracic aortic aneurysm repair- Continue current medications: aspirin, clopidogrel Continued. Metoprolol, amlodipine held. Diabetes mellitus- Hold metformin. Should not be on metformin even on discharge given ESRD Placed on Accu-Cheks with NovoLog SSI Disposition- will likely need inpatient rehab versus SNF Admission and Anticipated Discharge Date Admission Date: January 10, 2023 Subjective Per nurse, patient has been restless and agitated. Patient his Pleasantly confused. Review of Systems Review of Systems: Unobtainable due to cognitive status Physical Exam Physical Exam: General: Awake, Conversant but pleasantly confused. He appears restless. Heart: S1, S2/regular rate and rhythm, no murmur rubs or gallops Lungs: Clear to auscultation bilaterally. Normal effort Abdomen: Soft/nontender/nondistended. No hepatosplenomegaly Extremities: No clubbing/cyanosis. No edema Behavior: appropriate and cooperative Results & Data Results & Data Vital Signs (Past 12 Hours) Vital Signs Temp Pulse Resp BP Pulse Ox O2 Del Method O2 Flow Rate 01/17/23 12:09 94 0 01/17/23 11:16 36.7 C 122 H 21 123/74 95 Room Air 01/17/23 08:00 37.1 C 65 20 161/73 H 92 Room Air 01/17/23 07:29 93 H 18 93 Room Air 01/17/23 04:35 109 H 24 93 Nasal Cannula 01/17/23 03:32 36.5 C 120 H 22 171/85 H 92 Room Air 01/17/23 03:30 141/84 H Laboratory Results Abnormal lab results 01/16/23 01/16/23 01/17/23 Range/Units 16:28 20:34 05:50 RBC 3.04 L (4.70-6.10) M/uL Hgb 9.1 L (14.0-18.0) g/dl Hct 27.5 L (42.0-52.0) % Anion Gap 12 H (3-11) BUN 35 H (6-23) mg/dl Creatinine 3.54 H (0.6-1.4) mg/dl BUN/Creatinine Ratio 9.9 L (10-20) Glucose 113 H (70-99(Fasting)) mg/dl POC Glucose 140 H 174 H (70-99) mg/dl Calcium 8.3 L (8.6-10.3) mg/dl 01/17/23 01/17/23 Range/Units 07:53 11:16 RBC (4.70-6.10) M/uL Hgb (14.0-18.0) g/dl Hct (42.0-52.0) % Anion Gap (3-11) BUN (6-23) mg/dl Creatinine (0.6-1.4) mg/dl BUN/Creatinine Ratio (10-20) Glucose (70-99(Fasting)) mg/dl POC Glucose 130 H 157 H (70-99) mg/dl Calcium (8.6-10.3) mg/dl PG Care Time/CCT Total # of Minutes Spent Total Time Spent with Patient: Total time spent is greater than 50% in coordination of care (as documented) at patient's floor/unit and/or counseling patient: Coding Level of Care Code 20587 SUB INP/OBS CARE 2/35MIN Diagnoses Ambulatory dysfunction R26.2 Generalized weakness R53.1 ESRD (end stage renal disease) on dialysis N18.6; Z99.2 History of thoracic aortic aneurysm repair Z98.890; Z86.79 Renal cell carcinoma C64.9 GERD (gastroesophageal reflux disease) K21.9 Hypertension, unspecified type I10 Hypertension type: unspecified Type 2 diabetes mellitus with other circulatory complication, without long-term current use of insulin E11.59 Diabetes mellitus detention insulin use: without detention use Diabetes mellitus complication status: with circulatory complication Diabetes mellitus complication detail: with other circulatory complications Coronary artery disease involving [place] coronary artery of [place] heart without angina pectoris I25.10 Coronary Disease-Associated Artery/Lesion type: [place] artery [place] vs. transplanted heart: [place] heart Associated angina: without angina Malignant neoplasm of prostate C61 (7) Hypertension Hypertension type: unspecified Qualified Code(s): I10 - Essential (primary) hypertension (8) Diabetes mellitus, type 2 Diabetes mellitus joint terminal attack controller insulin use: without joint terminal attack controller use Diabetes mellitus complication status: with circulatory complication Diabetes mellitus complication detail: with other circulatory complications Qualified Code(s): E11.59 - Type 2 diabetes mellitus with other circulatory complications (9) CAD (coronary artery disease) Coronary Disease-Associated Artery/Lesion type: [place] artery [place] vs. transplanted heart: [place] heart Associated angina: without angina Qualified Code(s): I25.10 - Atherosclerotic heart disease of [place] coronary artery without angina pectoris
--- NOTE | 2023-01-17 15:14 | Infectious Disease Progress Nt ---
Date of Service January 17, 2023 Assessment & Plan (1) Gram-positive bacteremia: (2) Cardiac arrest: (3) CAROLINA (acute kidney injury): Plan Micro: 01/15 BCx x2: NGTD 01/13 BCx x2: Coag neg Staph not lug in 2/4 bottles (R oxacillin, clinda, TMP/SMX. S dapto, tetra, vanc), Staph haemolyticus in 1/4 bottles (R oxacillin, TMP/SMX, clinda. S dapto, tetra, vanc), E faecalis in 2/4 bottles (S amp, vanc). BCID PCR panel + Staph epi, E faecalis 01/12 BCx x2: Coag neg Staph not lugdunensis in 4/4 bottles. BCID PCR panel + Staph epi 01/12 BCx x2: Coag neg Staph not lugdunensis in 2/4 bottles (R oxacillin. S clinda, tetra, TMP/SMX) 01/11 UCx: >3 organisms Abx: Daptomycin 01/12- ongoing Zosyn 01/12-01/13 Problems: # Staph epi bacteremia # E faecalis bacteremia # Acute sinusitis on imaging # Recent thoracic aortic aneurysm repair with graft # R HD catheter in place # left femoral line place # right great toe screw in place #R AC fossa erythema. 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 He underwent thoracic endovascular aortic repair (TEVAR) on 12/23/22 with [place] endograft. He required renal stenting, kidney function worsened and now on HD. He was discharged to SNF, but there was a mixup in the location and he ended up there for 2 d and presented to ED on 01/10 for placement. On admission, he is HDS. WBC 11.46, h/h 9.5/29, cr 2.09. UA with 5-10 wbc . Flu/covid/rsv negative. 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 There was a trace amount of contrast tracking along the inferior margin of the thoracic graft. The grafts and stents are widely patent. There was no endograft leakage. Vascular surgery was consulted, felt thoracic aortic graft was well-placed, did not feel acute intervention was needed. CT head showed gas fluid levels involving the maxillar y, sphenoid, and ethmoid sinuses suggesting acute sinusitis. His course c/b cardiac arrest on 01/12 after scans requiring intubation (s/p extubation). 01/12 blood cultures grew CoNS in 2/4 bottles. Repeat blood cultures later that day post-cardiac arrest again grew CoNS in 4/4 bottles. BCID PCR panel with Staph epi, mec A detected. Blood cultures from 01/13 again grew CoNS in 2/4 bottles, Staph haemolyticus in 1/4 bottles, and E faecalis in 2/4 bottles. Blood cultures were positive before a femoral line was placed on 01/12 in the setting of the code. Femoral line has since been removed. Pt has an HD catheter which will be removed 01/18. Coag neg Staph in multiple blood cultures is not a contaminant, lisa in conjunction with presenting symptoms, recent endovascular procedure with graft, and central lines. Several possible sources of infection; 1) endovascular graft, 2) central lines-HD catheter, femoral line, 3) History of R great toe metal/screw (no evidence of infection here), 4) R AC fossa tenderness and redness/PIV infiltration (less likely, RUE US showed R basilic vein thrombosis, no evidence of soft tissue abscess), 5) acute sinusitis on imaging (less likely). Interestingly, pt also with E faecalis on 01/13 blood culture. TTE on 01/15 did not demonstrate vegetations. Recommendations: -Continue HD dosing for Daptomycin 6 mg /kg 3 times per week POST-HD -Follow-up repeat blood cultures from 01/15 -Obtained repeat set of blood cultures today as well -Agree with HD catheter removal given persistent bacteremia -If persistent bacteremia, may need to consider endograft infection -Anticipate longer course of IV antibiotics on discharge, given his recent endograft placement. Can receive IV antibiotics with HD as outpatient. Discussed with hospitalist. Will continue to follow. Please page [facility] with further questions. Admission and Anticipated Discharge Date Admission Date: January 10, 2023 Subjective This patient recommendation is based on a telemedicine consult request which was completed asynchronously through chart review and information provided by the primary physician. The patient was not seen or examined today. The evaluation is consultative in nature and all patient care and treatment decisions can either be accepted or rejected by the patient's primary hospital-based treating physician using their own independent medical judgment for their patient. Time Spent Reviewing Chart: 31+ minutes 01/15 blood cultures NGTD Pt to have HD catheter removed today Temperatures improved Review of System pt not seen Physical Exam Physical Exam: Patient not seen Results & Data Vital Signs (Past 12 Hours) Vital Signs Temp Pulse Resp BP Pulse Ox O2 Del Method O2 Flow Rate 01/17/23 12:09 94 0 01/17/23 11:16 36.7 C 122 H 21 123/74 95 Room Air 01/17/23 08:00 37.1 C 65 20 161/73 H 92 Room Air 01/17/23 07:29 93 H 18 93 Room Air 01/17/23 04:35 109 H 24 93 Nasal Cannula 01/17/23 03:32 36.5 C 120 H 22 171/85 H 92 Room Air 01/17/23 03:30 141/84 H Laboratory Results Short CBC 01/17/23 Range/Units 05:50 WBC 9.32 (4.8-10.8) K/ul Hgb 9.1 L (14.0-18.0) g/dl Hct 27.5 L (42.0-52.0) % Plt Count 222 (130-400) K/uL BMP 01/17/23 05:50 Sodium 138 Potassium 3.6 Chloride 100 Carbon Dioxide 26 BUN 35 H Creatinine 3.54 H Glucose 113 H Calcium 8.3 L Diagnostic Findings Vascular Ultrasound 01/14/23 16:25 Exam(s): US EXTREMITY EXAM: US Right Upper Extremity Non-Vascular, Complete CLINICAL HISTORY: Reason for exam: RUE AC fossa swelling r/o abscess. TECHNIQUE: Real-time ultrasound scan of the right upper extremity with image documentation. COMPARISON: No relevant prior studies available. FINDINGS: Soft tissues: Unremarkable. No foreign body. No soft tissue abscess is seen. Superficial veins: There is RIGHT basilic vein thrombosis. IMPRESSION: No evidence of soft tissue abscess Electronically signed by: Damien Bedolla MD 01/14/23 21:41 PM Medications Administered Current Inpatient Medications Acetaminophen (Acetaminophen 325 Mg Tab) 650 mg PO Q6H PRN PRN Reason: Pain Stop: 02/09/23 22:24 Last Admin: 01/16/23 21:09 Dose: 650 mg Albuterol (Albuterol Hfa 8 Gm Inhaler) 2 puffs INH Q6H PRN PRN Reason: Wheezing Stop: 02/09/23 22:24 Last Admin: 01/17/23 04:33 Dose: 2 puffs Aspirin (Aspirin 81 Mg Ectab) 81 mg PO QAM GABY Stop: 02/10/23 08:59 Last Admin: 01/17/23 09:17 Dose: 81 mg Budesonide (Budesonide 0.25 Mg/2 Ml Vial (Pulmicort)) 0.25 mg NEB DAILY GABY Stop: 02/12/23 08:59 Last Admin: 01/17/23 07:28 Dose: 0.25 mg Calcium Carbonate (Calcium Carbonate 500 Mg Chewable Tab) 1,000 mg PO Q4H PRN PRN Reason: Indigestion Stop: 02/10/23 20:42 Last Admin: 01/12/23 05:45 Dose: 1,000 mg Clopidogrel Bisulfate (Clopidogrel Bisulfate 75 Mg Tab) 75 mg PO QAM GABY Stop: 02/10/23 08:59 Last Admin: 01/17/23 09:17 Dose: 75 mg Dextrose (Dextrose 50% 50 Ml Syringe) 25 - 50 ml IV UD PRN; Protocol PRN Reason: Hypoglycemia Protocol Stop: 02/09/23 22:24 Formoterol Fumarate (Formoterol 20 Mcg/2 Ml Vial) 20 mcg NEB DAILY GABY Stop: 02/12/23 08:59 Last Admin: 01/17/23 07:28 Dose: 20 mcg Glucagon (Glucagon For Inj 1 Mg Vial) 1 mg SQ UD PRN; Protocol PRN Reason: Hypoglycemia Protocol Stop: 02/09/23 22:24 Glucose (Glucose 10 Tab/Tube) 4 - 8 tab PO UD PRN; Protocol PRN Reason: Hypoglycemia Treatment Stop: 02/09/23 22:24 Glucose (Glucose 40% Gel 15 Gm Tube) 15 - 30 gm PO UD PRN; Protocol PRN Reason: Hypoglycemia Protocol Stop: 02/09/23 22:24 Heparin Sodium (Porcine) (Heparin Sod 5,000 Unit/0.5 Ml Vial) 5,000 units SQ Q12 [facility] Stop: 02/09/23 22:24 Last Admin: 01/17/23 09:17 Dose: 5,000 units Daptomycin 525 mg/ Syringe 10.5 mls @ 5.25 mls/min IV Q48H [facility]; Protocol Stop: 01/31/23 00:00 Last Admin: 01/17/23 00:48 Dose: 5.25 mls/min Sodium Chloride (Nss) 1,000 mls @ 80 mls/hr IV .[id number] [facility] Stop: 01/17/23 22:44 Last Admin: 01/17/23 11:47 Dose: 80 mls/hr Insulin Aspart (Insulin Aspart Per Unit Charge) 0 units SC ACHS [facility] Stop: 02/12/23 16:29 Last Admin: 01/17/23 12:43 Dose: 1 units Miscellaneous (Carbohydrates For Hypoglycemia ) 15 - 30 gm PO UD PRN PRN Reason: Hypoglycemia Protocol Stop: 02/09/23 22:24 Olanzapine (Olanzapine 10 Mg Tab) 10 mg PO HS [facility] Stop: 02/16/23 20:59 Ondansetron HCl (Ondansetron Inj 2 Mg/Ml 2 Ml Vial) 4 mg IV Q6H PRN PRN Reason: Nausea Stop: 02/09/23 22:24 Last Admin: 01/12/23 12:42 Dose: 4 mg Polyethylene Glycol (Polyethylene (Miralax) 17 Gm Pack) 17 gm PO BID [facility] Stop: 02/09/23 22:24 Last Admin: 01/17/23 11:47 Dose: 17 gm Simvastatin (Simvastatin 40 Mg Tab) 40 mg PO HS [facility] Stop: 02/09/23 22:24 Last Admin: 01/16/23 21:21 Dose: 40 mg
[2023-01-17] MEDS: OLANZapine 10 MG TAB PO SCH (19:51)
[2023-01-17] MEDS: SIMVASTATIN 40 MG TAB PO SCH (19:53)
[2023-01-18] MEDS: ACETAMINOPHEN 325 MG TAB PO PRN (00:41)
[2023-01-18] MEDS ORDERED: Nursing to Pharmacy Communication SCH ×2 (01:15→16:45)
[2023-01-18] MEDS ORDERED: HYDROmorphone INJ 0.5 MG/0.5 ML SYR IV STA ×2 (04:41→23:58)
[2023-01-18] MEDS ORDERED: ACETAMINOPHEN 500 MG TAB PO PRN (04:42)
[2023-01-18] MEDS: INSULIN ASPART PER UNIT CHARGE SC SCH ×4 (06:29→20:28)
[2023-01-18 06:51] LABS: BUN Creatinine Ratio 11.1 (10-20); Est GFR (African American) 17.3 ml/min; Est GFR (Non-African American) 14.9 ml/min; Potassium 3.7 mmol/L (3.5-5.1)
[2023-01-18] MEDS: BUDESONIDE 0.25 MG/2 ML VIAL (PULMICORT) NEB SCH (07:09)
[2023-01-18] MEDS: FORMOTEROL 20 MCG/2 ML VIAL NEB SCH (07:09)
--- NOTE | 2023-01-18 07:47 | History & Physical Bridge Note ---
Date of Service January 18, 2023 History & Physical Bridge Note Patient for removal of permcath today. I have discussed the risks options and benefits of the procedure with the patient. The patient understands the risks options and benefits and agrees to the procedure. I have examined the patient, reviewed the History & Physical and in the interval since the performance of the History & Physical I have noted the following changes of clinical significance: no changes noted
[2023-01-18] MEDS ORDERED: LIDOCAINE 1% LOCAL 20 ML VIAL ONE (08:29)
--- NOTE | 2023-01-18 08:31 | Pre Anesthesia Assessment ---
Date of Service January 18, 2023 Pre Sedation Assessment Vital Signs Temp Pulse Pulse Pulse Resp BP BP 01/18/23 08:18 36.9 C 110 H 24 138/80 01/18/23 07:23 36.6 C 102 H 20 126/86 01/18/23 07:09 110 H 18 01/18/23 04:00 117 H 01/18/23 03:03 36.5 C 92 H 20 121/70 01/18/23 00:00 125 H 01/18/23 00:00 126 H 24 146/84 H 01/17/23 22:39 36.6 C 123 H 22 143/78 H 01/17/23 19:36 37.5 C 115 H 20 142/81 H 01/17/23 16:00 01/17/23 16:00 119 H 01/17/23 15:18 36.8 C 118 H 19 133/74 01/17/23 12:09 01/17/23 11:16 36.7 C 122 H 21 123/74 Pulse Ox O2 Del Method O2 Flow Rate 01/18/23 08:18 95 Nasal Cannula 2 01/18/23 07:23 95 Nasal Cannula 1 01/18/23 07:09 92 Nasal Cannula 1 01/18/23 04:00 95 Nasal Cannula 1 01/18/23 03:03 97 Oxymask 2 01/18/23 00:00 01/18/23 00:00 97 Nasal Cannula 2 01/17/23 22:39 94 Nasal Cannula 2 01/17/23 19:36 90 Room Air 01/17/23 16:00 Room Air 01/17/23 16:00 01/17/23 15:18 94 Room Air 01/17/23 12:09 94 0 01/17/23 11:16 95 Room Air Cardiovascular RRR, no murmur, no edema Respiratory normal respiratory effort, lungs clear to auscultation Pre-Sedation Airway Assessment Smoking Status: Former smoker Hx Sleep Apnea: No Short, Thick Neck: No Thyromental Distance: > or= 3.5 Finger Breadths Oral Cavity: + Capped Teeth Mallampati Class: III ASA: ASA3 NPO Status Date of Last Intake of Fluids: 01/18/23 Time of Last Intake of Fluids: 00:00 Last Oral Intake of Fluids Comment: per record and pt Date of Last Intake of Solid Food: 01/18/23 Time of Last Intake of Solid Foods: 00:00 Last Intake of Solids Comment: per record and pt Procedure Planning Contraindications for Sedation: none Current Medications Reviewed: Yes Notes The planned sedation has been discussed with the patient. Informed Consent was obtained. I have identified the patient, determined the appropriateness of sedation and have assessed the patient immediately prior to the procedure. All medicine(s) and interventions are by my order.
[2023-01-18] MEDS ORDERED: fentaNYL citrate PF 100 MCG/2 ML VIAL ONE (08:33)
[2023-01-18] MEDS ORDERED: MIDAZOLAM HCL 1 MG/ML 2ML VIAL ONE (08:33)
--- NOTE | 2023-01-18 08:49 | Operative Report ---
Post Operative Report Pre & Post Diagnosis Operation Date: 01/18/23 10:20 Pre-Op Diagnosis: Functioning Kidneys Post-Op Diagnosis: Functioning Kidneys I identified the patient and participated in the time-out.: Yes Procedure Operation Date: 01/18/23 10:20 Actual Procedures p Removal Perm Catheter, Moderate Sedation [id number](Right) - Jero Barrett MD Surgeon Jero Barrett MD Board Attendant none Estimated Blood Loss 0 Findings Consistent with Post-Op Diagnosis Specimens catheter tip for culture Anesthesia Type RN Sedation Complications none Disposition Accompanied Patient To Recovery: No Disposition: Recovery Room Indications This is a 72-year-old gentleman who had a acute kidney injury requiring dialysis via PermCath. His kidney function is now improved so he does not further need dialysis. He is also been septic with positive blood cultures which have cleared with antibiotics. It was recommended to remove the permacatheter both these reasons. I have discussed the risks options and benefits of the procedure with the patient. The patient understands the risks options and benefits and agrees to the procedure. Description of Procedure The patient was taken to the angio suite and placed in the supine position. The patient was identified and a timeout performed. The right side of the neck, chest wall and catheter were prepped and draped in a sterile manner. Local anesthesia was then accomplished. Using sharp and blunt dissection, the cuff of the permcath was freed up from the surrounding fibrous tissue. The permcath and cuff were completely removed. Pressure was then applied and adequate hemostasis was obtained. A sterile dressing was then applied. The patient left the operation room in satisfactory condition and tolerated the procedure well. All needle and sponge counts were correct at the end of the procedure. I attest to the content of the Intraoperative Record and any orders documented therein. Any exceptions are noted below.
--- NOTE | 2023-01-18 08:53 | Post Anesthesia Assessment ---
Date of Service January 18, 2023 Post Sedation Assessment Vital Signs Temp Pulse Pulse Pulse Resp BP BP 01/18/23 08:47 112 H 20 142/78 H 01/18/23 08:45 116 H 20 116/70 01/18/23 08:40 110 H 18 131/90 01/18/23 08:18 36.9 C 110 H 24 138/80 01/18/23 07:23 36.6 C 102 H 20 126/86 01/18/23 07:09 110 H 18 01/18/23 04:00 117 H 01/18/23 03:03 36.5 C 92 H 20 121/70 01/18/23 00:00 125 H 01/18/23 00:00 126 H 24 146/84 H 01/17/23 22:39 36.6 C 123 H 22 143/78 H 01/17/23 19:36 37.5 C 115 H 20 142/81 H 01/17/23 16:00 01/17/23 16:00 119 H 01/17/23 15:18 36.8 C 118 H 19 133/74 01/17/23 12:09 01/17/23 11:16 36.7 C 122 H 21 123/74 Pulse Ox O2 Del Method O2 Flow Rate 01/18/23 08:47 99 Oxymask 4 01/18/23 08:45 98 Oxymask 4 01/18/23 08:40 98 Oxymask 4 01/18/23 08:18 95 Nasal Cannula 2 01/18/23 07:23 95 Nasal Cannula 1 01/18/23 07:09 92 Nasal Cannula 1 01/18/23 04:00 95 Nasal Cannula 1 01/18/23 03:03 97 Oxymask 2 01/18/23 00:00 01/18/23 00:00 97 Nasal Cannula 2 01/17/23 22:39 94 Nasal Cannula 2 01/17/23 19:36 90 Room Air 01/17/23 16:00 Room Air 01/17/23 16:00 01/17/23 15:18 94 Room Air 01/17/23 12:09 94 0 01/17/23 11:16 95 Room Air Recovery Score Activity: Moves 4 extremities Respiration: Deep Breath/Cough Circulation: +/-20-49% PreAnes Value Consciousness: Fully Awake Oxygen Saturation: O2 needed for >90% Post Anesthesia Score: 8 Discharge Sedation Level of Care: Fast Track Phase II Post Sedation Plan On clinical assessment, the patient appears to have tolerated the sedation without complications. Patient is recovering as anticipated. Patient will continue to be monitored by nursing and may be discharged when sedation discharge criteria are met per below protocol. Upon Completions of procedure up to 15 minutes continue every 5 minute vital signs and the P.A.R. score; then discharge to a Phase I or Fast Track to Phase II per the following guidelines: * Discharge Patient to appropriate Phase II area if PAR is 8 or greater or return to pre- procedure baseline. The post - procedure orders will be as directed. * If PAR score is less than 8 or not return to pre-procedure baseline then patient will follow Phase I monitoring till PAR is reached for Phase II. The Phase I may be done in procedure room or may call to secure a Phase I area. * If naloxone or flumazenil are used for reversal, hold in Phase I for continued monitoring from when last reversal dose was given for a minimum of 60 minutes or longer pending the nurse and/or physician discretion of patient condition before discharge to Phase II. Please call the Sedation Physician to re-evaluate and complete post-note for discharge to Phase II area. Do NOT discharge from procedure sedation or Phase 1 until post- sedation evaluation note is complete by procedure /sedation MD Sedation Discharge Instructions to be given to the patient at discharge to home.
[2023-01-18] MEDS: ASPIRIN 81 MG ECTAB PO SCH (10:20)
[2023-01-18] MEDS: CLOPIDOGREL BISULFATE 75 MG TAB PO SCH (10:20)
[2023-01-18] MEDS: HEPARIN SOD 5,000 UNIT/0.5 ML VIAL SQ SCH ×2 (10:21→20:28)
--- NOTE | 2023-01-18 10:23 | Nephrology Progress Note ---
Date of Service January 18, 2023 Assessment & Plan (1) CAROLINA (acute kidney injury): Plan: * CAROLINA due to bilateral renal infarcts and IV contrast administration * Patient is now nonoliguric. He had 1000 cc UO last 24 hous * Last HD was Tuesday01/14/23. Cr remains relatively stable at 3.7 * IJ TCC site with clean dry dressing. Will continue to monitor * Monitor PRP, UO (2) History of thoracic aortic aneurysm repair: Plan: * Type B aortic aneurysm dissection s/p EVAR w/ bilateral renal artery stenting at [facility] 12/23/22 (3) Gram-positive bacteremia: Plan: * 01/13/23 blood culture: coag neg staph, Enterococcus faecalis * Follow up cultures 01/13 and 01/15 are NGTD * Patient remains on IV Daptomycin * Several potential sources of infection including IJ TCC (4) Anemia: Plan: * Hgb mildly improved to 9.1 this am * Epogen 20677 units was provided with HD 01/14/23 * Iron saturation 13% but ferritin > 1200 (01/15/23) precludes IV Venofer Admission and Anticipated Discharge Date Admission Date: January 10, 2023 Subjective Mr. Acosta was evaluated in his hospital room this morning. His brother Rosendo was present at bedside. Mr. Acosta had just returned from removal of his IJ TCC. He denied dyspnea, angina or uremic symptoms Review of Systems Constitutional: no fever Eyes: no problem reported Ear, Nose, Mouth, Throat: no problem reported Respiratory: no cough and no dyspnea Cardiovascular: no chest pain Gastrointestinal: no nausea, no vomiting and no diarrhea/loose stools Physical Exam Constitutional: + ill appearing; not in distress Eyes: PERRL, conjunctivae normal, anicteric sclerae ENMT: external ear and nose normal, oropharynx normal Mouth: + dry oral mucous membranes Neck: trachea midline, no thyromegaly Respiratory: normal respiratory effort, lungs clear to auscultation Cardiovascular: Rate/Rhythm: regular rate, regular rhythm and + tachycardic Gastrointestinal (Abdomen): normal bowel sounds, soft, nontender, no hepatosplenomegaly Skin: normal turgor and + turgor decreased Neurologic: Speech / Cognition: normal speech and normal cognition Results & Data Vital Signs (Past 12 Hours) Vital Signs Temp Pulse Pulse Pulse Resp BP Pulse Ox 01/18/23 09:06 36.8 C 112 H 20 127/76 100 01/18/23 08:52 115 H 20 129/77 96 01/18/23 08:47 112 H 20 142/78 H 99 01/18/23 08:45 116 H 20 116/70 98 01/18/23 08:40 110 H 18 131/90 98 01/18/23 08:18 36.9 C 110 H 24 138/80 95 01/18/23 07:23 36.6 C 102 H 20 126/86 95 01/18/23 07:09 110 H 18 92 01/18/23 04:00 117 H 95 01/18/23 03:03 36.5 C 92 H 20 121/70 97 01/18/23 00:00 125 H 01/18/23 00:00 126 H 24 146/84 H 97 01/17/23 22:39 36.6 C 123 H 22 143/78 H 94 O2 Del Method O2 Flow Rate 01/18/23 09:06 Nasal Cannula 3 01/18/23 08:52 Nasal Cannula 2 01/18/23 08:47 Oxymask 4 01/18/23 08:45 Oxymask 4 01/18/23 08:40 Oxymask 4 01/18/23 08:18 Nasal Cannula 2 01/18/23 07:23 Nasal Cannula 1 01/18/23 07:09 Nasal Cannula 1 01/18/23 04:00 Nasal Cannula 1 01/18/23 03:03 Oxymask 2 01/18/23 00:00 01/18/23 00:00 Nasal Cannula 2 01/17/23 22:39 Nasal Cannula 2 Laboratory Results Laboratory Tests 01/16/23 01/17/23 01/18/23 06:17 05:50 05:40 Sodium 140 Potassium 3.7 Chloride 104 Carbon Dioxide 27 BUN 42 H Creatinine 3.64 H 3.54 H 3.77 H Glucose 124 H Calcium 8.0 L PG Care Time/CCT Total # of Minutes Spent Total Time Spent with Patient: Total time spent is greater than 50% in coordination of care (as documented) at patient's floor/unit and/or counseling patient: Coding Level of Care Code 54776 SUB INP/OBS CARE 3/50MIN Diagnoses CAROLINA (acute kidney injury) N17.9 History of thoracic aortic aneurysm repair Z98.890; Z86.79 Gram-positive bacteremia R78.81 Anemia D64.9
[2023-01-18] MEDS: POLYETHYLENE (MIRALAX) 17 GM PACK PO SCH ×2 (10:25→20:38)
[2023-01-18] MEDS: ALBUTEROL HFA 8 GM INHALER INH PRN (13:01)
--- NOTE | 2023-01-18 18:06 | Hospitalist Progress Note ---
Date of Service January 18, 2023 Assessment & Plan (1) Ambulatory dysfunction: (2) Generalized weakness: (3) ESRD (end stage renal disease) on dialysis: (4) History of thoracic aortic aneurysm repair: (5) Renal cell carcinoma: (6) GERD (gastroesophageal reflux disease): (7) Hypertension: (8) Diabetes mellitus, type 2: (9) CAD (coronary artery disease): (10) Malignant neoplasm of prostate: Plan cardiorespiratory arrest Patient had an episode of cardiorespiratory arrest on 01/12 He was feeling shaky, nauseous for which dialysis needed to be stopped earlier that day He was mildly hypotensive and tachycardic CT angio of the chest abdomen and pelvis was ordered to see if his symptoms and signs had anything to do with his recent thoracic aneurysm repair CT angio was negative However soon after the contrast exposure, even though he was being premedicated, he went into cardiorespiratory arrest Unclear if the cardiorespiratory arrest was completely related to the contrast exposure (since he was feeling poorly all day yesterday) or if he has some issues with disequilibrium with dialysis or if this was related to the bacteremia (now that blood cultures are coming back positive) He is being treated with IV antibiotics Blood cultures positive for GPC's infectious disease on board Improved: off of the vent, off of pressors Monitor clinically GPC bacteremia Staph epidermidis plus Enterococcus faecalis PCR positive Patient is on IV daptomycin. Infectious disease on board The femoral line that was placed on the night of 01/12 after the code has been removed right upper extremity ultrasound ruled out abscess of the antecubital fossa Dialysis catheter was removed today 01/18,A culture was done from the tip of catheter on 01/18 Repeat blood cultures from 01/15 has been negative for 48 hours. Patient also has recently placed endograft which is going to be the biggest concern if he is persistently bacteremic despite all the above measures. Echocardiogram on 01/13 did not mention any vegetation. metabolic encephalopathy Most likely hospital-acquired delirium Patient was given a dose of IV Haldol On Zyprexa p.o. nightly to help with healthy sleep-wake cycle. Will increase the dose to 10 mg p.o. nightly Ambulatory dysfunction/generalized weakness- Status post prolonged stay in recovery from thoracic aneurysm repair patient was recently at [facility] where he had a thoracic aneurysm repair done. The family was under the impression that he was being discharged to a rehab facility but it ended up being [facility]. The patient is too weak and the family is not able to take care of him at [facility] and thus was brought into the emergency room PT/OT on board Case management on board Recent thoracic aneurysm repair CT angio of the chest, abdomen and pelvis was fairly unremarkable Vascular surgery involved. Appreciate their input. Follow-up in 6 months. If persistent bacteremia, may need to pursue the recent endograft as the source. Atrial fibrillation with rapid ventricular response Was seen in consultation by cardiology Currently fairly rate controlled He is at risk of thromboembolic events with an elevated [id number] score. We will hold off on anticoagulation for the time being May need to be started on low-dose Eliquis 2.5 twice daily with his dual antiplatelet therapy when more stable. ESRD on HD- Dialysis catheter will be removed tomorrow 01/18 because of bacteremia. broomcorn grader on board, deciding against dialysis today. Patient most likely has recovering CAROLINA. No indication for dialysis today per broomcorn grader CAD/hypertension/thoracic aortic aneurysm repair- Continue current medications: aspirin, clopidogrel Continued. Metoprolol, amlodipine held. Diabetes mellitus- Hold metformin. Should not be on metformin even on discharge given ESRD Placed on Accu-Cheks with NovoLog SSI Disposition- will likely need inpatient rehab versus SNF Admission and Anticipated Discharge Date Admission Date: January 10, 2023 Subjective Mr. Acosta was evaluated in his hospital room this morning. His brother Rosendo was present at bedside. Mr. Acosta had just returned from removal of his IJ TCC. He denied dyspnea, angina or uremic symptoms Review of Systems Review of Systems: Per HPI Constitutional: no fever Eyes: no problem reported Ear, Nose, Mouth, Throat: no problem reported Respiratory: no cough and no dyspnea Cardiovascular: no chest pain Gastrointestinal: no nausea, no vomiting and no diarrhea/loose stools Physical Exam Physical Exam: Patient not seen Constitutional: WD/WN, vitals as above well developed, + ill appearing and + mechanically ventilated; no acute distress and not in distress Eyes: PERRL, conjunctivae normal, anicteric sclerae no scleral abnormality and no corneal abnormality ENMT: Mallampati Class: III Neck: trachea midline, no thyromegaly normal visual inspection and trachea midline Respiratory: normal respiratory effort, lungs clear to auscultation normal respiratory effort; no respiratory distress Auscultation: lungs clear to auscultation bilaterally Cardiovascular: RRR, no murmur, no edema Rate/Rhythm: regular rate, regular rhythm, + tachycardic and + irregularly irregular Heart Sounds: normal S1 and normal S2 Vessels: normal peripheral pulses Extremities: normal capillary refill; no edema Gastrointestinal (Abdomen): normal bowel sounds, soft, nontender, no hepatosplenomegaly Inspection/Auscultation: abdomen normal to inspection; abdomen not distended Percussion/Palpation: abdomen soft Musculoskeletal: no cyanosis or clubbing, extremities motor strength 5/5 Extremities: no cyanosis and no clubbing Skin: normal turgor and + turgor decreased; no lesions Neurologic: CN's II-XI intact bilaterally and moves all extremities; + not awake Speech / Cognition: normal speech and normal cognition Motor/Sensory: no tremor and no asterixis Psychiatric: Orientation: alert and oriented x 3 Results & Data Results & Data Vital Signs (Past 12 Hours) Vital Signs Temp Pulse Pulse Pulse Resp BP Pulse Ox 01/18/23 16:00 123 H 01/18/23 15:56 37.2 C 113 H 18 135/80 96 01/18/23 13:02 20 91 01/18/23 12:00 114 H 01/18/23 11:20 36.7 C 116 H 20 128/73 97 01/18/23 09:06 36.8 C 112 H 20 127/76 100 01/18/23 08:52 115 H 20 129/77 96 01/18/23 08:47 112 H 20 142/78 H 99 01/18/23 08:45 116 H 20 116/70 98 01/18/23 08:40 110 H 18 131/90 98 01/18/23 08:18 36.9 C 110 H 24 138/80 95 01/18/23 08:00 112 H 01/18/23 08:00 01/18/23 07:23 36.6 C 102 H 20 126/86 95 01/18/23 07:09 110 H 18 92 O2 Del Method O2 Flow Rate 01/18/23 16:00 01/18/23 15:56 Nasal Cannula 01/18/23 13:02 Nasal Cannula 3 01/18/23 12:00 01/18/23 11:20 Nasal Cannula 3 01/18/23 09:06 Nasal Cannula 3 01/18/23 08:52 Nasal Cannula 2 01/18/23 08:47 Oxymask 4 01/18/23 08:45 Oxymask 4 01/18/23 08:40 Oxymask 4 01/18/23 08:18 Nasal Cannula 2 01/18/23 08:00 01/18/23 08:00 Nasal Cannula 3 01/18/23 07:23 Nasal Cannula 1 01/18/23 07:09 Nasal Cannula 1 PG Care Time/CCT Total # of Minutes Spent Total Time Spent with Patient: Total time spent is greater than 50% in coordination of care (as documented) at patient's floor/unit and/or counseling patient: Coding Level of Care Code 95411 SUB INP/OBS CARE 3/50MIN Diagnoses Ambulatory dysfunction R26.2 Generalized weakness R53.1 ESRD (end stage renal disease) on dialysis N18.6; Z99.2 History of thoracic aortic aneurysm repair Z98.890; Z86.79 Renal cell carcinoma C64.9 GERD (gastroesophageal reflux disease) K21.9 Hypertension, unspecified type I10 Hypertension type: unspecified Type 2 diabetes mellitus with other circulatory complication, without long-term current use of insulin E11.59 Diabetes mellitus correction insulin use: without termite control representative use Diabetes mellitus complication status: with circulatory complication Diabetes mellitus complication detail: with other circulatory complications Coronary artery disease involving hopi coronary artery of hopi heart without angina pectoris I25.10 Coronary Disease-Associated Artery/Lesion type: hopi artery [place] vs. transplanted heart: hopi heart Associated angina: without angina Malignant neoplasm of prostate C61 (7) Hypertension Hypertension type: unspecified Qualified Code(s): I10 - Essential (primary) hypertension (8) Diabetes mellitus, type 2 Diabetes mellitus correction insulin use: without correction use Diabetes mellitus complication status: with circulatory complication Diabetes mellitus complication detail: with other circulatory complications Qualified Code(s): E11.59 - Type 2 diabetes mellitus with other circulatory complications (9) CAD (coronary artery disease) Coronary Disease-Associated Artery/Lesion type: hopi artery [place] vs. transplanted heart: hopi heart Associated angina: without angina Qualified Code(s): I25.10 - Atherosclerotic heart disease of hopi coronary artery without angina pectoris
[2023-01-18] MEDS: SIMVASTATIN 40 MG TAB PO SCH (20:30)
[2023-01-18] MEDS: OLANZapine 10 MG TAB PO SCH (20:30)
[2023-01-19] MEDS: DAPTOmycin 525 MG in SYRINGE 0 ML IV SCH (00:13)
[2023-01-19] MEDS ORDERED: LORazepam 2 MG/1 ML VIAL IV STA (05:02)
[2023-01-19 06:18] LABS: Hematocrit (blood only) 24.6 % (42.0-52.0); Hemoglobin 7.8 g/dl (14.0-18.0); Mean Corpuscular Hemoglobin 29.9 pg (25.0-34.0); Mean Corpuscular Hgb Conc 31.7 g/dL (32.0-36.0); Mean Corpuscular Volume 94.3 fL (80.0-100.0); Mean Platelet Volume 10.2 fL (9.4-12.4); Platelet Count 234 K/uL (130-400); RDW Coefficient of Variation 13.9 % (11.5-14.5); Red Blood Count 2.61 M/uL (4.70-6.10); White Blood Count 7.88 K/ul (4.8-10.8)
[2023-01-19 06:47] LABS: Calcium 8.5 mg/dl (8.6-10.3)
[2023-01-19 06:52] LABS: BUN Creatinine Ratio 13.6 (10-20); Creatinine Clr Calc Pharmacy 19.8 ml/min; Est GFR (African American) 19.7 ml/min
[2023-01-19] MEDS: ASPIRIN 81 MG ECTAB PO SCH (08:01)
[2023-01-19] MEDS: CLOPIDOGREL BISULFATE 75 MG TAB PO SCH (08:01)
[2023-01-19] MEDS: HEPARIN SOD 5,000 UNIT/0.5 ML VIAL SQ SCH ×2 (08:02→09:13)
[2023-01-19] MEDS: POLYETHYLENE (MIRALAX) 17 GM PACK PO SCH ×2 (08:06→19:42)
[2023-01-19] MEDS: INSULIN ASPART PER UNIT CHARGE SC SCH ×4 (08:06→21:06)
--- NOTE | 2023-01-19 08:50 | Nephrology Progress Note ---
Date of Service January 19, 2023 Assessment & Plan (1) CAROLINA (acute kidney injury): Plan: * CAROLINA due to bilateral renal infarcts and IV contrast administration * Patient is now nonoliguric. He had 500 cc UO last 24 hours * Last HD was Tuesday01/14/23. Cr remains relatively stable at 3.4 * R IJ TCC was removed 01/18/23. 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 Acosta was evaluated in his hospital room this morning. He was alert and when prompted could speak his name, place and month. Mr. Acosta c/o weakness and a cough productive of thick brown sputum Review of Systems Constitutional: no fever Eyes: no problem reported Ear, Nose, Mouth, Throat: no problem reported Respiratory: no cough and no dyspnea Cardiovascular: no chest pain Gastrointestinal: no nausea, no vomiting and no diarrhea/loose stools Physical Exam Constitutional: + ill appearing; not in distress Eyes: PERRL, conjunctivae normal, anicteric sclerae ENMT: external ear and nose normal, oropharynx normal Mouth: + dry oral mucous membranes Neck: trachea midline, no thyromegaly Respiratory: normal respiratory effort, lungs clear to auscultation Cardiovascular: Rate/Rhythm: regular rate, regular rhythm and + tachycardic Gastrointestinal (Abdomen): normal bowel sounds, soft, nontender, no hepatosplenomegaly Skin: normal turgor and + turgor decreased Neurologic: Speech / Cognition: normal speech and normal cognition Results & Data Vital Signs (Past 12 Hours) Vital Signs Temp Pulse Pulse Resp BP Pulse Ox O2 Del Method 01/19/23 07:39 114 H 01/19/23 07:30 38.0 C H 109 H 19 147/69 H 94 Nasal Cannula 01/19/23 02:48 36.8 C 117 H 20 159/53 H 94 Nasal Cannula 01/19/23 00:00 107 H 01/18/23 22:51 36.5 C 109 H 22 147/93 H 93 Nasal Cannula O2 Flow Rate 01/19/23 07:39 01/19/23 07:30 01/19/23 02:48 2 01/19/23 00:00 01/18/23 22:51 2 Laboratory Results Laboratory Tests 01/18/23 01/19/23 01/19/23 05:40 05:57 05:57 WBC 7.88 Hgb 7.8 L Hct 24.6 L Plt Count 234 Sodium 141 Potassium 4.0 Chloride 104 Carbon Dioxide 25 BUN 46 H Creatinine 3.77 H 3.39 H D Glucose 104 H Calcium 8.5 L PG Care Time/CCT Total # of Minutes Spent Total Time Spent with Patient: Total time spent is greater than 50% in coordination of care (as documented) at patient's floor/unit and/or counseling patient: Coding Level of Care Code 18677 SUB INP/OBS CARE 3/50MIN Diagnoses CAROLINA (acute kidney injury) N17.9 History of thoracic aortic aneurysm repair Z98.890; Z86.79 Gram-positive bacteremia R78.81 Anemia D64.9
[2023-01-19] MEDS ORDERED: EPOETIN ALFA 10,000 UNITS/ML VIAL SQ ONE (10:31)
--- NOTE | 2023-01-19 13:50 | Infectious Disease Progress Nt ---
Date of Service January 19, 2023 Assessment & Plan (1) Gram-positive bacteremia: (2) Cardiac arrest: (3) CAROLINA (acute kidney injury): Plan Micro: 01/18 HD catheter tip cx: NGTD 01/17 BCx x2: NGTD 01/15 BCx x2: NGTD 01/13 BCx x2: Coag neg Staph not lug in 2/4 bottles (R oxacillin, clinda, TMP/SMX. S dapto, tetra, vanc), Staph haemolyticus in 1/4 bottles (R oxacillin, TMP/SMX, clinda. S dapto, tetra, vanc), E faecalis in 2/4 bottles (S amp, vanc). BCID PCR panel + Staph epi, E faecalis 01/12 BCx x2: Coag neg Staph not lugdunensis in 4/4 bottles. BCID PCR panel + Staph epi 01/12 BCx x2: Coag neg Staph not lugdunensis in 2/4 bottles (R oxacillin. S clinda, tetra, TMP/SMX) 01/11 UCx: >3 organisms Abx: Daptomycin 01/12- ongoing Zosyn 01/12-01/13 Problems: # Staph epi bacteremia # E faecalis bacteremia # Acute sinusitis on imaging # Recent thoracic aortic aneurysm repair with graft # R HD catheter: removed 01/18 # left femoral line: removed 01/14 # right great toe screw in place #R AC fossa erythema. 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 He underwent thoracic endovascular aortic repair (TEVAR) on 12/23/22 with [place] endograft. He required renal stenting, kidney function worsened and was started on HD via RIJ permacath. He was discharged to SNF, but there was a mixup in the location and he ended up there for 2 d and presented to ED on 01/10 for placement. On admission, he is HDS, WBC 11.46, Cr 2.09. Flu/covid/rsv negative. 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 There was a trace amount of contrast tracking along the inferior margin of the thoracic graft. The grafts and stents are widely patent. There was no endograft leakage. Vascular surgery was consulted, felt thoracic aortic graft was well-placed, did not feel acute intervention was needed. CT head showed gas fluid levels involving the maxillary, sphenoid, and ethmoid sinuses suggesting acute sinusitis. His course c/b cardiac arrest on 01/12 after scans requiring intubation (s/p extubation). 01/12 blood cultures grew CoNS in 2/4 bottles. Repeat blood cultures later that day post-cardiac arrest again grew CoNS in 4/4 bottles. BCID PCR panel with Staph epi, mec A detected. Blood cultures from 01/13 again grew CoNS in 2/4 bottles, as well as Staph haemolyticus in 1/4 bottles, and E faecalis in 2/4 bottles. Blood cultures were positive before a femoral line was placed on 01/12 in the setting of the code. Femoral line removed 01/14. Pt's HD catheter was removed 01/18. Coag neg Staph in multiple blood cultures is not a contaminant, lisa in conjunction with presenting symptoms, recent endovascular procedure with graft, and central lines. Several possible sources of infection; 1) endovascular graft, 2) central lines-HD catheter, femoral line, 3) History of R great toe metal/screw (no evidence of infection here), 4) R AC fossa tenderness and redness/PIV infiltration (less likely, RUE US showed R basilic vein thrombosis, no evidence of soft tissue abscess), 5) acute sinusitis on imaging (less likely). Interestingly, pt also with E faecalis on 01/13 blood culture. TTE on 01/15 did not demonstrate vegetations. Pt with improving renal function, may be able to stay off HD. Recommendations: -Continue daptomycin 850 mg IV q48h, dosed for CrCl<30. Increased dapto dosing to 10 mg/kg for Enterococcus with DAYNA 2 -Would hold simvastatin if possible while on daptomycin, to minimize risk for toxicities. Can restart after stopping daptomycin. -Check weekly CK. Last CK 30 on 01/15/23 -Pt with increased work of breathing, fever today. Will follow-up CT chest. Note that daptomycin does not have lung penetration -Follow-up repeat blood cultures from 01/15, 01/17 -Follow-up HD catheter tip culture -Favor 6 weeks of IV antibiotics to treat for endovascular infection, given multiple blood cultures with Staph epi from 01/12-01/13, and E faecalis in 2/4 bottles on 01/13, and he had recent endograft placement. -On discharge, check weekly CBC with diff, CMP, CK while on daptomycin to monitor for toxicities -Will need PICC line for outpatient antibiotics closer to discharge, since pt will no longer be undergoing HD and will therefore be unable to receive antibiotics with HD -Would ideally arrange for follow-up with ID locally. -Pt does not clearly have endograft infection on CT--pt's bacteremia could be related to his HD catheter. However, could consider PO antibiotic suppression for the life of the prosthetic graft following the above IV antibiotic course: could consider doxycycline 100 mg PO BID to cover coag neg Staph. Discussed with hospitalist. Will continue to follow. Please page [facility] Call Center with further questions. Admission and Anticipated Discharge Date Admission Date: January 10, 2023 Subjective Subsequent visit was provided via telemedicine using two-way real-time interactive telecommunication between the patient and the telemedicine provider. For the duration of the visit, the provider was performing the assessment from a different facility than the patient. This includesuse of bluetooth stethoscope forauscultationperformed by the telepresenter that the telemedi cine provider can hear if described in the physical exam. [employer] contact information: Please call [facility] . (Phone Number For Physician Use Only) After establishing a telemedicine visit, patient was: Patient was verified with two unique identifiers, Patient/authorized rep acknowledged consent and un derstanding and Gave permission to continue telehealth session Time Spent with Patient: Subsequent => 35 min Febrile to 38 this AM. Remains tachycardic HD catheter removed yesterday. Catheter tip cx NGTD 01/15, 01/17 blood cultures NGTD Pt reports feeling "rough". His thigh is sore. Denies pain elsewhere. Denies shortness of breath, cough, headache, diarrhea Per bedside RN, pt has been delirious, unchanged from prior. Is coughing up mucus. Review of System A complete ROS was performed and is negative except as mentioned in the HPI. Physical Exam Physical Exam: GEN: drowsy, in NAD. HEENT: dry MM, anicteric. CV: difficult to auscultate heart sounds over breath sounds RESP: increased work of breathing. Coarse breath sounds ABD: Soft, non-distended. Non-tender to palpation. EXT: No LE edema. Warm, well-perfused. SKIN: No lesions or rashes on exposed skin. BACK: No paraspinal tenderness or CVA tenderness NEURO: Alert, answering simple questions PSYCH: calm Results & Data Vital Signs (Past 12 Hours) Vital Signs Temp Pulse Pulse Resp BP Pulse Ox O2 Del Method 01/19/23 11:21 36.9 C 118 H 20 138/78 97 Nasal Cannula 01/19/23 08:00 Room Air 01/19/23 07:39 114 H 01/19/23 07:30 38.0 C H 109 H 19 147/69 H 94 Nasal Cannula 01/19/23 02:48 36.8 C 117 H 20 159/53 H 94 Nasal Cannula O2 Flow Rate 01/19/23 11:21 01/19/23 08:00 01/19/23 07:39 01/19/23 07:30 01/19/23 02:48 2 Laboratory Results Short CBC 01/19/23 Range/Units 05:57 WBC 7.88 (4.8-10.8) K/ul Hgb 7.8 L (14.0-18.0) g/dl Hct 24.6 L (42.0-52.0) % Plt Count 234 (130-400) K/uL BMP 01/19/23 05:57 Sodium 141 Potassium 4.0 Chloride 104 Carbon Dioxide 25 BUN 46 H Creatinine 3.39 H D Glucose 104 H Calcium 8.5 L Medications Administered Current Inpatient Medications Acetaminophen (Acetaminophen 500 Mg Tab) 1,000 mg PO Q8H PRN PRN Reason: Pain Stop: 02/09/23 22:24 Last Admin: 01/18/23 16:26 Dose: 1,000 mg Albuterol (Albuterol Hfa 8 Gm Inhaler) 2 puffs INH Q6H PRN PRN Reason: Wheezing Stop: 02/09/23 22:24 Last Admin: 01/18/23 13:01 Dose: 2 puffs Aspirin (Aspirin 81 Mg Ectab) 81 mg PO QAM [facility] Stop: 02/10/23 08:59 Last Admin: 01/19/23 08:01 Dose: 81 mg Budesonide (Budesonide 0.25 Mg/2 Ml Vial (Pulmicort)) 0.25 mg NEB DAILY [facility] Stop: 02/12/23 08:59 Last Admin: 01/18/23 07:09 Dose: 0.25 mg Calcium Carbonate (Calcium Carbonate 500 Mg Chewable Tab) 1,000 mg PO Q4H PRN PRN Reason: Indigestion Stop: 02/10/23 20:42 Last Admin: 01/12/23 05:45 Dose: 1,000 mg Clopidogrel Bisulfate (Clopidogrel Bisulfate 75 Mg Tab) 75 mg PO QAM [facility] Stop: 02/10/23 08:59 Last Admin: 01/19/23 08:01 Dose: 75 mg Dextrose (Dextrose 50% 50 Ml Syringe) 25 - 50 ml IV UD PRN; Protocol PRN Reason: Hypoglycemia Protocol Stop: 02/09/23 22:24 Formoterol Fumarate (Formoterol 20 Mcg/2 Ml Vial) 20 mcg NEB DAILY [facility] Stop: 02/12/23 08:59 Last Admin: 01/18/23 07:09 Dose: 20 mcg Glucagon (Glucagon For Inj 1 Mg Vial) 1 mg SQ UD PRN; Protocol PRN Reason: Hypoglycemia Protocol Stop: 02/09/23 22:24 Glucose (Glucose 10 Tab/Tube) 4 - 8 tab PO UD PRN; Protocol PRN Reason: Hypoglycemia Treatment Stop: 02/09/23 22:24 Glucose (Glucose 40% Gel 15 Gm Tube) 15 - 30 gm PO UD PRN; Protocol PRN Reason: Hypoglycemia Protocol Stop: 02/09/23 22:24 Heparin Sodium (Porcine) (Heparin Sod 5,000 Unit/0.5 Ml Vial) 5,000 units SQ Q12 [facility] Stop: 02/09/23 22:24 Last Admin: 01/19/23 09:13 Dose: Not Given Daptomycin 525 mg/ Syringe 10.5 mls @ 5.25 mls/min IV Q48H GABY; Protocol Stop: 01/31/23 00:00 Last Admin: 01/19/23 00:13 Dose: 5.25 mls/min Insulin Aspart (Insulin Aspart Per Unit Charge) 0 units SC ACHS [facility] Stop: 02/17/23 17:44 Last Admin: 01/19/23 12:04 Dose: 5 units Miscellaneous (Carbohydrates For Hypoglycemia ) 15 - 30 gm PO UD PRN PRN Reason: Hypoglycemia Protocol Stop: 02/09/23 22:24 Olanzapine (Olanzapine 10 Mg Tab) 10 mg PO HS [facility] Stop: 02/16/23 20:59 Last Admin: 01/18/23 20:30 Dose: 10 mg Ondansetron HCl (Ondansetron Inj 2 Mg/Ml 2 Ml Vial) 4 mg IV Q6H PRN PRN Reason: Nausea Stop: 02/09/23 22:24 Last Admin: 01/12/23 12:42 Dose: 4 mg Polyethylene Glycol (Polyethylene (Miralax) 17 Gm Pack) 17 gm PO BID [facility] Stop: 02/09/23 22:24 Last Admin: 01/19/23 08:06 Dose: 17 gm Simvastatin (Simvastatin 40 Mg Tab) 40 mg PO HS [facility] Stop: 02/09/23 22:24 Last Admin: 01/18/23 20:30 Dose: 40 mg
[2023-01-19] MEDS: LIDOCAINE 5% 1 PATCH TD SCH (15:24)
--- NOTE | 2023-01-19 16:36 | CT Scan Report ---
CT chest diagnostic wo con CT DOSE: 789.91 mGy.cm CLINICAL HISTORY: 72 years-old Male with hypoxia. Acute hypoxia TECHNIQUE: Multiaxial CT images of the chest were performed without contrast. A dose lowering techni que was utilized adhering to the principles of ALARA. COMPARISON: 01/12/2023 FINDINGS: Solid 2.7 cm partially calcified right-sided thyroid nodule. No lymphadenopathy identified. Mild cardiomegaly with extensive coronary artery calcifications. Decreased attenuation of the cardia c blood pool suggestive of anemia. Descending thoracic aortic tortuosity with endograft. Fusiform dil ation of the descending thoracic aorta and upper abdominal aorta is again noted measuring 4.7 cm and 4.3 cm respectively which is unchanged. Trace left pleural effusion. There is no pneumothorax. Mild intralobular septal thickening. Mild pulm onary emphysema with bronchial wall thickening. Mild linear consolidation of the right upper lobe fav ors atelectasis. No suspicious pulmonary nodules or masses identified. No acute process of the imaged upper abdomen. Partially imaged 3 mm left renal calculus. Colonic diverticulosis. Moderate colonic f ecal retention. Unremarkable soft tissues. No acute fracture identified. IMPRESSION: 1. Cardiomegaly with mild intralobular septal thickening which may represent a component of pulmonary edema. 2. Emphysema with bronchitis. 3. Trace left pleural effusion. 4. Endograft of the thoracic aortic arch and descending thoracic aorta with unchanged fusiform aneury smal dilation of the aorta. 5. Left nephrolithiasis. ACT 112: Negative or not required by law. Electronically signed by: Pee Cerna M.D. 01/19/2023 4:35 PM
[2023-01-19 16:58] LABS: Appearance Urine Turbid (Clear); Bacteria Urine Automated Negative (Negative); Bilirubin Urine Negative (Negative); Blood Urine 3+ (Negative); Color Urine Yellow; Epithelial Cell Urine Auto >30 /lpf (0-5); Glucose Urine UA Negative (Negative); Ketones Urine Negative (Negative); Leukocyte Esterase Urine Negative (Negative); Nitrite Urine Negative (Negative); Protein Urine 2+ (Negative); Specific Gravity Urine 1.017 (1.000-1.030); Urobilinogen Urine Negative (Negative)
--- NOTE | 2023-01-19 18:19 | Hospitalist Progress Note ---
Date of Service January 19, 2023 Assessment & Plan (1) Ambulatory dysfunction: (2) Generalized weakness: (3) ESRD (end stage renal disease) on dialysis: (4) History of thoracic aortic aneurysm repair: (5) Renal cell carcinoma: (6) GERD (gastroesophageal reflux disease): (7) Hypertension: (8) Diabetes mellitus, type 2: (9) CAD (coronary artery disease): (10) Malignant neoplasm of prostate: Plan Mr. Yaron Acosta is a 72 year-old male with coronary artery disease hypertension, diabetes mellitus, CAD, prostate cance and history of aortic dissection (initial endovascular repair at [facility] in 2008) who was recently admitted to [facility] with type B aortic dissection extending form the L subclavian to a prior EVAR. There was significant thrombus involving the endograft extending into the renal arteries. Yaron presented with kidney injury from bilateral renal infarc tion. He underwent bilateral renal artery stenting with EVAR and IVUS on December 23. Unfortunately, he did require hemodialysis for CAROLINA. Baseline creatinine prior to the admission had been 1.4 mg/dL. HD was started December 20. Yaron has been dialyzing via a RIJ permcath. After an extensive hospitalization, he was discharged home to [facility] in [place]. He was there for 2 days, and the family realized that he needed to have more significant care to get improved, and he has been presented to the ED at [facility] [address] for referral to a rehab facility. On 01/10 the Patient was noted to be in afib and was administered metoprolol. Also his HD was stopped early secondary to patient feeling "miserable and nauseated. He received metoprolol and rhythm turned to sinus rhythm, given history of aortic aneurysm patient underwent CTA of the chest abdomen and pelvis and premedicated when he was at CT scan ~1999 the patient underwent a period of apneic breathing, un-responsive, was very diaphoretic and unarousable , and according to the spot washer note patient was coded more than 1 time Cardiorespiratory arrest Patient had an episode of cardiorespiratory arrest on 01/12 CT angio of the chest abdomen and pelvis was ordered to see if his symptoms and signs had anything to do with his recent thoracic aneurysm repair CT angio was negative However soon after the contrast exposure, even though he was being premedicated, he went into cardiorespiratory arrest Unclear if the cardiorespiratory arrest was completely related to the contrast exposure (since he was feeling poorly all day yesterday) or if he has some issues with disequilibrium with dialysis or if this was related to the bacteremia (now that blood cultures are coming back positive) He is being treated with IV antibiotics Improved: off of the vent, off of pressors Monitor clinically CAROLINA Dialysis catheter was removed on 01/18, patient from a kidney standpoint is doing better, does not require dialysis -No indication for dialysis as per my discussion with nephrology, patient can be discharged to rehab with no dialysis chair --Bladder scan tomorrow Urine looks to Encephalopathy -Possibly anoxic brain injury due to cardiopulmonary arrest Patient was given a dose of IV Haldol On Zyprexa p.o. nightly GPC bacteremia Staph epidermidis plus Enterococcus faecalis PCR positive Patient is on IV daptomycin. Infectious disease on board The femoral line that was placed on the night of 01/12 after the code has been removed right upper extremity ultrasound ruled out abscess of the antecubital fossa Dialysis catheter was removed today 01/18,A culture was done from the tip of catheter on 01/18 Repeat blood cultures from 01/15 has been negative Patient also has recently placed endograft which is going to be the biggest concern if he is persistently bacteremic despite all the above measures. Echocardiogram on 01/13 did not mention any vegetation -Discussed with ID on 01/19 midline can be placed, patient is a 6 weeks treatment with daptomycin, patient is weekly CMP CBC with differential and CPK -Needs to be followed up with one of the local ID is pending discharge to rehab -Holding statin due to fracture Ambulatory dysfunction/generalized weakness- Status post prolonged stay in recovery from thoracic aneurysm repair patient was recently at [facility] where he had a thoracic aneurysm repair done. The family was under the impression that he was being discharged to a rehab facility but it ended up being [facility]. The patient is too weak and the family is not able to take care of him at [facility] and thus was brought into the emergency room PT/OT on board Case management on board Recent thoracic aneurysm repair CT angio of the chest, abdomen and pelvis was fairly unremarkable Vascular surgery involved. Appreciate their input. Follow-up in 6 months. If persistent bacteremia, may need to pursue the recent endograft as the source. Atrial fibrillation with rapid ventricular response Was seen in consultation by cardiology Currently fairly rate controlled He is at risk of thromboembolic events with an elevated [id number] score. We will hold off on anticoagulation for the time being May need to be started on low-dose Eliquis 2.5 twice daily with his dual antiplatelet therapy when more stable. CAD/hypertension/thoracic aortic aneurysm repair- Continue current medications: aspirin, clopidogrel Continued. Metoprolol, amlodipine held. Diabetes mellitus- Placed on Accu-Cheks with NovoLog SSI Disposition- will likely need inpatient rehab versus SNF Admission and Anticipated Discharge Date Admission Date: January 10, 2023 Subjective patient is confused, patient is tachypneic, urine looks turbid, Review of Systems Review of Systems: Per HPI Constitutional: no fever Eyes: no problem reported Ear, Nose, Mouth, Throat: no problem reported Respiratory: no cough and no dyspnea Cardiovascular: no chest pain Gastrointestinal: no nausea, no vomiting and no diarrhea/loose stools Physical Exam Physical Exam: Patient not seen Constitutional: WD/WN, vitals as above well developed, + ill appearing and + mechanically ventilated; no acute distress and not in distress Eyes: PERRL, conjunctivae normal, anicteric sclerae no scleral abnormality and no corneal abnormality ENMT: Mallampati Class: III Neck: trachea midline, no thyromegaly normal visual inspection and trachea midline Respiratory: normal respiratory effort, lungs clear to auscultation normal respiratory effort; no respiratory distress Auscultation: lungs clear to auscultation bilaterally Cardiovascular: RRR, no murmur, no edema Rate/Rhythm: regular rate, regular rhythm, + tachycardic and + irregularly irregular Heart Sounds: normal S1 and normal S2 Vessels: normal peripheral pulses Extremities: normal capillary refill; no edema Gastrointestinal (Abdomen): normal bowel sounds, soft, nontender, no hepatosplenomegaly Inspection/Auscultation: abdomen normal to inspection; abdomen not distended Percussion/Palpation: abdomen soft Musculoskeletal: no cyanosis or clubbing, extremities motor strength 5/5 Extremities: no cyanosis and no clubbing Skin: normal turgor and + turgor decreased; no lesions Neurologic: CN's II-XI intact bilaterally and moves all extremities; + not awake Speech / Cognition: normal speech and normal cognition Motor/Sensory: no tremor and no asterixis Psychiatric: Orientation: alert and oriented x 3 Results & Data Results & Data Vital Signs (Past 12 Hours) Vital Signs Temp Pulse Pulse Resp BP Pulse Ox O2 Del Method 01/19/23 15:54 36.5 C 113 H 21 152/73 H 93 Nasal Cannula 01/19/23 15:41 116 H 01/19/23 11:21 36.9 C 118 H 20 138/78 97 Nasal Cannula 01/19/23 08:00 Room Air 01/19/23 07:39 114 H 01/19/23 07:30 38.0 C H 109 H 19 147/69 H 94 Nasal Cannula O2 Flow Rate 01/19/23 15:54 1 01/19/23 15:41 01/19/23 11:21 01/19/23 08:00 01/19/23 07:39 01/19/23 07:30 PG Care Time/CCT Total # of Minutes Spent Total Time Spent with Patient: Total time spent is greater than 50% in coordination of care (as documented) at patient's floor/unit and/or counseling patient: Coding Level of Care Code 32691 SUB INP/OBS CARE 3/50MIN Diagnoses Ambulatory dysfunction R26.2 Generalized weakness R53.1 ESRD (end stage renal disease) on dialysis N18.6; Z99.2 History of thoracic aortic aneurysm repair Z98.890; Z86.79 Renal cell carcinoma C64.9 GERD (gastroesophageal reflux disease) K21.9 Hypertension, unspecified type I10 Hypertension type: unspecified Type 2 diabetes mellitus with other circulatory complication, without long-term current use of insulin E11.59 Diabetes mellitus snf insulin use: without long term care pharmacist use Diabetes mellitus complication status: with circulatory complication Diabetes mellitus complication detail: with other circulatory complications Coronary artery disease involving la posta coronary artery of la posta heart without angina pectoris I25.10 Coronary Disease-Associated Artery/Lesion type: la posta artery [place] vs. transplanted heart: la posta heart Associated angina: without angina Malignant neoplasm of prostate C61 (7) Hypertension Hypertension type: unspecified Qualified Code(s): I10 - Essential (primary) hypertension (8) Diabetes mellitus, type 2 Diabetes mellitus snf insulin use: without long term care pharmacist use Diabetes mellitus complication status: with circulatory complication Diabetes mellitus complication detail: with other circulatory complications Qualified Code(s): E11.59 - Type 2 diabetes mellitus with other circulatory complications (9) CAD (coronary artery disease) Coronary Disease-Associated Artery/Lesion type: [place] posta artery [place] vs. [place] spl[place] heart: la posta heart Associated angina: without angina Qualified Code(s): I25.10 - Atherosclerotic heart disease of la posta coronary artery without angina pectoris
[2023-01-19] MEDS ORDERED: FUROSEMIDE 40 MG/4 ML VIAL IV ONE (18:45)
[2023-01-19] MEDS: OLANZapine 10 MG TAB PO SCH (19:42)
[2023-01-19] MEDS: APIXABAN 5 MG TABLET PO SCH (21:55)
[2023-01-19] MEDS ORDERED: METOPROLOL TARTRATE 1 MG/ML VIAL IV STA (22:03)
[2023-01-19] MEDS ORDERED: METOPROLOL TARTRATE 50 MG TAB PO STA (22:04)
[2023-01-20] MEDS ORDERED: SODIUM CHLORIDE 0.9% 250 ML BAG IV STA (02:58)
[2023-01-20] MEDS ORDERED: ALBUMIN 25% 25 GM/100 ML VIAL IV ONE (03:02)
[2023-01-20 03:30] LABS: Basophils # (auto) 0.01 K/uL (0.00-0.20); Basophils % (auto) 0.1 %; Eosinophils # (auto) 0.14 K/uL (0.00-0.50); Eosinophils % (auto) 1.8 %; Hematocrit (blood only) 24.8 % (42.0-52.0); Hemoglobin 7.7 g/dl (14.0-18.0); Immature Granulocytes # (auto) 0.05 K/uL (0.01-0.20); Immature Granulocytes % (auto) 0.7 %; Lymphocytes % (auto) 17.2 %; Mean Corpuscular Hemoglobin 28.8 pg (25.0-34.0); Mean Corpuscular Volume 92.9 fL (80.0-100.0); Mean Platelet Volume 10.3 fL (9.4-12.4); Monocytes # (auto) 0.73 K/uL (0.11-0.59); Monocytes % (auto) 9.6 %; Neutrophils # (auto) 5.35 K/uL (1.40-6.50); Neutrophils % (auto) 70.6 %; Nucleated RBC # (auto) 0.02 K/uL (0.00-0.12); Nucleated RBC % (auto) 0.3 %; Platelet Count 259 K/uL (130-400); RDW Coefficient of Variation 14.1 % (11.5-14.5); RDW Standard Deviation 47.8 fL (36.4-46.3); Red Blood Count 2.67 M/uL (4.70-6.10); White Blood Count 7.58 K/ul (4.8-10.8)
[2023-01-20 03:43] LABS: Albumin Level 2.8 gm/dl (3.4-5.0); BUN Creatinine Ratio 16.2 (10-20); Creatinine Clr Calc Pharmacy 19.8 ml/min; Est GFR (African American) 19.6 ml/min; Est GFR (Non-African American) 16.9 ml/min; Phosphorus 5.6 mg/dl (2.5-4.9); Potassium 4.5 mmol/L (3.5-5.1)
[2023-01-20 03:45] LABS: BUN Creatinine Ratio 15.8 (10-20); Calcium 8.9 mg/dl (8.6-10.3); Creatinine Clr Calc Pharmacy 19.2 ml/min; Est GFR (Non-African American) 16.4 ml/min; Potassium 4.5 mmol/L (3.5-5.1)
[2023-01-20 03:51] LABS: Polychromasia 1+
[2023-01-20] MEDS ORDERED: ACETAMINOPHEN 1,000 MG/100 ML VIAL IV STA (04:47)
--- NOTE | 2023-01-20 07:12 | XRay Report ---
SINGLE VIEW CHEST CLINICAL HISTORY: Hypoxia. FINDINGS: An AP, portable, upright chest radiograph is compared to study date 01/12/2023 and correlate d with chest CT dictated 01/19/2023. The examination is degraded by portable technique and apical lord otic positioning. The heart is enlarged. The pulmonary vasculature is noncongested. A stent graft is again seen in the thoracic aorta. Emphysema and chronic interstitial thickening similar to previous. There is bibasilar scarring/atelectasis. Question developing airspace opacities in the left lower clare g. No large pleural effusion or pneumothorax is identified. The skeletal structures are osteopenic. T he bony thorax is grossly intact. IMPRESSION: 1. Cardiomegaly and emphysema without radiographic evidence of congestive failure. 2. Question developing airspace opacities in the left lower lung. Correlate clinically for evidence o f a mild infectious/inflammatory pneumonitis. Radiographic follow-up to resolution is recommended. ACT 112: Negative or not required by law. Electronically signed by: Mando Alfonso M.D. 01/20/2023 7:10 AM
[2023-01-20] MEDS: BUDESONIDE 0.25 MG/2 ML VIAL (PULMICORT) NEB SCH (07:20)
[2023-01-20] MEDS: FORMOTEROL 20 MCG/2 ML VIAL NEB SCH (07:20)
[2023-01-20] MEDS: APIXABAN 5 MG TABLET PO SCH ×2 (08:27→21:35)
[2023-01-20] MEDS: CLOPIDOGREL BISULFATE 75 MG TAB PO SCH (08:27)
[2023-01-20] MEDS: ASPIRIN 81 MG ECTAB PO SCH (08:27)
[2023-01-20] MEDS: POLYETHYLENE (MIRALAX) 17 GM PACK PO SCH (08:28)
[2023-01-20] MEDS: INSULIN ASPART PER UNIT CHARGE SC SCH ×4 (08:36→23:21)
--- NOTE | 2023-01-20 09:05 | Nephrology Progress Note ---
Date of Service January 20, 2023 Assessment & Plan (1) CAROLINA (acute kidney injury): Plan: * CAROLINA due to bilateral renal infarcts and IV contrast administration * Patient is now nonoliguric. He had 750 cc UO last 24 hours * Last HD was Tuesday01/14/23. Cr remains relatively stable at 3.4 * R IJ TCC was removed 01/18/23. IJ site with clean dry dressing in place * Monitor PRP, UO (2) History of thoracic aortic aneurysm repair: Plan: * Type B aortic aneurysm dissection s/p EVAR w/ bilateral renal artery stenting at [facility] 12/23/22 (3) Gram-positive bacteremia: Plan: * Afebrile last 24 hours * IJ TCC and femoral CVC have been removed * 01/13/23 blood culture: coag neg staph, Enterococcus faecalis * Follow up cultures 01/13 and 01/15 are NGTD * 01/18/23 IJ TCC tip culture - NGTD * Patient remains on IV Daptomycin. Continue to check CK weekly (4) Anemia: Plan: * Hgb 7.7 this am * 01/15/23 iron saturation 13% * 01/20/23 ferritin > 1700 precludes IV Venofer * Epogen 10,000 units SQ x1 administered 01/19/23 Admission and Anticipated Discharge Date Admission Date: January 10, 2023 Subjective Mr. Acosta was evaluated in his hospital room this morning. He was alert and when prompted could speak his name, place and month. Mr. Acosta c/o weakness Review of Systems Constitutional: no fever Eyes: no problem reported Ear, Nose, Mouth, Throat: no problem reported Respiratory: no cough and no dyspnea Cardiovascular: no chest pain Gastrointestinal: no nausea, no vomiting and no diarrhea/loose stools Physical Exam Constitutional: + frail appearing; not in distress Eyes: PERRL, conjunctivae normal, anicteric sclerae ENMT: external ear and nose normal, oropharynx normal Mouth: + dry oral mucous membranes Neck: trachea midline, no thyromegaly Respiratory: normal respiratory effort, lungs clear to auscultation Cardiovascular: Rate/Rhythm: regular rate, regular rhythm and + tachycardic Gastrointestinal (Abdomen): normal bowel sounds, soft, nontender, no hepatosplenomegaly Skin: normal turgor and + turgor decreased Neurologic: Speech / Cognition: normal speech and normal cognition Results & Data Vital Signs (Past 12 Hours) Vital Signs Temp Pulse Pulse Resp BP BP BP 01/20/23 08:00 36.8 C 83 19 109/66 01/20/23 07:47 93 H 01/20/23 07:21 68 20 01/20/23 07:10 93 H 36 H 114/72 01/20/23 04:00 36.7 C 91 H 42 H 99/63 L 01/20/23 03:30 36.8 C 96 H 24 106/72 01/20/23 02:58 36.6 C 135 H 42 H 104/69 01/20/23 00:00 149 H 01/19/23 22:45 36.7 C 130 H 24 106/65 01/19/23 22:38 130 H 40 H 111/63 01/19/23 22:32 130 H 111/63 01/19/23 22:17 160 H 105/66 01/19/23 22:16 151 H 105/66 01/19/23 22:00 Pulse Ox O2 Del Method O2 Flow Rate 01/20/23 08:00 93 Nasal Cannula 2 01/20/23 07:47 01/20/23 07:21 96 Nasal Cannula 2 01/20/23 07:10 95 Nasal Cannula 3 01/20/23 04:00 95 Nasal Cannula 3 01/20/23 03:30 98 Nasal Cannula 3 01/20/23 02:58 95 Nasal Cannula 3 01/20/23 00:00 01/19/23 22:45 92 Nasal Cannula 3 01/19/23 22:38 94 Nasal Cannula 3 01/19/23 22:32 01/19/23 22:17 01/19/23 22:16 01/19/23 22:00 Nasal Cannula 3 Laboratory Results Laboratory Tests 01/20/23 03:14 WBC 7.58 Hgb 7.7 L Hct 24.8 L Plt Count 259 Sodium 141 Potassium 4.5 Chloride 104 Carbon Dioxide 26 BUN 55 H Creatinine 3.40 H Glucose 131 H Calcium 9.0 Phosphorus 5.6 H Transferrin % Sat 13 L Ferritin 1773.0 H 01/17/23 Blood cultures - NGTD 01/18/23 Catheter tip - NGTD PG Care Time/CCT Total # of Minutes Spent Total Time Spent with Patient: Total time spent is greater than 50% in coordination of care (as documented) at patient's floor/unit and/or counseling patient: Coding Level of Care Code 13562 SUB INP/OBS CARE MIN Diagnoses CAROLINA (acute kidney injury) N17.9 History of thoracic aortic aneurysm repair Z98.890; Z86.79 Gram-positive bacteremia R78.81 Anemia D64.9
[2023-01-20] MEDS: LIDOCAINE 5% 1 PATCH TD SCH (09:14)
--- NOTE | 2023-01-20 12:33 | Electrocardiogram Report ---
Test Reason : Blood Pressure : / mmHG Vent. Rate : 151 BPM Atrial Rate : 131 BPM P-R Int : 000 ms QRS Dur : 088 ms QT Int : 262 ms P-R-T Axes : 000 -85 069 degrees QTc Int : 415 ms Atrial fibrillation with rapid ventricular response Left axis deviation Abnormal ECG When compared with ECG of 15-JAN-2023 01:12, Atrial fibrillation has replaced Sinus rhythm Vent. rate has increased BY 51 BPM Confirmed by Brendon Giang ([id number]) on 01/20/2023 12:33:32 PM Referred By: REFERRED SELF Confirmed By:Brendon Giang
[2023-01-20] MEDS ORDERED: POLYETHYLENE (MIRALAX) 17 GM PACK PO PRN (14:06)
[2023-01-20] MEDS ORDERED: FUROSEMIDE 40 MG/4 ML VIAL IV ONE (15:39)
--- NOTE | 2023-01-20 16:20 | XRay Report ---
XR chest 1V portable HISTORY: 72 years-old Male Check PICC line placement status post placement of a right-sided PICC COMPARISON: 01/20/2023 at 3:40 AM TECHNIQUE: AP view of the chest FINDINGS: Cardiac silhouette is enlarged. Pulmonary vascular congestion. There is improved aeration of the left lung. Thoracic aortic endograft redemonstrated. No pneumothorax or large pleural effusion. A right-s ided PICC has been placed with distal tip in the expected location of the mid SVC. IMPRESSION: 1. Status post placement of a right-sided PICC, distal tip within the expected location of the mid SV C. 2. No pneumothorax. 3. Cardiomegaly with pulmonary vascular congestion. 4. Improved aeration of the left lung. ACT 112: Negative or not required by law. The above report was generated using voice recognition software. It may contain grammatical, syntax o r spelling errors. Electronically signed by: Pee Cerna M.D. 01/20/2023 4:19 PM
--- NOTE | 2023-01-20 19:41 | Hospitalist Progress Note ---
Date of Service January 20, 2023 Assessment & Plan (1) Ambulatory dysfunction: (2) Generalized weakness: (3) ESRD (end stage renal disease) on dialysis: (4) History of thoracic aortic aneurysm repair: (5) Renal cell carcinoma: (6) GERD (gastroesophageal reflux disease): (7) Hypertension: (8) Diabetes mellitus, type 2: (9) CAD (coronary artery disease): (10) Malignant neoplasm of prostate: Plan Mr. 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 There was significant thrombus involving the endograft extending into the renal arteries. Yaron presented with kidney injury from bilateral renal infarc tion. He underwent bilateral renal artery stenting with EVAR and IVUS on December 23. Unfortunately, he did require hemodialysis for CAROLINA. Baseline creatinine prior to the admission had been 1.4 mg/dL. HD was started December 20. Yaron has been dialyzing via a RIJ permcath. After an extensive hospitalization, he was discharged home to [facility] in [place]. He was there for 2 days, and the family realized that he needed to have more significant care to get improved, and he has been presented to the ED at [facility] for referral to a rehab facility. On 01/10 the Patient was noted to be in afib and was administered metoprolol. Also his HD was stopped early secondary to patient feeling "miserable and nauseated. He received metoprolol and rhythm turned to sinus rhythm, given history of aortic aneurysm patient underwent CTA of the chest abdomen and pelvis and premedicated when he was at CT scan ~1999 the patient underwent a period of apneic breathing, un-responsive, was very diaphoretic and unarousable , and according to the bowling alley floors installer note patient was coded more than 1 time Cardiorespiratory arrest Patient had an episode of cardiorespiratory arrest on 01/12 CT angio of the chest abdomen and pelvis was ordered to see if his symptoms and signs had anything to do with his recent thoracic aneurysm repair CT angio was negative However soon after the contrast exposure, even though he was being premedicated, he went into cardiorespiratory arrest Unclear if the cardiorespiratory arrest was completely related to the contrast exposure (since he was feeling poorly all day today before) or if he has some issues with disequilibrium with dialysis or if this was related to the bacteremia Improved: off of the vent, off of pressors Monitor clinically CAROLINA Dialysis catheter was removed on 01/18, patient from a kidney standpoint is doing better, does not require dialysis -No indication for dialysis as per my discussion with nephrology, patient can be discharged to rehab with no dialysis chair --Bladder scan tomorrow Her urinalysis on 01/19 shows pyuria but not bacteria Metabolic encephalopathy -Improving, according to the daughter after cardiac arrest his mental status back to normal, most likely his encephalopathy is secondary to sepsis versus medication side effect Currently patient is not confused, however had episode of hallucination, possibly medication side effect GPC bacteremia Staph epidermidis plus Enterococcus faecalis PCR positive Patient is on IV daptomycin. Infectious disease on board The femoral line that was placed on the night of 01/12 after the code has been removed right upper extremity ultrasound ruled out abscess of the antecubital fossa Dialysis catheter was removed today 01/18,A culture was done from the tip of catheter on 01/18 Repeat blood cultures from 01/15 has been negative Patient also has recently placed endograft which is going to be the biggest concern if he is persistently bacteremic despite all the above measures. Echocardiogram on 01/13 did not mention any vegetation -Discussed with ID on 01/19 midline can be placed, patient is a 6 weeks treatment with daptomycin, patient is weekly CMP CBC with differential and CPK -Needs to be followed up with one of the local ID is pending discharge to rehab -Holding statin due to fracture Ambulatory dysfunction/generalized weakness- Status post prolonged stay in recovery from thoracic aneurysm repair patient was recently at [facility] where he had a thoracic aneurysm repair done. The family was under the impression that he was being discharged to a rehab facility but it ended up being [facility]. The patient is too weak and the family is not able to take care of him at [facility] and thus was brought into the emergency room PT/OT on board Case management on board Recent thoracic aneurysm repair CT angio of the chest, abdomen and pelvis was fairly unremarkable Vascular surgery involved. Appreciate their input. Follow-up in 6 months. If persistent bacteremia, may need to pursue the recent endograft as the source. Atrial fibrillation with rapid ventricular response Was seen in consultation by cardiology Currently fairly rate controlled He is at risk of thromboembolic events with an elevated [id number] score. We will hold off on anticoagulation for the time being May need to be started on low-dose Eliquis 2.5 twice daily with his dual antiplatelet therapy when more stable. CAD/hypertension/thoracic aortic aneurysm repair- Continue current medications: aspirin, clopidogrel Continued. Metoprolol, amlodipine held. Diabetes mellitus- Placed on Accu-Cheks with NovoLog SSI Disposition- To rehab possibly within 24 to 48 hours Admission and Anticipated Discharge Date Admission Date: January 10, 2023 Subjective The patient was examined today, answer question appropriately, no evidence of confusion anymore, however according to the daughter the patient has episodes of hallucinations, discussed with the daughter, she gave the consent for PICC line placement Physical Exam Physical Exam: Patient not seen Constitutional: WD/WN, vitals as above well developed, + ill appearing, + frail appearing and + mechanically ventilated; no acute distress and not in distress Eyes: PERRL, conjunctivae normal, anicteric sclerae no scleral abnormality and no corneal abnormality ENMT: Mallampati Class: III Neck: trachea midline, no thyromegaly normal visual inspection and trachea midline Respiratory: normal respiratory effort, lungs clear to auscultation normal respiratory effort; no respiratory distress Auscultation: lungs clear to auscultation bilaterally Cardiovascular: RRR, no murmur, no edema Rate/Rhythm: regular rate, regular rhythm, + tachycardic and + irregularly irregular Heart Sounds: normal S1 and normal S2 Vessels: normal peripheral pulses Extremities: normal capillary refill; no edema Gastrointestinal (Abdomen): normal bowel sounds, soft, nontender, no hepatosplenomegaly Inspection/Auscultation: abdomen normal to inspection; abdomen not distended Percussion/Palpation: abdomen soft Musculoskeletal: no cyanosis or clubbing, extremities motor strength 5/5 Extremities: no cyanosis and no clubbing Skin: normal turgor and + turgor decreased; no lesions Neurologic: CN's II-XI intact bilaterally and moves all extremities; + not awake Speech / Cognition: normal speech and normal cognition Motor/Sensory: no tremor and no asterixis Psychiatric: Orientation: alert and oriented x 3 Results & Data Results & Data Vital Signs (Past 12 Hours) Vital Signs Temp Pulse Pulse Resp BP Pulse Ox O2 Del Method 01/20/23 16:00 104 H 01/20/23 12:00 36.7 C 97 H 17 104/50 L Nasal Cannula 01/20/23 08:00 93 H 01/20/23 08:00 Nasal Cannula 01/20/23 08:00 36.8 C 83 19 109/66 93 Nasal Cannula 01/20/23 07:47 93 H O2 Flow Rate 01/20/23 16:00 01/20/23 12:00 2 01/20/23 08:00 01/20/23 08:00 3 01/20/23 08:00 2 01/20/23 07:47 PG Care Time/CCT Total # of Minutes Spent Total Time Spent with Patient: Total time spent is greater than 50% in coordination of care (as documented) at patient's floor/unit and/or counseling patient: Coding Level of Care Code 02028 SUB INP/OBS CARE 3/50MIN Diagnoses Ambulatory dysfunction R26.2 Generalized weakness R53.1 ESRD (end stage renal disease) on dialysis N18.6; Z99.2 History of thoracic aortic aneurysm repair Z98.890; Z86.79 Renal cell carcinoma C64.9 GERD (gastroesophageal reflux disease) K21.9 Hypertension, unspecified type I10 Hypertension type: unspecified Type 2 diabetes mellitus with other circulatory complication, without long-term current use of insulin E11.59 Diabetes mellitus shelter insulin use: without termite exterminator helper use Diabetes mellitus complication status: with circulatory complication Diabetes mellitus complication detail: with other circulatory complications Coronary artery disease involving [place] coronary artery of [place] heart without angina pectoris I25.10 Coronary Disease-Associated Artery/Lesion type: [place] artery [place] vs. transplanted heart: [place] heart Associated angina: without angina Malignant neoplasm of prostate C61 (7) Hypertension Hypertension type: unspecified Qualified Code(s): I10 - Essential (primary) hypertension (8) Diabetes mellitus, type 2 Diabetes mellitus shelter insulin use: without shelter use Diabetes mellitus complication status: with circulatory complication Diabetes mellitus complication detail: with other circulatory complications Qualified Code(s): E11.59 - Type 2 diabetes mellitus with other circulatory complications (9) CAD (coronary artery disease) Coronary Disease-Associated Artery/Lesion type: [place] artery [place] vs. transplanted heart: [place] heart Associated angina: without angina Qualified Code(s): I25.10 - Atherosclerotic heart disease of [place] coronary artery without angina pectoris
[2023-01-20] MEDS: OLANZapine 10 MG TAB PO SCH (21:33)
[2023-01-20] MEDS: LACTULOSE SYRUP 30 GM/45 ML UDP PO SCH (21:36)
[2023-01-20] MEDS ORDERED: OLANZapine 10 MG/2.1 ML SDV IM ONE (23:00)
[2023-01-21] MEDS ORDERED: DAPTOmycin 850 MG in SYRINGE 0 ML IV SCH
[2023-01-21] MEDS: BUDESONIDE 0.25 MG/2 ML VIAL (PULMICORT) NEB SCH (07:15)
[2023-01-21] MEDS: FORMOTEROL 20 MCG/2 ML VIAL NEB SCH (07:15)
[2023-01-21 08:37] LABS: Calcium 9.2 mg/dl (8.6-10.3); Creatinine Clr Calc Pharmacy 19.9 ml/min; Est GFR (African American) 19.4 ml/min; Est GFR (Non-African American) 16.8 ml/min; Potassium 4.1 mmol/L (3.5-5.1)
--- NOTE | 2023-01-21 08:47 | Nephrology Progress Note ---
Date of Service January 21, 2023 Assessment & Plan (1) CAROLINA (acute kidney injury): Plan: * CAROLINA due to bilateral renal infarct and IV contrast administration * Patient is nonoliguric. UO 500 cc last 8 hours. Patient is only net + 300 cc volume since admission * Last HD was Tuesday01/14/23. Cr remains relatively stable at 3.4 * R IJ TCC was removed 01/18/23. IJ site with clean dry dressing in place * Monitor PRP, UO (2) History of thoracic aortic aneurysm repair: Plan: * Type B aortic aneurysm dissection s/p EVAR w/ bilateral renal artery stenting at [facility] 12/23/22 (3) Gram-positive bacteremia: Plan: * Afebrile last 48 hours * IJ TCC and femoral CVC have been removed * 01/13/23 blood culture: coag neg staph, Enterococcus faecalis * Follow up cultures 01/13 and 01/15 are NGTD * 01/18/23 IJ TCC tip culture - NGTD * Patient remains on IV Daptomycin. Continue to check CK weekly (4) Anemia: Plan: * Hgb 7.7 this am * 01/15/23 iron saturation 13% * 01/20/23 ferritin > 1700 precludes IV Venofer * Epogen 10,000 units SQ x1 administered 01/19/23 Admission and Anticipated Discharge Date Admission Date: January 10, 2023 Subjective Mr. Acosta was evaluated in his hospital room this morning. He was alert and when prompted could speak his name, place and month. Mr. Acosta remains profoundly weak Review of Systems Constitutional: no fever Eyes: no problem reported Ear, Nose, Mouth, Throat: no problem reported Respiratory: no cough and no dyspnea Cardiovascular: no chest pain Gastrointestinal: no nausea, no vomiting and no diarrhea/loose stools Physical Exam Constitutional: + ill appearing and + frail appearing; n ot in distress Eyes: PERRL, conjunctivae normal, anicteric sclerae ENMT: external ear and nose normal, oropharynx normal Mouth: + dry oral mucous membranes Neck: trachea midline, no thyromegaly Respiratory: normal respiratory effort, lungs clear to auscultation Cardiovascular: Rate/Rhythm: regular rate, regular rhythm and + tachycardic Gastrointestinal (Abdomen): normal bowel sounds, soft, nontender, no hepatosplenomegaly Skin: normal turgor and + turgor decreased Neurologic: Speech / Cognition: normal speech and normal cognition Results & Data Vital Signs (Past 12 Hours) Vital Signs Temp Pulse Pulse Resp BP Pulse Ox O2 Del Method 01/21/23 08:17 36.4 C L 106 H 113/44 L 94 Nasal Cannula 01/21/23 07:15 102 H 20 95 Nasal Cannula 01/21/23 03:08 37 C 120 H 21 142/71 H 93 Nasal Cannula 01/21/23 00:00 36.6 C 96 H 20 122/85 92 Nasal Cannula 01/21/23 00:00 121 H O2 Flow Rate 01/21/23 08:17 2 01/21/23 07:15 2 01/21/23 03:08 2 01/21/23 00:00 2 01/21/23 00:00 Laboratory Results Laboratory Tests 01/14/23 01/15/23 01/17/23 03:36 03:23 05:50 Sodium Potassium Chloride Carbon Dioxide BUN Creatinine 6.18 H* D 3.60 H 3.54 H Glucose 01/20/23 01/21/23 01/21/23 03:14 07:23 07:23 Sodium 144 Potassium Chloride Carbon Dioxide 27 BUN 65 H Creatinine 3.49 H 3.43 H Glucose 156 H 01/21/23 07:23 Sodium Potassium 4.1 Chloride 106 Carbon Dioxide BUN Creatinine Glucose PG Care Time/CCT Total # of Minutes Spent Total Time Spent with Patient: Total time spent is greater than 50% in coordination of care (as documented) at patient's floor/unit and/or counseling patient: Coding Level of Care Code 18273 SUB INP/OBS CARE 3/50MIN Diagnoses CAROLINA (acute kidney injury) N17.9 History of thoracic aortic aneurysm repair Z98.890; Z86.79 Gram-positive bacteremia R78.81 Anemia D64.9
[2023-01-21] MEDS: CLOPIDOGREL BISULFATE 75 MG TAB PO SCH (08:52)
[2023-01-21] MEDS: ASPIRIN 81 MG ECTAB PO SCH (08:52)
[2023-01-21] MEDS: LACTULOSE SYRUP 30 GM/45 ML UDP PO SCH ×2 (08:53→13:05)
[2023-01-21] MEDS: APIXABAN 5 MG TABLET PO SCH (08:53)
[2023-01-21] MEDS: LIDOCAINE 5% 1 PATCH TD SCH (08:55)
[2023-01-21] MEDS: INSULIN ASPART PER UNIT CHARGE SC SCH ×3 (08:57→17:32)
--- NOTE | 2023-01-21 12:42 | Electrocardiogram Report ---
Test Reason : Blood Pressure : / mmHG Vent. Rate : 128 BPM Atrial Rate : 128 BPM P-R Int : 000 ms QRS Dur : 092 ms QT Int : 286 ms P-R-T Axes : 000 -67 080 degrees QTc Int : 417 ms Atrial fibrillation with rapid ventricular response Left axis deviation Abnormal ECG When compared with ECG of 19-JAN-2023 22:05, No significant change was found Confirmed by Brendon Giagn ([id number]) on 01/21/2023 12:41:52 PM Referred By: REFERRED SELF Confirmed By:Brendon Giang
--- NOTE | 2023-01-21 14:48 | Infectious Disease Progress Nt ---
Date of Service January 21, 2023 Assessment & Plan (1) Gram-positive bacteremia: (2) Cardiac arrest: (3) CAROLINA (acute kidney injury): Plan Micro: 01/18 HD catheter tip cx: NG 01/17 BCx x2: NGTD 01/15 BCx x2: NG 01/13 BCx x2: Coag neg Staph not lug in 2/4 bottles (R oxacillin, clinda, TMP/SMX. S dapto, tetra, vanc), Staph haemolyticus in 1/4 bottles (R oxacillin, TMP/SMX, clinda. S dapto, tetra, vanc), E faecalis in 2/4 bottles (S amp, vanc). BCID PCR panel + Staph epi, E faecalis 01/12 BCx x2: Coag neg Staph not lugdunensis in 4/4 bottles. BCID PCR panel + Staph epi 01/12 BCx x2: Coag neg Staph not lugdunensis in 2/4 bottles (R oxacillin. S clinda, tetra, TMP/SMX) 01/11 UCx: >3 organisms Abx: Daptomycin 01/12- ongoing Zosyn 01/12-01/13 Problems: # Staph epi bacteremia # E faecalis bacteremia # Acute sinusitis on imaging # Recent thoracic aortic aneurysm repair with graft # R HD catheter: removed 01/18 # left femoral line: removed 01/14 # right great toe screw in place #R AC fossa erythema. 72 yo male with history of of PR s/p PCI (2000), prostate cancer s/p prostatectomy, HTN, DM2, renal cell carcinoma s/p partial L nephrectomy (2014), LLE DVT (2020), prior history of AAA s/p EVAR (2008), recently admitted to [facility] 12/18-01/08 with type B aortic dissection with aortic thrombus and concern for renal infarcts. He underwent thoracic endovascular aortic repair (TEVAR) on 12/23/22 with [place] endograft. He required renal stenting, kidney function worsened and was started on HD via RIJ permacath. He was discharged to SNF, but there was a mixup in the location and he ended up there for 2 d and presented to ED on 01/10 for placement. On admission, he is HDS, WBC 11.46, Cr 2.09. Flu/covid/rsv negative. 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 There was a trace amount of contrast tracking along the inferior margin of the thoracic graft. The grafts and stents are widely patent. There was no endograft leakage. Vascular surgery was consulted, felt thoracic aortic graft was well-placed, did not feel acute intervention was needed. CT head showed gas fluid levels involving the maxillary, sphenoid, and ethmoid sinuses suggesting acute sinusitis. His course c/b cardiac arrest on 01/12 after scans requiring intubation (s/p extubation). 01/12 blood cultures grew CoNS in 2/4 bottles. Repeat blood cultures later that day post-cardiac arrest again grew CoNS in 4/4 bottles. BCID PCR panel with Staph epi, mec A detected. Blood cultures from 01/13 again grew CoNS in 2/4 bottles, as well as Staph haemolyticus in 1/4 bottles, and E faecalis in 2/4 bottles. Blood cultures were positive before a femoral line was placed on 01/12 in the setting of the code. Femoral line removed 01/14. Pt's HD catheter was removed 01/18. Blood cultures cleared on 01/15. Catheter tip culture finalized as NG. PICC inserted on 01/20. Coag neg Staph in multiple blood cultures is not a contaminant, lisa in conjunction with presenting symptoms, recent endovascular procedure with graft, and central lines. Several possible sources of infection; 1) endovascular graft, 2) central lines-HD catheter, femoral line, 3) History of R great toe metal/screw (no evidence of infection here), 4) R AC fossa tenderness and redness/PIV infiltration (less likely, RUE US showed R basilic vein thrombosis, no evidence of soft tissue abscess), 5) acute sinusitis on imaging (less likely). Interestingly, pt also with E faecalis on 01/13 blood culture. TTE on 01/15 did not demonstrate vegetations. Pt with improving renal function, may be able to stay off HD. Pt with new fever to 38 on 01/19, increased work of breathing. CT chest on 01/19 with cardiomegaly with mild intralobular septal thickening which may represent a component of pulm edema, emphysema with bronchitis, trace L pleural effusion, endograft with unchanged fusiform aneurysmal dilation of aorta. Recommendations: -Continue daptomycin 850 mg IV q48h, dosed for CrCl<30 (would need dose adjustment to q24h if CrCl improves > 30). Increased dapto dosing to 10 mg/kg for Enterococcus with DAYNA 2 -Would hold simvastatin if possible while on daptomycin, to minimize risk for toxicities. Can restart after stopping daptomycin. -Check weekly CK. Last CK 30 on 01/15/23. Next check scheduled for 01/22/23 -Favor 6 weeks of IV daptomycin to treat for endovascular infection, given mul tiple blood cultures with Staph epi from 01/12-01/13, and E faecalis in 2/4 bottles on 01/13, and he is high risk for graft infection with recent endograft placement. -On discharge, check weekly CBC with diff, CMP, CK while on daptomycin to monitor for toxicities -Would ideally arrange for follow-up with ID locally. -Pt does not clearly have endograft infection on CT--pt's bacteremia could be related to his HD catheter. However, could consider PO antibiotic suppression for the life of the prosthetic graft following the above IV antibiotic course: could consider doxycycline 100 mg PO BID to cover coag neg Staph. Will sign off. Please page [facility] Call Center with further questions. Admission and Anticipated Discharge Date Admission Date: January 10, 2023 Subjective This patient recommendation is based on a telemedicine consult request which was completed asynchronously through chart review and information provided by the primary physician. The patient was not seen or examined today. The evaluation is consultative in nature and all patient care and treatment decisions can either be accepted or rejected by the patient's primary hospital-based treating physician using their own independent medical judgment for their patient. Time Spent Reviewing Chart: 11 - 20 minutes No acute events Afebrile Review of System Patient not seen Physical Exam Physical Exam: Patient not seen Results & Data Vital Signs (Past 12 Hours) Vital Signs Temp Pulse Resp BP Pulse Ox O2 Del Method O2 Flow Rate 01/21/23 11:32 89 141/71 H 92 Nasal Cannula 2 01/21/23 08:17 36.4 C L 106 H 113/44 L 94 Nasal Cannula 2 01/21/23 07:15 102 H 20 95 Nasal Cannula 2 01/21/23 03:08 37 C 120 H 21 142/71 H 93 Nasal Cannula 2 Laboratory Results [facility] 01/21/23 07:23 Sodium 144 Potassium 4.1 Chloride 106 Carbon Dioxide 27 BUN 65 H Creatinine 3.43 H Glucose 156 H Calcium 9.2 Medications Administered Current Inpatient Medications Acetaminophen (Acetaminophen 500 Mg Tab) 1,000 mg PO Q8H PRN PRN Reason: Pain Stop: 02/09/23 22:24 Last Admin: 01/18/23 16:26 Dose: 1,000 mg Albuterol (Albuterol Hfa 8 Gm Inhaler) 2 puffs INH Q6H PRN PRN Reason: Wheezing Stop: 02/09/23 22:24 Last Admin: 01/18/23 13:01 Dose: 2 puffs Apixaban (Apixaban 5 Mg Tablet) 5 mg PO BID [facility] Stop: 02/18/23 20:59 Last Admin: 01/21/23 08:53 Dose: 5 mg Aspirin (Aspirin 81 Mg Ectab) 81 mg PO QAM [facility] Stop: 02/10/23 08:59 Last Admin: 01/21/23 08:52 Dose: 81 mg Budesonide (Budesonide 0.25 Mg/2 Ml Vial (Pulmicort)) 0.25 mg NEB DAILY [facility] Stop: 02/12/23 08:59 Last Admin: 01/21/23 07:15 Dose: 0.25 mg Calcium Carbonate (Calcium Carbonate 500 Mg Chewable Tab) 1,000 mg PO Q4H PRN PRN Reason: Indigestion Stop: 02/10/23 20:42 Last Admin: 01/12/23 05:45 Dose: 1,000 mg Clopidogrel Bisulfate (Clopidogrel Bisulfate 75 Mg Tab) 75 mg PO QAM GABY Stop: 02/10/23 08:59 Last Admin: 01/21/23 08:52 Dose: 75 mg Dextrose (Dextrose 50% 50 Ml Syringe) 25 - 50 ml IV UD PRN; Protocol PRN Reason: Hypoglycemia Protocol Stop: 02/09/23 22:24 Formoterol Fumarate (Formoterol 20 Mcg/2 Ml Vial) 20 mcg NEB DAILY GABY Stop: 02/12/23 08:59 Last Admin: 01/21/23 07:15 Dose: 20 mcg Glucagon (Glucagon For Inj 1 Mg Vial) 1 mg SQ UD PRN; Protocol PRN Reason: Hypoglycemia Protocol Stop: 02/09/23 22:24 Glucose (Glucose 10 Tab/Tube) 4 - 8 tab PO UD PRN; Protocol PRN Reason: Hypoglycemia Treatment Stop: 02/09/23 22:24 Glucose (Glucose 40% Gel 15 Gm Tube) 15 - 30 gm PO UD PRN; Protocol PRN Reason: Hypoglycemia Protocol Stop: 02/09/23 22:24 Daptomycin 850 mg/ Syringe 17 mls @ 8.5 mls/min IV Q48H GABY; Protocol Stop: 02/04/23 00:00 Last Admin: 01/20/23 23:27 Dose: 8.5 mls/min Insulin Aspart (Insulin Aspart Per Unit Charge) 0 units SC ACHS [facility] Stop: 02/17/23 17:44 Last Admin: 01/21/23 13:04 Dose: 1 units Lactulose (Lactulose Syrup 30 Gm/45 Ml Udp) 30 gm PO TID GABY Stop: 02/19/23 20:59 Last Admin: 01/21/23 13:05 Dose: 30 gm Lidocaine (Lidocaine 5% 1 Patch) 1 patch TD QAM [facility] Stop: 02/18/23 14:59 Last Admin: 01/21/23 08:55 Dose: 1 patch Miscellaneous (Carbohydrates For Hypoglycemia ) 15 - 30 gm PO UD PRN PRN Reason: Hypoglycemia Protocol Stop: 02/09/23 22:24 Miscellaneous (Remove Lidoderm Patch) 1 each N/A DAILY@2100 [facility] Stop: 02/18/23 20:59 Last Admin: 01/20/23 21:36 Dose: 1 each Olanzapine (Olanzapine 10 Mg Tab) 10 mg PO HS [facility] Stop: 02/16/23 20:59 Last Admin: 01/20/23 21:33 Dose: 10 mg Ondansetron HCl (Ondansetron Inj 2 Mg/Ml 2 Ml Vial) 4 mg IV Q6H PRN PRN Reason: Nausea Stop: 02/09/23 22:24 Last Admin: 01/12/23 12:42 Dose: 4 mg Simvastatin (Simvastatin 40 Mg Tab) 40 mg PO HS [facility] Stop: 02/09/23 22:24 Last Admin: 01/18/23 20:30 Dose: 40 mg
--- NOTE | 2023-01-21 17:21 | Hospitalist Progress Note ---
Date of Service January 18, 2023 Assessment & Plan (1) Ambulatory dysfunction: (2) Generalized weakness: (3) ESRD (end stage renal disease) on dialysis: (4) History of thoracic aortic aneurysm repair: (5) Renal cell carcinoma: (6) GERD (gastroesophageal reflux disease): (7) Hypertension: (8) Diabetes mellitus, type 2: (9) CAD (coronary artery disease): (10) Malignant neoplasm of prostate: Plan Mr. Yaron cAosta is a 72 year-old male with coronary artery disease hypertension, diabetes mellitus, CAD, prostate cance and history of aortic dissection (initial endovascular repair at [facility] in 2008) who was recently admitted to [facility] with type B aortic dissection extending form the L subclavian to a prior EVAR. There was significant thrombus involving the endograft extending into the renal arteries. Yaron presented with kidney injury from bilateral renal infarc tion. He underwent bilateral renal artery stenting with EVAR and IVUS on December 23. Unfortunately, he did require hemodialysis for CAROLIAN. Baseline creatinine prior to the admission had been 1.4 mg/dL. HD was started December 20. Yaron has been dialyzing via a RIJ permcath. After an extensive hospitalization, he was discharged home to [facility] in [place]. He was there for 2 days, and the family realized that he needed to have more significant care to get improved, and he has been presented to the ED at [facility] for referral to a rehab facility. On 01/10 the Patient was noted to be in afib and was administered metoprolol. Also his HD was stopped early secondary to patient feeling "miserable and nauseated. He received metoprolol and rhythm turned to sinus rhythm, given history of aortic aneurysm patient underwent CTA of the chest abdomen and pelvis and premedicated when he was at CT scan ~1999 the patient underwent a period of apneic breathing, un-responsive, was very diaphoretic and unarousable , and according to the salt machine operator note patient was coded more than 1 time Cardiorespiratory arrest Patient had an episode of cardiorespiratory arrest on 01/12 CT angio of the chest abdomen and pelvis was ordered to see if his symptoms and signs had anything to do with his recent thoracic aneurysm repair CT angio was negative However soon after the contrast exposure, even though he was being premedicated, he went into cardiorespiratory arrest Unclear if the cardiorespiratory arrest was completely related to the contrast exposure (since he was feeling poorly all day today before) or if he has some issues with disequilibrium with dialysis or if this was related to the bacteremia Improved: off of the vent, off of pressors Monitor clinically CAROLINA Dialysis catheter was removed on 01/18, patient from a kidney standpoint is doing better, does not require dialysis -No indication for dialysis as per my discussion with nephrology, patient can be discharged to rehab with no dialysis chair --Bladder scan tomorrow Her urinalysis on 01/19 shows pyuria but not bacteria Metabolic encephalopathy -Improving, according to the daughter after cardiac arrest his mental status back to normal, most likely his encephalopathy is secondary to sepsis versus medication side effect Currently patient is not confused, however had episode of hallucination, possibly medication side effect GPC bacteremia Staph epidermidis plus Enterococcus faecalis PCR positive Patient is on IV daptomycin. Infectious disease on board The femoral line that was placed on the night of 01/12 after the code has been removed right upper extremity ultrasound ruled out abscess of the antecubital fossa Dialysis catheter was removed today 01/18,A culture was done from the tip of catheter on 01/18 Repeat blood cultures from 01/15 has been negative Patient also has recently placed endograft which is going to be the biggest concern if he is persistently bacteremic despite all the above measures. Echocardiogram on 01/13 did not mention any vegetation -Discussed with ID on 01/19 midline can be placed, patient is a 6 weeks treatment with daptomycin, patient is weekly CMP CBC with differential and CPK -Needs to be followed up with one of the local ID is pending discharge to rehab -Holding statin due to fracture Ambulatory dysfunction/generalized weakness- Status post prolonged stay in recovery from thoracic aneurysm repair patient was recently at [facility] where he had a thoracic aneurysm repair done. The family was under the impression that he was being discharged to a rehab facility but it ended up being [facility]. The patient is too weak and the family is not able to take care of him at [facility] and thus was brought into the emergency room PT/OT on board Case management on board Recent thoracic aneurysm repair CT angio of the chest, abdomen and pelvis was fairly unremarkable Vascular surgery involved. Appreciate their input. Follow-up in 6 months. If persistent bacteremia, may need to pursue the recent endograft as the source. Atrial fibrillation with rapid ventricular response Was seen in consultation by cardiology Currently fairly rate controlled He is at risk of thromboembolic events with an elevated [id number] score. We will hold off on anticoagulation for the time being May need to be started on low-dose Eliquis 2.5 twice daily with his dual antiplatelet therapy when more stable. CAD/hypertension/thoracic aortic aneurysm repair- Continue current medications: aspirin, clopidogrel Continued. Metoprolol, amlodipine held. Diabetes mellitus- Placed on Accu-Cheks with NovoLog SSI Disposition- To rehab possibly within 24 to 48 hours Admission and Anticipated Discharge Date Admission Date: January 10, 2023 Subjective No acute events Afebrile Physical Exam Physical Exam: Patient not seen Constitutional: WD/WN, vitals as above well developed, + ill appearing, + frail appearing and + mechanically ventilated; no acute distress and not in distress Eyes: PERRL, conjunctivae normal, anicteric sclerae no scleral abnormality and no corneal abnormality ENMT: Mallampati Class: III Neck: trachea midline, no thyromegaly normal visual inspection and trachea midline Respiratory: normal respiratory effort, lungs clear to auscultation normal respiratory effort; no respiratory distress Auscultation: lungs clear to auscultation bilaterally Cardiovascular: RRR, no murmur, no edema Rate/Rhythm: regular rate, regular rhythm, + tachycardic and + irregularly irregular Heart Sounds: normal S1 and normal S2 Vessels: normal peripheral pulses Extremities: normal capillary refill; no edema Gastrointestinal (Abdomen): normal bowel sounds, soft, nontender, no hepatosplenomegaly Inspection/Auscultation: abdomen normal to inspection; abdomen not distended Percussion/Palpation: abdomen soft Musculoskeletal: no cyanosis or clubbing, extremities motor strength 5/5 Extremities: no cyanosis and no clubbing Skin: normal turgor and + turgor decreased; no lesions Neurologic: CN's II-XI intact bilaterally and moves all extremities; + not awake Speech / Cognition: normal speech and normal cognition Motor/Sensory: no tremor and no asterixis Psychiatric: Orientation: alert and oriented x 3 Results & Data Results & Data Vital Signs (Past 12 Hours) Vital Signs Temp Pulse Pulse Pulse Resp BP Pulse Ox 01/18/23 16:00 123 H 01/18/23 15:56 37.2 C 113 H 18 135/80 96 01/18/23 13:02 20 91 01/18/23 12:00 114 H 01/18/23 11:20 36.7 C 116 H 20 128/73 97 01/18/23 09:06 36.8 C 112 H 20 127/76 100 01/18/23 08:52 115 H 20 129/77 96 01/18/23 08:47 112 H 20 142/78 H 99 01/18/23 08:45 116 H 20 116/70 98 01/18/23 08:40 110 H 18 131/90 98 01/18/23 08:18 36.9 C 110 H 24 138/80 95 01/18/23 08:00 112 H 01/18/23 08:00 01/18/23 07:23 36.6 C 102 H 20 126/86 95 01/18/23 07:09 110 H 18 92 O2 Del Method O2 Flow Rate 01/18/23 16:00 01/18/23 15:56 Nasal Cannula 01/18/23 13:02 Nasal Cannula 3 01/18/23 12:00 01/18/23 11:20 Nasal Cannula 3 01/18/23 09:06 Nasal Cannula 3 01/18/23 08:52 Nasal Cannula 2 01/18/23 08:47 Oxymask 4 01/18/23 08:45 Oxymask 4 01/18/23 08:40 Oxymask 4 01/18/23 08:18 Nasal Cannula 2 01/18/23 08:00 01/18/23 08:00 Nasal Cannula 3 01/18/23 07:23 Nasal Cannula 1 01/18/23 07:09 Nasal Cannula 1 PG Care Time/CCT Total # of Minutes Spent Total Time Spent with Patient: Total time spent is greater than 50% in coordination of care (as documented) at patient's floor/unit and/or counseling patient: Coding Level of Care Code 17369 SUB INP/OBS CARE 3/50MIN Diagnoses Ambulatory dysfunction R26.2 Generalized weakness R53.1 ESRD (end stage renal disease) on dialysis N18.6; Z99.2 History of thoracic aortic aneurysm repair Z98.890; Z86.79 Renal cell carcinoma C64.9 GERD (gastroesophageal reflux disease) K21.9 Hypertension, unspecified type I10 Hypertension type: unspecified Type 2 diabetes mellitus with other circulatory complication, without long-term current use of insulin E11.59 Diabetes mellitus intermediate designer insulin use: without skilled nursing use Diabetes mellitus complication status: with circulatory complication Diabetes mellitus complication detail: with other circulatory complications Coronary artery disease involving lummi coronary artery of lummi heart without angina pectoris I25.10 Coronary Disease-Associated Artery/Lesion type: lummi artery [place] vs. transplanted heart: lummi heart Associated angina: without angina Malignant neoplasm of prostate C61 (7) Hypertension Hypertension type: unspecified Qualified Code(s): I10 - Essential (primary) hypertension (8) Diabetes mellitus, type 2 Diabetes mellitus skilled nursing insulin use: without intermediate designer use Diabetes mellitus complication status: with circulatory complication Diabetes mellitus complication detail: with other circulatory complications Qualified Code(s): E11.59 - Type 2 diabetes mellitus with other circulatory complications (9) CAD (coronary artery disease) Coronary Disease-Associated Artery/Lesion type: lummi artery [place] vs. transplanted heart: lummi heart Associated angina: without angina Qualified Code(s): I25.10 - Atherosclerotic heart disease of lummi coronary artery without angina pectoris
--- NOTE | 2023-01-21 17:35 | Discharge Summary ---
Date of Service January 21, 2023 Admission HPI Per Admitting Provider The patient is a 72-year-old male with a past medical history including hypertension, diabetes mellitus, CAD, prostate cancer. He had been diagnosed with a aortic tear at a local hospital, and was then sent to [facility] where he had surgical repair. Associated with a tear he ended up having need for hemodialysis due to kidney injury. He had become severely debilitated during this hospital stay, and family felt and [facility] thought they were sending him to a rehab facility, but it ended up being [facility]. He was there for 2 days, and the family realized that he needed to have more significant care to get improved, and he has been presented to the ED at [facility] for referral to a rehab facility. Principal Diagnosis Gram-positive cocci bacteremia Cardiopulmonary arrest Acute kidney injury Metabolic encephalopathy Gram-positive cocci bacteremia Atrial fibrillation with rapid ventricular response Discharge Exam Patient not seen Constitutional WD/WN, vitals as above well developed, + ill appearing, + frail appearing and + mechanically ventilated; no acute distress and not in distress Eyes PERRL, conjunctivae normal, anicteric sclerae no scleral abnormality and no corneal abnormality ENMT external ear and nose normal, oropharynx normal Mouth: + dry oral mucous membranes; no oral mucosal abnormality Mallampati Class: III Neck trachea midline, no thyromegaly normal visual inspection and trachea midline Respiratory normal respiratory effort, lungs clear to auscultation normal respiratory effort; no respiratory distress Auscultation: lungs clear to auscultation bilaterally Cardiovascular RRR, no murmur, no edema Rate/Rhythm: regular rate, regular rhythm, + tachycardic and + irregularly irregular Heart Sounds: normal S1 and normal S2 Vessels: normal peripheral pulses Extremities: normal capillary refill; no edema Gastrointestinal (Abdomen) normal bowel sounds, soft, nontender, no hepatosplenomegaly Inspection/Auscultation: abdomen normal to inspection; abdomen not distended Percussion/Palpation: abdomen soft Musculoskeletal no cyanosis or clubbing, extremities motor strength 5/5 Extremities: no cyanosis and no clubbing Skin normal turgor and + turgor decreased; no lesions Neurologic CN's II-XI intact bilaterally and moves all extremities; + not awake Speech / Cognition: normal speech and normal cognition Motor/Sensory: no tremor and no asterixis Psychiatric Orientation: alert and oriented x 3 Discharge Data Allergies Allergy/AdvReac Type Severity Reaction Status Date / Time Iodinated Contrast Media Allergy Severe Anaphylaxis Verified 01/12/23 20:31 morphine Allergy Intermediate hives Verified 01/10/23 19:12 Penicillins Allergy Intermediate skin Verified 01/10/23 19:12 streaking tetanus toxoid, adsorbed Allergy Intermediate local skin Verified 01/10/23 19:12 irritation meperidine AdvReac Intermediate hallucinations, Verified 01/10/23 19:12 agitation Consultations 01/10/23 19:03 ED Decision to Admit Stat 01/10/23 22:25 Consult Nephrology Routine 01/12/23 15:27 Consult Vascular Surgery Routine 01/12/23 15:29 Consult Cardiology Routine 01/13/23 00:19 Consult Design Printing Machine Set Up Operator Routine 01/14/23 11:59 Consult Infectious Diseases Routine 01/17/23 09:53 Consult Vascular Surgery Routine Procedures Performed Operation Date: 01/18/23 10:20 Actual Procedures p Removal Perm Catheter, Moderate Sedation [id number](Right) - Jero Barrett MD Ordered Studies 01/12/23 15:41 CT angio chest dissec wo/w con Stat 01/12/23 16:14 CT angio abd pelvis wo/w con Stat 01/12/23 21:54 CT head/brain wo con Urgent 01/14/23 16:25 US extremity non-vascular ltd Stat 01/19/23 15:13 CT chest diagnostic wo con Routine Hospital Course (1) Ambulatory dysfunction: (2) Generalized weakness: (3) History of thoracic aortic aneurysm repair: (4) Renal cell carcinoma: (5) GERD (gastroesophageal reflux disease): (6) Hypertension: (7) Diabetes mellitus, type 2: (8) CAD (coronary artery disease): (9) Malignant neoplasm of prostate: Plan Mr. 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 There was significant thrombus involving the endograft extending into the renal arteries. Yaron presented with kidney injury from bilateral renal infarction. He underwent bilateral renal artery stenting with EVAR and IVUS on December 23. Unfortunately, he did require hemodialysis for CAROLINA. Baseline creatinine prior to the admission had been 1.4 mg/dL. HD was started December 20. Yaron has been dialyzing via a RIJ permcath. After an extensive hospitalization, he was discharged home to [facility] in [place]. He was there for 2 days, and the family realized that he needed to have more significant care to get improved, and he has been presented to the ED at [facility] for referral to a rehab facility. On 01/10 the Patient was noted to be in afib and was administe red metoprolol. Also his HD was stopped early secondary to patient feeling "miserable and nauseated. He received metoprolol and rhythm turned to sinus rhythm, given history of aortic aneurysm patient underwent CTA of the chest abdomen and pelvis and premedicated when he was at CT scan the patient underwent a period of apneic breathing, un-responsive, was very diaphoretic and unarousable , and according to the sculpture conservator note patient was coded more than 1 time.During the course of admission patient had persistent bacteremia, with gram-positive cocci consulted with ID, patient discharged on daptomycin for 6 weeks midline was placed Cardiorespiratory arrest Patient had an episode of cardiorespiratory arrest on 01/12 CT angio of the chest abdomen and pelvis was ordered to see if his symptoms and signs had anything to do with his recent thoracic aneurysm repair CT angio was negative However soon after the contrast exposure, even though he was being grey edicated, he went into cardiorespiratory arrest Unclear if the cardiorespiratory arrest was completely related to the contrast exposure (since he was feeling poorly all day today before) or if he has some issues with disequilibrium with dialysis or if this was related to the bacteremia Improved: off of the vent, off of pressors According to his daughter his mental status improved to baseline after cardio pulmonary resuscitation CAR[place] Dialysis catheter was removed on 01/18, patient from a kidney standpoint is doing better, does not require dialysis -No indication for dialysis as per my discussion with nephrology, patient can be discharged to rehab with no dialysis chair Her urinalysis on 01/19 shows pyuria but not bacteria -He needs to have close follow-up with payroll coordinator Metabolic encephalopathy -Improving, according to the daughter after cardiac arrest his mental status back to normal, most likely his encephalopathy is secondary to sepsis versus medication side effect Currently patient is not confused, however had episode of hallucination, possibly medication side effect GPC bacteremia Staph epidermidis plus Enterococcus faecalis PCR positive -Continue daptomycin 850 mg IV q48h, dosed for CrCl<30 (would need dose adjustment to q24h if CrCl improves > 30). Increased dapto dosing to 10 mg/kg for Enterococcus with DAYNA 2 -Would hold simvastatin if possible while on daptomycin, to minimize risk for toxicities. Can restart after stopping daptomycin. -Check weekly CK. Last CK 30 on 01/15/23. Next check scheduled for 01/22/23 -Favor 6 weeks of IV daptomycin to treat for endovascular infection, given multiple blood cultures with Staph epi from 01/12-01/13, and E faecalis in 2/4 bottles on 01/13, and he is high risk for graft infection with recent endograft placement. check weekly CBC with diff, CMP, CK while on daptomycin to monitor for toxicities -Would ideally arrange for follow-up with ID locally. -Pt does not clearly have endograft infection on CT--pt's bacteremia could be related to his HD catheter. However, could consider PO antibiotic suppression for the life of the prosthetic graft following the above IV antibiotic course: could consider doxycycline 100 mg PO BID to cover coag neg Staph. -He was started on daptomycin 01/13 and for 6 weeks and the end date should be 02/24 Ambulatory dysfunction/generalized weakness- Status post prolonged stay in recovery from thoracic aneurysm repair patient was recently at [facility] where he had a thoracic aneurysm repair done. The family was under the impression that he was being discharged to a rehab facility but it ended up being [facility]. The patient is too weak and the family is not able to take care of him at [facility] and thus was brought into the emergency room Recent thoracic aneurysm repair CT angio of the chest, abdomen and pelvis was fairly unremarkable Vascular surgery involved. Follow-up in 6 months. If persistent bacteremia, may need to pursue the recent endograft as the sourc e. Atrial fibrillation with rapid ventricular response Was seen in consultation by cardiology Currently on apixaban He is at risk of thromboembolic events with an elevated [id number] score. CAD/hypertension/thoracic aortic aneurysm repair- Continue current medications: aspirin, clopidogrel Continued. Metoprolol, Diabetes mellitus- Placed on Accu-Cheks with NovoLog SSI Metformin was discontinued due to acute kidney injury -The patient may benefit from low-dose Jardiance when his kidney function becomes stable Disposition- To rehab Home Health Attestation I certify that this patient is under my care and that I, or a physicians animal assistant working with me, had a face to-face encounter that meets the home health zpen-sa-logy encounter requirements with this patient. The encounter with the patient was in whole, or in part, for the following medical condition, which is the primary reason for home health care (list medical condition): I certify that, based on my findings, the following services are medically necessary home health services: My clinical findings support the need for the above services because: Further, I certify that my clinical findings support that this patient is homebound (i.e. absences from home require considerable and taxing effort and are for medical reasons or taoism services or infrequently or of short duration when for other reasons) because: Certification for Home Health Services: Based on the above findings, I certify that this patient is confined to the home and needs intermittent senior living care, physical therapy and/or speech therapy or continues to need occupational therapy. The patient is under my care, and I have initiated the establishment of the plan of care. This patient will be followed by a physician who will periodically review the plan of care. Total Time Total Time Spent Total Time Spent (In Minutes): 45 mins Discharge Plan Discharge Items Patient Disposition: Transfer Care Home Fac Reason For Visit: NSTEMI, GENERAL WEAKNESS Discharge Diagnosis: Cardiopulmonary arrest, metabolic encephalopathy, acute kidney injury, Positive persistent bacteremia, A-fib with RVR Activity: Resume your previous activity Lifting: Gradually increase as tolerated Bathing: No limitations Non-emergency contact: Primary Care Provider and Personal Financial Counselor Call non-emergency contact if: you have any medication questions Follow-up/Referrals: Song Corona DO [Physician] - 01/28/23 Gabriel Thomson [Primary Care Provider] - Hazel Carreon MD [Physician] - 02/04/23 Diet: Heart Healthy and Low Sodium (2gm) Addtl Attending Provider Instructions: The patient is a close follow-up with nephrology in 2 weeks and close follow-up with ID, patient is supposed to complete a 6-week course of treatment with daptomycin, patient supposed to have weekly CMP, CPK and CBC with differential to follow-up with ID/PCP given patient is on daptomycin Pending Studies at Discharge: No Stand-Alone Forms: My [facility] Skilled Items Patient informed of condition?: Yes DNR: No Discharge Level of Care: Skilled Communicable Disease: No Discharge Prognosis: Stable Lines: None Urinary Catheter: No Medications and DC Order Prescriptions: New Eliquis 5 mg Tablet 5 mg PO BID Qty: 50 0RF Continued aspirin [Nora Low Dose Aspirin] 81 mg Tablet,Delayed Release (Dr/Ec) 81 mg PO QAM acetaminophen [Tylenol] 325 mg Tablet 650 mg PO Q6H PRN (Reason: Pain) clopidogrel [Plavix] 75 mg Tablet 75 mg PO QAM polyethylene glycol 3350 [Miralax] 17 gram/dose Powder 17 g PO BID albuterol sulfate 90 mcg/actuation Hfa Aerosol Inhaler 2 puff INHALATION Q6H PRN (Reason: Wheezing) oxycodone 5 mg Tablet 5 mg PO Q4H PRN (Reason: Pain) fluticasone furoate-vilanterol [Breo Ellipta] 100-25 mcg/dose Blister With Device 1 inh INHALATION QAM metoprolol tartrate 100 mg tablet 100 mg PO BID amlodipine 5 mg tablet 5 mg PO QAM Discontinued metformin 500 mg tablet 500 mg PO BIDM simvastatin 40 mg tablet 40 mg PO HS Discharge Orders: Discharge Order (Routine); Ordered 01/21/23 Ordered By: Jarrett Irvin/Other Patient Handouts: Do You Have Diabetes?, Understanding Type 2 Diabetes Admission Data Admit Date/Time: 01/10/23 20:48 Attending Provider: Jarrett Blanc Admit Provider: Romulo Burrell Primary Care Provider: Gabriel Thomson Other Providers: Camilo Peoples; [facility]; Jero Barrett; Romulo Burrell; Song Corona; Camilo Arreaga; Barry Escobar; Hazel Carreon Other Interventions: Discharge Summary Assessment (RN) Last Done: 01/21/23 17:21 Coding Level of Care Code 52691 INP/OBS DISCH >30 MIN Diagnoses Ambulatory dysfunction R26.2 Generalized weakness R53.1 History of thoracic aortic aneurysm repair Z98.890; Z86.79 Renal cell carcinoma C64.9 GERD (gastroesophageal reflux disease) K21.9 Hypertension, unspecified type I10 Hypertension type: unspecified Type 2 diabetes mellitus with other circulatory complication, without long-term current use of insulin E11.59 Diabetes mellitus complication detail: with other circulatory complications Diabetes mellitus complication status: with circulatory complication Diabetes mellitus fdc insulin use: without dog food shredder operator use Coronary artery disease involving [place] coronary artery of [place] heart without angina pectoris I25.10 Associated angina: without angina Coronary Disease-Associated Artery/Lesion type: [place] artery [place] vs. transplanted heart: [place] heart Malignant neoplasm of prostate C61
--- NOTE | 2023-01-23 10:22 | Coding Query ---
Clinically a undetermined PRESENT ON ADMISSION QUERY To promote full compliance with coding requirements relating to pateint care, physician participation is requested in all cases of signals intelligence superintendent uncertainty. Please assist us with the question(s) below: Please place an X within the parenthesis (x). The following diagnosis(es) listed in this patient's medical record require physician assistance to determine if they were present on admission (POA) or not. Please advise for each diagnosis whether it was present on admission, not present on admission, or if it was clinically undetermined. 1.Bacteremia was documented in progress notes and Discharge Summary. . Please check below the appropriate response . Thanks for your help! SAVAGE Hull CCS ( ) Present On Admission ( ) Not Present On Admission ( ) Clinically Undetermined *Definition of the present on admission (POA)-Present on admission is defined as present at the time the order for inpatient admission occurs. Conditions that develop during an outpatient encounter prior to a written order for inpatient admission (including emergency department, observation, or outpatient surgery) are considered present on admission. DENISED
== END 2023-01-21 19:33 | DRG 91 ==
LOC: ED 15:57 → SUATTDRO 20:48 → 2N 20:48 → 1E 01-12 20:51 → 2S 01-15 14:21

== ENCOUNTER 2023-01-22 13:14 | Inpatient (IN) ==
[2023-01-22] MEDS ORDERED: ALBUT/IPRATROP 3MG/0.5MG NEB 3 ML VIAL ONE ×2 (13:22→21:59)
--- NOTE | 2023-01-22 13:28 | Emergency Department Note ---
Impression & Plan Acute respiratory failure with hypoxia and hypercarbia, AMS (altered mental status), Acute UTI ED Provider Note Provider: Triston Milligan MD DATE OF SERVICE: 01/22/2023 CHIEF COMPLAINT: Respiratory failure HISTORY OF PRESENT ILLNESS: Patient is a 72-year-old gentleman significant past medical history including hypertension, CAD, diabetes, prostate cancer, aortic dissection status postsurgical repair at [facility] with resultant kidney injury transiently requiring hemodialysis who was hospitalized here this past week. During that stay he had reaction to IV contrast and suffered a cardiac arrest was briefly intubated. Patient discharged yesterday to [facility] for further care. According to EMS patient has been declining since there overnight and had respiratory distress. Hypoxic on room air and placed on a nonrebreather satting in the 70s. Work of breathing and tachypneic. Patient himself not able to provide any significant meaningful history but does not seem to indicate that he is in pain. Cannot tell me where he is or give any significant details of events. EMS states they placed the patient on BiPAP and sats have improved. Patient again upon arrival is on a nonrebreather for transport from the ambulance into the ER and transition to BiPAP. Looking around and follows some simple commands but not getting a clear history. Patient presents with a PICC and had prior dialysis catheter and lines removed due to bacteremia and some antibiotics. PAST MEDICAL HISTORY: As noted above MEDICATIONS: Reviewed medication list from the facility SOCIAL HISTORY: Since last night has been at [facility] for rehab PHYSICAL EXAM: GENERAL: alert and oriented fatigued in appearance on a nonrebreather Head: normocephalic and atraumatic EYES: No injection, discharge or icterus. NECK: Trachea midline. Supple. ENT: Mucous membranes pink and moist. LUNGS: Airway patent. No retractions. Breath sounds coarse with crackles throughout HEART: Regular rate and rhythm. No chest wall tenderness ABDOMEN: Soft and non-tender, without guarding or rebound. A left-sided abdominal wall hernia small reducible nontender nature is appreciated. SKIN: Acyanotic, warm, dry, without rashes EXTREMITIES: Without swelling, tenderness or deformity with healing of the right inguinal wound from prior vascular access without erythema or swelling. NEUROLOGICAL: No focal deficits. No aphasia. No facial droop or slurred speech. Normal strength and tone in the extremities. Sensation to gross touch normal. Ambulatory. EK bpm sinus rhythm left axis. Some respiratory artifact but no acute ST segment elevation or depression noted. CONTINUOUS CARDIAC MONITORING: was ordered and showed a heart rate of bpm in Patient's laboratory studies and imaging reviewed. Differential includes Reactive airway disease, pneumonia, pneumothorax, COPD, CHF, infections, cardiac ischemia, pulmonary embolism, musculoskeletal, gastrointestinal, as well as other pathologies. IMPRESSION/MEDICAL DECISION MAKING: Patient sounds coarse and with crackles. Transition to BiPAP and satting decently with this. Blood pressure stable and appears to be in sinus rhythm. Patient following some commands but not a good historian. No trauma history. Benign abdomen. Not reporting significant pain. Question if he has some fluid overload. Repeat labs were sent. There is bacteremia repeat culture was sent. Fairly benign abdomen. Doubt acute aortic dissection or rupture of prior graft. 1 view chest x-ray obtained without evidence of pneumothorax or significant pulmonary consolidation consistent with pneumonia. There is no significant effusions and no significant pulmonary edema noted. On Eliquis and lower suspicion for PE. Anaphylaxis to IV dye also precludes contrasted study. VBG returns with a pH of 7.25 and a CO2 of 61. Likely some component of hypercarbic respiratory failure. Again now on BiPAP. Lactate normal. Stable anemia hemoglobin 7.5 today. No leukocytosis with a white count of 9. Creatinine increasing just so slightly at 3.88 today with a slightly elevated BUN today of 77. No anion gap on formal labs or significant hyperkalemia. Transaminitis is improving and troponin is improving from previous. BNP not significantly elevated. Discussed with the hospitalist team and a CT chest without contrast obtained for further evaluation of the lung parenchyma. No significant consolidation noted with some secretions in the trachea and bronchi. Son updated at bedside reports that he and his father just the last few days has been bit more delirious and not quite himself. Procalcitonin is noted to be somewhat elevated 1.7 today but no prior for trending purposes. Has followed recently with infectious disease. Given his decline and return now on BiPAP we will broaden with a dose of cefepime at this time. Given gentle hydration with 500 cc of normal saline with concern for infection and some tenuous blood pressures avoiding additional fluids given his history of [place] to avoid fluid overload. Hospitalist team updated. Urinalysis later returns concerning for possible infection may be nidus of some of his AMS. DIAGNOSIS: Hypoxic and hypercarbic respiratory failure, AMS, hypercarbia, acute UTI DISPOSITION: Hospitalist will evaluate Patient was agreeable with this plan. Critical Care I have personally spent 48 minutes of critical care time in the direct management of this patient. This includes bedside care, interpretation of diagnostic studies, and testing, discussion with consultants, patient, and family members, and other required patient management activities. These 48 minutes is in excess of all separately billable procedures. Past Med/Surg History Medical History (Updated 01/22/23 @ 17:30 by Lucio Caldera MD) Complicated UTI (urinary tract infection) Uremia Acute encephalopathy Benign prostatic hyperplasia with urinary obstruction Elevated PSA Malignant neoplasm of kidney excluding renal pelvis Urethral stricture History of abdominal aortic aneurysm (AAA) s/p repair + stent (2008) CAD (coronary artery disease) stents x 2 (2000) History of kidney cancer left kidney (2014) s/p tumor removal (s/p partial left nephrectomy) BPH (benign prostatic hyperplasia) GERD (gastroesophageal reflux disease) controlled Diabetes mellitus, type 2 diet controlled History of skin cancer face Hx of myocardial infarction 2000 - stents x 2 Hypertension Hyperlipidemia Renal mass, left Surgical History Status post insertion of iliac artery stent (from trauma from endovascular procedure per records) Hx of colonoscopy History of AAA (abdominal aortic aneurysm) repair + stent (2008) Hx of hernia repair Hx of abdominal surgery d/t peritonitis History of appendectomy History of kidney surgery Left partial robotic nephrectomy, hand assisted laparoscopy: 09/24/14: Grade I view, MAC#4, ETT 8 at [facility] Family History Brother Family history of diabetes mellitus Social History Smoking Status: Unknown if ever smoked Tobacco Type: Cigarettes Second Hand Exposure: No; Do You Dip or Chew Tobacco: No; Hx Alcohol Use: No Hx Substance Use: No Preferred Language: Slovak Communication Ability: Effective 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 Beliefs That Will Affect Care: None Current Living Situation: Alone Current Living Situation Comment: single family home Feels Safe at Home: Yes Assistive Devices: Cane Allergies Allergies Allergy/AdvReac Type Severity Reaction Status Date / Time Iodinated Contrast Media Allergy Severe Anaphylaxis Verified 01/22/23 14:52 morphine Allergy Intermediate hives Verified 01/22/23 14:52 Penicillins Allergy Intermediate skin Verified 01/22/23 14:52 streaking tetanus toxoid, adsorbed Allergy Intermediate local skin Verified 01/22/23 14:52 irritation meperidine AdvReac Intermediate hallucinations, Verified 01/22/23 14:52 agitation Home Meds Home Medications Medication Instructions Recorded Confirmed aspirin 81 mg tablet,delayed 81 mg PO QAM 01/18/19 01/22/23 release (Nora Low Dose Aspirin) amlodipine 5 mg tablet 5 mg PO QAM 03/29/22 01/22/23 metoprolol tartrate 100 mg tablet 100 mg PO BID 03/29/22 01/22/23 albuterol sulfate 90 mcg/actuation 2 puff inhalation Q6H PRN Wheezing 01/10/23 01/22/23 aerosol inhaler clopidogrel 75 mg tablet (Plavix) 75 mg PO QAM 01/10/23 01/22/23 fluticasone furoate 100 1 inh inhalation QAM 01/10/23 01/22/23 mcg-vilanterol 25 mcg/dose inhalation powder (Breo Ellipta) oxycodone 5 mg tablet 5 mg PO Q4H PRN Pain 01/10/23 01/22/23 daptomycin 350 mg/50 mL in 0.9 % 850 mg IV Q48H 01/22/23 01/22/23 sodium chloride intravenous piggyback insulin regular human 100 unit/mL 1 sliding scale dose subcut ACHS 01/22/23 01/22/23 injection solution (Humulin R PRN BLOOD SUGAR CONTROL Regular U-100 Insulin) naloxone 4 mg/actuation nasal 4 mg intranasal DIRECTED PRN 01/22/23 01/22/23 spray (Narcan) Opioid Overdose Previous Rx's Medication Instructions Recorded apixaban 5 mg tablet (Eliquis) 5 mg PO BID #50 tabs 01/21/23 Results & Data (ED) Vital Signs Vital Signs - 24 hr 01/22/23 13:17 01/22/23 13:17 01/22/23 13:18 Temperature Temperature Source Pulse Rate 88 Pulse Rate [Apical] Respiratory Rate 30 H Respiratory Effort / Characteristics Labored Labored Respiratory Depth Deep Deep Respiratory Pattern Blood Pressure 113/62 Blood Pressure [Left Arm] Blood Pressure Mean 79 Blood Pressure Mean [Left Arm] Blood Pressure Position [Left Arm] Pulse Oximetry 87 L 84 L Oxygen Delivery Method Non-rebreather CPAP Oxygen Flow Rate 10 Fraction of Inspired Oxygen Sepsis Recent Fever Within 48 Hours No Sepsis New/Unexplained Change in Mental Status Yes Sepsis Action Taken by Nursing Physician Notified Pulse Oximetry Post Tiitration 94 01/22/23 13:20 01/22/23 13:30 01/22/23 13:40 Temperature 37.0 C Temperature Source Axillary Pulse Rate 74 75 Pulse Rate [Apical] 78 Respiratory Rate 32 H 20 Respiratory Effort / Characteristics Spontaneous Labored Respiratory Depth Respiratory Pattern Tachypnea Blood Pressure Blood Pressure [Left Arm] Blood Pressure Mean Blood Pressure Mean [Left Arm] Blood Pressure Position [Left Arm] Pulse Oximetry 92 98 Oxygen Delivery Method BiPAP BiPAP Oxygen Flow Rate Fraction of Inspired Oxygen 50 Sepsis Recent Fever Within 48 Hours Sepsis New/Unexplained Change in Mental Status Sepsis Action Taken by Nursing Pulse Oximetry Post Tiitration 01/22/23 13:43 01/22/23 13:45 01/22/23 13:45 Temperature Temperature Source Pulse Rate 80 79 Pulse Rate [Apical] Respiratory Rate 25 H 24 Respiratory Effort / Characteristics Respiratory Depth Respiratory Pattern Blood Pressure 84/65 L 99/53 L Blood Pressure [Left Arm] Blood Pressure Mean 71 63 Blood Pressure Mean [Left Arm] Blood Pressure Position [Left Arm] Pulse Oximetry Oxygen Delivery Method Oxygen Flow Rate Fraction of Inspired Oxygen Sepsis Recent Fever Within 48 Hours Sepsis New/Unexplained Change in Mental Status Sepsis Action Taken by Nursing Pulse Oximetry Post Tiitration 01/22/23 14:01 01/22/23 14:02 01/22/23 14:02 Temperature Temperature Source Pulse Rate 81 91 H Pulse Rate [Apical] Respiratory Rate 41 H 22 Respiratory Effort / Characteristics Respiratory Depth Respiratory Pattern Blood Pressure 93/65 L Blood Pressure [Left Arm] Blood Pressure Mean 69 Blood Pressure Mean [Left Arm] Blood Pressure Position [Left Arm] Pulse Oximetry Oxygen Delivery Method Oxygen Flow Rate Fraction of Inspired Oxygen Sepsis Recent Fever Within 48 Hours Sepsis New/Unexplained Change in Mental Status Sepsis Action Taken by Nursing Pulse Oximetry Post Tiitration 01/22/23 14:10 01/22/23 14:20 01/22/23 14:29 Temperature Temperature Source Pulse Rate 115 H 79 Pulse Rate [Apical] 84 Respiratory Rate 24 26 H 18 Respiratory Effort / Characteristics Respiratory Depth Normal Respiratory Pattern Blood Pressure Blood Pressure [Left Arm] 91/61 L Blood Pressure Mean Blood Pressure Mean [Left Arm] 71 Blood Pressure Position [Left Arm] Lying Pulse Oximetry 99 98 Oxygen Delivery Method CPAP Oxygen Flow Rate Fraction of Inspired Oxygen Sepsis Recent Fever Within 48 Hours Sepsis New/Unexplained Change in Mental Status Sepsis Action Taken by Nursing Pulse Oximetry Post Tiitration 01/22/23 14:38 01/22/23 15:00 01/22/23 15:15 Temperature Temperature Source Pulse Rate Pulse Rate [Apical] 83 82 90 Respiratory Rate 22 Respiratory Effort / Characteristics Respiratory Depth Normal Respiratory Pattern Blood Pressure Blood Pressure [Left Arm] 94/64 L 112/65 96/57 L Blood Pressure Mean Blood Pressure Mean [Left Arm] 74 80 70 Blood Pressure Position [Left Arm] Pulse Oximetry 98 97 95 Oxygen Delivery Method CPAP CPAP CPAP Oxygen Flow Rate Fraction of Inspired Oxygen Sepsis Recent Fever Within 48 Hours Sepsis New/Unexplained Change in Mental Status Sepsis Action Taken by Nursing Pulse Oximetry Post Tiitration 01/22/23 15:30 01/22/23 15:34 01/22/23 15:45 Temperature Temperature Source Pulse Rate 92 H Pulse Rate [Apical] 92 H 102 H Respiratory Rate 32 H Respiratory Effort / Characteristics Spontaneous Labored Respiratory Depth Respiratory Pattern Tachypnea Blood Pressure Blood Pressure [Left Arm] 97/59 L 108/47 L Blood Pressure Mean Blood Pressure Mean [Left Arm] 71 67 Blood Pressure Position [Left Arm] Pulse Oximetry 98 99 97 Oxygen Delivery Method CPAP CPAP Oxygen Flow Rate Fraction of Inspired Oxygen 50 Sepsis Recent Fever Within 48 Hours Sepsis New/Unexplained Change in Mental Status Sepsis Action Taken by Nursing Pulse Oximetry Post Tiitration 01/22/23 16:00 01/22/23 16:15 01/22/23 16:30 Temperature Temperature Source Pulse Rate Pulse Rate [Apical] 108 H 122 H 85 Respiratory Rate Respiratory Effort / Characteristics Respiratory Depth Respiratory Pattern Blood Pressure Blood Pressure [Left Arm] 102/49 L 104/57 L 106/53 L Blood Pressure Mean Blood Pressure Mean [Left Arm] 66 72 70 Blood Pressure Position [Left Arm] Pulse Oximetry 99 97 98 Oxygen Delivery Method CPAP Non-rebreather CPAP Oxygen Flow Rate Fraction of Inspired Oxygen Sepsis Recent Fever Within 48 Hours Sepsis New/Unexplained Change in Mental Status Sepsis Action Taken by Nursing Pulse Oximetry Post Tiitration 01/22/23 16:45 01/22/23 17:00 01/22/23 17:21 Temperature Temperature Source Pulse Rate 87 Pulse Rate [Apical] 90 139 H Respiratory Rate Respiratory Effort / Characteristics Respiratory Depth Respiratory Pattern Blood Pressure Blood Pressure [Left Arm] 107/68 104/60 Blood Pressure Mean Blood Pressure Mean [Left Arm] 81 74 Blood Pressure Position [Left Arm] Pulse Oximetry 90 96 Oxygen Delivery Method BiPAP BiPAP Oxygen Flow Rate Fraction of Inspired Oxygen Sepsis Recent Fever Within 48 Hours Sepsis New/Unexplained Change in Mental Status Sepsis Action Taken by Nursing Pulse Oximetry Post Tiitration 01/22/23 17:30 Temperature Temperature Source Pulse Rate Pulse Rate [Apical] 87 Respiratory Rate Respiratory Effort / Characteristics Respiratory Depth Respiratory Pattern Blood Pressure Blood Pressure [Left Arm] 124/51 L Blood Pressure Mean Blood Pressure Mean [Left Arm] 75 Blood Pressure Position [Left Arm] Pulse Oximetry 98 Oxygen Delivery Method BiPAP Oxygen Flow Rate Fraction of Inspired Oxygen Sepsis Recent Fever Within 48 Hours Sepsis New/Unexplained Change in Mental Status Sepsis Action Taken by Nursing Pulse Oximetry Post Tiitration Laboratory Data 01/22/23 17:11 01/22/23 17:11 Lab Results 01/22/23 01/22/23 01/22/23 Range/Units 13:20 13:30 15:15 WBC 9.05 (4.8-10.8) K/ul RBC 2.56 L (4.70-6.10) M/uL Hgb 7.5 L (14.0-18.0) g/dl POC Hgb 7.5 L (14.0-18.0) g/dl Hct 24.9 L (42.0-52.0) % POC Hct 22 L (42-52) % MCV 97.3 (80.0-100.0) fL MCH 29.3 (25.0-34.0) pg MCHC 30.1 L (32.0-36.0) g/dL RDW Std Deviation 50.0 H (36.4-46.3) fL RDW Coeff of Gennaro 14.2 (11.5-14.5) % Plt Count 351 (130-400) K/uL MPV 10.3 (9.4-12.4) fL Immature Gran % (Auto) 0.6 % Neut % (Auto) 76.6 % Lymph % (Auto) 13.5 % [place] % (Auto) 7.0 % Eos % (Auto) 2.0 % Baso % (Auto) 0.3 % Neut # (Auto) 6.94 H (1.40-6.50) K/uL Lymph # (Auto) 1.22 (1.20-3.40) K/uL [place] # (Auto) 0.63 H (0.11-0.59) K/uL Eos # (Auto) 0.18 (0.00-0.50) K/uL Baso # (Auto) 0.03 (0.00-0.20) K/uL Immature Gran # (Auto) 0.05 (0.01-0.20) K/uL Polychromasia 1+ Basophilic Stippling 1+ Anisocytosis PT 12.7 H (9.0-12.0) Seconds INR 1.2 H (0.9-1.1) APTT 31.4 H (21.0-31.0) Seconds PTT Ratio 1.1 POC pH (7.35-7.45) POC pCO2 (35-46) mmHg POC pO2 (80-95) mmHg POC HCO3 (19-24) vince/L POC Base Excess (-9-1.8) vince/L POC ABG O2 Sat (90-95) % VBG pH 7.25 L (7.36-7.41) VBG pCO2 61 H (38-50) mmHg VBG pO2 40 mmHg VBG HCO3 27 mmol/L VBG O2 Saturation 64.4 % VBG Base Excess -1.7 mEq/L POC Sodium 144 (135-144) mmol/L Sodium 144 (136-145) mmol/L POC Potassium 4.9 (3.3-5.0) mmol/L Potassium 4.9 (3.5-5.1) mmol/L POC Chloride 108 (101-112) mmol/L Chloride 106 (98-107) mmol/L Carbon Dioxide 29 (21-32) mmol/L POC Total CO2 28 (24-31) mmol/L Anion Gap 9 (3-11) POC Anion Gap 14.0 L (16-25) mmol/L POC BUN 85 H (7-18) mg/dl BUN 77 H (6-23) mg/dl Creatinine 3.88 H D (0.6-1.4) mg/dl POC Creatinine 4.0 H (0.6-1.3) mg/dl Est Cr Clr Drug Dosing 17.0 ml/min Est GFR ( Amer) 16.7 ml/min Est GFR (Non-Af Amer) 14.4 ml/min BUN/Creatinine Ratio 19.8 (10-20) Glucose 140 H (70-99(Fasting)) mg/dl POC Glucose (other) 143 H (70-99) mg/dl Lactate 0.8 (0.4-2.0) mmol/L Calcium 9.4 (8.6-10.3) mg/dl POC Ioniz Calcium Carin 1.22 (1.12-1.32) mmol/l Magnesium 2.5 H (1.7-2.4) mg/dl Total Bilirubin 0.5 (0.2-1.0) mg/dl AST 46 H (13-39) U/L ALT 60 H (7-52) U/L Alkaline Phosphatase 189 H (34-104) U/L Ammonia (18-72) umol/L Total Creatine Kinase 31 (30-223) U/L Troponin I High Sens 27.5 H (0-20) pg/ml B-Natriuretic Peptide 76 (0-100) pg/ml Total Protein 7.5 (6.0-8.3) gm/dl Albumin 3.1 L (3.4-5.0) gm/dl Globulin 4.4 H (2.5-4.0) gm/dl Albumin/Globulin Ratio 0.7 L (0.9-2) Procalcitonin 1.75 H (0-0.5) ng/ml TSH (0.300-4.500) uIu/ml Urine Color Yellow Urine Appearance Turbid A (Clear) Urine pH 7.0 (4.5-7.5) Ur Specific [place] 1.012 (1.000-1.030) Urine Protein 1+ H (Negative) Urine Glucose (UA) Negative (Negative) Urine Ketones Negative (Negative) Urine Blood 3+ H (Negative) Urine Nitrite Negative (Negative) Urine Bilirubin Negative (Negative) Urine Urobilinogen Negative (Negative) Ur Leukocyte Esterase 2+ H (Negative) Urine WBC (Auto) >30 H (0-5) /hpf Urine RBC (Auto) 5-10 H (0-4) /hpf U Hyaline Cast (Auto) 0 (0-5) /lpf U Epithel Cells (Auto) 5-10 H (0-5) /lpf Urine Bacteria (Auto) 3+ H (Negative) Adenovirus (PCR) Not Detected (NotDetected) B. pertussis DNA (PCR) Not Detected (NotDetected) B.parapertussis DNA PCR Not Detected (NotDetected) C. pneumoniae DNA (PCR) Not Detected (NotDetected) Coronavirus OC43 (PCR) Not Detected (NotDetected) Coronavirus HKU1 (PCR) Not Detected (NotDetected) Coronavirus 229E (PCR) Not Detected (NotDetected) SARS-CoV-2 (PCR) Not Detected (NotDetected) Coronavirus NL63 (PCR) Not Detected (NotDetected) Human Metapneumovir PCR Not Detected (NotDetected) Influenza Type A (PCR) Not Detected (NotDetected) Influenza Type B (PCR) Not Detected (NotDetected) M. pneumoniae (PCR) Not Detected (NotDetected) Parainfluenza 1 (PCR) Not Detected (NotDetected) Parainfluenza 2 (PCR) Not Detected (NotDetected) Parainfluenza 3 (PCR) Not Detected (NotDetected) Parainfluenza 4 (PCR) Not Detected (NotDetected) RSV (PCR) Not Detected (NotDetected) Entero/Rhino (PCR) Not Detected (NotDetected) 01/22/23 01/22/23 01/22/23 Range/Units 15:16 15:59 17:11 WBC 8.16 (4.8-10.8) K/ul RBC 2.20 L (4.70-6.10) M/uL Hgb 6.5 L* (14.0-18.0) g/dl POC Hgb (14.0-18.0) g/dl Hct 21.1 L (42.0-52.0) % POC Hct (42-52) % MCV 95.9 (80.0-100.0) fL MCH 29.5 (25.0-34.0) pg MCHC 30.8 L (32.0-36.0) g/dL RDW Std Deviation 49.4 H (36.4-46.3) fL RDW Coeff of Gennaro 14.3 (11.5-14.5) % Plt Count 295 (130-400) K/uL MPV 10.3 (9.4-12.4) fL Immature Gran % (Auto) 0.6 % Neut % (Auto) 77.3 % Lymph % (Auto) 12.9 % [place] % (Auto) 7.0 % Eos % (Auto) 2.1 % Baso % (Auto) 0.1 % Neut # (Auto) 6.31 (1.40-6.50) K/uL Lymph # (Auto) 1.05 L (1.20-3.40) K/uL [place] # (Auto) 0.57 (0.11-0.59) K/uL Eos # (Auto) 0.17 (0.00-0.50) K/uL Baso # (Auto) 0.01 (0.00-0.20) K/uL Immature Gran # (Auto) 0.05 (0.01-0.20) K/uL Polychromasia Basophilic Stippling 1+ Anisocytosis Present PT (9.0-12.0) Seconds INR (0.9-1.1) APTT (21.0-31.0) Seconds PTT Ratio POC pH (7.35-7.45) POC pCO2 (35-46) mmHg POC pO2 (80-95) mmHg POC HCO3 (19-24) vince/L POC Base Excess (-9-1.8) vince/L POC ABG O2 Sat (90-95) % VBG pH 7.23 L (7.36-7.41) VBG pCO2 63 H (38-50) mmHg VBG pO2 39 mmHg VBG HCO3 26 mmol/L VBG O2 Saturation 64.5 % VBG Base Excess -2.4 mEq/L POC Sodium (135-144) mmol/L Sodium 144 (136-145) mmol/L POC Potassium (3.3-5.0) mmol/L Potassium 5.0 (3.5-5.1) mmol/L POC Chloride (101-112) mmol/L Chloride 109 H (98-107) mmol/L Carbon Dioxide 27 (21-32) mmol/L POC Total CO2 (24-31) mmol/L Anion Gap 8 (3-11) POC Anion Gap (16-25) mmol/L POC BUN (7-18) mg/dl BUN 78 H (6-23) mg/dl Creatinine 3.61 H (0.6-1.4) mg/dl POC Creatinine (0.6-1.3) mg/dl Est Cr Clr Drug Dosing 18.2 ml/min Est GFR ( Amer) 18.2 ml/min Est GFR (Non-Af Amer) 15.7 ml/min BUN/Creatinine Ratio 21.6 H (10-20) Glucose 128 H (70-99(Fasting)) mg/dl POC Glucose (other) (70-99) mg/dl Lactate (0.4-2.0) mmol/L Calcium 8.8 (8.6-10.3) mg/dl POC Ioniz Calcium Carin (1.12-1.32) mmol/l Magnesium (1.7-2.4) mg/dl Total Bilirubin (0.2-1.0) mg/dl AST (13-39) U/L ALT (7-52) U/L Alkaline Phosphatase (34-104) U/L Ammonia 32.0 (18-72) umol/L Total Creatine Kinase (30-223) U/L Troponin I High Sens 27.5 H (0-20) pg/ml B-Natriuretic Peptide (0-100) pg/ml Total Protein (6.0-8.3) gm/dl Albumin (3.4-5.0) gm/dl Globulin (2.5-4.0) gm/dl Albumin/Globulin Ratio (0.9-2) Procalcitonin (0-0.5) ng/ml TSH 0.437 (0.300-4.500) uIu/ml Urine Color Urine Appearance (Clear) Urine pH (4.5-7.5) Ur Specific [place] (1.000-1.030) Urine Protein (Negative) Urine Glucose (UA) (Negative) Urine Ketones (Negative) Urine Blood (Negative) Urine Nitrite (Negative) Urine Bilirubin (Negative) Urine Urobilinogen (Negative) Ur Leukocyte Esterase (Negative) Urine WBC (Auto) (0-5) /hpf Urine RBC (Auto) (0-4) /hpf U Hyaline Cast (Auto) (0-5) /lpf U Epithel Cells (Auto) (0-5) /lpf Urine Bacteria (Auto) (Negative) Adenovirus (PCR) (NotDetected) B. pertussis DNA (PCR) (NotDetected) B.parapertussis DNA PCR (NotDetected) C. pneumoniae DNA (PCR) (NotDetected) Coronavirus OC43 (PCR) (NotDetected) Coronavirus HKU1 (PCR) (NotDetected) Coronavirus 229E (PCR) (NotDetected) SARS-CoV-2 (PCR) (NotDetected) Coronavirus NL63 (PCR) (NotDetected) Human Metapneumovir PCR (NotDetected) Influenza Type A (PCR) (NotDetected) Influenza Type B (PCR) (NotDetected) M. pneumoniae (PCR) (NotDetected) Parainfluenza 1 (PCR) (NotDetected) Parainfluenza 2 (PCR) (NotDetected) Parainfluenza 3 (PCR) (NotDetected) Parainfluenza 4 (PCR) (NotDetected) RSV (PCR) (NotDetected) Entero/Rhino (PCR) (NotDetected) 01/22/23 Range/Units 17:14 WBC (4.8-10.8) K/ul RBC (4.70-6.10) M/uL Hgb (14.0-18.0) g/dl POC Hgb 6.5 L* (14.0-18.0) g/dl Hct (42.0-52.0) % POC Hct 19 L* (42-52) % MCV (80.0-100.0) fL MCH (25.0-34.0) pg MCHC (32.0-36.0) g/dL RDW Std Deviation (36.4-46.3) fL RDW Coeff of Gennaro (11.5-14.5) % Plt Count (130-400) K/uL MPV (9.4-12.4) fL Immature Gran % (Auto) % Neut % (Auto) % Lymph % (Auto) % [place] % (Auto) % Eos % (Auto) % Baso % (Auto) % Neut # (Auto) (1.40-6.50) K/uL Lymph # (Auto) (1.20-3.40) K/uL [place] # (Auto) (0.11-0.59) K/uL Eos # (Auto) (0.00-0.50) K/uL Baso # (Auto) (0.00-0.20) K/uL Immature Gran # (Auto) (0.01-0.20) K/uL Polychromasia Basophilic Stippling Anisocytosis PT (9.0-12.0) Seconds INR (0.9-1.1) APTT (21.0-31.0) Seconds PTT Ratio POC pH 7.26 L (7.35-7.45) POC pCO2 63 H (35-46) mmHg POC pO2 126 H (80-95) mmHg POC HCO3 28 H (19-24) vince/L POC Base Excess 1.0 (-9-1.8) vince/L POC ABG O2 Sat 98.0 H (90-95) % VBG pH (7.36-7.41) VBG pCO2 (38-50) mmHg VBG pO2 mmHg VBG HCO3 mmol/L VBG O2 Saturation % VBG Base Excess mEq/L POC Sodium 144 (135-144) mmol/L Sodium (136-145) mmol/L POC Potassium 5.1 H (3.3-5.0) mmol/L Potassium (3.5-5.1) mmol/L POC Chloride (101-112) mmol/L Chloride (98-107) mmol/L Carbon Dioxide (21-32) mmol/L POC Total CO2 30 (24-31) mmol/L Anion Gap (3-11) POC Anion Gap (16-25) mmol/L POC BUN (7-18) mg/dl BUN (6-23) mg/dl Creatinine (0.6-1.4) mg/dl POC Creatinine (0.6-1.3) mg/dl Est Cr Clr Drug Dosing ml/min Est GFR ( Amer) ml/min Est GFR (Non-Af Amer) ml/min BUN/Creatinine Ratio (10-20) Glucose (70-99(Fasting)) mg/dl POC Glucose (other) (70-99) mg/dl Lactate (0.4-2.0) mmol/L Calcium (8.6-10.3) mg/dl POC Ioniz Calcium Carin (1.12-1.32) mmol/l Magnesium (1.7-2.4) mg/dl Total Bilirubin (0.2-1.0) mg/dl AST (13-39) U/L ALT (7-52) U/L Alkaline Phosphatase (34-104) U/L Ammonia (18-72) umol/L Total Creatine Kinase (30-223) U/L Troponin I High Sens (0-20) pg/ml B-Natriuretic Peptide (0-100) pg/ml Total Protein (6.0-8.3) gm/dl Albumin (3.4-5.0) gm/dl Globulin (2.5-4.0) gm/dl Albumin/Globulin Ratio (0.9-2) Procalcitonin (0-0.5) ng/ml TSH (0.300-4.500) uIu/ml Urine Color Urine Appearance (Clear) Urine pH (4.5-7.5) Ur Specific [place] (1.000-1.030) Urine Protein (Negative) Urine Glucose (UA) (Negative) Urine Ketones (Negative) Urine Blood (Negative) Urine Nitrite (Negative) Urine Bilirubin (Negative) Urine Urobilinogen (Negative) Ur Leukocyte Esterase (Negative) Urine WBC (Auto) (0-5) /hpf Urine RBC (Auto) (0-4) /hpf U Hyaline Cast (Auto) (0-5) /lpf U Epithel Cells (Auto) (0-5) /lpf Urine Bacteria (Auto) (Negative) Adenovirus (PCR) (NotDetected) B. pertussis DNA (PCR) (NotDetected) B.parapertussis DNA PCR (NotDetected) C. pneumoniae DNA (PCR) (NotDetected) Coronavirus OC43 (PCR) (NotDetected) Coronavirus HKU1 (PCR) (NotDetected) Coronavirus 229E (PCR) (NotDetected) SARS-CoV-2 (PCR) (NotDetected) Coronavirus NL63 (PCR) (NotDetected) Human Metapneumovir PCR (NotDetected) Influenza Type A (PCR) (NotDetected) Influenza Type B (PCR) (NotDetected) M. pneumoniae (PCR) (NotDetected) Parainfluenza 1 (PCR) (NotDetected) Parainfluenza 2 (PCR) (NotDetected) Parainfluenza 3 (PCR) (NotDetected) Parainfluenza 4 (PCR) (NotDetected) RSV (PCR) (NotDetected) Entero/Rhino (PCR) (NotDetected) Administered Medications Vancomycin HCl 1,750 mg/ (Sodium Chloride) 535 mls @ 200 mls/hr IV NOW STA Stop: 01/22/23 18:21 Last Admin: 01/22/23 16:34 Dose: 200 mls/hr Documented By: ELSY Discontinued Medications Albuterol (Albut/Ipratrop 3mg/0.5mg Neb 3 Ml Vial) Confirm Administered Dose 3 ml .ROUTE .STK-MED ONE Stop: 01/22/23 13:23 Last Admin: 01/22/23 14:02 Dose: Not Given Documented By: IZABEL Cefepime HCl (Maxipime) 2,000 mg in 20 mls @ 5 mls/min IV NOW STA; Protocol Stop: 01/22/23 14:50 Last Admin: 01/22/23 15:05 Dose: 5 mls/min Documented By: ELSY Sodium Chloride (Nss) 500 mls @ 999 mls/hr IV .Q31M ONE Stop: 01/22/23 15:17 Last Infusion: 01/22/23 16:00 Dose: Infused Documented By: Admin: 01/22/23 15:22 Dose: 999 mls/hr Documented By: ELSY Lactated Ringer's (Lr) 1,000 mls @ 999 mls/hr IV .Q1H1M ONE Stop: 01/22/23 16:48 Last Infusion: 01/22/23 17:35 Dose: Infused Documented By: Admin: 01/22/23 15:59 Dose: 999 mls/hr Documented By: ELSY Imaging Data Radiologist's Impression: Chest X-Ray 01/22/23 13:13 XR chest 1V portable CLINICAL HISTORY: Dyspnea. COMPARISON STUDY: Chest CT January 19, 2023. Chest radiograph January 20, 2023. FINDINGS: Endovascular thoracic aortic stent graft and right PICC are in place. There is no pneumothorax or pleural effusion. No consolidation is identified. There is no evidence for pulmonary edema. The cardiomediastinal silhouette is stable. IMPRESSION: No acute cardiopulmonary findings. No change in appearance of the chest. ACT 112: Negative or not required by law. Electronically signed by: Peterson Hart M.D. 01/22/2023 1:[address] 01/22/23 13:44 CT OF THE CHEST WITHOUT IV CONTRAST CLINICAL HISTORY: Shortness of breath. Respiratory failure. COMPARISON STUDY: Chest CTs January 12, 2023 and January 19, 2023. Chest radiograph performed earlier today. CT DOSE: 1087.62 mGy.cm TECHNIQUE: Axial images of the chest were obtained without IV contrast. Images were reviewed in the axial, sagittal, and coronal planes. IV contrast was not administered for this examination. Automated exposure control was utilized for the study. A dose lowering technique was utilized adhering to the principles of ALARA. FINDINGS: Thoracic aortic endovascular stent graft is in place. Aneurysmal dilatation of the descending thoracic aorta is stable to slightly increased since prior exam, measuring 5.1 cm. Size of the heart is normal. There is no pericardial effusion. Left pleural effusion has decreased in size since prior exam. Emphysema is present. There is no consolidation to suggest pneumonia. Subpleural opacities reflect atelectasis. Abdominal aortic stent graft is partially imaged. The appearance of the visualized portions of the abdominal aorta is unchanged. A 2 mm calculus within the upper pole of the left kidney is incidentally noted. There are moderate secretions within the trachea and mainstem bronchi. IMPRESSION: 1. No consolidation to suggest pneumonia. 2. Emphysema. 3. Moderate secretions within the trachea and mainstem bronchi. 4. Thoracic aortic endovascular stent graft in place. Aneurysmal dilatation of the descending thoracic aorta is stable to slightly increased since prior CT measuring 5.1 cm. This is suboptimally assessed on this unenhanced exam. ACT 112: Negative or not required by law. Electronically signed by: Peterson Hart M.D. 01/22/2023 2:[address] 01/22/23 15:53 CT OF THE HEAD WITHOUT CONTRAST CLINICAL HISTORY: acute lethargy, AMS COMPARISON STUDY: Head CT January 12, 2023. CT DOSE: 1100.35 mGy.cm TECHNIQUE: Helical axial images of the head were obtained without IV contrast. Automated exposure control was utilized for the study. A dose lowering technique was utilized adhering to the principles of ALARA. FINDINGS: No acute intracranial hemorrhage, midline shift or mass effect is present. The ventricular system is stable. White matter hypodensities are unchanged and favor small vessel disease. The basal cisterns are patent. No extra-axial collections are present. There are no findings to suggest acute dural sinus thrombosis or acute territorial infarct. No significant calvarial abnormalities are present. Visualized portions of the sinuses and mastoid air cells are clear. IMPRESSION: No acute intracranial findings. No change in appearance of the brain. ACT 112: Negative or not required by law. Electronically signed by: Peterson Hart M.D. 01/22/2023 4:31 PM Discharge Plan Visit Data Chief Complaint: Respiratory Distress Stated Complaint: RESPIRATORY FAILURE ED Provider: Triston Milligan Discharge Problem: Acute respiratory failure with hypoxia and hypercarbia, AMS (altered mental status), Acute UTI Patient Disposition: Being Evaluated by Hospitalist Discharge Instructions Interventions: ED Discharge Assessment Last Done: 01/22/23 18:09 Forms Stand Alone Forms: [facility] [place] Prescriptions Prescriptions: No Action aspirin [Nora Low Dose Aspirin] 81 mg Tablet,Delayed Release (Dr/Ec) 81 mg PO QAM clopidogrel [Plavix] 75 mg Tablet 75 mg PO QAM albuterol sulfate 90 mcg/actuation Hfa Aerosol Inhaler 2 puff INHALATION Q6H PRN (Reason: Wheezing) oxycodone 5 mg Tablet 5 mg PO Q4H PRN (Reason: Pain) fluticasone furoate-vilanterol [Breo Ellipta] 100-25 mcg/dose Blister With Device 1 inh INHALATION QAM Eliquis 5 mg Tablet 5 mg PO BID Qty: 50 0RF metoprolol tartrate 100 mg tablet 100 mg PO BID amlodipine 5 mg tablet 5 mg PO QAM Humulin R Regular U-100 Insuln 100 unit/mL Solution 1 sliding scale dose SUBCUT ACHS PRN (Reason: BLOOD SUGAR CONTROL) Rx Instructions: BSG <70=HYPOGLYCEMIA PROTOCOL, BSG 70-130=0 UNITS, 131-180=2 UNITS, 181-240=4 UNITS, 241-300=6 UNITS, 301-350=8 UNITS, 351-400=10 UNITS, >400=12 UNITS. naloxone [Narcan] 4 mg/actuation [place],Non-Aerosol 4 mg INTRANASAL DIRECTED PRN (Reason: Opioid Overdose) daptomycin in 0.9 % sod chlor 350 mg/50 mL Piggyback 850 mg IV Q48H Rx Instructions: START 01/22/23 WITH 2100 DOSE, ENDS 03/03/23. administer over 30 mins Referrals Referrals: Gabriel Thomson [Primary Care Provider] - Discharge Problem: AMS (altered mental status) Qualifiers: Altered mental status type: disorientation Qualified Code(s): R41.0 - Disorientation, unspecified
--- NOTE | 2023-01-22 13:35 | XRay Report ---
XR chest 1V portable CLINICAL HISTORY: Dyspnea. COMPARISON STUDY: Chest CT January 19, 2023. Chest radiograph January 20, 2023. FINDINGS: Endovascular thoracic aortic stent graft and right PICC are in place. There is no pneumotho rax or pleural effusion. No consolidation is identified. There is no evidence for pulmonary edema. Th e cardiomediastinal silhouette is stable. IMPRESSION: No acute cardiopulmonary findings. No change in appearance of the chest. ACT 112: Negative or not required by law. Electronically signed by: Peterson Hart M.D. 01/22/2023 1:33 PM
[2023-01-22 13:40] LABS: Base Excess VBG -1.7 mEq/L; HCO3 VBG 27 mmol/L; Oxygen Saturation VBG 64.4 %; PCO2 VBG 61 mmHg (38-50); PO2 VBG 40 mmHg; pH VBG 7.25 (7.36-7.41)
[2023-01-22 13:44] LABS: iSTAT Hemoglobin 7.5 g/dl (14.0-18.0); iSTAT Ionized Calcium 1.22 mmol/l (1.12-1.32); iSTAT Potassium 4.9 mmol/L (3.3-5.0)
[2023-01-22 13:49] LABS: Basophils # (auto) 0.03 K/uL (0.00-0.20); Basophils % (auto) 0.3 %; Eosinophils # (auto) 0.18 K/uL (0.00-0.50); Hematocrit (blood only) 24.9 % (42.0-52.0); Hemoglobin 7.5 g/dl (14.0-18.0); Immature Granulocytes # (auto) 0.05 K/uL (0.01-0.20); Immature Granulocytes % (auto) 0.6 %; Lymphocytes # (auto) 1.22 K/uL (1.20-3.40); Lymphocytes % (auto) 13.5 %; Mean Corpuscular Hemoglobin 29.3 pg (25.0-34.0); Mean Corpuscular Hgb Conc 30.1 g/dL (32.0-36.0); Mean Corpuscular Volume 97.3 fL (80.0-100.0); Mean Platelet Volume 10.3 fL (9.4-12.4); Monocytes # (auto) 0.63 K/uL (0.11-0.59); Neutrophils # (auto) 6.94 K/uL (1.40-6.50); Neutrophils % (auto) 76.6 %; Platelet Count 351 K/uL (130-400); RDW Coefficient of Variation 14.2 % (11.5-14.5); Red Blood Count 2.56 M/uL (4.70-6.10); White Blood Count 9.05 K/ul (4.8-10.8)
[2023-01-22 14:03] LABS: Albumin Globulin Ratio 0.7 (0.9-2); Albumin Level 3.1 gm/dl (3.4-5.0); BUN Creatinine Ratio 19.8 (10-20); Bilirubin,Total 0.5 mg/dl (0.2-1.0); Calcium 9.4 mg/dl (8.6-10.3); Est GFR (African American) 16.7 ml/min; Est GFR (Non-African American) 14.4 ml/min; Globulin 4.4 gm/dl (2.5-4.0); Magnesium 2.5 mg/dl (1.7-2.4); Potassium 4.9 mmol/L (3.5-5.1); Total Protein 7.5 gm/dl (6.0-8.3)
[2023-01-22 14:06] LABS: Basophilic Stippling 1+; Polychromasia 1+
[2023-01-22 14:09] LABS: Troponin I High Sensitivity 27.5 pg/ml (0-20)
[2023-01-22 14:15] LABS: INR 1.2 (0.9-1.1); Partial Thromboplastin Ratio 1.1; Partial Thromboplastin Time 31.4 Seconds (21.0-31.0); Prothrombin Time 12.7 Seconds (9.0-12.0)
[2023-01-22 14:29] LABS: Adenovirus PCR Not Detected (NotDetected); Bordetella parapertussis PCR Not Detected (NotDetected); Bordetella pertussis PCR Not Detected (NotDetected); Chlamydia pneumoniae PCR Not Detected (NotDetected); Coronavirus 229E PCR Not Detected (NotDetected); Coronavirus CoV-2 (COVID19)PCR Not Detected (NotDetected); Coronavirus HKU1 PCR Not Detected (NotDetected); Coronavirus NL63 PCR Not Detected (NotDetected); Coronavirus OC43PCR Not Detected (NotDetected); Human Metapneumovirus PCR Not Detected (NotDetected); Influenza A PCR Not Detected (NotDetected); Influenza B PCR Not Detected (NotDetected); Mycoplasma pneumoniae PCR Not Detected (NotDetected); Parainfluenza Virus 1 PCR Not Detected (NotDetected); Parainfluenza Virus 2 PCR Not Detected (NotDetected); Parainfluenza Virus 3 PCR Not Detected (NotDetected); Parainfluenza Virus 4 PCR Not Detected (NotDetected); Respiratory Syncytial VirusPCR Not Detected (NotDetected); Rhinovirus/Enterovirus PCR Not Detected (NotDetected)
--- NOTE | 2023-01-22 14:32 | CT Scan Report ---
CT OF THE CHEST WITHOUT IV CONTRAST CLINICAL HISTORY: Shortness of breath. Respiratory failure. COMPARISON STUDY: Chest CTs January 12, 2023 and January 19, 2023. Chest radiograph performed franko reza. CT DOSE: 1087.62 mGy.cm TECHNIQUE: Axial images of the chest were obtained without IV contrast. Images were reviewed in the axial, sagittal, and coronal planes. IV contrast was not administered for this examination. Automat ed exposure control was utilized for the study. A dose lowering technique was utilized adhering to t he principles of ALARA. FINDINGS: Thoracic aortic endovascular stent graft is in place. Aneurysmal dilatation of the descend ing thoracic aorta is stable to slightly increased since prior exam, measuring 5.1 cm. Size of the he art is normal. There is no pericardial effusion. Left pleural effusion has decreased in size since pr ior exam. Emphysema is present. There is no consolidation to suggest pneumonia. Subpleural opacities reflect atelectasis. Abdominal aortic stent graft is partially imaged. The appearance of the visualiz ed portions of the abdominal aorta is unchanged. A 2 mm calculus within the upper pole of the left ki dney is incidentally noted. There are moderate secretions within the trachea and mainstem bronchi. IMPRESSION: 1. No consolidation to suggest pneumonia. 2. Emphysema. 3. Moderate secretions within the trachea and mainstem bronchi. 4. Thoracic aortic endovascular stent graft in place. Aneurysmal dilatation of the descending thoraci c aorta is stable to slightly increased since prior CT measuring 5.1 cm. This is suboptimally assesse d on this unenhanced exam. ACT 112: Negative or not required by law. Electronically signed by: Peterson Hart M.D. 01/22/2023 2:30 PM
[2023-01-22] MEDS ORDERED: SODIUM CHLORIDE 0.9% 500 ML IV ONE (14:47)
[2023-01-22] MEDS ORDERED: CEFEPIME 2,000 MG/20 ML VIAL IV STA (14:47)
--- NOTE | 2023-01-22 15:04 | History & Physical Report ---
Date of Service January 22, 2023 Assessment & Plan (1) Acute respiratory failure with hypoxia: Plan: Acute hypoxic respiratory failure Presents on nonrebreather SPO2 sats in the 70s with increased tachypnea Patient does not provide meaningful history other than indicating pain - CTchest: No consolidation suggestive of pneumonia. Emphysema. Moderate secretions of the trachea and mainstem bronchi, thoracic endovascular stent in place stable to slightly increased but suboptimally assessed without contrast. ?aspiration SPO2 98% on PPV No leukocytosis VBG 7.25/61/40/27. Respiratory acidosis. Secretions are noted on CT and mainstem bronchus, no evidence of pneumonia although Pro-Judah is significantly elevated Blood cultures pending Continue cefepime/vancomycin. Daptomycin converted to vancomycin for pulmonary coverage, ID consultation Patient is minimally arousable at bedside, CThead and pneumonia pending. - Admitted ot ICU for respiratory failure and poor TV (2) Gram-positive bacteremia: Plan: History of gram-positive bacteremia - BARREL RACER, S. haemolyticus, E facalis cultures on prior admit. Recurrent BARREL RACER bacteremia 01/12-01/13 vanc/dapto sensitive. Endograft at risk of infectious, but no clear infection durin gadmit Repeat blood cultures pending Discharged on daptomycin started 01/12, patient did receive Zosyn 01/12 and 01/13. Was recommended to complete 6 weeks of daptomycin, and dosing was increased to 10 mg/kg's for Enterococcus with DAYNA of 2. With hypoxia and concern for pulmonary involvement Dapto not appropriate for initial treatment, will admit on cefepime/vancomycin and consult ID for additional recommendations (3) Acute UTI: Plan: - vs contaminated urine. Unable to obtain subjective from pt at bedside. Covered by abx as above (4) Atrial fibrillation: Plan: History of A-fib, recent cardiopulmonary arrest DOAC converted to heparin while inpatient and critically ill Admitting EKG normal sinus rhythm without territorial signs of ischemia Following contrast exposure despite premedication at prior hospitalization. Likely 2/2 critical illness, but cannot exclude contrast allergy. Patient is anticoagulated so risk of PE is low, will convert apixaban to heparin while (5) CAROLINA (acute kidney injury): Plan: CAROLINA, transient HD dependence CAR[place] with bilateral renal infarcts and IV contrast administration at last hospitalization Last hemodialysis 01/14/2023, creatinine was stable at around 3.4 since Right IJ was removed 01/18/2023. No further dialysis was anticipated at that time Admitting creatinine is uptrending at 3.8. Potassium is upper limit of normal. No emergent indication for dialysis on admission - nephrology consulted Anemia Normocytic Last hemoglobin 7.7, 7.5 on readmission. Recently ranging from 78 0.5 and in the setting of CKD. No active bleeding appreciated at time of admission Transfusion threshold of 7.0. Type and cross ordered (6) GERD (gastroesophageal reflux disease): Plan: - PPI (7) Diabetes mellitus, type 2: Plan: ICU hyperglycemia per (8) CAD (coronary artery disease): Plan: - With history of stents Troponin is downtrending from prior, 27.5. Trended. No ischemic findings on EKG, Plan DVT prophylaxis: On heparin Diet: N.p.o. Disposition: ICU CODE STATUS: Full code, family is discussing whether patient would want to convert to DNR/DNI given current circumstance History of Present Illness Primary Care Provider: Gabriel Thomson Yaron Edwards is a 72-year-old male recently discharged 1 day ago after an admission for cardiopulmonary arrest following administration of IV contrast, gram-positive bacteremia with staph epi plus Enterococcus faecalis, ambulatory dysfunction, recent thoracic aneurysm repair, A-fib with history of RVR on apixaban who was discharged to rehab but who presents with AHRF [facility] and was reportedly doing well yesterday, but when was evaluated by staff today was found to be hypoxic to the 70s and much less responsive than normal. His son reports that Yaron had also been confused over the last 24 hours. Had some coughing, but to their knowledge had not had any fevers or chills. Had been taking daptomycin as directed.. Limited history is obtained as patient is lethargic and arouses transiently but does not follow commands or answer questions. Did discuss with the patient's son Yaron's goals of care. They report that he was doing well 48 hours ago and his goal would be to return to a similar level of function. They would like him to remain full code at this time, however if ROSC was not achieved within 3 to 5 minutes they would not want prolonged efforts taken. His son and daughter will continue to discuss goals of care and whether/when DNR/DNI would be within his wishes Allergies Allergy/AdvReac Type Severity Reaction Status Date / Time Iodinated Contrast Media Allergy Severe Anaphylaxis Verified 01/22/23 14:52 morphine Allergy Intermediate hives Verified 01/22/23 14:52 Penicillins Allergy Intermediate skin Verified 01/22/23 14:52 streaking tetanus toxoid, adsorbed Allergy Intermediate local skin Verified 01/22/23 14:52 irritation meperidine AdvReac Intermediate hallucinations, Verified 01/22/23 14:52 agitation Home Medications Medication Instructions Recorded Confirmed Type aspirin 81 mg tablet,delayed 81 mg PO QAM 01/18/19 01/22/23 History release (Nora Low Dose Aspirin) amlodipine 5 mg tablet 5 mg PO QAM 03/29/22 01/22/23 History metoprolol tartrate 100 mg tablet 100 mg PO BID 03/29/22 01/22/23 History albuterol sulfate 90 mcg/actuation 2 puff inhalation Q6H PRN Wheezing 01/10/23 01/22/23 History aerosol inhaler clopidogrel 75 mg tablet (Plavix) 75 mg PO QAM 01/10/23 01/22/23 History fluticasone furoate 100 1 inh inhalation QAM 01/10/23 01/22/23 History mcg-vilanterol 25 mcg/dose inhalation powder (Breo Ellipta) oxycodone 5 mg tablet 5 mg PO Q4H PRN Pain 01/10/23 01/22/23 History apixaban 5 mg tablet (Eliquis) 5 mg PO BID #50 tabs 01/21/23 01/22/23 Rx daptomycin 350 mg/50 mL in 0.9 % 850 mg IV Q48H 01/22/23 01/22/23 History sodium chloride intravenous piggyback insulin regular human 100 unit/mL 1 sliding scale dose subcut ACHS 01/22/23 01/22/23 History injection solution (Humulin R PRN BLOOD SUGAR CONTROL Regular U-100 Insulin) naloxone 4 mg/actuation nasal 4 mg intranasal DIRECTED PRN 01/22/23 01/22/23 History spray (Narcan) Opioid Overdose Past Med/Surg History Medical History Benign prostatic hyperplasia with urinary obstruction Elevated PSA Malignant neoplasm of kidney excluding renal pelvis Urethral stricture History of abdominal aortic aneurysm (AAA) s/p repair + stent (2008) CAD (coronary artery disease) stents x 2 (2000) History of kidney cancer left kidney (2014) s/p tumor removal (s/p partial left nephrectomy) BPH (benign prostatic hyperplasia) GERD (gastroesophageal reflux disease) controlled Diabetes mellitus, type 2 diet controlled History of skin cancer face Hx of myocardial infarction 2000 - stents x 2 Hypertension Hyperlipidemia Renal mass, left Surgical History Status post insertion of iliac artery stent (from trauma from endovascular procedure per records) Hx of colonoscopy History of AAA (abdominal aortic aneurysm) repair + stent (2008) Hx of hernia repair Hx of abdominal surgery d/t peritonitis History of appendectomy History of kidney surgery Left partial robotic nephrectomy, hand assisted laparoscopy: 09/24/14: Grade I view, MAC#4, ETT 8 at [facility] Family History Brother Family history of diabetes mellitus Social History Smoking Status: Unknown if ever smoked Tobacco Type: Cigarettes Second Hand Exposure: No; Do You Dip or Chew Tobacco: No; Hx Alcohol Use: No Hx Substance Use: No Preferred Language: Yi Communication Ability: Effective Air Shovel Operator Required: No Beliefs That Will Affect Care: None Current Living Situation: Alone Current Living Situation Comment: single family home Feels Safe at Home: Yes Assistive Devices: Cane Physical Exam Physical Exam: General: Lethargic. Withdraws to pain only, does not answer questions or follow commands HEENT: Atraumatic, normocephalic. Pupils equal and reactive to light. Unable to assess vision/ Pulm: Diminished globally but grossly clear. No rales, rhonchi symmetrical chest rise. No increased work of breathing. No respiratory distress. Cardiac: Regular,, -mrg. Radial pulses intact and symmetrical. Abdominal: Nontender, nondistended, soft. BS present. Extremities: Unable to assess strength/sensation due to cognitive status. Does withdraw to upper extremity noxious stimuli bilaterally Results & Data Results & Data Vital Signs (Past 12 Hours) Vital Signs Temp Pulse Pulse Resp BP BP Pulse Ox 01/22/23 14:38 83 22 94/64 L 98 01/22/23 14:29 84 18 91/61 L 98 01/22/23 14:20 79 26 H 99 01/22/23 14:10 115 H 24 01/22/23 14:02 93/65 L 01/22/23 14:02 91 H 22 01/22/23 14:01 81 41 H 01/22/23 13:45 99/53 L 01/22/23 13:45 79 24 01/22/23 13:43 80 25 H 84/65 L 01/22/23 13:40 37.0 C 78 20 98 01/22/23 13:30 75 32 H 92 01/22/23 13:20 74 01/22/23 13:18 84 L 01/22/23 13:17 88 30 H 113/62 87 L O2 Del Method O2 Flow Rate FiO2 01/22/23 14:38 CPAP 01/22/23 14:29 CPAP 01/22/23 14:20 01/22/23 14:10 01/22/23 14:02 01/22/23 14:02 01/22/23 14:01 01/22/23 13:45 01/22/23 13:45 01/22/23 13:43 01/22/23 13:40 BiPAP 01/22/23 13:30 BiPAP 50 01/22/23 13:20 01/22/23 13:18 CPAP 01/22/23 13:17 Non-rebreather 10 PG Care Time/CCT Total # of Minutes Spent Total Time Spent with Patient: Total time spent is greater than 50% in coordination of care (as documented) at patient's floor/unit and/or counseling patient: Coding Level of Care Code 80656 INT INP/OBS CARE 3/75MIN Diagnoses Acute respiratory failure with hypoxia J96.01 Gram-positive bacteremia R78.81 Acute UTI N39.0 Atrial fibrillation I48.91 [place] (acute kidney injury) N17.9 GERD (gastroesophageal reflux disease) K21.9 Type 2 diabetes mellitus with other circulatory complication, without long-term current use of insulin E11.59 Diabetes mellitus complication detail: with other circulatory complications Diabetes mellitus complication status: with circulatory complication Diabetes mellitus group home insulin use: without long term care phlebotomist use Coronary artery disease involving [place] coronary artery of [place] heart without angina pectoris I25.10 Associated angina: without angina Coronary Disease-Associated Artery/Lesion type: [place] artery [place] vs. transplanted heart: comanche heart (7) Diabetes mellitus, type 2 Diabetes mellitus complication detail: with other circulatory complications Diabetes mellitus complication status: with circulatory complication Diabetes mellitus long term care phlebotomist insulin use: without long term care phlebotomist use Qualified Code(s): E11.59 - Type 2 diabetes mellitus with other circulatory complications (8) CAD (coronary artery disease) Associated angina: without angina Coronary Disease-Associated Artery/Lesion type: [place] artery [place] vs. transplanted heart: [place] heart Qualified Code(s): I25.10 - Atherosclerotic heart disease of [place] coronary artery without angina pectoris
[2023-01-22 15:27] LABS: Appearance Urine Turbid (Clear); Bacteria Urine Automated 3+ (Negative); Bilirubin Urine Negative (Negative); Blood Urine 3+ (Negative); Cast Urine Automated 0 /lpf (0-5); Color Urine Yellow; Glucose Urine UA Negative (Negative); Ketones Urine Negative (Negative); Leukocyte Esterase Urine 2+ (Negative); Nitrite Urine Negative (Negative); Protein Urine 1+ (Negative); Specific Gravity Urine 1.012 (1.000-1.030); Urobilinogen Urine Negative (Negative); WBC Urine Automated >30 /hpf (0-5)
[2023-01-22] MEDS ORDERED: VANCOMYCIN HCL 1,750 MG in SODIUM CHLORIDE 0.9% 500 ML IV STA (15:41)
[2023-01-22] MEDS ORDERED: LACTATED RINGER'S 1,000 ML IV ONE (15:48)
[2023-01-22 16:07] LABS: Base Excess VBG -2.4 mEq/L; HCO3 VBG 26 mmol/L; Oxygen Saturation VBG 64.5 %; PCO2 VBG 63 mmHg (38-50); PO2 VBG 39 mmHg; pH VBG 7.23 (7.36-7.41)
[2023-01-22] MEDS ORDERED: Heparin IV Adult Wt-Based Low-Dose *NO* Bolus Protocol IV STA (16:12)
[2023-01-22] MEDS ORDERED: HEPARIN SODIUM/DEXTROSE 25,000 UNITS/500 ML BAG IV SCH (16:30)
--- NOTE | 2023-01-22 16:32 | CT Scan Report ---
CT OF THE HEAD WITHOUT CONTRAST CLINICAL HISTORY: acute lethargy, AMS COMPARISON STUDY: Head CT January 12, 2023. CT DOSE: 1100.35 mGy.cm TECHNIQUE: Helical axial images of the head were obtained without IV contrast. Automated exposure con trol was utilized for the study. A dose lowering technique was utilized adhering to the principles o f ALARA. FINDINGS: No acute intracranial hemorrhage, midline shift or mass effect is present. The ventricular system is stable. White matter hypodensities are unchanged and favor small vessel disease. The basal cisterns are patent. No extra-axial collections are present. There are no findings to suggest acute d ural sinus thrombosis or acute territorial infarct. No significant calvarial abnormalities are presen t. Visualized portions of the sinuses and mastoid air cells are clear. IMPRESSION: No acute intracranial findings. No change in appearance of the brain. ACT 112: Negative or not required by law. Electronically signed by: Peterson Hart M.D. 01/22/2023 4:31 PM
[2023-01-22 17:28] LABS: iSTAT Arterial Blood Gas HCO3 28 meg/L (19-24); iSTAT Arterial Blood Gas pCO2 63 mmHg (35-46); iSTAT Arterial Blood Gas pH 7.26 (7.35-7.45); iSTAT Arterial Blood Gas pO2 126 mmHg (80-95); iSTAT Carbon Dioxide 30 mmol/L (24-31); iSTAT Hematocrit 19 % (42-52); iSTAT Hemoglobin 6.5 g/dl (14.0-18.0); iSTAT Potassium 5.1 mmol/L (3.3-5.0); iSTAT Sodium 144 mmol/L (135-144)
--- NOTE | 2023-01-22 17:30 | Critical Care Consultation ---
Date of Consultation January 22, 2023 Assessment & Plan (1) Acute encephalopathy: (2) History of thoracic aortic aneurysm repair: (3) Gram-positive bacteremia: (4) Acute UTI: (5) Uremia: (6) Complicated UTI (urinary tract infection): Plan 72-year-old male who was discharged from the hospital 01/21/2023 due to gram- positive cocci bacteremia, respiratory arrest and CAROLINA is now readmitted due to altered mental status and hypoxemia. Neurologic: Currently obtunded likely due to metabolic encephalopathy. Low threshold for intubation. Pulmonary: Currently on BiPAP with tenuous respiratory status. We will likely proceed with intubation if respiratory status and mental status do not improve upon arrival to ICU. Pulmonary embolism thought to be less likely as the patient has been anticoagulated with Eliquis. CT chest with contrast relatively contraindicated due to concern of anaphylactic-like reaction. Cardiovascular: Maintain maps above 65 mmHg. Patient with a history of thoracic aortic aneurysm repair and dilation of the thoracic aorta to 5.1 cm. Echo 01/13/2023 with mild concentric LVH and normal LV function. Normal RV function. Started on heparin drip in the ER. Gastrointestinal: NPO. If intubated, placed NG tube. Renal: Recent admission with CAROLINA. Underwent hemodialysis during his last admission due to CAROLINA secondary to bilateral renal infarcts and IV contrast. Currently appears uremic with elevated BUN. Electrolytes acceptable. Lactate 0.8 on admission. Infectious disease: Obtain sputum, blood cultures and urine cultures. Empirically treating severe sepsis with possible complicated UTI. Continue vancomycin, cefepime and Flagyl. ID consult given recent bacteremia. Bacteremia was thought to be possibly related to HD catheter. Hematologic: Patient with severe anemia at baseline. Will transfuse if hemoglobin less than 7. Started on heparin drip by ER due to concerns of possible pulmonary embolism and history of atrial fibrillation. Will likely discontinue given ongoing anemia. Endocrine: Check TSH to rule out myxedema coma. Maintain euglycemia. Lines and tubes: Right single-lumen PICC line in place from recent hospitalization. Acosta catheter in place. 18-gauge peripheral IV in the left antecubital fossa. VTE prophylaxis: SCDs CODE STATUS: Full Family at bedside: Updated by hospitalist service. Not readily available at bedside. Disposition: ICU I have personally spent 58 minutes of critical care time in the direct management of this patient. This is a life/limb threatening event. This includes time spent evaluating patient, direct bedside care, chart review, placing orders, interpretation of diagnostic studies, discussion with consultants, patient, and family members, as well as other required patient management activities. This time is exclusive of all separately billable procedures, and teaching time and separate from and in addition to any other critical care service time. Thank you for allowing us to participate in the care of this patient. History of Present Illness Reason for Consultation: Severe sepsis and altered mental status History of Present Illness 72-year-old male who was just discharged [facility] the [facility] after having a lengthy admission for respiratory arrest after undergoing a CAT scan receiving IV contrast. During that hospitalization he developed gram-positive bacteremia with staph epi and Enterococcus faecalis. Notably he recently had a thoracic aneurysm repair and there was concern that this may have been infected. ID was on board during his last admission recommended IV antibiotics on discharge. No history is obtainable from the patient as he is currently obtunded. History is obtained from discussion with the bedside nurse, chart review and discussion with hospitalist service. Patient was apparently doing relatively well today but then was found to be hypoxic by staff. He was sent to the ER and was found to be essentially obtunded. He has received 1 L of crystalloid fluids and is currently on BiPAP. He does not respond to commands. He does occasionally move his right arm and move his head [id number]. He does withdrawal to painful stimuli. Labs significant for severe chronic anemia, elevated BUN of 85 and creatinine 3.88. VBG reveals ongoing respiratory acidosis with a pH of 7.23 and PCO2 of 63. CT head negative for acute findings. CT chest without contrast reveals emphysema and secretions in the trachea and mainstem bronchi. Aneurysmal dilation of the ascending thoracic aorta is stable to slightly increased compared to prior CT measuring 5.1 cm. Allergies Allergy/AdvReac Type Severity Reaction Status Date / Time Iodinated Contrast Media Allergy Severe Anaphylaxis Verified 01/22/23 14:52 morphine Allergy Intermediate hives Verified 01/22/23 14:52 Penicillins Allergy Intermediate skin Verified 01/22/23 14:52 streaking tetanus toxoid, adsorbed Allergy Intermediate local skin Verified 01/22/23 14:52 irritation meperidine AdvReac Intermediate hallucinations, Verified 01/22/23 14:52 agitation Home Medications Medication Instructions Recorded Confirmed Type aspirin 81 mg tablet,delayed 81 mg PO QAM 01/18/19 01/22/23 History release (Nora Low Dose Aspirin) amlodipine 5 mg tablet 5 mg PO QAM 03/29/22 01/22/23 History metoprolol tartrate 100 mg tablet 100 mg PO BID 03/29/22 01/22/23 History albuterol sulfate 90 mcg/actuation 2 puff inhalation Q6H PRN Wheezing 01/10/23 01/22/23 History aerosol inhaler clopidogrel 75 mg tablet (Plavix) 75 mg PO QAM 01/10/23 01/22/23 History fluticasone furoate 100 1 inh inhalation QAM 01/10/23 01/22/23 History mcg-vilanterol 25 mcg/dose inhalation powder (Breo Ellipta) oxycodone 5 mg tablet 5 mg PO Q4H PRN Pain 01/10/23 01/22/23 History apixaban 5 mg tablet (Eliquis) 5 mg PO BID #50 tabs 01/21/23 01/22/23 Rx daptomycin 350 mg/50 mL in 0.9 % 850 mg IV Q48H 01/22/23 01/22/23 History sodium chloride intravenous piggyback insulin regular human 100 unit/mL 1 sliding scale dose subcut ACHS 01/22/23 01/22/23 History injection solution (Humulin R PRN BLOOD SUGAR CONTROL Regular U-100 Insulin) naloxone 4 mg/actuation nasal 4 mg intranasal DIRECTED PRN 01/22/23 01/22/23 History spray (Narcan) Opioid Overdose Patient History Medical History (Updated 01/22/23 @ 17:30 by Lucio Caldera MD) Complicated UTI (urinary tract infection) Uremia Acute encephalopathy Benign prostatic hyperplasia with urinary obstruction Elevated PSA Malignant neoplasm of kidney excluding renal pelvis Urethral stricture History of abdominal aortic aneurysm (AAA) s/p repair + stent (2008) CAD (coronary artery disease) stents x 2 (2000) History of kidney cancer left kidney (2014) s/p tumor removal (s/p partial left nephrectomy) BPH (benign prostatic hyperplasia) GERD (gastroesophageal reflux disease) controlled Diabetes mellitus, type 2 diet controlled History of skin cancer face Hx of myocardial infarction 2000 - stents x 2 Hypertension Hyperlipidemia Renal mass, left Surgical History Status post insertion of iliac artery stent (from trauma from endovascular procedure per records) Hx of colonoscopy History of AAA (abdominal aortic aneurysm) repair + stent (2008) Hx of hernia repair Hx of abdominal surgery d/t peritonitis History of appendectomy History of kidney surgery Left partial robotic nephrectomy, hand assisted laparoscopy: 09/24/14: Grade I view, MAC#4, ETT 8 at [facility] Family History Brother Family history of diabetes mellitus Social History Smoking Status: Unknown if ever smoked Tobacco Type: Cigarettes Second Hand Exposure: No; Do You Dip or Chew Tobacco: No; Hx Alcohol Use: No Hx Substance Use: No Preferred Language: Venezuelan Communication Ability: Effective 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 Obtunded. Withdraws to painful stimuli. Eyes: Pupils are equal round and reactive to light. Conjunctivae are normal. Anicteric sclera. Ears nose, mouth and throat: BiPAP mask in place. No facial trauma seen Neck: Trachea is midline. Visual inspection is normal. Respiratory: Mild rhonchi in the upper lung lentz. Increased work of breathing and tachypnea. Cardiovascular: Regular rate and rhythm. No murmurs. No edema. Gastrointestinal: Normal bowel sounds, soft, nontender and nondistended. No hepatosplenomegaly noted. Musculoskeletal: No cyanosis. Patient is able to move all extremities. Strength is 5 out of 5 in the upper and lower extremities. Skin: No rashes, warm dry and intact. Neurologic: Nonfocal, but obtunded Psychiatric: Unable to assess due to severe encephalopathy. Results & Data Results & Data Vital Signs (Past 12 Hours) Vital Signs Temp Pulse Pulse Resp BP BP Pulse Ox 01/22/23 17:00 139 H 104/60 96 01/22/23 16:45 90 107/68 90 01/22/23 16:30 85 106/53 L 98 01/22/23 16:15 122 H 104/57 L 97 01/22/23 16:00 108 H 102/49 L 99 01/22/23 15:45 102 H 108/47 L 97 01/22/23 15:34 92 H 32 H 99 01/22/23 15:30 92 H 97/59 L 98 01/22/23 15:15 90 96/57 L 95 01/22/23 15:00 82 112/65 97 01/22/23 14:38 83 22 94/64 L 98 01/22/23 14:29 84 18 91/61 L 98 01/22/23 14:20 79 26 H 99 01/22/23 14:10 115 H 24 01/22/23 14:02 93/65 L 01/22/23 14:02 91 H 22 01/22/23 14:01 81 41 H 01/22/23 13:45 99/53 L 01/22/23 13:45 79 24 01/22/23 13:43 80 25 H 84/65 L 01/22/23 13:40 37.0 C 78 20 98 01/22/23 13:30 75 32 H 92 01/22/23 13:20 74 01/22/23 13:18 84 L 01/22/23 13:17 88 30 H 113/62 87 L O2 Del Method O2 Flow Rate FiO2 01/22/23 17:00 BiPAP 01/22/23 16:45 BiPAP 01/22/23 16:30 CPAP 01/22/23 16:15 Non-rebreather 01/22/23 16:00 CPAP 01/22/23 15:45 CPAP 01/22/23 15:34 50 01/22/23 15:30 CPAP 01/22/23 15:15 CPAP 01/22/23 15:00 CPAP 01/22/23 14:38 CPAP 01/22/23 14:29 CPAP 01/22/23 14:20 01/22/23 14:10 01/22/23 14:02 01/22/23 14:02 01/22/23 14:01 01/22/23 13:45 01/22/23 13:45 01/22/23 13:43 01/22/23 13:40 BiPAP 01/22/23 13:30 BiPAP 50 01/22/23 13:20 01/22/23 13:18 CPAP 01/22/23 13:17 Non-rebreather 10 Coding Level of Care Code 83355 CRITICAL CARE 1ST 30-74M Diagnoses Acute encephalopathy G93.40 History of thoracic aortic aneurysm repair Z98.890; Z86.79 Gram-positive bacteremia R78.81 Acute UTI N39.0 Uremia N19 Complicated UTI (urinary tract infection) N39.0 Time Spent (min) 58
[2023-01-22 17:34] LABS: Hematocrit (blood only) 21.1 % (42.0-52.0); Hemoglobin 6.5 g/dl (14.0-18.0); Mean Corpuscular Hemoglobin 29.5 pg (25.0-34.0); Mean Corpuscular Hgb Conc 30.8 g/dL (32.0-36.0); Mean Corpuscular Volume 95.9 fL (80.0-100.0); Mean Platelet Volume 10.3 fL (9.4-12.4); Platelet Count 295 K/uL (130-400); RDW Coefficient of Variation 14.3 % (11.5-14.5); RDW Standard Deviation 49.4 fL (36.4-46.3); White Blood Count 8.16 K/ul (4.8-10.8)
[2023-01-22 17:39] LABS: BUN Creatinine Ratio 21.6 (10-20); Calcium 8.8 mg/dl (8.6-10.3); Creatinine Clr Calc Pharmacy 18.2 ml/min; Est GFR (African American) 18.2 ml/min; Est GFR (Non-African American) 15.7 ml/min
[2023-01-22 17:47] LABS: Anisocytosis Present; Basophilic Stippling 1+; Basophils # (auto) 0.01 K/uL (0.00-0.20); Basophils % (auto) 0.1 %; Eosinophils # (auto) 0.17 K/uL (0.00-0.50); Eosinophils % (auto) 2.1 %; Immature Granulocytes # (auto) 0.05 K/uL (0.01-0.20); Immature Granulocytes % (auto) 0.6 %; Lymphocytes # (auto) 1.05 K/uL (1.20-3.40); Lymphocytes % (auto) 12.9 %; Monocytes # (auto) 0.57 K/uL (0.11-0.59); Neutrophils # (auto) 6.31 K/uL (1.40-6.50); Neutrophils % (auto) 77.3 %
[2023-01-22] MEDS ORDERED: SODIUM CHLORIDE 0.9% 250 ML IV PRN (17:56)
[2023-01-22 18:00] LABS: Thyroid Stimulating Hormone 0.437 uIu/ml (0.300-4.500)
[2023-01-22] MEDS ORDERED: INFLUENZA VACCINE HIGH-DOSE (HD-IIV4) PF 65+ 0.7mL SYR IM ONE (18:33)
[2023-01-22] MEDS: PLASMA-LYTE A 1,000 ML IV SCH (18:51)
[2023-01-22] MEDS ORDERED: ETOMIDATE 2 MG/ML 20 ML VIAL IV ONE (19:02)
[2023-01-22] MEDS ORDERED: ROCURONIUM BROMIDE 10 MG/ML 5 ML VIAL IV ONE (19:02)
[2023-01-22] MEDS ORDERED: fentaNYL citrate 100 MCG/2 ML CARP IV ONE (19:02)
[2023-01-22 19:14] LABS: Hematocrit (blood only) 22.5 % (42.0-52.0); Hemoglobin 6.6 g/dl (14.0-18.0); Mean Corpuscular Hemoglobin 28.9 pg (25.0-34.0); Mean Corpuscular Hgb Conc 29.3 g/dL (32.0-36.0); Mean Corpuscular Volume 98.7 fL (80.0-100.0); Mean Platelet Volume 10.2 fL (9.4-12.4); Platelet Count 334 K/uL (130-400); RDW Coefficient of Variation 14.3 % (11.5-14.5); RDW Standard Deviation 50.7 fL (36.4-46.3); Red Blood Count 2.28 M/uL (4.70-6.10); White Blood Count 8.83 K/ul (4.8-10.8)
[2023-01-22 19:15] LABS: Fibrinogen 818 mg/dl (184-400)
[2023-01-22 19:55] LABS: Anisocytosis Present; Basophilic Stippling 1+; Basophils # (auto) 0.01 K/uL (0.00-0.20); Basophils % (auto) 0.1 %; Eosinophils # (auto) 0.19 K/uL (0.00-0.50); Eosinophils % (auto) 2.2 %; Hypochromasia Present; Immature Granulocytes # (auto) 0.03 K/uL (0.01-0.20); Immature Granulocytes % (auto) 0.3 %; Lymphocytes # (auto) 1.41 K/uL (1.20-3.40); Monocytes # (auto) 0.62 K/uL (0.11-0.59); Neutrophils # (auto) 6.57 K/uL (1.40-6.50); Neutrophils % (auto) 74.4 %; Stomatocytes 1+
--- NOTE | 2023-01-22 20:21 | CT Scan Report ---
CT OF THE ABDOMEN AND PELVIS WITHOUT CONTRAST CLINICAL HISTORY: eval vascular stent and bleeding COMPARISON STUDY: CTA of the abdomen and pelvis January 12, 2023. TECHNIQUE: Axial images of the abdomen and pelvis were obtained without IV contrast. Images were revi ewed in the axial, sagittal, and coronal planes. Automated exposure control was utilized for the mario alberto dy. A dose lowering technique was utilized adhering to the principles of ALARA. FINDINGS: The thoracic aortic aneurysm and thoracic aortic stent graft are better depicted on the [facility] CT, reported earlier today. Abdominal aortic stent graft is in place. Aneurysmal dilatation of the aorta at the level of the diaphragmatic hiatus, measuring 4.7 cm, is unchanged since CT of January 12, 2023. Aneurysmal dilatation of the right common iliac artery measuring 2.9 cm is unchanged. Mild a neurysmal dilatation of the left common femoral artery is unchanged. A 2.2 cm outpouching arising fro m the anterior aspect of the right common femoral artery with adjacent stranding is similar to prior CT. The vessels and stent grafts are suboptimally assessed on this unenhanced exam however there is n o evidence for rupture. Bilateral renal calculi measure up to 8 mm. There are no ureteral calculi and there is no hydronephrosis. A Acosta balloon and gas within the bladder are present. The bladder is c ollapsed. Low-attenuation bilateral renal lesions are suboptimally assessed on this exam but favor cy sts. There is no evidence for a bowel obstruction. Extensive colonic diverticulosis is present withou t evidence for acute diverticulitis. There has been no significant change in appearance of the abdome n or pelvis since CT of January 12, 2023. IMPRESSION: 1. No significant change in appearance of the abdomen and pelvis since CT of January 12, 2023. 2. Suboptimal evaluation of thoracic and abdominal aortic stent grafts on this unenhanced exam. No ev idence for rupture. No significant change in size of the aneurysms of the abdominal aorta, right comm on iliac artery and left common femoral artery. 3. 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 4. Colonic diverticulosis. No evidence for acute diverticulitis. 5. Bilateral nephrolithiasis. No ureteral calculi or hydronephrosis. ACT 112: Negative or not required by law. Electronically signed by: Peterson Hart M.D. 01/22/2023 8:19 PM
[2023-01-22 21:03] LABS: Base Excess VBG -4.3 mEq/L; HCO3 VBG 26 mmol/L; PCO2 VBG 73 mmHg (38-50); PO2 VBG 53 mmHg; pH VBG 7.16 (7.36-7.41)
[2023-01-22] MEDS ORDERED: NOREPINEPHRINE/D5W 4 MG/250 ML IV ONE (21:16)
[2023-01-22] MEDS ORDERED: RAPID SEQUENCE INDUCTION BAG ONE (21:17)
[2023-01-22] MEDS ORDERED: PROPOFOL IV EMULSION 10 MG/ML 100 ML VIAL IV ONE (21:31)
[2023-01-22] MEDS ORDERED: PROPOFOL BOLUS FROM BAG IV PRN (21:35)
[2023-01-22] MEDS ORDERED: STAT IV Infusion **Titration per Protocol STA ×2 (21:35→21:59)
[2023-01-22] MEDS ORDERED: fentaNYL citrate PF 100 MCG/2 ML VIAL IV PRN (21:35)
[2023-01-22] MEDS: PANTOprazole 40 MG in SYRINGE 0 ML IV SCH (21:57)
[2023-01-22] MEDS: ICU Protocol for HYPERglycemia SCH (21:57)
[2023-01-22] MEDS: propofoL 1,000 MG/100 ML VIAL IV SCH (21:58)
[2023-01-22] MEDS ORDERED: LACTATED RINGER'S 500 ML IV ONE (21:59)
--- NOTE | 2023-01-22 22:03 | Procedure Note ---
Procedure Note Date of Service January 22, 2023 Note INTUBATION PROCEDURE NOTE: APC: Simran Williamson PA-C. Attending: Dr. Caldera Assist: Dr. Cisse A time-out was completed verifying correct patient, procedure, site, positioning. Patient was evaluated and required intubation for refractory hypercarbic respiratory failure. Discussed via telephone with Dr. Caldera. Sedative agent used: Etomidate 20mg, fentanyl 50mcg Paralysis agent used: Rocuronium 100mg Emergent consent was implied given patients rapidly declining clinical status and need for airway protection. The patient was prepared in the appropriate fashion. Sedation was achieved utilizing Etomidate and fentanyl as above, per Dr. Cisse administration. The patient preoxygenated with BIPAP and was subsequently easily ventilated using [id number] to achieve adequate oxygenation. A 7.5French endotracheal tube was placed under video laryngoscopy to 24 cm at the lip. Directly visualized second black line passing vocal cords. The stylette was removed and balloon was inflated with 10mL of air. Appropriate Colorimetric change was appreciated. Bilateral breath sounds were heard without air sounds in the abdomen. Appreciate Dr. Cisse assistance with this procedure. Post Intubation Chest X-ray confirms placement without pneumothorax. Patient tolerated the procedure well and there were no immediate complications. Coding
--- NOTE | 2023-01-22 22:05 | Communication Note ---
Date of Service: January 22, 2023 Discussed course with patient's daughter, Lucy. She is aware Yaron has been placed on the ventilator. All questions were answered to apparent satisfaction. Verbal consent was obtained for central venous catheter and arterial catheter. Coding Level of Care Code None
[2023-01-22] MEDS: NOREPINEPHRINE/D5W 4 MG/250 ML PLCT IV SCH (22:17)
[2023-01-22 22:37] LABS: Base Excess VBG -2.5 mEq/L; HCO3 VBG 26 mmol/L; Oxygen Saturation VBG < 60.0 %; PCO2 VBG 61 mmHg (38-50); PO2 VBG 29 mmHg; pH VBG 7.24 (7.36-7.41)
--- NOTE | 2023-01-22 22:56 | XRay Report ---
XR chest 1V portable HISTORY: Endotracheal tube placement. COMPARISON: Chest 01/22/2023. FINDINGS: The endotracheal tube terminates 3.5 cm and the gerson. Nasogastric tube terminates in the stomach. A right PICC terminates in the SVC. An aortic stent graft is again noted. No pneumothorax. N o pleural effusions. No focal lung consolidations to suggest a pneumonia. No evidence for pulmonary e cathleen. Emphysema again noted. IMPRESSION: Satisfactory support line placement as described above. Otherwise, no acute process within the chest. ACT 112: Negative or not required by law. Electronically signed by: Alvarado Bo M.D. 01/22/2023 10:55 PM
[2023-01-22 23:25] LABS: iSTAT Allen Test Pass; iSTAT Art Bld Gas pCO2 Correct 40 mmHg (35-46); iSTAT Arterial Blood Gas HCO3 22 meg/L (19-24); iSTAT Arterial Blood Gas pCO2 41 mmHg (35-46); iSTAT Arterial Blood Gas pH 7.34 (7.35-7.45); iSTAT Arterial Blood Gas pO2 64 mmHg (80-95); iSTAT Arterial Blood Gas pO2 C 62; iSTAT Carbon Dioxide 24 mmol/L (24-31); iSTAT FiO2 40 %; iSTAT Hematocrit 22 % (42-52); iSTAT Hemoglobin 7.5 g/dl (14.0-18.0); iSTAT Potassium 4.6 mmol/L (3.3-5.0); iSTAT Site L Radial; iSTAT Sodium 143 mmol/L (135-144)
[2023-01-23 00:42] LABS: Basophils # (auto) 0.03 K/uL (0.00-0.20); Basophils % (auto) 0.3 %; Eosinophils # (auto) 0.19 K/uL (0.00-0.50); Eosinophils % (auto) 1.8 %; Hematocrit (blood only) 26.4 % (42.0-52.0); Hemoglobin 7.8 g/dl (14.0-18.0); Immature Granulocytes # (auto) 0.07 K/uL (0.01-0.20); Immature Granulocytes % (auto) 0.6 %; Lymphocytes # (auto) 1.38 K/uL (1.20-3.40); Lymphocytes % (auto) 12.8 %; Mean Corpuscular Hemoglobin 28.3 pg (25.0-34.0); Mean Corpuscular Hgb Conc 29.5 g/dL (32.0-36.0); Mean Corpuscular Volume 95.7 fL (80.0-100.0); Mean Platelet Volume 9.8 fL (9.4-12.4); Monocytes % (auto) 5.6 %; Neutrophils # (auto) 8.52 K/uL (1.40-6.50); Neutrophils % (auto) 78.9 %; Platelet Count 338 K/uL (130-400); RDW Coefficient of Variation 15.9 % (11.5-14.5); RDW Standard Deviation 54.9 fL (36.4-46.3); Red Blood Count 2.76 M/uL (4.70-6.10); White Blood Count 10.79 K/ul (4.8-10.8)
[2023-01-23 01:02] LABS: Anisocytosis Present; Polychromasia 1+
[2023-01-23] MEDS ORDERED: DEXTROSE 50% 50 ML SYRINGE IV ONE (02:25)
[2023-01-23] MEDS: PLASMA-LYTE A 1,000 ML IV SCH (02:35)
[2023-01-23] MEDS ORDERED: CEFEPIME 1,000 MG in SYRINGE 0 ML IV SCH (03:00)
[2023-01-23] MEDS: propofoL 1,000 MG/100 ML VIAL IV SCH ×5 (03:40→22:06)
[2023-01-23 04:29] LABS: Base Excess VBG -1.1 mEq/L; HCO3 VBG 25 mmol/L; Oxygen Saturation VBG < 60.0 %; PCO2 VBG 48 mmHg (38-50); PO2 VBG 29 mmHg; pH VBG 7.33 (7.36-7.41)
[2023-01-23] MEDS: ACETAMINOPHEN 325 MG TAB PO PRN (04:33)
[2023-01-23 04:54] LABS: Basophils # (auto) 0.02 K/uL (0.00-0.20); Basophils % (auto) 0.2 %; Hematocrit (blood only) 25.8 % (42.0-52.0); Hemoglobin 7.8 g/dl (14.0-18.0); Immature Granulocytes # (auto) 0.06 K/uL (0.01-0.20); Immature Granulocytes % (auto) 0.6 %; Lymphocytes # (auto) 1.27 K/uL (1.20-3.40); Lymphocytes % (auto) 12.9 %; Mean Corpuscular Hemoglobin 28.3 pg (25.0-34.0); Mean Corpuscular Hgb Conc 30.2 g/dL (32.0-36.0); Mean Corpuscular Volume 93.5 fL (80.0-100.0); Mean Platelet Volume 10.3 fL (9.4-12.4); Monocytes # (auto) 0.64 K/uL (0.11-0.59); Monocytes % (auto) 6.5 %; Neutrophils # (auto) 7.67 K/uL (1.40-6.50); Neutrophils % (auto) 77.8 %; Platelet Count 343 K/uL (130-400); RDW Coefficient of Variation 15.9 % (11.5-14.5); RDW Standard Deviation 54.1 fL (36.4-46.3); Red Blood Count 2.76 M/uL (4.70-6.10); White Blood Count 9.86 K/ul (4.8-10.8)
[2023-01-23 05:02] LABS: Albumin Level 2.9 gm/dl (3.4-5.0); Bilirubin,Total 0.6 mg/dl (0.2-1.0); Calcium 9.2 mg/dl (8.6-10.3); Magnesium 2.2 mg/dl (1.7-2.4); Potassium 4.3 mmol/L (3.5-5.1)
[2023-01-23 05:07] LABS: iSTAT Allen Test Pass; iSTAT Art Bld Gas pCO2 Correct 37 mmHg (35-46); iSTAT Art Bld Gas pH Corrected 7.405 (7.35-7.45); iSTAT Arterial Blood Gas HCO3 23 meg/L (19-24); iSTAT Arterial Blood Gas pCO2 36 mmHg (35-46); iSTAT Arterial Blood Gas pH 7.42 (7.35-7.45); iSTAT Arterial Blood Gas pO2 72 mmHg (80-95); iSTAT Arterial Blood Gas pO2 C 78; iSTAT Carbon Dioxide 24 mmol/L (24-31); iSTAT FiO2 40 %; iSTAT Hematocrit 22 % (42-52); iSTAT Hemoglobin 7.5 g/dl (14.0-18.0); iSTAT Potassium 4.1 mmol/L (3.3-5.0); iSTAT Site L Radial; iSTAT Sodium 144 mmol/L (135-144)
[2023-01-23 05:08] LABS: Albumin Globulin Ratio 0.7 (0.9-2); Creatinine Clr Calc Pharmacy 19.9 ml/min; Est GFR (African American) 19.8 ml/min; Est GFR (Non-African American) 17.1 ml/min; Globulin 4.1 gm/dl (2.5-4.0)
[2023-01-23 05:13] LABS: Microcytosis Present; Polychromasia 1+
[2023-01-23] MEDS: FLUTICASONE/VILANTEROL 100/25MCG 14 PUFFS/INHALER INH SCH (07:33)
[2023-01-23] MEDS: PANTOprazole 40 MG in SYRINGE 0 ML IV SCH ×2 (07:48→21:09)
[2023-01-23] MEDS: ICU Protocol for HYPERglycemia SCH ×4 (07:48→21:09)
[2023-01-23] MEDS ORDERED: ASPIRIN 81 MG ECTAB PO SCH (09:00)
[2023-01-23] MEDS ORDERED: CLOPIDOGREL BISULFATE 75 MG TAB PO SCH (09:00)
[2023-01-23] MEDS ORDERED: Heparin IV Adult Wt-Based Low-Dose *NO* Bolus Protocol IV STA (09:20)
[2023-01-23] MEDS ORDERED: VANCOMYCIN CONSULT ACTIVE PRN (09:22)
--- NOTE | 2023-01-23 09:22 | Critical Care Progress Note ---
Date of Service January 23, 2023 Assessment & Plan (1) Acute encephalopathy: (2) History of thoracic aortic aneurysm repair: (3) Gram-positive bacteremia: (4) Acute UTI: (5) Uremia: (6) Complicated UTI (urinary tract infection): (7) Endotracheally intubated: Plan 72-year-old male who was discharged from the hospital 01/21/2023 due to gram- positive cocci bacteremia, respiratory arrest and CAR[place] is now readmitted due to altered mental status and hypoxemia. Neurologic: Currently intubated for airway protection and hypercapnic respiratory failure. Continue sedation with propofol and fentanyl. Maintain RASS of -1. We will obtain MRI brain without contrast to evaluate for central causes of encephalopathy. CT head on admission was negative. Pulmonary: Intubated overnight 01/23/2023 due to worsening respiratory acidosis. Continue lung protective ventilation strategy. We will perform daily spontaneous awakening trials in the Daily spontaneous breathing trials. VBG this morning with adequate ventilation. Patient with significant neuromuscular weakness due to prolonged hospitalization. 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 Pulmonary embolism thought to be less likely as the patient has been anticoagulated with Eliquis. We will hold DOAC and start low-dose heparin infusion without bolus given history of atrial fibrillation and prior history of DVT. CT chest with contrast relatively contraindicated due to concern of anaphylactic-like reaction. CT chest without IV contrast was performed yesterday which revealed emphysema and secretions in the trachea and mainstem bronchi. No clear evidence of pneumonia. Thoracic aortic endovascular stent graft is in place with mild aneurysmal dilation of the ascending thoracic aorta which was considered stable to slightly increased since his prior CT measuring 5.1 cm Cardiovascular: Maintain maps above 65 mmHg. Currently receiving low-dose Levophed infusion via right PICC line. Patient with a history of thoracic aortic aneurysm repair and dilation of the thoracic aorta to 5.1 cm. Echo 01/13/2023 with mild concentric LVH and normal LV function. Normal RV function. Continue heparin drip given history of atrial fibrillation and prior DVT. Gastrointestinal: Protonix 40 mg twice daily. Start tube feeds. Renal: Recent admission with CAR[place]INA. Underwent hemodialysis during his last admission due to CAR[place] secondary to bilateral renal infarcts and IV contrast. Notably, he also had bilateral renal artery stenting at [facility] 12/23/2022. Creatinine improving along with BUN. Continue fluids. Nephrology consulted as they were closely following during his last discharge. Monitor urine output closely which appears adequate at this time. Infectious disease: Obtain sputum, blood cultures and urine cultures. Urine cultures growing gram- negative bacilli 01/22/2023. New temp sensing Acosta catheter placed on admission 01/22/2023. Empirically treating severe sepsis with possible complicated UTI. Continue vancomycin, cefepime. ID consult given recent bacteremia. Bacteremia was thought to be possibly related to HD catheter, but catheter tip was negative. Hematologic: Patient with severe anemia at baseline. Status post 1 unit packed RBCs 01/22/2023. Patient with severe anemia of chronic disease and had a drop in hemoglobin yesterday likely secondary to hemodilution. Continue to monitor CBCs frequently and transfusion for hemoglobin less than 7. Patient with history of prior DVT in the left lower extremity in 2020. Patient also with a history of renal cell carcinoma status post partial nephrectomy in 2014. Endocrine: TSH unremarkable. Maintain euglycemia. Lines and tubes: Right single-lumen PICC line in place from recent hospitalization. Acosta catheter in place (01/22/2023). 18-gauge peripheral IV in the left antecubital fossa. VTE prophylaxis: SCDs, heparin drip CODE STATUS: Full Family at bedside: Updated overnight by ICU PA. Disposition: ICU I have personally spent 48 minutes of critical care time in the direct management of this patient. This is a life/limb threatening event. This includes time spent evaluating patient, direct bedside care, chart review, placing orders, interpretation of diagnostic studies, discussion with consultants, patient, and family members, as well as other required patient management activities. This time is exclusive of all separately billable procedures, and teaching time and separate from and in addition to any other critical care service time. Thank you for allowing us to participate in the care of this patient. Admission and Anticipated Discharge Date Admission Date: January 22, 2023 Subjective Patient seen and examined. Unfortunately yesterday evening his hypercapnia was worse and he was emergently intubated due to concern of losing his airway. Currently he is sedated with propofol. He also has Levophed infusing via PICC line. No significant overnight events since intubation. Unobtainable review of systems as the patient is currently intubated. The patient was discussed on multidisciplinary rounds. Review of Systems Review of Systems: Unobtainable due to endotracheal tube Physical Exam Physical Exam: Constitutional: Frail appearing. Obtunded. Withdraws to painful stimuli. Eyes: Pupils are equal round and reactive to light. Conjunctivae are normal. Anicteric sclera. Ears nose, mouth and throat: ETT in place. Neck: No issues. Respiratory: Coarse lung sounds. No tachypnea. In sync with the ventilator. Cardiovascular: Regular rate and rhythm. No murmurs. No edema. Gastrointestinal: Normal bowel sounds, soft, nontender and nondistended. No hepatosplenomegaly noted. Musculoskeletal: No cyanosis. Patient is able to move all extremities. Strength is 5 out of 5 in the upper and lower extremities. Skin: No rashes, warm dry and intact. Neurologic: Nonfocal, but obtunded. Intubated on sedation. Psychiatric: Unable to assess due to severe encephalopathy. Results & Data Results & Data Vital Signs (Past 12 Hours) Vital Signs Temp Pulse Pulse Resp BP BP Pulse Ox 01/23/23 07:42 83 18 98 01/23/23 06:00 37.7 C H 82 18 97 01/23/23 05:45 37.8 C H 84 18 98 01/23/23 05:45 116/60 01/23/23 05:30 113/59 L 01/23/23 05:30 38.0 C H 85 18 98 01/23/23 05:15 38.0 C H 82 18 98 01/23/23 05:15 113/58 L 01/23/23 05:00 131/61 01/23/23 05:00 38.1 C H 88 18 98 01/23/23 04:45 38.1 C H 85 20 97 01/23/23 04:45 120/55 L 01/23/23 04:34 38.1 C H 88 20 95 01/23/23 04:34 102/52 L 01/23/23 04:30 89/47 L 01/23/23 04:30 38.1 C H 90 20 94 01/23/23 04:15 121/78 01/23/23 04:15 38.1 C H 97 H 20 96 01/23/23 04:00 106/67 01/23/23 04:00 38.0 C H 95 H 20 96 01/23/23 04:00 01/23/23 04:00 01/23/23 03:45 103/70 01/23/23 03:45 38.0 C H 93 H 20 96 01/23/23 03:30 113/93 01/23/23 03:30 37.8 C H 103 H 20 97 01/23/23 03:15 104/46 L 01/23/23 03:15 37.7 C H 92 H 20 97 01/23/23 03:00 37.6 C H 92 H 20 99 01/23/23 03:00 123/53 L 01/23/23 02:45 102/66 01/23/23 02:45 37.5 C 99 H 20 98 01/23/23 02:30 97/59 L 01/23/23 02:30 37.4 C 98 H 20 95 01/23/23 02:23 88 20 98 01/23/23 02:15 37.4 C 90 20 98 01/23/23 02:15 94/58 L 01/23/23 02:03 101/56 L 01/23/23 02:03 37.4 C 117 H 20 92 01/23/23 02:00 76/46 L 01/23/23 02:00 37.3 C 89 20 97 01/23/23 01:45 81/57 L 01/23/23 01:45 37.3 C 91 H 20 97 01/23/23 01:31 37.1 C 93 H 20 96 01/23/23 01:31 89/46 L 01/23/23 01:30 37.1 C 95 H 20 96 01/23/23 01:16 100/53 L 01/23/23 01:16 37.0 C 97 H 20 95 01/23/23 01:12 01/23/23 01:02 36.9 C 98 H 20 95 01/23/23 01:02 104/69 01/23/23 01:00 36.9 C 98 H 20 95 01/23/23 00:45 90/66 L 01/23/23 00:45 36.8 C 98 H 20 100 01/23/23 00:33 36.7 C 99 H 20 95 01/23/23 00:33 122/76 01/23/23 00:30 36.7 C 100 H 20 96 01/23/23 00:00 36.6 C 92 H 20 97 01/23/23 00:00 143/80 H 01/23/23 00:00 01/23/23 00:00 99 H 01/22/23 23:30 158/82 H 01/22/23 23:30 36.5 C 98 H 20 95 01/22/23 23:00 139/77 01/22/23 23:00 36.4 C L 92 H 20 95 01/22/23 22:30 01/22/23 22:30 146/76 H 01/22/23 22:30 36.4 C L 90 20 96 01/22/23 22:23 36.4 C L 91 H 20 97 01/22/23 22:23 141/70 H 01/22/23 22:20 145/71 H 01/22/23 22:20 36.4 C L 91 H 20 97 01/22/23 22:17 36.4 C L 89 20 96 01/22/23 22:17 119/63 01/22/23 22:15 125/64 01/22/23 22:15 36.4 C L 87 20 97 01/22/23 22:13 146/77 H 01/22/23 22:13 36.4 C L 85 20 97 01/22/23 22:10 36.4 C L 83 20 98 01/22/23 22:10 149/84 H 01/22/23 22:08 36.4 C L 83 20 98 01/22/23 22:08 155/85 H 01/22/23 22:08 36.5 C 79 22 156/86 H 99 01/22/23 22:05 157/86 H 01/22/23 22:05 36.5 C 80 20 99 01/22/23 22:03 156/86 H 01/22/23 22:03 36.5 C 79 20 100 01/22/23 22:00 01/22/23 22:00 36.5 C 78 20 100 01/22/23 22:00 158/86 H 01/22/23 22:00 36.4 C L 84 24 146/77 H 97 01/22/23 21:59 160/86 H 01/22/23 21:59 36.5 C 78 20 100 01/22/23 21:58 165/86 H 01/22/23 21:58 36.5 C 75 20 100 01/22/23 21:57 36.5 C 76 20 100 01/22/23 21:57 162/88 H 01/22/23 21:56 168/86 H 01/22/23 21:56 36.5 C 79 20 100 01/22/23 21:55 36.5 C 75 20 100 01/22/23 21:55 177/89 H 01/22/23 21:53 171/87 H 01/22/23 21:53 36.5 C 75 18 100 01/22/23 21:52 179/95 H 01/22/23 21:52 36.5 C 74 20 100 01/22/23 21:51 177/92 H 01/22/23 21:51 36.5 C 75 20 100 01/22/23 21:50 36.5 C 77 20 100 01/22/23 21:50 174/91 H 01/22/23 21:48 170/94 H 01/22/23 21:48 36.5 C 78 20 100 01/22/23 21:47 159/88 H 01/22/23 21:47 36.6 C 80 20 100 01/22/23 21:46 150/91 H 01/22/23 21:46 36.6 C 78 20 100 01/22/23 21:35 77 20 100 Pulse Ox O2 Del Method O2 Del Method O2 Flow Rate FiO2 01/23/23 07:42 40 01/23/23 06:00 01/23/23 05:45 01/23/23 05:45 01/23/23 05:30 01/23/23 05:30 01/23/23 05:15 01/23/23 05:15 01/23/23 05:00 01/23/23 05:00 01/23/23 04:45 01/23/23 04:45 01/23/23 04:34 01/23/23 04:34 01/23/23 04:30 01/23/23 04:30 01/23/23 04:15 01/23/23 04:15 01/23/23 04:00 01/23/23 04:00 01/23/23 04:00 30 01/23/23 04:00 91 Mechanical Vent 01/23/23 03:45 01/23/23 03:45 01/23/23 03:30 01/23/23 03:30 01/23/23 03:15 01/23/23 03:15 01/23/23 03:00 01/23/23 03:00 01/23/23 02:45 01/23/23 02:45 01/23/23 02:30 01/23/23 02:30 01/23/23 02:23 30 01/23/23 02:15 01/23/23 02:15 01/23/23 02:03 01/23/23 02:03 01/23/23 02:00 01/23/23 02:00 01/23/23 01:45 01/23/23 01:45 01/23/23 01:31 01/23/23 01:31 01/23/23 01:30 01/23/23 01:16 01/23/23 01:16 01/23/23 01:12 40 01/23/23 01:02 01/23/23 01:02 01/23/23 01:00 01/23/23 00:45 01/23/23 00:45 01/23/23 00:33 01/23/23 00:33 01/23/23 00:30 01/23/23 00:00 01/23/23 00:00 01/23/23 00:00 91 Mechanical Vent 01/23/23 00:00 01/22/23 23:30 01/22/23 23:30 01/22/23 23:00 01/22/23 23:00 01/22/23 22:30 Mechanical Vent 40 01/22/23 22:30 01/22/23 22:30 01/22/23 22:23 01/22/23 22:23 01/22/23 22:20 01/22/23 22:20 01/22/23 22:17 01/22/23 22:17 01/22/23 22:15 01/22/23 22:15 01/22/23 22:13 01/22/23 22:13 01/22/23 22:10 01/22/23 22:10 01/22/23 22:08 01/22/23 22:08 01/22/23 22:08 01/22/23 22:05 01/22/23 22:05 01/22/23 22:03 01/22/23 22:03 01/22/23 22:00 96 Mechanical Vent 40 01/22/23 22:00 01/22/23 22:00 01/22/23 22:00 Mechanical Vent 01/22/23 21:59 01/22/23 21:59 01/22/23 21:58 01/22/23 21:58 01/22/23 21:57 01/22/23 21:57 01/22/23 21:56 01/22/23 21:56 01/22/23 21:55 01/22/23 21:55 01/22/23 21:53 01/22/23 21:53 01/22/23 21:52 01/22/23 21:52 01/22/23 21:51 01/22/23 21:51 01/22/23 21:50 01/22/23 21:50 01/22/23 21:48 01/22/23 21:48 01/22/23 21:47 01/22/23 21:47 01/22/23 21:46 01/22/23 21:46 01/22/23 21:35 40 Coding Level of Care Code 70002 CRITICAL CARE 1ST 30-74M Diagnoses Acute encephalopathy G93.40 History of thoracic aortic aneurysm repair Z98.890; Z86.79 Gram-positive bacteremia R78.81 Acute UTI N39.0 Uremia N19 Complicated UTI (urinary tract infection) N39.0 Endotracheally intubated Z97.8
[2023-01-23 09:23] LABS: Base Excess VBG -0.8 mEq/L; HCO3 VBG 25 mmol/L; Oxygen Saturation VBG 67.2 %; PCO2 VBG 44 mmHg (38-50); PO2 VBG 37 mmHg; pH VBG 7.36 (7.36-7.41)
[2023-01-23] MEDS: LACTATED RINGER'S 1,000 ML IV SCH ×2 (10:24→22:22)
[2023-01-23] MEDS: HEPARIN SODIUM/DEXTROSE 25,000 UNITS/500 ML BAG IV SCH (11:08)
[2023-01-23] MEDS ORDERED: VANCOMYCIN HCL 1,250 MG in SODIUM CHLORIDE 0.9% 250 ML IV ONE (11:30)
--- NOTE | 2023-01-23 11:31 | Pharmacy Report ---
Pharmacy PK ABX Note - Date of Service January 23, 2023 - Assessment and Plan Assessment * 72 yo male who was discharged from the hospital 01/21/2023 due to MRSE and E. faecalis bacteremia on daptomycin, respiratory arrest and [place]. Readmitted 01/22 due to altered mental status and hypoxemia, currently being treated for bacteremia, HAP, and UTI * Dapto switched to vanco for better pulmonary coverage * Cefepime started * ID consulted * Unclear what new baseline SCr may be after recent CAR[place]. SCr is trending down today to 3.4. Will dose vancomycin via level. * Level of 16.1 mcg/mL this AM likely therapeutic. Will give additional one- time dose of vancomycin today and repeat random level tomorrow AM Plan Vancomycin * 1250 mg IV x1 now * Random level in AM Pharmacy will continue to follow and will adjust dose/frequency as necessary. Thank you. Pharmacy has transitioned to AUC monitoring for vancomycin. AUC/DAYNA is the preferred PK/PD target and is associated with decreased risk of nephrotoxicity compared to traditional trough targets.
--- NOTE | 2023-01-23 11:32 | Nephrology Consultation ---
Date of Consultation January 23, 2023 Assessment & Plan (1) Acute renal disease: (2) Complicated UTI (urinary tract infection): (3) Acute respiratory failure with hypoxia: (4) AMS (altered mental status): (5) Anemia: (6) Generalized weakness: Plan 72-year old gentleman with recent multiple prolonged hospitalization for aortic dissection repair, acute kidney injury requiring dialysis, bacteremia and UTI, presented to the hospital with respiratory failure and altered mental status requiring intubation. Required dialysis for acute kidney injury during hospitalization in December however has been off of dialysis since 01/14/2023. No sign of volume overload. Creatinine staying relatively stable around 3.5 with acceptable electrolytes. Decent urine output and acceptable volume status. --No indication to resume dialysis at this time however high risk for worsening of renal function with hypotension. Continue to monitor renal function, electrolyte, and output while continuing with hemodynamic support. -- Dose medications for eGFR less than 30, avoid all nephrotoxic medications. Thank you for allowing me to participate in your patient's care. It was a pleasure to see Mr. Acosta. History of Present Illness Reason for Consultation: Dialysis requiring CAROLINA Attending Physician: Jarrett Blanc MD History of Present Illness Mr. Yaron Acosta is a 72 year-old male with recent dialysis requiring CAROLINA, hypertension, CAD, diabetes, prostate cancer, aortic dissection status postsurgical repair at [facility] and prior h/o aortic dissection and endovascular repair at [facility] in 2008, admitted to hospital yesterday with respiratory failure. Nephrology consult was requested for evaluation for CAROLINA and need for dialysis. EMR records were reviewed in detail during patient's visit. Patient's son was at bedside during the visit. Yaron was discharged from [facility] on 01/21/23 and then brought to ER by EMS on 01/23/23 from [facility] as he has been declining there overnight with respiratory distress and he was hypoxic on room air. He was initially placed on BiPAP but eventually had to be intubated yesterday. Chest x-ray was negative for pulmonary congestion, infiltrate or pleural effusion. Was hypotensive with systolic blood pressure as low as 76/46, received multiple IV fluid boluses and currently on Plasma-Lyte 125 ml/h. On Cefepime. Has been also requiring pressor with slight improvement in blood pressure. On admission creatinine was 3.8 which improved back to 3.4 this morning, electrolyte was acceptable. His kidney function was stabilizing with creatinine around 3.4-3.5 prior to discharge. Last dialysis was 05/14/2022. He has been voiding decent amount of urine. RT IJ tunneled Dialysis catheter was removed during last hospitalization because of bacteremia. He was admitted to [facility] in early December with type B aortic dissection extending form the L subclavian to a prior EVAR. There was significant thrombus involving the endograft extending into the renal arteries. He developed acute kidney injury from bilateral renal infarction and had b/l renal artery stenting with EVAR and IVUS on December 23, but unfortunately kidney function did not recover and he was started on HD on 12/20/22 via rt IJ TDC. Had h/o RCC s/p partial nephrectomy as well as a history of prostatectomy for prostate cancer and B/L cr prior to admission was 1.4 mg/dL. After an extensive hospitalization, he was discharged home to [facility] in [place] and was getting outpatient dialysis at [facility]. He was admitted to [facility] from 01/13/23 to 01/21/23 with profound weakness and debility. During hospitalization he was noted to have improvement in UO and cr was stabilizing. He was also found to have bacteremia and eventually tunneled catheter was removed. His last dialysis was on 12/14/2022. Was off of dialysis for a week before he was discharged from hospital 2 days ago and during that time he was making urine, creatinine was staying stable around 3.5 and electrolyte was acceptable. Currently he is intubated and sedated. Blood pressure improved on pressor. Has been having decent urine output. Creatinine improved down to 3.4 this morning, electrolyte acceptable. Allergies Allergy/AdvReac Type Severity Reaction Status Date / Time Iodinated Contrast Media Allergy Severe Anaphylaxis Verified 01/22/23 14:52 morphine Allergy Intermediate hives Verified 01/22/23 14:52 Penicillins Allergy Intermediate skin Verified 01/22/23 14:52 streaking tetanus toxoid, adsorbed Allergy Intermediate local skin Verified 01/22/23 14:52 irritation meperidine AdvReac Intermediate hallucinations, Verified 01/22/23 14:52 agitation Home Medications Medication Instructions Recorded Confirmed Type aspirin 81 mg tablet,delayed 81 mg PO QAM 01/18/19 01/22/23 History release (Nora Low Dose Aspirin) amlodipine 5 mg tablet 5 mg PO QAM 03/29/22 01/22/23 History metoprolol tartrate 100 mg tablet 100 mg PO BID 03/29/22 01/22/23 History albuterol sulfate 90 mcg/actuation 2 puff inhalation Q6H PRN Wheezing 01/10/23 01/22/23 History aerosol inhaler clopidogrel 75 mg tablet (Plavix) 75 mg PO QAM 01/10/23 01/22/23 History fluticasone furoate 100 1 inh inhalation QAM 01/10/23 01/22/23 History mcg-vilanterol 25 mcg/dose inhalation powder (Breo Ellipta) oxycodone 5 mg tablet 5 mg PO Q4H PRN Pain 01/10/23 01/22/23 History apixaban 5 mg tablet (Eliquis) 5 mg PO BID #50 tabs 01/21/23 01/22/23 Rx daptomycin 350 mg/50 mL in 0.9 % 850 mg IV Q48H 01/22/23 01/22/23 History sodium chloride intravenous piggyback insulin regular human 100 unit/mL 1 sliding scale dose subcut ACHS 01/22/23 01/22/23 History injection solution (Humulin R PRN BLOOD SUGAR CONTROL Regular U-100 Insulin) naloxone 4 mg/actuation nasal 4 mg intranasal DIRECTED PRN 01/22/23 01/22/23 History spray (Narcan) Opioid Overdose Patient History Medical History (Updated 01/23/23 @ 11:56 by Stephanie Leong MD) Acute renal disease Endotracheally intubated Complicated UTI (urinary tract infection) Uremia Acute encephalopathy Benign prostatic hyperplasia with urinary obstruction Elevated PSA Malignant neoplasm of kidney excluding renal pelvis Urethral stricture History of abdominal aortic aneurysm (AAA) s/p repair + stent (2008) CAD (coronary artery disease) stents x 2 (2000) History of kidney cancer left kidney (2014) s/p tumor removal (s/p partial left nephrectomy) BPH (benign prostatic hyperplasia) GERD (gastroesophageal reflux disease) controlled Diabetes mellitus, type 2 diet controlled History of skin cancer face Hx of myocardial infarction 2000 - stents x 2 Hypertension Hyperlipidemia Renal mass, left Surgical History Status post insertion of iliac artery stent (from trauma from endovascular procedure per records) Hx of colonoscopy History of AAA (abdominal aortic aneurysm) repair + stent (2008) Hx of hernia repair Hx of abdominal surgery d/t peritonitis History of appendectomy History of kidney surgery Left partial robotic nephrectomy, hand assisted laparoscopy: 09/24/14: Grade I view, MAC#4, ETT 8 at [facility] Family History Brother Family history of diabetes mellitus Social History Smoking Status: Former smoker Tobacco Type: Cigarettes Second Hand Exposure: No; Do You Dip or Chew Tobacco: No; Hx Alcohol Use: No Hx Substance Use: No Preferred Language: Serbian Communication Ability: Unable Electrician Maintenance Required: No Beliefs That Will Affect Care: None Current Living Situation: Rehab Current Living Situation Comment: From [facility] Feels Safe at Home: Yes Assistive Devices: Cane Review of Systems Review of Systems: Detailed review of system was not possible as patient was intubated and sedated. Physical Exam Constitutional: WD/WN, vitals as above + ill appearing and + mechanically ventilated ENMT: ET tube in place Neck: normal visual inspection Respiratory: no respiratory distress Auscultation: lungs clear to auscultation bilaterally Cardiovascular: RRR, no murmur, no edema Gastrointestinal (Abdomen): Inspection/Auscultation: abdomen normal to inspection Percussion/Palpation: abdomen soft; abdomen nontender Musculoskeletal: Extremities: extremities normal to inspection Skin: no rashes, warm and dry Neurologic: could not be assessed, responds to painful stimuli Psychiatric: could not be assessed. Results & Data Vital Signs (Past 12 Hours) Vital Signs Temp Pulse Resp BP Pulse Ox Pulse Ox O2 Del Method 01/23/23 10:05 80 19 99 01/23/23 07:42 83 18 98 01/23/23 06:00 37.7 C H 82 18 97 01/23/23 05:45 37.8 C H 84 18 98 01/23/23 05:45 116/60 01/23/23 05:30 113/59 L 01/23/23 05:30 38.0 C H 85 18 98 01/23/23 05:15 38.0 C H 82 18 98 01/23/23 05:15 113/58 L 01/23/23 05:00 131/61 01/23/23 05:00 38.1 C H 88 18 98 01/23/23 04:45 38.1 C H 85 20 97 01/23/23 04:45 120/55 L 01/23/23 04:34 38.1 C H 88 20 95 01/23/23 04:34 102/52 L 01/23/23 04:30 89/47 L 01/23/23 04:30 38.1 C H 90 20 94 01/23/23 04:15 121/78 01/23/23 04:15 38.1 C H 97 H 20 96 01/23/23 04:00 106/67 01/23/23 04:00 38.0 C H 95 H 20 96 01/23/23 04:00 01/23/23 04:00 91 Mechanical Vent 01/23/23 03:45 103/70 01/23/23 03:45 38.0 C H 93 H 20 96 01/23/23 03:30 113/93 01/23/23 03:30 37.8 C H 103 H 20 97 01/23/23 03:15 104/46 L 01/23/23 03:15 37.7 C H 92 H 20 97 01/23/23 03:00 37.6 C H 92 H 20 99 01/23/23 03:00 123/53 L 01/23/23 02:45 102/66 01/23/23 02:45 37.5 C 99 H 20 98 01/23/23 02:30 97/59 L 01/23/23 02:30 37.4 C 98 H 20 95 01/23/23 02:23 88 20 98 01/23/23 02:15 37.4 C 90 20 98 01/23/23 02:15 94/58 L 01/23/23 02:03 101/56 L 01/23/23 02:03 37.4 C 117 H 20 92 01/23/23 02:00 76/46 L 01/23/23 02:00 37.3 C 89 20 97 01/23/23 01:45 81/57 L 01/23/23 01:45 37.3 C 91 H 20 97 01/23/23 01:31 37.1 C 93 H 20 96 01/23/23 01:31 89/46 L 01/23/23 01:30 37.1 C 95 H 20 96 01/23/23 01:16 100/53 L 01/23/23 01:16 37.0 C 97 H 20 95 01/23/23 01:12 01/23/23 01:02 36.9 C 98 H 20 95 01/23/23 01:02 104/69 01/23/23 01:00 36.9 C 98 H 20 95 01/23/23 00:45 90/66 L 01/23/23 00:45 36.8 C 98 H 20 100 01/23/23 00:33 36.7 C 99 H 20 95 01/23/23 00:33 122/76 01/23/23 00:30 36.7 C 100 H 20 96 01/23/23 00:00 36.6 C 92 H 20 97 01/23/23 00:00 143/80 H 01/23/23 00:00 91 Mechanical Vent 01/23/23 00:00 99 H FiO2 01/23/23 10:05 40 01/23/23 07:42 40 01/23/23 06:00 01/23/23 05:45 01/23/23 05:45 01/23/23 05:30 01/23/23 05:30 01/23/23 05:15 01/23/23 05:15 01/23/23 05:00 01/23/23 05:00 01/23/23 04:45 01/23/23 04:45 01/23/23 04:34 01/23/23 04:34 01/23/23 04:30 01/23/23 04:30 01/23/23 04:15 01/23/23 04:15 01/23/23 04:00 01/23/23 04:00 01/23/23 04:00 30 01/23/23 04:00 01/23/23 03:45 01/23/23 03:45 01/23/23 03:30 01/23/23 03:30 01/23/23 03:15 01/23/23 03:15 01/23/23 03:00 01/23/23 03:00 01/23/23 02:45 01/23/23 02:45 01/23/23 02:30 01/23/23 02:30 01/23/23 02:23 30 01/23/23 02:15 01/23/23 02:15 01/23/23 02:03 01/23/23 02:03 01/23/23 02:00 01/23/23 02:00 01/23/23 01:45 01/23/23 01:45 01/23/23 01:31 01/23/23 01:31 01/23/23 01:30 01/23/23 01:16 01/23/23 01:16 01/23/23 01:12 40 01/23/23 01:02 01/23/23 01:02 01/23/23 01:00 01/23/23 00:45 01/23/23 00:45 01/23/23 00:33 01/23/23 00:33 01/23/23 00:30 01/23/23 00:00 01/23/23 00:00 01/23/23 00:00 01/23/23 00:00 PG Care Time/CCT Total # of Minutes Spent Total Time Spent with Patient: Total time spent is greater than 50% in coordination of care (as documented) at patient's floor/unit and/or counseling patient: Coding Level of Care Code 61308 INT INP/OBS CARE 3/75MIN Diagnoses Acute renal disease N28.9 Complicated UTI (urinary tract infection) N39.0 Acute respiratory failure with hypoxia J96.01 AMS (altered mental status) R41.0 Altered mental status type: disorientation Anemia D64.9 Generalized weakness R53.1 (4) AMS (altered mental status) Altered mental status type: disorientation Qualified Code(s): R41.0 - Disorientation, unspecified
[2023-01-23] MEDS ORDERED: LORazepam 3 MG in SYRINGE 1.5 ML IV STA (12:10)
[2023-01-23] MEDS ORDERED: LORazepam 2 MG/1 ML VIAL ONE (12:14)
[2023-01-23] MEDS: NOREPINEPHRINE/D5W 4 MG/250 ML PLCT IV SCH ×2 (12:19→16:27)
[2023-01-23 12:29] LABS: Basophils # (auto) 0.02 K/uL (0.00-0.20); Basophils % (auto) 0.2 %; Eosinophils # (auto) 0.21 K/uL (0.00-0.50); Eosinophils % (auto) 2.2 %; Hematocrit (blood only) 23.3 % (42.0-52.0); Hemoglobin 7.2 g/dl (14.0-18.0); Immature Granulocytes # (auto) 0.06 K/uL (0.01-0.20); Immature Granulocytes % (auto) 0.6 %; Lymphocytes # (auto) 1.05 K/uL (1.20-3.40); Lymphocytes % (auto) 10.9 %; Mean Corpuscular Hemoglobin 28.6 pg (25.0-34.0); Mean Corpuscular Hgb Conc 30.9 g/dL (32.0-36.0); Mean Corpuscular Volume 92.5 fL (80.0-100.0); Monocytes # (auto) 0.56 K/uL (0.11-0.59); Monocytes % (auto) 5.8 %; Neutrophils # (auto) 7.72 K/uL (1.40-6.50); Neutrophils % (auto) 80.3 %; Platelet Count 325 K/uL (130-400); RDW Coefficient of Variation 15.9 % (11.5-14.5); RDW Standard Deviation 53.2 fL (36.4-46.3); Red Blood Count 2.52 M/uL (4.70-6.10); White Blood Count 9.62 K/ul (4.8-10.8)
[2023-01-23 12:58] LABS: RBC Morphology Unremarkable
[2023-01-23] MEDS: NOVASOURCE RENAL 2.0 CAL 1000ML BAG OG SCH (13:54)
[2023-01-23] MEDS ORDERED: SODIUM CHLORIDE 0.9% 250 ML IV PRN (14:19)
[2023-01-23] MEDS ORDERED: FOSPHENYTOIN IV ONE (14:30)
[2023-01-23] MEDS ORDERED: SODIUM CHLORIDE IV ONE (14:30)
[2023-01-23] MEDS ORDERED: PIPER/TAZO 4.5g in D5W MINI-B 100 ML IV ONE (14:45)
--- NOTE | 2023-01-23 16:28 | Hospitalist Progress Note ---
Date of Service January 23, 2023 Assessment & Plan (1) Acute respiratory failure with hypoxia: Plan: Acute hypoxic respiratory failure Presents on nonrebreather SPO2 sats in the 70s with increased tachypnea ABG revealed respiratory acidosis, patient intubated and started on broad- spectrum antibiotic after he failed BiPAP - CTchest: No consolidation suggestive of pneumonia. Emphysema. Moderate secretions of the trachea and mainstem bronchi, No leukocytosis VBG 7.25/61/40/27. Respiratory acidosis. Secretions are noted on CT and mainstem bronchus, no evidence of pneumonia although Pro-Judah is significantly elevated Blood cultures pending Continue cefepime/vancomycin. Daptomycin converted to vancomycin for pulmonary coverage, ID consultation Patient was recently admitted to this facility with generalized weakness, after patient had a endovascular graft for aortic aneurysm, and other facility, the course was complicated with persistent gram-positive bacteremia, cardiopulmonary arrest, patient discharged to rehab facility after PICC line placed on 6 weeks course of treatment with daptomycin (2) Gram-positive bacteremia: Plan: History of gram-positive bacteremia - [facility], S. haemolyticus, E facalis cultures on prior admit. Recurrent [facility] bacteremia 01/12-01/13 vanc/dapto sensitive. Endograft at risk of infectious, but no clear infection durin gadmit Repeat blood cultures pending Discharged on daptomycin started 01/12, patient did receive Zosyn 01/12 and 01/13. Was recommended to complete 6 weeks of daptomycin, and dosing was increased to 10 mg/kg's for Enterococcus with DAYNA of 2. With hypoxia and concern for pulmonary involvement Dapto not appropriate for initial treatment, (3) Acute UTI: Plan: - vs contaminated urine. Unable to obtain subjective from pt at bedside. Covered by abx as above (4) Atrial fibrillation: Plan: History of A-fib, recent cardiopulmonary arrest DOAC converted to heparin while inpatient and critically ill Admitting EKG normal sinus rhythm without territorial signs of ischemia Following contrast exposure despite premedication at prior hospitalization. Likely 2/2 critical illness, but cannot exclude contrast allergy. Patient is anticoagulated so risk of PE is low, will convert apixaban to heparin while (5) CAROLINA (acute kidney injury): Plan: CAROLINA, transient HD dependence CAROLINA with bilateral renal infarcts and IV contrast administration at last hospitalization Last hemodialysis 01/14/2023, creatinine was stable at around 3.4 since Right IJ was removed 01/18/2023. No further dialysis was anticipated at that time Admitting creatinine is uptrending at 3.8. Potassium is upper limit of normal. No emergent indication for dialysis on admission - nephrology consulted Anemia Normocytic Last hemoglobin 7.7, 7.5 on readmission. Recently ranging from 78 0.5 and in the setting of CKD. No active bleeding appreciated at time of admission Transfusion threshold of 7.0. Type and cross ordered (6) GERD (gastroesophageal reflux disease): Plan: - PPI (7) Diabetes mellitus, type 2: Plan: ICU hyperglycemia per (8) CAD (coronary artery disease): Plan: - With history of stents Troponin is downtrending from prior, 27.5. Trended. No ischemic findings on EKG, Plan DVT prophylaxis: On heparin Diet: N.p.o. Disposition: ICU CODE STATUS: Full code, family is discussing whether patient would want to convert to DNR/DNI given current circumstance Admission and Anticipated Discharge Date Admission Date: January 22, 2023 Subjective Patient admitted yesterday with altered mental status and hypercapnia intubated for respiratory failure Physical Exam Physical Exam: Constitutional: Frail appearing. Obtunded. Withdraws to painful stimuli. Eyes: Pupils are equal round and reactive to light. Conjunctivae are normal. Anicteric sclera. Ears nose, mouth and throat: ETT in place. Neck: No issues. Respiratory: Coarse lung sounds. No tachypnea. In sync with the ventilator. Cardiovascular: Regular rate and rhythm. No murmurs. No edema. Gastrointestinal: Normal bowel sounds, soft, nontender and nondistended. No hepatosplenomegaly noted. Musculoskeletal: No cyanosis. Patient is able to move all extremities. Strength is 5 out of 5 in the upper and lower extremities. Skin: No rashes, warm dry and intact. Neurologic: Nonfocal, but obtunded. Intubated on sedation. Psychiatric: Unable to assess due to severe encephalopathy. Constitutional: WD/WN, vitals as above + ill appearing and + mechanically ventilated Neck: normal visual inspection Respiratory: no respiratory distress Auscultation: lungs clear to auscultation bilaterally Cardiovascular: RRR, no murmur, no edema Gastrointestinal (Abdomen): Inspection/Auscultation: abdomen normal to inspection Percussion/Palpation: abdomen soft; abdomen nontender Musculoskeletal: Extremities: extremities normal to inspection Skin: no rashes, warm and dry Results & Data Results & Data Vital Signs (Past 12 Hours) Vital Signs Temp Pulse Resp BP Pulse Ox O2 Del Method FiO2 01/23/23 15:45 168/94 H 01/23/23 15:45 37.1 C 70 18 97 01/23/23 15:30 152/84 H 01/23/23 15:30 37.1 C 71 18 98 01/23/23 15:15 129/77 01/23/23 15:15 37.2 C 67 18 95 01/23/23 15:14 130/78 01/23/23 15:14 37.2 C 67 18 95 01/23/23 15:09 37.2 C 67 18 76 L 01/23/23 15:09 69/40 L 01/23/23 15:00 69/41 L 01/23/23 15:00 37.2 C 74 18 89 L 01/23/23 14:49 91/44 L 01/23/23 14:49 37.2 C 84 19 92 01/23/23 14:47 37.2 C 87 20 91/44 L 92 01/23/23 14:45 82 19 94 30 01/23/23 14:00 111/55 L 01/23/23 14:00 37.1 C 85 18 94 01/23/23 13:46 37.1 C 87 17 89 L 01/23/23 13:46 97/48 L 01/23/23 13:30 37.2 C 79 18 96 01/23/23 13:30 120/61 01/23/23 13:15 111/56 L 01/23/23 13:15 37.2 C 75 18 96 01/23/23 13:00 91/53 L 01/23/23 13:00 37.3 C 76 18 95 01/23/23 12:45 37.4 C 81 18 94 01/23/23 12:45 94/51 L 01/23/23 12:30 37.4 C 87 18 95 01/23/23 12:30 96/53 L 01/23/23 12:15 37.5 C 88 19 95 01/23/23 12:15 120/55 L 01/23/23 12:01 37.4 C 89 15 98 01/23/23 12:01 121/66 11/12/23 12:00 37.4 C 90 16 98 01/23/23 11:45 37.4 C 87 18 98 01/23/23 11:45 121/49 L 01/23/23 11:30 101/59 L 01/23/23 11:30 37.4 C 81 18 99 01/23/23 11:16 131/64 01/23/23 11:16 37.4 C 87 18 99 01/23/23 11:00 107/55 L 01/23/23 11:00 37.4 C 84 18 99 01/23/23 10:45 106/53 L 01/23/23 10:45 37.4 C 84 18 99 01/23/23 10:30 37.4 C 87 18 99 01/23/23 10:30 105/51 L 01/23/23 10:15 120/71 01/23/23 10:15 37.4 C 88 18 99 01/23/23 10:05 80 19 99 40 01/23/23 10:00 157/74 H 01/23/23 10:00 37.3 C 86 18 98 01/23/23 09:45 131/63 01/23/23 08:00 Mechanical Vent 01/23/23 07:42 83 18 98 40 01/23/23 06:00 37.7 C H 82 18 97 01/23/23 05:45 37.8 C H 84 18 98 01/23/23 05:45 116/60 01/23/23 05:30 113/59 L 01/23/23 05:30 38.0 C H 85 18 98 01/23/23 05:15 38.0 C H 82 18 98 01/23/23 05:15 113/58 L 01/23/23 05:00 131/61 01/23/23 05:00 38.1 C H 88 18 98 01/23/23 04:45 38.1 C H 85 20 97 01/23/23 04:45 120/55 L 01/23/23 04:34 38.1 C H 88 20 95 01/23/23 04:34 102/52 L 01/23/23 04:30 89/47 L 01/23/23 04:30 38.1 C H 90 20 94 PG Care Time/CCT Total # of Minutes Spent Total Time Spent with Patient: Total time spent is greater than 50% in coordination of care (as documented) at patient's floor/unit and/or counseling patient: Coding Level of Care Code 39868 SUB INP/OBS CARE 3/50MIN Diagnoses Acute respiratory failure with hypoxia J96.01 Gram-positive bacteremia R78.81 Acute UTI N39.0 Atrial fibrillation I48.91 CAROLINA (acute kidney injury) N17.9 GERD (gastroesophageal reflux disease) K21.9 Type 2 diabetes mellitus with other circulatory complication, without long-term current use of insulin E11.59 Diabetes mellitus rodent exterminator insulin use: without rodent exterminator use Diabetes mellitus complication status: with circulatory complication Diabetes mellitus complication detail: with other circulatory complications Coronary artery disease involving [place] coronary artery of [place] heart without angina pectoris I25.10 Coronary Disease-Associated Artery/Lesion type: [place] artery [place] vs. transplanted heart: [place] heart Associated angina: without angina (7) Diabetes mellitus, type 2 Diabetes mellitus rodent exterminator insulin use: without rodent exterminator use Diabetes mellitus complication status: with circulatory complication Diabetes mellitus complication detail: with other circulatory complications Qualified Code(s): E11.59 - Type 2 diabetes mellitus with other circulatory complications (8) CAD (coronary artery disease) Coronary Disease-Associated Artery/Lesion type: [place] artery [place] vs. transplanted heart: [place] heart Associated angina: without angina Qualified Code(s): I25.10 - Atherosclerotic heart disease of [place] coronary artery without angina pectoris
--- NOTE | 2023-01-23 17:24 | XRay Report ---
XR chest 1V portable HISTORY: picc line placement to right arm. COMPARISON: Chest 01/22/2023. FINDINGS: The right PICC terminates at the distal SVC/superior cavoatrial junction. The endotracheal tube terminates 3.2 cm from the gerson. A nasogastric tube terminates 11 diaphragm. The tip is not in cluded on this study. An aortic stent graft is again noted. No pneumothorax. Bibasilar interstitial t hickening persists. IMPRESSION: Satisfactory support line placement as above. ACT 112: Negative or not required by law. Electronically signed by: Alvarado Bo M.D. 01/23/2023 5:23 PM
--- NOTE | 2023-01-23 17:27 | Electroencephalogram ---
EEG Procedure Note Date of Service January 23, 2023 Start / End Times Start Time: 1634 End Time: [address] Caldera History 72 yo with seizure like activity Home Medication List Medication Instructions Recorded Confirmed Type aspirin 81 mg tablet,delayed 81 mg PO QAM 01/18/19 01/22/23 History release (Nora Low Dose Aspirin) amlodipine 5 mg tablet 5 mg PO QAM 03/29/22 01/22/23 History metoprolol tartrate 100 mg tablet 100 mg PO BID 03/29/22 01/22/23 History albuterol sulfate 90 mcg/actuation 2 puff inhalation Q6H PRN Wheezing 01/10/23 01/22/23 History aerosol inhaler clopidogrel 75 mg tablet (Plavix) 75 mg PO QAM 01/10/23 01/22/23 History fluticasone furoate 100 1 inh inhalation QAM 01/10/23 01/22/23 History mcg-vilanterol 25 mcg/dose inhalation powder (Breo Ellipta) oxycodone 5 mg tablet 5 mg PO Q4H PRN Pain 01/10/23 01/22/23 History apixaban 5 mg tablet (Eliquis) 5 mg PO BID #50 tabs 01/21/23 01/22/23 Rx daptomycin 350 mg/50 mL in 0.9 % 850 mg IV Q48H 01/22/23 01/22/23 History sodium chloride intravenous piggyback insulin regular human 100 unit/mL 1 sliding scale dose subcut ACHS 01/22/23 01/22/23 History injection solution (Humulin R PRN BLOOD SUGAR CONTROL Regular U-100 Insulin) naloxone 4 mg/actuation nasal 4 mg intranasal DIRECTED PRN 01/22/23 01/22/23 History spray (Narcan) Opioid Overdose Inpatient Medication List Acetaminophen (Acetaminophen 325 Mg Tab) 650 mg PO Q4H PRN PRN Reason: Pain or Fever Stop: 02/21/23 18:13 Last Admin: 01/23/23 04:33 Dose: 650 mg Documented By: JT Enteral Nutritional Formula (Novasource Renal 2.0 Judah 1000ml Bag) 1,000 ml OG UD GABY; Protocol Stop: 02/22/23 12:29 Last Admin: 01/23/23 13:54 Dose: 1,000 ml Documented By: LAURA Fluticasone/Vilanterol (Fluticasone/Vilanterol 100/25mcg 14 Puffs/Inhaler) 1 puffs INH QAM GABY Stop: 02/22/23 08:59 Last Admin: 01/23/23 07:33 Dose: Not Given Documented By: LAURA Pantoprazole Sodium 40 mg/ (Syringe) 10 mls @ 5 mls/min IV BID GABY Stop: 02/21/23 20:59 Last Admin: 01/23/23 07:48 Dose: 5 mls/min Documented By: Admin: 01/22/23 21:57 Dose: 5 mls/min Documented By: NAHUM Propofol (Diprivan) 1,000 mg in 100 mls @ 17.073 mls/hr IV .Q5H52M GABY; Protocol Stop: 01/25/23 21:44 Last Titration: 01/23/23 16:41 Dose: Infused Documented By: LAURA Co-signed By: SHADY Admin: 01/23/23 16:41 Dose: 35 mcg/kg/min, 17.1 mls/hr Documented By: LAURA Co-signed By: SHADY Titration: 01/23/23 14:57 Dose: 35 mcg/kg/min, 17.1 mls/hr Documented By: Admin: 01/23/23 10:25 Dose: 25 mcg/kg/min, 12.2 mls/hr Documented By: LAURA Co-signed By: SHADY Titration: 01/23/23 10:25 Dose: Infused Documented By: LAURA Co-signed By: SHADY Titration: 01/23/23 07:48 Dose: 25 mcg/kg/min, 12.2 mls/hr Documented By: Titration: 01/23/23 06:55 Dose: 20 mcg/kg/min, 9.8 mls/hr Documented By: NAHUM Co-signed By: LAURA Admin: 01/23/23 03:40 Dose: 20 mcg/kg/min, 9.8 mls/hr Documented By: NAHUM Co-signed By: KIM Titration: 01/23/23 03:40 Dose: Infused Documented By: NAHUM Co-signed By: KIM Titration: 01/22/23 23:56 Dose: 20 mcg/kg/min, 9.8 mls/hr Documented By: Admin: 01/22/23 21:58 Dose: 10 mcg/kg/min, 4.9 mls/hr Documented By: NAHUM Co-signed By: AMB Norepinephrine Bitartrate (Levophed/D5w) 4 mg in 250 mls @ 9.146 mls/hr IV .Q24H GABY; Protocol Stop: 02/21/23 21:59 Last Admin: 01/23/23 16:27 Dose: Not Given Documented By: Titration: 01/23/23 16:25 Dose: 0.03 mcg/kg/min, 9.1 mls/hr Documented By: Titration: 01/23/23 14:57 Dose: 0.05 mcg/kg/min, 15.2 mls/hr Documented By: Admin: 01/23/23 12:19 Dose: 0.03 mcg/kg/min, 9.1 mls/hr Documented By: LAURA Co-signed By: SHADY Titration: 01/23/23 12:19 Dose: Infused Documented By: LAURA Co-signed By: SHADY Titration: 01/23/23 06:55 Dose: 0.05 mcg/kg/min, 15.2 mls/hr Documented By: NAHUM Co-signed By: LAURA Titration: 01/23/23 02:37 Dose: 0.05 mcg/kg/min, 15.2 mls/hr Documented By: Titration: 01/23/23 00:59 Dose: 0.03 mcg/kg/min, 9.1 mls/hr Documented By: Admin: 01/22/23 22:17 Dose: 0.05 mcg/kg/min, 15.2 mls/hr Documented By: NAHUM Co-signed By: AMB Lactated Ringer's (Lr) 1,000 mls @ 125 mls/hr IV .Q8H GABY Stop: 02/22/23 09:29 Last Infusion: 01/23/23 15:00 Dose: 15 mls/hr Documented By: Admin: 01/23/23 10:24 Dose: 125 mls/hr Documented By: LAURA Heparin Sodium/Dextrose (Heparin Sodium/Dextrose) 25,000 units in 500 mls @ 17 mls/hr IV .Q24H GABY; Protocol Stop: 02/22/23 09:44 Last Admin: 01/23/23 11:08 Dose: 850 units/hr, 17 mls/hr Documented By: LAURA Co-signed By: MICHELLE Miscellaneous (Icu Protocol For Hyperglycemia) 1 each N/A ACHS GABY Stop: 01/24/23 20:59 Last Admin: 01/23/23 16:26 Dose: 1 each Documented By: Admin: 01/23/23 11:34 Dose: 1 each Documented By: Admin: 01/23/23 07:48 Dose: 1 each Documented By: Admin: 01/22/23 21:57 Dose: 1 each Documented By: NAHUM Discontinued Medications Albuterol (Albut/Ipratrop 3mg/0.5mg Neb 3 Ml Vial) Confirm Administered Dose 3 ml .ROUTE .STK-MED ONE Stop: 01/22/23 13:23 Last Admin: 01/22/23 14:02 Dose: Not Given Documented By: IZABEL Albuterol (Albut/Ipratrop 3mg/0.5mg Neb 3 Ml Vial) Confirm Administered Dose 3 ml .ROUTE .STK-MED ONE Stop: 01/22/23 22:00 Last Admin: 01/22/23 22:20 Dose: 3 ml Documented By: RONIT Heparin Sodium/Dextrose (Heparin Iv Adult Wt-Based Low-Dose *No* Bolus Protocol) 1 each IV ONE STA; Protocol Stop: 01/22/23 16:13 Last Admin: 01/22/23 18:21 Dose: Not Given Documented By: LAURA Cefepime HCl (Maxipime) 2,000 mg in 20 mls @ 5 mls/min IV NOW STA; Protocol Stop: 01/22/23 14:50 Last Admin: 01/22/23 15:05 Dose: 5 mls/min Documented By: ELSY Sodium Chloride (Nss) 500 mls @ 999 mls/hr IV .Q31M ONE Stop: 01/22/23 15:17 Last Infusion: 01/22/23 16:00 Dose: Infused Documented By: Admin: 01/22/23 15:22 Dose: 999 mls/hr Documented By: ELSY Vancomycin HCl 1,750 mg/ (Sodium Chloride) 535 mls @ 200 mls/hr IV NOW STA Stop: 01/22/23 18:21 Last Infusion: 01/22/23 19:20 Dose: Infused Documented By: Admin: 01/22/23 16:34 Dose: 200 mls/hr Documented By: ELSY Lactated Ringer's (Lr) 1,000 mls @ 999 mls/hr IV .Q1H1M ONE Stop: 01/22/23 16:48 Last Infusion: 01/22/23 17:35 Dose: Infused Documented By: Admin: 01/22/23 15:59 Dose: 999 mls/hr Documented By: ELSY Heparin Sodium/Dextrose (Heparin Sodium/Dextrose) 25,000 units in 500 mls @ 0.02 mls/hr IV .Q24H GABY; Protocol Stop: 02/21/23 16:29 Last Admin: 01/22/23 18:21 Dose: Not Given Documented By: LAURA Cefepime HCl 1,000 mg/ Syringe 10 mls @ 5 mls/min IV Q12H GABY; Protocol Stop: 01/25/23 02:59 Last Admin: 01/23/23 03:57 Dose: 5 mls/min Documented By: NAHUM Parenteral Electrolytes (Plasma-Lyte A Ph 7.4) 1,000 mls @ 125 mls/hr IV .Q8H GABY Stop: 02/21/23 18:29 Last Infusion: 01/23/23 10:30 Dose: Infused Documented By: Admin: 01/23/23 02:35 Dose: 125 mls/hr Documented By: Infusion: 01/23/23 02:35 Dose: Infused Documented By: Admin: 01/22/23 18:51 Dose: 125 mls/hr Documented By: LAURA Lactated Ringer's (Lr) 500 mls @ 999 mls/hr IV .Q31M ONE Stop: 01/22/23 22:29 Last Infusion: 01/22/23 22:50 Dose: Infused Documented By: Admin: 01/22/23 22:16 Dose: 999 mls/hr Documented By: NAHUM Vancomycin HCl 1,250 mg/ (Sodium Chloride) 275 mls @ 200 mls/hr IV NOW ONE Stop: 01/23/23 12:52 Last Infusion: 01/23/23 13:55 Dose: Infused Documented By: Admin: 01/23/23 12:19 Dose: 200 mls/hr Documented By: LAURA Lorazepam 3 mg/ Syringe 3 mls @ 2 mls/min IV NOW STA Stop: 01/23/23 12:11 Last Admin: 01/23/23 12:19 Dose: 2 mls/min Documented By: LAURA Fosphenytoin Sodium 1,248 mgpe (/ Sodium Chloride) 74.96 mls @ 420 mls/hr IV ONE ONE Stop: 01/23/23 14:40 Last Infusion: 01/23/23 14:59 Dose: Infused Documented By: Admin: 01/23/23 14:39 Dose: 420 mls/hr Documented By: LAURA Piperacillin Sod/Tazobactam (Sod 4.5 gm/ Dextrose) 100 mls @ 200 mls/hr IV NOW ONE; Protocol Stop: 01/23/23 15:14 Last Admin: 01/23/23 17:04 Dose: 200 mls/hr Documented By: LAURA Influenza Virus Vaccine (Influenza Vaccine High-Dose (Hd-Iiv4) Pf 65+ 0.7ml Syr) 0.7 ml IM .ONCE ONE Stop: 01/22/23 18:34 Last Admin: 01/23/23 07:32 Dose: Not Given Documented By: LAURA Lorazepam (Lorazepam 2 Mg/1 Ml Vial) Confirm Administered Dose 4 mg .ROUTE .STK- MED ONE Stop: 01/23/23 12:15 Last Admin: 01/23/23 12:18 Dose: Not Given Documented By: LAURA Miscellaneous (Rapid Sequence Induction Bag) Confirm Administered Dose 1 each N/A .STK-MED ONE Stop: 01/22/23 21:18 Last Admin: 01/23/23 07:32 Dose: Not Given Documented By: LAURA Norepinephrine Bitartrate (Norepinephrine/D5w 4 Mg/250 Ml) Confirm Administered Dose 4 mg IV .STK-MED ONE Stop: 01/22/23 21:17 Last Admin: 01/22/23 21:59 Dose: Not Given Documented By: NAHUM Propofol (Propofol Iv Emulsion 10 Mg/Ml 100 Ml Vial) Confirm Administered Dose 1,000 mg IV .STK-MED ONE Stop: 01/22/23 21:32 Last Admin: 01/22/23 21:59 Dose: Not Given Documented By: NAHUM Description This is a 21 electrode EEG with a single channel dedicated to limited EKG. The electrodes were placed in accordance with the International 10-20 system. Interpretation The predominant background activity consists of an irregular 7 Hz activity, of up to 40 mV in amplitude,seen symmetrically distributed over the posterior head regions bilaterally, spreading anteriorly lasting 3-5 seconds. In addition, there was very low amplitude rhythms diffusely admixed,lasting for a second or two. This alteration of higher amplitude and lower amplitude activity continued throughout the entire recording. There was no attenuation of background with eye-opening and alerting procedures. The patient had episode of left arm movement in the early portion of the recording. There was no electrocerebral accompaniment. Photic stimulation was performed and elicited no change in the background activity and no abnormal responses were seen. Hyperventilation was not performed. A minimal amount of muscle and movement artifact activity contaminated the recording and did not hinder interpretation to any significant degree. Throughout the waking portion of the recording, no focal abnormalities or potentially epileptogenic discharges were seen. In summary, this EEG was abnormal, showing moderate diffuse slowing of the background. No focal abnormalities or potentially epileptogenic discharges were seen, and the patient even had a left upper extremity movement with no electrocerebral accompaniment.. Clinical Correlation The moderate slowing is consistent with an encephalopathy, which can be due to a wide variety of causes. The absence of potentially epileptogenic activity does not exclude a seizure disorder, since interictally, EEGs can be normal. However, the patient had some typical clinical movements (suggestive for seizure ) that showed no seizure activity on EEG today. Clinical correlation is required. [facility] EEG Procedure Codes Indication for Procedure (1) Seizure-like activity: Neurology Neurology: [id number] EEG include record awake & drowsy
[2023-01-23 19:00] LABS: Partial Thromboplastin Ratio 2.2
[2023-01-23 19:01] LABS: Partial Thromboplastin Time 60.7 Seconds (21.0-31.0)
--- NOTE | 2023-01-23 20:04 | Electrocardiogram Report ---
Test Reason : Blood Pressure : / mmHG Vent. Rate : 086 BPM Atrial Rate : 086 BPM P-R Int : 172 ms QRS Dur : 092 ms QT Int : 376 ms P-R-T Axes : 067 -79 084 degrees QTc Int : 449 ms Poor data quality, interpretation may be adversely affected Normal sinus rhythm Left axis deviation Abnormal ECG When compared with ECG of 20-JAN-2023 03:07, Sinus rhythm has replaced Atrial fibrillation Vent. rate has decreased BY 42 BPM Confirmed by William Carlin ([id number]) on 01/23/2023 8:04:06 PM Referred By: REFERRED SELF Confirmed By:William Carlin
[2023-01-24] MEDS ORDERED: PIPERACILLIN/TAZOBACTAM 4.5 GM in DEXTROSE 5% MINI-B 100 ML IV SCH (01:00)
[2023-01-24 01:59] LABS: Partial Thromboplastin Ratio 1.2; Partial Thromboplastin Time 35.1 Seconds (21.0-31.0)
[2023-01-24] MEDS ORDERED: HEPARIN SOD (PORCINE) 1000 UNIT/ML IV ONE (03:00)
[2023-01-24] MEDS: propofoL 1,000 MG/100 ML VIAL IV SCH ×7 (03:59→23:53)
[2023-01-24 04:27] LABS: Basophils # (auto) 0.01 K/uL (0.00-0.20); Basophils % (auto) 0.1 %; Eosinophils # (auto) 0.16 K/uL (0.00-0.50); Eosinophils % (auto) 2.1 %; Hematocrit (blood only) 24.3 % (42.0-52.0); Hemoglobin 7.8 g/dl (14.0-18.0); Immature Granulocytes # (auto) 0.06 K/uL (0.01-0.20); Immature Granulocytes % (auto) 0.8 %; Lymphocytes # (auto) 0.99 K/uL (1.20-3.40); Mean Corpuscular Hgb Conc 32.1 g/dL (32.0-36.0); Mean Corpuscular Volume 90.3 fL (80.0-100.0); Mean Platelet Volume 10.3 fL (9.4-12.4); Monocytes # (auto) 0.31 K/uL (0.11-0.59); Monocytes % (auto) 4.1 %; Neutrophils # (auto) 6.09 K/uL (1.40-6.50); Neutrophils % (auto) 79.9 %; Platelet Count 286 K/uL (130-400); RDW Coefficient of Variation 15.8 % (11.5-14.5); RDW Standard Deviation 51.8 fL (36.4-46.3); Red Blood Count 2.69 M/uL (4.70-6.10); White Blood Count 7.62 K/ul (4.8-10.8)
[2023-01-24 04:47] LABS: BUN Creatinine Ratio 21.7 (10-20); Calcium 8.3 mg/dl (8.6-10.3); Creatinine Clr Calc Pharmacy 22.7 ml/min; Est GFR (African American) 22.9 ml/min; Est GFR (Non-African American) 19.8 ml/min; Potassium 3.7 mmol/L (3.5-5.1)
[2023-01-24 05:15] LABS: Hypochromasia Present
[2023-01-24] MEDS: LACTATED RINGER'S 1,000 ML IV SCH ×3 (06:17→15:55)
[2023-01-24] MEDS: ICU Protocol for HYPERglycemia SCH ×3 (07:37→15:55)
--- NOTE | 2023-01-24 07:51 | Critical Care Progress Note ---
Date of Service January 24, 2023 Assessment & Plan (1) Acute renal disease: (2) Endotracheally intubated: (3) Complicated UTI (urinary tract infection): (4) Uremia: (5) Acute encephalopathy: (6) Acute respiratory failure with hypoxia: (7) Acute UTI: (8) AMS (altered mental status): (9) Acute respiratory failure with hypoxia and hypercarbia: (10) Gram-positive bacteremia: (11) Anemia: (12) Pseudoaneurysm of femoral artery following procedure: Plan Reason Critically Ill: 72-year-old male here with a history significant for recent gram-positive cocci bacteremia, respiratory arrest and [place] (discharged on 01/21/23) who was admitted for altered mental status and hypoxemia. Neuro - Encephalopathy -[facility] ICU: Positive -Sedation: Propofol, weaned off this a.m. for spontaneous breathing trail but later restarted propofol at rate of 20 due to tachypnea -MRI brain previously discussed with family, family deferred MRI at this time. Will discuss plan regarding additional imaging with family. -EEG completed: moderate diffuse slowing of the background, no focal abnormalities or potentially epileptogenic discharges. Neurology consulted, appreciate recommendations. Cardiac - Hx of thoracic aortic aneurysm repair, atrial fibrillation, hx of DVT -Maintain MAPS above 65 mmHg -Pressors discontinued on 01/23/23 -Echo (01/13/23) mild concentric LVH, normal LV and RV function -Continue heparin drip due to history of afib, prior DVT -No clear evidence of pneumonia. Thoracic aortic endovascular stent graft is in place with mild aneurysmal dilation of the ascending thoracic aorta which was considered stable to slightly increased since his prior CT measuring 5.1 cm Respiratory - Acute respiratory failure -Intubated overnight on 01/23/2023 due to worsening respiratory acidosis -Remains of ventilator at present -CT chest w/ con relatively contraindicated due to concern of prior anaphylactic-like reaction. CT chest w/o IV contrast was performed on admission which showed emphysema/secretions in the trachea, mainstem bronchi. GI - -Initiated tube feeds -Protonix 40 BID Renal/Lytes - [place], hx of bilateral renal infarct and hx of renal cell carcinoma status post partial nephrectomy (2014) -Underwent hemodialysis during last admission due to [place] secondary to bilateral renal infarcts and IV contrast -Renal artery stenting performed at [facility] 12/23/22 -Nephrology consulted, appreciate recommendations -Cr improving from 3.88 on admission, 2.99 today with BUN 65 -Continue with IV fluids -Replace lytes as needed - -Acosta catheter placed on 01/22/23 -Urine cx growing klebsiella oxytoca -Monitor I's & O's Endo - -TSH within normal limits -Follow ICU hyperglycemic protocols Heme - -History of anemia of chronic disease. Hgb today of 7.8 -Received 1u PRBCs on 01/22/23 -Continue to monitor CBC, transfuse for Hgb <7 ID - -Sputum, blood, urine cultures collected -Urine cx growing klebsiella oxytoca -Blood, sputum cultures NGTD -Continue Zosyn, Vancomycin (Cefepime discontinued in the last day). Infectious disease consulted, awaiting further recommendations for antibiotic coverage. -Bacteremia was thought to be possibly related to HD catheter, but catheter tip was negative. ID consulted due to bacteremia. Lines/IV Access - -Right single-lumen PICC line in place from recent hospitalization -Acosta catheter in place (01/22/2023) -18-gauge peripheral IV in the left antecubital fossa DVT Prophylaxis - -SCDs, Heparin drip Thank you for allowing us to be part of this patient's care. Please refer to Dr. Mathews's documentation for any further recommendations. Admission and Anticipated Discharge Date Admission Date: January 22, 2023 Subjective Patient seen and examined at bedside. No meaningful ROS/HPI obtained from patient due to mental status. Review of Systems Review of Systems: Unobtainable due to mental status Physical Exam Constitutional: average body habitus and + mechanically ventilated Eyes: PERRL; no conjunctival abnormality ENMT: Ears: no external ear abnormality Nose: no external nose abnormality Moist mucous membranes Respiratory: Diminished lung sounds at anterior lung lentz, patient intubated Cardiovascular: Rate/Rhythm: regular rate and regular rhythm Extremities: no edema Gastrointestinal (Abdomen): Inspection/Auscultation: abdomen not distended Percussion/Palpation: abdomen soft; no guarding +bowel sounds present Skin: no rashes, warm and dry Neurologic: Responds to noxious stimuli, unable to follow verbal commands. Intermittent myoclonic jerks Genitourinary: Acosta catheter in place Results & Data Results & Data Vital Signs (Past 12 Hours) Vital Signs Temp Pulse Resp BP Pulse Ox O2 Del Method FiO2 01/24/23 07:19 76 22 94 30 01/24/23 07:00 151/86 H 01/24/23 07:00 37.4 C 79 24 92 01/24/23 06:30 37.2 C 77 21 95 01/24/23 06:00 129/71 01/24/23 06:00 37.2 C 71 20 90 01/24/23 05:30 37.1 C 76 18 94 01/24/23 05:00 37.1 C 70 19 92 01/24/23 05:00 120/76 01/24/23 04:30 37.0 C 69 18 93 01/24/23 04:00 118/71 01/24/23 04:00 37.0 C 68 18 92 01/24/23 04:00 30 01/24/23 03:30 36.9 C 71 18 92 01/24/23 03:15 74 18 93 30 01/24/23 03:00 36.9 C 72 18 95 01/24/23 03:00 138/84 01/24/23 02:30 36.9 C 71 18 94 01/24/23 02:00 36.9 C 70 19 94 01/24/23 02:00 128/78 01/24/23 01:30 37.0 C 72 18 94 01/24/23 01:00 37.1 C 74 18 93 01/24/23 01:00 140/80 01/24/23 00:30 37.0 C 74 18 93 01/24/23 00:00 120/74 01/24/23 00:00 37.0 C 72 22 92 01/24/23 00:00 30 01/24/23 00:00 73 01/23/23 23:30 37.0 C 74 20 92 01/23/23 23:30 74 18 94 30 01/23/23 23:00 37.1 C 73 24 93 01/23/23 23:00 115/66 01/23/23 22:30 37.1 C 75 18 93 01/23/23 22:00 37.1 C 74 18 94 01/23/23 22:00 123/78 01/23/23 21:30 37.1 C 74 18 91 01/23/23 21:00 37.2 C 73 18 01/23/23 21:00 87/67 L 01/23/23 20:30 37.3 C 76 18 01/23/23 20:08 77 19 97 30 01/23/23 20:00 37.3 C 77 18 97 01/23/23 20:00 142/85 H 01/23/23 20:00 30 01/23/23 20:00 Mechanical Vent Resident Activity Tracking Resident Involvement: Resident Care Provided Care Provided: Adult Hospital Medicine (8) AMS (altered mental status) Altered mental status type: disorientation Qualified Code(s): R41.0 - Disorientation, unspecified
--- NOTE | 2023-01-24 09:35 | Neurology Consultation ---
Date of Consultation January 24, 2023 Assessment & Plan (1) Acute encephalopathy: Plan Multifactorial encephalopathy in the context of acute respiratory failure with hypoxia, gram-positive bacteremia, acute kidney injury, history of atrial fibrillation. No evidence of seizure activity on EEG completed yesterday. Low index of suspicion for subclinical seizures or occult stroke at this time. A noncontrast brain MRI would be useful to further exclude acute or subacute infar ct although patient's nurse informed me that family has refused this test. Consider obtaining a repeat noncontrast CT of the head to further exclude an evolving infarct. Patient's clinical presentation not suggestive of meningitis or encephalitis, lumbar puncture not needed at this time, and would be of low yield as patient is on antimicrobial therapy. Continue supportive medical care. No further immediate neurologic recommendations. History of Present Illness Reason for Consultation: encephalopathy, seizures? Requesting Physician: Werner Attending Physician: Deanne Silva MD History of Present Illness The patient is a 72-year-old male who was admitted to the [facility] 2 days ago, transferred from [facility] for reduced responsiveness and hypoxia. He had been discharged from [facility] the day prior, on January 21 after cardiopulmonary arrest, gram-positive bacteremia, recent thoracic aneurysm repair, atrial fibrillation, on apixaban. He has been admitted with acute respiratory failure with hypoxia and is on the mechanical ventilator. He remains on treatment for gram-positive bacteremia, he is currently receiving heparin in light of his atrial fibrillation, he has been seen by nephrology regarding acute kidney injury. Neurology was consulted regarding encephalopathy with concern for possible occult seizure activity. EEG completed yesterday revealed moderate slowing consistent with encephalopathy, no epileptiform abnormalities. CT of the head completed January 22 was negative for hemorrhage or acute process. I did independently review the images, there is chronic small vessel ischemic disease and mild to moderate generalized atrophy with an element of ventriculomegaly. The patient remains on the mechanical ventilator this morning, his propofol has been held. See examination below for further details. Allergies Allergy/AdvReac Type Severity Reaction Status Date / Time Iodinated Contrast Media Allergy Severe Anaphylaxis Verified 01/22/23 14:52 morphine Allergy Intermediate hives Verified 01/22/23 14:52 Penicillins Allergy Intermediate skin Verified 01/22/23 14:52 streaking tetanus toxoid, adsorbed Allergy Intermediate local skin Verified 01/22/23 14:52 irritation meperidine AdvReac Intermediate hallucinations, Verified 01/22/23 14:52 agitation Home Medications Medication Instructions Recorded Confirmed Type aspirin 81 mg tablet,delayed 81 mg PO QAM 01/18/19 01/22/23 History release (Nora Low Dose Aspirin) amlodipine 5 mg tablet 5 mg PO QAM 03/29/22 01/22/23 History metoprolol tartrate 100 mg tablet 100 mg PO BID 03/29/22 01/22/23 History albuterol sulfate 90 mcg/actuation 2 puff inhalation Q6H PRN Wheezing 01/10/23 01/22/23 History aerosol inhaler clopidogrel 75 mg tablet (Plavix) 75 mg PO QAM 01/10/23 01/22/23 History fluticasone furoate 100 1 inh inhalation QAM 01/10/23 01/22/23 History mcg-vilanterol 25 mcg/dose inhalation powder (Breo Ellipta) oxycodone 5 mg tablet 5 mg PO Q4H PRN Pain 01/10/23 01/22/23 History apixaban 5 mg tablet (Eliquis) 5 mg PO BID #50 tabs 01/21/23 01/22/23 Rx daptomycin 350 mg/50 mL in 0.9 % 850 mg IV Q48H 01/22/23 01/22/23 History sodium chloride intravenous piggyback insulin regular human 100 unit/mL 1 sliding scale dose subcut ACHS 01/22/23 01/22/23 History injection solution (Humulin R PRN BLOOD SUGAR CONTROL Regular U-100 Insulin) naloxone 4 mg/actuation nasal 4 mg intranasal DIRECTED PRN 01/22/23 01/22/23 History spray (Narcan) Opioid Overdose Patient History Medical History Acute renal disease Endotracheally intubated Complicated UTI (urinary tract infection) Uremia Acute encephalopathy Benign prostatic hyperplasia with urinary obstruction Elevated PSA Malignant neoplasm of kidney excluding renal pelvis Urethral stricture History of abdominal aortic aneurysm (AAA) s/p repair + stent (2008) CAD (coronary artery disease) stents x 2 (2000) History of kidney cancer left kidney (2014) s/p tumor removal (s/p partial left nephrectomy) BPH (benign prostatic hyperplasia) GERD (gastroesophageal reflux disease) controlled Diabetes mellitus, type 2 diet controlled History of skin cancer face Hx of myocardial infarction 2000 - stents x 2 Hypertension Hyperlipidemia Renal mass, left Surgical History Status post insertion of iliac artery stent (from trauma from endovascular procedure per records) Hx of colonoscopy History of AAA (abdominal aortic aneurysm) repair + stent (2008) Hx of hernia repair Hx of abdominal surgery d/t peritonitis History of appendectomy History of kidney surgery Left partial robotic nephrectomy, hand assisted laparoscopy: 09/24/14: Grade I view, MAC#4, ETT 8 at [facility] Family History Brother Family history of diabetes mellitus Social History Smoking Status: Former smoker Tobacco Type: Cigarettes Second Hand Exposure: No; Do You Dip or Chew Tobacco: No; Hx Alcohol Use: No Hx Substance Use: No Preferred Language: [place] Communication Ability: Unable Stem Shaper Required: No Beliefs That Will Affect Care: None Current Living Situation: Rehab Current Living Situation Comment: From [facility] Feels Safe at Home: Yes Assistive Devices: Cane Review of Systems Review of Systems: Unobtainable due to reduced consciousness Exam (Neuro) Constitutional: + mechanically ventilated Eyes: PERRL; no nystagmus Neurologic: Oriented to:: negative Person, Place or Time Attention: Other (Patient winces at times to tactile and noxious stimulation. No verbal response, does not follow commands.); negative Span Intact or Concentration Intact Cranial Nerves: Normal II, III, IV, , V and VII Hypertonicity: Arms and Legs Muscle Bulk/Involuntary Movements: No Involuntary Movements Details: Unable to elicit oculocephalic reflexes. Blink reflex intact. Winces at times as above. Minimal withdrawal to noxious stimulation. Generally increased tone with increased extensor tone for the arms and legs bilaterally. Results & Data Vital Signs (Past 12 Hours) Vital Signs Temp Pulse Resp BP Pulse Ox FiO2 01/24/23 07:19 76 22 94 30 01/24/23 07:00 151/86 H 01/24/23 07:00 37.4 C 79 24 92 01/24/23 06:30 37.2 C 77 21 95 01/24/23 06:00 129/71 01/24/23 06:00 37.2 C 71 20 90 01/24/23 05:30 37.1 C 76 18 94 01/24/23 05:00 37.1 C 70 19 92 01/24/23 05:00 120/76 01/24/23 04:30 37.0 C 69 18 93 01/24/23 04:00 118/71 01/24/23 04:00 37.0 C 68 18 92 01/24/23 04:00 30 01/24/23 03:30 36.9 C 71 18 92 01/24/23 03:15 74 18 93 30 01/24/23 03:00 36.9 C 72 18 95 01/24/23 03:00 138/84 01/24/23 02:30 36.9 C 71 18 94 01/24/23 02:00 36.9 C 70 19 94 01/24/23 02:00 128/78 01/24/23 01:30 37.0 C 72 18 94 01/24/23 01:00 37.1 C 74 18 93 01/24/23 01:00 140/80 01/24/23 00:30 37.0 C 74 18 93 01/24/23 00:00 120/74 01/24/23 00:00 37.0 C 72 22 92 01/24/23 00:00 30 01/24/23 00:00 73 01/23/23 23:30 37.0 C 74 20 92 01/23/23 23:30 74 18 94 30 01/23/23 23:00 37.1 C 73 24 93 01/23/23 23:00 115/66 01/23/23 22:30 37.1 C 75 18 93 01/23/23 22:00 37.1 C 74 18 94 01/23/23 22:00 123/78 01/23/23 21:30 37.1 C 74 18 91 Laboratory Results WBC 7.62, hemoglobin 7.8, hematocrit 24.3, platelet count 286, sodium 143, potassium 3.7, BUN 65, creatinine 2.99, glucose 177, calcium 8.3, magnesium 2.2, AST 42, ALT [address] of the head is as described above, I independently reviewed the images. An electrocardiogram revealed a normal sinus rhythm, 86 bpm. An echocardiogram completed January 13, 2023 revealed normal left ventricular systolic function, mild concentric LVH Coding Level of Care Code 90990 INT INP/OBS CARE 3/75MIN Diagnoses Acute encephalopathy G93.40 Time Spent (min) 75
[2023-01-24] MEDS: PIPERACILLIN/TAZOBACTAM 4.5 GM in DEXTROSE 5% MINI-B 100 ML IV SCH ×2 (09:49→15:58)
[2023-01-24] MEDS: CLOPIDOGREL BISULFATE 75 MG TAB PO SCH (09:49)
[2023-01-24] MEDS: HEPARIN SODIUM/DEXTROSE 25,000 UNITS/500 ML BAG IV SCH ×2 (09:50→11:42)
[2023-01-24] MEDS: FLUTICASONE/VILANTEROL 100/25MCG 14 PUFFS/INHALER INH SCH (09:50)
[2023-01-24] MEDS: ASPIRIN 81 MG CHEW PO SCH (09:50)
[2023-01-24] MEDS: PANTOprazole 40 MG in SYRINGE 0 ML IV SCH ×2 (09:51→21:19)
[2023-01-24 10:12] LABS: Partial Thromboplastin Ratio 1.4; Partial Thromboplastin Time 38.7 Seconds (21.0-31.0)
--- NOTE | 2023-01-24 11:18 | Pharmacy Report ---
Pharmacy PK ABX Note - Date of Service January 24, 2023 - Assessment and Plan Assessment 01/24 * Cefepime adjusted to zosyn yesterday * SCr continues to downtrend but will continue to dose by levels * Level 21.1 mcg/mL this AM- will give additional 1x dose later today * Await ID consult for further recommendations 01/23 * 72 yo male who was discharged from the hospital 01/21/2023 due to MRSE and E. faecalis bacteremia on daptomycin, respiratory arrest and [place]. Readmitted 01/22 due to altered mental status and hypoxemia, currently being treated for bacteremia, HAP, and UTI * Dapto switched to vanco for better pulmonary coverage * Cefepime started * ID consulted * Unclear what new baseline SCr may be after recent CAR[place]INA. SCr is trending down today to 3.4. Will dose vancomycin via level. * Level of 16.1 mcg/mL this AM likely therapeutic. Will give additional one- time dose of vancomycin today and repeat random level tomorrow AM Plan Vancomycin * 750mg IV x1 @ 12:00 * Random level in AM Pharmacy will continue to follow and will adjust dose/frequency as necessary. Thank you. Pharmacy has transitioned to AUC monitoring for vancomycin. AUC/DAYNA is the preferred PK/PD target and is associated with decreased risk of nephrotoxicity compared to traditional trough targets.
[2023-01-24] MEDS: ACETAMINOPHEN 325 MG TAB PO PRN (11:35)
[2023-01-24] MEDS ORDERED: VANCOMYCIN HCL 750 MG in SODIUM CHLORIDE 0.9% 250 ML IV SCH (12:00)
--- NOTE | 2023-01-24 12:09 | Hospitalist Progress Note ---
Date of Service January 24, 2023 Assessment & Plan (1) Acute respiratory failure with hypoxia: Plan: Acute hypoxic respiratory failure Presents on nonrebreather SPO2 sats in the 70s with increased tachypnea ABG revealed respiratory acidosis, patient intubated and started on broad- spectrum antibiotic after he failed BiPAP - CTchest: No consolidation suggestive of pneumonia. Emphysema. Moderate secretions of the trachea and mainstem bronchi, No leukocytosis, procalcitonin elevated Continue cefepime/vancomycin. ID consultation Patient was recently admitted to this facility with generalized weakness, after patient had a endovascular graft for aortic aneurysm, and other facility, the course was complicated with persistent gram-positive bacteremia, cardiopulmonary arrest, patient discharged to rehab facility after PICC line placed on 6 weeks course of treatment with daptomycin (2) Acute encephalopathy: Plan: Etiology is uncertain, EEG showed disorganized background with slowing but no epileptiform waves Neurologist on consult, pressure recommendations,, there may be plans for MRI (3) Gram-positive bacteremia: Plan: History of gram-positive bacteremia - DIPLOMATIC OFFICER, S. haemolyticus, E facalis cultures on prior admit. Recurrent DIPLOMATIC OFFICER bacteremia 01/12-01/13 vanc/dapto sensitive. Endograft at risk of infectious, but no clear infection durin gadmit Repeat blood cultures pending Discharged on daptomycin started 01/12, patient did receive Zosyn 01/12 and 01/13. Was recommended to complete 6 weeks of daptomycin, and dosing was increased to 10 mg/kg's for Enterococcus with DAYNA of 2. With hypoxia and concern for pulmonary involvement Dapto not appropriate for initial treatment, (4) Acute UTI: Plan: - vs contaminated urine. Unable to obtain subjective from pt at bedside. Covered by abx as above (5) Atrial fibrillation: Plan: History of A-fib, recent cardiopulmonary arrest DOAC converted to heparin while inpatient and critically ill Admitting EKG normal sinus rhythm without territorial signs of ischemia Following contrast exposure despite premedication at prior hospitalization. Likely 2/2 critical illness, but cannot exclude contrast allergy. Patient is a nticoagulated so risk of PE is low, will convert apixaban to heparin while (6) CAROLINA (acute kidney injury): Plan: CAROLINA, transient HD dependence CAROLINA with bilateral renal infarcts and IV contrast administration at last hospitalization Last hemodialysis 01/14/2023, creatinine was stable at around 3.4 since Right IJ was removed 01/18/2023. No further dialysis was anticipated at that time Admitting creatinine is uptrending at 3.8. Potassium is upper limit of normal. No emergent indication for dialysis on admission - nephrology consulted Anemia Normocytic Last hemoglobin 7.7, 7.5 on readmission. Recently ranging from 78 0.5 and in the setting of CKD. No active bleeding appreciated at time of admission Transfusion threshold of 7.0. Type and cross ordered (7) GERD (gastroesophageal reflux disease): Plan: - PPI (8) Diabetes mellitus, type 2: Plan: ICU hyperglycemia per (9) CAD (coronary artery disease): Plan: - With history of stents Troponin is downtrending from prior, 27.5. Trended. No ischemic findings on EKG, Plan DVT prophylaxis: On heparin Diet: N.p.o. Disposition: ICU CODE STATUS: Full code, family is discussing whether patient would want to convert to DNR/DNI given current circumstance Admission and Anticipated Discharge Date Admission Date: January 22, 2023 Subjective Patient intubated and ventilated Review of Systems Review of Systems: Unable to obtain, intubated and ventilated Physical Exam Physical Exam: The patient is Intubated and ventilated HEENT--PERRL, EOMI, mucous membranes and oropharynx mildly dry Neck--supple. No JVD. No bruits. Thyroid normal, trachea midline, no adenopathy. Heart--normal S1 and S2. No murmurs, rubs or gallops. Lungs--clear bilaterally, no respiratory distress, no accessory muscle use. Abdomen--normal bowel sounds and soft. Mild epigastric and left sided abdominal pain Extremities--no cyanosis or clubbing. No edema. Dermatologic--normal skin turgor, normal color, no abnormal lymph nodes, no rash. Neurologic--unable to fully assess. Rheumatologic--normal range of motion. Psychiatric--unable to obain Results & Data Results & Data Vital Signs (Past 12 Hours) Vital Signs Temp Pulse Resp BP Pulse Ox O2 Del Method FiO2 01/24/23 11:00 100.4 F H 77 20 95 01/24/23 11:00 130/77 01/24/23 10:00 136/78 01/24/23 10:00 100.4 F H 79 23 95 01/24/23 10:00 80 21 92 30 01/24/23 09:00 100.0 F H 81 42 H 95 01/24/23 09:00 160/90 H 01/24/23 08:00 99.5 F 75 32 H 95 01/24/23 08:00 147/87 H 01/24/23 08:00 30 01/24/23 08:00 Mechanical Vent 30 01/24/23 07:19 76 22 94 30 01/24/23 07:00 151/86 H 01/24/23 07:00 99.3 F 79 24 92 01/24/23 06:30 99.0 F 77 21 95 01/24/23 06:00 129/71 01/24/23 06:00 99.0 F 71 20 90 01/24/23 05:30 98.8 F 76 18 94 01/24/23 05:00 98.8 F 70 19 92 01/24/23 05:00 120/76 01/24/23 04:30 98.6 F 69 18 93 01/24/23 04:00 118/71 01/24/23 04:00 98.6 F 68 18 92 01/24/23 04:00 30 01/24/23 03:30 98.4 F 71 18 92 01/24/23 03:15 74 18 93 30 01/24/23 03:00 98.4 F 72 18 95 01/24/23 03:00 138/84 01/24/23 02:30 98.4 F 71 18 94 01/24/23 02:00 98.4 F 70 19 94 01/24/23 02:00 128/78 01/24/23 01:30 98.6 F 72 18 94 01/24/23 01:00 98.8 F 74 18 93 01/24/23 01:00 140/80 01/24/23 00:30 98.6 F 74 18 93 PG Care Time/CCT Total # of Minutes Spent Total Time Spent with Patient: Total time spent is greater than 50% in coordination of care (as documented) at patient's floor/unit and/or counseling patient: Coding Level of Care Code 12651 SUB INP/OBS CARE 2/35MIN Diagnoses Acute respiratory failure with hypoxia J96.01 Acute encephalopathy G93.40 Gram-positive bacteremia R78.81 Acute UTI N39.0 Atrial fibrillation I48.91 CAR[place] (acute kidney injury) N17.9 GERD (gastroesophageal reflux disease) K21.9 Type 2 diabetes mellitus with other circulatory complication, without long-term current use of insulin E11.59 Diabetes mellitus exterminator helper termite insulin use: without senior care use Diabetes mellitus complication status: with circulatory complication Diabetes mellitus complication detail: with other circulatory complications Coronary artery disease involving [place] coronary artery of [place] heart without angina pectoris I25.10 Coronary Disease-Associated Artery/Lesion type: [place] artery [place] vs. transplanted heart: [place] heart Associated angina: without angina Time Spent (min) 35 (8) Diabetes mellitus, type 2 Diabetes mellitus senior care insulin use: without senior care use Diabetes mellitus complication status: with circulatory complication Diabetes mellitus complication detail: with other circulatory complications Qualified Code(s): E11.59 - Type 2 diabetes mellitus with other circulatory complications (9) CAD (coronary artery disease) Coronary Disease-Associated Artery/Lesion type: [place] artery [place] vs. transplanted heart: [place] heart Associated angina: without angina Qualified Code(s): I25.10 - Atherosclerotic heart disease of [place] coronary artery without angina pectoris
--- NOTE | 2023-01-24 13:00 | Infectious Disease Consult ---
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 He underwent thoracic endovascular aortic repair (TEVAR) on 12/23/22 with [place] endograft. He required renal stenting, kidney function worsened and was started on HD via RIJ permacath. More recently he was admitted to [facility] on 01/10 for placement. His course c/b cardiac arrest on 01/12 after contrast and scans requiring intubation 01/12 blood cultures grew CoNS in 2/4 bottles. Repeat blood cultures later that day post-cardiac arrest again grew CoNS in 4/4 bottles. BCID PCR panel with Staph epi, mec A detected. Blood cultures from 01/13 again grew CoNS in 2/4 bottles, as well as Staph haemolyticus in 1/4 bottles, and E faecalis in 2/4 bottles.. Pt's HD catheter was removed 01/18. Blood cultures cleared on 01/15. Catheter tip culture finalized as NG. PICC inserted on 01/20. On 01/19, he wa febrile with increased work of breathing. CT chest on 01/19 with cardiomegaly with mild intralobular septal thickening which may represent a component of pulm edema, emphysema with bronchitis, trace L pleural effusion, endograft with unchanged fusiform aneurysmal dilation of aorta. He was dced 01/21 to [facility]. He returns with hypoxic resp failure on . During that admission he was followed by ID with plan to complete 6 wks of Daptomycin for CONS and enterococcus bacteremia and presumed endovascular infection. In Ed, he required NRB with sats in 70s and tachypnea. He is currently intubated in ICU and unable to provide a history. He has no leukocytosis. Cr .3.88, procal 1.75 Ct chest without consolidation to suggest pneumonia. Moderate secretions within the trachea and mainstem bronchi and emphysema noted. Thoracic aortic endovascular stent graft in place. Aneurysmal dilatation of the descending thoracic aorta is stable. CTAB showed no significant change in appearance of the abdomen and pelvis. CT head without acute changes. He is currently on IV vancomycin and Zosyn. UC growing >100 K Klebsiella Oxy and sputum cx growing GNR. ID consulted for recent CONS bacteremia. # Acute hypoxic respiratory failure # GNR on sputum cx # Klebsiella oxytoca in UC # recent Staph epi bacteremia # recent E faecalis bacteremia # Recent thoracic aortic aneurysm repair with graft # R HD catheter: removed 01/18 # right great toe screw in place Current Micro UC 01/22 > 100k Kleb oxy - pans BC 01/22 Sputum cx 01/23 GNR Prior Micro: 01/18 HD catheter tip cx: NG 01/17 BCx x2: NGTD 01/15 BCx x2: NG 01/13 BCx x2: Coag neg Staph not lug in 2/4 bottles (R oxacillin, clinda, TMP/SMX. S dapto, tetra, vanc), Staph haemolyticus in 1/4 bottles (R oxacillin, TMP/SMX, clinda. S dapto, tetra, vanc), E faecalis in 2/4 bottles (S amp, vanc). BCID PCR panel + Staph epi, E faecalis 01/12 BCx x2: Coag neg Staph not lugdunensis in 4/4 bottles. BCID PCR panel + Staph epi 01/12 BCx x2: Coag neg Staph not lugdunensis in 2/4 bottles (R oxacillin. S clinda, tetra, TMP/SMX) 01/11 UCx: >3 organisms Abx: Daptomycin 01/12-01/22 Zosyn 01/22-ongoing vanco 01/22-ongoing Coag neg Staph in multiple blood cultures is not a contaminant, lisa in conjunction with presenting symptoms, recent endovascular procedure with graft, and central lines. Several possible sources of infection; 1) endovascular graft, 2) central lines-HD catheter, femoral line, 3) History of R great toe metal/screw (no evidence of infection here), 4) R AC fossa tenderness and redness/PIV infiltration (less likely, RUE US showed R basilic vein thrombosis, no evidence of soft tissue abscess), 5) acute sinusitis on imaging (less likely). Interestingly, pt also with E faecalis on 01/13 blood culture. TTE on 01/15 did not demonstrate vegetations. He was on daptomycin 10 mg/kg for Enterococcus with DAYNA 2 and Cons with plan to treat for 6 wks for endovascular infection, given multiple blood cultures with Staph epi from 01/12-01/13, and E faecalis in 2/4 bottles on 01/13, and he is high risk for graft infection with recent endograft placement. Daptomycin held pending Rule out of pulmonary infection Recommendations: -Continue vancomycin per pharm protocol for now as this will cover recent E feacalis and Cons bacteremia as well as an GPC in lung Discontinued zosyn has pcn allergy . Started renally dosed Cefepime 1 g iv q12h which will cover Kleb oxy in urine and for empiric coverage of GNR in sputum cx. FU GNR in sputum cx FU BC. Thank you for this consultation. ID will continue to follow. Hazel Carreon MD, MPH Infectious Disease [facility], ID Division Call [phone] with questions. Consultation Information Consultation was provided via telemedicine using two-way real-time interactive telecommunication between the patient and the telemedicine provider. For the duration of the visit, the provider was performing the assessment from a different facility than the patient. This includesuse of bluetooth stethoscope forauscultationperformed by the telepresenter that the telemedicine provider can hear if described in the physical exam. Early Years Teacher contact information: Please call [facility] Call Center . (Phone Number For Physician Use Only) After establishing a telemedicine visit, patient was: Patient was verified with two unique identifiers Time Spent with Patient: Initial => 75 min History of Present Illness Reason for Consultation: History of CONS bacteremia Requesting Physician: Cristino Bella MD Attending Physician: Deanne Silva MD History of Present Illness 72 yo male with history of of MO s/p PCI (2000), prostate cancer s/p prostatectomy, HTN, DM2, renal cell carcinoma s/p partial L nephrectomy (2014), LLE DVT (2020), prior history of AAA s/p EVAR (2008), admitted to [facility] 12/18- 01/08 with type B aortic dissection with aortic thrombus and concern for renal infarcts. He underwent thoracic endovascular aortic repair (TEVAR) on 12/23/22 with [place] endograft. He required renal stenting, kidney function worsened and was started on HD via RI permacath. More recently he was admitted to [facility] on 01/10 for placement. His course c/b cardiac arrest on 01/12 after contrast and scans requiring intubation 01/12 blood cultures grew CoNS in 2/4 bottles. Repeat blood cultures later that day post-cardiac arrest again grew CoNS in 4/4 bottles. BCID PCR panel with Staph epi, mec A detected. Blood cultures from 01/13 again grew CoNS in 2/4 bottles, as well as Staph haemolyticus in 1/4 bottles, and E faecalis in 2/4 bottles.. Pt's HD catheter was removed 01/18. Blood cultures cleared on 01/15. Catheter tip culture finalized as NG. PICC inserted on 01/20. On 01/19, he wa febrile with increased work of breathing. CT chest on 01/19 with cardiomegaly with mild intralobular septal thickening which may represent a component of pulm edema, emphysema with bronchitis, trace L pleural effusion, endograft with unchanged fusiform aneurysmal dilation of aorta. He was dced 01/21 to [facility]. He returns with hypoxic resp failure on . During that admission he was followed by ID with plan to complete 6 wks of Daptomycin for CONS and enterococcus bacteremia and presumed endovascular infection. In Ed, he required NRB with sats in 70s and tachypnea. He is currently intubated in ICU and unable to provide a history. He has no leukocytosis. Cr .3.88, procal 1.75 Ct chest without consolidation to suggest pneumonia. Moderate secretions within the trachea and mainstem bronchi and emphysema noted. Thoracic aortic endovascular stent graft in place. Aneurysmal dilatation of the descending thoracic aorta is stable. CTAB showed no significant change in appearance of the abdomen and pelvis. CT head without acute changes. He is currently on IV vancomycin and Zosyn. UC growing >100 K Klebsiella Oxy and sputum cx growing GNR. ID consulted for recent CONS bacteremia. Allergies Allergy/AdvReac Type Severity Reaction Status Date / Time Iodinated Contrast Media Allergy Severe Anaphylaxis Verified 01/22/23 14:52 morphine Allergy Intermediate hives Verified 01/22/23 14:52 Penicillins Allergy Intermediate skin Verified 01/22/23 14:52 streaking tetanus toxoid, adsorbed Allergy Intermediate local skin Verified 01/22/23 14:52 irritation meperidine AdvReac Intermediate hallucinations, Verified 01/22/23 14:52 agitation Home Medications Medication Instructions Recorded Confirmed Type aspirin 81 mg tablet,delayed 81 mg PO QAM 01/18/19 01/22/23 History release (Nora Low Dose Aspirin) amlodipine 5 mg tablet 5 mg PO QAM 03/29/22 01/22/23 History metoprolol tartrate 100 mg tablet 100 mg PO BID 03/29/22 01/22/23 History albuterol sulfate 90 mcg/actuation 2 puff inhalation Q6H PRN Wheezing 01/10/23 01/22/23 History aerosol inhaler clopidogrel 75 mg tablet (Plavix) 75 mg PO QAM 01/10/23 01/22/23 History fluticasone furoate 100 1 inh inhalation QAM 01/10/23 01/22/23 History mcg-vilanterol 25 mcg/dose inhalation powder (Breo Ellipta) oxycodone 5 mg tablet 5 mg PO Q4H PRN Pain 01/10/23 01/22/23 History apixaban 5 mg tablet (Eliquis) 5 mg PO BID #50 tabs 01/21/23 01/22/23 Rx daptomycin 350 mg/50 mL in 0.9 % 850 mg IV Q48H 01/22/23 01/22/23 History sodium chloride intravenous piggyback insulin regular human 100 unit/mL 1 sliding scale dose subcut ACHS 01/22/23 01/22/23 History injection solution (Humulin R PRN BLOOD SUGAR CONTROL Regular U-100 Insulin) naloxone 4 mg/actuation nasal 4 mg intranasal DIRECTED PRN 01/22/23 01/22/23 History spray (Narcan) Opioid Overdose Patient History Medical History Acute renal disease Endotracheally intubated Complicated UTI (urinary tract infection) Uremia Acute encephalopathy Benign prostatic hyperplasia with urinary obstruction Elevated PSA Malignant neoplasm of kidney excluding renal pelvis Urethral stricture History of abdominal aortic aneurysm (AAA) s/p repair + stent (2008) CAD (coronary artery disease) stents x 2 (2000) History of kidney cancer left kidney (2014) s/p tumor removal (s/p partial left nephrectomy) BPH (benign prostatic hyperplasia) GERD (gastroesophageal reflux disease) controlled Diabetes mellitus, type 2 diet controlled History of skin cancer face Hx of myocardial infarction 2000 - stents x 2 Hypertension Hyperlipidemia Renal mass, left Surgical History Status post insertion of iliac artery stent (from trauma from endovascular procedure per records) Hx of colonoscopy History of AAA (abdominal aortic aneurysm) repair + stent (2008) Hx of hernia repair Hx of abdominal surgery d/t peritonitis History of appendectomy History of kidney surgery Left partial robotic nephrectomy, hand assisted laparoscopy: 09/24/14: Grade I view, MAC#4, ETT 8 at [facility] Family History Brother Family history of diabetes mellitus Social History Smoking Status: Former smoker Tobacco Type: Cigarettes Second Hand Exposure: No; Do You Dip or Chew Tobacco: No; Hx Alcohol Use: No Hx Substance Use: No Preferred Language: French Communication Ability: Unable Route Salesman Required: No Beliefs That Will Affect Care: None Current Living Situation: Rehab Current Living Situation Comment: From [facility] rehab Feels Safe at Home: Yes Assistive Devices: Cane Review of System Unable to obtained. Intubated Physical Exam Physical Exam: gen- intubated, sedated Neck supple Abd- sof ext- without edema, R picc - c/d/i - jerry in place Results & Data Vital Signs (Past 12 Hours) Vital Signs Temp Pulse Resp BP Pulse Ox O2 Del Method FiO2 01/24/23 12:00 137/72 01/24/23 12:00 37.9 C H 78 19 90 01/24/23 12:00 30 01/24/23 11:00 38.0 C H 77 20 95 01/24/23 11:00 130/77 01/24/23 10:00 136/78 01/24/23 10:00 38.0 C H 79 23 95 01/24/23 10:00 80 21 92 30 01/24/23 09:00 37.8 C H 81 42 H 95 01/24/23 09:00 160/90 H 01/24/23 08:00 37.5 C 75 32 H 95 01/24/23 08:00 147/87 H 01/24/23 08:00 30 01/24/23 08:00 Mechanical Vent 30 01/24/23 07:19 76 22 94 30 01/24/23 07:00 151/86 H 01/24/23 07:00 37.4 C 79 24 92 01/24/23 06:30 37.2 C 77 21 95 01/24/23 06:00 129/71 01/24/23 06:00 37.2 C 71 20 90 01/24/23 05:30 37.1 C 76 18 94 01/24/23 05:00 37.1 C 70 19 92 01/24/23 05:00 120/76 01/24/23 04:30 37.0 C 69 18 93 01/24/23 04:00 118/71 01/24/23 04:00 37.0 C 68 18 92 01/24/23 04:00 30 01/24/23 03:30 36.9 C 71 18 92 01/24/23 03:15 74 18 93 30 01/24/23 03:00 36.9 C 72 18 95 01/24/23 03:00 138/84 01/24/23 02:30 36.9 C 71 18 94 01/24/23 02:00 36.9 C 70 19 94 01/24/23 02:00 128/78 01/24/23 01:30 37.0 C 72 18 94 01/24/23 01:00 37.1 C 74 18 93 01/24/23 01:00 140/80 Laboratory Results Laboratory Results - last 48 hr 01/22/23 01/22/23 01/22/23 13:20 13:30 15:15 WBC 9.05 RBC 2.56 L Hgb 7.5 L POC Hgb 7.5 L Hct 24.9 L POC Hct 22 L MCV 97.3 MCH 29.3 MCHC 30.1 L RDW Std Deviation 50.0 H RDW Coeff of Gennaro 14.2 Plt Count 351 MPV 10.3 Immature Gran % (Auto) 0.6 Neut % (Auto) 76.6 Lymph % (Auto) 13.5 [place] % (Auto) 7.0 Eos % (Auto) 2.0 Baso % (Auto) 0.3 Neut # (Auto) 6.94 H Lymph # (Auto) 1.22 [place] # (Auto) 0.63 H Eos # (Auto) 0.18 Baso # (Auto) 0.03 Immature Gran # (Auto) 0.05 RBC Morphology Polychromasia 1+ Hypochromasia Basophilic Stippling 1+ Anisocytosis Microcytosis Stomatocytes PT 12.7 H INR 1.2 H APTT 31.4 H PTT Ratio 1.1 Fibrinogen Sample Site POC pH POC pCO2 POC pO2 POC HCO3 POC Base Excess ABG pH (Temp Correct) ABG pCO2 (Temp Corrct POC ABG pO2 at Pt Temp POC ABG O2 Sat Logan Test VBG pH 7.25 L VBG pCO2 61 H VBG pO2 40 VBG HCO3 27 VBG O2 Saturation 64.4 VBG Base Excess -1.7 O2 Delivery Device POC O2 Rate POC FiO2 Tidal Volume PEEP POC Sodium 144 Sodium 144 POC Potassium 4.9 Potassium 4.9 POC Chloride 108 Chloride 106 Carbon Dioxide 29 POC Total CO2 28 Anion Gap 9 POC Anion Gap 14.0 L POC BUN 85 H BUN 77 H Creatinine 3.88 H D POC Creatinine 4.0 H Est Cr Clr Drug Dosing 17.0 Est GFR ( Amer) 16.7 Est GFR (Non-Af Amer) 14.4 BUN/Creatinine Ratio 19.8 Glucose 140 H POC Glucose POC Glucose (other) 143 H Lactate 0.8 Calcium 9.4 POC Ioniz Calcium Carin 1.22 Magnesium 2.5 H Total Bilirubin 0.5 AST 46 H ALT 60 H Alkaline Phosphatase 189 H Ammonia Total Creatine Kinase 31 Troponin I High Sens 27.5 H B-Natriuretic Peptide 76 Total Protein 7.5 Albumin 3.1 L Globulin 4.4 H Albumin/Globulin Ratio 0.7 L Procalcitonin 1.75 H TSH Urine Color Yellow Urine Appearance Turbid A Urine pH 7.0 Ur Specific [place] 1.012 Urine Protein 1+ H Urine Glucose (UA) Negative Urine Ketones Negative Urine Blood 3+ H Urine Nitrite Negative Urine Bilirubin Negative Urine Urobilinogen Negative Ur Leukocyte Esterase 2+ H Urine WBC (Auto) >30 H Urine RBC (Auto) 5-10 H U Hyaline Cast (Auto) 0 U Epithel Cells (Auto) 5-10 H Urine Bacteria (Auto) 3+ H Nasal Screen MRSA (PCR) Random Vancomycin Adenovirus (PCR) Not Detected B. pertussis DNA (PCR) Not Detected B.parapertussis DNA PCR Not Detected C. pneumoniae DNA (PCR) Not Detected Coronavirus OC43 (PCR) Not Detected Coronavirus HKU1 (PCR) Not Detected Coronavirus 229E (PCR) Not Detected SARS-CoV-2 (PCR) Not Detected Coronavirus NL63 (PCR) Not Detected Human Metapneumovir PCR Not Detected Influenza Type A (PCR) Not Detected Influenza Type B (PCR) Not Detected M. pneumoniae (PCR) Not Detected Parainfluenza 1 (PCR) Not Detected Parainfluenza 2 (PCR) Not Detected Parainfluenza 3 (PCR) Not Detected Parainfluenza 4 (PCR) Not Detected RSV (PCR) Not Detected Entero/Rhino (PCR) Not Detected Blood Type Antibody Screen Crossmatch 01/22/23 01/22/23 01/22/23 15:16 15:59 17:11 WBC 8.16 RBC 2.20 L Hgb 6.5 L* POC Hgb Hct 21.1 L POC Hct MCV 95.9 MCH 29.5 MCHC 30.8 L RDW Std Deviation 49.4 H RDW Coeff of Gennaro 14.3 Plt Count 295 MPV 10.3 Immature Gran % (Auto) 0.6 Neut % (Auto) 77.3 Lymph % (Auto) 12.9 [place] % (Auto) 7.0 Eos % (Auto) 2.1 Baso % (Auto) 0.1 Neut # (Auto) 6.31 Lymph # (Auto) 1.05 L [place] # (Auto) 0.57 Eos # (Auto) 0.17 Baso # (Auto) 0.01 Immature Gran # (Auto) 0.05 RBC Morphology Polychromasia Hypochromasia Basophilic Stippling 1+ Anisocytosis Present Microcytosis Stomatocytes PT INR APTT PTT Ratio Fibrinogen Sample Site POC pH POC pCO2 POC pO2 POC HCO3 POC Base Excess ABG pH (Temp Correct) ABG pCO2 (Temp Corrct POC ABG pO2 at Pt Temp POC ABG O2 Sat Logan Test VBG pH 7.23 L VBG pCO2 63 H VBG pO2 39 VBG HCO3 26 VBG O2 Saturation 64.5 VBG Base Excess -2.4 O2 Delivery Device POC O2 Rate POC FiO2 Tidal Volume PEEP POC Sodium Sodium 144 POC Potassium Potassium 5.0 POC Chloride Chloride 109 H Carbon Dioxide 27 POC Total CO2 Anion Gap 8 POC Anion Gap POC BUN BUN 78 H Creatinine 3.61 H POC Creatinine Est Cr Clr Drug Dosing 18.2 Est GFR ( Amer) 18.2 Est GFR (Non-Af Amer) 15.7 BUN/Creatinine Ratio 21.6 H Glucose 128 H POC Glucose POC Glucose (other) Lactate Calcium 8.8 POC Ioniz Calcium Carin Magnesium Total Bilirubin AST ALT Alkaline Phosphatase Ammonia 32.0 Total Creatine Kinase Troponin I High Sens 27.5 H B-Natriuretic Peptide Total Protein Albumin Globulin Albumin/Globulin Ratio Procalcitonin TSH 0.437 Urine Color Urine Appearance Urine pH Ur Specific [place] Urine Protein Urine Glucose (UA) Urine Ketones Urine Blood Urine Nitrite Urine Bilirubin Urine Urobilinogen Ur Leukocyte Esterase Urine WBC (Auto) Urine RBC (Auto) U Hyaline Cast (Auto) U Epithel Cells (Auto) Urine Bacteria (Auto) Nasal Screen MRSA (PCR) Random Vancomycin Adenovirus (PCR) B. pertussis DNA (PCR) B.parapertussis DNA PCR C. pneumoniae DNA (PCR) Coronavirus OC43 (PCR) Coronavirus HKU1 (PCR) Coronavirus 229E (PCR) SARS-CoV-2 (PCR) Coronavirus NL63 (PCR) Human Metapneumovir PCR Influenza Type A (PCR) Influenza Type B (PCR) M. pneumoniae (PCR) Parainfluenza 1 (PCR) Parainfluenza 2 (PCR) Parainfluenza 3 (PCR) Parainfluenza 4 (PCR) RSV (PCR) Entero/Rhino (PCR) Blood Type Antibody Screen Crossmatch 01/22/23 01/22/23 01/22/23 17:14 18:05 18:22 WBC RBC Hgb POC Hgb 6.5 L* Hct POC Hct 19 L* MCV MCH MCHC RDW Std Deviation RDW Coeff of Gennaro Plt Count MPV Immature Gran % (Auto) Neut % (Auto) Lymph % (Auto) [place] % (Auto) Eos % (Auto) Baso % (Auto) Neut # (Auto) Lymph # (Auto) [place] # (Auto) Eos # (Auto) Baso # (Auto) Immature Gran # (Auto) RBC Morphology Polychromasia Hypochromasia Basophilic Stippling Anisocytosis Microcytosis Stomatocytes PT INR APTT PTT Ratio Fibrinogen 818 H Sample Site POC pH 7.26 L POC pCO2 63 H POC pO2 126 H POC HCO3 28 H POC Base Excess 1.0 ABG pH (Temp Correct) ABG pCO2 (Temp Corrct POC ABG pO2 at Pt Temp POC ABG O2 Sat 98.0 H Logan Test VBG pH VBG pCO2 VBG pO2 VBG HCO3 VBG O2 Saturation VBG Base Excess O2 Delivery Device POC O2 Rate POC FiO2 Tidal Volume PEEP POC Sodium 144 Sodium POC Potassium 5.1 H Potassium POC Chloride Chloride Carbon Dioxide POC Total CO2 30 Anion Gap POC Anion Gap POC BUN BUN Creatinine POC Creatinine Est Cr Clr Drug Dosing Est GFR ( Amer) Est GFR (Non-Af Amer) BUN/Creatinine Ratio Glucose POC Glucose POC Glucose (other) Lactate Calcium POC Ioniz Calcium Carin Magnesium Total Bilirubin AST ALT Alkaline Phosphatase Ammonia Total Creatine Kinase Troponin I High Sens B-Natriuretic Peptide Total Protein Albumin Globulin Albumin/Globulin Ratio Procalcitonin TSH Urine Color Urine Appearance Urine pH Ur Specific [place] Urine Protein Urine Glucose (UA) Urine Ketones Urine Blood Urine Nitrite Urine Bilirubin Urine Urobilinogen Ur Leukocyte Esterase Urine WBC (Auto) Urine RBC (Auto) U Hyaline Cast (Auto) U Epithel Cells (Auto) Urine Bacteria (Auto) Nasal Screen MRSA (PCR) Negative Random Vancomycin Adenovirus (PCR) B. pertussis DNA (PCR) B.parapertussis DNA PCR C. pneumoniae DNA (PCR) Coronavirus OC43 (PCR) Coronavirus HKU1 (PCR) Coronavirus 229E (PCR) SARS-CoV-2 (PCR) Coronavirus NL63 (PCR) Human Metapneumovir PCR Influenza Type A (PCR) Influenza Type B (PCR) M. pneumoniae (PCR) Parainfluenza 1 (PCR) Parainfluenza 2 (PCR) Parainfluenza 3 (PCR) Parainfluenza 4 (PCR) RSV (PCR) Entero/Rhino (PCR) Blood Type A Positive Antibody Screen NEGATIVE Crossmatch See Detail 01/22/23 01/22/23 01/22/23 18:29 20:31 20:35 WBC 8.83 RBC 2.28 L Hgb 6.6 L* POC Hgb Hct 22.5 L POC Hct MCV 98.7 MCH 28.9 MCHC 29.3 L RDW Std Deviation 50.7 H RDW Coeff of Gennaro 14.3 Plt Count 334 MPV 10.2 Immature Gran % (Auto) 0.3 Neut % (Auto) 74.4 Lymph % (Auto) 16.0 [place] % (Auto) 7.0 Eos % (Auto) 2.2 Baso % (Auto) 0.1 Neut # (Auto) 6.57 H Lymph # (Auto) 1.41 [place] # (Auto) 0.62 H Eos # (Auto) 0.19 Baso # (Auto) 0.01 Immature Gran # (Auto) 0.03 RBC Morphology Polychromasia Hypochromasia Present Basophilic Stippling 1+ Anisocytosis Present Microcytosis Stomatocytes 1+ PT INR APTT PTT Ratio Fibrinogen Sample Site POC pH POC pCO2 POC pO2 POC HCO3 POC Base Excess ABG pH (Temp Correct) ABG pCO2 (Temp Corrct POC ABG pO2 at Pt Temp POC ABG O2 Sat Logan Test VBG pH 7.16 L VBG pCO2 73 H VBG pO2 53 VBG HCO3 26 VBG O2 Saturation 82.0 VBG Base Excess -4.3 O2 Delivery Device POC O2 Rate POC FiO2 Tidal Volume PEEP POC Sodium Sodium POC Potassium Potassium POC Chloride Chloride Carbon Dioxide POC Total CO2 Anion Gap POC Anion Gap POC BUN BUN Creatinine POC Creatinine Est Cr Clr Drug Dosing Est GFR ( Amer) Est GFR (Non-Af Amer) BUN/Creatinine Ratio Glucose POC Glucose 142 H POC Glucose (other) Lactate Calcium POC Ioniz Calcium Carin Magnesium Total Bilirubin AST ALT Alkaline Phosphatase Ammonia Total Creatine Kinase Troponin I High Sens B-Natriuretic Peptide Total Protein Albumin Globulin Albumin/Globulin Ratio Procalcitonin TSH Urine Color Urine Appearance Urine pH Ur Specific [place] Urine Protein Urine Glucose (UA) Urine Ketones Urine Blood Urine Nitrite Urine Bilirubin Urine Urobilinogen Ur Leukocyte Esterase Urine WBC (Auto) Urine RBC (Auto) U Hyaline Cast (Auto) U Epithel Cells (Auto) Urine Bacteria (Auto) Nasal Screen MRSA (PCR) Random Vancomycin Adenovirus (PCR) B. pertussis DNA (PCR) B.parapertussis DNA PCR C. pneumoniae DNA (PCR) Coronavirus OC43 (PCR) Coronavirus HKU1 (PCR) Coronavirus 229E (PCR) SARS-CoV-2 (PCR) Coronavirus NL63 (PCR) Human Metapneumovir PCR Influenza Type A (PCR) Influenza Type B (PCR) M. pneumoniae (PCR) Parainfluenza 1 (PCR) Parainfluenza 2 (PCR) Parainfluenza 3 (PCR) Parainfluenza 4 (PCR) RSV (PCR) Entero/Rhino (PCR) Blood Type Antibody Screen Crossmatch 01/22/23 01/22/23 01/23/23 22:30 23:10 00:31 WBC 10.79 RBC 2.76 L Hgb 7.8 L POC Hgb 7.5 L Hct 26.4 L POC Hct 22 L MCV 95.7 MCH 28.3 MCHC 29.5 L RDW Std Deviation 54.9 H RDW Coeff of Gennaro 15.9 H Plt Count 338 MPV 9.8 Immature Gran % (Auto) 0.6 Neut % (Auto) 78.9 Lymph % (Auto) 12.8 [place] % (Auto) 5.6 Eos % (Auto) 1.8 Baso % (Auto) 0.3 Neut # (Auto) 8.52 H Lymph # (Auto) 1.38 [place] # (Auto) 0.60 H Eos # (Auto) 0.19 Baso # (Auto) 0.03 Immature Gran # (Auto) 0.07 RBC Morphology Polychromasia 1+ Hypochromasia Basophilic Stippling Anisocytosis Present Microcytosis Stomatocytes PT INR APTT PTT Ratio Fibrinogen Sample Site L Radial POC pH 7.34 L POC pCO2 41 POC pO2 64 L POC HCO3 22 POC Base Excess -3.0 ABG pH (Temp Correct) 7.350 ABG pCO2 (Temp Corrct 40 POC ABG pO2 at Pt Temp 62 POC ABG O2 Sat 91.0 Logan Test Pass VBG pH 7.24 L VBG pCO2 61 H VBG pO2 29 VBG HCO3 26 VBG O2 Saturation < 60.0 VBG Base Excess -2.5 O2 Delivery Device Ventilator POC O2 Rate 20 POC FiO2 40 Tidal Volume 450 PEEP 8 POC Sodium 143 Sodium POC Potassium 4.6 Potassium POC Chloride Chloride Carbon Dioxide POC Total CO2 24 Anion Gap POC Anion Gap POC BUN BUN Creatinine POC Creatinine Est Cr Clr Drug Dosing Est GFR ( Amer) Est GFR (Non-Af Amer) BUN/Creatinine Ratio Glucose POC Glucose POC Glucose (other) Lactate Calcium POC Ioniz Calcium Carin Magnesium Total Bilirubin AST ALT Alkaline Phosphatase Ammonia Total Creatine Kinase Troponin I High Sens B-Natriuretic Peptide Total Protein Albumin Globulin Albumin/Globulin Ratio Procalcitonin TSH Urine Color Urine Appearance Urine pH Ur Specific [place] Urine Protein Urine Glucose (UA) Urine Ketones Urine Blood Urine Nitrite Urine Bilirubin Urine Urobilinogen Ur Leukocyte Esterase Urine WBC (Auto) Urine RBC (Auto) U Hyaline Cast (Auto) U Epithel Cells (Auto) Urine Bacteria (Auto) Nasal Screen MRSA (PCR) Random Vancomycin Adenovirus (PCR) B. pertussis DNA (PCR) B.parapertussis DNA PCR C. pneumoniae DNA (PCR) Coronavirus OC43 (PCR) Coronavirus HKU1 (PCR) Coronavirus 229E (PCR) SARS-CoV-2 (PCR) Coronavirus NL63 (PCR) Human Metapneumovir PCR Influenza Type A (PCR) Influenza Type B (PCR) M. pneumoniae (PCR) Parainfluenza 1 (PCR) Parainfluenza 2 (PCR) Parainfluenza 3 (PCR) Parainfluenza 4 (PCR) RSV (PCR) Entero/Rhino (PCR) Blood Type Antibody Screen Crossmatch 01/23/23 01/23/23 01/23/23 01:04 04:24 04:52 WBC 9.86 RBC 2.76 L Hgb 7.8 L POC Hgb 7.5 L Hct 25.8 L POC Hct MCV 93.5 MCH 28.3 MCHC 30.2 L RDW Std Deviation 54.1 H RDW Coeff of Gennaro 15.9 H Plt Count 343 MPV 10.3 Immature Gran % (Auto) 0.6 Neut % (Auto) 77.8 Lymph % (Auto) 12.9 [place] % (Auto) 6.5 Eos % (Auto) 2.0 Baso % (Auto) 0.2 Neut # (Auto) 7.67 H Lymph # (Auto) 1.27 [place] # (Auto) 0.64 H Eos # (Auto) 0.20 Baso # (Auto) 0.02 Immature Gran # (Auto) 0.06 RBC Morphology Polychromasia 1+ Hypochromasia Basophilic Stippling Anisocytosis Microcytosis Present Stomatocytes PT INR APTT PTT Ratio Fibrinogen Sample Site POC pH POC pCO2 POC pO2 POC HCO3 POC Base Excess ABG pH (Temp Correct) ABG pCO2 (Temp Corrct POC ABG pO2 at Pt Temp POC ABG O2 Sat [place] Test VBG pH 7.33 L VBG pCO2 48 VBG pO2 29 VBG HCO3 25 VBG O2 Saturation < 60.0 VBG Base Excess -1.1 O2 Delivery Device POC O2 Rate POC FiO2 Tidal Volume PEEP POC Sodium Sodium 145 POC Potassium Potassium 4.3 POC Chloride Chloride 109 H Carbon Dioxide 23 POC Total CO2 Anion Gap 13 H POC Anion Gap POC BUN BUN 74 H Creatinine 3.37 H POC Creatinine Est Cr Clr Drug Dosing 19.9 Est GFR ( Amer) 19.8 Est GFR (Non-Af Amer) 17.1 BUN/Creatinine Ratio 22.0 H Glucose 134 H POC Glucose 150 H POC Glucose (other) Lactate Calcium 9.2 POC Ioniz Calcium Carin Magnesium 2.2 Total Bilirubin 0.6 AST 42 H ALT 54 H Alkaline Phosphatase 166 H Ammonia Total Creatine Kinase Troponin I High Sens B-Natriuretic Peptide Total Protein 7.0 Albumin 2.9 L Globulin 4.1 H Albumin/Globulin Ratio 0.7 L Procalcitonin TSH Urine Color Urine Appearance Urine pH Ur Specific [place] Urine Protein Urine Glucose (UA) Urine Ketones Urine Blood Urine Nitrite Urine Bilirubin Urine Urobilinogen Ur Leukocyte Esterase Urine WBC (Auto) Urine RBC (Auto) U Hyaline Cast (Auto) U Epithel Cells (Auto) Urine Bacteria (Auto) Nasal Screen MRSA (PCR) Random Vancomycin Adenovirus (PCR) B. pertussis DNA (PCR) B.parapertussis DNA PCR C. pneumoniae DNA (PCR) Coronavirus OC43 (PCR) Coronavirus HKU1 (PCR) Coronavirus 229E (PCR) SARS-CoV-2 (PCR) Coronavirus NL63 (PCR) Human Metapneumovir PCR Influenza Type A (PCR) Influenza Type B (PCR) M. pneumoniae (PCR) Parainfluenza 1 (PCR) Parainfluenza 2 (PCR) Parainfluenza 3 (PCR) Parainfluenza 4 (PCR) RSV (PCR) Entero/Rhino (PCR) Blood Type Antibody Screen Crossmatch 01/23/23 01/23/23 01/23/23 04:52 04:52 04:52 WBC RBC Hgb POC Hgb 7.5 L Hct POC Hct 22 L 22 L MCV MCH MCHC RDW Std Deviation RDW Coeff of Gennaro Plt Count MPV Immature Gran % (Auto) Neut % (Auto) Lymph % (Auto) [place] % (Auto) Eos % (Auto) Baso % (Auto) Neut # (Auto) Lymph # (Auto) [place] # (Auto) Eos # (Auto) Baso # (Auto) Immature Gran # (Auto) RBC Morphology Polychromasia Hypochromasia Basophilic Stippling Anisocytosis Microcytosis Stomatocytes PT INR APTT PTT Ratio Fibrinogen Sample Site L Radial L Radial POC pH 7.42 POC pCO2 POC pO2 POC HCO3 POC Base Excess ABG pH (Temp Correct) ABG pCO2 (Temp Corrct POC ABG pO2 at Pt Temp POC ABG O2 Sat [place] Test VBG pH VBG pCO2 VBG pO2 VBG HCO3 VBG O2 Saturation VBG Base Excess O2 Delivery Device POC O2 Rate POC FiO2 Tidal Volume PEEP POC Sodium Sodium POC Potassium Potassium POC Chloride Chloride Carbon Dioxide POC Total CO2 Anion Gap POC Anion Gap POC BUN BUN Creatinine POC Creatinine Est Cr Clr Drug Dosing Est GFR ( Amer) Est GFR (Non-Af Amer) BUN/Creatinine Ratio Glucose POC Glucose POC Glucose (other) Lactate Calcium POC Ioniz Calcium Carin Magnesium Total Bilirubin AST ALT Alkaline Phosphatase Ammonia Total Creatine Kinase Troponin I High Sens B-Natriuretic Peptide Total Protein Albumin Globulin Albumin/Globulin Ratio Procalcitonin TSH Urine Color Urine Appearance Urine pH Ur Specific [place] Urine Protein Urine Glucose (UA) Urine Ketones Urine Blood Urine Nitrite Urine Bilirubin Urine Urobilinogen Ur Leukocyte Esterase Urine WBC (Auto) Urine RBC (Auto) U Hyaline Cast (Auto) U Epithel Cells (Auto) Urine Bacteria (Auto) Nasal Screen MRSA (PCR) Random Vancomycin Adenovirus (PCR) B. pertussis DNA (PCR) B.parapertussis DNA PCR C. pneumoniae DNA (PCR) Coronavirus OC43 (PCR) Coronavirus HKU1 (PCR) Coronavirus 229E (PCR) SARS-CoV-2 (PCR) Coronavirus NL63 (PCR) Human Metapneumovir PCR Influenza Type A (PCR) Influenza Type B (PCR) M. pneumoniae (PCR) Parainfluenza 1 (PCR) Parainfluenza 2 (PCR) Parainfluenza 3 (PCR) Parainfluenza 4 (PCR) RSV (PCR) Entero/Rhino (PCR) Blood Type Antibody Screen Crossmatch 01/23/23 01/23/23 01/23/23 04:52 04:52 04:52 WBC RBC Hgb POC Hgb Hct POC Hct MCV MCH MCHC RDW Std Deviation RDW Coeff of Gennaro Plt Count MPV Immature Gran % (Auto) Neut % (Auto) Lymph % (Auto) [place] % (Auto) Eos % (Auto) Baso % (Auto) Neut # (Auto) Lymph # (Auto) [place] # (Auto) Eos # (Auto) Baso # (Auto) Immature Gran # (Auto) RBC Morphology Polychromasia Hypochromasia Basophilic Stippling Anisocytosis Microcytosis Stomatocytes PT INR APTT PTT Ratio Fibrinogen Sample Site POC pH 7.42 POC pCO2 36 36 POC pO2 72 L 72 L POC HCO3 23 POC Base Excess ABG pH (Temp Correct) ABG pCO2 (Temp Corrct POC ABG pO2 at Pt Temp POC ABG O2 Sat [place] Test VBG pH VBG pCO2 VBG pO2 VBG HCO3 VBG O2 Saturation VBG Base Excess O2 Delivery Device POC O2 Rate POC FiO2 Tidal Volume PEEP POC Sodium Sodium POC Potassium Potassium POC Chloride Chloride Carbon Dioxide POC Total CO2 Anion Gap POC Anion Gap POC BUN BUN Creatinine POC Creatinine Est Cr Clr Drug Dosing Est GFR ( Amer) Est GFR (Non-Af Amer) BUN/Creatinine Ratio Glucose POC Glucose POC Glucose (other) Lactate Calcium POC Ioniz Calcium Carin Magnesium Total Bilirubin AST ALT Alkaline Phosphatase Ammonia Total Creatine Kinase Troponin I High Sens B-Natriuretic Peptide Total Protein Albumin Globulin Albumin/Globulin Ratio Procalcitonin TSH Urine Color Urine Appearance Urine pH Ur Specific [place] Urine Protein Urine Glucose (UA) Urine Ketones Urine Blood Urine Nitrite Urine Bilirubin Urine Urobilinogen Ur Leukocyte Esterase Urine WBC (Auto) Urine RBC (Auto) U Hyaline Cast (Auto) U Epithel Cells (Auto) Urine Bacteria (Auto) Nasal Screen MRSA (PCR) Random Vancomycin Adenovirus (PCR) B. pertussis DNA (PCR) B.parapertussis DNA PCR C. pneumoniae DNA (PCR) Coronavirus OC43 (PCR) Coronavirus HKU1 (PCR) Coronavirus 229E (PCR) SARS-CoV-2 (PCR) Coronavirus NL63 (PCR) Human Metapneumovir PCR Influenza Type A (PCR) Influenza Type B (PCR) M. pneumoniae (PCR) Parainfluenza 1 (PCR) Parainfluenza 2 (PCR) Parainfluenza 3 (PCR) Parainfluenza 4 (PCR) RSV (PCR) Entero/Rhino (PCR) Blood Type Antibody Screen Crossmatch 01/23/23 01/23/23 01/23/23 04:52 04:52 04:52 WBC RBC Hgb POC Hgb Hct POC Hct MCV MCH MCHC RDW Std Deviation RDW Coeff of Gennaro Plt Count MPV Immature Gran % (Auto) Neut % (Auto) Lymph % (Auto) [place] % (Auto) Eos % (Auto) Baso % (Auto) Neut # (Auto) Lymph # (Auto) [place] # (Auto) Eos # (Auto) Baso # (Auto) Immature Gran # (Auto) RBC Morphology Polychromasia Hypochromasia Basophilic Stippling Anisocytosis Microcytosis Stomatocytes PT INR APTT PTT Ratio Fibrinogen Sample Site POC pH POC pCO2 POC pO2 POC HCO3 23 POC Base Excess -1.0 -1.0 ABG pH (Temp Correct) 7.405 ABG pCO2 (Temp Corrct POC ABG pO2 at Pt Temp POC ABG O2 Sat [place] Test VBG pH VBG pCO2 VBG pO2 VBG HCO3 VBG O2 Saturation VBG Base Excess O2 Delivery Device POC O2 Rate POC FiO2 Tidal Volume PEEP POC Sodium Sodium POC Potassium Potassium POC Chloride Chloride Carbon Dioxide POC Total CO2 24 24 Anion Gap POC Anion Gap POC BUN BUN Creatinine POC Creatinine Est Cr Clr Drug Dosing Est GFR ( Amer) Est GFR (Non-Af Amer) BUN/Creatinine Ratio Glucose POC Glucose POC Glucose (other) Lactate Calcium POC Ioniz Calcium Carin Magnesium Total Bilirubin AST ALT Alkaline Phosphatase Ammonia Total Creatine Kinase Troponin I High Sens B-Natriuretic Peptide Total Protein Albumin Globulin Albumin/Globulin Ratio Procalcitonin TSH Urine Color Urine Appearance Urine pH Ur Specific [place] Urine Protein Urine Glucose (UA) Urine Ketones Urine Blood Urine Nitrite Urine Bilirubin Urine Urobilinogen Ur Leukocyte Esterase Urine WBC (Auto) Urine RBC (Auto) U Hyaline Cast (Auto) U Epithel Cells (Auto) Urine Bacteria (Auto) Nasal Screen MRSA (PCR) Random Vancomycin Adenovirus (PCR) B. pertussis DNA (PCR) B.parapertussis DNA PCR C. pneumoniae DNA (PCR) Coronavirus OC43 (PCR) Coronavirus HKU1 (PCR) Coronavirus 229E (PCR) SARS-CoV-2 (PCR) Coronavirus NL63 (PCR) Human Metapneumovir PCR Influenza Type A (PCR) Influenza Type B (PCR) M. pneumoniae (PCR) Parainfluenza 1 (PCR) Parainfluenza 2 (PCR) Parainfluenza 3 (PCR) Parainfluenza 4 (PCR) RSV (PCR) Entero/Rhino (PCR) Blood Type Antibody Screen Crossmatch 01/23/23 01/23/23 01/23/23 04:52 04:52 04:52 WBC RBC Hgb POC Hgb Hct POC Hct MCV MCH MCHC RDW Std Deviation RDW Coeff of Gennaro Plt Count MPV Immature Gran % (Auto) Neut % (Auto) Lymph % (Auto) [place] % (Auto) Eos % (Auto) Baso % (Auto) Neut # (Auto) Lymph # (Auto) [place] # (Auto) Eos # (Auto) Baso # (Auto) Immature Gran # (Auto) RBC Morphology Polychromasia Hypochromasia Basophilic Stippling Anisocytosis Microcytosis Stomatocytes PT INR APTT PTT Ratio Fibrinogen Sample Site POC pH POC pCO2 POC pO2 POC HCO3 POC Base Excess ABG pH (Temp Correct) 7.405 ABG pCO2 (Temp Corrct 37 37 POC ABG pO2 at Pt Temp 78 78 POC ABG O2 Sat 95.0 [place] Test VBG pH VBG pCO2 VBG pO2 VBG HCO3 VBG O2 Saturation VBG Base Excess O2 Delivery Device POC O2 Rate POC FiO2 Tidal Volume PEEP POC Sodium Sodium POC Potassium Potassium POC Chloride Chloride Carbon Dioxide POC Total CO2 Anion Gap POC Anion Gap POC BUN BUN Creatinine POC Creatinine Est Cr Clr Drug Dosing Est GFR ( Amer) Est GFR (Non-Af Amer) BUN/Creatinine Ratio Glucose POC Glucose POC Glucose (other) Lactate Calcium POC Ioniz Calcium Carin Magnesium Total Bilirubin AST ALT Alkaline Phosphatase Ammonia Total Creatine Kinase Troponin I High Sens B-Natriuretic Peptide Total Protein Albumin Globulin Albumin/Globulin Ratio Procalcitonin TSH Urine Color Urine Appearance Urine pH Ur Specific [place] Urine Protein Urine Glucose (UA) Urine Ketones Urine Blood Urine Nitrite Urine Bilirubin Urine Urobilinogen Ur Leukocyte Esterase Urine WBC (Auto) Urine RBC (Auto) U Hyaline Cast (Auto) U Epithel Cells (Auto) Urine Bacteria (Auto) Nasal Screen MRSA (PCR) Random Vancomycin Adenovirus (PCR) B. pertussis DNA (PCR) B.parapertussis DNA PCR C. pneumoniae DNA (PCR) Coronavirus OC43 (PCR) Coronavirus HKU1 (PCR) Coronavirus 229E (PCR) SARS-CoV-2 (PCR) Coronavirus NL63 (PCR) Human Metapneumovir PCR Influenza Type A (PCR) Influenza Type B (PCR) M. pneumoniae (PCR) Parainfluenza 1 (PCR) Parainfluenza 2 (PCR) Parainfluenza 3 (PCR) Parainfluenza 4 (PCR) RSV (PCR) Entero/Rhino (PCR) Blood Type Antibody Screen Crossmatch 01/23/23 01/23/23 01/23/23 04:52 04:52 04:52 WBC RBC Hgb POC Hgb Hct POC Hct MCV MCH MCHC RDW Std Deviation RDW Coeff of Gennaro Plt Count MPV Immature Gran % (Auto) Neut % (Auto) Lymph % (Auto) [place] % (Auto) Eos % (Auto) Baso % (Auto) Neut # (Auto) Lymph # (Auto) [place] # (Auto) Eos # (Auto) Baso # (Auto) Immature Gran # (Auto) RBC Morphology Polychromasia Hypochromasia Basophilic Stippling Anisocytosis Microcytosis Stomatocytes PT INR APTT PTT Ratio Fibrinogen Sample Site POC pH POC pCO2 POC pO2 POC HCO3 POC Base Excess ABG pH (Temp Correct) ABG pCO2 (Temp Corrct POC ABG pO2 at Pt Temp POC ABG O2 Sat 95.0 [place] Test Pass Pass VBG pH VBG pCO2 VBG pO2 VBG HCO3 VBG O2 Saturation VBG Base Excess O2 Delivery Device Ventilator Ventilator POC O2 Rate 20 POC FiO2 Tidal Volume PEEP POC Sodium Sodium POC Potassium Potassium POC Chloride Chloride Carbon Dioxide POC Total CO2 Anion Gap POC Anion Gap POC BUN BUN Creatinine POC Creatinine Est Cr Clr Drug Dosing Est GFR ( Amer) Est GFR (Non-Af Amer) BUN/Creatinine Ratio Glucose POC Glucose POC Glucose (other) Lactate Calcium POC Ioniz Calcium Carin Magnesium Total Bilirubin AST ALT Alkaline Phosphatase Ammonia Total Creatine Kinase Troponin I High Sens B-Natriuretic Peptide Total Protein Albumin Globulin Albumin/Globulin Ratio Procalcitonin TSH Urine Color Urine Appearance Urine pH Ur Specific [place] Urine Protein Urine Glucose (UA) Urine Ketones Urine Blood Urine Nitrite Urine Bilirubin Urine Urobilinogen Ur Leukocyte Esterase Urine WBC (Auto) Urine RBC (Auto) U Hyaline Cast (Auto) U Epithel Cells (Auto) Urine Bacteria (Auto) Nasal Screen MRSA (PCR) Random Vancomycin Adenovirus (PCR) B. pertussis DNA (PCR) B.parapertussis DNA PCR C. pneumoniae DNA (PCR) Coronavirus OC43 (PCR) Coronavirus HKU1 (PCR) Coronavirus 229E (PCR) SARS-CoV-2 (PCR) Coronavirus NL63 (PCR) Human Metapneumovir PCR Influenza Type A (PCR) Influenza Type B (PCR) M. pneumoniae (PCR) Parainfluenza 1 (PCR) Parainfluenza 2 (PCR) Parainfluenza 3 (PCR) Parainfluenza 4 (PCR) RSV (PCR) Entero/Rhino (PCR) Blood Type Antibody Screen Crossmatch 01/23/23 01/23/23 01/23/23 04:52 04:52 04:52 WBC RBC Hgb POC Hgb Hct POC Hct MCV MCH MCHC RDW Std Deviation RDW Coeff of Gennaro Plt Count MPV Immature Gran % (Auto) Neut % (Auto) Lymph % (Auto) [place] % (Auto) Eos % (Auto) Baso % (Auto) Neut # (Auto) Lymph # (Auto) [place] # (Auto) Eos # (Auto) Baso # (Auto) Immature Gran # (Auto) RBC Morphology Polychromasia Hypochromasia Basophilic Stippling Anisocytosis Microcytosis Stomatocytes PT INR APTT PTT Ratio Fibrinogen Sample Site POC pH POC pCO2 POC pO2 POC HCO3 POC Base Excess ABG pH (Temp Correct) ABG pCO2 (Temp Corrct POC ABG pO2 at Pt Temp POC ABG O2 Sat [place] Test VBG pH VBG pCO2 VBG pO2 VBG HCO3 VBG O2 Saturation VBG Base Excess O2 Delivery Device POC O2 Rate 20 POC FiO2 40 40 Tidal Volume 450 450 PEEP 6 POC Sodium Sodium POC Potassium Potassium POC Chloride Chloride Carbon Dioxide POC Total CO2 Anion Gap POC Anion Gap POC BUN BUN Creatinine POC Creatinine Est Cr Clr Drug Dosing Est GFR ( Amer) Est GFR (Non-Af Amer) BUN/Creatinine Ratio Glucose POC Glucose POC Glucose (other) Lactate Calcium POC Ioniz Calcium Carin Magnesium Total Bilirubin AST ALT Alkaline Phosphatase Ammonia Total Creatine Kinase Troponin I High Sens B-Natriuretic Peptide Total Protein Albumin Globulin Albumin/Globulin Ratio Procalcitonin TSH Urine Color Urine Appearance Urine pH Ur Specific [place] Urine Protein Urine Glucose (UA) Urine Ketones Urine Blood Urine Nitrite Urine Bilirubin Urine Urobilinogen Ur Leukocyte Esterase Urine WBC (Auto) Urine RBC (Auto) U Hyaline Cast (Auto) U Epithel Cells (Auto) Urine Bacteria (Auto) Nasal Screen MRSA (PCR) Random Vancomycin Adenovirus (PCR) B. pertussis DNA (PCR) B.parapertussis DNA PCR C. pneumoniae DNA (PCR) Coronavirus OC43 (PCR) Coronavirus HKU1 (PCR) Coronavirus 229E (PCR) SARS-CoV-2 (PCR) Coronavirus NL63 (PCR) Human Metapneumovir PCR Influenza Type A (PCR) Influenza Type B (PCR) M. pneumoniae (PCR) Parainfluenza 1 (PCR) Parainfluenza 2 (PCR) Parainfluenza 3 (PCR) Parainfluenza 4 (PCR) RSV (PCR) Entero/Rhino (PCR) Blood Type Antibody Screen Crossmatch 01/23/23 01/23/23 01/23/23 04:52 04:52 04:52 WBC RBC Hgb POC Hgb Hct POC Hct MCV MCH MCHC RDW Std Deviation RDW Coeff of Gennaro Plt Count MPV Immature Gran % (Auto) Neut % (Auto) Lymph % (Auto) [place] % (Auto) Eos % (Auto) Baso % (Auto) Neut # (Auto) Lymph # (Auto) [place] # (Auto) Eos # (Auto) Baso # (Auto) Immature Gran # (Auto) RBC Morphology Polychromasia Hypochromasia Basophilic Stippling Anisocytosis Microcytosis Stomatocytes PT INR APTT PTT Ratio Fibrinogen Sample Site POC pH POC pCO2 POC pO2 POC HCO3 POC Base Excess ABG pH (Temp Correct) ABG pCO2 (Temp Corrct POC ABG pO2 at Pt Temp POC ABG O2 Sat [place] Test VBG pH VBG pCO2 VBG pO2 VBG HCO3 VBG O2 Saturation VBG Base Excess O2 Delivery Device POC O2 Rate POC FiO2 Tidal Volume PEEP 6 POC Sodium 144 144 Sodium POC Potassium 4.1 4.1 Potassium POC Chloride Chloride Carbon Dioxide POC Total CO2 Anion Gap POC Anion Gap POC BUN BUN Creatinine POC Creatinine Est Cr Clr Drug Dosing Est GFR ( Amer) Est GFR (Non-Af Amer) BUN/Creatinine Ratio Glucose POC Glucose POC Glucose (other) Lactate Calcium POC Ioniz Calcium Carin Magnesium Total Bilirubin AST ALT Alkaline Phosphatase Ammonia Total Creatine Kinase Troponin I High Sens B-Natriuretic Peptide Total Protein Albumin Globulin Albumin/Globulin Ratio Procalcitonin TSH Urine Color Urine Appearance Urine pH Ur Specific [place] Urine Protein Urine Glucose (UA) Urine Ketones Urine Blood Urine Nitrite Urine Bilirubin Urine Urobilinogen Ur Leukocyte Esterase Urine WBC (Auto) Urine RBC (Auto) U Hyaline Cast (Auto) U Epithel Cells (Auto) Urine Bacteria (Auto) Nasal Screen MRSA (PCR) Random Vancomycin Adenovirus (PCR) B. pertussis DNA (PCR) B.parapertussis DNA PCR C. pneumoniae DNA (PCR) Coronavirus OC43 (PCR) Coronavirus HKU1 (PCR) Coronavirus 229E (PCR) SARS-CoV-2 (PCR) Coronavirus NL63 (PCR) Human Metapneumovir PCR Influenza Type A (PCR) Influenza Type B (PCR) M. pneumoniae (PCR) Parainfluenza 1 (PCR) Parainfluenza 2 (PCR) Parainfluenza 3 (PCR) Parainfluenza 4 (PCR) RSV (PCR) Entero/Rhino (PCR) Blood Type Antibody Screen Crossmatch 01/23/23 01/23/23 01/23/23 07:46 09:17 11:32 WBC RBC Hgb POC Hgb Hct POC Hct MCV MCH MCHC RDW Std Deviation RDW Coeff of Gennaro Plt Count MPV Immature Gran % (Auto) Neut % (Auto) Lymph % (Auto) [place] % (Auto) Eos % (Auto) Baso % (Auto) Neut # (Auto) Lymph # (Auto) [place] # (Auto) Eos # (Auto) Baso # (Auto) Immature Gran # (Auto) RBC Morphology Polychromasia Hypochromasia Basophilic Stippling Anisocytosis Microcytosis Stomatocytes PT INR APTT PTT Ratio Fibrinogen Sample Site POC pH POC pCO2 POC pO2 POC HCO3 POC Base Excess ABG pH (Temp Correct) ABG pCO2 (Temp Corrct POC ABG pO2 at Pt Temp POC ABG O2 Sat [place] Test VBG pH 7.36 VBG pCO2 44 VBG pO2 37 VBG HCO3 25 VBG O2 Saturation 67.2 VBG Base Excess -0.8 O2 Delivery Device POC O2 Rate POC FiO2 Tidal Volume PEEP POC Sodium Sodium POC Potassium Potassium POC Chloride Chloride Carbon Dioxide POC Total CO2 Anion Gap POC Anion Gap POC BUN BUN Creatinine POC Creatinine Est Cr Clr Drug Dosing Est GFR ( Amer) Est GFR (Non-Af Amer) BUN/Creatinine Ratio Glucose POC Glucose 135 H 143 H POC Glucose (other) Lactate Calcium POC Ioniz Calcium Carin Magnesium Total Bilirubin AST ALT Alkaline Phosphatase Ammonia Total Creatine Kinase Troponin I High Sens B-Natriuretic Peptide Total Protein Albumin Globulin Albumin/Globulin Ratio Procalcitonin TSH Urine Color Urine Appearance Urine pH Ur Specific [place] Urine Protein Urine Glucose (UA) Urine Ketones Urine Blood Urine Nitrite Urine Bilirubin Urine Urobilinogen Ur Leukocyte Esterase Urine WBC (Auto) Urine RBC (Auto) U Hyaline Cast (Auto) U Epithel Cells (Auto) Urine Bacteria (Auto) Nasal Screen MRSA (PCR) Random Vancomycin 16.1 Adenovirus (PCR) B. pertussis DNA (PCR) B.parapertussis DNA PCR C. pneumoniae DNA (PCR) Coronavirus OC43 (PCR) Coronavirus HKU1 (PCR) Coronavirus 229E (PCR) SARS-CoV-2 (PCR) Coronavirus NL63 (PCR) Human Metapneumovir PCR Influenza Type A (PCR) Influenza Type B (PCR) M. pneumoniae (PCR) Parainfluenza 1 (PCR) Parainfluenza 2 (PCR) Parainfluenza 3 (PCR) Parainfluenza 4 (PCR) RSV (PCR) Entero/Rhino (PCR) Blood Type Antibody Screen Crossmatch 01/23/23 01/23/23 01/23/23 12:17 16:25 18:07 WBC 9.62 RBC 2.52 L Hgb 7.2 L POC Hgb Hct 23.3 L POC Hct MCV 92.5 MCH 28.6 MCHC 30.9 L RDW Std Deviation 53.2 H RDW Coeff of Gennaro 15.9 H Plt Count 325 MPV 10.0 Immature Gran % (Auto) 0.6 Neut % (Auto) 80.3 Lymph % (Auto) 10.9 [place] % (Auto) 5.8 Eos % (Auto) 2.2 Baso % (Auto) 0.2 Neut # (Auto) 7.72 H Lymph # (Auto) 1.05 L [place] # (Auto) 0.56 Eos # (Auto) 0.21 Baso # (Auto) 0.02 Immature Gran # (Auto) 0.06 RBC Morphology Unremarkable Polychromasia Hypochromasia Basophilic Stippling Anisocytosis Microcytosis Stomatocytes PT INR APTT 60.7 H* PTT Ratio 2.2 Fibrinogen Sample Site POC pH POC pCO2 POC pO2 POC HCO3 POC Base Excess ABG pH (Temp Correct) ABG pCO2 (Temp Corrct POC ABG pO2 at Pt Temp POC ABG O2 Sat [place] Test VBG pH VBG pCO2 VBG pO2 VBG HCO3 VBG O2 Saturation VBG Base Excess O2 Delivery Device POC O2 Rate POC FiO2 Tidal Volume PEEP POC Sodium Sodium POC Potassium Potassium POC Chloride Chloride Carbon Dioxide POC Total CO2 Anion Gap POC Anion Gap POC BUN BUN Creatinine POC Creatinine Est Cr Clr Drug Dosing Est GFR ( Amer) Est GFR (Non-Af Amer) BUN/Creatinine Ratio Glucose POC Glucose 164 H POC Glucose (other) Lactate Calcium POC Ioniz Calcium Carin Magnesium Total Bilirubin AST ALT Alkaline Phosphatase Ammonia Total Creatine Kinase Troponin I High Sens B-Natriuretic Peptide Total Protein Albumin Globulin Albumin/Globulin Ratio Procalcitonin TSH Urine Color Urine Appearance Urine pH Ur Specific [place] Urine Protein Urine Glucose (UA) Urine Ketones Urine Blood Urine Nitrite Urine Bilirubin Urine Urobilinogen Ur Leukocyte Esterase Urine WBC (Auto) Urine RBC (Auto) U Hyaline Cast (Auto) U Epithel Cells (Auto) Urine Bacteria (Auto) Nasal Screen MRSA (PCR) Random Vancomycin Adenovirus (PCR) B. pertussis DNA (PCR) B.parapertussis DNA PCR C. pneumoniae DNA (PCR) Coronavirus OC43 (PCR) Coronavirus HKU1 (PCR) Coronavirus 229E (PCR) SARS-CoV-2 (PCR) Coronavirus NL63 (PCR) Human Metapneumovir PCR Influenza Type A (PCR) Influenza Type B (PCR) M. pneumoniae (PCR) Parainfluenza 1 (PCR) Parainfluenza 2 (PCR) Parainfluenza 3 (PCR) Parainfluenza 4 (PCR) RSV (PCR) Entero/Rhino (PCR) Blood Type Antibody Screen Crossmatch 01/23/23 01/24/23 01/24/23 21:08 01:15 03:55 WBC 7.62 RBC 2.69 L Hgb 7.8 L POC Hgb Hct 24.3 L POC Hct MCV 90.3 MCH 29.0 MCHC 32.1 RDW Std Deviation 51.8 H RDW Coeff of Gennaro 15.8 H Plt Count 286 MPV 10.3 Immature Gran % (Auto) 0.8 Neut % (Auto) 79.9 Lymph % (Auto) 13.0 [place] % (Auto) 4.1 Eos % (Auto) 2.1 Baso % (Auto) 0.1 Neut # (Auto) 6.09 Lymph # (Auto) 0.99 L [place] # (Auto) 0.31 Eos # (Auto) 0.16 Baso # (Auto) 0.01 Immature Gran # (Auto) 0.06 RBC Morphology Polychromasia Hypochromasia Present Basophilic Stippling Anisocytosis Microcytosis Stomatocytes PT INR APTT 35.1 H PTT Ratio 1.2 Fibrinogen Sample Site POC pH POC pCO2 POC pO2 POC HCO3 POC Base Excess ABG pH (Temp Correct) ABG pCO2 (Temp Corrct POC ABG pO2 at Pt Temp POC ABG O2 Sat [place] Test VBG pH VBG pCO2 VBG pO2 VBG HCO3 VBG O2 Saturation VBG Base Excess O2 Delivery Device POC O2 Rate POC FiO2 Tidal Volume PEEP POC Sodium Sodium 143 POC Potassium Potassium 3.7 POC Chloride Chloride 109 H Carbon Dioxide 23 POC Total CO2 Anion Gap 11 POC Anion Gap POC BUN BUN 65 H Creatinine 2.99 H D POC Creatinine Est Cr Clr Drug Dosing 22.7 Est GFR ( Amer) 22.9 Est GFR (Non-Af Amer) 19.8 BUN/Creatinine Ratio 21.7 H Glucose 177 H POC Glucose 150 H POC Glucose (other) Lactate Calcium 8.3 L POC Ioniz Calcium Carin Magnesium Total Bilirubin AST ALT Alkaline Phosphatase Ammonia Total Creatine Kinase Troponin I High Sens B-Natriuretic Peptide Total Protein Albumin Globulin Albumin/Globulin Ratio Procalcitonin TSH Urine Color Urine Appearance Urine pH Ur Specific [place] Urine Protein Urine Glucose (UA) Urine Ketones Urine Blood Urine Nitrite Urine Bilirubin Urine Urobilinogen Ur Leukocyte Esterase Urine WBC (Auto) Urine RBC (Auto) U Hyaline Cast (Auto) U Epithel Cells (Auto) Urine Bacteria (Auto) Nasal Screen MRSA (PCR) Random Vancomycin 21.1 H Adenovirus (PCR) B. pertussis DNA (PCR) B.parapertussis DNA PCR C. pneumoniae DNA (PCR) Coronavirus OC43 (PCR) Coronavirus HKU1 (PCR) Coronavirus 229E (PCR) SARS-CoV-2 (PCR) Coronavirus NL63 (PCR) Human Metapneumovir PCR Influenza Type A (PCR) Influenza Type B (PCR) M. pneumoniae (PCR) Parainfluenza 1 (PCR) Parainfluenza 2 (PCR) Parainfluenza 3 (PCR) Parainfluenza 4 (PCR) RSV (PCR) Entero/Rhino (PCR) Blood Type Antibody Screen Crossmatch 01/24/23 01/24/23 09:13 11:20 WBC RBC Hgb POC Hgb Hct POC Hct MCV MCH MCHC RDW Std Deviation RDW Coeff of Gennaro Plt Count MPV Immature Gran % (Auto) Neut % (Auto) Lymph % (Auto) [place] % (Auto) Eos % (Auto) Baso % (Auto) Neut # (Auto) Lymph # (Auto) [place] # (Auto) Eos # (Auto) Baso # (Auto) Immature Gran # (Auto) RBC Morphology Polychromasia Hypochromasia Basophilic Stippling Anisocytosis Microcytosis Stomatocytes PT INR APTT 38.7 H PTT Ratio 1.4 Fibrinogen Sample Site POC pH POC pCO2 POC pO2 POC HCO3 POC Base Excess ABG pH (Temp Correct) ABG pCO2 (Temp Corrct POC ABG pO2 at Pt Temp POC ABG O2 Sat [place] Test VBG pH VBG pCO2 VBG pO2 VBG HCO3 VBG O2 Saturation VBG Base Excess O2 Delivery Device POC O2 Rate POC FiO2 Tidal Volume PEEP POC Sodium Sodium POC Potassium Potassium POC Chloride Chloride Carbon Dioxide POC Total CO2 Anion Gap POC Anion Gap POC BUN BUN Creatinine POC Creatinine Est Cr Clr Drug Dosing Est GFR ( Amer) Est GFR (Non-Af Amer) BUN/Creatinine Ratio Glucose POC Glucose 159 H POC Glucose (other) Lactate Calcium POC Ioniz Calcium Carin Magnesium Total Bilirubin AST ALT Alkaline Phosphatase Ammonia Total Creatine Kinase Troponin I High Sens B-Natriuretic Peptide Total Protein Albumin Globulin Albumin/Globulin Ratio Procalcitonin TSH Urine Color Urine Appearance Urine pH Ur Specific [place] Urine Protein Urine Glucose (UA) Urine Ketones Urine Blood Urine Nitrite Urine Bilirubin Urine Urobilinogen Ur Leukocyte Esterase Urine WBC (Auto) Urine RBC (Auto) U Hyaline Cast (Auto) U Epithel Cells (Auto) Urine Bacteria (Auto) Nasal Screen MRSA (PCR) Random Vancomycin Adenovirus (PCR) B. pertussis DNA (PCR) B.parapertussis DNA PCR C. pneumoniae DNA (PCR) Coronavirus OC43 (PCR) Coronavirus HKU1 (PCR) Coronavirus 229E (PCR) SARS-CoV-2 (PCR) Coronavirus NL63 (PCR) Human Metapneumovir PCR Influenza Type A (PCR) Influenza Type B (PCR) M. pneumoniae (PCR) Parainfluenza 1 (PCR) Parainfluenza 2 (PCR) Parainfluenza 3 (PCR) Parainfluenza 4 (PCR) RSV (PCR) Entero/Rhino (PCR) Blood Type Antibody Screen Crossmatch Diagnostic Findings Microbiology 01/23/23 Unknown Sputum,Vent Suction Gram Stain - Final 01/23/23 Unknown Sputum,Vent Suction Sputum Culture - Preliminary Gram negative bacilli 01/22/23 15:15 Urine,Straight Cath Urine Culture - Final Klebsiella oxytoca 01/22/23 14:11 Blood Aerobic Blood Culture - Preliminary No growth in Aerobic bottle after 24 hours. 01/22/23 14:11 Blood Anaerobic Blood Culture - Preliminary No growth in Anaerobic bottle after 24 hours. 01/22/23 13:20 Blood Aerobic Blood Culture - Preliminary No growth in Aerobic bottle after 24 hours. 01/22/23 13:20 Blood Anaerobic Blood Culture - Preliminary No growth in Anaerobic bottle after 24 hours. Chest X-Ray 01/22/23 13:13 XR chest 1V portable CLINICAL HISTORY: Dyspnea. COMPARISON STUDY: Chest CT January 19, 2023. Chest radiograph January 20, 2023. FINDINGS: Endovascular thoracic aortic stent graft and right PICC are in place. There is no pneumothorax or pleural effusion. No consolidation is identified. There is no evidence for pulmonary edema. The cardiomediastinal silhouette is stable. IMPRESSION: No acute cardiopulmonary findings. No change in appearance of the chest. ACT 112: Negative or not required by law. Electronically signed by: Peterson Hart M.D. 01/22/2023 1:[address] 01/22/23 13:44 CT OF THE CHEST WITHOUT IV CONTRAST CLINICAL HISTORY: Shortness of breath. Respiratory failure. COMPARISON STUDY: Chest CTs January 12, 2023 and January 19, 2023. Chest radiograph performed earlier today. CT DOSE: 1087.62 mGy.cm TECHNIQUE: Axial images of the chest were obtained without IV contrast. Images were reviewed in the axial, sagittal, and coronal planes. IV contrast was not administered for this examination. Automated exposure control was utilized for the study. A dose lowering technique was utilized adhering to the principles of ALARA. FINDINGS: Thoracic aortic endovascular stent graft is in place. Aneurysmal dilatation of the descending thoracic aorta is stable to slightly increased since prior exam, measuring 5.1 cm. Size of the heart is normal. There is no pericardial effusion. Left pleural effusion has decreased in size since prior exam. Emphysema is present. There is no consolidation to suggest pneumonia. Subpleural opacities reflect atelectasis. Abdominal aortic stent graft is partially imaged. The appearance of the visualized portions of the abdominal aorta is unchanged. A 2 mm calculus within the upper pole of the left kidney is incidentally noted. There are moderate secretions within the trachea and mainstem bronchi. IMPRESSION: 1. No consolidation to suggest pneumonia. 2. Emphysema. 3. Moderate secretions within the trachea and mainstem bronchi. 4. Thoracic aortic endovascular stent graft in place. Aneurysmal dilatation of the descending thoracic aorta is stable to slightly increased since prior CT measuring 5.1 cm. This is suboptimally assessed on this unenhanced exam. ACT 112: Negative or not required by law. Electronically signed by: Peterson Hart M.D. 01/22/2023 2:[address] 01/22/23 15:53 CT OF THE HEAD WITHOUT CONTRAST CLINICAL HISTORY: acute lethargy, AMS COMPARISON STUDY: Head CT January 12, 2023. CT DOSE: 1100.35 mGy.cm TECHNIQUE: Helical axial images of the head were obtained without IV contrast. Automated exposure control was utilized for the study. A dose lowering technique was utilized adhering to the principles of ALARA. FINDINGS: No acute intracranial hemorrhage, midline shift or mass effect is present. The ventricular system is stable. White matter hypodensities are unchanged and favor small vessel disease. The basal cisterns are patent. No extra-axial collections are present. There are no findings to suggest acute dural sinus thrombosis or acute territorial infarct. No significant calvarial abnormalities are present. Visualized portions of the sinuses and mastoid air cells are clear. IMPRESSION: No acute intracranial findings. No change in appearance of the brain. ACT 112: Negative or not required by law. Electronically signed by: Peterson Hart M.D. 01/22/2023 4:31 PM Abdomen/Pelvis CT 01/22/23 18:23 CT OF THE ABDOMEN AND PELVIS WITHOUT CONTRAST CLINICAL HISTORY: eval vascular stent and bleeding COMPARISON STUDY: CTA of the abdomen and pelvis January 12, 2023. TECHNIQUE: Axial images of the abdomen and pelvis were obtained without IV contrast. Images were reviewed in the axial, sagittal, and coronal planes. Automated exposure control was utilized for the study. A dose lowering technique was utilized adhering to the principles of ALARA. FINDINGS: The thoracic aortic aneurysm and thoracic aortic stent graft are better depicted on the chest CT, reported earlier today. Abdominal aortic stent graft is in place. Aneurysmal dilatation of the aorta at the level of the diaphragmatic hiatus, measuring 4.7 cm, is unchanged since CT of January 12, 2023. Aneurysmal dilatation of the right common iliac artery measuring 2.9 cm is unchanged. Mild aneurysmal dilatation of the left common femoral artery is unchanged. A 2.2 cm outpouching arising from the anterior aspect of the right common femoral artery with adjacent stranding is similar to prior CT. The vessels and stent grafts are suboptimally assessed on this unenhanced exam however there is no evidence for rupture. Bilateral renal calculi measure up to 8 mm. There are no ureteral calculi and there is no hydronephrosis. A Jerry balloon and gas within the bladder are present. The bladder is collapsed. Low- attenuation bilateral renal lesions are suboptimally assessed on this exam but favor cysts. There is no evidence for a bowel obstruction. Extensive colonic diverticulosis is present without evidence for acute diverticulitis. There has been no significant change in appearance of the abdomen or pelvis since CT of January 12, 2023. IMPRESSION: 1. No significant change in appearance of the abdomen and pelvis since CT of January 12, 2023. 2. Suboptimal evaluation of thoracic and abdominal aortic stent grafts on this unenhanced exam. No evidence for rupture. No significant change in size of the aneurysms of the abdominal aorta, right common iliac artery and left common femoral artery. 3. 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 4. Colonic diverticulosis. No evidence for acute diverticulitis. 5. Bilateral nephrolithiasis. No ureteral calculi or hydronephrosis. ACT 112: Negative or not required by law. Electronically signed by: Peterson Hart M.D. 01/22/2023 8:19 PM Chest X-Ray 01/22/23 21:33 XR chest 1V portable HISTORY: Endotracheal tube placement. COMPARISON: Chest 01/22/2023. FINDINGS: The endotracheal tube terminates 3.5 cm and the gerson. Nasogastric tube terminates in the stomach. A right PICC terminates in the SVC. An aortic stent graft is again noted. No pneumothorax. No pleural effusions. No focal lung consolidations to suggest a pneumonia. No evidence for pulmonary edema. Emphysema again noted. IMPRESSION: Satisfactory support line placement as described above. Otherwise, no acute process within the chest. ACT 112: Negative or not required by law. Electronically signed by: Alvarado Bo M.D. 01/22/2023 10:55 PM Chest X-Ray 01/23/23 16:45 XR chest 1V portable HISTORY: picc line placement to right arm. COMPARISON: Chest 01/22/2023. FINDINGS: The right PICC terminates at the distal SVC/superior cavoatrial junction. The endotracheal tube terminates 3.2 cm from the gerson. A nasogastric tube terminates 11 diaphragm. The tip is not included on this study. An aortic stent graft is again noted. No pneumothorax. Bibasilar interstitial thickening persists. IMPRESSION: Satisfactory support line placement as above. ACT 112: Negative or not required by law. Electronically signed by: Alvarado Bo M.D. 01/23/2023 5:23 PM Medications Administered Home Medications Medication Instructions Recorded Confirmed Last Taken aspirin 81 mg tablet,delayed 81 mg PO QAM 01/18/19 01/22/23 01/22/23 release (Nora Low Dose Aspirin) amlodipine 5 mg tablet 5 mg PO QAM 03/29/22 01/22/23 01/22/23 metoprolol tartrate 100 mg tablet 100 mg PO BID 03/29/22 01/22/23 01/22/23 09:00 albuterol sulfate 90 mcg/actuation 2 puff inhalation Q6H PRN Wheezing 01/10/23 01/22/23 Unknown aerosol inhaler clopidogrel 75 mg tablet (Plavix) 75 mg PO QAM 01/10/23 01/22/23 01/22/23 fluticasone furoate 100 1 inh inhalation QAM 01/10/23 01/22/23 01/22/23 mcg-vilanterol 25 mcg/dose inhalation powder (Breo Ellipta) oxycodone 5 mg tablet 5 mg PO Q4H PRN Pain 01/10/23 01/22/23 Unknown apixaban 5 mg tablet (Eliquis) 5 mg PO BID #50 tabs 01/21/23 01/22/23 01/22/23 09:00 daptomycin 350 mg/50 mL in 0.9 % 850 mg IV Q48H 01/22/23 01/22/23 Unknown sodium chloride intravenous piggyback insulin regular human 100 unit/mL 1 sliding scale dose subcut ACHS 01/22/23 01/22/23 Unknown injection solution (Humulin R PRN BLOOD SUGAR CONTROL Regular U-100 Insulin) naloxone 4 mg/actuation nasal 4 mg intranasal DIRECTED PRN 01/22/23 01/22/23 Unknown spray (Narcan) Opioid Overdose Active Medications Generic Name Dose Route Start Last Admin Trade Name Mary Anne PRN Reason Stop Dose Admin Acetaminophen 650 mg 01/22/23 18:14 01/24/23 11:35 Acetaminophen 325 Mg Tab PO 02/21/23 18:13 650 mg Q4H PRN Administration Pain or Fever Aspirin 81 mg 01/24/23 09:00 01/24/23 09:50 Aspirin 81 Mg Chew PO 02/23/23 08:59 81 mg DAILY GABY Administration Clopidogrel Bisulfate 75 mg 01/24/23 09:00 01/24/23 09:49 Clopidogrel Bisulfate 75 Mg Tab PO 02/23/23 08:59 75 mg QAM GABY Administration Enteral Nutritional Formula 1,000 ml 01/23/23 12:30 01/23/23 13:54 Novasource Renal 2.0 Judah 1000ml Bag OG 02/22/23 12:29 1,000 ml UD GABY Administration Protocol Fentanyl Citrate 50 mcg 01/22/23 21:35 01/24/23 11:42 Fentanyl Citrate Pf 100 Mcg/2 Ml Vial IV 02/05/23 21:34 50 mcg Q15M PRN Administration Pain Fluticasone/Vilanterol 1 puffs 01/23/23 09:00 01/24/23 09:50 Fluticasone/Vilanterol 100/25mcg 14 Puffs/Inhaler INH 02/22/23 08:59 Not Given QAM GABY Pantoprazole Sodium 40 mg/ 10 mls @ 5 mls/min 01/22/23 21:00 01/24/23 09:51 Syringe IV 02/21/23 20:59 5 mls/min BID GABY Administration Propofol 1,000 mg in 100 mls @ 17.073 mls/hr 01/22/23 21:45 01/24/23 11:42 Diprivan IV 01/25/23 21:44 35 mcg/kg/min .[id number] GABY 17.1 mls/hr Administration Protocol 35 MCG/KG/MIN Norepinephrine Bitartrate 4 mg in 250 mls @ 0 mls/hr 01/22/23 22:00 01/24/23 07:06 Levophed/D5w IV 02/21/23 21:59 0 mcg/kg/min .Q0M GABY 0 mls/hr Titration Protocol 0 MCG/KG/MIN Lactated Ringer's 1,000 mls @ 125 mls/hr 01/23/23 09:30 01/24/23 11:50 Lr IV 02/22/23 09:29 0 mls/hr .Q8H GABY Infusion Heparin Sodium/Dextrose 25,000 units in 500 mls @ 21 mls/hr 01/23/23 09:45 01/24/23 11:54 Heparin Sodium/Dextrose IV 02/22/23 09:44 1,050 units/hr .[id number] GABY 21 mls/hr Titration Protocol 1,050 UNITS/HR Vancomycin HCl 750 mg/ Sodium 265 mls @ 200 mls/hr 01/24/23 12:00 01/24/23 11:42 Chloride IV 02/07/23 11:59 200 mls/hr TODAY@1200 GABY Administration Piperacillin Sod/Tazobactam 100 mls @ 25 mls/hr 01/24/23 09:00 01/24/23 09:49 Sod 4.5 gm/ Dextrose IV 02/07/23 00:59 25 mls/hr Q8H GABY Administration Protocol Miscellaneous 1 each 01/22/23 21:00 01/24/23 11:42 Icu Protocol For Hyperglycemia N/A 01/24/23 20:59 Not Given ACHS GABY
--- NOTE | 2023-01-24 13:09 | Nephrology Progress Note ---
Date of Service January 24, 2023 Assessment & Plan (1) Acute renal disease: (2) Complicated UTI (urinary tract infection): (3) Acute respiratory failure with hypoxia: (4) AMS (altered mental status): (5) Anemia: (6) Generalized weakness: Plan 72-year old gentleman with recent multiple prolonged hospitalization for aortic dissection repair, acute kidney injury requiring dialysis, bacteremia and UTI, presented to the hospital with respiratory failure and altered mental status requiring intubation. Required dialysis for acute kidney injury during hospitalization in December however has been off of dialysis since 01/14/2023. No sign of volume overload. Creatinine staying relatively stable around 3.5 with acceptable electrolytes. Decent urine output and acceptable volume status. Renal function staying stable in fact there is slight improvement in creatinine to 3.0 this morning with acceptable electrolytes. Decent urine output. - Continue to monitor renal function, electrolyte, and output while continuing with hemodynamic support. Keep off of dialysis -- Dose medications for eGFR less than 30, avoid all nephrotoxic medications. Will follow. Admission and Anticipated Discharge Date Admission Date: January 22, 2023 Laura Marrufo was seen and evaluated in ICU this morning. He is still intubated however responds to painful stimuli. Has decent urine output. Renal function stable, creatinine down to 3.0, electrolyte acceptable. Blood pressure better. Review of Systems Review of Systems: Detailed review of system was not possible as patient was intubated and sedated. Physical Exam Constitutional: WD/WN, vitals as above + ill appearing and + mechanically ventilated Respiratory: Auscultation: lungs clear to auscultation bilaterally Cardiovascular: RRR, no murmur, no edema Musculoskeletal: Extremities: extremities normal to inspection Skin: no rashes, warm and dry Results & Data Vital Signs (Past 12 Hours) Vital Signs Temp Pulse Resp BP Pulse Ox O2 Del Method FiO2 01/24/23 12:00 137/72 01/24/23 12:00 37.9 C H 78 19 90 01/24/23 12:00 30 01/24/23 11:00 38.0 C H 77 20 95 01/24/23 11:00 130/77 01/24/23 10:00 136/78 01/24/23 10:00 38.0 C H 79 23 95 01/24/23 10:00 80 21 92 30 01/24/23 09:00 37.8 C H 81 42 H 95 01/24/23 09:00 160/90 H 01/24/23 08:00 37.5 C 75 32 H 95 01/24/23 08:00 147/87 H 01/24/23 08:00 30 01/24/23 08:00 Mechanical Vent 30 01/24/23 07:19 76 22 94 30 01/24/23 07:00 151/86 H 01/24/23 07:00 37.4 C 79 24 92 01/24/23 06:30 37.2 C 77 21 95 01/24/23 06:00 129/71 01/24/23 06:00 37.2 C 71 20 90 01/24/23 05:30 37.1 C 76 18 94 01/24/23 05:00 37.1 C 70 19 92 01/24/23 05:00 120/76 01/24/23 04:30 37.0 C 69 18 93 01/24/23 04:00 118/71 01/24/23 04:00 37.0 C 68 18 92 01/24/23 04:00 30 01/24/23 03:30 36.9 C 71 18 92 01/24/23 03:15 74 18 93 30 01/24/23 03:00 36.9 C 72 18 95 01/24/23 03:00 138/84 01/24/23 02:30 36.9 C 71 18 94 01/24/23 02:00 36.9 C 70 19 94 01/24/23 02:00 128/78 01/24/23 01:30 37.0 C 72 18 94 PG Care Time/CCT Total # of Minutes Spent Total Time Spent with Patient: Total time spent is greater than 50% in coordination of care (as documented) at patient's floor/unit and/or counseling patient: Coding Level of Care Code 67779 SUB INP/OBS CARE 2/35MIN Diagnoses Acute renal disease N28.9 Complicated UTI (urinary tract infection) N39.0 Acute respiratory failure with hypoxia J96.01 AMS (altered mental status) R41.0 Altered mental status type: disorientation Anemia D64.9 Generalized weakness R53.1 (4) AMS (altered mental status) Altered mental status type: disorientation Qualified Code(s): R41.0 - Disorientation, unspecified
[2023-01-24] MEDS ORDERED: DEXTROSE 50% 50 ML SYRINGE IV PRN (17:55)
[2023-01-24] MEDS ORDERED: GLUCAGON FOR INJ 1 MG VIAL SQ PRN (17:55)
[2023-01-24] MEDS: INSULIN ASPART PER UNIT CHARGE SC SCH ×2 (18:16→23:27)
[2023-01-24 19:00] LABS: Partial Thromboplastin Ratio 1.5
[2023-01-24 19:20] LABS: Partial Thromboplastin Time 40.9 Seconds (21.0-31.0)
[2023-01-25] MEDS: LACTATED RINGER'S 1,000 ML IV SCH (01:40)
[2023-01-25] MEDS: CEFEPIME 1,000 MG in SYRINGE 0 ML IV SCH ×2 (01:54→13:21)
[2023-01-25] MEDS: PIPERACILLIN/TAZOBACTAM 4.5 GM in DEXTROSE 5% MINI-B 100 ML IV SCH (02:06)
--- NOTE | 2023-01-25 02:22 | Magnetic Resonance Report ---
Exam(s): MRI HEAD Without Contrast EXAM: MR Head Without Intravenous Contrast CLINICAL HISTORY: Reason for exam: altered mental status, rule out stroke. TECHNIQUE: Magnetic resonance images of the head/brain without intravenous contrast in multiple planes. COMPARISON: Comparison made to prior head CT from January 22, 2023. FINDINGS: Brain: Moderate nonspecific white matter changes. The flow voids at the base of the brain are intact. No mass. No hemorrhage. No acute infarct. Ventricles: Evidence of ventriculomegaly. Bones/joints: Unremarkable. Sinuses: Chronic right maxillary, sphenoid and ethmoid sinusitis. No acute sinusitis. Mastoid air cells: There is a tiny amount of fluid in the right mastoid air cells. No mastoid effusion. Orbits: Unremarkable as visualized. IMPRESSION: No evidence of acute intracranial pathology. Electronically signed by: Lucy Lion MD 01/25/23 02:21 AM
[2023-01-25] MEDS: INSULIN ASPART PER UNIT CHARGE SC SCH ×4 (05:37→23:58)
[2023-01-25 05:49] LABS: Basophils # (auto) 0.02 K/uL (0.00-0.20); Basophils % (auto) 0.3 %; Eosinophils # (auto) 0.18 K/uL (0.00-0.50); Eosinophils % (auto) 2.6 %; Hematocrit (blood only) 23.9 % (42.0-52.0); Hemoglobin 7.5 g/dl (14.0-18.0); Immature Granulocytes # (auto) 0.06 K/uL (0.01-0.20); Immature Granulocytes % (auto) 0.9 %; Lymphocytes # (auto) 1.07 K/uL (1.20-3.40); Lymphocytes % (auto) 15.2 %; Mean Corpuscular Hemoglobin 28.4 pg (25.0-34.0); Mean Corpuscular Hgb Conc 31.4 g/dL (32.0-36.0); Mean Corpuscular Volume 90.5 fL (80.0-100.0); Mean Platelet Volume 10.1 fL (9.4-12.4); Monocytes # (auto) 0.27 K/uL (0.11-0.59); Monocytes % (auto) 3.8 %; Neutrophils # (auto) 5.42 K/uL (1.40-6.50); Neutrophils % (auto) 77.2 %; Platelet Count 263 K/uL (130-400); RDW Coefficient of Variation 15.4 % (11.5-14.5); RDW Standard Deviation 50.7 fL (36.4-46.3); Red Blood Count 2.64 M/uL (4.70-6.10); White Blood Count 7.02 K/ul (4.8-10.8)
[2023-01-25 06:02] LABS: Albumin Globulin Ratio 0.6 (0.9-2); Albumin Level 2.2 gm/dl (3.4-5.0); BUN Creatinine Ratio 20.1 (10-20); Bilirubin,Total 0.8 mg/dl (0.2-1.0); Creatinine Clr Calc Pharmacy 25.5 ml/min; Est GFR (African American) 25.5 ml/min; Globulin 3.5 gm/dl (2.5-4.0); Magnesium 1.8 mg/dl (1.7-2.4); Phosphorus 3.9 mg/dl (2.5-4.9); Potassium 3.7 mmol/L (3.5-5.1); Total Protein 5.7 gm/dl (6.0-8.3)
[2023-01-25 06:25] LABS: Polychromasia 1+
[2023-01-25 06:27] LABS: Partial Thromboplastin Ratio 1.5
[2023-01-25 06:32] LABS: Partial Thromboplastin Time 43.3 Seconds (21.0-31.0)
[2023-01-25] MEDS: HEPARIN SODIUM/DEXTROSE 25,000 UNITS/500 ML BAG IV SCH (06:34)
[2023-01-25] MEDS ORDERED: POTASSIUM CHLORIDE 20 MEQ/15 ML UDC PO STA (06:37)
[2023-01-25] MEDS: propofoL 1,000 MG/100 ML VIAL IV SCH (07:19)
[2023-01-25] MEDS: FLUTICASONE/VILANTEROL 100/25MCG 14 PUFFS/INHALER INH SCH (07:20)
[2023-01-25] MEDS: MAGNESIUM SULFATE / D5W 1 GM/100 ML BAG IV SCH ×2 (07:22→09:03)
[2023-01-25] MEDS: ASPIRIN 81 MG CHEW PO SCH (07:22)
[2023-01-25] MEDS: CLOPIDOGREL BISULFATE 75 MG TAB PO SCH (07:22)
[2023-01-25] MEDS: PANTOprazole 40 MG in SYRINGE 0 ML IV SCH (07:23)
[2023-01-25] MEDS: ACETAMINOPHEN 325 MG TAB PO PRN (07:32)
[2023-01-25] MEDS ORDERED: ALBUT/IPRATROP 3MG/0.5MG NEB 3 ML VIAL ONE (07:44)
--- NOTE | 2023-01-25 07:51 | Critical Care Progress Note ---
<Statement entered by Savannah Mathews MD - 01/25/23 08:43> Patient seen and examined. Discussed with RN and RT. Agree with note. He seems a little more awake today. Total CC time 37 minutes. Date of Service January 25, 2023 Assessment & Plan (1) Acute renal disease: (2) Endotracheally intubated: (3) Complicated UTI (urinary tract infection): (4) Uremia: (5) Acute encephalopathy: (6) Acute respiratory failure with hypoxia: (7) Acute UTI: (8) AMS (altered mental status): (9) Acute respiratory failure with hypoxia and hypercarbia: (10) Gram-positive bacteremia: (11) Anemia: (12) Pseudoaneurysm of femoral artery following procedure: Plan Reason Critically Ill: 72-year-old male here with a history significant for recent gram-positive cocci bacteremia, respiratory arrest and CAROLINA (discharged on 01/21/23) who was admitted for altered mental status and hypoxemia. Neuro - Encephalopathy -Sedation: Propofol turned off this morning ~6a.m. -MRI brain w/o con: no acute abnormalities or acute ischemia -EEG completed: moderate diffuse slowing of the background, no focal abnormalities or potentially epileptogenic discharges. Neurology consulted, appreciate recommendations. Cardiac - Hx of thoracic aortic aneurysm repair, atrial fibrillation, hx of DVT -Pressors discontinued on 01/23/23 -Echo (01/13/23) mild concentric LVH, normal LV and RV function -Continue heparin drip due to history of afib, prior DVT -Thoracic aortic endovascular stent graft is in place with mild aneurysmal dilation of the ascending thoracic aorta which was considered stable to slightly increased since his prior CT measuring 5.1 cm Respiratory - Hypercarbic respiratory failure -Intubated overnight on 01/23/2023 due to worsening respiratory acidosis -Remains on ventilator at present, attempted spontaneous breathing trial again this morning but discontinued due to resp rate >40 -CT chest w/ con relatively contraindicated due to concern of prior anaphylactic-like reaction. CT chest w/o IV contrast was performed on admission which showed emphysema/secretions in the trachea, mainstem bronchi -Ordered repeat XR chest for tomorrow a.m. GI - -Initiated tube feeds, discontinued IV fluids as currently at goal rate for tube feeds. -Protonix 40 BID -No bowel movements, will start bowel regimen with Senna Renal/Lytes - CAROLINA, hx of bilateral renal infarct and hx of renal cell carcinoma status post partial nephrectomy (2014) -Underwent hemodialysis during last admission due to CAR[place] secondary to bilateral renal infarcts and IV contrast -Renal artery stenting performed at [facility] 12/23/22 -Nephrology consulted, appreciate recommendations -Cr improving from 3.88 on admission, 2.74 today with BUN 55 -Replace lytes as needed - -Acosta catheter placed on 01/22/23 -Urine cx growing klebsiella oxytoca -Monitor I's & O's Endo - -TSH within normal limits -Follow ICU hyperglycemic protocols Heme - -History of anemia of chronic disease. Hgb today of 7.5 -Received 1u PRBCs on 01/22/23 -Continue to monitor CBC, transfuse for Hgb <7 ID - -Tmax of 38C, WBC of 7.02 today -Urine cx growing klebsiella oxytoca, sputum cx growing pansensitive serratia marcescens -Blood cultures NGTD -ID consulted due to recent bacteremia, recommended continuing Vancomycin and restarting Cefepime. Zosyn discontinued. -During recent admission, patient had coag-negative staph and enterococcus bacteremia and presumed endovascular infection. -Was discharged with plan to continue IV daptomycin x6 weeks on 01/21 prior to readmission Lines/IV Access - -Right triple-lumen PICC line in place -Acosta catheter in place (01/22/2023) -18-gauge peripheral IV in the left antecubital fossa DVT Prophylaxis - -SCDs, Heparin drip * Spent expended period speaking with patient's son and daughter at bedside yesterday (01/25). Family expresses frustration that the patient has been in and out of the hospital for almost 2 months and is very worn down- they note that several months ago he was very independent (living alone, working outside, used no assistive devices used for walking). Discussed role of palliative care team to facilitate goals of care conversation, family was receptive to this and consult was placed. Thank you for allowing us to be part of this patient's care. Please refer to Dr. Mathews's documentation for any further recommendations. Admission and Anticipated Discharge Date Admission Date: January 22, 2023 Subjective Patient seen and examined at bedside. No acute events reported overnight, nursing reports adequate urine output and no bowel movements to since admission. Patient had been off of sedation for about ~1 hour at time of encounter, no meaningful ROS or HPI obtainable due to mental status. Review of Systems Review of Systems: Unobtainable due to mental status Physical Exam Constitutional: average body habitus and + mechanically ventilated Eyes: PERRL; no conjunctival abnormality ENMT: Ears: no external ear abnormality Nose: no external nose abnormality Respiratory: Tachypneic with some increased respiratory efforts (on pressure support) Cardiovascular: Rate/Rhythm: regular rate and regular rhythm Mild edema of lower extremities Gastrointestinal (Abdomen): Inspection/Auscultation: abdomen not distended Percussion/Palpation: abdomen soft; no guarding +Bowel sounds present Skin: no rashes, warm and dry Neurologic: Responds to noxious stimuli. Unable to follow verbal commands Genitourinary: Acosta catheter in place Results & Data Results & Data Vital Signs (Past 12 Hours) Vital Signs Temp Pulse Pulse Resp BP BP Pulse Ox 01/25/23 05:44 37.5 C 89 22 155/78 H 93 01/25/23 04:00 37.9 C H 85 19 165/97 H 95 01/25/23 04:00 01/25/23 03:15 78 19 97 01/25/23 03:00 37.9 C H 79 18 183/86 H 94 01/25/23 02:07 38.0 C H 77 19 168/67 H 94 01/25/23 02:00 37.9 C H 78 21 178/83 H 92 01/25/23 01:19 36.3 C L 77 18 193/83 H 100 01/25/23 00:00 01/25/23 00:00 76 01/24/23 23:44 82 21 98 01/24/23 23:00 38.0 C H 81 22 151/84 H 94 01/24/23 22:00 37.9 C H 79 19 152/85 H 95 01/24/23 21:00 37.9 C H 77 22 153/88 H 98 01/24/23 20:00 37.9 C H 76 20 147/79 H 99 01/24/23 20:00 01/24/23 20:00 O2 Del Method FiO2 01/25/23 05:44 Mechanical Vent 30 01/25/23 04:00 Mechanical Vent 01/25/23 04:00 30 01/25/23 03:15 30 01/25/23 03:00 Mechanical Vent 01/25/23 02:07 Mechanical Vent 01/25/23 02:00 Mechanical Vent 01/25/23 01:19 Mechanical Vent 01/25/23 00:00 30 01/25/23 00:00 01/24/23 23:44 30 01/24/23 23:00 Mechanical Vent 01/24/23 22:00 Mechanical Vent 01/24/23 21:00 01/24/23 20:00 Mechanical Vent 01/24/23 20:00 30 01/24/23 20:00 Mechanical Vent 30 Diagnostic Findings Brain MRI 01/25/23 00:05 Exam(s): MRI HEAD Without Contrast EXAM: MR Head Without Intravenous Contrast CLINICAL HISTORY: Reason for exam: altered mental status, rule out stroke. TECHNIQUE: Magnetic resonance images of the head/brain without intravenous contrast in multiple planes. COMPARISON: Comparison made to prior head CT from January 22, 2023. FINDINGS: Brain: Moderate nonspecific white matter changes. The flow voids at the base of the brain are intact. No mass. No hemorrhage. No acute infarct. Ventricles: Evidence of ventriculomegaly. Bones/joints: Unremarkable. Sinuses: Chronic right maxillary, sphenoid and ethmoid sinusitis. No acute sinusitis. Mastoid air cells: There is a tiny amount of fluid in the right mastoid air cells. No mastoid effusion. Orbits: Unremarkable as visualized. IMPRESSION: No evidence of acute intracranial pathology. Electronically signed by: Lucy Lion MD 01/25/23 02:21 AM Resident Activity Tracking Resident Involvement: Resident Care Provided Care Provided: Adult [facility] Medicine (8) AMS (altered mental status) Altered mental status type: disorientation Qualified Code(s): R41.0 - Disorientation, unspecified
[2023-01-25] MEDS ORDERED: ALBUT/IPRATROP 3MG/0.5MG NEB 3 ML VIAL NEB PRN (08:14)
--- NOTE | 2023-01-25 10:20 | Nephrology Progress Note ---
Date of Service January 25, 2023 Assessment & Plan (1) Acute renal disease: (2) Complicated UTI (urinary tract infection): (3) Acute respiratory failure with hypoxia: (4) AMS (altered mental status): (5) Anemia: (6) Generalized weakness: Plan 72-year old gentleman with recent multiple prolonged hospitalization for aortic dissection repair, acute kidney injury requiring dialysis, bacteremia and UTI, presented to the hospital with respiratory failure and altered mental status requiring intubation. Required dialysis for acute kidney injury during hospitalization in December however has been off of dialysis since 01/14/2023. No sign of volume overload. Creatinine staying relatively stable around 3.5 with acceptable electrolytes. Decent urine output and acceptable volume status. Renal function continues to improve, creatinine down to 2.7 this morning with acceptable electrolytes. Decent urine output. - Continue to monitor renal function, electrolyte, and output while continuing with hemodynamic support. Hopefully will not need dialysis at least in near future -- Dose medications for eGFR less than 30, avoid all nephrotoxic medications. Will follow. Admission and Anticipated Discharge Date Admission Date: January 22, 2023 Laura Marrufo was seen and evaluated in ICU this morning. He is still intubated however responds to painful stimuli and doing better on CPAP, Fio2 35%. Has been off of pressor >48 h, BP fine. Has decent urine output. Renal function stable, creatinine continues to improve, down to 2.7 this morning electrolyte acceptable. Review of Systems Review of Systems: Detailed review of system was not possible as patient was intubated and sedated. Physical Exam Constitutional: WD/WN, vitals as above + ill appearing and + mechanically ventilated Neck: normal visual inspection Respiratory: no respiratory distress Auscultation: lungs clear to auscultation bilaterally Cardiovascular: RRR, no murmur, no edema Gastrointestinal (Abdomen): Inspection/Auscultation: abdomen normal to inspection Percussion/Palpation: abdomen soft; abdomen nontender Musculoskeletal: Extremities: extremities normal to inspection Skin: no rashes, warm and dry Results & Data Vital Signs (Past 12 Hours) Vital Signs Temp Pulse Pulse Resp BP BP Pulse Ox 01/25/23 09:00 157/80 H 01/25/23 09:00 37.8 C H 102 H 25 H 90 01/25/23 08:17 90 24 94 01/25/23 08:00 38.0 C H 88 24 95 01/25/23 08:00 187/101 H 01/25/23 08:00 01/25/23 08:00 01/25/23 07:00 183/92 H 01/25/23 07:00 37.8 C H 76 28 H 94 01/25/23 05:44 37.5 C 89 22 155/78 H 93 01/25/23 04:00 37.9 C H 85 19 165/97 H 95 01/25/23 04:00 01/25/23 03:15 78 19 97 01/25/23 03:00 37.9 C H 79 18 183/86 H 94 01/25/23 02:07 38.0 C H 77 19 168/67 H 94 01/25/23 02:00 37.9 C H 78 21 178/83 H 92 01/25/23 01:19 36.3 C L 77 18 193/83 H 100 01/25/23 00:00 01/25/23 00:00 76 01/24/23 23:44 82 21 98 01/24/23 23:00 38.0 C H 81 22 151/84 H 94 O2 Del Method FiO2 01/25/23 09:00 01/25/23 09:00 01/25/23 08:17 30 01/25/23 08:00 30 01/25/23 08:00 01/25/23 08:00 30 01/25/23 08:00 Mechanical Vent 30 01/25/23 07:00 01/25/23 07:00 01/25/23 05:44 Mechanical Vent 30 01/25/23 04:00 Mechanical Vent 01/25/23 04:00 30 01/25/23 03:15 30 01/25/23 03:00 Mechanical Vent 01/25/23 02:07 Mechanical Vent 01/25/23 02:00 Mechanical Vent 01/25/23 01:19 Mechanical Vent 01/25/23 00:00 30 01/25/23 00:00 01/24/23 23:44 30 01/24/23 23:00 Mechanical Vent PG Care Time/CCT Total # of Minutes Spent Total Time Spent with Patient: Total time spent is greater than 50% in coordination of care (as documented) at patient's floor/unit and/or counseling patient: Coding Level of Care Code 81463 SUB INP/OBS CARE MIN Diagnoses Acute renal disease N28.9 Complicated UTI (urinary tract infection) N39.0 Acute respiratory failure with hypoxia J96.01 AMS (altered mental status) R41.0 Altered mental status type: disorientation Anemia D64.9 Generalized weakness R53.1 (4) AMS (altered mental status) Altered mental status type: disorientation Qualified Code(s): R41.0 - Disorientation, unspecified
--- NOTE | 2023-01-25 10:55 | Pharmacy Report ---
Pharmacy PK ABX Note - Date of Service January 25, 2023 - Assessment and Plan Assessment 01/25: * Sputum speciated to pollard sensitive serratia. I suspect cefepime could be de- escalated to ceftriaxone but would defer to ID. * SCr improved again today 2.99->2.74 * Level this morning was 21.3. * Will continue to dose by levels until renal function stabilizes. * Will repeat a reduced dose of vanc today at noon and get another level with AM labs. 01/24 * Cefepime adjusted to zosyn yesterday * SCr continues to downtrend but will continue to dose by levels * Level 21.1 mcg/mL this AM- will give additional 1x dose later today * Await ID consult for further recommendations 01/23 * 72 yo male who was discharged from the hospital 01/21/2023 due to MRSE and E. faecalis bacteremia on daptomycin, respiratory arrest and [place]. Readmitted 01/22 due to altered mental status and hypoxemia, currently being treated for bacteremia, HAP, and UTI * Dapto switched to vanco for better pulmonary coverage * Cefepime started * ID consulted * Unclear what new baseline SCr may be after recent CAROLINA. SCr is trending down today to 3.4. Will dose vancomycin via level. * Level of 16.1 mcg/mL this AM likely therapeutic. Will give additional one- time dose of vancomycin today and repeat random level tomorrow AM Plan Vancomycin * 500mg IV x1 @ 12:00 * Random level in AM Pharmacy will continue to follow and will adjust dose/frequency as necessary. Thank you. Pharmacy has transitioned to AUC monitoring for vancomycin. AUC/DAYNA is the preferred PK/PD target and is associated with decreased risk of nephrotoxicity compared to traditional trough targets.
[2023-01-25] MEDS: SENNA 8.6 MG TAB PO SCH (11:03)
[2023-01-25] MEDS: fentaNYL citrate PF 100 MCG/2 ML VIAL IV PRN (11:41)
[2023-01-25] MEDS: NOVASOURCE RENAL 2.0 CAL 1000ML BAG OG SCH (11:41)
--- NOTE | 2023-01-25 11:52 | Hospitalist Progress Note ---
Date of Service January 25, 2023 Assessment & Plan (1) Acute respiratory failure with hypoxia: Plan: Acute hypoxic respiratory failure Presents on nonrebreather SPO2 sats in the 70s with increased tachypnea ABG revealed respiratory acidosis, patient intubated and started on broad- spectrum antibiotic after he failed BiPAP - CTchest: No consolidation suggestive of pneumonia. Emphysema. Moderate secretions of the trachea and mainstem bronchi, No leukocytosis, procalcitonin elevated Continue cefepime/vancomycin. ID consultation -Sputum cultures growing Serratia Patient was recently admitted to this facility with generalized weakness, after patient had a endovascular graft for aortic aneurysm, and other facility, the course was complicated with persistent gram-positive bacteremia, cardiopulmonary arrest, patient discharged to rehab facility after PICC line placed on 6 weeks course of treatment with daptomycin (2) Acute encephalopathy: Plan: Etiology is uncertain, EEG showed disorganized background with slowing but no epileptiform waves MRI did not show any acute pathology Neurologist on consult, (3) Gram-positive bacteremia: Plan: History of gram-positive bacteremia - [employer]PPORT WORK[employer], S. haemolyticus, E facalis cultures on prior admit. Recurrent SU[employer] bacteremia 01/12-01/13 vanc/dapto sensitive. Endograft at risk of infectious, but no clear infection durin gadmit Repeat blood cultures pending Discharged on daptomycin started 01/12, patient did receive Zosyn 01/12 and 01/13. Was recommended to complete 6 weeks of daptomycin, and dosing was increased to 10 mg/kg's for Enterococcus with DAYNA of 2. With hypoxia and concern for pulmonary involvement Dapto not appropriate for initial treatment, (4) Acute UTI: Plan: urine cultures growing Klebsiella Oxytoca Continue cefepime (5) Atrial fibrillation: Plan: History of A-fib, recent cardiopulmonary arrest DOAC converted to heparin while inpatient and critically ill Admitting EKG normal sinus rhythm without territorial signs of ischemia Following contrast exposure despite premedication at prior hospitalization. Likely 2/2 critical illness, but cannot exclude contrast allergy. Patient is anticoagulated so risk of PE is low, will convert apixaban to heparin while (6) CAROLINA (acute kidney injury): Plan: CAROLINA, transient HD dependence CAROLINA with bilateral renal infarcts and IV contrast administration at last hospitalization Last hemodialysis 01/14/2023, creatinine was stable at around 3.4 since Right IJ was removed 01/18/2023. No further dialysis was anticipated at that time No emergent indication for dialysis on admission - nephrology consulted Anemia Normocytic continue to monitor (7) GERD (gastroesophageal reflux disease): Plan: - PPI (8) Diabetes mellitus, type 2: Plan: ICU hyperglycemia per (9) CAD (coronary artery disease): Plan: - With history of stents Troponin is downtrending from prior, 27.5. Trended. No ischemic findings on EKG, (10) Malnutrition: Plan: continue tube feeds Plan DVT prophylaxis: On heparin Diet: N.p.o. Disposition: ICU CODE STATUS: Full code, family is discussing whether patient would want to convert to DNR/DNI given current circumstance Admission and Anticipated Discharge Date Admission Date: January 22, 2023 Subjective patient seen and examined, still intubated Review of Systems Review of Systems: Unable to obtain, intubated and ventilated Physical Exam Physical Exam: The patient is Intubated and ventilated HEENT--PERRL, EOMI, mucous membranes and oropharynx mildly dry Neck--supple. No JVD. No bruits. Thyroid normal, trachea midline, no adenopathy. Heart--normal S1 and S2. No murmurs, rubs or gallops. Lungs--clear bilaterally, no respiratory distress, no accessory muscle use. Abdomen--normal bowel sounds and soft. Mild epigastric and left sided abdominal pain Extremities--no cyanosis or clubbing. No edema. Dermatologic--normal skin turgor, normal color, no abnormal lymph nodes, no rash. Neurologic--unable to fully assess. Rheumatologic--normal range of motion. Psychiatric--unable to obain Results & Data Results & Data Vital Signs (Past 12 Hours) Vital Signs Temp Pulse Pulse Resp BP BP Pulse Ox 01/25/23 11:28 23 01/25/23 10:00 99.7 F H 90 24 93 01/25/23 10:00 170/79 H 01/25/23 09:00 157/80 H 01/25/23 09:00 100.0 F H 102 H 25 H 90 01/25/23 08:17 90 24 94 01/25/23 08:00 100.4 F H 88 24 95 01/25/23 08:00 187/101 H 01/25/23 08:00 01/25/23 08:00 11/14/23 07:00 183/92 H 01/25/23 07:00 100.0 F H 76 28 H 94 01/25/23 05:44 99.5 F 89 22 155/78 H 93 01/25/23 04:00 100.2 F H 85 19 165/97 H 95 01/25/23 04:00 01/25/23 03:15 78 19 97 01/25/23 03:00 100.2 F H 79 18 183/86 H 94 01/25/23 02:07 100.4 F H 77 19 168/67 H 94 01/25/23 02:00 100.2 F H 78 21 178/83 H 92 01/25/23 01:19 97.3 F L 77 18 193/83 H 100 01/25/23 00:00 01/25/23 00:00 76 O2 Del Method FiO2 01/25/23 11:28 35 01/25/23 10:00 35 01/25/23 10:00 01/25/23 09:00 01/25/23 09:00 01/25/23 08:17 30 01/25/23 08:00 30 01/25/23 08:00 01/25/23 08:00 30 01/25/23 08:00 Mechanical Vent 30 01/25/23 07:00 01/25/23 07:00 01/25/23 05:44 Mechanical Vent 30 01/25/23 04:00 Mechanical Vent 01/25/23 04:00 30 01/25/23 03:15 30 01/25/23 03:00 Mechanical Vent 01/25/23 02:07 Mechanical Vent 01/25/23 02:00 Mechanical Vent 01/25/23 01:19 Mechanical Vent 01/25/23 00:00 30 01/25/23 00:00 PG Care Time/CCT Total # of Minutes Spent Total Time Spent with Patient: Total time spent is greater than 50% in coordination of care (as documented) at patient's floor/unit and/or counseling patient: Coding Level of Care Code 59023 SUB INP/OBS CARE 2/35MIN Diagnoses Acute respiratory failure with hypoxia J96.01 Acute encephalopathy G93.40 Gram-positive bacteremia R78.81 Acute UTI N39.0 Atrial fibrillation I48.91 CAROLINA (acute kidney injury) N17.9 GERD (gastroesophageal reflux disease) K21.9 Type 2 diabetes mellitus with other circulatory complication, without long-term current use of insulin E11.59 Diabetes mellitus oysterman insulin use: without oysterman use Diabetes mellitus complication status: with circulatory complication Diabetes mellitus complication detail: with other circulatory complications Coronary artery disease involving saxman coronary artery of saxman heart without angina pectoris I25.10 Coronary Disease-Associated Artery/Lesion type: saxman artery [place] vs. transplanted heart: saxman heart Associated angina: without angina Malnutrition E46 Time Spent (min) 35 (8) Diabetes mellitus, type 2 Diabetes mellitus oysterman insulin use: without oysterman use Diabetes mellitus complication status: with circulatory complication Diabetes mellitus complication detail: with other circulatory complications Qualified Code(s): E11.59 - Type 2 diabetes mellitus with other circulatory complications (9) CAD (coronary artery disease) Coronary Disease-Associated Artery/Lesion type: saxman artery [place] vs. transplanted heart: saxman heart Associated angina: without angina Qualified Code(s): I25.10 - Atherosclerotic heart disease of saxman coronary artery without angina pectoris
[2023-01-25] MEDS ORDERED: VANCOMYCIN HCL 500 MG in NSS 100mL IV SCH (12:00)
[2023-01-25] MEDS: METOPROLOL TARTRATE 50 MG TAB PO SCH ×2 (12:02→20:32)
--- NOTE | 2023-01-25 12:53 | Palliative Care Consultation ---
Date of Consultation January 25, 2023 Assessment & Plan (1) Acute alteration in mental status: Yaron is not decisional, [facility]ICU + delirium His son and dtr are SDMs. There have been several discussions with primary team/CCM team and family re goals, code status and overall aims at this junction. (2) Generalized weakness: (3) Palliative care by specialist: Spoke with dtr bby phone, provided overview of Palliative Medicine, a subspecialty that provides specialized medical care for people living with a serious illness by offering a focus on quality of life. Palliative Medicine is often conflated with hospice: I advised patient/family that Palliative and hospice can be partners but we are not the same. It is important to understand the difference so that we may be informed, and not afraid. Palliative Medicine works to improve QOL through reduction of symptom burden/more control over their illness, for both the patient and family. Palliative medicine clinicians are board certified, specially-trained and another member of the patient's medical care team. We often provide an extra layer of support because our care is based on the needs of the patient, not the prognosis; as such, it's appropriate at any age/advancing stage of a serious illness and can be provided along with curative treatment. Palliative Medicine clinicians are also trained in advanced communication methodologies, to facilitate complex discussions about advanced illness planning, which are needed to help assure that the treatment choices match the patient's goals, aka delivering Goal Concordant care. Finally, we discussed that hospice is a visiting nurse service that focuses on care delivered at the very end of life for patients with terminal illness, with life expectancy less than 6 month. (4) Discussion about advance care planning held with family member: Dtr Lucy states they have had an unexpected in their orthodoxy community with planned luncheon this week which she is running. Between her and brother's work schedule and this change, there is some limited time. She would like to meet but has limited bandwidth to drive to [facility]. I offered a [facility] Zoom meeting which was more accommodating for her needs this week and we have tentatively agreed to 01/27 at 11am. She will confirm with brother and let me know. Plan * pt is not decisional * daughter and son are SDMs. Tentative Zoom family meeting 01/27 per daughter's request given limited availability/they also have a in their orthodoxy family, not yet confirmed by daughter * I have updated CCM, primary team and nursing. Thank you for allowing us to participate in the ongoing care of this patient. Please don't hesitate to call or page with any additional concerns. Dr. Susan Zheng DNP Director, Palliative Care History of Present Illness Reason for Consultation: "goals of care" Requesting Physician: Serena Attending Physician: Deanne Silva MD History of Present Illness Admitted 01/22/23, per ED notes: "Yaron Edwards is a 72-year-old male recently discharged 1 day ago after an admission for cardiopulmonary arrest following administration of IV contrast, gram-positive bacteremia with staph epi plus Enterococcus faecalis, ambulatory dysfunction, recent thoracic aneurysm repair, A-fib with history of RVR on apixaban who was discharged to rehab but who presents with AHRF Yaron was discharged to [facility] and was reportedly doing well yesterday, but when was evaluated by staff today was found to be hypoxic to the 70s and much less responsive than normal. His son reports that Yaron had also been confused over the last 24 hours. Had some coughing, but to their knowledge had not had any fevers or chills. Had been taking daptomycin as directed.. Limited history is obtained as patient is lethargic and arouses transiently but does not follow commands or answer questions. Did discuss with the patient's son Yaron's goals of care. They report that he was doing well 48 hours ago and his goal would be to return to a similar level of function. They would like him to remain full code at this time, however if ROSC was not achieved within 3 to 5 minutes they would not want prolonged efforts taken. His son and daughter will continue to discuss goals of care and whether/when DNR/DNI would be within his wishes." Yaron was recently admitted recently admitted 01/10 - 01/21/23 for generalized weakness: hypertension, diabetes mellitus, CAD, prostate cancer. Per chart review, "He had been diagnosed with a aortic tear at a local hospital, and was then sent to [facility] where he had surgical repair. Associated with a tear he ended up having need for hemodialysis due to kidney injury. He had become severely debilitated during this hospital stay, and family felt and [facility] thought they were sending him to a rehab facility, but [facility] He was there for 2 days, and the family realized that he needed to have more significant care to get improved, and he has been presented to the ED at [facility] for referral to a rehab facility." He is s/p endovascular graft for aortic aneurysm at [facility], which was complicated with persistent gram-positive bacteremia, cardiopulmonary arrest, and he was reportedly sent to an apartment complex for post dc care rather than rehab, per family report. Current issues: Gram-positive cocci bacteremia Cardiopulmonary arrest Acute kidney injury Metabolic encephalopathy Gram-positive cocci bacteremia Atrial fibrillation with rapid ventricular response Imaging this admission: -MRI brain w/o con: no acute abnormalities or acute ischemia -EEG completed: moderate diffuse slowing of the background, no focal abnormalities or potentially epileptogenic discharges. -Thoracic aortic endovascular stent graft is in place with mild aneurysmal dilation of the ascending thoracic aorta which was considered stable to slightly increased since his prior CT measuring 5.1 cm Allergies Allergy/AdvReac Type Severity Reaction Status Date / Time Iodinated Contrast Media Allergy Severe Anaphylaxis Verified 01/22/23 14:52 morphine Allergy Intermediate hives Verified 01/22/23 14:52 Penicillins Allergy Intermediate skin Verified 01/22/23 14:52 streaking tetanus toxoid, adsorbed Allergy Intermediate local skin Verified 01/22/23 14:52 irritation meperidine AdvReac Intermediate hallucinations, Verified 01/22/23 14:52 agitation Home Medications Medication Instructions Recorded Confirmed Type aspirin 81 mg tablet,delayed 81 mg PO QAM 01/18/19 01/22/23 History release (Nora Low Dose Aspirin) amlodipine 5 mg tablet 5 mg PO QAM 03/29/22 01/22/23 History metoprolol tartrate 100 mg tablet 100 mg PO BID 03/29/22 01/22/23 History albuterol sulfate 90 mcg/actuation 2 puff inhalation Q6H PRN Wheezing 01/10/23 01/22/23 History aerosol inhaler clopidogrel 75 mg tablet (Plavix) 75 mg PO QAM 01/10/23 01/22/23 History fluticasone furoate 100 1 inh inhalation QAM 01/10/23 01/22/23 History mcg-vilanterol 25 mcg/dose inhalation powder (Breo Ellipta) oxycodone 5 mg tablet 5 mg PO Q4H PRN Pain 01/10/23 01/22/23 History apixaban 5 mg tablet (Eliquis) 5 mg PO BID #50 tabs 01/21/23 01/22/23 Rx daptomycin 350 mg/50 mL in 0.9 % 850 mg IV Q48H 01/22/23 01/22/23 History sodium chloride intravenous piggyback insulin regular human 100 unit/mL 1 sliding scale dose subcut ACHS 01/22/23 01/22/23 History injection solution (Humulin R PRN BLOOD SUGAR CONTROL Regular U-100 Insulin) naloxone 4 mg/actuation nasal 4 mg intranasal DIRECTED PRN 01/22/23 01/22/23 History spray (Narcan) Opioid Overdose Patient History Medical History Acute renal disease Endotracheally intubated Complicated UTI (urinary tract infection) Uremia Acute encephalopathy Benign prostatic hyperplasia with urinary obstruction Elevated PSA Malignant neoplasm of kidney excluding renal pelvis Urethral stricture History of abdominal aortic aneurysm (AAA) s/p repair + stent (2008) CAD (coronary artery disease) stents x 2 (2000) History of kidney cancer left kidney (2014) s/p tumor removal (s/p partial left nephrectomy) BPH (benign prostatic hyperplasia) GERD (gastroesophageal reflux disease) controlled Diabetes mellitus, type 2 diet controlled History of skin cancer face Hx of myocardial infarction 2000 - stents x 2 Hypertension Hyperlipidemia Renal mass, left Surgical History Status post insertion of iliac artery stent (from trauma from endovascular procedure per records) Hx of colonoscopy History of AAA (abdominal aortic aneurysm) repair + stent (2008) Hx of hernia repair Hx of abdominal surgery d/t peritonitis History of appendectomy History of kidney surgery Left partial robotic nephrectomy, hand assisted laparoscopy: 09/24/14: Grade I view, MAC#4, ETT 8 at [facility] Family History Brother Family history of diabetes mellitus Social History Smoking Status: Former smoker Tobacco Type: Cigarettes Second Hand Exposure: No; Do You Dip or Chew Tobacco: No; Hx Alcohol Use: No Hx Substance Use: No Preferred Language: Upper Sorbian Communication Ability: Unable Railroad Inspector Required: No Beliefs That Will Affect Care: None Current Living Situation: Rehab Current Living Situation Comment: From [facility] Feels Safe at Home: Yes Assistive Devices: Cane Review of Systems Review of Systems: All systems reviewed & are unremarkable except as noted in Subjective and Unobtainable due to cognitive status Physical Exam Physical Exam: Frail appearing thin, chronically ill confused unable to follow commands ETT to vent S1S2 scaphoid abdomen generalized weakness Skin pale, cool with scattered ecchymoses Results & Data Vital Signs (Past 12 Hours) Vital Signs Temp Pulse Pulse Resp BP BP Pulse Ox 01/25/23 11:51 01/25/23 11:32 37.7 C H 84 24 94 01/25/23 11:32 137/78 01/25/23 11:28 23 01/25/23 11:00 37.5 C 97 H 14 100 01/25/23 11:00 194/124 H 01/25/23 10:00 37.6 C H 90 24 93 01/25/23 10:00 170/79 H 01/25/23 09:00 157/80 H 01/25/23 09:00 37.8 C H 102 H 25 H 90 01/25/23 08:17 90 24 94 01/25/23 08:00 38.0 C H 88 24 95 01/25/23 08:00 187/101 H 01/25/23 08:00 01/25/23 08:00 01/25/23 07:00 183/92 H 01/25/23 07:00 37.8 C H 76 28 H 94 01/25/23 05:44 37.5 C 89 22 155/78 H 93 01/25/23 04:00 37.9 C H 85 19 165/97 H 95 01/25/23 04:00 01/25/23 03:15 78 19 97 01/25/23 03:00 37.9 C H 79 18 183/86 H 94 01/25/23 02:07 38.0 C H 77 19 168/67 H 94 01/25/23 02:00 37.9 C H 78 21 178/83 H 92 01/25/23 01:19 36.3 C L 77 18 193/83 H 100 O2 Del Method FiO2 01/25/23 11:51 35 01/25/23 11:32 01/25/23 11:32 01/25/23 11:28 35 01/25/23 11:00 01/25/23 11:00 01/25/23 10:00 35 01/25/23 10:00 01/25/23 09:00 01/25/23 09:00 01/25/23 08:17 30 01/25/23 08:00 30 01/25/23 08:00 01/25/23 08:00 30 01/25/23 08:00 Mechanical Vent 30 01/25/23 07:00 01/25/23 07:00 01/25/23 05:44 Mechanical Vent 30 01/25/23 04:00 Mechanical Vent 01/25/23 04:00 30 01/25/23 03:15 30 01/25/23 03:00 Mechanical Vent 01/25/23 02:07 Mechanical Vent 01/25/23 02:00 Mechanical Vent 01/25/23 01:19 Mechanical Vent Laboratory Results data reviewed Diagnostic Findings data reviewed PG Care Time/CCT Total # of Minutes Spent Total Time Spent: 90 Total Time Spent with Patient: Total time spent is greater than 50% in coordination of care (as documented) at patient's floor/unit and/or counseling patient: I spent 90 minutes overall addressing this case: 25 min in medical data review/discussion with referring provider(s) and/or preparation for the visit 25 min in direct interaction with the patient/exam 10 min in Advance Care Planning/Goals of Care discussions as detailed above in note (must be >16min) 15 min in subsequent review and synthesis of assessment and plan 15 min communicating with other providers regarding the patient's case: [place] [address] IN/OBS CONSULT LVL 5,80M Patient Type New History Comprehensive Exam Comprehensive Medical Decision Making High Complexity Diagnoses Acute alteration in mental status R41.82 Generalized weakness R53.1 Palliative care by specialist Z51.5 Discussion about advance care planning held with family member Z71.0
--- NOTE | 2023-01-25 16:51 | Infectious Disease Progress Nt ---
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 He underwent thoracic endovascular aortic repair (TEVAR) on 12/23/22 with [place] endograft. He required renal stenting, kidney function worsened and was started on HD via RIJ permacath. More recently he was admitted to [facility] on 01/10 for placement. His course c/b cardiac arrest on 01/12 after contrast and scans requiring intubation 01/12 blood cultures grew CoNS in 2/4 bottles. Repeat blood cultures later that day post-cardiac arrest again grew CoNS in 4/4 bottles. BCID PCR panel with Staph epi, mec A detected. Blood cultures from 01/13 again grew CoNS in 2/4 bottles, as well as Staph haemolyticus in 1/4 bottles, and E faecalis in 2/4 bottles.. Pt's HD catheter was removed 01/18. Blood cultures cleared on 01/15. Catheter tip culture finalized as NG. PICC inserted on 01/20. On 01/19, he wa febrile with increased work of breathing. CT chest on 01/19 with cardiomegaly with mild intralobular septal thickening which may represent a component of pulm edema, emphysema with bronchitis, trace L pleural effusion, endograft with unchanged fusiform aneurysmal dilation of aorta. He was dced 01/21 to [facility]. He returns with hypoxic resp failure on . During that admission he was followed by ID with plan to complete 6 wks of Daptomycin for CONS and enterococcus bacteremia and presumed endovascular infection. In Ed, he required NRB with sats in 70s and tachypnea. He is currently intubated in ICU and unable to provide a history. He has no leukocytosis. Cr .3.88, procal 1.75 Ct chest without consolidation to suggest pneumonia. Moderate secretions within the trachea and mainstem bronchi and emphysema noted. Thoracic aortic endovascular stent graft in place. Aneurysmal dilatation of the descending thoracic aorta is stable. CTAB showed no significant change in appearance of the abdomen and pelvis. CT head without acute changes. He is currently on IV vancomycin and Zosyn. UC growing >100 K Klebsiella Oxy and sputum cx growing GNR. ID consulted for recent CONS bacteremia. # Acute hypoxic respiratory failure # Serratia marcescens on sputum cx # Klebsiella oxytoca in UC # Recent Staph epi bacteremia # Recent E faecalis bacteremia # Recent thoracic aortic aneurysm repair with graft # R HD catheter: removed 01/18 # right great toe screw in place Current Micro UC 01/22 > 100k Klebsiella oxytoca - R to cefazolin BC 01/22 NGTD Sputum cx 01/23 Serratia marcescens- PANSEnsitive Prior Micro: 01/18 HD catheter tip cx: NG 01/17 BCx x2: NGTD 01/15 BCx x2: NG 01/13 BCx x2: Coag neg Staph not lug in 2/4 bottles (R oxacillin, clinda, TMP/SMX. S dapto, tetra, vanc), Staph haemolyticus in 1/4 bottles (R oxacillin, TMP/SMX, clinda. S dapto, tetra, vanc), E faecalis in 2/4 bottles (S amp, vanc). BCID PCR panel + Staph epi, E faecalis 01/12 BCx x2: Coag neg Staph not lugdunensis in 4/4 bottles. BCID PCR panel + Staph epi 01/12 BCx x2: Coag neg Staph not lugdunensis in 2/4 bottles (R oxacillin. S clinda, tetra, TMP/SMX) 01/11 UCx: >3 organisms Abx: Daptomycin 01/12-01/22 Zosyn 01/22-ongoing vanco 01/22-ongoing Coag neg Staph in multiple blood cultures is not a contaminant, lisa in conjunction with presenting symptoms, recent endovascular procedure with graft, and central lines. Several possible sources of infection; 1) endovascular graft, 2) central lines-HD catheter, femoral line, 3) History of R great toe metal/screw (no evidence of infection here), 4) R AC fossa tenderness and rednes s/PIV infiltration (less likely, RUE US showed R basilic vein thrombosis, no evidence of soft tissue abscess), 5) acute sinusitis on imaging (less likely). Interestingly, pt also with E faecalis on 01/13 blood culture. TTE on 01/15 did not demonstrate vegetations. He was on daptomycin 10 mg/kg for Enterococcus with DAYNA 2 and Cons with plan to treat for 6 wks for endovascular infection, given multiple blood cultures with Staph epi from 01/12-01/13, and E faecalis in 2/4 bottles on 01/13, and he is high risk for graft infection with recent endograft placement. Daptomycin was held this admission and Vancomycin started pending Rule out of a grm positive pulmonary infection. Respiratory cx positive for only S marcescens Recommendations: Discontinued Vancomycin and restarted IV Dapto 10 mg/kg IV Q 48 hours ( cr 2.74, crcl 25.5) as no evidence of GPC in lung. Plan for 6 weeks as previously recommended Discontinued Cefepime and started ceftriaxone 2g iv daily for Klebsiella in urine and Serratia in sputum cx. ID will continue to follow. Hazel Carreon MD, MPH Infectious Disease [facility], ID Division Call [phone] with questions. Admission and Anticipated Discharge Date Admission Date: January 22, 2023 Subjective This patient recommendation is based on a telemedicine consult request which was completed asynchronously through chart review and information provided by the primary physician. The patient was not seen or examined today. The evaluation is consultative in nature and all patient care and treatment decisions can either be accepted or rejected by the patient's primary hospital-based treating physician using their own independent medical judgment for their patient. Time Spent Reviewing Chart: 21 - 30 minutes Febrile. Tm 38.5 Resp cx + pansensitive Serratia Marcescens Results & Data Vital Signs (Past 12 Hours) Vital Signs Temp Pulse Pulse Resp BP BP Pulse Ox 01/25/23 16:00 38.5 C H 87 24 93 01/25/23 16:00 133/66 01/25/23 16:00 01/25/23 16:00 86 01/25/23 15:35 92 H 20 98 01/25/23 15:01 158/75 H 01/25/23 15:01 38.3 C H 87 33 H 93 01/25/23 15:00 38.3 C H 90 24 94 01/25/23 14:00 118/68 01/25/23 14:00 38.1 C H 78 14 100 01/25/23 13:00 37.8 C H 78 20 93 01/25/23 13:00 145/78 H 01/25/23 12:00 37.7 C H 89 18 100 01/25/23 12:00 121/70 01/25/23 11:51 01/25/23 11:32 37.7 C H 84 24 94 01/25/23 11:32 137/78 01/25/23 11:28 23 01/25/23 11:00 37.5 C 97 H 14 100 01/25/23 11:00 194/124 H 01/25/23 10:00 37.6 C H 90 24 93 01/25/23 10:00 170/79 H 01/25/23 09:00 157/80 H 01/25/23 09:00 37.8 C H 102 H 25 H 90 01/25/23 08:17 90 24 94 01/25/23 08:00 38.0 C H 88 24 95 01/25/23 08:00 187/101 H 01/25/23 08:00 01/25/23 08:00 01/25/23 07:00 183/92 H 01/25/23 07:00 37.8 C H 76 28 H 94 01/25/23 05:44 37.5 C 89 22 155/78 H 93 O2 Del Method FiO2 01/25/23 16:00 01/25/23 16:00 01/25/23 16:00 35 01/25/23 16:00 01/25/23 15:35 35 01/25/23 15:01 01/25/23 15:01 01/25/23 15:00 01/25/23 14:00 01/25/23 14:00 01/25/23 13:00 01/25/23 13:00 01/25/23 12:00 01/25/23 12:00 01/25/23 11:51 35 01/25/23 11:32 01/25/23 11:32 01/25/23 11:28 35 01/25/23 11:00 01/25/23 11:00 01/25/23 10:00 35 01/25/23 10:00 01/25/23 09:00 01/25/23 09:00 01/25/23 08:17 30 01/25/23 08:00 30 01/25/23 08:00 01/25/23 08:00 30 01/25/23 08:00 Mechanical Vent 30 01/25/23 07:00 01/25/23 07:00 01/25/23 05:44 Mechanical Vent 30 Laboratory Results Short CBC 01/25/23 Range/Units 05:28 WBC 7.02 (4.8-10.8) K/ul Hgb 7.5 L (14.0-18.0) g/dl Hct 23.9 L (42.0-52.0) % Plt Count 263 (130-400) K/uL BMP 01/25/23 05:28 Sodium 141 Potassium 3.7 Chloride 109 H Carbon Dioxide 23 BUN 55 H Creatinine 2.74 H Glucose 117 H Calcium 8.0 L Liver Function 01/25/23 Range/Units 05:28 Total Bilirubin 0.8 (0.2-1.0) mg/dl AST 45 H (13-39) U/L ALT 45 (7-52) U/L Alkaline Phosphatase 152 H (34-104) U/L Albumin 2.2 L (3.4-5.0) gm/dl Diagnostic Findings Microbiology 01/23/23 Unknown Sputum,Vent Suction Gram Stain - Final 01/23/23 Unknown Sputum,Vent Suction Sputum Culture - Final Serratia marcescens 01/22/23 14:11 Blood Aerobic Blood Culture - Preliminary No growth in Aerobic bottle after 48 hours. 01/22/23 14:11 Blood Anaerobic Blood Culture - Preliminary No growth in Anaerobic bottle after 48 hours. 01/22/23 13:20 Blood Aerobic Blood Culture - Preliminary No growth in Aerobic bottle after 48 hours. 01/22/23 13:20 Blood Anaerobic Blood Culture - Preliminary No growth in Anaerobic bottle after 48 hours. 01/22/23 15:15 Urine,Straight Cath Urine Culture - Final Klebsiella oxytoca Abdomen/Pelvis CT 01/22/23 18:23 CT OF THE ABDOMEN AND PELVIS WITHOUT CONTRAST CLINICAL HISTORY: eval vascular stent and bleeding COMPARISON STUDY: CTA of the abdomen and pelvis January 12, 2023. TECHNIQUE: Axial images of the abdomen and pelvis were obtained without IV contrast. Images were reviewed in the axial, sagittal, and coronal planes. Automated exposure control was utilized for the study. A dose lowering technique was utilized adhering to the principles of ALARA. FINDINGS: The thoracic aortic aneurysm and thoracic aortic stent graft are better depicted on the chest CT, reported earlier today. Abdominal aortic stent graft is in place. Aneurysmal dilatation of the aorta at the level of the diaphragmatic hiatus, measuring 4.7 cm, is unchanged since CT of January 12, 2023. Aneurysmal dilatation of the right common iliac artery measuring 2.9 cm is unchanged. Mild aneurysmal dilatation of the left common femoral artery is unchanged. A 2.2 cm outpouching arising from the anterior aspect of the right common femoral artery with adjacent stranding is similar to prior CT. The vessels and stent grafts are suboptimally assessed on this unenhanced exam however there is no evidence for rupture. Bilateral renal calculi measure up to 8 mm. There are no ureteral calculi and there is no hydronephrosis. A Acosta balloon and gas within the bladder are present. The bladder is collapsed. Low- attenuation bilateral renal lesions are suboptimally assessed on this exam but favor cysts. There is no evidence for a bowel obstruction. Extensive colonic diverticulosis is present without evidence for acute diverticulitis. There has been no significant change in appearance of the abdomen or pelvis since CT of January 12, 2023. IMPRESSION: 1. No significant change in appearance of the abdomen and pelvis since CT of January 12, 2023. 2. Suboptimal evaluation of thoracic and abdominal aortic stent grafts on this unenhanced exam. No evidence for rupture. No significant change in size of the aneurysms of the abdominal aorta, right common iliac artery and left common femoral artery. 3. 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 4. Colonic diverticulosis. No evidence for acute diverticulitis. 5. Bilateral nephrolithiasis. No ureteral calculi or hydronephrosis. ACT 112: Negative or not required by law. Electronically signed by: Peterson Hart M.D. 01/22/2023 8:19 PM Chest X-Ray 01/22/23 21:33 XR chest 1V portable HISTORY: Endotracheal tube placement. COMPARISON: Chest 01/22/2023. FINDINGS: The endotracheal tube terminates 3.5 cm and the gerson. Nasogastric tube terminates in the stomach. A right PICC terminates in the SVC. An aortic stent graft is again noted. No pneumothorax. No pleural effusions. No focal lung consolidations to suggest a pneumonia. No evidence for pulmonary edema. Emphysema again noted. IMPRESSION: Satisfactory support line placement as described above. Otherwise, no acute process within the chest. ACT 112: Negative or not required by law. Electronically signed by: Alvarado Bo M.D. 01/22/2023 10:55 PM Chest X-Ray 01/23/23 16:45 XR chest 1V portable HISTORY: picc line placement to right arm. COMPARISON: Chest 01/22/2023. FINDINGS: The right PICC terminates at the distal SVC/superior cavoatrial junction. The endotracheal tube terminates 3.2 cm from the gerson. A nasogastric tube terminates 11 diaphragm. The tip is not included on this study. An aortic stent graft is again noted. No pneumothorax. Bibasilar interstitial thickening persists. IMPRESSION: Satisfactory support line placement as above. ACT 112: Negative or not required by law. Electronically signed by: Alvarado Bo M.D. 01/23/2023 5:23 PM Brain MRI 01/25/23 00:05 Exam(s): MRI HEAD Without Contrast EXAM: MR Head Without Intravenous Contrast CLINICAL HISTORY: Reason for exam: altered mental status, rule out stroke. TECHNIQUE: Magnetic resonance images of the head/brain without intravenous contrast in multiple planes. COMPARISON: Comparison made to prior head CT from January 22, 2023. FINDINGS: Brain: Moderate nonspecific white matter changes. The flow voids at the base of the brain are intact. No mass. No hemorrhage. No acute infarct. Ventricles: Evidence of ventriculomegaly. Bones/joints: Unremarkable. Sinuses: Chronic right maxillary, sphenoid and ethmoid sinusitis. No acute sinusitis. Mastoid air cells: There is a tiny amount of fluid in the right mastoid air cells. No mastoid effusion. Orbits: Unremarkable as visualized. IMPRESSION: No evidence of acute intracranial pathology. Electronically signed by: Lcuy Lion MD 01/25/23 02:21 AM Medications Administered Home Medications Medication Instructions Recorded Confirmed Last Taken aspirin 81 mg tablet,delayed 81 mg PO QAM 01/18/19 01/22/23 01/22/23 release (Nora Low Dose Aspirin) amlodipine 5 mg tablet 5 mg PO QAM 03/29/22 01/22/23 01/22/23 metoprolol tartrate 100 mg tablet 100 mg PO BID 03/29/22 01/22/23 01/22/23 09:00 albuterol sulfate 90 mcg/actuation 2 puff inhalation Q6H PRN Wheezing 01/10/23 01/22/23 Unknown aerosol inhaler clopidogrel 75 mg tablet (Plavix) 75 mg PO QAM 01/10/23 01/22/23 01/22/23 fluticasone furoate 100 1 inh inhalation QAM 01/10/23 01/22/23 01/22/23 mcg-vilanterol 25 mcg/dose inhalation powder (Breo Ellipta) oxycodone 5 mg tablet 5 mg PO Q4H PRN Pain 01/10/23 01/22/23 Unknown apixaban 5 mg tablet (Eliquis) 5 mg PO BID #50 tabs 01/21/23 01/22/23 01/22/23 09:00 daptomycin 350 mg/50 mL in 0.9 % 850 mg IV Q48H 01/22/23 01/22/23 Unknown sodium chloride intravenous piggyback insulin regular human 100 unit/mL 1 sliding scale dose subcut ACHS 01/22/23 01/22/23 Unknown injection solution (Humulin R PRN BLOOD SUGAR CONTROL Regular U-100 Insulin) naloxone 4 mg/actuation nasal 4 mg intranasal DIRECTED PRN 01/22/23 01/22/23 Unknown spray (Narcan) Opioid Overdose Active Medications Generic Name Dose Route Start Last Admin Trade Name Freq PRN Reason Stop Dose Admin Acetaminophen 650 mg 01/22/23 18:14 01/25/23 07:32 Acetaminophen 325 Mg Tab PO 02/21/23 18:13 650 mg Q4H PRN Administration Pain or Fever Aspirin 81 mg 01/24/23 09:00 01/25/23 07:22 Aspirin 81 Mg Chew PO 02/23/23 08:59 81 mg DAILY GABY Administration Clopidogrel Bisulfate 75 mg 01/24/23 09:00 01/25/23 07:22 Clopidogrel Bisulfate 75 Mg Tab PO 02/23/23 08:59 75 mg QAM GABY Administration Enteral Nutritional Formula 1,000 ml 01/23/23 12:30 01/25/23 11:41 Novasource Renal 2.0 Judah 1000ml Bag OG 02/22/23 12:29 1,000 ml UD GABY Administration Protocol Fentanyl Citrate 50 mcg 01/25/23 11:28 01/25/23 11:41 Fentanyl Citrate Pf 100 Mcg/2 Ml Vial IV 02/08/23 11:27 50 mcg Q2H PRN Administration Moderate Pain (4,5,6) on NRS Fluticasone/Vilanterol 1 puffs 01/23/23 09:00 01/25/23 07:20 Fluticasone/Vilanterol 100/25mcg 14 Puffs/Inhaler INH 02/22/23 08:59 Not Given QAM GABY Propofol 1,000 mg in 100 mls @ 0 mls/hr 01/22/23 21:45 01/25/23 07:49 Diprivan IV 01/25/23 21:44 Infused .Q0M GABY Titration Protocol 0 MCG/KG/MIN Norepinephrine Bitartrate 4 mg in 250 mls @ 0 mls/hr 01/22/23 22:00 01/25/23 09:51 Levophed/D5w IV 02/21/23 21:59 Infused .Q0M GABY Titration Protocol 0 MCG/KG/MIN Heparin Sodium/Dextrose 25,000 units in 500 mls @ 21 mls/hr 01/23/23 09:45 01/25/23 06:34 Heparin Sodium/Dextrose IV 02/22/23 09:44 1,050 units/hr .[id number] GABY 21 mls/hr Administration Protocol 1,050 UNITS/HR Cefepime HCl 1,000 mg/ Syringe 10 mls @ 5 mls/min 01/25/23 02:00 01/25/23 13:21 IV 02/01/23 01:59 5 mls/min Q12H GABY Administration Protocol Insulin Aspart 0 units 01/24/23 18:00 01/25/23 11:41 Insulin Aspart Per Unit Charge SC 02/23/23 17:59 2 units Q6 GABY Administration Metoprolol Tartrate 50 mg 01/25/23 11:30 01/25/23 12:02 Metoprolol Tartrate 50 Mg Tab PO 02/24/23 11:29 50 mg BID GABY Administration Sennosides 17.2 mg 01/25/23 09:00 01/25/23 11:03 Senna 8.6 Mg Tab PO 02/24/23 08:59 17.2 mg QAM GABY Administration
[2023-01-25] MEDS ORDERED: DAPTOmycin 750 MG in SYRINGE 0 ML IV SCH (18:00)
[2023-01-25] MEDS: cefTRIAXone SODIUM 2,000 MG in DEXTROSE 5 % MINI-B 50 ML IV SCH (18:08)
[2023-01-25] MEDS: ACETAMINOPHEN SUSP 325 MG/10.15 ML UDC PO PRN ×2 (18:08→23:58)
--- OUTSIDE RECORDS SUMMARY | 2023-01-25 21:00 | External Medical Summary | Summary of Care ---
Author Name Unknown Organization [facility] Address [address] [place] [address] Phone [phone] Care Team Providers Care Antisubmarine Weapons Officer Name Role Phone Gabriel Thomson MD Primary Care Provider + Reason for Visit * Reason Onset Date Comments Information 12/20/2022 Encounter Details Date Type Department Care Team Description 12/20/2022 Telephone Vascular Surg [facility] [address], [place] [id number] Juan Craven CRNP [address] [place] [address] Information Allergies Active Allergy Reactions Severity Noted Date Comments Meperidine Hcl Other (Please comment) 07/18/1987 Iodinated Contrast Media Itching Medium 11/13/2020 Pt experienced itchiness with red spots on his chest and abdomen post IV contrast. Improved after 15 minutes but was administered benadryl. Morphine 08/27/2010 Pt states hives. Penicillins Rash 11/06/2008 Tetanus Antitoxin Hives 07/24/1987 Tetanus Toxoid, Adsorbed 10/02/2013 documented as of this encounter (statuses as of 12/20/2022) Medications Medication Sig Dispensed Refills Start Date End Date Status HYDROCHLOROTHIAZIDE 25 MG PO TABS Take 25 mg by mouth daily. 0 Active LISINOPRIL 20 MG PO TABS Take 30 mg by mouth daily. 0 Active LOW-DOSE ASPIRIN 81 MG PO TABS Take 81 mg by mouth daily. 0 Active METOPROLOL TARTRATE 100 MG PO TABS Take 100 mg by mouth 2 times a day. 0 Active pantoprazole (PROTONIX) 40 MG TBEC Take 40 mg by mouth daily. 0 Active simvastatin (ZOCOR) 40 MG Tablet Take 40 mg by mouth daily. 30 Tab 0 06/21/2018 Active amLODIPine (NORVASC) 5 MG Tablet Take 5 mg by mouth daily. 0 08/17/2019 Active Tippo-3 Fatty Acids (OMEGA 3 500) 500 MG CAPS Take 500 mg by mouth daily. 0 Active Apixaban 5 MG Oral Tablet (Eliquis) Take 5 mg by mouth 2 times a day. 0 Active Albuterol Sulfate HFA 108 (90 Base) MCG/ACT Inhalation Aerosol Solution Inhale by mouth 2 Puffs . 0 Active Cholecalciferol 25 MCG (1000 UT) Oral Tablet Take by mouth 2 Tablets in the morning. 0 06/23/2021 Active Cyanocobalamin 500 MCG Oral Tablet Take by mouth 500 mcg . 0 Active EQL One Daily Mens Health Oral Tablet Take by mouth 1 Tablet daily . 0 Active PreserVision AREDS Oral Capsule Take by mouth 2 Tablets in the morning. 0 Active documented as of this encounter (statuses as of 12/20/2022) Active Problems Problem Noted Date Aneurysm of descending thoracic aorta wi thout rupture 12/17/2021 Infrarenal abdominal aortic aneurysm (AA A) without rupture 12/17/2021 HTN, goal below 140/80 11/24/2012 Dyslipidemia, goal to be determined 11/12 History of tobacco use 11/24/2012 HTN, goal below 140/90 01/06/2009 Thoracoabdominal aortic aneurysm (TAAA) without rupture 11/19/2008 documented as of this encounter (statuses as of 12/20/2022) Social History Tobacco Use Types Packs/Day Years Used Date Smoking Tobacco: Former Cigarettes 1 40 Q uit: 03/14/2008 Smokeless Tobacco: Never Alcohol Use Standard Drinks/Week Comments No 0 (1 standard drink = 0.6 oz pur e alcohol) Sex Assigned at Date Recorded Not on file Job Start Date Occupation Industry Not on file Not on file Not on file documented as of this encounter Miscellaneous Notes * Telephone Encounter - DEMOND Spear - 12/20/2022 6:36 AM EDT ----- Message from Rylan Garcia MD sent at 12/20/2022 6:26 AM EDT ----- Regarding: RE: Dissection OK thanks ----- Message ----- From: Mulugeta Trejo MD Sent: 12/18/2022 7:54 AM EDT To: Rylan Garcia MD, # Subject: Dissection Not sure if you remember this amador, but he was an infrarenal [facility]AR over a decade ago. [facility] with renal and celiac thrombus and thrombus sitting in theEVAR (report read to me by ER doc while I was scrubbed, never saw images) - he was to get sent here(by ground, no air available due to rain) but looks like he got sent to [facility]. Just wanted to let you know for in case you know who he is and/or he survives and you end up seeing him again. documented in this encounter Plan of Treatment Upcoming Encounters Date Type Specialty Care Team Description 01/24/2023 Appointment Radiology 02/10/2023 Office Visit Vascular Surgery Rylan Garcia MD [address] [place] [address] Health Maintenance Due Date Last Done Comments Lipid Panel 1949 COVID-19 Vaccine (#1) [birth year]19[birth year]1950 Depression Screening 1961 Albumin/Creatinine Ratio 08/21/1967 Hepatitis C Screening 08/21/1967 Cologuard 1994 Colonoscopy 1994 Colorectal Cancer Screening 1994 Fecal Occult Blood Test 1994 Sigmoidoscopy 1994 LUNG CANCER SCREENING - USE SMARTSET 16218 08/21/1999 Zoster Vaccines (1 of 2) 08/21/1999 Pneumococcal Vaccine: 65+ Years (1 - PCV) 2014 GFR 08/11/2022 08/11/2021, 07/13, 04/06/2021, Additional history exists Influenza Vaccine (FLU shot) (#1) 2022 GARDASIL-HPV IMMUNIZATION SERIES Aged Out No longer eligible based on patient's age to complete this topic Hepatitis B Aged Out No longer eligi ble based on patient's age to complete this topic MENINGOCOCCAL (MENACTRA/MENVEO) Aged Out No longer eligible based on patient's age to complete this topic documented as of this encounter Medical Devices Implanted Type Area Leg Assembler Device Identifier Shelf Expiration Date Model / Serial / Lot Patch Vascuguard .8x8 [id number] - [id number] Implanted:Qty: 1 on 12/04/2008 at [facility] Tissue - Human Left: Femoral Artery [employer] 04/23/2013 [id number] / / [id number] Stent Smr 10x60 80 [id number] - [id number] Implanted:Qty: 1 on 12/04/2008 at OR [facility] Left: Iliac [employer]ORDIS 05/12/2010 [id number] / / [id number] documented as of this encounter Advance Directives Latest Code Status on File Code Status Date Activated Date Inactivated Comments Full Code 12/04/2008 1:16 PM 12/05/2008 4:04 PM This order reflects the patients wishes and were consensually agreed upon. Care Teams Antisubmarine Weapons Officer Relationship Specialty Start Date End Date Gabriel Thomson MD [address] [place] [id number] PCP - General Family Medicine 02/13/15 documented as of this encounter
--- OUTSIDE RECORDS SUMMARY | 2023-01-25 21:00 | External Medical Summary ---
Author Name Unknown Address Unknown Organization [facility] [address] [place] [id number] Laboratory Report Ordering Provider Test Date Status LISA VERDIN 01/22/2023 06:05:00 Final Observation Date Value Abnormality Reference (Units ) Status BUN 01/22/2023 06:05:00 69 Above high normal 6-20 (mg/dL) Final Creatinine 01/22/2023 06:05:00 3.6 Above high normal 0.6-1.2 (mg/dL) Final Glomerular filtration rate/1.73 sq M.predicted [Volume Rate/Area] in Serum, Plasma or Blood by Creatinine-based formula (CKD-EPI) 01/22/2023 06:05:00 17 Below low normal >=60 (mL/min) Final eGFR is calculated based on the CKD-EPI 2020 equation SODIUM 01/22/2023 06:05:00 148 Above high normal 13 5-146 (mmol/L) Final Potassium 01/22/2023 06:05:00 4.8 3.5-5.1 (m mol/L) Final Cl 01/22/2023 06:05:00 103 98-107 (mm ol/L) Final CO2 01/22/2023 06:05:00 28 22-32 (mmo l/L) Final Anion gap 01/22/2023 06:05:00 17 Above high normal 7- 15 (mmol/L) Final Glucose 01/22/2023 06:05:00 176 Above high normal 70 -120 (mg/dL) Final Calcium 01/22/2023 06:05:00 9.1 8.4-10.2 ( mg/dL) Final Performing Location [facility] [address] [place] [id number]
--- OUTSIDE RECORDS SUMMARY | 2023-01-25 21:00 | External Medical Summary | Summary of Care ---
Author Name Unknown Organization [facility] Address [address] [place] [address] Phone [phone] Care Team Providers Care Academic Affairs Vice President Name Role Phone Gabriel Thomson MD Primary Care Provider + Reason for Visit * Reason Onset Date Comments Films 12/20/2022 Encounter Details Date Type Department Care Team Description 12/20/2022 Telephone Radiology Film File [address], [place] [id number] Juan Craven, DEMOND [address], [place] [id number] Films Allergies Active Allergy Reactions Severity Noted Date [...] mg by mouth daily. 0 08/17/2019 Active [place]-3 Fatty Acids (OMEGA 3 500) 500 MG [...] encounter Miscellaneous Notes * Telephone Encounter - ELDA Medrano - 12/20/2022 1:42 PM EDT Received phone request from [facility] for 12/17/21 CT & 11/13/20 CT images. [place] Authorization on file to release. Images sent using Ext to [facility] All Send [employer] Report(s) not needed. documented in this encounter Plan of Treatment Upcoming Encounters Date Type Specialty Care Team Description 01/24/2023 Appointment Radiology 02/10/2023 Office Visit Vascular Surgery Rylan Garcia MD [address] [place] [address] Health Maintenance Due Date Last Done Comments Lipid Panel 1949 COVID-19 Vaccine (#1) 02/19/1950 Depression Screening 1961 Albumin/Creatinine Ratio 08/21/1967 Hepatitis C Screening 08/21/1967 Cologuard 1994 Colonoscopy 1994 Colorectal Cancer Screening 1994 Fecal Occult Blood Test 1994 Sigmoidoscopy 1994 LUNG CANCER SCREENING - USE SMARTSET 84740 08/21/1999 Zoster Vaccines (1 of 2) 08/21/1999 [...] this encounter Medical Devices Implanted Type Area Spa Host Device Identifier Shelf Expiration Date Model / Serial / Lot Patch Vascuguard .8x8 [id number] - [id number] [place]planted:Q[place] 1 [place] [facility] [place] Left: Femoral Artery [employer] 04/23/2013 [id number] / / [id number] Stent Smr 10x60 80 [id number] - [id number] Implanted:Qty: 1 on 12/04/2008 [place] [facility] [place]: Iliac ROMI & ROMI CORDIS 05/12/2010 [id number] / / [id number] documented as of this encounter Advance Directives Latest Code Status on File Code Status Date Activated Date Inactivated Comments Full Code 12/04/2008 1:16 PM 12/05/2008 4:04 PM This order reflects the patients wishes and were consensually agreed upon. Care Teams Academic Affairs Vice President Relationship Specialty Start Date End Date Gabriel Thomson MD [address] [place] [address] PCP - General Family Medicine 02/13/15 documented as of this encounter
--- OUTSIDE RECORDS SUMMARY | 2023-01-25 21:00 | External Medical Summary | Summary of Care ---
Author Name Unknown Organization [facility] Address [address] [place] [address] Phone [phone] Care Team Providers Care Floor Clerk Name Role Phone Gabriel Thomson MD Primary Care Provider + Reason for Visit * Reason Onset Date Comments Order Request 10/06/2022 Encounter Details Date Type Department Care Team Description 10/06/2022 Telephone Vascular Surg [facility] [address], [place] [id number] Rylan Garcia MD [address], [place] [phone] Order Request Allergies Active Allergy Reactions Severity Noted Date [...] as of this encounter (statuses as of 10/08/2022) Medications Medication Sig Dispensed Refills Start Date [...] mg by mouth daily. 0 08/17/2019 Active [place]-3 Fatty Acids (OMEGA 3 500) 500 MG [...] as of this encounter (statuses as of 10/08/2022) Active Problems Problem Noted Date Aneurysm of descending thoracic aorta wi thout rupture 12/17/2021 Infrarenal abdominal aortic aneurysm (AA A) without rupture 12/17/2021 HTN, goal below 140/80 11/24/2012 Dyslipidemia, goal to be determined 11/12 History of tobacco use 11/24/2012 HTN, goal below 140/90 01/06/2009 Thoracoabdominal aortic aneurysm (TAAA) without rupture 11/19/2008 documented as of this encounter (statuses as of 10/08/2022) Social History Tobacco Use Types Packs/Day Years [...] Miscellaneous Notes * Telephone Encounter - ELDA Valadez - 10/08/2022 1:33 PM EDT Scheduled rrh * Telephone Encounter - ELDA Valadez - 10/07/2022 2:40 PM EDT Called patient and left message for him to schedule his lab appt before his Dr appt on 02/10 Will try again later rrh * Telephone Encounter - Ivana Talbot LPN - 10/06/2022 2:44 PM EDT Patient was last seen on 12/17/[address] Garcia in [place] and plan was to f/u in 1 year with aortic duplex in [place]. Non contrast CT chest / abd / pelvis not due till 2023. There is an order for aortic duplex. Deidre / Schedulers, Please schedule patient for an aortic duplex in [place] 1-[address] Bustillos appt on 02/10/23. Ivana Talbot LPN 10/06/2022 2:48 PM * Telephone Encounter - Deidre King/ELDA Reyes - 10/06/2022 2:38 PM EDT Yaron called he is schedule for nov for a 1yr fu. Does he he an usld or ct scan before office visit If so order needs placed Thank you mani documented in this encounter Plan of Treatment Upcoming Encounters Date Type Specialty Care Team Description 01/24/2023 Appointment Radiology 02/10/2023 Office Visit Vascular Surgery Rylan Garcia MD [address] [place] [address] Health Maintenance Due Date Last Done Comments Lipid Panel 1949 COVID-19 Vaccine (#1) 02/19/1950 Depression Screening, Annual for Pts 12 and Over 1961 Albumin/Creatinine Ratio 08/21/1967 Hepatitis C Screening 08/21/1967 Cologuard 1994 Colonoscopy 1994 Colorectal Cancer Screening 1994 Fecal Occult Blood Test 1994 Sigmoidoscopy 1994 LUNG CANCER SCREENING - USE SMARTSET 45718 08/21/1999 Zoster Vaccines (1 of 2) 08/21/1999 Pneumococcal Vaccine: 65+ Years (1 - PCV) 2014 GFR 08/11/2022 08/11/2021, 07/13, 04/06/2021, Additional history exists Influenza Vaccine (FLU shot) (#1) 2022 AAA Screening Completed 11/13/2020, 04/2020, 11/12/2019, Additional history exists GARDASIL-HPV IMMUNIZATION SERIES Aged Out No longer eligible based on patient's age to complete this topic Hepatitis B Aged Out No longer eligi ble based on patient's age to complete this topic MENINGOCOCCAL (MENACTRA/MENVEO) Aged Out No longer eligible based on patient's age to complete this topic documented as of this encounter Medical Devices Implanted Type Area Silo Painter Device Identifier Shelf Expiration Date Model / Serial / Lot Patch Vascuguard .8x8 [id number] - [id number] Implanted:Qty: 1 on 12/04/2008 at [place] [facility] [place] - Human Left: Femoral Artery [employer] 04/23/2013 [id number] / / [id number] Stent Smr 10x60 80 [id number] - [id number] Implanted:Qty: 1 on 12/04/2008 at [place] [facility] [place] Left: Iliac ROMI & ROMI CORDIS 05/12/2010 [id number] / / [id number] documented as of this encounter Advance Directives Latest Code Status on File Code Status Date Activated Date Inactivated Comments Full Code 12/04/2008 1:16 PM 12/05/2008 4:04 PM This order reflects the patients wishes and were consensually agreed upon. Care Teams Floor Clerk Relationship Specialty Start Date End Date Gabriel Thomson MD [address] [place] [address] PCP - General Family Medicine 02/13/15 documented as of this encounter
--- OUTSIDE RECORDS SUMMARY | 2023-01-25 21:00 | External Medical Summary | Summary of Care ---
Author Name Unknown Organization [facility] Address [address] [place] [address] Phone [phone] Care Team Providers Care V/Stol Landing Signal Officer Name Role Phone Gabriel Thomson MD Primary Care Provider + Reason for Visit * Reason Onset Date Comments STAIR AAA 11/01/2022 Encounter Details Date Type Department Care Team Description 11/01/2022 Telephone STAIR [facility] [address], [place] [id number] Program, Stair [address] [place] [address] STAIR AAA Allergies Active Allergy Reactions Severity Noted Date [...] as of this encounter (statuses as of 11/01/2022) Medications Medication Sig Dispensed Refills Start Date [...] mg by mouth daily. 0 08/17/2019 Active [place]-3 Fatty Acids (OMEGA 3 500) 500 MG [...] as of this encounter (statuses as of 11/01/2022) Active Problems Problem Noted Date Aneurysm of descending thoracic aorta wi thout rupture 12/17/2021 Infrarenal abdominal aortic aneurysm (AA A) without rupture 12/17/2021 HTN, goal below 140/80 11/24/2012 Dyslipidemia, goal to be determined 11/12 History of tobacco use 11/24/2012 HTN, goal below 140/90 01/06/2009 Thoracoabdominal aortic aneurysm (TAAA) without rupture 11/19/2008 documented as of this encounter (statuses as of 11/01/2022) Social History Tobacco Use Types Packs/Day Years [...] encounter Miscellaneous Notes * Telephone Encounter - Evie Lemon LPN - 11/01/2022 2:01 PM EDT AAA - Clinical Summary Name: Yaron Acosta Age: [age] year old AAA Review: Initial Patient Identified by: Problem List Report Imaging Interpretation: Duplex Type of Result: SP EVAR AAA Care Plan Recommendation: Aortic Duplex - details below Details: in 1 year Next steps: No action needed at this time. Patient is already established with vascular surgery. Next clinic visit with testing prior is already scheduled with Dr Garcia. Will continue to track. Patient managed in STAIR Program for Abdominal Aortic Aneurysm - banner added Evie Lemon LPN Coordinator STAIR (System to Track Abnormalities of Importance Reliably) [facility] AORTIC DUPLEX EVAL-COMPLETE 11/13/2020 Narrative VASCULAR LAB RESULTS DATE OF EXAMINATION: 11/13/20 INDICATION: S/P EVAR and R YAKOV aneurysm distal to limb previouly noted on OSH CT scan AORTIC STENT GRAFT DUPLEX EXAMINATION Immediately before proceeding with the vascular lab procedure reported below, the identity of the patient, the correct exam and the correct procedural site were identified. Color flow Doppler and spectral analysis techniques were applied during this ultrasound image examination. The proximal aorta is patent with a velocity of 45 cm/sec and a diameter of 3.0 cm by 2.91 cm.. The proximal aortic graft located in the mid-aorta is patent with a velocity of 39 cm/sec and a maximum aortic aneurysm sac diameter of 2.86 cm by 3.13 cm. The distal aorta patent with a velocity of 39 cm/sec and a maximum aortic aneurysm sac diameter of 3.34 cm by 3.48 cm. The right iliac graft limb is patent with a velocity of 107 cm/sec at the distal stent. The maximum diameter of the right limb is 1.09 cm by 1.19 cm. The right external iliac artery has a velocity of 82 cm/sec with a triphasic waveform. The left iliac graft limb is patent with a velocity of 99 cm/sec at the distal stent. The maximum diameter of the left limb is 1.66 cm by 1.66 cm. The left external iliac artery has a velocity of 195 cm/sec with a triphasic waveform. The aneurysm sac has a maximum transverse dimension of 4.1 cm by 3.53 cm. The aneurysm sac has no color flow within its lumen. CONCLUSIONS: Patent abdominal aortic stent graft and stent graft limbs. No evidence of endoleak by color flow duplex in the aneurysm sac. 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 Unable to confirm section of the right limb graft which previously measured 2.9 x 2.9 cm due to gasand inability to follow the entire length of the limb grafts. documented in this encounter Plan of Treatment Upcoming Encounters Date Type Specialty Care Team Description 01/24/2023 Appointment Radiology 02/10/2023 Office Visit Vascular Surgery Rylan Garcia MD [address] [place] [address] Health Maintenance Due Date Last Done Comments Lipid Panel 1949 COVID-19 Vaccine (#1) 02/19/1950 Depression Screening, Annual for Pts 12 and Over 1961 Albumin/Creatinine Ratio 08/21/1967 Hepatitis C Screening 08/21/1967 Cologuard 1994 Colonoscopy 1994 Colorectal Cancer Screening 1994 Fecal Occult Blood Test 1994 Sigmoidoscopy 1994 LUNG CANCER SCREENING - USE SMARTSET 61395 08/21/1999 Zoster Vaccines (1 of 2) 08/21/1999 Pneumococcal Vaccine: 65+ Years (1 - PCV) 2014 AAA Monitoring 11/13/2021 11/13/2020, 04/2020, 11/12/2019, Additional history exists GFR 08/11/2022 08/11/2021, 07/13, 04/06/2021, Additional history [...] this encounter Medical Devices Implanted Type Area Couples Therapist Device Identifier Shelf Expiration Date Model / Serial / Lot Patch Vascuguard .8x8 [id number] - [id number] Implanted:Qty: 1 on 12/04/2008 at OR [facility] Tissue - Human Left: Femoral Artery [employer] 04/23/2013 [id number]-[id number] / / [id number] Stent Smr 10x60 80 [id number] - [id number] Implanted:Qty: 1 on 12/04/2008 at OR [facility] Left: Iliac ROMI & ROMI CORDIS 05/12/2010 [id number] / / [id number] documented as of this encounter Advance Directives Latest Code Status on File Code Status Date Activated Date Inactivated Comments Full Code 12/04/2008 1:16 PM 12/05/2008 4:04 PM This order reflects the patients wishes and were consensually agreed upon. Care Teams V/Stol Landing Signal Officer Relationship Specialty Start Date End Date Gabriel Thomson MD [address] [place] [address] PCP - General Family Medicine 02/13/15 documented as of this encounter
--- OUTSIDE RECORDS SUMMARY | 2023-01-25 21:00 | External Medical Summary | Summary of Care ---
Author Name Unknown Organization [facility] Address [address] [place] [address] Phone [phone] Care Team Providers Care Fan Blade Truer Name Role Phone Gabriel Thomson MD Primary Care Provider + Reason for Visit * Reason Onset Date Comments Order Request 10/06/2022 Encounter Details Date Type Department Care Team Description 10/06/2022 Telephone Vascular Surg [facility] [address], [place] [phone] Rylan Garcia MD [address] [place], [place] [phone] Order Request Allergies Active Allergy Reactions Severity [...] mg by mouth daily. 0 08/17/2019 Active [place]-3 Fatty Acids (OMEGA 3 500) 500 MG [...] Telephone Encounter - ELDA Valadez - 10/08/2022 1:42 PM EDT Scheduled rrh * Telephone Encounter [...] seen on 12/17/[address] Garcia in [place] and plan was to f/u in 1 year with aortic duplex in [place]. Non contrast CT chest / abd / pelvis not due till 2023. There is an order for aortic duplex. Deidre / Schedulers, Please schedule patient for an aortic duplex in [place] 1-[address] Bustillos appt [...] Vascular Surgery Rylan Garcia MD [address] [place] [address] Health Maintenance Due Date Last Done Comments Lipid Panel 1949 COVID-19 Vaccine (#1) 02/19/1950 Depression Screening, Annual for Pts 12 and Over 1961 Albumin/Creatinine Ratio 08/21/1967 Hepatitis C Screening 08/21/1967 Cologuard 1994 Colonoscopy 1994 Colorectal Cancer Screening 1994 Fecal Occult Blood Test 1994 Sigmoidoscopy 1994 LUNG CANCER SCREENING - USE SMARTSET 33608 08/21/1999 Zoster Vaccines (1 of 2) 08/21/1999 [...] this encounter Medical Devices Implanted Type Area Glass Production Machine Operator Device Identifier Shelf Expiration Date Model / Serial / Lot Patch Vascuguard .8x8 [id number] - [id number] Implanted:Qty: 1 on 12/04/2008 [place] [facility] [place] - Human Left: Femoral Artery [employer] 04/23/2013 VG-[id number] / / [id number] Stent Smr 10x60 80 [id number] - [id number] Implanted:Qty: 1 on 12/04/2008 [place] [facility] [place]: Iliac ROMI & ROMI CORDIS 05/12/2010 [id number] / / [id number] documented as of this encounter Advance Directives Latest Code Status on File Code Status Date Activated Date Inactivated Comments Full Code 12/04/2008 1:16 PM 12/05/2008 4:04 PM This order reflects the patients wishes and were consensually agreed upon. Care Teams Fan Blade Truer Relationship Specialty Start Date End Date Gabriel Thomson MD [address] [place] [address] PCP - General Family Medicine 02/13/15 documented as of this encounter
--- OUTSIDE RECORDS SUMMARY | 2023-01-25 21:01 | External Medical Summary | Summary of Care ---
Author Name Unknown Organization [facility] Address [address] [place] [address] Phone [phone] Care Team Providers Care Bottom Finisher Name Role Phone Gabriel Thomson MD Primary Care Provider + Reason for Visit * Reason Onset Date Comments Appointment 09/28/2022 recall Encounter Details Date Type Department Care Team Description 09/28/2022 Telephone Vascular Surg [facility] [address] [place], [place] [phone] Rylan Garcia MD [address], [place] [phone] Appointment (recall) Allergies Active Allergy Reactions Severity Noted Date [...] as of this encounter (statuses as of 10/01/2022) Medications Medication Sig Dispensed Refills Start Date [...] mg by mouth daily. 0 08/17/2019 Active [place]-3 Fatty Acids (OMEGA 3 500) 500 MG [...] as of this encounter (statuses as of 10/01/2022) Active Problems Problem Noted Date Aneurysm of descending thoracic aorta wi thout rupture 12/17/2021 Infrarenal abdominal aortic aneurysm (AA A) without rupture 12/17/2021 HTN, goal below 140/80 11/24/2012 Dyslipidemia, goal to be determined 11/12 History of tobacco use 11/24/2012 HTN, goal below 140/90 01/06/2009 Thoracoabdominal aortic aneurysm (TAAA) without rupture 11/19/2008 documented as of this encounter (statuses as of 10/01/2022) Social History Tobacco Use Types Packs/Day Years [...] * Telephone Encounter - ELDA Valadez - 10/01/2022 7:44 AM EDT Sent letter Recall rrh * Telephone Encounter - ELDA Valadez - 09/30/2022 11:03 AM EDT Called patient x2 to schedule his 2 year return Left message rrh * Telephone Encounter - ELDA Valadez - 09/28/2022 2:30 PM EDT RTC in [address] Garcia at [place] with aortic duplex Called and left message for patient to schedule his year return Would like to put it on thads schedule on 10/14/22 if possible rrh documented in this encounter Plan of Treatment Health Maintenance Due Date Last Done Comments Lipid Panel 1949 COVID-19 Vaccine (#1) 02/19/1950 Depression Screening, Annual for Pts 12 and Over 1961 Albumin/Creatinine Ratio 08/21/1967 Hepatitis C Screening 08/21/1967 Cologuard 1994 Colonoscopy 1994 Colorectal Cancer Screening 1994 Fecal Occult Blood Test 1994 Sigmoidoscopy 1994 LUNG CANCER SCREENING - USE SMARTSET 98014 08/21/1999 Zoster Vaccines (1 of 2) 08/21/1999 [...] this encounter Medical Devices Implanted Type Area Wood Molder Device Identifier Shelf Expiration Date Model / Serial / Lot Patch [place] .8x8 [id number] - [id number] Implanted:Qty: 1 on 12/04/2008 [place] [facility] [place] Tissue - Human Left: Femoral Artery [employer] 04/23/2013 VG-0108N / / [id number] Stent Smr 10x60 80 [id number] - [id number] Implanted:Qty: 1 on 12/04/2008 at [place] [facility] [place] Left: Iliac ROMI & ROMI CORDIS 05/12/2010 [id number] / / [id number] documented as of this encounter Advance Directives Latest Code Status on File Code Status Date Activated Date Inactivated Comments Full Code 12/04/2008 1:16 PM 12/05/2008 4:04 PM This order reflects the patients wishes and were consensually agreed upon. Care Teams Bottom Finisher Relationship Specialty Start Date End Date Gabriel Thomson MD [address] [place] [address] PCP - General Family Medicine 02/13/15 documented as of this encounter
--- OUTSIDE RECORDS SUMMARY | 2023-01-25 21:01 | External Medical Summary | Summary of Care ---
Author Name Unknown Organization [facility] Address [address] [place] [address] Phone [phone] Care Team Providers Care Wood Repatcher Name Role Phone Gabriel Thomson MD Primary Care Provider + Reason for Visit * Reason Onset Date Comments Order Request 10/06/2022 Encounter Details Date Type Department Care Team Description 10/06/2022 Telephone Vascular Surg [facility] [address] [place], [place] [phone] Rylan Garcia MD [address] [place], [place] [phone] Order Request Allergies Active Allergy Reactions Severity [...] as of this encounter (statuses as of 10/06/2022) Medications Medication Sig Dispensed Refills Start Date [...] mg by mouth daily. 0 08/17/2019 Active [place]-3 Fatty Acids (OMEGA 3 500) 500 MG [...] as of this encounter (statuses as of 10/06/2022) Active Problems Problem Noted Date Aneurysm of descending thoracic aorta wi thout rupture 12/17/2021 Infrarenal abdominal aortic aneurysm (AA A) without rupture 12/17/2021 HTN, goal below 140/80 11/24/2012 Dyslipidemia, goal to be determined 11/12 History of tobacco use 11/24/2012 HTN, goal below 140/90 01/06/2009 Thoracoabdominal aortic aneurysm (TAAA) without rupture 11/19/2008 documented as of this encounter (statuses as of 10/06/2022) Social History Tobacco Use Types Packs/Day Years [...] encounter Miscellaneous Notes * Telephone Encounter - Ivana Talbot LPN - 10/06/2022 2:44 PM EDT Patient was last seen on 12/17/[address] Garcia in [place] and plan was to f/u in 1 year with aortic duplex in [place]. Non contrast CT chest / abd / pelvis not due till 2023. There is an order for aortic duplex. Deidre / Schedulers, Please schedule patient for an aortic duplex in [place] 1-[address] Bustillos appt on 02/10/23. Ivnaa Talbot LPN 10/06/2022 2:48 PM * Telephone Encounter - Deidre Ann Ob/Or ELDA Magana - 10/06/2022 2:38 PM EDT Yaron called he is schedule for nov for a 1yr fu. Does he he an usld or ct scan before office visit If so order needs placed Thank you mani documented in this encounter Plan of Treatment Upcoming Encounters Date Type Specialty Care Team Description 02/10/2023 Office Visit Vascular Surgery Rylan Garcia MD [address] [place] [address] Health Maintenance Due Date Last Done Comments Lipid Panel 1949 COVID-19 Vaccine (#1) 02/19/1950 Depression Screening, Annual for Pts 12 and Over 1961 Albumin/Creatinine Ratio 08/21/1967 Hepatitis C Screening 08/21/1967 Cologuard 1994 Colonoscopy 1994 Colorectal Cancer Screening 1994 Fecal Occult Blood Test 1994 Sigmoidoscopy 1994 LUNG CANCER SCREENING - USE SMARTSET 20393 08/21/1999 Zoster Vaccines (1 of 2) 08/21/1999 Pneumococcal Vaccine: 65+ Years (1 - PCV) 2014 GFR 08/11/2022 08/11/2021, /2 07/2021, 04/06/2021, Additional history exists Influenza Vaccine (FLU [...] this encounter Medical Devices Implanted Type Area Treating And Pumping Supervisor Device Identifier Shelf Expiration Date Model / Serial / Lot Patch Vascuguard .8x8 [id number] - [id number] Implanted:Qty: 1 on 12/04/2008 at [place] [facility] [place] Tissue - Human Left: Femoral Artery [employer] 04/23/2013 VG-[id number] / / [id number] Stent Smr 10x60 80 [id number] - [id number] Implanted:Qty: 1 on 12/04/2008 at OR [facility] [place] Left: Iliac ROMI & ROMI CORDIS 05/12/2010 [id number] / / [id number] documented as of this encounter Advance Directives Latest Code Status on File Code Status Date Activated Date Inactivated Comments Full Code 12/04/2008 1:16 PM 12/05/2008 4:04 PM This order reflects the patients wishes and were consensually agreed upon. Care Teams Wood Repatcher Relationship Specialty Start Date End Date Gabriel Thomson MD [address] [place] [address] PCP - General Family Medicine 02/13/15 documented as of this encounter
--- OUTSIDE RECORDS SUMMARY | 2023-01-25 21:01 | External Medical Summary | Summary of Care ---
Author Name Unknown Organization [facility] Address [address] [place] [address] Phone [phone] Care Team Providers Care Bulk Folder Name Role Phone Gabriel Thomson MD Primary Care Provider + Reason for Visit * Reason Onset Date Comments Appointment 09/28/2022 Year return Encounter Details Date Type Department Care Team Description 09/28/2022 Telephone Vascular Surg [facility] [address], [place] [id number] Rylan Garcia MD [address] [place] [address] Appointment (Year return) Allergies Active Allergy Reactions Severity Noted Date [...] as of this encounter (statuses as of 09/29/2022) Medications Medication Sig Dispensed Refills Start Date [...] mg by mouth daily. 0 08/17/2019 Active [place]-3 Fatty Acids (OMEGA 3 500) 500 MG [...] as of this encounter (statuses as of 09/29/2022) Active Problems Problem Noted Date Aneurysm of descending thoracic aorta wi thout rupture 12/17/2021 Infrarenal abdominal aortic aneurysm (AA A) without rupture 12/17/2021 HTN, goal below 140/80 11/24/2012 Dyslipidemia, goal to be determined 11/12 History of tobacco use 11/24/2012 HTN, goal below 140/90 01/06/2009 Thoracoabdominal aortic aneurysm (TAAA) without rupture 11/19/2008 documented as of this encounter (statuses as of 09/29/2022) Social History Tobacco Use Types Packs/Day Years [...] in [address] Garcia at [place] with aortic duplex Called and left message [...] 1994 LUNG CANCER SCREENING - USE SMARTSET 82179 08/21/1999 Zoster Vaccines (1 of 2) 08/21/1999 Pneumococcal Vaccine: 65+ Years (1 - PCV) 2014 AAA ULTRASOUND YEARLY 11/13/2021 11/13/2020 , 11/13/2020, 11/12/2019, Additional history exists GFR 08/11/2022 08/11/2021, [...] this encounter Medical Devices Implanted Type Area Owner Oral Surgeon Device Identifier Shelf Expiration Date Model / Serial / Lot Patch Vascuguard .8x8 [id number] - [id number] [place] [facility] [place] Left: Femoral Artery [employer] 04/23/2013 [id number] / / [id number] Stent Smr 10x60 80 [id number] - [id number] Implanted:Qty: 1 [place]04[place] [facility] [place]: Iliac ROMI & ROMI CORDIS 05/12/2010 [id number] / / [id number] documented as of this encounter Advance Directives Latest Code Status on File Code Status Date Activated Date Inactivated Comments Full Code 12/04/2008 1:16 PM 12/05/2008 4:04 PM This order reflects the patients wishes and were consensually agreed upon. Care Teams Bulk Folder Relationship Specialty Start Date End Date Gabriel Thomson MD [address] [place] [address] PCP - General Family Medicine 02/13/15 documented as of this encounter
--- OUTSIDE RECORDS SUMMARY | 2023-01-25 21:01 | External Medical Summary | Summary of Care ---
Author Name Unknown Organization [facility] Address [address] [place] [address] Phone [phone] Care Team Providers Care Ui Designer Name Role Phone Gabriel Thomson MD Primary Care Provider + Reason for Visit * Reason Onset Date Comments Order Request 10/06/2022 Encounter Details Date Type Department Care Team Description 10/06/2022 Telephone Vascular Surg [facility] [address], [place] [id number] Rylan Garcia MD [address] [place], [place] [phone] Order Request Allergies Active Allergy Reactions Severity [...] mg by mouth daily. 0 08/17/2019 Active [place]-3 Fatty Acids (OMEGA 3 500) 500 MG [...] seen on 12/17/[address] Garcia in [place] and plan was to f/u in 1 year with aortic duplex in [place]. Non contrast CT chest / abd / pelvis not due till 2023. There is an order for aortic duplex. Deidre / Schedulers, Please schedule patient for an aortic duplex in [place] 1-[address] Bustillos appt [...] Vascular Surgery Rylan Garcia MD [address] [place] [address] Health Maintenance Due Date Last Done Comments Lipid Panel 1949 COVID-19 Vaccine (#1) 02/19/1950 Depression Screening, Annual for Pts 12 and Over 1961 Albumin/Creatinine Ratio 08/21/1967 Hepatitis C Screening 08/21/1967 Cologuard 1994 Colonoscopy 1994 Colorectal Cancer Screening 1994 Fecal Occult Blood Test 1994 Sigmoidoscopy 1994 LUNG CANCER SCREENING - USE SMARTSET [id number] 08/21/1999 Zoster Vaccines (1 of 2) 08/21/1999 [...] this encounter Medical Devices Implanted Type Area Physics Technician Device Identifier Shelf Expiration Date Model / Serial / Lot Patch Vascuguard .8x8 [id number] - [id number] Implanted:Q[place] 1 [place] [facility] [place] Left: Femoral Artery [employer] 04/23/2013 [id number] / / [id number] Stent Smr 10x60 80 [id number] - [id number] Implanted:Qty: 1 [place] [facility] [place] Iliac ROMI [employer] ROMI CORDIS 05/12/2010 [id number] / / [id number] documented as of this encounter Advance Directives Latest Code Status on File Code Status Date Activated Date Inactivated Comments Full Code 12/04/2008 1:16 PM 12/05/2008 4:04 PM This order reflects the patients wishes and were consensually agreed upon. Care Teams Ui Designer Relationship Specialty Start Date End Date Gabriel Thomson MD [address] [place] [address] PCP - General Family Medicine 02/13/15 documented as of this encounter
--- OUTSIDE RECORDS SUMMARY | 2023-01-25 21:01 | External Medical Summary | Summary of Care ---
Author Name Unknown Organization [facility] Address [address] [place] [address] Phone [phone] Care Team Providers Care Tape Stringer Name Role Phone Gabriel Thomson MD Primary Care Provider + Reason for Visit * Reason Onset Date Comments Appointment 09/28/2022 recall Encounter Details Date Type Department Care Team Description 09/28/2022 Telephone Vascular Surg [facility] [address] [place], [place] [phone] Rylan Garcia MD [address], [place] [phone] Appointment (recall) Allergies Active Allergy Reactions Severity [...] mg by mouth daily. 0 08/17/2019 Active [place]-3 Fatty Acids (OMEGA 3 500) 500 MG [...] in [address] Garcia at [place] with aortic duplex Called and left message [...] 1994 LUNG CANCER SCREENING - USE SMARTSET 05717 08/21/1999 Zoster Vaccines (1 of 2) 08/21/1999 [...] this encounter Medical Devices Implanted Type Area Stock Chaser Device Identifier Shelf Expiration Date Model / Serial / Lot Patch Mello .8x8 [id number] - [id number] Implanted:Qty: 1 on 12[place] [facility] [place] Left: Femoral Artery [employer] 04/23/2013 [id number]-[id number] / / [id number] Stent Smr 10x60 80 [id number] - [id number] Implanted:Qty: 1 on 12[place]04[place]2008 [place] [facility] [place] Iliac ROMI & ROMI CORDIS 05/12/2010 [id number] / / [id number] documented as of this encounter Advance Directives Latest Code Status on File Code Status Date Activated Date Inactivated Comments Full Code 12/04/2008 1:16 PM 12/05/2008 4:04 PM This order reflects the patients wishes and were consensually agreed upon. Care Teams Tape Stringer Relationship Specialty Start Date End Date Gabriel Thomson MD [address] [place] [address] PCP - General Family Medicine 02/13/15 documented as of this encounter
--- OUTSIDE RECORDS SUMMARY | 2023-01-25 21:01 | External Medical Summary | Summary of Care ---
Author Name Unknown Organization [facility] Address [address] [place] [address] Phone [phone] Care Team Providers Care Ornamenter Hand Name Role Phone Gabriel Thomson MD Primary Care Provider + Reason for Visit * Reason Onset Date Comments Order Request 10/06/2022 Encounter Details Date Type Department Care Team Description 10/06/2022 Telephone Vascular Surg [facility] [address] [place], [place] [phone] Rylan Garcia MD [address] [place], [place] [phone] Order Request Allergies Active Allergy Reactions Severity [...] as of this encounter (statuses as of 10/07/2022) Medications Medication Sig Dispensed Refills Start Date [...] mg by mouth daily. 0 08/17/2019 Active [place]-3 Fatty Acids (OMEGA 3 500) 500 MG [...] as of this encounter (statuses as of 10/07/2022) Active Problems Problem Noted Date Aneurysm of descending thoracic aorta wi thout rupture 12/17/2021 Infrarenal abdominal aortic aneurysm (AA A) without rupture 12/17/2021 HTN, goal below 140/80 11/24/2012 Dyslipidemia, goal to be determined 11/12 History of tobacco use 11/24/2012 HTN, goal below 140/90 01/06/2009 Thoracoabdominal aortic aneurysm (TAAA) without rupture 11/19/2008 documented as of this encounter (statuses as of 10/07/2022) Social History Tobacco Use Types Packs/Day Years [...] appt on 02/10 Will try again later [facility] * Telephone Encounter - Ivana Talbot LPN - 10/06/2022 2:44 PM EDT Patient was last seen on 12/17/[address] Garcia in [place] and plan was to f/u in 1 year with aortic duplex in [place]. Non contrast CT chest / abd / pelvis not due till 2023. There is an order for aortic duplex. Deidre / Schedulers, Please schedule patient for an aortic duplex in [place] 1-[address] Bustillos appt on 02/10/23. Ivana Talbot LPN 10/06/2022 2:48 PM * Telephone Encounter - Deidre [place]/Or ELDA Magana - 10/06/2022 2:38 PM EDT Yaron called he is schedule for nov for a 1yr fu. Does he he an usld or ct scan before office visit If so order needs placed Thank you mani documented in this encounter Plan of Treatment Upcoming Encounters Date Type Specialty Care Team Description 02/10/2023 Office Visit Vascular Surgery Rylna Garcia MD [address] [place] [address] Health Maintenance Due Date Last Done Comments Lipid Panel 1949 COVID-19 Vaccine (#1) 02/19/1950 Depression Screening, Annual for Pts 12 and Over 1961 Albumin/Creatinine Ratio 08/21/1967 Hepatitis C Screening 08/21/1967 Cologuard 1994 Colonoscopy 1994 Colorectal Cancer Screening 1994 Fecal Occult Blood Test 1994 Sigmoidoscopy 1994 LUNG CANCER SCREENING - USE SMARTSET 23954 08/21/1999 Zoster Vaccines (1 of 2) 08/21/1999 [...] this encounter Medical Devices Implanted Type Area Glove Tagger Device Identifier Shelf Expiration Date Model / Serial / Lot Patch Vascuguard .8x8 [id number] - [id number] Implanted:Qty: 1 on 12/04/2008 at [place] [facility] [place] - Human Left: Femoral Artery [employer] 04/23/2013 [id number]-[id number] / / [id number] Stent Smr 10x60 80 [id number] - [id number] Implanted:Qty: 1 on 12/04/2008 at [place] [facility] [place] Left: Iliac ROMI & ROMI CORDIS 05/12/2010 [id number] / / [id number] documented as of this encounter Advance Directives Latest Code Status on File Code Status Date Activated Date Inactivated Comments Full Code 12/04/2008 1:16 PM 12/05/2008 4:04 PM This order reflects the patients wishes and were consensually agreed upon. Care Teams Ornamenter Hand Relationship Specialty Start Date End Date Gabriel Thomson MD [address] [place] [address] PCP - General Family Medicine 02/13/15 documented as of this encounter
--- OUTSIDE RECORDS SUMMARY | 2023-01-25 21:01 | External Medical Summary | Summary of Care ---
Author Name Unknown Organization [facility] Address [address] [place] [address] Phone [phone] Care Team Providers Care Hall Worker Name Role Phone Gabriel Thomson MD Primary Care Provider + Reason for Visit * Reason Onset Date Comments Appointment 09/28/2022 recall Encounter Details Date Type Department Care Team Description 09/28/2022 Telephone Vascular Surg [facility] [address] [place], [place] [phone] Rylan Garcia MD [address] [place], [place] [phone] Appointment (recall) Allergies Active Allergy Reactions Severity [...] as of this encounter (statuses as of 09/30/2022) Medications Medication Sig Dispensed Refills Start Date [...] mg by mouth daily. 0 08/17/2019 Active [place]-3 Fatty Acids (OMEGA 3 500) 500 MG [...] as of this encounter (statuses as of 09/30/2022) Active Problems Problem Noted Date Aneurysm of descending thoracic aorta wi thout rupture 12/17/2021 Infrarenal abdominal aortic aneurysm (AA A) without rupture 12/17/2021 HTN, goal below 140/80 11/24/2012 Dyslipidemia, goal to be determined 11/12 History of tobacco use 11/24/2012 HTN, goal below 140/90 01/06/2009 Thoracoabdominal aortic aneurysm (TAAA) without rupture 11/19/2008 documented as of this encounter (statuses as of 09/30/2022) Social History Tobacco Use Types Packs/Day Years [...] in [address] Garcia at [place] with aortic duplex Called and left message [...] 1994 LUNG CANCER SCREENING - USE SMARTSET 24917 08/21/1999 Zoster Vaccines (1 of 2) 08/21/1999 [...] this encounter Medical Devices Implanted Type Area Grey Tender Device Identifier Shelf Expiration Date Model / Serial / Lot Patch Vascuguard .8x8 [id number] - [id number] Implanted:Qty: 1 on 12/04/2008 at [facility] [place] Tissue - Human Left: Femoral Artery [employer] 04/23/2013 [id number]-[id number] / / [id number] Stent Smr 10x60 80 [id number] - [id number] Implanted:Qty: 1 on 12/04/2008 at [facility] Left: Iliac ROMI & ROMI CORDIS 05/12/2010 [id number] / / [id number] documented as of this encounter Advance Directives Latest Code Status on File Code Status Date Activated Date Inactivated Comments Full Code 12/04/2008 1:16 PM 12/05/2008 4:04 PM This order reflects the patients wishes and were consensually agreed upon. Care Teams Hall Worker Relationship Specialty Start Date End Date Gabriel Thomson MD [address] [place] [address] PCP - General Family Medicine 02/13/15 documented as of this encounter
--- OUTSIDE RECORDS SUMMARY | 2023-01-25 21:01 | External Medical Summary | Summary of Care ---
Author Name Unknown Organization [facility] Address [address] [place] [address] Phone [phone] Care Team Providers Care Corporate Recruiter Name Role Phone Gabriel Thomson MD Primary Care Provider + Reason for Visit * Reason Onset Date Comments Appointment 09/28/2022 recall Encounter Details Date Type Department Care Team Description 09/28/2022 Telephone Vascular Surg [facility] [address] [place], [place] [phone] Rylan Garcia MD [address] [place], [place] [phone] Appointment (recall) Allergies Active Allergy Reactions Severity [...] mg by mouth daily. 0 08/17/2019 Active [place]-3 Fatty Acids (OMEGA 3 500) 500 MG [...] in [address] Garcia at [place] with aortic duplex Called and left message [...] 1994 LUNG CANCER SCREENING - USE SMARTSET 45042 08/21/1999 Zoster Vaccines (1 of 2) 08/21/1999 Pneumococcal Vaccine: 65+ Years (1 - PCV) 2014 GFR 08/11/2022 08/11/2021, 07/13, 04/06/2021, Additional history exists Influenza Vaccine (FLU shot) (#1) 2022 AAA Screening Completed 12/17/2021, 04/2020, 11/13/2020, Additional history exists GARDASIL-HPV IMMUNIZATION SERIES Aged Out No longer eligible based on patient's age to complete this topic Hepatitis B Aged Out No longer eligi ble based on patient's age to complete this topic MENINGOCOCCAL (MENACTRA/MENVEO) Aged Out No longer eligible based on patient's age to complete this topic documented as of this encounter Medical Devices Implanted Type Area Group Reservations Coordinator Device Identifier Shelf Expiration Date Model / Serial / Lot Patch Vascuguard .8x8 [id number] - [id number] Implanted:Qty: 1 on 12/04/2008 [place] [facility] [place] - Human Left: Femoral Artery [employer] 04/23/2013 VG-[id number] / / [id number] Stent Smr 10x60 80 [id number] - [id number] Implanted:Qty: 1 on 12/04/2008 at [place] [facility] [place] Left: Iliac ROMI & ROMI CORDIS 05/12/2010 [id number] / / [id number] documented as of this encounter Advance Directives Latest Code Status on File Code Status Date Activated Date Inactivated Comments Full Code 12/04/2008 1:16 PM 12/05/2008 4:04 PM This order reflects the patients wishes and were consensually agreed upon. Care Teams Corporate Recruiter Relationship Specialty Start Date End Date Gabriel Thomson MD [address] [place] [address] PCP - General Family Medicine 02/13/15 documented as of this encounter
[2023-01-26 05:04] LABS: Basophils # (auto) 0.02 K/uL (0.00-0.20); Basophils % (auto) 0.2 %; Eosinophils % (auto) 2.5 %; Hematocrit (blood only) 25.8 % (42.0-52.0); Hemoglobin 8.1 g/dl (14.0-18.0); Immature Granulocytes # (auto) 0.06 K/uL (0.01-0.20); Immature Granulocytes % (auto) 0.7 %; Lymphocytes # (auto) 1.44 K/uL (1.20-3.40); Lymphocytes % (auto) 17.8 %; Mean Corpuscular Hemoglobin 28.7 pg (25.0-34.0); Mean Corpuscular Hgb Conc 31.4 g/dL (32.0-36.0); Mean Corpuscular Volume 91.5 fL (80.0-100.0); Mean Platelet Volume 10.2 fL (9.4-12.4); Monocytes # (auto) 0.43 K/uL (0.11-0.59); Monocytes % (auto) 5.3 %; Neutrophils # (auto) 5.95 K/uL (1.40-6.50); Neutrophils % (auto) 73.5 %; Platelet Count 269 K/uL (130-400); RDW Coefficient of Variation 15.3 % (11.5-14.5); Red Blood Count 2.82 M/uL (4.70-6.10)
[2023-01-26 05:23] LABS: Albumin Globulin Ratio 0.6 (0.9-2); Albumin Level 2.3 gm/dl (3.4-5.0); BUN Creatinine Ratio 20.1 (10-20); Bilirubin,Total 0.4 mg/dl (0.2-1.0); Calcium 8.3 mg/dl (8.6-10.3); Creatinine Clr Calc Pharmacy 27.7 ml/min; Est GFR (African American) 28.6 ml/min; Est GFR (Non-African American) 24.7 ml/min; Globulin 3.7 gm/dl (2.5-4.0); Phosphorus 3.8 mg/dl (2.5-4.9); Potassium 3.7 mmol/L (3.5-5.1)
[2023-01-26] MEDS: HEPARIN SODIUM/DEXTROSE 25,000 UNITS/500 ML BAG IV SCH (05:40)
[2023-01-26 05:45] LABS: Partial Thromboplastin Ratio 1.7
[2023-01-26] MEDS: INSULIN ASPART PER UNIT CHARGE SC SCH ×3 (05:47→18:07)
[2023-01-26 05:53] LABS: Partial Thromboplastin Time 47.8 Seconds (21.0-31.0)
[2023-01-26] MEDS ORDERED: POTASSIUM CHLORIDE 20 MEQ/15 ML UDC PO STA (05:58)
--- NOTE | 2023-01-26 07:41 | Critical Care Progress Note ---
Date of Service January 26, 2023 Assessment & Plan (1) Acute renal disease: (2) Endotracheally intubated: (3) Complicated UTI (urinary tract infection): (4) Uremia: (5) Acute encephalopathy: (6) Acute respiratory failure with hypoxia: (7) Acute UTI: (8) AMS (altered mental status): (9) Acute respiratory failure with hypoxia and hypercarbia: (10) Gram-positive bacteremia: (11) Anemia: (12) Pseudoaneurysm of femoral artery following procedure: Plan Reason Critically Ill: 72-year-old male here with a history significant for recent gram-positive cocci bacteremia, respiratory arrest and [place] (discharged on 01/21/23) who was admitted for altered mental status and hypoxemia. Neuro - Encephalopathy -Sedation: Propofol d/c for over 24 hours, has PRN Fentanyl ordered -MRI brain w/o con: no acute abnormalities or acute ischemia -EEG completed: moderate diffuse slowing of the background, no focal abnormalities or potentially epileptogenic discharges. Neurology consulted, appreciate recommendations. Cardiac - Hx of thoracic aortic aneurysm repair, atrial fibrillation, hx of DVT -Pressors discontinued on 01/23/23 -Became more hypertensive yesterday after sedation discontinued, started patient on Metoprolol Tartrate 50mg BID -Echo (01/13/23) mild concentric LVH, normal LV and RV function -Continue heparin drip due to history of afib, prior DVT -Thoracic aortic endovascular stent graft is in place with mild aneurysmal dilation of the ascending thoracic aorta which was considered stable to slightly increased since his prior CT measuring 5.1 cm Respiratory - Hypercarbic respiratory failure -Intubated overnight on 01/23/2023 due to worsening respiratory acidosis -Remains on ventilator at present, continue SBT as indicated. -CT chest w/ con relatively contraindicated due to concern of prior anaphylactic-like reaction. CT chest w/o IV contrast was performed on admission which showed emphysema/secretions in the trachea, mainstem bronchi -Repeat CXR today with slight increase in bibasilar opacities GI - -Initiated tube feeds, discontinued IV fluids as currently at goal rate for tube feeds. -Protonix 40 daily -No bowel movements, continue Senna and added Miralax Renal/Lytes - [place], hx of bilateral renal infarct and hx of renal cell carcinoma status post partial nephrectomy (2014) -Underwent hemodialysis during last admission due to [place] secondary to bilateral renal infarcts and IV contrast -Renal artery stenting performed at [facility] 12/23/22 -Nephrology consulted, appreciate recommendations -Cr improving from 3.88 on admission, 2.49 today with BUN 50 -Replace lytes as needed - -Acosta catheter placed on 01/22/23 -Urine cx growing klebsiella oxytoca -Monitor I's & O's Endo - -TSH within normal limits -Follow ICU hyperglycemic protocols Heme - -History of anemia of chronic disease. Hgb today of 8.1 -Received 1u PRBCs on 01/22/23 -Continue to monitor CBC, transfuse for Hgb <7 ID - -Tmax of 38.5C with temp largely >38 in the past day. WBC 0f 8 today. -Urine cx growing klebsiella oxytoca, sputum cx growing pansensitive serratia marcescens, blood cultures NGTD -Ordered repeat sputum, blood, and urine cultures -ID consulted due to recent bacteremia, recommended de-escalating from Vancomycin to Daptomycin and from Cefepime to Ceftriaxone. -During recent admission, patient had coag-negative staph and enterococcus bacteremia and presumed endovascular infection. -Was discharged with plan to continue IV daptomycin x6 weeks on 01/21 prior to readmission Lines/IV Access - -Right triple-lumen PICC line in place -Acosta catheter in place (01/22/2023) -18-gauge peripheral IV in the left antecubital fossa DVT Prophylaxis - -SCDs, Heparin drip * Updated patient's daughter this morning via phone call. Palliative has planned to hold a family meeting later this week. Encouraged patient's daughter to call with any questions. Thank you for allowing us to be part of this patient's care. Please refer to Dr. York's documentation for any further recommendations. Admission and Anticipated Discharge Date Admission Date: January 22, 2023 Subjective Patient seen and examined at bedside. Patient remains on ventilator, unable to provide ROS/HPI information, is able to follow few commands (i.e. wiggling toes) and opens eyes easily to sound. No family at bedside, called and provided update to daughter. No acute events reported overnight per nursing except increased respiratory secretions. Review of Systems Review of Systems: Unobtainable due to mental status Physical Exam Constitutional: average body habitus and + mechanically ventilated Eyes: PERRL; no conjunctival abnormality ENMT: Ears: no external ear abnormality Nose: no external nose abnormality ET tube in place Respiratory: Auscultation: + diminished lung sounds and + wheezes Tachypnea and increased respiratory efforts intermittently. Cardiovascular: Rate/Rhythm: regular rate and regular rhythm Extremities: no edema Gastrointestinal (Abdomen): Inspection/Auscultation: abdomen not distended Percussion/Palpation: abdomen soft; no guarding Skin: no rashes, warm and dry Neurologic: Responds to voice and noxious stimuli, can follow few one step verbal commands. Psychiatric: Soft mitts in place for patient safety Genitourinary: Acosta catheter in place. Results & Data Results & Data Vital Signs (Past 12 Hours) Vital Signs Temp Pulse Resp BP Pulse Ox O2 Del Method FiO2 01/26/23 06:00 38.4 C H 93 H 20 134/70 96 01/26/23 05:00 38.6 C H 89 20 154/83 H 96 Mechanical Vent 01/26/23 05:00 38.1 C H 97 H 20 154/83 H 93 Mechanical Vent 01/26/23 04:07 87 23 98 35 01/26/23 04:01 37.9 C H 95 H 26 H 166/62 H 87 L Mechanical Vent 01/26/23 04:00 35 01/26/23 03:00 37.9 C H 90 21 138/70 91 Mechanical Vent 01/26/23 02:00 38.1 C H 84 23 136/65 96 Mechanical Vent 01/26/23 01:00 38.2 C H 82 19 138/66 96 Mechanical Vent 01/26/23 00:00 38.3 C H 86 23 145/73 H 93 Mechanical Vent 01/26/23 00:00 35 01/25/23 23:44 82 01/25/23 23:00 38.4 C H 82 20 119/62 96 Mechanical Vent 01/25/23 22:34 81 23 99 35 01/25/23 22:00 38.2 C H 76 21 136/74 96 Mechanical Vent 01/25/23 21:00 38.2 C H 72 19 111/60 97 Mechanical Vent 01/25/23 20:11 38.3 C H 105 H 22 160/74 H Mechanical Vent 01/25/23 20:00 Mechanical Vent 35 01/25/23 20:00 35 01/25/23 19:49 98 H 26 H 99 35 Diagnostic Findings Chest X-Ray 01/26/23 07:00 XR chest 1V portable CLINICAL HISTORY: Respiratory failure. COMPARISON STUDY: Chest CT January 22, 2023. Chest radiograph January 23, 2023. FINDINGS: Tip of endotracheal tube is 3.7 cm above the gerson. Tip of nasogastric tube is at least within the body of the stomach. A right PICC is in place. There is no pneumothorax. No pleural effusion is identified. Endovascular thoracic aortic stent graft is noted. Bibasilar airspace opacities have progressed. IMPRESSION: 1. Satisfactory positioning of lines and tubes. 2. Increase in bibasilar opacities which could reflect pneumonia or aspiration pneumonitis. 3. No pneumothorax. ACT 112: Negative or not required by law. Electronically signed by: Peterson Hart M.D. 01/26/2023 9:06 AM Resident Activity Tracking Resident Involvement: Resident Care Provided Care Provided: Adult [facility] Medicine (8) AMS (altered mental status) Altered mental status type: disorientation Qualified Code(s): R41.0 - Disorientation, unspecified
[2023-01-26] MEDS: ASPIRIN 81 MG CHEW PO SCH (08:12)
[2023-01-26] MEDS: PANTOprazole 40 MG in SYRINGE 0 ML IV SCH (08:12)
[2023-01-26] MEDS: CLOPIDOGREL BISULFATE 75 MG TAB PO SCH (08:13)
[2023-01-26] MEDS: SENNA 8.6 MG TAB PO SCH (08:13)
[2023-01-26] MEDS: METOPROLOL TARTRATE 50 MG TAB PO SCH ×2 (08:13→20:16)
[2023-01-26] MEDS: POLYETHYLENE (MIRALAX) 17 GM PACK PO SCH (08:27)
--- NOTE | 2023-01-26 09:07 | XRay Report ---
XR chest 1V portable CLINICAL HISTORY: Respiratory failure. COMPARISON STUDY: Chest CT January 22, 2023. Chest radiograph January 23, 2023. FINDINGS: Tip of endotracheal tube is 3.7 cm above the gerson. Tip of nasogastric tube is at least wi thin the body of the stomach. A right PICC is in place. There is no pneumothorax. No pleural effusion is identified. Endovascular thoracic aortic stent graft is noted. Bibasilar airspace opacities have progressed. IMPRESSION: 1. Satisfactory positioning of lines and tubes. 2. Increase in bibasilar opacities which could reflect pneumonia or aspiration pneumonitis. 3. No pneumothorax. ACT 112: Negative or not required by law. Electronically signed by: Peterson Hart M.D. 01/26/2023 9:06 AM
[2023-01-26] MEDS: fentaNYL citrate PF 100 MCG/2 ML VIAL IV PRN (11:06)
--- NOTE | 2023-01-26 11:46 | Hospitalist Progress Note ---
Date of Service January 26, 2023 Assessment & Plan (1) Acute respiratory failure with hypoxia: Plan: Acute hypoxic respiratory failure Presents on nonrebreather SPO2 sats in the 70s with increased tachypnea ABG revealed respiratory acidosis, patient intubated and started on broad- spectrum antibiotic after he failed BiPAP - CTchest: No consolidation suggestive of pneumonia. Emphysema. Moderate secretions of the trachea and mainstem bronchi, No leukocytosis, procalcitonin elevated Continue Ceftriaxone and daptomycin per ID -Sputum cultures growing Serratia Patient was recently admitted to this facility with generalized weakness, after patient had a endovascular graft for aortic aneurysm, and other facility, the course was complicated with persistent gram-positive bacteremia, cardiopulmonary arrest, patient discharged to rehab facility after PICC line placed on 6 weeks course of treatment with daptomycin -Still intubated and ventilated, but opens eyes and follows some command -Attempts to liberate from the vent resulted in tachypnea (2) Acute encephalopathy: Plan: Etiology is uncertain, EEG showed disorganized background with slowing but no epileptiform waves MRI did not show any acute pathology Neurologist on consult, (3) Gram-positive bacteremia: Plan: History of gram-positive bacteremia - [employer], S. haemolyticus, E facalis cultures on prior admit. Recurrent [employer] bacteremia 01/12-01/13 vanc/dapto sensitive. Endograft at risk of infectious, but no clear infection durin gadmit Repeat blood cultures pending Discharged on daptomycin started 01/12, patient did receive Zosyn 01/12 and 01/13. Was recommended to complete 6 weeks of daptomycin, and dosing was increased to 10 mg/kg's for Enterococcus with DAYNA of 2. (4) Acute UTI: Plan: urine cultures growing Klebsiella Oxytoca Continue ceftriaxone (5) Atrial fibrillation: Plan: History of A-fib, recent cardiopulmonary arrest DOAC converted to heparin while inpatient and critically ill Admitting EKG normal sinus rhythm without territorial signs of ischemia Following contrast exposure despite premedication at prior hospitalization. Likely 2/2 critical illness, but cannot exclude contrast allergy. Patient is anticoagulated so risk of PE is low, will convert apixaban to heparin while (6) CAROLINA (acute kidney injury): Plan: CAROLINA, transient HD dependence CAROLINA with bilateral renal infarcts and IV contrast administration at last hospitalization Last hemodialysis 01/14/2023, creatinine was stable at around 3.4 since Right IJ was removed 01/18/2023. No further dialysis was anticipated at that time No emergent indication for dialysis on admission - nephrology consulted Anemia Normocytic continue to monitor (7) GERD (gastroesophageal reflux disease): Plan: - PPI (8) Diabetes mellitus, type 2: Plan: ICU hyperglycemia per (9) CAD (coronary artery disease): Plan: - With history of stents Troponin is downtrending from prior, 27.5. Trended. No ischemic findings on EKG, (10) Malnutrition: Plan: continue tube feeds Plan DVT prophylaxis: On heparin Diet: N.p.o. Disposition: ICU CODE STATUS: Full code, family is discussing whether patient would want to convert to DNR/DNI given current circumstance Admission and Anticipated Discharge Date Admission Date: January 22, 2023 Subjective patient seen and examined, intubated, but opens eyes and follows minor instructions Review of Systems Review of Systems: Unable to obtain, intubated and ventilated Physical Exam Physical Exam: The patient is Intubated and ventilated, but opens eyes and follows some command HEENT--PERRL, EOMI, mucous membranes and oropharynx mildly dry Neck--supple. No JVD. No bruits. Thyroid normal, trachea midline, no adenopathy. Heart--normal S1 and S2. No murmurs, rubs or gallops. Lungs--clear bilaterally, no respiratory distress, no accessory muscle use. Abdomen--normal bowel sounds and soft. Mild epigastric and left sided abdominal pain Extremities--no cyanosis or clubbing. No edema. Dermatologic--normal skin turgor, normal color, no abnormal lymph nodes, no rash. Neurologic--unable to fully assess. Rheumatologic--normal range of motion. Psychiatric--unable to obtain Results & Data Results & Data Vital Signs (Past 12 Hours) Vital Signs Temp Pulse Resp BP Pulse Ox O2 Del Method O2 Flow Rate 01/26/23 11:00 185/100 H 01/26/23 11:00 101.1 F H 104 H 38 H 92 Mechanical Vent 35 01/26/23 10:55 184/117 H 01/26/23 10:55 100.9 F H 104 H 41 H 97 Mechanical Vent 35 01/26/23 10:00 165/86 H 01/26/23 10:00 101.3 F H 86 18 97 Mechanical Vent 35 01/26/23 09:51 87 29 H 96 01/26/23 09:00 133/88 01/26/23 09:00 101.3 F H 95 H 19 96 Mechanical Vent 01/26/23 08:00 159/87 H 01/26/23 08:00 101.5 F H 99 H 22 99 Mechanical Vent 01/26/23 08:00 01/26/23 08:00 86 01/26/23 07:55 101 H 25 H 97 01/26/23 07:50 101 H 25 H 95 01/26/23 07:00 138/77 01/26/23 07:00 101.5 F H 93 H 27 H 95 Mechanical Vent 01/26/23 06:00 101.1 F H 93 H 20 134/70 96 01/26/23 05:00 101.5 F H 89 20 154/83 H 96 Mechanical Vent 01/26/23 05:00 100.6 F H 97 H 20 154/83 H 93 Mechanical Vent 01/26/23 04:07 87 23 98 01/26/23 04:01 100.2 F H 95 H 26 H 166/62 H 87 L Mechanical Vent 01/26/23 04:00 01/26/23 03:00 100.2 F H 90 21 138/70 91 Mechanical Vent 01/26/23 02:00 100.6 F H 84 23 136/65 96 Mechanical Vent 01/26/23 01:00 100.8 F H 82 19 138/66 96 Mechanical Vent 01/26/23 00:00 100.9 F H 86 23 145/73 H 93 Mechanical Vent 01/26/23 00:00 01/25/23 23:44 82 FiO2 01/26/23 11:00 01/26/23 11:00 01/26/23 10:55 01/26/23 10:55 01/26/23 10:00 01/26/23 10:00 01/26/23 09:51 35 01/26/23 09:00 01/26/23 09:00 35 01/26/23 08:00 01/26/23 08:00 35 01/26/23 08:00 35 01/26/23 08:00 01/26/23 07:55 30 01/26/23 07:50 40 01/26/23 07:00 01/26/23 07:00 35 01/26/23 06:00 01/26/23 05:00 01/26/23 05:00 01/26/23 04:07 35 01/26/23 04:01 01/26/23 04:00 35 01/26/23 03:00 01/26/23 02:00 01/26/23 01:00 01/26/23 00:00 01/26/23 00:00 35 01/25/23 23:44 PG Care Time/CCT Total # of Minutes Spent Total Time Spent with Patient: Total time spent is greater than 50% in coordination of care (as documented) at patient's floor/unit and/or counseling patient: Coding Level of Care Code 54584 SUB INP/OBS CARE 235MIN Diagnoses Acute respiratory failure with hypoxia J96.01 Acute encephalopathy G93.40 Gram-positive bacteremia R78.81 Acute UTI N39.0 Atrial fibrillation I48.91 CAROLINA (acute kidney injury) N17.9 GERD (gastroesophageal reflux disease) K21.9 Type 2 diabetes mellitus with other circulatory complication, without long-term current use of insulin E11.59 Diabetes mellitus terminal press operator insulin use: without terminal press operator use Diabetes mellitus complication status: with circulatory complication Diabetes mellitus complication detail: with other circulatory complications Coronary artery disease involving [place] coronary artery of [place] heart without angina pectoris I25.10 Coronary Disease-Associated Artery/Lesion type: [place] artery [place] vs. transplanted heart: [place] heart Associated angina: without angina Malnutrition E46 Time Spent (min) 35 (8) Diabetes mellitus, type 2 Diabetes mellitus chcf insulin use: without chcf use Diabetes mellitus complication status: with circulatory complication Diabetes mellitus complication detail: with other circulatory complications Qualified Code(s): E11.59 - Type 2 diabetes mellitus with other circulatory complications (9) CAD (coronary artery disease) Coronary Disease-Associated Artery/Lesion type: [place] artery [place] vs. transplanted heart: [place] heart Associated angina: without angina Qualified Code(s): I25.10 - Atherosclerotic heart disease of [place] coronary artery without angina pectoris
[2023-01-26] MEDS: ACETAMINOPHEN SUSP 325 MG/10.15 ML UDC PO PRN ×2 (11:52→19:29)
--- NOTE | 2023-01-26 12:19 | Nephrology Progress Note ---
Date of Service January 26, 2023 Assessment & Plan (1) Acute renal disease: (2) Complicated UTI (urinary tract infection): (3) Acute respiratory failure with hypoxia: (4) AMS (altered mental status): (5) Anemia: (6) Generalized weakness: Plan 72-year old gentleman with recent multiple prolonged hospitalization for aortic dissection repair, acute kidney injury requiring dialysis, bacteremia and UTI, presented to the hospital with respiratory failure and altered mental status requiring intubation. Required dialysis for acute kidney injury during hospitalization in December however has been off of dialysis since 01/14/2023. No sign of volume overload. Creatinine staying relatively stable around 3.5 with acceptable electrolytes. Decent urine output and acceptable volume status. Renal function continues to improve, creatinine down to 2.5 this morning with acceptable electrolytes. Decent urine output. - Continue to monitor renal function, electrolyte, and output. --Dose medications for eGFR less than 30, avoid all nephrotoxic medications. Will follow. Admission and Anticipated Discharge Date Admission Date: January 22, 2023 Subjective Yaron was seen and evaluated in ICU this morning. He is still intubated however responds to painful stimuli. Has been off of pressor, BP fine. Has decent urine output. Renal function stable, creatinine continues to improve, down to 2.5 this morning electrolyte acceptable. Review of Systems Review of Systems: Detailed review of system was not possible as patient was intubated and sedated. Physical Exam Constitutional: WD/WN, vitals as above + ill appearing and + mechanically ventilated Neck: normal visual inspection Respiratory: no respiratory distress Auscultation: lungs clear to auscultation bilaterally Cardiovascular: RRR, no murmur, no edema Gastrointestinal (Abdomen): Inspection/Auscultation: abdomen normal to inspection Percussion/Palpation: abdomen soft; abdomen nontender Musculoskeletal: Extremities: extremities normal to inspection Skin: no rashes, warm and dry Results & Data Vital Signs (Past 12 Hours) Vital Signs Temp Pulse Resp BP Pulse Ox O2 Del Method O2 Flow Rate 01/26/23 11:00 185/100 H 01/26/23 11:00 38.4 C H 104 H 38 H 92 Mechanical Vent 35 01/26/23 10:55 184/117 H 01/26/23 10:55 38.3 C H 104 H 41 H 97 Mechanical Vent 35 01/26/23 10:00 165/86 H 01/26/23 10:00 38.5 C H 86 18 97 Mechanical Vent 35 01/26/23 09:51 87 29 H 96 01/26/23 09:00 133/88 01/26/23 09:00 38.5 C H 95 H 19 96 Mechanical Vent 01/26/23 08:00 159/87 H 01/26/23 08:00 38.6 C H 99 H 22 99 Mechanical Vent 01/26/23 08:00 01/26/23 08:00 86 01/26/23 07:55 101 H 25 H 97 01/26/23 07:50 101 H 25 H 95 01/26/23 07:00 138/77 01/26/23 07:00 38.6 C H 93 H 27 H 95 Mechanical Vent 01/26/23 06:00 38.4 C H 93 H 20 134/70 96 01/26/23 05:00 38.6 C H 89 20 154/83 H 96 Mechanical Vent 01/26/23 05:00 38.1 C H 97 H 20 154/83 H 93 Mechanical Vent 01/26/23 04:07 87 23 98 01/26/23 04:01 37.9 C H 95 H 26 H 166/62 H 87 L Mechanical Vent 01/26/23 04:00 01/26/23 03:00 37.9 C H 90 21 138/70 91 Mechanical Vent 01/26/23 02:00 38.1 C H 84 23 136/65 96 Mechanical Vent 01/26/23 01:00 38.2 C H 82 19 138/66 96 Mechanical Vent FiO2 01/26/23 11:00 01/26/23 11:00 01/26/23 10:55 01/26/23 10:55 01/26/23 10:00 01/26/23 10:00 01/26/23 09:51 35 01/26/23 09:00 01/26/23 09:00 35 01/26/23 08:00 01/26/23 08:00 35 01/26/23 08:00 35 01/26/23 08:00 01/26/23 07:55 30 01/26/23 07:50 40 01/26/23 07:00 01/26/23 07:00 35 01/26/23 06:00 01/26/23 05:00 01/26/23 05:00 01/26/23 04:07 35 01/26/23 04:01 01/26/23 04:00 35 01/26/23 03:00 01/26/23 02:00 01/26/23 01:00 PG Care Time/CCT Total # of Minutes Spent Total Time Spent with Patient: Total time spent is greater than 50% in coordination of care (as documented) at patient's floor/unit and/or counseling patient: Coding Level of Care Code 68882 SUB INP/OBS CARE 235MIN Diagnoses Acute renal disease N28.9 Complicated UTI (urinary tract infection) N39.0 Acute respiratory failure with hypoxia J96.01 AMS (altered mental status) R41.0 Altered mental status type: disorientation Anemia D64.9 Generalized weakness R53.1 (4) AMS (altered mental status) Altered mental status type: disorientation Qualified Code(s): R41.0 - Disorientation, unspecified
[2023-01-26] MEDS: FLUTICASONE/VILANTEROL 100/25MCG 14 PUFFS/INHALER INH SCH (12:46)
--- NOTE | 2023-01-26 16:34 | Infectious Disease Progress Nt ---
Date of Service January 26, 2023 Assessment & Plan (1) Endotracheally intubated: (2) Acute encephalopathy: (3) Acute respiratory failure with hypoxia: (4) Acute renal disease: Plan 72 yo male with history of of MD s/p PCI (2000), prostate cancer s/p prostatectomy, HTN, DM2, renal cell carcinoma s/p partial L nephrectomy (2014), LLE DVT (2020), prior history of AAA s/p EVAR (2008), admitted to [facility] 12/18- 01/08 with type B aortic dissection with aortic thrombus and concern for renal infarcts. He underwent thoracic endovascular aortic repair (TEVAR) on 12/23/22 with [place] endograft. He required renal stenting, kidney function worsened and was started on HD via RIJ permacath. More recently he was admitted to [facility] on 01/10 for placement. His course c/b cardiac arrest on 01/12 after contrast and scans requiring intubation 01/12 blood cultures grew CoNS in 2/4 bottles. Repeat blood cultures later that day post-cardiac arrest again grew CoNS in 4/4 bottles. BCID PCR panel with Staph epi, mec A detected. Blood cultures from 01/13 again grew CoNS in 2/4 bottles, as well as Staph haemolyticus in 1/4 bottles, and E faecalis in 2/4 bottles.. Pt's HD catheter was removed 01/18. Blood cultures cleared on 01/15. Catheter tip culture finalized as NG. PICC inserted on 01/20. On 01/19, he wa febrile with increased work of breathing. CT chest on 01/19 with cardiomegaly with mild intralobular septal thickening which may represent a component of pulm edema, emphysema with bronchitis, trace L pleural effusion, endograft with unchanged fusiform aneurysmal dilation of aorta. He was dced 01/21 to [facility]. He returns with hypoxic resp failure on . During that admission he was followed by ID with plan to complete 6 wks of Daptomycin for CONS and enterococcus bacteremia and presumed endovascular infection. In Ed, he required NRB with sats in 70s and tachypnea. He is currently intubated in ICU and unable to provide a history. He has no leukocytosis. Cr .3.88, procal 1.75 Ct chest without consolidation to suggest pneumonia. Moderate secretions within the trachea and mainstem bronchi and emphysema noted. Thoracic aortic endovascular stent graft in place. Aneurysmal dilatation of the descending thoracic aorta is stable. CTAB showed no significant change in appearance of the abdomen and pelvis. CT head without acute changes. He is currently on IV vancomycin and Zosyn. UC growing >100 K Klebsiella Oxy and sputum cx growing GNR. ID consulted for recent CONS bacteremia. # Acute hypoxic respiratory failure # Serratia marcescens on sputum cx # Klebsiella oxytoca in UC # fevers started 01/24 # Recent Staph epi bacteremia # Recent E faecalis bacteremia # Recent thoracic aortic aneurysm repair with graft # R HD catheter: removed 01/18 # right great toe screw in place Current Micro UC 01/22 > 100k Klebsiella oxytoca - R to cefazolin BC 01/22 NGTD Sputum cx 01/23 Serratia marcescens- ZAMBRANO Sensitive BC 01/26 P Sputum cx 01/26 P Prior Micro: 01/18 HD catheter tip cx: NG 01/17 BCx x2: NGTD 01/15 BCx x2: NG 01/13 BCx x2: Coag neg Staph not lug in 2/4 bottles (R oxacillin, clinda, TMP/SMX. S dapto, tetra, vanc), Staph haemolyticus in 1/4 bottles (R oxacillin, TMP/SMX, clinda. S dapto, tetra, vanc), E faecalis in 2/4 bottles (S amp, vanc). BCID PCR panel + Staph epi, E faecalis 01/12 BCx x2: Coag neg Staph not lugdunensis in 4/4 bottles. BCID PCR panel + Staph epi 01/12 BCx x2: Coag neg Staph not lugdunensis in 2/4 bottles (R oxacillin. S clinda, tetra, TMP/SMX) 01/11 UCx: >3 organisms Abx: Daptomycin 01/12-01/22 , 01/25 Zosyn 01/22 vanco 01/22- 01/25 cefepime 01/22, 01/24-01/25 Ceftriaxone 01/25-ongoing Coag neg Staph in multiple blood cultures is not a contaminant, lisa in conjun ction with his presenting symptoms on last admission, recent endovascular procedure with graft. Several possible sources of infection; 1) endovascular graft, 2) central lines-HD catheter, femoral line, 3) History of R great toe metal/screw (no evidence of infection here), 4) R AC fossa tenderness and redness/PIV infiltration (less likely, RUE US showed R basilic vein thrombosis, no evidence of soft tissue abscess), 5) acute sinusitis on imaging (less likely). Interestingly, pt also with E faecalis on 01/13 blood culture. TTE on 01/15 did not demonstrate vegetations. He was on daptomycin 10 mg/kg for Enterococcus with DAYNA 2 and Cons with plan to treat for 6 wks for endovascular infection, given multiple blood cultures with Staph epi from 01/12-01/13, and E faecalis in 2/4 bottles on 01/13, and he is high risk for graft infection with recent endograft placement. Daptomycin was held this admission and Vancomycin started pending Rule out of a gram positive pulmonary infection. Respiratory cx positive for only S marcescens. UC + for Klebsiella. Vanco dced and dapto restarted. Zosyn switched to Ceftriaxone. His course has been c/b fevers since 01/24. ct head with Chronic right maxillary, sphenoid and ethmoid sinusitis. No acute sinusitis. cr with increased infiltrates- ? pna vs pneumonitis. Family meeting pending for tomorrow. Recommendations: Continue Dapto 10 mg/kg IV Q 48 hours ( crcl 27) ,as no evidence of GPC in lung. Plan for 6 weeks as previously recommended Continue ceftriaxone 2g iv daily for Klebsiella in urine and Serratia in sputum cx. Follow up repeat BC and sputum cx from 01/26 ID will continue to follow. Hazel Carreon MD, MPH Infectious Disease [facility], ID Division Call [phone] with questions. Admission and Anticipated Discharge Date Admission Date: January 22, 2023 Subjective This patient recommendation is based on a telemedicine consult request which was completed asynchronously through chart review and information provided by the primary physician. The patient was not seen or examined today. The evaluation is consultative in nature and all patient care and treatment decisions can either be accepted or rejected by the patient's primary hospital-based treating physician using their own independent medical judgment for their patient. Time Spent Reviewing Chart: 21 - 30 minutes persistently febrile . repeat BC, sputum cx ordered Results & Data Vital Signs (Past 12 Hours) Vital Signs Temp Pulse Resp BP Pulse Ox O2 Del Method O2 Flow Rate 01/26/23 16:00 121 H 01/26/23 16:00 01/26/23 15:45 120 H 27 H 91 01/26/23 11:00 185/100 H 01/26/23 11:00 38.4 C H 104 H 38 H 92 Mechanical Vent 35 01/26/23 10:55 184/117 H 01/26/23 10:55 38.3 C H 104 H 41 H 97 Mechanical Vent 35 01/26/23 10:00 165/86 H 01/26/23 10:00 38.5 C H 86 18 97 Mechanical Vent 35 01/26/23 09:51 87 29 H 96 01/26/23 09:30 Mechanical Vent 01/26/23 09:00 133/88 01/26/23 09:00 38.5 C H 95 H 19 96 Mechanical Vent 01/26/23 08:00 159/87 H 01/26/23 08:00 38.6 C H 99 H 22 99 Mechanical Vent 01/26/23 08:00 01/26/23 08:00 86 01/26/23 07:55 101 H 25 H 97 01/26/23 07:50 101 H 25 H 95 01/26/23 07:00 138/77 01/26/23 07:00 38.6 C H 93 H 27 H 95 Mechanical Vent 01/26/23 06:00 38.4 C H 93 H 20 134/70 96 01/26/23 05:00 38.6 C H 89 20 154/83 H 96 Mechanical Vent 01/26/23 05:00 38.1 C H 97 H 20 154/83 H 93 Mechanical Vent FiO2 01/26/23 16:00 01/26/23 16:00 35 01/26/23 15:45 35 01/26/23 11:00 01/26/23 11:00 01/26/23 10:55 01/26/23 10:55 01/26/23 10:00 01/26/23 10:00 01/26/23 09:51 35 01/26/23 09:30 35 01/26/23 09:00 01/26/23 09:00 35 01/26/23 08:00 01/26/23 08:00 35 01/26/23 08:00 35 01/26/23 08:00 01/26/23 07:55 30 01/26/23 07:50 40 01/26/23 07:00 01/26/23 07:00 35 01/26/23 06:00 01/26/23 05:00 01/26/23 05:00 Laboratory Results Short CBC 01/26/23 Range/Units 04:38 WBC 8.10 (4.8-10.8) K/ul Hgb 8.1 L (14.0-18.0) g/dl Hct 25.8 L (42.0-52.0) % Plt Count 269 (130-400) K/uL BMP 01/26/23 04:38 Sodium 141 Potassium 3.7 Chloride 109 H Carbon Dioxide 24 BUN 50 H Creatinine 2.49 H Glucose 130 H Calcium 8.3 L Cardiac Enzymes 01/26/23 Range/Units 04:38 Total Creatine Kinase 83 (30-223) U/L Liver Function 01/26/23 Range/Units 04:38 Total Bilirubin 0.4 (0.2-1.0) mg/dl AST 26 (13-39) U/L ALT 36 (7-52) U/L Alkaline Phosphatase 147 H (34-104) U/L Albumin 2.3 L (3.4-5.0) gm/dl Diagnostic Findings Microbiology 01/26/23 15:39 Sputum,Vent Suction Gram Stain - Final 01/23/23 Unknown Sputum,Vent Suction Gram Stain - Final 01/23/23 Unknown Sputum,Vent Suction Sputum Culture - Final Serratia marcescens 01/22/23 14:11 Blood Aerobic Blood Culture - Preliminary No growth in Aerobic bottle after 48 hours. 01/22/23 14:11 Blood Anaerobic Blood Culture - Preliminary No growth in Anaerobic bottle after 48 hours. 01/22/23 13:20 Blood Aerobic Blood Culture - Preliminary No growth in Aerobic bottle after 48 hours. 01/22/23 13:20 Blood Anaerobic Blood Culture - Preliminary No growth in Anaerobic bottle after 48 hours. 01/22/23 15:15 Urine,Straight Cath Urine Culture - Final Klebsiella oxytoca Brain MRI 01/25/23 00:05 Exam(s): MRI HEAD Without Contrast EXAM: MR Head Without Intravenous Contrast CLINICAL HISTORY: Reason for exam: altered mental status, rule out stroke. TECHNIQUE: Magnetic resonance images of the head/brain without intravenous contrast in multiple planes. COMPARISON: Comparison made to prior head CT from January 22, 2023. FINDINGS: Brain: Moderate nonspecific white matter changes. The flow voids at the base of the brain are intact. No mass. No hemorrhage. No acute infarct. Ventricles: Evidence of ventriculomegaly. Bones/joints: Unremarkable. Sinuses: Chronic right maxillary, sphenoid and ethmoid sinusitis. No acute sinusitis. Mastoid air cells: There is a tiny amount of fluid in the right mastoid air cells. No mastoid effusion. Orbits: Unremarkable as visualized. IMPRESSION: No evidence of acute intracranial pathology. Electronically signed by: Lucy Lion MD 01/25/23 02:21 AM Chest X-Ray 01/26/23 07:00 XR chest 1V portable CLINICAL HISTORY: Respiratory failure. COMPARISON STUDY: Chest CT January 22, 2023. Chest radiograph January 23, 2023. FINDINGS: Tip of endotracheal tube is 3.7 cm above the gerson. Tip of nasogastric tube is at least within the body of the stomach. A right PICC is in place. There is no pneumothorax. No pleural effusion is identified. Endovascular thoracic aortic stent graft is noted. Bibasilar airspace opacities have progressed. IMPRESSION: 1. Satisfactory positioning of lines and tubes. 2. Increase in bibasilar opacities which could reflect pneumonia or aspiration pneumonitis. 3. No pneumothorax. ACT 112: Negative or not required by law. Electronically signed by: Peterson Hart M.D. 01/26/2023 9:06 AM
[2023-01-26] MEDS: cefTRIAXone SODIUM 2,000 MG in DEXTROSE 5 % MINI-B 50 ML IV SCH (17:35)
[2023-01-27] MEDS: INSULIN ASPART PER UNIT CHARGE SC SCH ×4 (01:17→19:27)
[2023-01-27 04:48] LABS: Basophils # (auto) 0.03 K/uL (0.00-0.20); Basophils % (auto) 0.3 %; Eosinophils # (auto) 0.19 K/uL (0.00-0.50); Eosinophils % (auto) 1.8 %; Hematocrit (blood only) 27.2 % (42.0-52.0); Hemoglobin 8.4 g/dl (14.0-18.0); Immature Granulocytes # (auto) 0.07 K/uL (0.01-0.20); Immature Granulocytes % (auto) 0.7 %; Lymphocytes # (auto) 1.57 K/uL (1.20-3.40); Lymphocytes % (auto) 14.8 %; Mean Corpuscular Hemoglobin 28.4 pg (25.0-34.0); Mean Corpuscular Hgb Conc 30.9 g/dL (32.0-36.0); Mean Corpuscular Volume 91.9 fL (80.0-100.0); Mean Platelet Volume 10.5 fL (9.4-12.4); Monocytes % (auto) 4.7 %; Neutrophils # (auto) 8.23 K/uL (1.40-6.50); Neutrophils % (auto) 77.7 %; Platelet Count 260 K/uL (130-400); RDW Coefficient of Variation 15.1 % (11.5-14.5); RDW Standard Deviation 49.7 fL (36.4-46.3); Red Blood Count 2.96 M/uL (4.70-6.10); White Blood Count 10.59 K/ul (4.8-10.8)
[2023-01-27 05:01] LABS: Albumin Globulin Ratio 0.6 (0.9-2); Albumin Level 2.4 gm/dl (3.4-5.0); BUN Creatinine Ratio 20.6 (10-20); Bilirubin,Total 0.3 mg/dl (0.2-1.0); Calcium 8.6 mg/dl (8.6-10.3); Creatinine Clr Calc Pharmacy 28.3 ml/min; Est GFR (African American) 28.9 ml/min; Est GFR (Non-African American) 24.9 ml/min; Globulin 4.1 gm/dl (2.5-4.0); Magnesium 2.1 mg/dl (1.7-2.4); Phosphorus 3.9 mg/dl (2.5-4.9); Potassium 3.9 mmol/L (3.5-5.1); Total Protein 6.5 gm/dl (6.0-8.3)
[2023-01-27] MEDS: HEPARIN SODIUM/DEXTROSE 25,000 UNITS/500 ML BAG IV SCH (05:15)
[2023-01-27] MEDS: NOVASOURCE RENAL 2.0 CAL 1000ML BAG OG SCH (05:15)
[2023-01-27 05:47] LABS: Partial Thromboplastin Ratio 1.5
[2023-01-27 06:09] LABS: Partial Thromboplastin Time 41.7 Seconds (21.0-31.0)
--- NOTE | 2023-01-27 08:33 | Critical Care Progress Note ---
<Statement entered by Savannah Mathews MD - 01/27/23 14:37> Agree with above. persistently febrile since 01/25. CXR yesterday showed new infiltrates. pollard cultured yesterday NGTD. Clinically seems to have taken a step back today. Failed pressure support on setting he had done well on the past couple of days PS 12/PEEP 5. I am reaching out to ID for their input. I am co ncerned for a developing infection. Check procalcitonin. He is currently on ceftriaxone and daptomycin. Discussed with RN and in inter-discplinary round. I have personally spent 45 minutes of critical care time in the direct management of this patient. This is a life/limb threatening event. This includes time spent evaluating patient, direct bedside care, chart review, placing order s, interpretation of diagnostic studies, discussion with consultants, patient, and family members, as well as other required patient management activities. This time is exclusive of all separately billable procedures, and teaching time and separate from and in addition to any other critical care service time. Date of Service January 27, 2023 Assessment & Plan (1) Acute renal disease: (2) Endotracheally intubated: (3) Complicated UTI (urinary tract infection): (4) Uremia: (5) Acute encephalopathy: (6) Acute respiratory failure with hypoxia: (7) Acute UTI: (8) AMS (altered mental status): (9) Acute respiratory failure with hypoxia and hypercarbia: (10) Gram-positive bacteremia: (11) Anemia: (12) Pseudoaneurysm of femoral artery following procedure: Plan Reason Critically Ill: 72-year-old male here with a history significant for recent gram-positive cocci bacteremia, respiratory arrest and CAROLINA (discharged on 01/21/23) who was admitted for altered mental status and hypoxemia. Neuro - Encephalopathy -Sedation: Propofol off since 01/25, has PRN Fentanyl ordered -MRI brain w/o con: no acute abnormalities or acute ischemia -EEG completed: moderate diffuse slowing of the background, no focal abnormalities or potentially epileptogenic discharges. Neurology consulted, appreciate recommendations. Cardiac - Hx of thoracic aortic aneurysm repair, atrial fibrillation, hx of DVT -Pressors discontinued on 01/23/23 -Became more hypertensive after sedation discontinued, started patient on Metoprolol Tartrate 50mg BID. Currently normotensive -Echo (01/13/23) mild concentric LVH, normal LV and RV function -Continue heparin drip due to history of afib, prior DVT -Thoracic aortic endovascular stent graft is in place with mild aneurysmal dilation of the ascending thoracic aorta which was considered stable to slightly increased since his prior CT measuring 5.1 cm Respiratory - Hypercarbic respiratory failure -Intubated overnight on 01/23/2023 due to worsening respiratory acidosis -Remains on ventilator at present, considering extubation attempt later today vs. tomorrow -Will speak with patient's family to clarify desire for re-intubation if needed -CT chest w/ con relatively contraindicated due to concern of prior anaphylactic-like reaction. CT chest w/o IV contrast was performed on admission which showed emphysema/secretions in the trachea, mainstem bronchi -Repeat CXR on 01/26 with slight increase in bibasilar opacities GI - -Initiated tube feeds, discontinued IV fluids as currently at goal rate for tube feeds. -Protonix 40 daily -Has started to have loose bowel movement. Stopped Senna, continue daily Miralax Renal/Lytes - CAROLINA, hx of bilateral renal infarct and hx of renal cell carcinoma status post partial nephrectomy (2014) -Underwent hemodialysis during last admission due to CAROLINA secondary to bilateral renal infarcts and IV contrast -Renal artery stenting performed at [facility] 12/23/22 -Nephrology consulted, appreciate recommendations -Cr improving from 3.88 on admission, 2.47 today -Replace lytes as needed - -Acosta catheter placed on 01/22/23 -Urine cx growing klebsiella oxytoca -Monitor I's & O's, has had adequate urine output Endo - -TSH within normal limits -Follow ICU hyperglycemic protocols Heme - -History of anemia of chronic disease. Hgb today of 8.4 -Received 1u PRBCs on 01/22/23 -Continue to monitor CBC, transfuse for Hgb <7 ID - -Tmax of 38.8C with temp largely >38 in the past day. WBC 0f 10 today. -Urine cx growing klebsiella oxytoca, sputum cx growing pansensitive serratia marcescens, blood cultures NGTD -Repeat sputum, blood, and urine cultures pending -ID consulted due to recent bacteremia, recommended de-escalating from Vancomycin to Daptomycin and from Cefepime to Ceftriaxone. -During recent admission, patient had coag-negative staph and enterococcus bacteremia and presumed endovascular infection. -Was discharged with plan to continue IV daptomycin x6 weeks on 01/21 prior to readmission Lines/IV Access - -Right triple-lumen PICC line in place -Acosta catheter in place (01/22/2023) -18-gauge peripheral IV in the left antecubital fossa DVT Prophylaxis - -SCDs, Heparin drip * Palliative meeting rescheduled from today to tomorrow (01/27) per daughter's preference Thank you for allowing us to be part of this patient's care. Please refer to Dr. York's documentation for any further recommendations. Admission and Anticipated Discharge Date Admission Date: January 22, 2023 Subjective Patient seen and examined at bedside. No acute events reported overnight. Nursing notes that patient has had frequent looser stools. Review of Systems Review of Systems: Unobtainable due to mental status Physical Exam Constitutional: average body habitus and + mechanically ventilated Eyes: + anicteric sclerae; no conjunctival abn ormality ENMT: Ears: no external ear abnormality Nose: no external nose abnormality ET tube in place. Moist mucous membranes. Respiratory: Auscultation: + diminished lung sounds and + wheezes Cardiovascular: Rate/Rhythm: regular rate and regular rhythm Extremities: no edema Gastrointestinal (Abdomen): Inspection/Auscultation: abdomen not distended Percussion/Palpation: abdomen soft; no guarding Skin: no rashes, warm and dry Neurologic: Responds to verbal stimuli, able to follow few one step commands. Genitourinary: Acosta catheter in place. Results & Data Results & Data Vital Signs (Past 12 Hours) Vital Signs Temp Pulse Resp BP Pulse Ox O2 Del Method FiO2 01/27/23 08:15 111 H 25 H 98 30 01/27/23 08:14 Mechanical Vent 30 01/27/23 08:00 30 01/27/23 07:44 107 H 21 100 30 01/27/23 07:29 110 H 01/27/23 06:00 38.2 C H 102 H 23 96 01/27/23 06:00 94/60 L 01/27/23 05:01 37.8 C H 104 H 28 H 100 01/27/23 05:01 125/76 01/27/23 05:00 37.8 C H 105 H 20 100 01/27/23 04:01 124/72 01/27/23 04:01 38.1 C H 98 H 26 H 93 01/27/23 04:00 38.1 C H 108 H 27 H 97 01/27/23 04:00 30 01/27/23 03:00 122/68 01/27/23 03:00 38.2 C H 109 H 26 H 97 01/27/23 02:52 103 H 23 99 30 01/27/23 02:00 38.3 C H 106 H 26 H 100 01/27/23 02:00 134/68 01/27/23 01:00 38.2 C H 102 H 22 97 01/27/23 01:00 116/60 01/27/23 00:00 104/72 01/27/23 00:00 38.1 C H 99 H 20 99 01/27/23 00:00 100 H 01/27/23 00:00 35 01/26/23 23:00 117/73 01/26/23 23:00 38.1 C H 97 H 26 H 98 01/26/23 22:35 101 H 25 H 98 35 01/26/23 22:01 122/66 01/26/23 22:01 38.2 C H 95 H 26 H 99 01/26/23 22:00 38.2 C H 94 H 27 H 99 01/26/23 21:00 38.5 C H 93 H 24 96 Resident Activity Tracking Resident Involvement: Resident Care Provided Care Provided: Adult Hospital Medicine (8) AMS (altered mental status) Altered mental status type: disorientation Qualified Code(s): R41.0 - Disorientation, unspecified
[2023-01-27] MEDS: ASPIRIN 81 MG CHEW PO SCH (08:35)
[2023-01-27] MEDS: PANTOprazole 40 MG in SYRINGE 0 ML IV SCH (08:35)
[2023-01-27] MEDS: CLOPIDOGREL BISULFATE 75 MG TAB PO SCH (08:37)
[2023-01-27] MEDS: POLYETHYLENE (MIRALAX) 17 GM PACK PO SCH (08:40)
--- NOTE | 2023-01-27 08:46 | Infectious Disease Progress Nt ---
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 He underwent thoracic endovascular aortic repair (TEVAR) on 12/23/22 with [place] endograft. He required renal stenting, kidney function worsened and was started on HD via RIJ permacath. More recently he was admitted to [facility] on 01/10 for placement. His course c/b cardiac arrest on 01/12 after contrast and scans requiring intubation 01/12 blood cultures grew CoNS in 2/4 bottles. Repeat blood cultures later that day post-cardiac arrest again grew CoNS in 4/4 bottles. BCID PCR panel with Staph epi, mec A detected. Blood cultures from 01/13 again grew CoNS in 2/4 bottles, as well as Staph haemolyticus in 1/4 bottles, and E faecalis in 2/4 bottles.. Pt's HD catheter was removed 01/18. Blood cultures cleared on 01/15. Catheter tip culture finalized as NG. PICC inserted on 01/20. On 01/19, he wa febrile with increased work of breathing. CT chest on 01/19 with cardiomegaly with mild intralobular septal thickening which may represent a component of pulm edema, emphysema with bronchitis, trace L pleural effusion, endograft with unchanged fusiform aneurysmal dilation of aorta. He was dced 01/21 to [facility]. He returns with hypoxic resp failure on . During that admission he was followed by ID with plan to complete 6 wks of Daptomycin for CONS and enterococcus bacteremia and presumed endovascular infection. In Ed, he required NRB with sats in 70s and tachypnea. He is currently intubated in ICU and unable to provide a history. He has no leukocytosis. Cr .3.88, procal 1.75 Ct chest without consolidation to suggest pneumonia. Moderate secretions within the trachea and mainstem bronchi and emphysema noted. Thoracic aortic endovascular stent graft in place. Aneurysmal dilatation of the descending thoracic aorta is stable. CTAB showed no significant change in appearance of the abdomen and pelvis. CT head without acute changes. He is currently on IV vancomycin and Zosyn. UC growing >100 K Klebsiella Oxy and sputum cx growing GNR. ID consulted for recent CONS bacteremia. # Acute hypoxic respiratory failure # Serratia marcescens on sputum cx # Klebsiella oxytoca in UC # fevers started 01/24 # Recent Staph epi bacteremia # Recent E faecalis bacteremia # Recent thoracic aortic aneurysm repair with graft # R HD catheter: removed 01/18 # right great toe screw in place Current Micro UC 01/22 > 100k Klebsiella oxytoca - R to cefazolin BC 01/22 NGTD Sputum cx 01/23 Serratia marcescens- ZAMBRANO Sensitive BC 01/26 P Sputum cx 01/26 P Prior Micro: 01/18 HD catheter tip cx: NG 01/17 BCx x2: NGTD 01/15 BCx x2: NG 01/13 BCx x2: Coag neg Staph not lug in 2/4 bottles (R oxacillin, clinda, TMP/SMX. S dapto, tetra, vanc), Staph haemolyticus in 1/4 bottles (R oxacillin, TMP/SMX, clinda. S dapto, tetra, vanc), E faecalis in 2/4 bottles (S amp, vanc). BCID PCR panel + Staph epi, E faecalis 01/12 BCx x2: Coag neg Staph not lugdunensis in 4/4 bottles. BCID PCR panel + Staph epi 01/12 BCx x2: Coag neg Staph not lugdunensis in 2/4 bottles (R oxacillin. S clinda, tetra, TMP/SMX) 01/11 UCx: >3 organisms Abx: Daptomycin 01/12-01/22 , 01/25 Zosyn 01/22 vanco 01/22- 01/25 cefepime 01/22, 01/24-01/25 Ceftriaxone 01/25-ongoing Coag neg Staph in multiple blood cultures is not a contaminant, lisa in conjun ction with his presenting symptoms on last admission, recent endovascular procedure with graft. Several possible sources of infection; 1) endovascular graft, 2) central lines-HD catheter, femoral line, 3) History of R great toe metal/screw (no evidence of infection here), 4) R AC fossa tenderness and redness/PIV infiltration (less likely, RUE US showed R basilic vein thrombosis, no evidence of soft tissue abscess), 5) acute sinusitis on imaging (less likely). Interestingly, pt also with E faecalis on 01/13 blood culture. TTE on 01/15 did not demonstrate vegetations. He was on daptomycin 10 mg/kg for Enterococcus with DAYNA 2 and Cons with plan to treat for 6 wks for endovascular infection, given multiple blood cultures with Staph epi from 01/12-01/13, and E faecalis in 2/4 bottles on 01/13, and he is high risk for graft infection with recent endograft placement. Daptomycin was held this admission and Vancomycin started pending Rule out of a gram positive pulmonary infection. Respiratory cx positive for only Serratia marcescens. UC + for Klebsiella. Vanco discontinued 01/25 and dapto restarted. Zosyn switched to Ceftriaxone. His course c/b fevers since 01/24. ct head with Chronic right maxillary, sphenoid and ethmoid sinusitis. No acute sinusitis. CXR with increased infiltrates- ? pna vs pneumonitis. Fevers - unclear source; ? infection (currently covered for known organisms that have grown) , ? Drug fever, ? dvts/clots, ? central fever Recommendations: In setting of persistent fevers , will broaden from Ceftriaxone to Meropenem 1 g iv q12 ( cr cl 28) pending BC and sputum cx Change Dapto to Vanco per pharm protocol pending sputum cx Check UE dopplers Follow up repeat BC and sputum cx from 01/26 DW team, Dr Zaragoza ID will continue to follow. Hazel Carreon MD, MPH Infectious Disease [facility], ID Division Call [phone] with questions. Admission and Anticipated Discharge Date Admission Date: January 22, 2023 Subjective Subsequent visit was provided via telemedicine using two-way real-time interactive telecommunication between the patient and the telemedicine provider. For the duration of the visit, the provider was performing the assessment from a different facility than the patient. This includesuse of bluetooth stethoscope forauscultationperformed by the telepresenter that the telemedicine provider can hear if described in the physical exam. Director Patient Accounting contact information: Please call [facility] Call Center . (Phone Number For Physician Use Only) After establishing a telemedicine visit, patient was: Patient was verified with two unique identifiers Time Spent with Patient: Subsequent => 25 min persistently febrile . repeat BC, sputum cx ordered and results pending. On e xam has BL UE edema. Intubated, sedated, open eyes slightly. Brain MRI unremarkable TM 38.5 Physical Exam Physical Exam: gen- intubated, sedated Neck supple Abd- soft ext- BL UE edema. Minimal LE edema, R picc - c/d/i - jerry in place Results & Data Vital Signs (Past 12 Hours) Vital Signs Temp Pulse Resp BP Pulse Ox O2 Del Method FiO2 01/27/23 08:15 111 H 25 H 98 30 01/27/23 08:14 Mechanical Vent 30 01/27/23 08:00 30 01/27/23 07:44 107 H 21 100 30 01/27/23 07:29 110 H 01/27/23 06:00 38.2 C H 102 H 23 96 01/27/23 06:00 94/60 L 01/27/23 05:01 37.8 C H 104 H 28 H 100 01/27/23 05:01 125/76 01/27/23 05:00 37.8 C H 105 H 20 100 01/27/23 04:01 124/72 01/27/23 04:01 38.1 C H 98 H 26 H 93 01/27/23 04:00 38.1 C H 108 H 27 H 97 01/27/23 04:00 30 01/27/23 03:00 122/68 01/27/23 03:00 38.2 C H 109 H 26 H 97 01/27/23 02:52 103 H 23 99 30 01/27/23 02:00 38.3 C H 106 H 26 H 100 01/27/23 02:00 134/68 01/27/23 01:00 38.2 C H 102 H 22 97 01/27/23 01:00 116/60 01/27/23 00:00 104/72 01/27/23 00:00 38.1 C H 99 H 20 99 01/27/23 00:00 100 H 01/27/23 00:00 35 01/26/23 23:00 117/73 01/26/23 23:00 38.1 C H 97 H 26 H 98 01/26/23 22:35 101 H 25 H 98 35 01/26/23 22:01 122/66 01/26/23 22:01 38.2 C H 95 H 26 H 99 01/26/23 22:00 38.2 C H 94 H 27 H 99 01/26/23 21:00 38.5 C H 93 H 24 96 Laboratory Results Short CBC 01/27/23 Range/Units 04:10 WBC 10.59 (4.8-10.8) K/ul Hgb 8.4 L (14.0-18.0) g/dl Hct 27.2 L (42.0-52.0) % Plt Count 260 (130-400) K/uL BMP 01/27/23 04:10 Sodium 141 Potassium 3.9 Chloride 109 H Carbon Dioxide 24 BUN 51 H Creatinine 2.47 H Glucose 131 H Calcium 8.6 Liver Function 01/27/23 Range/Units 04:10 Total Bilirubin 0.3 (0.2-1.0) mg/dl AST 21 (13-39) U/L ALT 30 (7-52) U/L Alkaline Phosphatase 151 H (34-104) U/L Albumin 2.4 L (3.4-5.0) gm/dl Diagnostic Findings Microbiology 01/26/23 15:39 Sputum,Vent Suction Gram Stain - Final 01/23/23 Unknown Sputum,Vent Suction Gram Stain - Final 01/23/23 Unknown Sputum,Vent Suction Sputum Culture - Final Serratia marcescens 01/22/23 14:11 Blood Aerobic Blood Culture - Preliminary No growth in Aerobic bottle after 48 hours. 01/22/23 14:11 Blood Anaerobic Blood Culture - Preliminary No growth in Anaerobic bottle after 48 hours. 01/22/23 13:20 Blood Aerobic Blood Culture - Preliminary No growth in Aerobic bottle after 48 hours. 01/22/23 13:20 Blood Anaerobic Blood Culture - Preliminary No growth in Anaerobic bottle after 48 hours. 01/22/23 15:15 Urine,Straight Cath Urine Culture - Final Klebsiella oxytoca Brain MRI 01/25/23 00:05 Exam(s): MRI HEAD Without Contrast EXAM: MR Head Without Intravenous Contrast CLINICAL HISTORY: Reason for exam: altered mental status, rule out stroke. TECHNIQUE: Magnetic resonance images of the head/brain without intravenous contrast in multiple planes. COMPARISON: Comparison made to prior head CT from January 22, 2023. FINDINGS: Brain: Moderate nonspecific white matter changes. The flow voids at the base of the brain are intact. No mass. No hemorrhage. No acute infarct. Ventricles: Evidence of ventriculomegaly. Bones/joints: Unremarkable. Sinuses: Chronic right maxillary, sphenoid and ethmoid sinusitis. No acute sinusitis. Mastoid air cells: There is a tiny amount of fluid in the right mastoid air cells. No mastoid effusion. Orbits: Unremarkable as visualized. IMPRESSION: No evidence of acute intracranial pathology. Electronically signed by: Lcuy Lion MD 01/25/23 02:21 AM Chest X-Ray 01/26/23 07:00 XR chest 1V portable CLINICAL HISTORY: Respiratory failure. COMPARISON STUDY: Chest CT January 22, 2023. Chest radiograph January 23, 2023. FINDINGS: Tip of endotracheal tube is 3.7 cm above the gerson. Tip of nasogastric tube is at least within the body of the stomach. A right PICC is in place. There is no pneumothorax. No pleural effusion is identified. Endovascular thoracic aortic stent graft is noted. Bibasilar airspace opacities have progressed. IMPRESSION: 1. Satisfactory positioning of lines and tubes. 2. Increase in bibasilar opacities which could reflect pneumonia or aspiration pneumonitis. 3. No pneumothorax. ACT 112: Negative or not required by law. Electronically signed by: Peterson Hart M.D. 01/26/2023 9:06 AM Medications Administered Home Medications Medication Instructions Recorded Confirmed Last Taken aspirin 81 mg tablet,delayed 81 mg PO QAM 01/18/19 01/22/23 01/22/23 release (Nora Low Dose Aspirin) amlodipine 5 mg tablet 5 mg PO QAM 03/29/22 01/22/23 01/22/23 metoprolol tartrate 100 mg tablet 100 mg PO BID 03/29/22 01/22/23 01/22/23 09:00 albuterol sulfate 90 mcg/actuation 2 puff inhalation Q6H PRN Wheezing 01/10/23 01/22/23 Unknown aerosol inhaler clopidogrel 75 mg tablet (Plavix) 75 mg PO QAM 01/10/23 01/22/23 01/22/23 fluticasone furoate 100 1 inh inhalation QAM 01/10/23 01/22/23 01/22/23 mcg-vilanterol 25 mcg/dose inhalation powder (Breo Ellipta) oxycodone 5 mg tablet 5 mg PO Q4H PRN Pain 01/10/23 01/22/23 Unknown apixaban 5 mg tablet (Eliquis) 5 mg PO BID #50 tabs 01/21/23 01/22/23 01/22/23 09:00 daptomycin 350 mg/50 mL in 0.9 % 850 mg IV Q48H 01/22/23 01/22/23 Unknown sodium chloride intravenous piggyback insulin regular human 100 unit/mL 1 sliding scale dose subcut ACHS 01/22/23 01/22/23 Unknown injection solution (Humulin R PRN BLOOD SUGAR CONTROL Regular U-100 Insulin) naloxone 4 mg/actuation nasal 4 mg intranasal DIRECTED PRN 01/22/23 01/22/23 Unknown spray (Narcan) Opioid Overdose Active Medications Generic Name Dose Route Start Last Admin Trade Name Freq PRN Reason Stop Dose Admin Acetaminophen 650 mg 01/25/23 17:38 01/26/23 19:29 Acetaminophen Susp 325 Mg/10.15 Ml Udc PO 02/24/23 17:37 650 mg Q6H PRN Administration Pain or Fever Aspirin 81 mg 01/24/23 09:00 01/27/23 08:35 Aspirin 81 Mg Chew PO 02/23/23 08:59 81 mg DAILY GABY Administration Clopidogrel Bisulfate 75 mg 01/24/23 09:00 01/27/23 08:37 Clopidogrel Bisulfate 75 Mg Tab PO 02/23/23 08:59 75 mg QAM GABY Administration Enteral Nutritional Formula 1,000 ml 01/23/23 12:30 01/27/23 05:15 Novasource Renal 2.0 Judah 1000ml Bag OG 02/22/23 12:29 1,000 ml UD GABY Administration Protocol Fentanyl Citrate 50 mcg 01/25/23 11:28 01/26/23 11:06 Fentanyl Citrate Pf 100 Mcg/2 Ml Vial IV 02/08/23 11:27 50 mcg Q2H PRN Administration Moderate Pain (4,5,6) on NRS Fluticasone/Vilanterol 1 puffs 01/23/23 09:00 01/26/23 12:46 Fluticasone/Vilanterol 100/25mcg 14 Puffs/Inhaler INH 02/22/23 08:59 Not Given QAM GABY Norepinephrine Bitartrate 4 mg in 250 mls @ 0 mls/hr 01/22/23 22:00 01/25/23 09:51 Levophed/D5w IV 02/21/23 21:59 Infused .Q0M GABY Titration Protocol 0 MCG/KG/MIN Heparin Sodium/Dextrose 25,000 units in 500 mls @ 21 mls/hr 01/23/23 09:45 01/27/23 05:15 Heparin Sodium/Dextrose IV 02/22/23 09:44 1,050 units/hr .[id number] GABY 21 mls/hr Administration Protocol 1,050 UNITS/HR Pantoprazole Sodium 40 mg/ 10 mls @ 5 mls/min 01/26/23 09:00 01/27/23 08:35 Syringe IV 02/25/23 08:59 5 mls/min DAILY GABY Administration Ceftriaxone Sodium 2,000 mg/ 50 mls @ 100 mls/hr 01/25/23 18:00 01/26/23 18:46 Dextrose IV 02/01/23 17:59 Infused Q24H GABY Infusion Protocol Daptomycin 750 mg/ Syringe 15 mls @ 7.5 mls/min 01/25/23 18:00 01/25/23 18:08 IV 02/08/23 17:59 7.5 mls/min Q48H GABY Administration Protocol Insulin Aspart 0 units 01/24/23 18:00 01/27/23 05:59 Insulin Aspart Per Unit Charge SC 02/23/23 17:59 4 units Q6 GABY Administration Metoprolol Tartrate 50 mg 01/25/23 11:30 01/26/23 20:16 Metoprolol Tartrate 50 Mg Tab PO 02/24/23 11:29 50 mg BID GABY Administration Polyethylene Glycol 17 gm 01/26/23 09:00 01/27/23 08:40 Polyethylene (Miralax) 17 Gm Pack PO 02/25/23 08:59 17 gm DAILY GABY Administration
[2023-01-27] MEDS: ACETAMINOPHEN SUSP 325 MG/10.15 ML UDC PO PRN (08:55)
[2023-01-27] MEDS: METOPROLOL TARTRATE 50 MG TAB PO SCH ×2 (08:58→22:00)
[2023-01-27] MEDS: FLUTICASONE/VILANTEROL 100/25MCG 14 PUFFS/INHALER INH SCH (09:57)
--- NOTE | 2023-01-27 10:36 | Nephrology Progress Note ---
Date of Service January 27, 2023 Assessment & Plan (1) Acute renal disease: (2) Complicated UTI (urinary tract infection): (3) Acute respiratory failure with hypoxia: (4) AMS (altered mental status): (5) Anemia: Plan 72-year old gentleman with recent multiple prolonged hospitalization for aortic dissection repair, acute kidney injury requiring dialysis, bacteremia and UTI, presented to the hospital with respiratory failure and altered mental status requiring intubation. Required dialysis for acute kidney injury during hospitalization in December however has been off of dialysis since 01/14/2023. No sign of volume overload. Creatinine staying relatively stable around 3.5 with acceptable electrolytes. Decent urine output and acceptable volume status. Renal function continues to improve, creatinine stable at 2.5, acceptable electrolytes. Decent urine output. - Continue to monitor renal function, electrolyte, and output. --Dose medications for eGFR less than 30, avoid all nephrotoxic medications. Will sign off. Admission and Anticipated Discharge Date Admission Date: January 22, 2023 Laura Marrufo was seen and evaluated in ICU this morning. He is still intubated however responds to painful stimuli. BP low. Has decent urine output. Renal function stable, creatinine 2.5, electrolyte acceptable. Review of Systems Review of Systems: Detailed review of system was not possible as patient was intubated and sedated. Physical Exam Constitutional: WD/WN, vitals as above + ill appearing and + mechanically ventilated Neck: normal visual inspection Respiratory: Auscultation: lungs clear to auscultation bilaterally Cardiovascular: RRR, no murmur, no edema Gastrointestinal (Abdomen): Percussion/Palpation: abdomen soft; abdomen nontender Musculoskeletal: Extremities: extremities normal to inspection Skin: no rashes, warm and dry Results & Data Vital Signs (Past 12 Hours) Vital Signs Temp Pulse Resp BP Pulse Ox O2 Del Method FiO2 01/27/23 10:29 88 33 H 96 30 01/27/23 08:15 111 H 25 H 98 30 01/27/23 08:14 Mechanical Vent 30 01/27/23 08:00 30 01/27/23 07:44 107 H 21 100 30 01/27/23 07:29 110 H 01/27/23 06:00 38.2 C H 102 H 23 96 01/27/23 06:00 94/60 L 01/27/23 05:01 37.8 C H 104 H 28 H 100 01/27/23 05:01 125/76 01/27/23 05:00 37.8 C H 105 H 20 100 01/27/23 04:01 124/72 01/27/23 04:01 38.1 C H 98 H 26 H 93 01/27/23 04:00 38.1 C H 108 H 27 H 97 01/27/23 04:00 30 01/27/23 03:00 122/68 01/27/23 03:00 38.2 C H 109 H 26 H 97 01/27/23 02:52 103 H 23 99 30 01/27/23 02:00 38.3 C H 106 H 26 H 100 01/27/23 02:00 134/68 01/27/23 01:00 38.2 C H 102 H 22 97 01/27/23 01:00 116/60 01/27/23 00:00 104/72 01/27/23 00:00 38.1 C H 99 H 20 99 01/27/23 00:00 100 H 01/27/23 00:00 35 01/26/23 23:00 117/73 01/26/23 23:00 38.1 C H 97 H 26 H 98 01/26/23 22:35 101 H 25 H 98 35 PG Care Time/CCT Total # of Minutes Spent Total Time Spent with Patient: Total time spent is greater than 50% in coordination of care (as documented) at patient's floor/unit and/or counseling patient: Coding Level of Care Code 60467 SUB INP/OBS CARE 2/35MIN Diagnoses Acute renal disease N28.9 Complicated UTI (urinary tract infection) N39.0 Acute respiratory failure with hypoxia J96.01 AMS (altered mental status) R41.0 Altered mental status type: disorientation Anemia D64.9 (4) AMS (altered mental status) Altered mental status type: disorientation Qualified Code(s): R41.0 - Disorientation, unspecified
--- NOTE | 2023-01-27 12:04 | Hospitalist Progress Note ---
Date of Service January 27, 2023 Assessment & Plan (1) Acute respiratory failure with hypoxia: Plan: Acute hypoxic respiratory failure Presents on nonrebreather SPO2 sats in the 70s with increased tachypnea ABG revealed respiratory acidosis, patient intubated and started on broad- spectrum antibiotic after he failed BiPAP - CTchest: No consolidation suggestive of pneumonia. Emphysema. Moderate secretions of the trachea and mainstem bronchi, No leukocytosis, procalcitonin elevated Continue Ceftriaxone and daptomycin per ID -Sputum cultures growing Serratia Patient was recently admitted to this facility with generalized weakness, after patient had a endovascular graft for aortic aneurysm, and other facility, the course was complicated with persistent gram-positive bacteremia, cardiopulmonary arrest, patient discharged to rehab facility after PICC line placed on 6 weeks course of treatment with daptomycin -Still intubated and ventilated, but opens eyes and follows some command -Attempts to liberate from the vent resulted in tachypnea -Per occupational health physiotherapist, will re attempt extubation today -Discuss with family regarding reintubation if this attempt fails -Family meeting with palliative tomorrow 01/28 (2) Acute encephalopathy: Plan: Etiology is uncertain, EEG showed disorganized background with slowing but no epileptiform waves MRI did not show any acute pathology Neurologist on consult, (3) Gram-positive bacteremia: Plan: History of gram-positive bacteremia - [employer], S. haemolyticus, E facalis cultures on prior admit. Recurrent [employer] bacteremia 01/12-01/13 vanc/dapto sensitive. Endograft at risk of infectious, but no clear infection during admit Repeat blood cultures pending Discharged on daptomycin started 01/12, patient did receive Zosyn 01/12 and 01/13. - Was recommended to complete 6 weeks of daptomycin, and dosing was increased to 10 mg/kg's for Enterococcus with DAYNA of 2. -Continue daptomycin for a total of 6 weeks (4) Acute UTI: Plan: urine cultures growing Klebsiella Oxytoca Continue ceftriaxone (5) Atrial fibrillation: Plan: History of A-fib, recent cardiopulmonary arrest DOAC converted to heparin while inpatient and critically ill Admitting EKG normal sinus rhythm without territorial signs of ischemia Following contrast exposure despite premedication at prior hospitalization. Likely 2/2 critical illness, but cannot exclude contrast allergy. Patient is anticoagulated so risk of PE is low, will convert apixaban to heparin while (6) CAROLINA (acute kidney injury): Plan: CAROLINA, transient HD dependence CAROLINA with bilateral renal infarcts and IV contrast administration at last hospitalization Last hemodialysis 01/14/2023, creatinine was stable at around 3.4 since Right IJ was removed 01/18/2023. No further dialysis was anticipated at that time No emergent indication for dialysis on admission - nephrology consulted Anemia Normocytic continue to monitor (7) GERD (gastroesophageal reflux disease): Plan: - PPI (8) Diabetes mellitus, type 2: Plan: ICU hyperglycemia per (9) CAD (coronary artery disease): Plan: - With history of stents Troponin is downtrending from prior, 27.5. Trended. No ischemic findings on EKG, (10) Malnutrition: Plan: continue tube feeds Plan DVT prophylaxis: On heparin Diet: N.p.o. Disposition: ICU CODE STATUS: Full code, family is discussing whether patient would want to convert to DNR/DNI given current circumstance Admission and Anticipated Discharge Date Admission Date: January 22, 2023 Subjective patient seen and examined, still intubated, but opens his eyes and follow some command Review of Systems Review of Systems: Unable to obtain, intubated and ventilated Physical Exam Physical Exam: The patient is Intubated and ventilated, but opens eyes and follows some command HEENT--PERRL, EOMI, mucous membranes and oropharynx mildly dry Neck--supple. No JVD. No bruits. Thyroid normal, trachea midline, no adenopathy. Heart--normal S1 and S2. No murmurs, rubs or gallops. Lungs--clear bilaterally, no respiratory distress, no accessory muscle use. Abdomen--normal bowel sounds and soft. Mild epigastric and left sided abdominal pain Extremities--no cyanosis or clubbing. No edema. Dermatologic--normal skin turgor, normal color, no abnormal lymph nodes, no rash. Neurologic--unable to fully assess. Rheumatologic--normal range of motion. Psychiatric--unable to obtain Results & Data Results & Data Vital Signs (Past 12 Hours) Vital Signs Temp Pulse Resp BP Pulse Ox O2 Del Method FiO2 01/27/23 10:29 88 33 H 96 30 01/27/23 08:15 111 H 25 H 98 30 01/27/23 08:14 Mechanical Vent 30 01/27/23 08:00 30 01/27/23 07:44 107 H 21 100 30 01/27/23 07:29 110 H 01/27/23 06:00 100.8 F H 102 H 23 96 01/27/23 06:00 94/60 L 01/27/23 05:01 100.0 F H 104 H 28 H 100 01/27/23 05:01 125/76 01/27/23 05:00 100.0 F H 105 H 20 100 01/27/23 04:01 124/72 01/27/23 04:01 100.6 F H 98 H 26 H 93 01/27/23 04:00 100.6 F H 108 H 27 H 97 01/27/23 04:00 30 01/27/23 03:00 122/68 01/27/23 03:00 100.8 F H 109 H 26 H 97 01/27/23 02:52 103 H 23 99 30 01/27/23 02:00 100.9 F H 106 H 26 H 100 01/27/23 02:00 134/68 01/27/23 01:00 100.8 F H 102 H 22 97 01/27/23 01:00 116/60 PG Care Time/CCT Total # of Minutes Spent Total Time Spent with Patient: Total time spent is greater than 50% in coordination of care (as documented) at patient's floor/unit and/or counseling patient: Coding Level of Care Code 57623 SUB INP/OBS CARE 235MIN Diagnoses Acute respiratory failure with hypoxia J96.01 Acute encephalopathy G93.40 Gram-positive bacteremia R78.81 Acute UTI N39.0 Atrial fibrillation I48.91 CAROLINA (acute kidney injury) N17.9 GERD (gastroesophageal reflux disease) K21.9 Type 2 diabetes mellitus with other circulatory complication, without long-term current use of insulin E11.59 Diabetes mellitus assisted insulin use: without assisted use Diabetes mellitus complication status: with circulatory complication Diabetes mellitus complication detail: with other circulatory complications Coronary artery disease involving [place] coronary artery of [place] heart without angina pectoris I25.10 Coronary Disease-Associated Artery/Lesion type: red [place] artery [place] vs. transplanted heart: red [place] heart Associated angina: without angina Malnutrition E46 Time Spent (min) 35 (8) Diabetes mellitus, type 2 Diabetes mellitus assisted insulin use: without assisted use Diabetes mellitus complication status: with circulatory complication Diabetes mellitus complication detail: with other circulatory complications Qualified Code(s): E11.59 - Type 2 diabetes mellitus with other circulatory complications (9) CAD (coronary artery disease) Coronary Disease-Associated Artery/Lesion type: [place] artery [place] vs. transplanted heart: [place] heart Associated angina: without angina Qualified Code(s): I25.10 - Atherosclerotic heart disease of [place] coronary artery without angina pectoris
[2023-01-27] MEDS ORDERED: VANCOMYCIN HCL 2,000 MG in SODIUM CHLORIDE 0.9% 500 ML IV STA (15:02)
[2023-01-27] MEDS ORDERED: VANCOMYCIN CONSULT ACTIVE PRN (15:03)
[2023-01-27] MEDS: fentaNYL citrate PF 100 MCG/2 ML VIAL IV PRN ×2 (16:21→21:26)
[2023-01-27] MEDS: MEROPENEM 500 MG in SYRINGE 0 ML IV SCH (16:21)
[2023-01-27] MEDS ORDERED: ACETAMINOPHEN 1,000 MG/100 ML VIAL IV STA (16:34)
[2023-01-27] MEDS ORDERED: PROPOFOL IV EMULSION 10 MG/ML 100 ML VIAL IV ONE (21:38)
[2023-01-27] MEDS ORDERED: PROPOFOL BOLUS FROM BAG IV PRN (21:38)
[2023-01-27] MEDS ORDERED: STAT IV Infusion **Titration per Protocol STA (21:38)
[2023-01-27] MEDS: propofoL 1,000 MG/100 ML VIAL IV SCH (21:39)
[2023-01-28] MEDS: INSULIN ASPART PER UNIT CHARGE SC SCH ×5 (00:47→23:57)
[2023-01-28] MEDS: MEROPENEM 500 MG in SYRINGE 0 ML IV SCH ×4 (00:53→23:24)
[2023-01-28 04:09] LABS: iSTAT Allen Test Pass; iSTAT Art Bld Gas pCO2 Correct 38 mmHg (35-46); iSTAT Art Bld Gas pH Corrected 7.398 (7.35-7.45); iSTAT Arterial Blood Gas HCO3 23 meg/L (19-24); iSTAT Arterial Blood Gas pCO2 38 mmHg (35-46); iSTAT Arterial Blood Gas pO2 66 mmHg (80-95); iSTAT Arterial Blood Gas pO2 C 68; iSTAT Carbon Dioxide 25 mmol/L (24-31); iSTAT FiO2 30 %; iSTAT Hematocrit 20 % (42-52); iSTAT Hemoglobin 6.8 g/dl (14.0-18.0); iSTAT Potassium 3.5 mmol/L (3.3-5.0); iSTAT Site R Radial; iSTAT Sodium 141 mmol/L (135-144)
[2023-01-28 04:20] LABS: Basophils # (auto) 0.02 K/uL (0.00-0.20); Basophils % (auto) 0.3 %; Eosinophils # (auto) 0.27 K/uL (0.00-0.50); Eosinophils % (auto) 3.4 %; Hematocrit (blood only) 23.2 % (42.0-52.0); Hemoglobin 7.3 g/dl (14.0-18.0); Immature Granulocytes # (auto) 0.08 K/uL (0.01-0.20); Lymphocytes # (auto) 1.59 K/uL (1.20-3.40); Lymphocytes % (auto) 20.3 %; Mean Corpuscular Hemoglobin 28.7 pg (25.0-34.0); Mean Corpuscular Hgb Conc 31.5 g/dL (32.0-36.0); Mean Corpuscular Volume 91.3 fL (80.0-100.0); Mean Platelet Volume 10.6 fL (9.4-12.4); Monocytes # (auto) 0.42 K/uL (0.11-0.59); Monocytes % (auto) 5.4 %; Neutrophils # (auto) 5.45 K/uL (1.40-6.50); Neutrophils % (auto) 69.6 %; Platelet Count 211 K/uL (130-400); RDW Coefficient of Variation 15.2 % (11.5-14.5); RDW Standard Deviation 50.3 fL (36.4-46.3); Red Blood Count 2.54 M/uL (4.70-6.10); White Blood Count 7.83 K/ul (4.8-10.8)
[2023-01-28 04:38] LABS: Albumin Globulin Ratio 0.6 (0.9-2); Albumin Level 2.2 gm/dl (3.4-5.0); BUN Creatinine Ratio 22.4 (10-20); Bilirubin,Total 0.3 mg/dl (0.2-1.0); Calcium 8.1 mg/dl (8.6-10.3); Creatinine Clr Calc Pharmacy 26.6 ml/min; Est GFR (African American) 26.8 ml/min; Est GFR (Non-African American) 23.1 ml/min; Globulin 3.7 gm/dl (2.5-4.0); Magnesium 2.1 mg/dl (1.7-2.4); Phosphorus 4.4 mg/dl (2.5-4.9); Potassium 3.5 mmol/L (3.5-5.1); Total Protein 5.9 gm/dl (6.0-8.3)
[2023-01-28 04:48] LABS: Partial Thromboplastin Ratio 1.4; Partial Thromboplastin Time 39.3 Seconds (21.0-31.0)
[2023-01-28] MEDS: HEPARIN SODIUM/DEXTROSE 25,000 UNITS/500 ML BAG IV SCH ×3 (05:14→14:55)
[2023-01-28 05:25] LABS: RBC Morphology Unremarkable
[2023-01-28] MEDS: propofoL 1,000 MG/100 ML VIAL IV SCH (05:49)
--- NOTE | 2023-01-28 07:26 | Ultrasound Report ---
US venous doppler LE BI CLINICAL HISTORY: r/o dvt TECHNIQUE: Bilateral lower extremity real-time compression venous ultrasound with Color Doppler imagi ng. Utilizing real-time ultrasonic imaging multiple real time high-resolution ultrasonic images with compression and noncompression maneuvers of the deep venous system in addition to color doppler imagi ng were performed from the common femoral vein through the proximal calf veins. COMPARISON: None available at the time of this dictation. FINDINGS/IMPRESSION: Currently there is normal compressibility of the deep venous system from the common femoral vein thro ugh the proximal calf veins. No superficial venous thrombosis is identified. ACT 112: Negative or not required by law. Electronically signed by: Farzad Lao M.D. 01/28/2023 7:24 AM
--- NOTE | 2023-01-28 08:12 | Critical Care Progress Note ---
Date of Service January 28, 2023 Assessment & Plan (1) Acute renal disease: (2) Endotracheally intubated: (3) Complicated UTI (urinary tract infection): (4) Uremia: (5) Acute encephalopathy: (6) Acute respiratory failure with hypoxia: (7) Acute UTI: (8) AMS (altered mental status): (9) Acute respiratory failure with hypoxia and hypercarbia: (10) Gram-positive bacteremia: (11) Anemia: (12) Pseudoaneurysm of femoral artery following procedure: Plan Reason Critically Ill: 72-year-old male here with a history significant for recent gram-positive cocci bacteremia, respiratory arrest and ACROLINA (discharged on 01/21/23) who was admitted for altered mental status and hypoxemia. Neuro - Encephalopathy -Sedation: Propofol off since 01/25, has PRN Fentanyl ordered -MRI brain w/o con: no acute abnormalities or acute ischemia -EEG completed: moderate diffuse slowing of the background, no focal abnormalities or potentially epileptogenic discharges. Neurology consulted, appreciate recommendations. Cardiac - Hx of thoracic aortic aneurysm repair, atrial fibrillation, hx of DVT -Pressors discontinued on 01/23/23 -Became more hypertensive after sedation discontinued, started patient on Metoprolol Tartrate 50mg BID. Currently normotensive -Echo (01/13/23) mild concentric LVH, normal LV and RV function -Continue heparin drip due to history of afib, prior DVT -Thoracic aortic endovascular stent graft is in place with mild aneurysmal dilation of the ascending thoracic aorta which was considered stable to slightly increased since his prior CT measuring 5.1 cm Respiratory - Hypercarbic respiratory failure -Intubated overnight on 01/23/2023 due to worsening respiratory acidosis -Remains on ventilator at present, will continue to reassess appropriateness of extubation -CT chest w/ con relatively contraindicated due to concern of prior anaphylactic-like reaction. CT chest w/o IV contrast was performed on admission which showed emphysema/secretions in the trachea, mainstem bronchi GI - -Initiated tube feeds, discontinued IV fluids as currently at goal rate for tube feeds. -Protonix 40 daily -Bowel regimen with daily Miralax. Renal/Lytes - CAROLINA, hx of bilateral renal infarct and hx of renal cell carcinoma status post partial nephrectomy (2014) -Underwent hemodialysis during last admission due to CAROLINA secondary to bilateral renal infarcts and IV contrast -Renal artery stenting performed at [facility] 12/23/22 -Nephrology consulted, appreciate recommendations -Cr improving from 3.88 on admission, seems to be around baseline Cr of ~2.5 -Replace lytes as needed - -Acosta catheter placed on 01/22/23 -Urine cx grew klebsiella oxytoca, repeat urine cx without growth -Urine output has decreased over the past 24 hours, ordered 1x dose of IV Lasix -Continue to monitor I's & O's Endo - -TSH within normal limits -Follow ICU hyperglycemic protocols Heme - -History of anemia of chronic disease. Hgb today of 7.3 today, will recheck H&H at noon -Received 1u PRBCs on 01/22/23 -Continue to monitor CBC, transfuse for Hgb <7 ID - -ID consulted due to recent bacteremia, recommended broadening antibiotic coverage due to ongoing elevated temp >38C -Escalated from daptomycin to vancomycin and from ceftriaxone to meropenem -ID had concerns with some lower extremity edema, ordered UE dopplers -Today temp has been 37.4-37.7C, WBC 7.83 -Initial urine cx grew klebsiella oxytoca, sputum cx growing pansensitive serratia marcescens, blood cultures with no growth -Repeat sputum, blood, and urine cultures pending -During recent admission, patient had coag-negative staph and enterococcus bacteremia and presumed endovascular infection. -Was discharged with plan to continue IV daptomycin x6 weeks on 01/21 prior to readmission Lines/IV Access - -Right triple-lumen PICC line in place -Acosta catheter in place (01/22/2023) -18-gauge peripheral IV in the left antecubital fossa DVT Prophylaxis - -SCDs, Heparin drip * Family meeting with palliative care scheduled for today Thank you for allowing us to be part of this patient's care. Please refer to Dr. York's documentation for any further recommendations. Admission and Anticipated Discharge Date Admission Date: January 22, 2023 Subjective Patient seen and examined at bedside. Propofol held ~1hr prior to encounter, patient is able to follow basic commands (lifting hands, wiggling toes). Unable to collect meaningful HPI/ROS due to endotracheal tube. Review of Systems Review of Systems: Unobtainable due to endotracheal tube Physical Exam Constitutional: average body habitus and + mechanically ventilated Eyes: + anicteric sclerae; no conjunctival abn ormality ENMT: Ears: no external ear abnormality Nose: no external nose abnormality Respiratory: Auscultation: + diminished lung sounds and + wheezes Cardiovascular: Rate/Rhythm: regular rate and regular rhythm Extremities: no edema Gastrointestinal (Abdomen): Inspection/Auscultation: abdomen not distended Percussion/Palpation: abdomen soft; no guarding +bowel sounds present Skin: no rashes, warm and dry Psychiatric: Follows some one step commands and is awake. No Genitourinary: Acosta catheter in place Results & Data Results & Data Vital Signs (Past 12 Hours) Vital Signs Temp Pulse Resp BP Pulse Ox O2 Del Method FiO2 01/28/23 05:00 37.7 C H 82 20 100 01/28/23 05:00 110/62 01/28/23 04:00 30 01/28/23 04:00 124/59 L 01/28/23 04:00 37.5 C 86 19 100 01/28/23 03:00 37.6 C H 78 19 100 01/28/23 03:00 101/50 L 01/28/23 02:42 77 19 99 30 01/28/23 02:00 37.6 C H 79 19 100 01/28/23 02:00 110/55 L 01/28/23 01:00 99/50 L 01/28/23 01:00 37.6 C H 75 18 100 Mechanical Vent 01/28/23 01:00 Mechanical Vent 01/28/23 00:00 99/51 L 01/28/23 00:00 37.4 C 80 18 100 Mechanical Vent 01/28/23 00:00 35 01/27/23 23:00 104/48 L 01/27/23 23:00 37.3 C 84 19 99 Mechanical Vent 01/27/23 22:18 79 18 95 35 01/27/23 22:00 92/50 L 01/27/23 22:00 37.4 C 79 18 94 Mechanical Vent 01/27/23 21:00 113/53 L 01/27/23 21:00 37.4 C 87 19 97 Mechanical Vent Resident Activity Tracking Resident Involvement: Resident Care Provided Care Provided: Adult [facility] Medicine (8) AMS (altered mental status) Altered mental status type: disorientation Qualified Code(s): R41.0 - Disorientation, unspecified
[2023-01-28] MEDS ORDERED: FUROSEMIDE 40 MG/4 ML VIAL IV ONE (08:17)
[2023-01-28] MEDS: ASPIRIN 81 MG CHEW PO SCH (09:07)
[2023-01-28] MEDS: POTASSIUM CHLORIDE / WTR 10 MEQ/100 ML PLCT IV SCH ×2 (09:07→10:04)
[2023-01-28] MEDS: CLOPIDOGREL BISULFATE 75 MG TAB PO SCH (09:07)
[2023-01-28] MEDS: METOPROLOL TARTRATE 50 MG TAB PO SCH (09:08)
[2023-01-28] MEDS: PANTOprazole 40 MG in SYRINGE 0 ML IV SCH (09:09)
[2023-01-28] MEDS: POLYETHYLENE (MIRALAX) 17 GM PACK PO SCH (09:09)
--- NOTE | 2023-01-28 09:55 | XRay Report ---
XR chest 1V portable CLINICAL HISTORY: pneumonia TECHNIQUE: Single frontal radiograph of the chest was obtained. Comparison: Comparison is made to chest radiograph 01/26/2023 FINDINGS: Lines and tubes are stable. Aortic graft is seen. The lungs are clear. No evidence of pleural effusio n or pneumothorax. IMPRESSION: Interval improvement in previously noted bibasilar opacities. No radiographic evidence of pneumonia. ACT 112: Negative or not required by law. Electronically signed by: Farzad Lao M.D. 01/28/2023 9:54 AM
--- NOTE | 2023-01-28 11:21 | Palliative Care Progress Note ---
Date of Service January 28, 2023 Assessment & Plan (1) Discussion about advance care planning held with family member: Plan: I conducted a Zoom family meeting with the son and dtr for Dwayne/Yaron Acosta from 1030 - 1115am, using secure [facility] Zoom portal. I was alone in my office/door locked and closed. They were in the office of their orthodoxy, no one else was present. Both children are clear that they would very much like to see if he can tell medical team if he wants to be reintubated. They are very overwhelmed at thought of having to make decision for him though they also say that if he does well or not is up to God. They would be supportive if he wanted DNR/DNI or full code, but they also note he would not want to be dependent on others for care or be dependent on machines/oxygen etc. He was a very vibrant, active man who lived on his own before all this happened. We spoke about his adv emphysema/smoking related, how this can affect residential success for vent weaning etc and i laid groundwork that even if things went perfect from this point forward, his new "best" baseline will be lower than prior and he will have some quality systems specialist debility. I gave them some talking maps to use in conversation with pt this weekend. I also suggested they ask him/decide as a family "what would better look like for you?" and use that as guide to shape future decisions as well. I offered a follow up meeting early next week if they want - they will let us know. (2) Severe muscle deconditioning: (3) Dyspnea and respiratory abnormalities: (4) Generalized weakness: (5) Palliative care by specialist: Plan ACP discussion as noted above For likely extubation today Encourage med team to discuss re intubation and code status with pt, family feel these are not interventions he would want possible follow up fam mtg early next week - family to meet with pt over the weekend and they will let staff know if they desire another meeting. I have updated nursing, care mgt, primary and CCM teams. Thank you for allowing us to participate in the ongoing care of this patient. Please don't hesitate to call or page with any additional concerns. Dr. Susan Zheng DNP Director, Palliative Care Admission and Anticipated Discharge Date Admission Date: January 22, 2023 Subjective Might be able to extubate off sedation giving some appropriate yes/no responses/thumbs up seems more alert and awake CXR showed some inc infiltrates - re cultured yesterday and PCT today 1.07 which is lower than 01/25 PCT of 1.75 Review of Systems Review of Systems: All systems reviewed & are unremarkable except as noted in Subjective Physical Exam Physical Exam: intubated seems more awake/alert no acute resp distress Results & Data Vital Signs (Past 12 Hours) Vital Signs Temp Pulse Resp BP Pulse Ox O2 Del Method FiO2 01/28/23 10:00 38.0 C H 84 32 H 133/67 96 CPAP 30 01/28/23 09:00 37.9 C H 96 H 34 H 129/70 92 CPAP 30 01/28/23 08:32 88 26 H 97 30 01/28/23 08:00 Mechanical Vent 30 01/28/23 08:00 30 01/28/23 08:00 37.7 C H 96 H 37 H 125/63 93 CPAP 30 01/28/23 07:00 37.7 C H 87 23 129/62 100 CPAP 30 01/28/23 05:00 37.7 C H 82 20 100 01/28/23 05:00 110/62 01/28/23 04:00 30 01/28/23 04:00 124/59 L 01/28/23 04:00 37.5 C 86 19 100 01/28/23 03:00 37.6 C H 78 19 100 01/28/23 03:00 101/50 L 01/28/23 02:42 77 19 99 30 01/28/23 02:00 37.6 C H 79 19 100 01/28/23 02:00 110/55 L 01/28/23 01:00 99/50 L 01/28/23 01:00 37.6 C H 75 18 100 Mechanical Vent 01/28/23 01:00 Mechanical Vent 01/28/23 00:00 99/51 L 01/28/23 00:00 37.4 C 80 18 100 Mechanical Vent 01/28/23 00:00 35 Laboratory Results reviewed Diagnostic Findings reviewed PG Care Time/CCT Total # of Minutes Spent Total Time Spent: 75 Total Time Spent with Patient: Total time spent is greater than 50% in coordination of care (as documented) at patient's floor/unit and/or counseling patient: 30 min care coordination, patient care 45min ACP with family Advanced Care Planning 24160 Advanced Care Planning 30 Min 62163 Advanced Care Planning Additional 30 Min C[place] [address] SUB INP/OBS CARE 3/50MIN Patient Type Established History Comprehensive Exam Problem Focused Medical Decision Making High Complexity Diagnoses Discussion about advance care planning held with family member Z71.0 Severe muscle deconditioning R29.898 Dyspnea and respiratory abnormalities R06.00; R06.89 Generalized weakness R53.1 Palliative care by specialist Z51.5 Additional Codes Advanced Care Planning - 18529 Advanced Care Planning 30 Min: 95746 Advanced Care Planning 30 Min ([id number]) Advanced Care Planning - 95995 Advanced Care Planning Additional 30 Min: 10660 Advanced Care Planning Additional 30 Min ([id number])
[2023-01-28 13:18] LABS: Hematocrit (blood only) 24.7 % (42.0-52.0); Hemoglobin 7.8 g/dl (14.0-18.0)
[2023-01-28] MEDS: FLUTICASONE/VILANTEROL 100/25MCG 14 PUFFS/INHALER INH SCH (13:27)
--- NOTE | 2023-01-28 13:33 | Infectious Disease Progress Nt ---
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 He underwent thoracic endovascular aortic repair (TEVAR) on 12/23/22 with [place] endograft. He required renal stenting, kidney function worsened and was started on HD via RIJ permacath. More recently he was admitted to [facility] on 01/10 for placement. His course c/b cardiac arrest on 01/12 after contrast and scans requiring intubation 01/12 blood cultures grew CoNS in 2/4 bottles. Repeat blood cultures later that day post-cardiac arrest again grew CoNS in 4/4 bottles. BCID PCR panel with Staph epi, mec A detected. Blood cultures from 01/13 again grew CoNS in 2/4 bottles, as well as Staph haemolyticus in 1/4 bottles, and E faecalis in 2/4 bottles.. Pt's HD catheter was removed 01/18. Blood cultures cleared on 01/15. Catheter tip culture finalized as NG. PICC inserted on 01/20. On 01/19, he wa febrile with increased work of breathing. CT chest on 01/19 with cardiomegaly with mild intralobular septal thickening which may represent a component of pulm edema, emphysema with bronchitis, trace L pleural effusion, endograft with unchanged fusiform aneurysmal dilation of aorta. He was dced 01/21 to [facility]. He returns with hypoxic resp failure on . During that admission he was followed by ID with plan to complete 6 wks of Daptomycin for CONS and enterococcus bacteremia and presumed endovascular infection. In Ed, he required NRB with sats in 70s and tachypnea. He is currently intubated in ICU and unable to provide a history. He has no leukocytosis. Cr .3.88, procal 1.75 Ct chest without consolidation to suggest pneumonia. Moderate secretions within the trachea and mainstem bronchi and emphysema noted. Thoracic aortic endovascular stent graft in place. Aneurysmal dilatation of the descending thoracic aorta is stable. CTAB showed no significant change in appearance of the abdomen and pelvis. CT head without acute changes. He is currently on IV vancomycin and Zosyn. UC growing >100 K Klebsiella Oxy and sputum cx growing GNR. ID consulted for recent CONS bacteremia. # Acute hypoxic respiratory failure # Serratia marcescens on sputum cx # Klebsiella oxytoca in UC # fevers started 01/24 # Recent Staph epi bacteremia # Recent E faecalis bacteremia # Recent thoracic aortic aneurysm repair with graft # R HD catheter: removed 01/18 # right great toe screw in place Current Micro UC 01/22 > 100k Klebsiella oxytoca - R to cefazolin BC 01/22 NGTD Sputum cx 01/23 Serratia marcescens- ZAMBRANO Sensitive BC 01/26 P Sputum cx 01/26 P Prior Micro: 01/18 HD catheter tip cx: NG 01/17 BCx x2: NGTD 01/15 BCx x2: NG 01/13 BCx x2: Coag neg Staph not lug in 2/4 bottles (R oxacillin, clinda, TMP/SMX. S dapto, tetra, vanc), Staph haemolyticus in 1/4 bottles (R oxacillin, TMP/SMX, clinda. S dapto, tetra, vanc), E faecalis in 2/4 bottles (S amp, vanc). BCID PCR panel + Staph epi, E faecalis 01/12 BCx x2: Coag neg Staph not lugdunensis in 4/4 bottles. BCID PCR panel + Staph epi 01/12 BCx x2: Coag neg Staph not lugdunensis in 2/4 bottles (R oxacillin. S clinda, tetra, TMP/SMX) 01/11 UCx: >3 organisms Abx: Daptomycin 01/12-01/22 , 01/25 Zosyn 01/22 vanco 01/22- 01/25 cefepime 01/22, 01/24-01/25 Ceftriaxone 01/25-ongoing Coag neg Staph in multiple blood cultures is not a contaminant, lisa in conjun ction with his presenting symptoms on last admission, recent endovascular procedure with graft. Several possible sources of infection; 1) endovascular graft, 2) central lines-HD catheter, femoral line, 3) History of R great toe metal/screw (no evidence of infection here), 4) R AC fossa tenderness and redness/PIV infiltration (less likely, RUE US showed R basilic vein thrombosis, no evidence of soft tissue abscess), 5) acute sinusitis on imaging (less likely). Interestingly, pt also with E faecalis on 01/13 blood culture. TTE on 01/15 did not demonstrate vegetations. He was on daptomycin 10 mg/kg for Enterococcus with DAYNA 2 and Cons with plan to treat for 6 wks for endovascular infection, given multiple blood cultures with Staph epi from 01/12-01/13, and E faecalis in 2/4 bottles on 01/13, and he is high risk for graft infection with recent endograft placement. Daptomycin was held this admission and Vancomycin started pending Rule out of a gram positive pulmonary infection. Respiratory cx positive for only Serratia marcescens. UC + for Klebsiella. Vanco discontinued 01/25 and dapto restarted. Zosyn switched to Ceftriaxone. His course c/b fevers since 01/24. ct head with Chronic right maxillary, sphenoid and ethmoid sinusitis. No acute sinusitis. CXR with increased infiltrates- ? pna vs pneumonitis. Fevers - unclear source; ? infection (currently covered for known organisms that have grown) , ? Drug fever, ? dvts/clots, ? central fever Head imaging benign, LE dopplers negative. Repeat BC and sputum cx sterile Recommendations: In setting of persistent fevers , broadened abx to Meropenem 1 g iv q12 ( cr cl 28) and switched from Dapto to Vanco pending BC and sputum cx Follow up repeat BC and sputum cx from 01/26 ID will continue to follow. Hazel Carreno MD, MPH Infectious Disease [facility], ID Division Call [phone] with questions. Admission and Anticipated Discharge Date Admission Date: January 22, 2023 Subjective This patient recommendation is based on a telemedicine consult request which was completed asynchronously through chart review and information provided by the primary physician. The patient was not seen or examined today. The evaluation is consultative in nature and all patient care and treatment decisions can either be accepted or rejected by the patient's primary hospital-based treating physician using their own independent medical judgment for their patient. Time Spent Reviewing Chart: 11 - 20 minutes Febriel, but fevers trending down. Results & Data Vital Signs (Past 12 Hours) Vital Signs Temp Pulse Resp BP Pulse Ox O2 Del Method FiO2 01/28/23 13:00 38.1 C H 100 H 31 H 140/79 97 BiPAP 30 01/28/23 13:00 BiPAP 01/28/23 12:00 38.2 C H 97 H 35 H 147/78 H 93 BiPAP 30 01/28/23 11:00 37.9 C H 82 16 121/74 98 CPAP 30 01/28/23 10:00 38.0 C H 84 32 H 133/67 96 CPAP 30 01/28/23 09:00 37.9 C H 96 H 34 H 129/70 92 CPAP 30 01/28/23 08:32 88 26 H 97 30 01/28/23 08:00 Mechanical Vent 30 01/28/23 08:00 30 01/28/23 08:00 37.7 C H 96 H 37 H 125/63 93 CPAP 30 01/28/23 07:00 37.7 C H 87 23 129/62 100 CPAP 30 01/28/23 05:00 37.7 C H 82 20 100 01/28/23 05:00 110/62 01/28/23 04:00 30 01/28/23 04:00 124/59 L 01/28/23 04:00 37.5 C 86 19 100 01/28/23 03:00 37.6 C H 78 19 100 01/28/23 03:00 101/50 L 01/28/23 02:42 77 19 99 30 01/28/23 02:00 37.6 C H 79 19 100 01/28/23 02:00 110/55 L Laboratory Results Short CBC 01/28/23 01/28/23 Range/Units 04:01 12:43 WBC 7.83 (4.8-10.8) K/ul Hgb 7.3 L 7.8 L (14.0-18.0) g/dl Hct 23.2 L 24.7 L (42.0-52.0) % Plt Count 211 (130-400) K/uL BMP 01/28/23 04:01 Sodium 140 Potassium 3.5 Chloride 108 H Carbon Dioxide 25 BUN 59 H Creatinine 2.63 H Glucose 121 H Calcium 8.1 L Liver Function 01/28/23 Range/Units 04:01 Total Bilirubin 0.3 (0.2-1.0) mg/dl AST 29 (13-39) U/L ALT 30 (7-52) U/L Alkaline Phosphatase 128 H (34-104) U/L Albumin 2.2 L (3.4-5.0) gm/dl Diagnostic Findings Microbiology 01/26/23 Unknown Urine,Indwelling Cath Urine Culture - Final No growth - less than 1,000 colonies/mL. 01/26/23 09:10 Blood Aerobic Blood Culture - Preliminary No growth in Aerobic bottle after 48 hours. 01/26/23 09:10 Blood Anaerobic Blood Culture - Preliminary No growth in Anaerobic bottle after 48 hours. 01/26/23 09:00 Blood Aerobic Blood Culture - Preliminary No growth in Aerobic bottle after 48 hours. 01/26/23 09:00 Blood Anaerobic Blood Culture - Preliminary No growth in Anaerobic bottle after 48 hours. 01/26/23 15:39 Sputum,Vent Suction Gram Stain - Final 01/26/23 15:39 Sputum,Vent Suction Sputum Culture - Final Light normal eliezer. 01/22/23 14:11 Blood Aerobic Blood Culture - Final No growth in Aerobic bottle after 5 days. 01/22/23 14:11 Blood Anaerobic Blood Culture - Final No growth in Anaerobic bottle after 5 days. 01/22/23 13:20 Blood Aerobic Blood Culture - Final No growth in Aerobic bottle after 5 days. 01/22/23 13:20 Blood Anaerobic Blood Culture - Final No growth in Anaerobic bottle after 5 days. 01/23/23 Unknown Sputum,Vent Suction Gram Stain - Final 01/23/23 Unknown Sputum,Vent Suction Sputum Culture - Final Serratia marcescens 01/22/23 15:15 Urine,Straight Cath Urine Culture - Final Klebsiella oxytoca Chest X-Ray 01/26/23 07:00 XR chest 1V portable CLINICAL HISTORY: Respiratory failure. COMPARISON STUDY: Chest CT January 22, 2023. Chest radiograph January 23, 2023. FINDINGS: Tip of endotracheal tube is 3.7 cm above the gerson. Tip of nasogastric tube is at least within the body of the stomach. A right PICC is in place. There is no pneumothorax. No pleural effusion is identified. Endovascular thoracic aortic stent graft is noted. Bibasilar airspace opacities have progressed. IMPRESSION: 1. Satisfactory positioning of lines and tubes. 2. Increase in bibasilar opacities which could reflect pneumonia or aspiration pneumonitis. 3. No pneumothorax. ACT 112: Negative or not required by law. Electronically signed by: Peterson Hart M.D. 01/26/2023 9:06 AM Venous Doppler Study 01/27/23 15:00 US venous doppler LE CLINICAL HISTORY: r/o dvt TECHNIQUE: Bilateral lower extremity real-time compression venous ultrasound with Color Doppler imaging. Utilizing real-time ultrasonic imaging multiple real time high-resolution ultrasonic images with compression and noncompression maneuvers of the deep venous system in addition to color doppler imaging were performed from the common femoral vein through the proximal calf veins. COMPARISON: None available at the time of this dictation. FINDINGS/IMPRESSION: Currently there is normal compressibility of the deep venous system from the common femoral vein through the proximal calf veins. No superficial venous thrombosis is identified. ACT 112: Negative or not required by law. Electronically signed by: Farzad Lao M.D. 01/28/2023 7:24 AM Chest X-Ray 01/28/23 06:37 XR chest 1V portable CLINICAL HISTORY: pneumonia TECHNIQUE: Single frontal radiograph of the chest was obtained. Comparison: Comparison is made to chest radiograph 01/26/2023 FINDINGS: Lines and tubes are stable. Aortic graft is seen. The lungs are clear. No evidence of pleural effusion or pneumothorax. IMPRESSION: Interval improvement in previously noted bibasilar opacities. No radiographic evidence of pneumonia. ACT 112: Negative or not required by law. Electronically signed by: Farzad Lao M.D. 01/28/2023 9:54 AM Medications Administered Home Medications Medication Instructions Recorded Confirmed Last Taken aspirin 81 mg tablet,delayed 81 mg PO QAM 01/18/19 01/22/23 01/22/23 release (Nora Low Dose Aspirin) amlodipine 5 mg tablet 5 mg PO QAM 03/29/22 01/22/23 01/22/23 metoprolol tartrate 100 mg tablet 100 mg PO BID 03/29/22 01/22/23 01/22/23 09:00 albuterol sulfate 90 mcg/actuation 2 puff inhalation Q6H PRN Wheezing 01/10/23 01/22/23 Unknown aerosol inhaler clopidogrel 75 mg tablet (Plavix) 75 mg PO QAM 01/10/23 01/22/23 01/22/23 fluticasone furoate 100 1 inh inhalation QAM 01/10/23 01/22/23 01/22/23 mcg-vilanterol 25 mcg/dose inhalation powder (Breo Ellipta) oxycodone 5 mg tablet 5 mg PO Q4H PRN Pain 01/10/23 01/22/23 Unknown apixaban 5 mg tablet (Eliquis) 5 mg PO BID #50 tabs 01/21/23 01/22/23 01/22/23 09:00 daptomycin 350 mg/50 mL in 0.9 % 850 mg IV Q48H 01/22/23 01/22/23 Unknown sodium chloride intravenous piggyback insulin regular human 100 unit/mL 1 sliding scale dose subcut ACHS 01/22/23 01/22/23 Unknown injection solution (Humulin R PRN BLOOD SUGAR CONTROL Regular U-100 Insulin) naloxone 4 mg/actuation nasal 4 mg intranasal DIRECTED PRN 01/22/23 01/22/23 Unknown spray (Narcan) Opioid Overdose Active Medications Generic Name Dose Route Start Last Admin Trade Name Freq PRN Reason Stop Dose Admin Aspirin 81 mg 01/24/23 09:00 01/28/23 09:07 Aspirin 81 Mg Chew PO 02/23/23 08:59 81 mg DAILY GABY Administration Clopidogrel Bisulfate 75 mg 01/24/23 09:00 01/28/23 09:07 Clopidogrel Bisulfate 75 Mg Tab PO 02/23/23 08:59 75 mg QAM GABY Administration Enteral Nutritional Formula 1,000 ml 01/23/23 12:30 01/27/23 05:15 Novasource Renal 2.0 Judah 1000ml Bag OG 02/22/23 12:29 1,000 ml UD GABY Administration Protocol Fentanyl Citrate 50 mcg 01/25/23 11:28 01/27/23 21:26 Fentanyl Citrate Pf 100 Mcg/2 Ml Vial IV 02/08/23 11:27 50 mcg Q2H PRN Administration Moderate Pain (4,5,6) on NRS Fluticasone/Vilanterol 1 puffs 01/23/23 09:00 01/28/23 13:27 Fluticasone/Vilanterol 100/25mcg 14 Puffs/Inhaler INH 02/22/23 08:59 Not Given QAM GABY Heparin Sodium/Dextrose 25,000 units in 500 mls @ 25 mls/hr 01/23/23 09:45 01/28/23 14:55 Heparin Sodium/Dextrose IV 02/22/23 09:44 Not Given .Q20H GABY Protocol 1,250 UNITS/HR Pantoprazole Sodium 40 mg/ 10 mls @ 5 mls/min 01/26/23 09:00 01/28/23 09:09 Syringe IV 02/25/23 08:59 5 mls/min DAILY GABY Administration Meropenem 500 mg/ Syringe 10 mls @ 2 mls/min 01/27/23 15:15 01/28/23 15:20 IV 02/03/23 15:14 2 mls/min Q8H GABY Administration Protocol Acetaminophen 1,000 mg in 100 mls @ 400 mls/hr 01/28/23 15:10 01/28/23 15:43 Ofirmev IV 01/31/23 15:09 Infused Q8H PRN Infusion Fever Insulin Aspart 0 units 01/24/23 18:00 01/28/23 17:41 Insulin Aspart Per Unit Charge SC 02/23/23 17:59 Not Given Q6 GABY Metoprolol Tartrate 5 mg 01/28/23 18:00 01/28/23 18:08 Metoprolol Tartrate 1 Mg/Ml Vial IV 02/27/23 17:59 5 mg Q6 GABY Administration
--- NOTE | 2023-01-28 13:43 | Pharmacy Report ---
Pharmacy PK ABX Note - Date of Service January 28, 2023 - Assessment and Plan Assessment 01/28: Vancomycin was discontinued after the 01/25 dose and switched back to daptomycin. Cefepime de-escalated to ceftriaxone. Patient with persistent fevers since de-escalation and was changed back to vancomycin + meropenem on the . Patient received a 2000 mg dose at 1621 on 01/27. Random level this morning 29.0. Patient should be therapeutic through tomorrow AM, will not redose today. Random level in AM to assist with dosing. 01/25: * Sputum speciated to pollard sensitive serratia. I suspect cefepime could be de- escalated to ceftriaxone but would defer to ID. * SCr improved again today 2.99->2.74 * Level this morning was 21.3. * Will continue to dose by levels until renal function stabilizes. * Will repeat a reduced dose of vanc today at noon and get another level with AM labs. 01/24 * Cefepime adjusted to zosyn yesterday * SCr continues to downtrend but will continue to dose by levels * Level 21.1 mcg/mL this AM- will give additional 1x dose later today * Await ID consult for further recommendations 01/23 * 72 yo male who was discharged from the hospital 01/21/2023 due to MRSE and E. faecalis bacteremia on daptomycin, respiratory arrest and [place]. Readmitted 01/22 due to altered mental status and hypoxemia, currently being treated for bacteremia, HAP, and UTI * Dapto switched to vanco for better pulmonary coverage * Cefepime started * ID consulted * Unclear what new baseline SCr may be after recent [place]. SCr is trending down today to 3.4. Will dose vancomycin via level. * Level of 16.1 mcg/mL this AM likely therapeutic. Will give additional one- time dose of vancomycin today and repeat random level tomorrow AM Plan Vancomycin * Random level in AM Pharmacy will continue to follow and will adjust dose/frequency as necessary. Thank you. Pharmacy has transitioned to AUC monitoring for vancomycin. AUC/DAYNA is the preferred PK/PD target and is associated with decreased risk of nephrotoxicity compared to traditional trough targets.
[2023-01-28 13:46] LABS: Partial Thromboplastin Ratio 1.1; Partial Thromboplastin Time 32.3 Seconds (21.0-31.0)
[2023-01-28] MEDS ORDERED: HEPARIN SOD (PORCINE) 1000 UNIT/ML IV ONE (13:57)
[2023-01-28] MEDS ORDERED: HEPARIN IV BOLUS 3,000 UNITS in SYRINGE 0 ML IV ONE (14:30)
[2023-01-28] MEDS ORDERED: POLYETHYLENE (MIRALAX) 17 GM PACK PO PRN (14:39)
[2023-01-28] MEDS ORDERED: dilTIAZem HCl 5 MG/ML 5 ML VIAL IV STA (15:04)
[2023-01-28] MEDS: ACETAMINOPHEN 1,000 MG/100 ML VIAL IV PRN (15:21)
[2023-01-28] MEDS: POTASSIUM ACETATE/NSS 10 MEQ/105 ML BAG IV SCH ×2 (15:35→16:32)
--- NOTE | 2023-01-28 15:47 | Electrocardiogram Report ---
Test Reason : Blood Pressure : / mmHG Vent. Rate : 100 BPM Atrial Rate : 100 BPM P-R Int : 164 ms QRS Dur : 098 ms QT Int : 356 ms P-R-T Axes : 070 263 073 degrees QTc Int : 459 ms Sinus rhythm with Premature supraventricular complexes Right superior axis deviation Possible Right ventricular hypertrophy Abnormal ECG When compared with ECG of 22-JAN-2023 13:17, Premature supraventricular complexes are now Present Confirmed by Raj Saldana ([id number]) on 01/28/2023 3:46:59 PM Referred By: REFERRED SELF Confirmed By:Raj Saldana
[2023-01-28] MEDS: METOPROLOL TARTRATE 1 MG/ML VIAL IV SCH ×2 (18:08→23:25)
[2023-01-28 21:02] LABS: Partial Thromboplastin Ratio 1.8
[2023-01-28 21:06] LABS: Partial Thromboplastin Time 49.6 Seconds (21.0-31.0)
--- NOTE | 2023-01-28 21:31 | Hospitalist Progress Note ---
Date of Service January 28, 2023 Assessment & Plan (1) Acute respiratory failure with hypoxia: Plan: Acute hypoxic respiratory failure Presents on nonrebreather SPO2 sats in the 70s with increased tachypnea ABG revealed respiratory acidosis, patient intubated and started on broad- spectrum antibiotic after he failed BiPAP - CTchest: No consolidation suggestive of pneumonia. Emphysema. Moderate secretions of the trachea and mainstem bronchi, No leukocytosis, procalcitonin elevated Continue Ceftriaxone and daptomycin per ID -Sputum cultures growing Serratia Patient was recently admitted to this facility with generalized weakness, after patient had a endovascular graft for aortic aneurysm, and other facility, the course was complicated with persistent gram-positive bacteremia, cardiopulmonary arrest, patient discharged to rehab facility after PICC line placed on 6 weeks course of treatment with daptomycin -Extubated on 01/28 -Family meeting with palliative completed 01/28 Once patient is more improved, will have discussion with patient regarding his goals of care. (2) Acute encephalopathy: Plan: Etiology is uncertain, EEG showed disorganized background with slowing but no epileptiform waves MRI did not show any acute pathology Neurologist on consult, (3) Gram-positive bacteremia: Plan: History of gram-positive bacteremia - METAL TECHNICIAN, S. haemolyticus, E facalis cultures on prior admit. Recurrent METAL TECHNICIAN bacteremia 01/12-01/13 vanc/dapto sensitive. Endograft at risk of infectious, but no clear infection during admit Repeat blood cultures pending Discharged on daptomycin started 01/12, patient did receive Zosyn 01/12 and 01/13. - Was recommended to complete 6 weeks of daptomycin, and dosing was increased to 10 mg/kg's for Enterococcus with DAYNA of 2. -Continue daptomycin for a total of 6 weeks (4) Acute UTI: Plan: urine cultures growing Klebsiella Oxytoca Continue ceftriaxone (5) Atrial fibrillation: Plan: History of A-fib, recent cardiopulmonary arrest DOAC converted to heparin while inpatient and critically ill Admitting EKG normal sinus rhythm without territorial signs of ischemia Following contrast exposure despite premedication at prior hospitalization. Likely 2/2 critical illness, but cannot exclude contrast allergy. Patient is anticoagulated so risk of PE is low, will convert apixaban to heparin while (6) CAROLINA (acute kidney injury): Plan: CAROLINA, transient HD dependence CAROLINA with bilateral renal infarcts and IV contrast administration at last hospitalization Last hemodialysis 01/14/2023, creatinine was stable at around 3.4 since Right IJ was removed 01/18/2023. No further dialysis was anticipated at that time No emergent indication for dialysis on admission - nephrology consulted Anemia Normocytic continue to monitor (7) GERD (gastroesophageal reflux disease): Plan: - PPI (8) Diabetes mellitus, type 2: Plan: ICU hyperglycemia per (9) CAD (coronary artery disease): Plan: - With history of stents Troponin is downtrending from prior, 27.5. Trended. No ischemic findings on EKG, (10) Malnutrition: Plan: continue tube feeds Plan DVT prophylaxis: On heparin Diet: N.p.o. Disposition: ICU CODE STATUS: Full code, family is discussing whether patient would want to convert to DNR/DNI given current circumstance Admission and Anticipated Discharge Date Admission Date: January 22, 2023 Subjective 72 yo male resting after being extubated. Review of Systems Review of Systems: All systems reviewed & are unremarkable except as noted in HPI & below Physical Exam Physical Exam: Patient is now extubated, resting. HEENT--PERRL, EOMI, mucous membranes and oropharynx mildly dry Neck--supple. No JVD. No bruits. Thyroid normal, trachea midline, no adenopathy. Heart--normal S1 and S2. No murmurs, rubs or gallops. Lungs--clear bilaterally, no respiratory distress, no accessory muscle use. Abdomen--normal bowel sounds and soft. Mild epigastric and left sided abdominal pain Extremities--no cyanosis or clubbing. No edema. Dermatologic--normal skin turgor, normal color, no abnormal lymph nodes, no rash. Rheumatologic--normal range of motion Results & Data Results & Data Vital Signs (Past 12 Hours) Vital Signs Temp Pulse Pulse Resp BP Pulse Ox O2 Del Method 01/28/23 20:01 36.7 C 99 H 31 H 93 01/28/23 20:01 145/95 H 01/28/23 20:00 36.7 C 100 H 35 H 90 01/28/23 20:00 High Flow Nasal Cannula 01/28/23 19:45 25 H 93 High Flow Nasal Cannula 01/28/23 19:01 36.6 C 94 H 21 96 01/28/23 19:01 143/61 H 01/28/23 19:00 36.6 C 95 H 37 H 99 01/28/23 18:18 84 127/70 01/28/23 18:14 36.7 C 84 34 H 97 01/28/23 18:14 127/70 01/28/23 18:08 104 H 140/75 01/28/23 18:01 36.7 C 103 H 14 140/75 95 High Flow Nasal Cannula 01/28/23 17:01 37.1 C 134 H 22 159/88 H 94 High Flow Nasal Cannula 01/28/23 16:29 104 H 25 H 95 High Flow Nasal Cannula 01/28/23 16:01 37.8 C H 97 H 25 H 146/58 H 92 BiPAP 01/28/23 15:00 37.9 C H 103 H 33 H 145/78 H 93 BiPAP 01/28/23 14:40 102 H 33 H 97 01/28/23 14:01 38.0 C H 102 H 32 H 154/71 H 95 BiPAP 01/28/23 13:00 38.1 C H 100 H 31 H 140/79 97 BiPAP 01/28/23 13:00 BiPAP 01/28/23 12:00 38.2 C H 97 H 35 H 147/78 H 93 BiPAP 01/28/23 11:55 99 H 39 H 93 01/28/23 11:46 90 34 H 95 01/28/23 11:00 37.9 C H 82 16 121/74 98 CPAP 01/28/23 10:00 38.0 C H 84 32 H 133/67 96 CPAP O2 Flow Rate FiO2 01/28/23 20:01 01/28/23 20:01 01/28/23 20:00 01/28/23 20:00 40 35 01/28/23 19:45 40 35 01/28/23 19:01 01/28/23 19:01 01/28/23 19:00 01/28/23 18:18 01/28/23 18:14 01/28/23 18:14 01/28/23 18:08 01/28/23 18:01 40 35 01/28/23 17:01 40 35 01/28/23 16:29 40 35 01/28/23 16:01 30 01/28/23 15:00 30 01/28/23 14:40 30 01/28/23 14:01 30 01/28/23 13:00 30 01/28/23 13:00 01/28/23 12:00 30 01/28/23 11:55 30 01/28/23 11:46 30 01/28/23 11:00 30 01/28/23 10:00 30 PG Care Time/CCT Total # of Minutes Spent Total Time Spent with Patient: Total time spent is greater than 50% in coordination of care (as documented) at patient's floor/unit and/or counseling patient: Coding Level of Care Code 70602 SUB INP/OBS CARE 2/35MIN Diagnoses Acute respiratory failure with hypoxia J96.01 Acute encephalopathy G93.40 Gram-positive bacteremia R78.81 Acute UTI N39.0 Atrial fibrillation I48.91 [place] (acute kidney injury) N17.9 GERD (gastroesophageal reflux disease) K21.9 Type 2 diabetes mellitus with other circulatory complication, without long-term current use of insulin E11.59 Diabetes mellitus complication detail: with other circulatory complications Diabetes mellitus complication status: with circulatory complication Diabetes mellitus predatory animal exterminator insulin use: without fci use Coronary artery disease involving tribal coronary artery of tribal heart without angina pectoris I25.10 Associated angina: without angina Coronary Disease-Associated Artery/Lesion type: [place] artery [place] vs. transplanted heart: tribal heart Malnutrition E46 (8) Diabetes mellitus, type 2 Diabetes mellitus complication detail: with other circulatory complications Diabetes mellitus complication status: with circulatory complication Diabetes mellitus fci insulin use: without fci use Qualified Code(s): E11.59 - Type 2 diabetes mellitus with other circulatory complications (9) CAD (coronary artery disease) Associated angina: without angina Coronary Disease-Associated Artery/Lesion type: [place] artery [place] vs. transplanted heart: tribal heart Qualified Code(s): I25.10 - Atherosclerotic heart disease of tribal coronary artery without angina pectoris
[2023-01-29] MEDS: HEPARIN SODIUM/DEXTROSE 25,000 UNITS/500 ML BAG IV SCH ×2 (02:28→22:37)
[2023-01-29 04:11] LABS: Basophils # (auto) 0.02 K/uL (0.00-0.20); Basophils % (auto) 0.3 %; Eosinophils # (auto) 0.28 K/uL (0.00-0.50); Eosinophils % (auto) 3.6 %; Hematocrit (blood only) 26.1 % (42.0-52.0); Hemoglobin 8.1 g/dl (14.0-18.0); Immature Granulocytes # (auto) 0.04 K/uL (0.01-0.20); Immature Granulocytes % (auto) 0.5 %; Lymphocytes % (auto) 16.5 %; Mean Corpuscular Hemoglobin 28.7 pg (25.0-34.0); Mean Corpuscular Volume 92.6 fL (80.0-100.0); Mean Platelet Volume 10.8 fL (9.4-12.4); Monocytes # (auto) 0.59 K/uL (0.11-0.59); Monocytes % (auto) 7.5 %; Neutrophils # (auto) 5.64 K/uL (1.40-6.50); Neutrophils % (auto) 71.6 %; Platelet Count 203 K/uL (130-400); RDW Coefficient of Variation 14.6 % (11.5-14.5); RDW Standard Deviation 49.2 fL (36.4-46.3); Red Blood Count 2.82 M/uL (4.70-6.10); White Blood Count 7.87 K/ul (4.8-10.8)
[2023-01-29 04:52] LABS: BUN Creatinine Ratio 22.7 (10-20); Calcium 8.5 mg/dl (8.6-10.3); Creatinine Clr Calc Pharmacy 27.5 ml/min; Est GFR (African American) 27.8 ml/min; Phosphorus 5.4 mg/dl (2.5-4.9); Potassium 4.2 mmol/L (3.5-5.1)
[2023-01-29 05:01] LABS: Partial Thromboplastin Ratio 1.6
[2023-01-29 05:04] LABS: Partial Thromboplastin Time 45.8 Seconds (21.0-31.0)
[2023-01-29] MEDS: INSULIN ASPART PER UNIT CHARGE SC SCH ×4 (06:20→23:47)
[2023-01-29] MEDS: METOPROLOL TARTRATE 1 MG/ML VIAL IV SCH ×4 (06:38→23:47)
--- NOTE | 2023-01-29 07:24 | XRay Report ---
SINGLE VIEW CHEST CLINICAL HISTORY: Respiratory failure. FINDINGS: An AP, portable, upright chest radiograph is compared to study date 01/28/2023 and correlat ed with chest CT dictated 01/22/2023. Endotracheal and enteric tubes have been removed. A right-sided PICC line is unchanged in position. The heart is enlarged. The pulmonary vasculature is noncongested . A stent graft is again seen in the thoracic aorta. Emphysema and chronic interstitial thickening si milar to previous. There are increasing bibasilar airspace opacities. No large pleural effusion or pn eumothorax is identified. The skeletal structures are osteopenic. The bony thorax is grossly intact. IMPRESSION: 1. Endotracheal and enteric tubes have been removed. 2. Cardiomegaly and emphysema without radiographic evidence of congestive failure. 3. Bibasilar airspace opacities have increased from yesterday. The could represent progressive atelec tasis versus an infectious/inflammatory pneumonitis. Clinical correlation will be required and radiog raphic follow-up to resolution is recommended. ACT 112: Negative or not required by law. Electronically signed by: Mando Alfonso M.D. 01/29/2023 7:21 AM
[2023-01-29] MEDS: MEROPENEM 500 MG in SYRINGE 0 ML IV SCH ×3 (07:56→23:47)
--- NOTE | 2023-01-29 08:28 | Intensivist Progress Note ---
Date of Service January 29, 2023 Assessment & Plan (1) Acute encephalopathy: (2) History of thoracic aortic aneurysm repair: (3) Gram-positive bacteremia: (4) Acute UTI: (5) Uremia: (6) Complicated UTI (urinary tract infection): (7) Endotracheally intubated: Plan 72-year-old male who was discharged from the hospital 01/21/2023 due to gram- positive cocci bacteremia, respiratory arrest and CAROLINA is now readmitted due to altered mental status and hypoxemia. Neurologic: brain MRI/CT negative. EEG negative. neurology consult appreciated. much improved since admission. Pulmonary: 01/23/2023 intubated 01/28 extubated Did well after extubation. This morning however he looks weaker, is more tachypneic and not able to clear oral secretions. Will monitor closely with supportive care. may have to consider re-intubation which patient is agreeable. Cardiovascular: history of thoracic aortic aneurysm repair and dilation of the thoracic aorta to 5.1 cm. Echo 01/13/2023 with mild concentric LVH and normal LV function. Normal RV function. Continue heparin drip for atrial fibrillation and prior DVT. Gastrointestinal: Protonix 40 mg twice daily. NPO Renal: Recent admission with CAROLINA. Underwent hemodialysis during his last admission due to [place] secondary to bilateral renal infarcts and IV contrast. Notably, he also had bilateral renal artery stenting at [facility] 12/23/2022. Creatinine improving along with BUN. renl signed off. Monitor urine output closely which appears adequate at this time. Patient also with a history of renal cell carcinoma status post partial nephrectomy in 2015 Infectious disease: UCx 01/22/2023 klebsiella Sputum Cx serratia vanc and meropenem d3 Appeared to have defervesced and clinically improved after switching to current broad spectrum regimen. However today seems to have taken a step back again. CXR today also with worsening/new infiltrates. ID consult much appreciated. Hematologic: Patient with severe anemia at baseline. Status post 1 unit packed RBCs 01/22/2023. Continue to monitor. . Lines and tubes: Right single-lumen PICC line in place from recent hospitalization. Acosta catheter in place (01/22/2023). 18-gauge peripheral IV in the left antecubital fossa. VTE prophylaxis: SCDs, heparin drip CODE STATUS: Full I have personally spent 48 minutes of critical care time in the direct management of this patient. This is a life/limb threatening event. This includes time spent evaluating patient, direct bedside care, chart review, placing orders, interpretation of diagnostic studies, discussion with consultants, patient, and family members, as well as other required patient management activities. This time is exclusive of all separately billable procedures, and teaching time and separate from and in addition to any other critical care service time. Discussed with RN. Plan to call and speak with family. Admission and Anticipated Discharge Date Admission Date: January 22, 2023 Subjective extubated yesterday to BIPAP. switched to high flow and now nasal cannula. Did well overnight. Physical Exam Constitutional: cooperative and comfortable Respiratory: Auscultation: + rhonchi scattered ronchi Cardiovascular: Rate/Rhythm: regular rate and regular rhythm Skin: no rashes, warm and dry Neurologic: CN's II-XI intact bilaterally and awake Psychiatric: Orientation: alert easily engaged in conversation. makes jokes. Results & Data Results & Data Vital Signs (Past 12 Hours) Vital Signs Temp Pulse Pulse Resp BP Pulse Ox O2 Del Method 01/29/23 07:07 90 146/82 H 01/29/23 06:38 101 H 164/80 H 01/29/23 06:00 37.7 C H 106 H 41 H 94 01/29/23 06:00 117/87 01/29/23 05:00 155/80 H 01/29/23 05:00 37.8 C H 103 H 34 H 95 01/29/23 04:00 141/85 H 01/29/23 04:00 37.8 C H 102 H 31 H 98 01/29/23 03:00 155/76 H 01/29/23 03:00 37.7 C H 99 H 29 H 96 01/29/23 02:50 98 H 25 H 98 High Flow Nasal Cannula 01/29/23 02:00 37.7 C H 100 H 37 H 98 01/29/23 01:00 37.7 C H 99 H 36 H 98 01/29/23 00:00 37.5 C 95 H 33 H 97 01/29/23 00:00 158/89 H 01/29/23 00:00 88 01/28/23 23:56 97 H 145/88 H 01/28/23 23:25 110 H 175/82 H 01/28/23 23:00 175/82 H 01/28/23 23:00 37.3 C 107 H 30 H 01/28/23 22:27 107 H 24 93 High Flow Nasal Cannula 01/28/23 22:16 37.1 C 109 H 30 H 94 01/28/23 22:16 166/84 H 01/28/23 22:00 37.1 C 106 H 25 H 89 L 01/28/23 21:01 36.9 C 95 H 24 94 01/28/23 21:01 147/79 H 01/28/23 21:00 36.9 C 94 H 23 95 O2 Flow Rate FiO2 01/29/23 07:07 01/29/23 06:38 01/29/23 06:00 01/29/23 06:00 01/29/23 05:00 01/29/23 05:00 01/29/23 04:00 01/29/23 04:00 01/29/23 03:00 01/29/23 03:00 01/29/23 02:50 35 40 01/29/23 02:00 01/29/23 01:00 01/29/23 00:00 01/29/23 00:00 01/29/23 00:00 01/28/23 23:56 01/28/23 23:25 01/28/23 23:00 01/28/23 23:00 01/28/23 22:27 40 40 01/28/23 22:16 01/28/23 22:16 01/28/23 22:00 01/28/23 21:01 01/28/23 21:01 01/28/23 21:00 PG Care Time/CCT Total # of Minutes Spent Total Time Spent with Patient: Total time spent is greater than 50% in coordination of care (as documented) at patient's floor/unit and/or counseling patient: Coding Level of Care Code 39331 CRITICAL CARE 1ST 30-74M Diagnoses Acute encephalopathy G93.40 History of thoracic aortic aneurysm repair Z98.890; Z86.79 Gram-positive bacteremia R78.81 Acute UTI N39.0 Uremia N19 Complicated UTI (urinary tract infection) N39.0 Endotracheally intubated Z97.8
[2023-01-29] MEDS: FLUTICASONE/VILANTEROL 100/25MCG 14 PUFFS/INHALER INH SCH (09:45)
--- NOTE | 2023-01-29 09:45 | Pharmacy Report ---
Pharmacy PK ABX Note - Date of Service January 29, 2023 - Assessment and Plan Assessment 01/29: * Random level this morning was 22.1 with no redosing yesterday. Will redose with 500mg X 1 today and recheck a random level in the morning. 01/26 bcx and sputum cx no growth to date, but patient continues to spike fevers. 01/28: Vancomycin was discontinued after the 01/25 dose and switched back to daptomycin. Cefepime de-escalated to ceftriaxone. Patient with persistent fevers since de-escalation and was changed back to vancomycin + meropenem on the . Patient received a 2000 mg dose at 1621 on 01/27. Random level this morning 29.0. Patient should be therapeutic through tomorrow AM, will not redose today. Random level in AM to assist with dosing. 01/25: * Sputum speciated to pollard sensitive serratia. I suspect cefepime could be de- escalated to ceftriaxone but would defer to ID. * SCr improved again today 2.99->2.74 * Level this morning was 21.3. * Will continue to dose by levels until renal function stabilizes. * Will repeat a reduced dose of vanc today at noon and get another level with AM labs. 01/24 * Cefepime adjusted to zosyn yesterday * SCr continues to downtrend but will continue to dose by levels * Level 21.1 mcg/mL this AM- will give additional 1x dose later today * Await ID consult for further recommendations 01/23 * 72 yo male who was discharged from the hospital 01/21/2023 due to MRSE and E. faecalis bacteremia on daptomycin, respiratory arrest and CAROL[place]. Readmitted 01/22 due to altered mental status and hypoxemia, currently being treated for bacteremia, HAP, and UTI * Dapto switched to vanco for better pulmonary coverage * Cefepime started * ID consulted * Unclear what new baseline SCr may be after recent CAROL[place]. SCr is trending down today to 3.4. Will dose vancomycin via level. * Level of 16.1 mcg/mL this AM likely therapeutic. Will give additional one- time dose of vancomycin today and repeat random level tomorrow AM Plan Vancomycin * 500mg X 1 today * Random level in AM Pharmacy will continue to follow and will adjust dose/frequency as necessary. Thank you. Pharmacy has transitioned to AUC monitoring for vancomycin. AUC/DAYNA is the preferred PK/PD target and is associated with decreased risk of nephrotoxicity compared to traditional trough targets.
[2023-01-29] MEDS: PANTOprazole 40 MG in SYRINGE 0 ML IV SCH (09:46)
[2023-01-29] MEDS: ASPIRIN 81 MG CHEW PO SCH (10:37)
[2023-01-29] MEDS: CLOPIDOGREL BISULFATE 75 MG TAB PO SCH (10:37)
[2023-01-29] MEDS ORDERED: VANCOMYCIN HCL 500 MG in NSS 100mL IV SCH (12:00)
--- NOTE | 2023-01-29 21:16 | Hospitalist Progress Note ---
Date of Service January 29, 2023 Assessment & Plan (1) Acute respiratory failure with hypoxia: Plan: Acute hypoxic respiratory failure Presents on nonrebreather SPO2 sats in the 70s with increased tachypnea ABG revealed respiratory acidosis, patient intubated and started on broad- spectrum antibiotic after he failed BiPAP - CTchest: No consolidation suggestive of pneumonia. Emphysema. Moderate secretions of the trachea and mainstem bronchi, No leukocytosis, procalcitonin elevated Continue Ceftriaxone and daptomycin per ID -Sputum cultures growing Serratia Patient was recently admitted to this facility with generalized weakness, after patient had a endovascular graft for aortic aneurysm, and other facility, the course was complicated with persistent gram-positive bacteremia, cardiopulmonary arrest, patient discharged to rehab facility after PICC line placed on 6 weeks course of treatment with daptomycin -Extubated on 01/28 -Family meeting with palliative completed 01/28 Once patient is more improved, will have discussion with patient regarding his goals of care. On 01/29 Patient appears more confused, and having fevers. Patient may need to be reintubated, now on high flow oxygen 40 liters/min (2) Acute encephalopathy: Plan: Etiology is uncertain, EEG showed disorganized background with slowing but no epileptiform waves MRI did not show any acute pathology Neurologist on consult, (3) Gram-positive bacteremia: Plan: History of gram-positive bacteremia - CIVIL ENGINEER'S AIDE, S. haemolyticus, E facalis cultures on prior admit. Recurrent CIVIL ENGINEER'S AIDE bacteremia 01/12-01/13 vanc/dapto sensitive. Endograft at risk of infectious, but no clear infection during admit Repeat blood cultures pending Discharged on daptomycin started 01/12, patient did receive Zosyn 01/12 and 01/13. - Was recommended to complete 6 weeks of daptomycin, and dosing was increased to 10 mg/kg's for Enterococcus with DAYNA of 2. -Continue daptomycin for a total of 6 weeks (4) Acute UTI: Plan: urine cultures growing Klebsiella Oxytoca Continue ceftriaxone (5) Atrial fibrillation: Plan: History of A-fib, recent cardiopulmonary arrest DOAC converted to heparin while inpatient and critically ill Admitting EKG normal sinus rhythm without territorial signs of ischemia Following contrast exposure despite premedication at prior hospitalization. Likely 2/2 critical illness, but cannot exclude contrast allergy. Patient is anticoagulated so risk of PE is low, will convert apixaban to heparin while (6) CAROLINA (acute kidney injury): Plan: CAROLINA, transient HD dependence CAROLINA with bilateral renal infarcts and IV contrast administration at last hospitalization Last hemodialysis 01/14/2023, creatinine was stable at around 3.4 since Right IJ was removed 01/18/2023. No further dialysis was anticipated at that time No emergent indication for dialysis on admission - nephrology consulted Anemia Normocytic continue to monitor (7) GERD (gastroesophageal reflux disease): Plan: - PPI (8) Diabetes mellitus, type 2: Plan: ICU hyperglycemia per (9) CAD (coronary artery disease): Plan: - With history of stents Troponin is downtrending from prior, 27.5. Trended. No ischemic findings on EKG, (10) Malnutrition: Plan: continue tube feeds Plan DVT prophylaxis: On heparin Diet: N.p.o. Disposition: ICU CODE STATUS: Full code, family is discussing whether patient would want to convert to DNR/DNI given current circumstance Admission and Anticipated Discharge Date Admission Date: January 22, 2023 Subjective Patient is confused. Review of Systems Review of Systems: All systems reviewed & are unremarkable except as noted in HPI & below Physical Exam Physical Exam: Patient is now extubated, resting. HEENT--PERRL, EOMI Neck--supple. No JVD Heart--normal S1 and S2. No murmurs, rubs or gallops. Lungs--rhonchi Abdomen--normal bowel sounds and soft. Mild epigastric and left sided abdominal pain Extremities--no cyanosis or clubbing. No edema. Dermatologic--normal skin turgor, normal color, no abnormal lymph nodes, no rash. Rheumatologic--normal range of motion Results & Data Results & Data Vital Signs (Past 12 Hours) Vital Signs Temp Pulse Pulse Resp BP Pulse Ox O2 Del Method 01/29/23 19:59 94 H 24 98 High Flow Nasal Cannula 01/29/23 18:01 83 146/80 H 01/29/23 18:01 37.5 C 83 34 H 146/80 H 96 High Flow Nasal Cannula 01/29/23 17:48 37.5 C 105 H 31 H 165/79 H 95 High Flow Nasal Cannula 01/29/23 17:47 105 H 165/79 H 01/29/23 17:01 37.5 C 103 H 34 H 158/107 H 98 High Flow Nasal Cannula 01/29/23 15:47 104 H 28 H 98 High Flow Nasal Cannula 01/29/23 15:01 37.6 C H 96 H 35 H 129/79 97 High Flow Nasal Cannula 01/29/23 14:00 37.4 C 96 H 33 H 156/92 H 98 High Flow Nasal Cannula 01/29/23 13:00 37.4 C 92 H 31 H 154/95 H 98 High Flow Nasal Cannula 01/29/23 12:00 37.7 C H 89 36 H 160/83 H 95 High Flow Nasal Cannula 01/29/23 11:48 37.6 C H 86 34 H 166/79 H 97 High Flow Nasal Cannula 01/29/23 11:48 87 166/79 H 01/29/23 11:33 104 H 167/96 H 01/29/23 11:18 37.8 C H 101 H 41 H 167/96 H 98 High Flow Nasal Cannula 01/29/23 11:01 37.8 C H 97 H 35 H 157/117 H 97 High Flow Nasal Cannula 01/29/23 10:32 99 H 28 H 96 High Flow Nasal Cannula 01/29/23 10:00 37.8 C H 100 H 37 H 157/101 H 92 High Flow Nasal Cannula O2 Flow Rate FiO2 01/29/23 19:59 40 40 01/29/23 18:01 01/29/23 18:01 40 40 01/29/23 17:48 40 40 01/29/23 17:47 01/29/23 17:01 40 40 01/29/23 15:47 40 40 01/29/23 15:01 40 40 01/29/23 14:00 40 45 01/29/23 13:00 40 45 01/29/23 12:00 40 40 01/29/23 11:48 40 40 01/29/23 11:48 01/29/23 11:33 01/29/23 11:18 40 40 01/29/23 11:01 40 40 01/29/23 10:32 40 40 01/29/23 10:00 40 35 PG Care Time/CCT Total # of Minutes Spent Total Time Spent with Patient: Total time spent is greater than 50% in coordination of care (as documented) at patient's floor/unit and/or counseling patient: Coding Level of Care Code 89832 SUB INP/OBS CARE 2/35MIN Diagnoses Acute respiratory failure with hypoxia J96.01 Acute encephalopathy G93.40 Gram-positive bacteremia R78.81 Acute UTI N39.0 Atrial fibrillation I48.91 [place] (acute kidney injury) N17.9 GERD (gastroesophageal reflux disease) K21.9 Type 2 diabetes mellitus with other circulatory complication, without long-term current use of insulin E11.59 Diabetes mellitus complication detail: with other circulatory complications Diabetes mellitus complication status: with circulatory complication Diabetes mellitus bed bug exterminator insulin use: without bed bug exterminator use Coronary artery disease involving [place] coronary artery of [place] heart without angina pectoris I25.10 Associated angina: without angina Coronary Disease-Associated Artery/Lesion type: [place] artery [place] vs. transplanted heart: [place] heart Malnutrition E46 (8) Diabetes mellitus, type 2 Diabetes mellitus complication detail: with other circulatory complications Diabetes mellitus complication status: with circulatory complication Diabetes mellitus prison insulin use: without prison use Qualified Code(s): E11.59 - Type 2 diabetes mellitus with other circulatory complications (9) CAD (coronary artery disease) Associated angina: without angina Coronary Disease-Associated Artery/Lesion type: [place] artery [place] vs. transplanted heart: [place] heart Qualified Code(s): I25.10 - Atherosclerotic heart disease of [place] coronary artery without angina pectoris
[2023-01-30 04:02] LABS: Basophils # (auto) 0.03 K/uL (0.00-0.20); Basophils % (auto) 0.4 %; Eosinophils # (auto) 0.25 K/uL (0.00-0.50); Eosinophils % (auto) 3.6 %; Hematocrit (blood only) 24.8 % (42.0-52.0); Hemoglobin 7.5 g/dl (14.0-18.0); Immature Granulocytes # (auto) 0.02 K/uL (0.01-0.20); Immature Granulocytes % (auto) 0.3 %; Lymphocytes # (auto) 1.36 K/uL (1.20-3.40); Lymphocytes % (auto) 19.7 %; Mean Corpuscular Hemoglobin 28.1 pg (25.0-34.0); Mean Corpuscular Hgb Conc 30.2 g/dL (32.0-36.0); Mean Corpuscular Volume 92.9 fL (80.0-100.0); Mean Platelet Volume 10.7 fL (9.4-12.4); Monocytes # (auto) 0.53 K/uL (0.11-0.59); Monocytes % (auto) 7.7 %; Neutrophils # (auto) 4.73 K/uL (1.40-6.50); Neutrophils % (auto) 68.3 %; Platelet Count 220 K/uL (130-400); RDW Coefficient of Variation 14.5 % (11.5-14.5); RDW Standard Deviation 48.8 fL (36.4-46.3); Red Blood Count 2.67 M/uL (4.70-6.10); White Blood Count 6.92 K/ul (4.8-10.8)
[2023-01-30 04:13] LABS: Calcium 8.9 mg/dl (8.6-10.3); Creatinine Clr Calc Pharmacy 30.9 ml/min; Est GFR (Non-African American) 27.6 ml/min; Magnesium 2.1 mg/dl (1.7-2.4); Phosphorus 5.4 mg/dl (2.5-4.9); Potassium 4.3 mmol/L (3.5-5.1)
[2023-01-30 05:05] LABS: Partial Thromboplastin Ratio 1.6
[2023-01-30 05:17] LABS: Partial Thromboplastin Time 44.1 Seconds (21.0-31.0)
[2023-01-30 05:22] LABS: Basophilic Stippling 1+; Hypochromasia Present
[2023-01-30] MEDS: INSULIN ASPART PER UNIT CHARGE SC SCH ×3 (06:18→18:08)
[2023-01-30] MEDS: METOPROLOL TARTRATE 1 MG/ML VIAL IV SCH ×5 (06:20→23:48)
--- NOTE | 2023-01-30 07:32 | XRay Report ---
XR chest 1V portable HISTORY: Resp failure COMPARISON: 01/29/2023. FINDINGS: A right PICC terminates in the distal SVC. A thoracic aortic stent is again noted. No pneum othorax. The heart remains borderline enlarged. No pleural effusions. No new focal lung consolidation s to suggest a pneumonia. Bibasilar airspace opacities have improved. IMPRESSION: Interval improvement in the bibasilar airspace opacities. ACT 112: Negative or not required by law. Electronically signed by: Alvarado Bo M.D. 01/30/2023 7:31 AM
[2023-01-30] MEDS: MEROPENEM 500 MG in SYRINGE 0 ML IV SCH ×3 (07:33→23:40)
--- NOTE | 2023-01-30 08:47 | Intensivist Progress Note ---
Date of Service January 30, 2023 Assessment & Plan (1) Acute renal disease: (2) Endotracheally intubated: (3) Complicated UTI (urinary tract infection): (4) Uremia: (5) Acute encephalopathy: (6) Acute respiratory failure with hypoxia: (7) Acute UTI: (8) AMS (altered mental status): (9) Acute respiratory failure with hypoxia and hypercarbia: (10) Gram-positive bacteremia: (11) Anemia: (12) Pseudoaneurysm of femoral artery following procedure: Plan 72-year-old male who was discharged from the hospital 01/21/2023 due to gram- positive cocci bacteremia, respiratory arrest and [place] is now readmitted due to altered mental status and hypoxemia. Neurologic: brain MRI/CT negative. EEG negative. neurology consult appreciated. much improved since admission. Pulmonary: 01/23/2023 intubated 01/28 extubated Doing well. has a good cough but not effectively clearing oral secretions. Will monitor closely with supportive care. Cardiovascular: history of thoracic aortic aneurysm repair and dilation of the thoracic aorta to 5.1 cm. Echo 01/13/2023 with mild concentric LVH and normal LV function. Normal RV function. Continue heparin drip for atrial fibrillation and prior DVT. Hypertensive, increase lopressor to q4h. Gastrointestinal: Protonix 40 mg twice daily. Renal: Recent admission with [place]. Underwent hemodialysis during his last admission due to [place] secondary to bilateral renal infarcts and IV contrast. Notably, he also had bilateral renal artery stenting at [facility] 12/23/2022. Creatinine improving along with BUN. renl signed off. Monitor urine output closely which appears adequate at this time. Patient also with a history of renal cell carcinoma status post partial nephrectomy in 2015 Infectious disease: UCx 01/22/2023 klebsiella Sputum Cx serratia vanc and meropenem d4 afebrile x 24 hours. CXR today improved. ID consult much appreciated. Hematologic: Patient with severe anemia at baseline. Status post 1 unit packed RBCs 01/22/2023. Continue to monitor. . Lines and tubes: Right single-lumen PICC line in place from recent hospitalization. Acosta catheter in place (01/22/2023). 18-gauge peripheral IV in the left antecubital fossa. VTE prophylaxis: SCDs, heparin drip speech evaluation. PT/OT. CODE STATUS: Full I have personally spent 48 minutes of critical care time in the direct management of this patient. This is a life/limb threatening event. This includes time spent evaluating patient, direct bedside care, chart review, placing orders, interpretation of diagnostic studies, discussion with consultants, patient, and family members, as well as other required patient management activities. This time is exclusive of all separately billable procedures, and teaching time and separate from and in addition to any other critical care service time. Discussed with RN. Spoke with son at bedside. Admission and Anticipated Discharge Date Admission Date: January 22, 2023 Subjective no events overnight. Hypertensive. Physical Exam Constitutional: cooperative and comfortable Respiratory: Auscultation: + rhonchi Cardiovascular: Rate/Rhythm: regular rate and regular rhythm Skin: no rashes, warm and dry Neurologic: CN's II-XI intact bilaterally and awake Psychiatric: Orientation: alert Results & Data Results & Data Vital Signs (Past 12 Hours) Vital Signs Temp Pulse Pulse Resp BP Pulse Ox O2 Del Method 01/30/23 08:00 37.5 C 96 H 36 H 169/90 H 97 High Flow Nasal Cannula 01/30/23 07:30 93 H 29 H 97 High Flow Nasal Cannula 01/30/23 07:15 High Flow Nasal Cannula 01/30/23 07:00 37.6 C H 93 H 35 H 166/89 H 99 High Flow Nasal Cannula 01/30/23 06:35 87 166/96 H 01/30/23 06:20 102 H 177/104 H 01/30/23 06:00 177/104 H 01/30/23 06:00 37.5 C 106 H 27 H 97 01/30/23 05:15 168/101 H 01/30/23 05:15 37.5 C 103 H 25 H 95 01/30/23 05:01 37.5 C 105 H 29 H 94 01/30/23 05:01 193/99 H 01/30/23 05:00 37.5 C 104 H 33 H 96 01/30/23 04:55 105 H 26 H 97 High Flow Nasal Cannula 01/30/23 04:04 37.5 C 103 H 37 H 98 01/30/23 04:04 172/99 H 01/30/23 04:00 183/109 H 01/30/23 04:00 37.5 C 100 H 33 H 97 01/30/23 03:00 37.5 C 95 H 31 H 98 01/30/23 02:01 153/98 H 01/30/23 02:01 37.4 C 96 H 33 H 100 01/30/23 02:00 37.4 C 96 H 34 H 98 01/30/23 01:11 167/84 H 01/30/23 01:11 37.4 C 93 H 31 H 95 01/30/23 01:09 37.4 C 93 H 36 H 98 01/30/23 01:09 187/107 H 01/30/23 01:00 37.4 C 92 H 27 H 98 01/30/23 01:00 177/93 H 01/30/23 00:35 157/100 H 01/30/23 00:35 37.4 C 89 31 H 98 01/30/23 00:05 87 160/91 H 01/30/23 00:00 161/97 H 01/30/23 00:00 37.3 C 86 32 H 97 01/30/23 00:00 98 H 01/29/23 23:47 37.3 C 101 H 27 H 97 01/29/23 23:47 160/104 H 01/29/23 23:47 101 H 160/104 H 01/29/23 23:09 101 H 22 99 High Flow Nasal Cannula 01/29/23 23:00 158/126 H 01/29/23 23:00 37.3 C 100 H 30 H 98 01/29/23 22:00 160/93 H 01/29/23 22:00 37.4 C 101 H 29 H 97 01/29/23 21:00 37.4 C 97 H 26 H 98 01/29/23 21:00 157/95 H O2 Flow Rate FiO2 01/30/23 08:00 40 35 01/30/23 07:30 40 35 01/30/23 07:15 40 35 01/30/23 07:00 35 40 01/30/23 06:35 01/30/23 06:20 01/30/23 06:00 01/30/23 06:00 01/30/23 05:15 01/30/23 05:15 01/30/23 05:01 01/30/23 05:01 01/30/23 05:00 01/30/23 04:55 40 35 01/30/23 04:04 01/30/23 04:04 01/30/23 04:00 01/30/23 04:00 01/30/23 03:00 01/30/23 02:01 01/30/23 02:01 01/30/23 02:00 01/30/23 01:11 01/30/23 01:11 01/30/23 01:09 01/30/23 01:09 01/30/23 01:00 01/30/23 01:00 01/30/23 00:35 01/30/23 00:35 01/30/23 00:05 01/30/23 00:00 01/30/23 00:00 01/30/23 00:00 01/29/23 23:47 01/29/23 23:47 01/29/23 23:47 01/29/23 23:09 40 35 01/29/23 23:00 01/29/23 23:00 01/29/23 22:00 01/29/23 22:00 01/29/23 21:00 01/29/23 21:00 PG Care Time/CCT Total # of Minutes Spent Total Time Spent with Patient: Total time spent is greater than 50% in coordination of care (as documented) at patient's floor/unit and/or counseling patient: Coding Level of Care Code 28017 CRITICAL CARE 1ST 30-74M Diagnoses Acute renal disease N28.9 Endotracheally intubated Z97.8 Complicated UTI (urinary tract infection) N39.0 Uremia N19 Acute encephalopathy G93.40 Acute respiratory failure with hypoxia J96.01 Acute UTI N39.0 AMS (altered mental status) R41.0 Altered mental status type: disorientation Acute respiratory failure with hypoxia and hypercarbia J96.01; J96.02 Gram-positive bacteremia R78.81 Anemia due to chronic kidney disease, unspecified CKD stage N18.9; D63.1 Anemia type: due to chronic kidney disease Chronic kidney disease stage: unspecified stage Pseudoaneurysm of femoral artery following procedure T81.718A; I72.4 (8) AMS (altered mental status) Altered mental status type: disorientation Qualified Code(s): R41.0 - Disorientation, unspecified (11) Anemia Anemia type: due to chronic kidney disease Chronic kidney disease stage: unspecified stage Qualified Code(s): N18.9 - Chronic kidney disease, unspecified; D63.1 - Anemia in chronic kidney disease
[2023-01-30] MEDS: PANTOprazole 40 MG in SYRINGE 0 ML IV SCH (10:17)
[2023-01-30] MEDS: CLOPIDOGREL BISULFATE 75 MG TAB PO SCH (10:19)
[2023-01-30] MEDS: ASPIRIN 81 MG CHEW PO SCH (10:19)
[2023-01-30] MEDS: FLUTICASONE/VILANTEROL 100/25MCG 14 PUFFS/INHALER INH SCH (10:20)
--- NOTE | 2023-01-30 11:36 | Pharmacy Report ---
Pharmacy PK ABX Note - Date of Service January 30, 2023 - Assessment and Plan Assessment 01/30: * Random level this morning was 18.7 after 500mg dose yesterday. Scr improved somewhat today (2.55-2.27). Will redose with 750mg X 1 today and recheck a random level in the morning. 01/26 bcx and sputum cx no growth to date. Await ID input tomorrow regarding total duration of therapy. 01/29: * Random level this morning was 22.1 with no redosing yesterday. Will redose with 500mg X 1 today and recheck a random level in the morning. 01/26 bcx and sputum cx no growth to date, but patient continues to spike fevers. 01/28: Vancomycin was discontinued after the 01/25 dose and switched back to daptomycin. Cefepime de-escalated to ceftriaxone. Patient with persistent fevers since de-escalation and was changed back to vancomycin + meropenem on the . Patient received a 2000 mg dose at 1621 on 01/27. Random level this morning 29.0. Patient should be therapeutic through tomorrow AM, will not redose today. Random level in AM to assist with dosing. 01/25: * Sputum speciated to pollard sensitive serratia. I suspect cefepime could be de- escalated to ceftriaxone but would defer to ID. * SCr improved again today 2.99->2.74 * Level this morning was 21.3. * Will continue to dose by levels until renal function stabilizes. * Will repeat a reduced dose of vanc today at noon and get another level with AM labs. 01/24 * Cefepime adjusted to zosyn yesterday * SCr continues to downtrend but will continue to dose by levels * Level 21.1 mcg/mL this AM- will give additional 1x dose later today * Await ID consult for further recommendations 01/23 * 72 yo male who was discharged from the hospital 01/21/2023 due to MRSE and E. faecalis bacteremia on daptomycin, respiratory arrest and [place]. Readmitted 01/22 due to altered mental status and hypoxemia, currently being treated for bacteremia, HAP, and UTI * Dapto switched to vanco for better pulmonary coverage * Cefepime started * ID consulted * Unclear what new baseline SCr may be after recent [place]. SCr is trending down today to 3.4. Will dose vancomycin via level. * Level of 16.1 mcg/mL this AM likely therapeutic. Will give additional one- time dose of vancomycin today and repeat random level tomorrow AM Plan Vancomycin * 750mg X 1 today * Random level in AM Pharmacy will continue to follow and will adjust dose/frequency as necessary. Thank you. Pharmacy has transitioned to AUC monitoring for vancomycin. AUC/DAYNA is the preferred PK/PD target and is associated with decreased risk of nephrotoxicity compared to traditional trough targets.
[2023-01-30] MEDS ORDERED: VANCOMYCIN HCL 750 MG in SODIUM CHLORIDE 0.9% 250 ML IV SCH (12:00)
[2023-01-30] MEDS ORDERED: hydrALAZINE HCL 20 MG/ML VIAL IV PRN (13:18)
[2023-01-30] MEDS: ACETAMINOPHEN 1,000 MG/100 ML VIAL IV PRN (15:50)
[2023-01-30] MEDS ORDERED: RAPID SEQUENCE INDUCTION BAG ONE (16:23)
[2023-01-30] MEDS ORDERED: PROPOFOL IV EMULSION 10 MG/ML 100 ML VIAL IV ONE (16:26)
[2023-01-30] MEDS ORDERED: NOREPINEPHRINE/D5W 4 MG/250 ML IV ONE (16:35)
[2023-01-30] MEDS: propofoL 1,000 MG/100 ML VIAL IV SCH ×2 (16:37→23:04)
[2023-01-30] MEDS: NOREPINEPHRINE/D5W 4 MG/250 ML PLCT IV SCH (16:38)
[2023-01-30] MEDS ORDERED: PROPOFOL BOLUS FROM BAG IV PRN (16:59)
[2023-01-30] MEDS ORDERED: STAT IV Infusion **Titration per Protocol STA (16:59)
[2023-01-30] MEDS ORDERED: SODIUM CHLORIDE 0.9% 1,000 ML IV ONE (17:00)
--- NOTE | 2023-01-30 17:02 | Hospitalist Progress Note ---
Date of Service January 30, 2023 Assessment & Plan (1) Acute respiratory failure with hypoxia: Plan: Acute hypoxic respiratory failure Presents on nonrebreather SPO2 sats in the 70s with increased tachypnea ABG revealed respiratory acidosis, patient intubated and started on broad- spectrum antibiotic after he failed BiPAP - CTchest: No consolidation suggestive of pneumonia. Emphysema. Moderate secretions of the trachea and mainstem bronchi, No leukocytosis, procalcitonin elevated Continue Ceftriaxone and daptomycin per ID -Sputum cultures growing Serratia Patient was recently admitted to this facility with generalized weakness, after patient had a endovascular graft for aortic aneurysm, and other facility, the course was complicated with persistent gram-positive bacteremia, cardiopulmonary arrest, patient discharged to rehab facility after PICC line placed on 6 weeks course of treatment with daptomycin -Extubated on 01/28 -Family meeting with palliative completed 01/28 Once patient is more improved, will have discussion with patient regarding his goals of care. Since extubation patient has been on more oxygen. (2) Acute encephalopathy: Plan: Etiology is uncertain, EEG showed disorganized background with slowing but no epileptiform waves MRI did not show any acute pathology Neurologist on consult, (3) Gram-positive bacteremia: Plan: History of gram-positive bacteremia - [employer], S. haemolyticus, E facalis cultures on prior admit. Recurrent [employer] bacteremia 01/12-01/13 vanc/dapto sensitive. Endograft at risk of infectious, but no clear infection during admit Repeat blood cultures pending Discharged on daptomycin started 01/12, patient did receive Zosyn 01/12 and 01/13. - Was recommended to complete 6 weeks of daptomycin, and dosing was increased to 10 mg/kg's for Enterococcus with DAYNA of 2. -Continue daptomycin for a total of 6 weeks (4) Acute UTI: Plan: urine cultures growing Klebsiella Oxytoca Continue ceftriaxone (5) Atrial fibrillation: Plan: History of A-fib, recent cardiopulmonary arrest DOAC converted to heparin while inpatient and critically ill Admitting EKG normal sinus rhythm without territorial signs of ischemia Following contrast exposure despite premedication at prior hospitalization. Likely 2/2 critical illness, but cannot exclude contrast allergy. Patient is anticoagulated so risk of PE is low, will convert apixaban to heparin while (6) [place] (acute kidney injury): Plan: [place], transient HD dependence [place] with bilateral renal infarcts and IV contrast administration at last hospitalization Last hemodialysis 01/14/2023, creatinine was stable at around 3.4 since Right IJ was removed 01/18/2023. No further dialysis was anticipated at that time No emergent indication for dialysis on admission - nephrology consulted Anemia Normocytic continue to monitor (7) GERD (gastroesophageal reflux disease): Plan: - PPI (8) Diabetes mellitus, type 2: Plan: ICU hyperglycemia per (9) CAD (coronary artery disease): Plan: - With history of stents Troponin is downtrending from prior, 27.5. Trended. No ischemic findings on EKG, (10) Malnutrition: Plan: continue tube feeds Plan DVT prophylaxis: On heparin Disposition: ICU CODE STATUS: Full code, family is discussing whether patient would want to convert to DNR/DNI given current circumstance Admission and Anticipated Discharge Date Admission Date: January 22, 2023 Subjective 72 yo male continues to be on high flow. Review of Systems Review of Systems: All systems reviewed & are unremarkable except as noted in HPI & below Physical Exam Physical Exam: Patient is now extubated, resting. HEENT--PERRL, EOMI Neck--supple. No JVD Heart--normal S1 and S2. No murmurs, rubs or gallops. Lungs--rhonchi Abdomen--normal bowel sounds and soft. Mild epigastric and left sided abdominal pain Extremities--no cyanosis or clubbing. No edema. Dermatologic--normal skin turgor, normal color, no abnormal lymph nodes, no rash. Rheumatologic--normal range of motion Results & Data Results & Data Vital Signs (Past 12 Hours) Vital Signs Temp Pulse Pulse Resp BP Pulse Ox O2 Del Method 01/30/23 16:54 100 H 20 96 01/30/23 16:00 38.0 C H 108 H 42 H 161/93 H 91 High Flow Nasal Cannula 01/30/23 15:46 105 H 172/96 H 01/30/23 15:45 37.9 C H 104 H 41 H 172/96 H 91 High Flow Nasal Cannula 01/30/23 15:31 37.9 C H 124 H 42 H 188/106 H 90 High Flow Nasal Cannula 01/30/23 15:30 124 H 188/106 H 01/30/23 15:02 37.9 C H 124 H 38 H 175/126 H 95 BiPAP 01/30/23 15:00 127 H 39 H 98 01/30/23 14:01 37.8 C H 109 H 41 H 176/98 H 93 High Flow Nasal Cannula 01/30/23 13:47 37.8 C H 104 H 40 H 175/100 H 94 High Flow Nasal Cannula 01/30/23 13:13 37.7 C H 102 H 37 H 174/101 H 91 High Flow Nasal Cannula 01/30/23 13:00 37.7 C H 103 H 39 H 180/98 H 92 High Flow Nasal Cannula 01/30/23 12:05 93 H 177/87 H 01/30/23 12:00 37.6 C H 91 H 30 H 177/87 H 92 High Flow Nasal Cannula 01/30/23 11:54 37.6 C H 106 H 37 H 175/99 H 92 High Flow Nasal Cannula 01/30/23 11:54 106 H 175/99 H 01/30/23 11:04 104 H 31 H 94 High Flow Nasal Cannula 01/30/23 11:00 37.6 C H 103 H 38 H 161/97 H 96 High Flow Nasal Cannula 01/30/23 10:00 37.6 C H 105 H 28 H 158/95 H 93 High Flow Nasal Cannula 01/30/23 09:38 37.6 C H 105 H 28 H 163/90 H 98 High Flow Nasal Cannula 01/30/23 08:00 37.5 C 96 H 36 H 169/90 H 97 High Flow Nasal Cannula 01/30/23 07:30 93 H 29 H 97 High Flow Nasal Cannula 01/30/23 07:15 High Flow Nasal Cannula 01/30/23 07:00 37.6 C H 93 H 35 H 166/89 H 99 High Flow Nasal Cannula 01/30/23 06:35 87 166/96 H 01/30/23 06:20 102 H 177/104 H 01/30/23 06:00 177/104 H 01/30/23 06:00 37.5 C 106 H 27 H 97 01/30/23 05:15 168/101 H 01/30/23 05:15 37.5 C 103 H 25 H 95 01/30/23 05:01 37.5 C 105 H 29 H 94 01/30/23 05:01 193/99 H 01/30/23 05:00 37.5 C 104 H 33 H 96 O2 Flow Rate FiO2 01/30/23 16:54 40 01/30/23 16:00 45 30 01/30/23 15:46 01/30/23 15:45 45 30 01/30/23 15:31 45 30 01/30/23 15:30 01/30/23 15:02 01/30/23 15:00 40 01/30/23 14:01 40 40 01/30/23 13:47 40 40 01/30/23 13:13 40 40 01/30/23 13:00 40 40 01/30/23 12:05 01/30/23 12:00 40 30 01/30/23 11:54 40 30 01/30/23 11:54 01/30/23 11:04 40 30 01/30/23 11:00 40 30 01/30/23 10:00 40 30 01/30/23 09:38 40 30 01/30/23 08:00 40 30 01/30/23 07:30 40 35 01/30/23 07:15 40 35 01/30/23 07:00 40 35 01/30/23 06:35 01/30/23 06:20 01/30/23 06:00 01/30/23 06:00 01/30/23 05:15 01/30/23 05:15 01/30/23 05:01 01/30/23 05:01 01/30/23 05:00 PG Care Time/CCT Total # of Minutes Spent Total Time Spent with Patient: Total time spent is greater than 50% in coordination of care (as documented) at patient's floor/unit and/or counseling patient: Coding Level of Care Code 24459 SUB INP/OBS CARE 2/35MIN Diagnoses Acute respiratory failure with hypoxia J96.01 Acute encephalopathy G93.40 Gram-positive bacteremia R78.81 Acute UTI N39.0 Atrial fibrillation I48.91 [place] (acute kidney injury) N17.9 GERD (gastroesophageal reflux disease) K21.9 Type 2 diabetes mellitus with other circulatory complication, without long-term current use of insulin E11.59 Diabetes mellitus mental health aide insulin use: without nursing home use Diabetes mellitus complication status: with circulatory complication Diabetes mellitus complication detail: with other circulatory complications Coronary artery disease involving [place] coronary artery of [place] heart without angina pectoris I25.10 Coronary Disease-Associated Artery/Lesion type: [place] artery [place] vs. transplanted heart: [place] heart Associated angina: without angina Malnutrition E46 (8) Diabetes mellitus, type 2 Diabetes mellitus mental health aide insulin use: without mental health aide use Diabetes mellitus complication status: with circulatory complication Diabetes mellitus complication detail: with other circulatory complications Qualified Code(s): E11.59 - Type 2 diabetes mellitus with other circulatory complications (9) CAD (coronary artery disease) Coronary Disease-Associated Artery/Lesion type: [place] artery [place] vs. transplanted heart: [place] heart Associated angina: without angina Qualified Code(s): I25.10 - Atherosclerotic heart disease of [place] coronary artery without angina pectoris
--- NOTE | 2023-01-30 17:41 | XRay Report ---
XR chest 1V portable CLINICAL HISTORY: intubation COMPARISON STUDY: Chest CT January 22, 2023. Chest radiograph January 30, 2023 at 7:03 AM. FINDINGS: Tip of endotracheal tube is 5.1 cm above the gerson. Tip of nasogastric tube is at least wi thin the body of the stomach. There is no pneumothorax. Thoracic and abdominal aortic endovascular st ent grafts are incidentally noted. Cardiomediastinal silhouette is stable. There is mild left basilar opacity. Right PICC remains in place. There is no pneumothorax. Suspected trace bilateral pleural ef fusions. IMPRESSION: 1. Tip of endotracheal tube 5.1 cm above the gerson. 2. Mild left basilar opacity. Trace bilateral pleural effusions. ACT 112: Negative or not required by law. Electronically signed by: Peterson Hart M.D. 01/30/2023 5:39 PM
--- NOTE | 2023-01-30 18:11 | Procedure Note ---
Procedure Note Date of Service January 30, 2023 Note I wore a surgical cap, mask, gown and gloves throughout the procedure. The patient was placed on a ekg monitor including continuous pulse oximetry. Rapid Sequence Intubation was conducted. The patient received 50 mcg of fentany l and 80mg of propofol. Using a size 3 glidescope and a size 7.5 endotracheal tube with stylet, the patient was intubated on the first attempt. The stylet was removed and cuff balloon was inflated. Appropriate endotracheal tube position was confirmed by direct visualization of vocal cord passage, fogging of the tube, CO2 colormetric indicator and symmetric breath sounds. The tube was secured at 23cm at the lips. Post intubation chest x-ray showed appropriate placement. Coding
[2023-01-30] MEDS: HEPARIN SODIUM/DEXTROSE 25,000 UNITS/500 ML BAG IV SCH (18:17)
[2023-01-30] MEDS: NOVASOURCE RENAL 2.0 CAL 1000ML BAG OG SCH (18:20)
[2023-01-31] MEDS: INSULIN ASPART PER UNIT CHARGE SC SCH ×4 (00:38→18:08)
[2023-01-31] MEDS: METOPROLOL TARTRATE 1 MG/ML VIAL IV SCH ×5 (03:40→20:49)
[2023-01-31 04:42] LABS: Basophils # (auto) 0.02 K/uL (0.00-0.20); Basophils % (auto) 0.3 %; Eosinophils # (auto) 0.32 K/uL (0.00-0.50); Eosinophils % (auto) 4.4 %; Hemoglobin 7.3 g/dl (14.0-18.0); Immature Granulocytes # (auto) 0.03 K/uL (0.01-0.20); Immature Granulocytes % (auto) 0.4 %; Lymphocytes # (auto) 1.66 K/uL (1.20-3.40); Lymphocytes % (auto) 22.8 %; Mean Corpuscular Hemoglobin 28.2 pg (25.0-34.0); Mean Corpuscular Hgb Conc 30.4 g/dL (32.0-36.0); Mean Corpuscular Volume 92.7 fL (80.0-100.0); Mean Platelet Volume 10.6 fL (9.4-12.4); Monocytes # (auto) 0.52 K/uL (0.11-0.59); Monocytes % (auto) 7.1 %; Neutrophils # (auto) 4.73 K/uL (1.40-6.50); Platelet Count 254 K/uL (130-400); RDW Coefficient of Variation 14.6 % (11.5-14.5); RDW Standard Deviation 48.6 fL (36.4-46.3); Red Blood Count 2.59 M/uL (4.70-6.10); White Blood Count 7.28 K/ul (4.8-10.8)
[2023-01-31 05:05] LABS: Calcium 8.7 mg/dl (8.6-10.3); Magnesium 2.2 mg/dl (1.7-2.4)
[2023-01-31 05:08] LABS: Anisocytosis Present; Polychromasia 1+
[2023-01-31 05:15] LABS: Partial Thromboplastin Ratio 1.4
[2023-01-31 06:04] LABS: Partial Thromboplastin Time 40.4 Seconds (21.0-31.0)
[2023-01-31 07:12] LABS: Creatinine Clr Calc Pharmacy 30.3 ml/min; Est GFR (African American) 29.4 ml/min; Est GFR (Non-African American) 25.4 ml/min
[2023-01-31] MEDS: ACETAMINOPHEN 1,000 MG/100 ML VIAL IV PRN ×2 (07:27→16:20)
[2023-01-31] MEDS: MEROPENEM 500 MG in SYRINGE 0 ML IV SCH ×3 (07:28→23:26)
--- NOTE | 2023-01-31 08:30 | Critical Care Progress Note ---
Date of Service January 31, 2023 Assessment & Plan (1) Acute renal disease: (2) Endotracheally intubated: (3) Complicated UTI (urinary tract infection): (4) Uremia: (5) Acute encephalopathy: (6) Acute respiratory failure with hypoxia: (7) Acute UTI: (8) AMS (altered mental status): (9) Acute respiratory failure with hypoxia and hypercarbia: (10) Gram-positive bacteremia: (11) Anemia: (12) Pseudoaneurysm of femoral artery following procedure: Plan Reason Critically Ill: 72-year-old male with ongoing altered mental status, persistent respiratory failure requiring endotracheal intubation, and bacteremia. NEURO - * CAM ICU: Unable to assess secondary to sedation * Altered mental status: * Patient has been extensively evaluated to this point including MRI and EEG. * Patient had done well off sedation in the past. We will remove sedation and de-escalate to lowest necessary dose. * Should be noted that patient's family reports the patient is extremely sensitive to medications in general. * Unfortunately, despite drug holidays and allowing significant time for the patient to clear, he is with persistent altered mental state. Apparently, at the time of extubation he was able to communicate somewhat with his children. Unfortunately, he appears significantly weak and unable to engage in respirations and airway clearing. CARDIAC/VASCULAR - * Recent thoracic aortic aneurysm repair: * Echo (01/13): EF 60-65% with LVH. RV Pressures assessed as normal. * Hypotension: * In the setting of sepsis and sedation medication. * Currently off pressors at this time. * History of A. Fib: * SR at this point. * Continue Metoprolol IV for now. * Heparin gtt. * Monitor on telemetry. RESPIRATORY - * Respiratory failure with hypoxia: * Patient initially intubated on 01/23/2023 in the setting of hypercapnic respiratory failure. The patient was with persistent altered mental status which did not allow appropriate ventilation. He was eventually liberated from the ventilator, but required reintubation within 48 hours of extubation. Patient was noted to have a weak cough and poor airway clearing at that time. Additionally, he failed high flow and BiPAP therapies. Unfortunately, given his failed attempt at liberation with the ventilator, ongoing mental status issues, and inability to liberate from the ventilator, the patient likely warrants tracheostomy placement if this would be in alignment with the patient's goals of care. Please see CODE STATUS GI/NUTRITION - * Tube feeds near goal. * Prophylaxis: Protonix RENAL/LYTES - * Recent CAROLINA: * Creatinine and electrolytes have stabilized at this point. * Nephrology has signed off. - * Acosta in place - Strict I&Os. ENDO - * DMII: * BSGs per unit protocol. ISS --> gtt per unit policy. HEME - * Anemia: * PRBCs x1 on 01/22/2023. ID - * Sepsis in the setting of Urine and/or respiratory: * Serratia in the sputum and Klebsiella in the urine. * Remains persistently febrile. * Appreciate ID guidance at antibiotic directed therapies. LINES/IV ACCESS - * PIVs x1 * RUE triple lumen PICC * Acosta * ETT * OGT DVT PROPHYLAXIS - * Heparin gtt * SCDs CODE STATUS - * 0921: Attempted to speak to the patient's daughter, Lucy. No answer. * 0922: Was able to speak to the patient's son, Jase. Provided update. Had an extensive conversation with him regarding ongoing management at this point. He hinted that his father would not wish to undergo tracheostomy placement, but deferred to further conversations with his sister. They are attempting to find paperwork to decide what his father's wishes might of been at that time. * 1118: Was able to speak with the patient's daughter, Lucy. Again, had an extensive conversation with the patient's daughter regarding current state of patient condition as well as processes moving forward. She is aware that her father did require reintubation and remains on the ventilator. We did discuss removing sedation at this time to see if we can notice any improvement from a mental status perspective as well as from a respiratory standpoint. Additionally, I did broach the subject of tracheostomy placement as the patient will likely require long-term ventilator management for weaning if that is in line with the patient's goals of care. I discussed the procedure a s well as the likely requirement of PEG tube and long-term acute care hospital stay after intervention. Urged Lucy and her brother Jase to have a conversation discussing patient's wishes moving forward. She mentioned that she had been in contact with palliative care and would wish to speak to them as well. I will reach out to palliative care medicine as she has established relationship with them previously. I will attempt to reach out to family again this afternoon to discuss plans moving forward. I have personally spent 55 minutes of critical care time in the direct management of this patient. This is a life/limb threatening event. This includes time spent evaluating patient, direct bedside care, chart review, placing orders, interpretation of diagnostic studies, discussion with consultants, patient, and family members, as well as other required patient management activities. This time is exclusive of all separately billable procedures, and teaching time and separate from and in addition to any other critical care service time. Thank you for allowing us to participate in the care of this patient. Please refer to my attending physician's documentation for any further recommendations. Admission and Anticipated Discharge Date Admission Date: January 22, 2023 Supervising Physician Co-Signing Physician Notes Patient seen and examined. EMR reviewed. Discussed with CHACHA and on multidisciplinary rounds. Agree with assessment plan as noted. Given the patient's deconditioned state and failure to manage secretions, if continued aggressive care is warranted, tracheostomy may be the best way to provide pulmonary toilet and prevent the patient from having additional respiratory compromise until he is able to get stronger. Unclear if this is an acceptable alternative to the patient's surrogate decision makers. Working on establishing medical proxy decision making team. For now continue supportive care. Subjective Patient seen and evaluated at bedside with nursing staff and attending. Patient is sedated with propofol and on the ventilator. Unable to contribute to subjective portion of note. Review of Systems Review of Systems: Unable to assess secondary to mental status. Physical Exam Physical Exam: VITAL SIGNS - Vital signs and nursing notes were reviewed. GENERAL - 72-year-old male appearing his stated age who is intubated and sedated. NOSE - Midline and without cyanosis. MOUTH/OROPHARYNX - ETT/OGT in place. NECK - Neck with FROM. LUNGS - Auscultation reveals coarse breath sounds and diminished at the bases. No wheezing appreciated. CARDIAC - RRR with S1/S2. No murmur, rubs, or gallops appreciated. ABDOMEN - Abdominal inspection demonstrates a flat abdomen. BS normoactive all four quadrants. No tenderness, palpable masses, or ascites noted. Results & Data Results & Data Vital Signs (Past 12 Hours) Vital Signs Temp Pulse Resp BP Pulse Ox O2 Del Method FiO2 01/31/23 08:27 105 H 95/55 L 01/31/23 07:48 92 H 20 97 40 01/31/23 07:30 38.2 C H 96 H 20 111/57 L 98 Mechanical Vent 40 01/31/23 07:15 38.1 C H 92 H 18 126/56 L 96 Mechanical Vent 40 01/31/23 07:00 38.1 C H 82 20 125/61 99 Mechanical Vent 40 01/31/23 07:00 40 01/31/23 06:45 38.1 C H 83 20 109/65 98 Mechanical Vent 40 01/31/23 06:00 89/47 L 01/31/23 06:00 37.9 C H 92 H 20 98 01/31/23 05:45 91/46 L 01/31/23 05:45 37.9 C H 93 H 20 99 01/31/23 05:30 93/50 L 01/31/23 05:30 37.8 C H 94 H 20 99 01/31/23 05:15 37.7 C H 97 H 20 99 01/31/23 05:15 96/53 L 01/31/23 05:00 99/57 L 01/31/23 05:00 37.7 C H 99 H 20 97 01/31/23 04:45 102/56 L 01/31/23 04:45 37.7 C H 101 H 20 96 01/31/23 04:30 97/56 L 01/31/23 04:30 37.7 C H 100 H 20 96 01/31/23 04:15 99/57 L 01/31/23 04:15 37.6 C H 101 H 20 96 01/31/23 04:00 37.6 C H 92 H 20 98 01/31/23 04:00 123/60 01/31/23 04:00 40 01/31/23 03:45 102/61 01/31/23 03:45 37.6 C H 104 H 20 96 01/31/23 03:40 105 H 112/65 01/31/23 03:30 112/65 01/31/23 03:30 37.6 C H 108 H 21 96 01/31/23 03:15 37.5 C 112 H 21 96 01/31/23 03:15 112/59 L 01/31/23 03:15 108 H 21 96 40 01/31/23 03:00 111/70 01/31/23 03:00 37.4 C 119 H 20 99 01/31/23 02:46 124/65 01/31/23 02:46 37.4 C 113 H 21 95 01/31/23 02:45 37.3 C 114 H 21 95 01/31/23 02:30 136/64 01/31/23 02:30 37.6 C H 109 H 22 94 01/31/23 02:15 136/70 01/31/23 02:15 37.6 C H 109 H 22 92 01/31/23 02:00 135/70 01/31/23 02:00 37.6 C H 102 H 20 93 01/31/23 01:45 37.6 C H 80 20 99 01/31/23 01:30 124/65 01/31/23 01:30 37.6 C H 88 20 98 01/31/23 01:15 115/66 01/31/23 01:15 37.6 C H 90 20 98 01/31/23 01:00 125/64 01/31/23 01:00 37.6 C H 90 20 98 01/31/23 00:45 37.6 C H 90 20 98 01/31/23 00:45 119/63 01/31/23 00:30 37.6 C H 91 H 20 98 01/31/23 00:30 123/64 01/31/23 00:15 125/66 01/31/23 00:15 37.7 C H 89 20 98 01/31/23 00:00 37.7 C H 87 20 98 01/31/23 00:00 116/65 01/31/23 00:00 90 01/31/23 00:00 40 01/30/23 23:48 87 131/73 01/30/23 23:20 83 20 98 40 01/30/23 20:46 80 79/54 L Coding Level of Care Code 72313 CRITICAL CARE 1ST 30-74M Diagnoses Acute renal disease N28.9 Endotracheally intubated Z97.8 Complicated UTI (urinary tract infection) N39.0 Uremia N19 Acute encephalopathy G93.40 Acute respiratory failure with hypoxia J96.01 Acute UTI N39.0 AMS (altered mental status) R41.0 Altered mental status type: disorientation Acute respiratory failure with hypoxia and hypercarbia J96.01; J96.02 Gram-positive bacteremia R78.81 Anemia due to chronic kidney disease, unspecified CKD stage N18.9; D63.1 Anemia type: due to chronic kidney disease Chronic kidney disease stage: unspecified stage Pseudoaneurysm of femoral artery following procedure T81.718A; I72.4 (8) AMS (altered mental status) Altered mental status type: disorientation Qualified Code(s): R41.0 - Disorientation, unspecified (11) Anemia Anemia type: due to chronic kidney disease Chronic kidney disease stage: unspecified stage Qualified Code(s): N18.9 - Chronic kidney disease, unspecified; D63.1 - Anemia in chronic kidney disease
--- NOTE | 2023-01-31 08:42 | XRay Report ---
SINGLE VIEW CHEST CLINICAL HISTORY: Respiratory failure. FINDINGS: 2 AP, portable, upright chest radiographs are compared to study date 01/30/2023 and correla melissa with chest CT dictated 01/22/2023. The examination is degraded by portable technique, apical lord otic positioning, and patient rotation. An endotracheal tube and an enteric tube are unchanged in po sition. A right-sided PICC line is again noted. The heart is enlarged. The pulmonary vasculature is n oncongested. A stent graft is again seen in the thoracic aorta. Emphysema and chronic interstitial th ickening similar to previous. Mild left basilar opacities persist. No large pleural effusion or pneum othorax is identified. The skeletal structures are osteopenic. The bony thorax is grossly intact. IMPRESSION: 1. Stable lines and tubes. 2. Cardiomegaly and emphysema without radiographic evidence of congestive failure. 3. Left basilar opacities persist. Clinical correlation will be required and radiographic follow-up t o resolution is recommended. ACT 112: Negative or not required by law. Electronically signed by: Mando Alfonso M.D. 01/31/2023 8:41 AM
[2023-01-31] MEDS: FLUTICASONE/VILANTEROL 100/25MCG 14 PUFFS/INHALER INH SCH (08:47)
[2023-01-31] MEDS: CLOPIDOGREL BISULFATE 75 MG TAB PO SCH (08:47)
[2023-01-31] MEDS: ASPIRIN 81 MG CHEW PO SCH (08:47)
[2023-01-31] MEDS: PANTOprazole 40 MG in SYRINGE 0 ML IV SCH (08:48)
[2023-01-31] MEDS ORDERED: FUROSEMIDE 40 MG/4 ML VIAL IV ONE ×2 (10:00→22:45)
[2023-01-31] MEDS: TUBE FEEDING WATER FLUSH OG SCH ×4 (11:13→23:26)
[2023-01-31] MEDS: fentaNYL citrate PF 100 MCG/2 ML VIAL IV PRN (12:46)
[2023-01-31] MEDS: propofoL 1,000 MG/100 ML VIAL IV SCH ×2 (13:23→14:34)
[2023-01-31] MEDS: HEPARIN SODIUM/DEXTROSE 25,000 UNITS/500 ML BAG IV SCH (13:36)
[2023-01-31] MEDS ORDERED: STAT IV Infusion **Titration per Protocol STA (13:39)
[2023-01-31] MEDS: dexMEDEtomidine 200 MCG/50 ML BAG IV SCH ×3 (13:54→18:29)
[2023-01-31 13:55] LABS: iSTAT Allen Test Pass; iSTAT Art Bld Gas pCO2 Correct 38 mmHg (35-46); iSTAT Art Bld Gas pH Corrected 7.421 (7.35-7.45); iSTAT Arterial Blood Gas HCO3 25 meg/L (19-24); iSTAT Arterial Blood Gas pCO2 37 mmHg (35-46); iSTAT Arterial Blood Gas pH 7.43 (7.35-7.45); iSTAT Arterial Blood Gas pO2 89 mmHg (80-95); iSTAT Arterial Blood Gas pO2 C 93; iSTAT Carbon Dioxide 26 mmol/L (24-31); iSTAT FiO2 40 %; iSTAT Hematocrit 21 % (42-52); iSTAT Hemoglobin 7.1 g/dl (14.0-18.0); iSTAT Potassium 3.9 mmol/L (3.3-5.0); iSTAT Site R Radial; iSTAT Sodium 143 mmol/L (135-144)
--- NOTE | 2023-01-31 14:32 | Pharmacy Report ---
Pharmacy PK ABX Note - Date of Service January 31, 2023 - Assessment and Plan Assessment 01/31: Random level 20.6 today after 750 mg dose yesterday. Will re-dose with 500mg X 1 and await ID recs for potential switch back to dapto. 01/30: * Random level this morning was 18.7 after 500mg dose yesterday. Scr improved somewhat today (2.55-2.27). Will redose with 750mg X 1 today and recheck a random level in the morning. 01/26 bcx and sputum cx no growth to date. Await ID input tomorrow regarding total duration of therapy. 01/29: * Random level this morning was 22.1 with no redosing yesterday. Will redose with 500mg X 1 today and recheck a random level in the morning. 01/26 bcx and sputum cx no growth to date, but patient continues to spike fevers. 01/28: Vancomycin was discontinued after the 01/25 dose and switched back to daptomycin. Cefepime de-escalated to ceftriaxone. Patient with persistent fevers since de-escalation and was changed back to vancomycin + meropenem on the . Patient received a 2000 mg dose at 1621 on 01/27. Random level this morning 29.0. Patient should be therapeutic through tomorrow AM, will not redose today. Random level in AM to assist with dosing. 01/25: * Sputum speciated to pollard sensitive serratia. I suspect cefepime could be de- escalated to ceftriaxone but would defer to ID. * SCr improved again today 2.99->2.74 * Level this morning was 21.3. * Will continue to dose by levels until renal function stabilizes. * Will repeat a reduced dose of vanc today at noon and get another level with AM labs. 01/24 * Cefepime adjusted to zosyn yesterday * SCr continues to downtrend but will continue to dose by levels * Level 21.1 mcg/mL this AM- will give additional 1x dose later today * Await ID consult for further recommendations 01/23 * 72 yo male who was discharged from the hospital 01/21/2023 due to MRSE and E. faecalis bacteremia on daptomycin, respiratory arrest and CAROLINA. Readmitted 01/22 due to altered mental status and hypoxemia, currently being treated for bacteremia, HAP, and UTI * Dapto switched to vanco for better pulmonary coverage * Cefepime started * ID consulted * Unclear what new baseline SCr may be after recent CAROLINA. SCr is trending down today to 3.4. Will dose vancomycin via level. * Level of 16.1 mcg/mL this AM likely therapeutic. Will give additional one- time dose of vancomycin today and repeat random level tomorrow AM Plan Vancomycin * 500mg X 1 today * Random level in AM Pharmacy will continue to follow and will adjust dose/frequency as necessary. Thank you. Pharmacy has transitioned to AUC monitoring for vancomycin. AUC/DAYNA is the preferred PK/PD target and is associated with decreased risk of nephrotoxicity compared to traditional trough targets.
[2023-01-31] MEDS ORDERED: VANCOMYCIN HCL 500 MG in NSS 100mL IV SCH (15:00)
--- NOTE | 2023-01-31 15:10 | Communication Note ---
Date of Service: January 31, 2023 [facility] Med Brief Note Case discussed with CCM and chart reviewed. He has been reintubated Dtr and son wanted to discuss options, I called her and [facility] req call back. I have offered in person or Zoom (via secure [facility] Zoom portal) meeting/awaiting response. Updated CCM pt not seen/no charge submitted Thank you for allowing us to participate in the ongoing care of this patient. Please don't hesitate to call or page with any additional concerns. Dr. Susan Zheng DNP Director, Palliative Care
--- NOTE | 2023-01-31 17:55 | Infectious Disease Progress Nt ---
Date of Service January 31, 2023 Assessment & Plan (1) Endotracheally intubated: (2) Acute encephalopathy: (3) Acute respiratory failure with hypoxia: (4) Acute renal disease: (5) Bacteremia due to Enterococcus: (6) Coagulase negative Staphylococcus bacteremia: (7) Hospital acquired PNA: (8) Ventilator associated pneumonia: Plan Yaron Acosta is a 72 year-old man with history of SC s/p PCI (2000), prostate cancer s/p prostatectomy, HTN, DM2, renal cell carcinoma s/p partial L nephrectomy (2014), LLE DVT (2020), prior history of AAA s/p EVAR (2008), admitted to [facility] [place] 12/18-01/08 with 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 He was admitted to [facility] on 01/10 for placement, with a course c/b: 01/12 cardiac arrest requiring intubation; 01/12 BCx 2 of 4 CoNS, repeat BCx post-arrest with 4 of 4 CoNS. Blood cultures from 01/13 again grew CoNS in 2/4 bottles, as well as Staph haemolyticus in 1/4 bottles, and E. faecalis in 2/4 bottles. BCx cleared on 01/15, now s/p HD catheter removal on 01/18 (catheter tip cx NG). ID is consulted for CoNS, Staph haemolyticus, and E. faecalis bacteremia. Given CoNS positivity in multiple BCx, this is not a contaminant. Several possible sources of infection; 1) endovascular graft, 2) central lines-HD catheter, femoral line, 3) History of R great toe metal/screw (no evidence of infection here), 4) R AC fossa tenderness and redness/PIV infiltration (less likely, RUE US showed R basilic vein thrombosis, no evidence of soft tissue abscess), 5) acute sinusitis on imaging (less likely). Interestingly, pt also with E. faecalis on 01/13 blood culture. TTE on 01/15 did not demonstrate vegetations. He has had persistent fevers now of unclear source, ddx including infection, drug fever, thrombosis. BLE dopplers negative. Question of possible HAP/VAP. Respiratory Cx + Serratia marcescens, UCx+ Klebsiella. CT head with chronic R maxillary, sphenoid, and ethmoid sinusitis; no acute findings. CXR with increased infiltrates, possible pneumonia vs. pneumonitis. Repeat BCx, SpCX, and UCx from 01/26 negative. Anticipate 6-week course for suspected endovascular infection (given multiple blood cultures with Staph epi from 01/12-01/13, and E faecalis in 2/4 bottles on 01/13, and given high risk of graft infection with recent endograft placement). In the setting or persistent fevers, was changed from daptomycin to vancomycin, and broadened to meropenem. (Also with PCN allergy). Can continue this for now. May consider transitioning from vancomycin back to daptomycin pending clinical improvement and negative repeat Cx. ID Problem List: # Acute hypoxic respiratory failure # Serratia marcescens on sputum cx # Klebsiella oxytoca in UC # fevers started 01/24 # Recent Staph epi bacteremia # Recent E faecalis bacteremia # Recent thoracic aortic aneurysm repair with graft # R HD catheter: removed 01/18 # right great toe screw in place Recommendations: - Continue vancomycin - Continue meropenem 1g IV Q12H (renally dosed) - F/u BCx ID will continue to follow. Ly Adam MD, MHS Infectious Diseases [facility]/ID Connect ID Connect direct line: [phone] Admission and Anticipated Discharge Date Admission Date: January 22, 2023 Subjective Subsequent visit was provided via telemedicine using two-way real-time interactive telecommunication between the patient and the telemedicine provider. For the duration of the visit, the provider was performing the assessment from a different facility than the patient. This includesuse of bluetooth stethoscope forauscultationperformed by the telepresenter that the telemedicine provider can hear if described in the physical exam. Military Analyst contact information: Please call ID Connect Call Center . (Phone Number For Physician Use Only) After establishing a telemedicine visit, patient was: Patient was verified with two unique identifiers and Patient/authorized rep acknowledged consent and understanding Time Spent with Patient: Subsequent => 35 min - Fever curve improving but remains febrile - Extubated over weekend but became tachypneic and tachycardic, reintubated last night - Not on sedation, not on levophed - Having loose stools, low UOP Physical Exam Physical Exam: GEN: Intubated HEENT: Conjunctivae non-injected, sclerae anicteric. ETT in place CV: RRR, no m/r/g Resp: Bilateral coarse ventilated BS anteriorly Abd: Soft, nondistended Ext: Warm, well-perfused, no edema Neuro: Intubated Psych: Unable to assess Skin: No rashes Results & Data Vital Signs (Past 12 Hours) Vital Signs Temp Pulse Resp BP Pulse Ox O2 Del Method FiO2 01/31/23 16:45 38.2 C H 75 19 96/52 L 95 Mechanical Vent 40 01/31/23 16:30 38.3 C H 74 20 96/55 L 97 Mechanical Vent 40 01/31/23 16:15 38.3 C H 73 19 98/57 L 98 Mechanical Vent 40 01/31/23 16:06 78 99/53 L 01/31/23 16:00 38.2 C H 79 20 101/53 L 98 Mechanical Vent 40 01/31/23 16:00 40 01/31/23 15:45 38.2 C H 80 20 103/54 L 98 Mechanical Vent 40 01/31/23 15:30 38.1 C H 81 20 106/56 L 99 Mechanical Vent 40 01/31/23 15:20 84 20 99 40 01/31/23 15:15 38.1 C H 84 20 103/55 L 99 Mechanical Vent 40 01/31/23 15:00 38.0 C H 90 21 108/55 L 98 Mechanical Vent 40 01/31/23 14:45 38.0 C H 95 H 19 111/56 L 98 Mechanical Vent 40 01/31/23 14:30 38.0 C H 101 H 24 108/62 97 Mechanical Vent 40 01/31/23 14:15 38.0 C H 105 H 23 107/60 97 Mechanical Vent 40 01/31/23 14:00 37.9 C H 109 H 24 120/56 L 97 Mechanical Vent 40 01/31/23 13:58 37.9 C H 109 H 22 104/74 98 Mechanical Vent 40 01/31/23 13:45 37.9 C H 114 H 23 116/76 97 Mechanical Vent 40 01/31/23 13:31 37.9 C H 114 H 24 106/69 98 Mechanical Vent 40 01/31/23 13:17 37.9 C H 113 H 28 H 140/73 96 Mechanical Vent 40 01/31/23 13:04 37.9 C H 112 H 25 H 107/55 L 94 Mechanical Vent 40 01/31/23 13:01 37.9 C H 109 H 23 84/71 L 94 Mechanical Vent 40 01/31/23 12:45 38.0 C H 107 H 22 120/64 95 Mechanical Vent 40 01/31/23 12:30 38.0 C H 101 H 20 115/62 96 Mechanical Vent 40 01/31/23 12:23 103 H 90/57 L 01/31/23 12:15 38.0 C H 97 H 20 90/57 L 96 Mechanical Vent 40 01/31/23 12:00 38.0 C H 98 H 20 102/56 L 96 Mechanical Vent 40 01/31/23 12:00 40 01/31/23 11:45 38.0 C H 98 H 20 90/53 L 97 Mechanical Vent 40 01/31/23 11:30 37.9 C H 94 H 20 113/56 L 97 Mechanical Vent 40 01/31/23 11:15 37.9 C H 91 H 20 103/55 L 99 Mechanical Vent 40 01/31/23 11:00 37.8 C H 92 H 20 101/59 L 99 Mechanical Vent 40 01/31/23 10:47 101 H 20 96 40 01/31/23 10:45 37.8 C H 97 H 20 101/55 L 97 Mechanical Vent 40 01/31/23 10:30 37.9 C H 99 H 20 100/60 96 Mechanical Vent 40 01/31/23 10:15 37.9 C H 99 H 20 104/53 L 95 Mechanical Vent 40 01/31/23 10:00 37.9 C H 101 H 20 101/54 L 95 Mechanical Vent 40 01/31/23 09:45 37.9 C H 103 H 20 101/58 L 94 Mechanical Vent 40 01/31/23 09:30 37.9 C H 101 H 20 103/54 L 94 Mechanical Vent 40 01/31/23 09:15 38.0 C H 98 H 20 104/55 L 95 Mechanical Vent 40 01/31/23 09:00 38.0 C H 103 H 20 100/58 L 95 Mechanical Vent 40 01/31/23 08:45 38.1 C H 104 H 20 108/54 L 95 Mechanical Vent 40 01/31/23 08:30 38.1 C H 105 H 20 102/57 L 95 Mechanical Vent 40 01/31/23 08:27 105 H 95/55 L 01/31/23 08:15 38.1 C H 106 H 20 95/55 L 94 Mechanical Vent 40 01/31/23 08:11 38.2 C H 105 H 20 97/54 L 95 Mechanical Vent 40 01/31/23 08:00 38.2 C H 105 H 20 94/52 L 95 Mechanical Vent 40 01/31/23 08:00 Mechanical Vent 40 01/31/23 07:48 92 H 20 97 40 01/31/23 07:45 38.3 C H 104 H 20 102/57 L 96 Mechanical Vent 40 01/31/23 07:30 38.2 C H 96 H 20 111/57 L 98 Mechanical Vent 40 01/31/23 07:15 38.1 C H 92 H 18 126/56 L 96 Mechanical Vent 40 01/31/23 07:00 38.1 C H 82 20 125/61 99 Mechanical Vent 40 01/31/23 07:00 40 01/31/23 06:45 38.1 C H 83 20 109/65 98 Mechanical Vent 40 01/31/23 06:00 89/47 L 01/31/23 06:00 37.9 C H 92 H 20 98 Diagnostic Findings Micro Summary: Current Micro 01/26 UCx NG 01/26 BCx NGTD 01/26 SpCx (vent suction): normal eliezer UC 01/22 > 100k Klebsiella oxytoca - R to cefazolin BC 01/22 NGTD Sputum cx 01/23 Serratia marcescens- ZAMBRANO Sensitive BC 01/26 P Sputum cx 01/26 P Prior Micro: 01/18 HD catheter tip cx: NG 01/17 BCx x2: NGTD 01/15 BCx x2: NG 01/13 BCx x2: Coag neg Staph not lug in 2/4 bottles (R oxacillin, clinda, TMP/ SMX. S dapto, tetra, vanc), Staph haemolyticus in 1/4 bottles (R oxacillin, TMP/SMX, clinda. S dapto, tetra, vanc), E faecalis in 2/4 bottles (S amp, vanc). BCID PCR panel + Staph epi, E faecalis 01/12 BCx x2: Coag neg Staph not lugdunensis in 4/4 bottles. BCID PCR panel + Staph epi 01/12 BCx x2: Coag neg Staph not lugdunensis in 2/4 bottles (R oxacillin. S clinda, tetra, TMP/SMX) 01/11 UCx: >3 organisms Antibiotic Summary: Daptomycin 01/12-01/22 , 01/25 Zosyn 01/22 mahi vanco 01/22-present cefepime 01/22, 01/24-01/25 Ceftriaxone 01/25-01/26 Meropenem 01/27-present
[2023-01-31] MEDS: NOVASOURCE RENAL 2.0 CAL 1000ML BAG OG SCH (18:20)
[2023-01-31] MEDS: NOREPINEPHRINE/D5W 4 MG/250 ML PLCT IV SCH (20:00)
[2023-01-31] MEDS ORDERED: ALBUMIN 25% 25 GM/100 ML VIAL IV ONE (22:16)
--- NOTE | 2023-01-31 22:38 | Hospitalist Progress Note ---
Date of Service January 31, 2023 Assessment & Plan (1) Acute respiratory failure with hypoxia: Plan: Acute hypoxic respiratory failure Presents on nonrebreather SPO2 sats in the 70s with increased tachypnea ABG revealed respiratory acidosis, patient intubated and started on broad- spectrum antibiotic after he failed BiPAP - CTchest: No consolidation suggestive of pneumonia. Emphysema. Moderate secretions of the trachea and mainstem bronchi, No leukocytosis, procalcitonin elevated Continue Ceftriaxone and daptomycin per ID -Sputum cultures growing Serratia Patient was recently admitted to this facility with generalized weakness, after patient had a endovascular graft for aortic aneurysm, and other facility, the course was complicated with persistent gram-positive bacteremia, cardiopulmonary arrest, patient discharged to rehab facility after PICC line placed on 6 weeks course of treatment with daptomycin -Extubated on 01/28 -Family meeting with palliative completed 01/28 Once patient is more improved, will have discussion with patient regarding his goals of care. Since extubation patient has been on more oxygen. Patient has been reintubated on 01/30 Remains intubated on 01/31 (2) Acute renal disease: (3) Endotracheally intubated: (4) Complicated UTI (urinary tract infection): (5) Uremia: (6) Acute encephalopathy: Plan: Etiology is uncertain, EEG showed disorganized background with slowing but no epileptiform waves MRI did not show any acute pathology Neurologist on consult, (7) Acute UTI: Plan: urine cultures growing Klebsiella Oxytoca Continue ceftriaxone (8) AMS (altered mental status): (9) Acute respiratory failure with hypoxia and hypercarbia: (10) Gram-positive bacteremia: Plan: History of gram-positive bacteremia - 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 haemolyticus, E facalis cultures on prior admit. Recurrent [employer]ALITY ASS[employer]ANCE ASSOCIATE bacteremia 01/12-01/13 vanc/dapto sensitive. Endograft at risk of infectious, but no clear infection during admit Repeat blood cultures pending Discharged on daptomycin started 01/12, patient did receive Zosyn 01/12 and 01/13. - Was recommended to complete 6 weeks of daptomycin, and dosing was increased to 10 mg/kg's for Enterococcus with DAYNA of 2. -Continue daptomycin for a total of 6 weeks (11) Anemia: (12) Pseudoaneurysm of femoral artery following procedure: (13) Atrial fibrillation: Plan: History of A-fib, recent cardiopulmonary arrest DOAC converted to heparin while inpatient and critically ill Admitting EKG normal sinus rhythm without territorial signs of ischemia Following contrast exposure despite premedication at prior hospitalization. Likely 2/2 critical illness, but cannot exclude contrast allergy. Patient is anticoagulated so risk of PE is low, will convert apixaban to heparin. (14) CAROLINA (acute kidney injury): Plan: CAROLINA, transient HD dependence CAROLINA with bilateral renal infarcts and IV contrast administration at last hospitalization Last hemodialysis 01/14/2023, creatinine was stable at around 3.4 since Right IJ was removed 01/18/2023. No further dialysis was anticipated at that time No emergent indication for dialysis on admission - nephrology consulted Anemia Normocytic continue to monitor (15) GERD (gastroesophageal reflux disease): Plan: - PPI (16) Diabetes mellitus, type 2: Plan: ICU hyperglycemia per (17) CAD (coronary artery disease): Plan: - With history of stents Troponin is downtrending from prior, 27.5. Trended. No ischemic findings on EKG, (18) Malnutrition: Plan: continue tube feeds Plan DVT prophylaxis: On heparin Disposition: ICU CODE STATUS: Full code, family is discussing whether patient would want to convert to DNR/DNI given current circumstance Admission and Anticipated Discharge Date Admission Date: January 22, 2023 Subjective Patient is intubated. Review of Systems Review of Systems: Unobtainable due to endotracheal tube Physical Exam Physical Exam: Patient is intubated HEENT--PERRL, EOMI Neck--supple. No JVD Heart--normal S1 and S2. No murmurs, rubs or gallops. Lungs--rhonchi Abdomen--normal bowel sounds and soft. Mild epigastric and left sided abdominal pain Extremities--no cyanosis or clubbing. No edema. Dermatologic--normal skin turgor, normal color, no abnormal lymph nodes, no rash. Rheumatologic--normal range of motion Results & Data Results & Data Vital Signs (Past 12 Hours) Vital Signs Temp Pulse Resp BP Pulse Ox O2 Del Method FiO2 01/31/23 21:11 66 20 98 40 01/31/23 20:49 74 134/67 01/31/23 20:00 40 01/31/23 20:00 Mechanical Vent 40 01/31/23 18:15 37.8 C H 66 20 90/53 L 97 Mechanical Vent 40 01/31/23 18:00 37.8 C H 67 20 91/53 L 96 Mechanical Vent 40 01/31/23 17:45 37.9 C H 70 20 93/54 L 96 Mechanical Vent 40 01/31/23 17:30 38.0 C H 74 20 95/52 L 96 Mechanical Vent 40 01/31/23 17:15 38.1 C H 76 20 95/54 L 96 Mechanical Vent 40 01/31/23 17:00 38.1 C H 76 21 94/51 L 96 Mechanical Vent 40 01/31/23 16:45 38.2 C H 75 19 96/52 L 95 Mechanical Vent 40 01/31/23 16:30 38.3 C H 74 20 96/55 L 97 Mechanical Vent 40 01/31/23 16:15 38.3 C H 73 19 98/57 L 98 Mechanical Vent 40 01/31/23 16:06 78 99/53 L 01/31/23 16:00 38.2 C H 79 20 101/53 L 98 Mechanical Vent 40 01/31/23 16:00 40 01/31/23 15:45 38.2 C H 80 20 103/54 L 98 Mechanical Vent 40 01/31/23 15:30 38.1 C H 81 20 106/56 L 99 Mechanical Vent 40 01/31/23 15:20 84 20 99 40 01/31/23 15:15 38.1 C H 84 20 103/55 L 99 Mechanical Vent 40 01/31/23 15:00 38.0 C H 90 21 108/55 L 98 Mechanical Vent 40 01/31/23 14:45 38.0 C H 95 H 19 111/56 L 98 Mechanical Vent 40 01/31/23 14:30 38.0 C H 101 H 24 108/62 97 Mechanical Vent 40 01/31/23 14:15 38.0 C H 105 H 23 107/60 97 Mechanical Vent 40 01/31/23 14:00 37.9 C H 109 H 24 120/56 L 97 Mechanical Vent 40 01/31/23 13:58 37.9 C H 109 H 22 104/74 98 Mechanical Vent 40 01/31/23 13:45 37.9 C H 114 H 23 116/76 97 Mechanical Vent 40 01/31/23 13:31 37.9 C H 114 H 24 106/69 98 Mechanical Vent 40 01/31/23 13:17 37.9 C H 113 H 28 H 140/73 96 Mechanical Vent 40 01/31/23 13:04 37.9 C H 112 H 25 H 107/55 L 94 Mechanical Vent 40 01/31/23 13:01 37.9 C H 109 H 23 84/71 L 94 Mechanical Vent 40 01/31/23 12:45 38.0 C H 107 H 22 120/64 95 Mechanical Vent 40 01/31/23 12:30 38.0 C H 101 H 20 115/62 96 Mechanical Vent 40 01/31/23 12:23 103 H 90/57 L 01/31/23 12:15 38.0 C H 97 H 20 90/57 L 96 Mechanical Vent 40 01/31/23 12:00 38.0 C H 98 H 20 102/56 L 96 Mechanical Vent 40 01/31/23 12:00 40 01/31/23 11:45 38.0 C H 98 H 20 90/53 L 97 Mechanical Vent 40 01/31/23 11:30 37.9 C H 94 H 20 113/56 L 97 Mechanical Vent 40 01/31/23 11:15 37.9 C H 91 H 20 103/55 L 99 Mechanical Vent 40 01/31/23 11:00 37.8 C H 92 H 20 101/59 L 99 Mechanical Vent 40 01/31/23 10:47 101 H 20 96 40 01/31/23 10:45 37.8 C H 97 H 20 101/55 L 97 Mechanical Vent 40 PG Care Time/CCT Total # of Minutes Spent Total Time Spent with Patient: Total time spent is greater than 50% in coordination of care (as documented) at patient's floor/unit and/or counseling patient: Coding Level of Care Code 03504 SUB INP/OBS CARE 2/35MIN Diagnoses Acute respiratory failure with hypoxia J96.01 Acute renal disease N28.9 Endotracheally intubated Z97.8 Complicated UTI (urinary tract infection) N39.0 Uremia N19 Acute encephalopathy G93.40 Acute UTI N39.0 AMS (altered mental status) R41.0 Altered mental status type: disorientation Acute respiratory failure with hypoxia and hypercarbia J96.01; J96.02 Gram-positive bacteremia R78.81 Anemia due to chronic kidney disease, unspecified CKD stage N18.9; D63.1 Anemia type: due to chronic kidney disease Chronic kidney disease stage: unspecified stage Pseudoaneurysm of femoral artery following procedure T81.718A; I72.4 Atrial fibrillation I48.91 CAROLINA (acute kidney injury) N17.9 GERD (gastroesophageal reflux disease) K21.9 Type 2 diabetes mellitus with other circulatory complication, without long-term current use of insulin E11.59 Diabetes mellitus equipment operator intermodal yard insulin use: without skilled nursing use Diabetes mellitus complication status: with circulatory complication Diabetes mellitus complication detail: with other circulatory complications Coronary artery disease involving council coronary artery of council heart without angina pectoris I25.10 Coronary Disease-Associated Artery/Lesion type: council artery Solomon vs. transplanted heart: council heart Associated angina: without angina Malnutrition E46 (8) AMS (altered mental status) Altered mental status type: disorientation Qualified Code(s): R41.0 - Disorientation, unspecified (11) Anemia Anemia type: due to chronic kidney disease Chronic kidney disease stage: unspecified stage Qualified Code(s): N18.9 - Chronic kidney disease, unspecified; D63.1 - Anemia in chronic kidney disease (16) Diabetes mellitus, type 2 Diabetes mellitus skilled nursing insulin use: without equipment operator intermodal yard use Diabetes mellitus complication status: with circulatory complication Diabetes mellitus complication detail: with other circulatory complications Qualified Code(s): E11.59 - Type 2 diabetes mellitus with other circulatory complications (17) CAD (coronary artery disease) Coronary Disease-Associated Artery/Lesion type: council artery Solomon vs. transplanted heart: council heart Associated angina: without angina Qualified Code(s): I25.10 - Atherosclerotic heart disease of council coronary artery without angina pectoris
[2023-02-01] MEDS: INSULIN ASPART PER UNIT CHARGE SC SCH ×3 (00:23→12:03)
[2023-02-01] MEDS: dexMEDEtomidine 200 MCG/50 ML BAG IV SCH ×7 (00:25→12:39)
[2023-02-01] MEDS ORDERED: FUROSEMIDE 40 MG/4 ML VIAL IV ONE (00:53)
[2023-02-01] MEDS: METOPROLOL TARTRATE 1 MG/ML VIAL IV SCH ×3 (01:12→10:08)
[2023-02-01] MEDS: TUBE FEEDING WATER FLUSH OG SCH ×4 (04:02→15:04)
[2023-02-01 04:27] LABS: iSTAT Allen Test Pass; iSTAT Art Bld Gas pCO2 Correct 41 mmHg (35-46); iSTAT Arterial Blood Gas HCO3 25 meg/L (19-24); iSTAT Arterial Blood Gas pCO2 39 mmHg (35-46); iSTAT Arterial Blood Gas pH 7.41 (7.35-7.45); iSTAT Arterial Blood Gas pO2 102 mmHg (80-95); iSTAT Arterial Blood Gas pO2 C 111; iSTAT Carbon Dioxide 26 mmol/L (24-31); iSTAT FiO2 40 %; iSTAT Hematocrit 21 % (42-52); iSTAT Hemoglobin 7.1 g/dl (14.0-18.0); iSTAT Potassium 3.6 mmol/L (3.3-5.0); iSTAT Site R Radial; iSTAT Sodium 141 mmol/L (135-144)
[2023-02-01 04:32] LABS: Basophils # (auto) 0.03 K/uL (0.00-0.20); Basophils % (auto) 0.6 %; Eosinophils # (auto) 0.39 K/uL (0.00-0.50); Eosinophils % (auto) 7.4 %; Hematocrit (blood only) 22.7 % (42.0-52.0); Hemoglobin 7.1 g/dl (14.0-18.0); Immature Granulocytes # (auto) 0.03 K/uL (0.01-0.20); Immature Granulocytes % (auto) 0.6 %; Lymphocytes # (auto) 1.09 K/uL (1.20-3.40); Lymphocytes % (auto) 20.6 %; Mean Corpuscular Hemoglobin 28.3 pg (25.0-34.0); Mean Corpuscular Hgb Conc 31.3 g/dL (32.0-36.0); Mean Corpuscular Volume 90.4 fL (80.0-100.0); Mean Platelet Volume 10.6 fL (9.4-12.4); Monocytes # (auto) 0.34 K/uL (0.11-0.59); Monocytes % (auto) 6.4 %; Neutrophils % (auto) 64.4 %; Platelet Count 234 K/uL (130-400); RDW Coefficient of Variation 14.6 % (11.5-14.5); RDW Standard Deviation 48.2 fL (36.4-46.3); Red Blood Count 2.51 M/uL (4.70-6.10); White Blood Count 5.28 K/ul (4.8-10.8)
[2023-02-01 04:48] LABS: Partial Thromboplastin Ratio 1.4
[2023-02-01 04:52] LABS: Calcium 8.5 mg/dl (8.6-10.3); Potassium 3.7 mmol/L (3.5-5.1)
[2023-02-01 04:58] LABS: BUN Creatinine Ratio 19.5 (10-20); Creatinine Clr Calc Pharmacy 24.4 ml/min; Est GFR (African American) 22.6 ml/min; Est GFR (Non-African American) 19.5 ml/min; Phosphorus 5.3 mg/dl (2.5-4.9)
[2023-02-01 05:21] LABS: Hypochromasia Present; Polychromasia 2+
--- NOTE | 2023-02-01 07:38 | XRay Report ---
SINGLE VIEW CHEST CLINICAL HISTORY: Respiratory failure. FINDINGS: An AP, portable, upright chest radiograph is compared to study date 01/31/2023 and correlat ed with chest CT dictated 01/22/2023. The examination is degraded by portable technique, apical lordo tic positioning, and patient rotation. An endotracheal tube and an enteric tube are unchanged in pos ition. A right-sided PICC line is again noted. The heart is enlarged. The pulmonary vasculature is no ncongested. A stent graft is again seen in the thoracic aorta. Emphysema and chronic interstitial thi ckening similar to previous. Mild left basilar opacities persist small pleural effusions are noted. N o pneumothorax is identified. The skeletal structures are osteopenic. The bony thorax is grossly inta ct. IMPRESSION: 1. Stable lines and tubes. 2. Cardiomegaly and emphysema without radiographic evidence of congestive failure. 3. Left basilar opacities persist. Clinical correlation will be required and radiographic follow-up t o resolution is recommended. 4. Small pleural effusions. ACT 112: Negative or not required by law. Electronically signed by: Mando Alfonso M.D. 02/01/2023 7:37 AM
[2023-02-01] MEDS: HEPARIN SODIUM/DEXTROSE 25,000 UNITS/500 ML BAG IV SCH ×4 (08:03→16:30)
[2023-02-01] MEDS: MEROPENEM 500 MG in SYRINGE 0 ML IV SCH (08:06)
--- NOTE | 2023-02-01 09:28 | Critical Care Progress Note ---
Date of Service February 01, 2023 Assessment & Plan (1) Acute renal disease: (2) Endotracheally intubated: (3) Complicated UTI (urinary tract infection): (4) Uremia: (5) Acute encephalopathy: (6) Acute respiratory failure with hypoxia: (7) Acute UTI: (8) AMS (altered mental status): (9) Acute respiratory failure with hypoxia and hypercarbia: (10) Gram-positive bacteremia: (11) Anemia: (12) Pseudoaneurysm of femoral artery following procedure: Plan Reason Critically Ill: 72-year-old male with ongoing altered mental status, persistent respiratory failure requiring endotracheal intubation, and bacteremia. NEURO - * CAM ICU: Unable to assess secondary to sedation * Altered mental status: * Patient has been extensively evaluated to this point including MRI and EEG. * Patient had done well off sedation in the past. We will remove sedation and de-escalate to lowest necessary dose. * Should be noted that patient's family reports the patient is extremely sensitive to medications in general. * Unfortunately, despite drug holidays and allowing significant time for the patient to clear, he is with persistent altered mental state. Apparently, at the time of extubation he was able to communicate somewhat with his children. Unfortunately, he appears significantly weak and unable to engage in respirations and airway clearing. * Sedation: Patient was transition to Precedex yesterday. He did well with this medication and is titrated down to lowest effective dose. CARDIAC/VASCULAR - * Recent thoracic aortic aneurysm repair: * Echo (01/13): EF 60-65% with LVH. RV Pressures assessed as normal. * Hypotension: * In the setting of sepsis and sedation medication. * Currently off pressors at this time. * History of A. Fib: * SR at this point. * Continue Metoprolol IV for now. * Heparin gtt. * Monitor on telemetry. RESPIRATORY - * Respiratory failure with hypoxia: * Patient initially intubated on 01/23/2023 in the setting of hypercapnic respiratory failure. The patient was with persistent altered mental status which did not allow appropriate ventilation. He was eventually liberated from the ventilator, but required reintubation within 48 hours of extubation. Patient was noted to have a weak cough and poor airway clearing at that time. Additionally, he failed high flow and BiPAP therapies. Unfortunately, given his failed attempt at liberation with the ventilator, ongoing mental status issues, and inability to liberate from the ventilator, the patient likely warrants tracheostomy placement if this would be in alignment with the patient's goals of care. Please see CODE STATUS. GI/NUTRITION - * Tube feeds near goal. * Prophylaxis: Protonix RENAL/LYTES - * Recent CAROLINA: * Creatinine and electrolytes have stabilized at this point. * Nephrology has signed off. - * Acosta in place - Strict I&Os. ENDO - * DMII: * BSGs per unit protocol. ISS --> gtt per unit policy. HEME - * Anemia: * PRBCs x1 on 01/22/2023. ID - * Sepsis in the setting of Urine and/or respiratory: * Serratia in the sputum and Klebsiella in the urine. * Remains persistently febrile. * Appreciate ID guidance at antibiotic directed therapies. LINES/IV ACCESS - * PIVs x1 * RUE triple lumen PICC * Acosta * ETT * OGT DVT PROPHYLAXIS - * Heparin gtt * SCDs CODE STATUS - * 0821: Spoke with patient's daughter, Luyc. She reports they are scheduled to have a Zoom meeting with palliative care this morning at 9:30 AM. Did discuss recent updates. She reports that they had made a decision that they would not wish to proceed with tracheostomy moving forward. * Spoke with palliative care CHACHA directly who had an extensive conversation with family via Zoom. They have changed CODE STATUS to DNR/DNI. They are discussing extubation without plan for reintubation. * Patient's son, Jase, present at bedside. Had an extensive conversation with him regarding moving forward. He reports that his sister is on her way. * Had a long family meeting with the patient's son and daughter with other loved ones present as well. We discussed moving forward including tracheostomy placement, long-term care facility, peg tube with tube feedings, etc. They reiterate that this is something that he would not want. Again they specifically stated that the patient would not have wanted long-term intubation with mechanical ventilation. I expressed my concerns that the patient is having worsening weakness and frailty while remaining on the ventilator and we are likely have lost our window of opportunity for successful liberation of the ventilator when this was previously performed. They recognize this and state that they would rather undergo extubation at this time with no intentions for reintubation. We also discussed that if his mental status and respiratory status were to change after extubation, we will quickly transition to comfort measures if that was in line with her wishes. They confirmed that they would wish to transition to comfort measures at that time. Orders were placed for Dilaudid and Ativan as needed pushes for now. Certainly, we can escalate therapy if necessary as well has their main wishes that the patient does not struggle to breathe. I explained to them that the dying process is different for every person and that this may be a situation that takes several hours to days depending on how he responds with being extubated. They acknowledge this. Additionally, we discussed removal of antibiotics if transitioning to full comfort measures. They will think about this. Family members provided comfort and questions answered to the best of my capabilities. The patient was extubated just before 2 PM. I have personally spent 75 minutes of critical care time in the direct management of this patient. This is a life/limb threatening event. This includes time spent evaluating patient, direct bedside care, chart review, placing orders, interpretation of diagnostic studies, discussion with consultants, patient, and family members, as well as other required patient management activities. This time is exclusive of all separately billable procedures, and teaching time and separate from and in addition to any other critical care service time. Thank you for allowing us to participate in the care of this patient. Please refer to my attending physician's documentation for any further recommendations. Admission and Anticipated Discharge Date Admission Date: January 22, 2023 Supervising Physician Co-Signing Physician Notes Patient seen and examined. EMR reviewed. Discussed on multidisciplinary rounds and with critical care CHACHA. Agree with assessment and plan as noted. Patient continues to demonstrate vent dependence. I am concerned that his level of deconditioning would not permit vent liberation. Discussions are being held with the family as the patient and family have apparently adamantly decided that tracheostomy would not be in the patient's best interest or what he would desire. They also are opposed to the patient going to a retirement facility. Given these clearly expressed wishes, family will be broached regarding potential extubation with plans to transition to palliative care quickly if the patient shows respiratory distress. Family is apparently comfortable proceeding with this approach. My anticipation is that the patient will have inability to manage secretions and develop respiratory distress shortly after extubation at which point comfort care measures will be initiated and the patient allowed to pass comfortably. Subjective Patient seen and evaluated in the morning. He remains on light sedation with Precedex. He opens his eyes in response to painful stimuli. He had responded to IV albumin and Lasix last evening with good urine output. Review of Systems Review of Systems: Unable to assess secondary to mental status. Physical Exam Physical Exam: VITAL SIGNS - Vital signs and nursing notes were reviewed. GENERAL - 72-year-old male appearing his stated age who is intubated and sedated. NOSE - Midline and without cyanosis. MOUTH/OROPHARYNX - ETT/OGT in place. NECK - Neck with FROM. LUNGS - Auscultation reveals coarse breath sounds and diminished at the bases. No wheezing appreciated. CARDIAC - RRR with S1/S2. No murmur, rubs, or gallops appreciated. ABDOMEN - Abdominal inspection demonstrates a flat abdomen. BS normoactive all four quadrants. No tenderness, palpable masses, or ascites noted. Results & Data Results & Data Vital Signs (Past 12 Hours) Vital Signs Temp Pulse Resp BP Pulse Ox O2 Del Method FiO2 02/01/23 08:15 38.4 C H 82 23 110/53 L 95 Mechanical Vent 30 02/01/23 08:00 38.3 C H 96 H 25 H 126/62 96 Mechanical Vent 30 02/01/23 07:45 38.2 C H 121 H 26 H 136/69 96 Mechanical Vent 30 02/01/23 07:30 37.9 C H 36 H 123/59 L 95 Mechanical Vent 30 02/01/23 07:15 37.9 C H 82 23 125/60 98 Mechanical Vent 30 02/01/23 07:13 65 20 96 30 02/01/23 07:00 37.9 C H 65 20 104/54 L 97 Mechanical Vent 30 02/01/23 07:00 30 02/01/23 05:01 37.8 C H 63 20 95 02/01/23 05:01 103/54 L 02/01/23 05:00 37.8 C H 63 24 02/01/23 04:45 164/71 H 02/01/23 04:45 37.8 C H 73 21 94 02/01/23 04:30 37.9 C H 75 21 94 02/01/23 04:30 152/75 H 02/01/23 04:15 38.0 C H 75 20 94 02/01/23 04:15 133/64 02/01/23 04:00 146/70 H 02/01/23 04:00 38.1 C H 74 20 94 02/01/23 04:00 40 02/01/23 03:45 144/68 H 02/01/23 03:45 38.2 C H 74 20 94 02/01/23 03:40 31 L 20 98 30 02/01/23 03:30 148/73 H 02/01/23 03:30 38.3 C H 74 20 97 02/01/23 03:15 131/63 02/01/23 03:15 38.4 C H 73 20 97 02/01/23 03:00 135/65 02/01/23 03:00 38.4 C H 75 20 97 02/01/23 02:45 103/54 L 02/01/23 02:45 38.3 C H 81 24 96 02/01/23 02:30 141/70 H 02/01/23 02:30 38.2 C H 77 22 97 02/01/23 02:15 144/76 H 02/01/23 02:15 38.1 C H 85 26 H 99 02/01/23 02:00 151/71 H 02/01/23 02:00 37.9 C H 109 H 30 H 100 02/01/23 01:45 155/76 H 02/01/23 01:45 37.6 C H 84 28 H 100 02/01/23 01:30 152/71 H 02/01/23 01:30 37.7 C H 78 20 98 02/01/23 01:15 147/70 H 02/01/23 01:15 37.7 C H 64 20 97 02/01/23 01:12 69 146/68 H 02/01/23 01:00 146/68 H 02/01/23 01:00 37.8 C H 66 20 97 02/01/23 00:45 160/70 H 02/01/23 00:45 37.9 C H 67 20 97 02/01/23 00:31 154/71 H 02/01/23 00:31 37.9 C H 70 24 99 02/01/23 00:30 37.9 C H 74 21 98 02/01/23 00:15 115/54 L 02/01/23 00:15 37.8 C H 74 20 97 02/01/23 00:02 78 32 H 96 40 02/01/23 00:00 107/53 L 02/01/23 00:00 37.7 C H 81 20 98 02/01/23 00:00 40 02/01/23 00:00 77 01/31/23 23:45 37.7 C H 77 19 98 01/31/23 23:45 161/78 H 01/31/23 23:30 164/82 H 01/31/23 23:30 37.6 C H 78 21 98 01/31/23 23:15 138/75 01/31/23 23:15 37.6 C H 80 14 95 01/31/23 23:00 150/72 H 01/31/23 23:00 37.6 C H 80 21 95 01/31/23 22:45 147/77 H 01/31/23 22:45 37.6 C H 71 20 97 01/31/23 22:30 37.6 C H 71 20 95 01/31/23 22:30 145/69 H 01/31/23 22:15 137/68 01/31/23 22:15 37.7 C H 71 20 96 01/31/23 22:00 134/72 01/31/23 22:00 37.7 C H 73 20 96 01/31/23 21:45 129/64 01/31/23 21:45 37.7 C H 75 20 96 01/31/23 21:30 37.6 C H 78 23 98 01/31/23 21:30 141/67 H Coding Level of Care Code 66212 CRITICAL CARE 1ST 30-74M Diagnoses Acute renal disease N28.9 Endotracheally intubated Z97.8 Complicated UTI (urinary tract infection) N39.0 Uremia N19 Acute encephalopathy G93.40 Acute respiratory failure with hypoxia J96.01 Acute UTI N39.0 AMS (altered mental status) R41.0 Altered mental status type: disorientation Acute respiratory failure with hypoxia and hypercarbia J96.01; J96.02 Gram-positive bacteremia R78.81 Anemia due to chronic kidney disease, unspecified CKD stage N18.9; D63.1 Anemia type: due to chronic kidney disease Chronic kidney disease stage: unspecified stage Pseudoaneurysm of femoral artery following procedure T81.718A; I72.4 (8) AMS (altered mental status) Altered mental status type: disorientation Qualified Code(s): R41.0 - Disorientation, unspecified (11) Anemia Anemia type: due to chronic kidney disease Chronic kidney disease stage: unspecified stage Qualified Code(s): N18.9 - Chronic kidney disease, unspecified; D63.1 - Anemia in chronic kidney disease
[2023-02-01] MEDS ORDERED: Nursing to Pharmacy Communication SCH (09:30)
--- NOTE | 2023-02-01 09:46 | Palliative Family Discussion ---
Date of Service February 01, 2023 Patient Directed Conference Time of Meetin Participants: Susan Zheng DNP Patient participation: no, pt sedated and intubated in ICU Patient Support System: dtr and son/SDMs Other Healthcare Provider Participation: None Meeting Location: [facility] Secure Zoom portal, [facility] Pro Zoom account Advanced Directive available: no but pt has been clear about wishes/preferences with family through the years The patient's surrogate medical decision maker participated: yes, dtr and son Legally authorized health care proxy: yes, dtr and son Other surrogate: non A family meeting was held for TORO HDEZ. This meeting was necessary for determining the appropriate course of treatment. Topics of Discussion Topics of Discussion: 30 min ACP 1. VDRF failed extubation now reintubated; next step would be trach and peg with vent SNF placement 2. Adv comorbidities, declining PS, likely will need care and support for lifetime 3. Family entirely in agreement pt would not allow trach/peg nor would he want to live in any dependent manner. They have discussed with extended family incl patient's brother who has also reaffirmed pt known wishes. Other Content of Meetin. Opportunity given for participants to speak and ask questions. Son asking about giving pt a chance to liberate from vent but not reintubating. Son asking if we could leave pt on vent "for a while and help him get stronger." Reviewed that respiratory muscle weakness is a highly likely consequence of prolonged mechanical ventilation and diaphragmatic inactivity produces severe injury and atrophy of muscle fibers. We reviewed that continual mechanical ventilation may actually reduce respiratory muscle endurance, via deconditioning effect. 2. Participants were assured of attention to patient comfort. 3. Reassurance provided. 4. Support was provided for informed, good-enrico decisions. 5. Emotions expressed by family were acknowledged and addressed. 6. Plan of Care: Aim for extubation when family is present, no reintubation. Code discussed and all in agreement for DNR/DNI, code order changed and updated. If pt does not tolerate extubation, do not escalate care and immediately move to YEAST PUSHER with rapid symptom mgt to assure comfort and no suffering. We discussed how dying patients fear dyspnea and pain, therefore, symptom control is one cornerstone of pulmonary palliative care. Dyspnea is a prominent symptom of the patient with advanced respiratory disease of any cause: nearly all patients with COPD had dyspnea during the last 3 days of their lives. Providers routinely care for patients with chronic or advanced respiratory diseases and critical illnesses. The ATS recognizes: the growing importance and complexity of palliative care for patients with life-threatening and life-limiting diseases and disorders and the need for improving professional competence and teamwork in providing such care. The statement strongly endorses the concept that palliative care should be available to patients at all stages of illness and should be individualized based on the needs and preferences of the patient and the patients family. (ATS Clinical Policy Statement: Palliative Care for Patients with Respiratory Diseases and Critical Illnesses; Melonie Long et al., for the [employer] [employer], the [place] [employer], the [place] [employer], and the Respiratory Society* Diagnosis and Management of Stable Chronic Obstructive Pulmonary Disease: A Clinical Practice Guideline Update from the [place] [employer], [place] [employer], [place] [employer], and Respiratory Society . Ellen Copy Holder Med. 2011;155:179-191.) We also reviewed the Dying process: Discussed changes pt may move through in the dying process including but not limited to sleeping more, disorientation when awake, restlessness, diminished senses/inability to respond to stimulus although ability to be aware of them remains intact longer, and changes in body temperatures, skin changes/mottling/cyanosis, respiratory pattern changes, and oral secretions. Family verbalized understanding. The goal is to assure a peaceful . 7. Re: Oxygen at EOL: For patients at the end of life, oxygen delivered by a nasal cannula provides no additional symptomatic benefit for relief of refractory dyspnea in patients with life-limiting illness compared with room air: there's a point at which that the oxygen level gets so low that it's no longer compatible with life. By providing supplemental oxygen, the dying process will be unnecessarily prolonged. Please use less burdensome but more effective strategies such as comfort care meds, oscillating fan, massage, repositioning, etc. (Ludwig AP, Izzy CF, Erika PA, et al. Effect of palliative oxygen versus room air in relief of breathlessness in patients with refractory dyspnoea: a double-blind, randomised controlled trial. Lancet. 2010;376(0748):784-793. doi:10.1016/M7061-6830(82)17091-4) 8. Re: Secretions at EOL/management: I discussed with family that as the level of consciousness decreases in the dying process, patients lose their ability to swallow and clear oral secretions. As air moves over the secretions, which have pooled in the oropharynx and bronchi, the resulting turbulence produces noisy ventilation with each breath, described as gurgling or rattling noises. While there is no evidence that patients find this rattle disturbing, evidence from bereaved surveys suggests the noises can be disturbing to the patients visitors and caregivers who may fear that the patient is choking to . We recommend a combination of Non-Pharmacological and Pharmacological Treatments: * 1. Position the patient on their side or in a semi-prone position to facilitate postural drainage * 2. Communication with family and caregivers to reaffirm commitment to their loves ones care, reduce anxiety and fears. * 3. Gentle oropharyngeal suctioning is used although this can be ineffective when fluids are beyond the reach of the catheter. Avoid deep suctioning as it is very irritating. Note that frequent suctioning is disturbing to both the patient and the visitors. * 4. Reduction of fluid intake. * 5. Consider a 1-2 min Trendelenburg positioning, to move fluids up into the oropharynx for easier removal BUT note that ASPIRATION RISK WILL INCREASE. * 6. Muscarinic receptor blockers (anti-cholinergic drugs) are most often used: glycopyrrolate (Robinul), scopolamine (Transderm Scop), hyoscyamine and atropine. Of these, I prefer to using glycopyrrolate as first line treatment, because it is a quaternary amine (therefore does not cross the blood-brain barrier) which reduces the potential anti cholinergic agent associated AIRCRAFT HY[employer]AUL[employer] EQUIPMENT MECHANIC toxicity (sedation, delirium). * 7. Glycopyrrolate has five times the anti-secretory potency compared to atropine, while scopolamine dries/thickens secretions and causes dry mouth, which may be more distressing to the patient and detract from comfort. Time Involved in Meeting: I spent 60 minutes overall addressing this case: 10 in medical data review/discussion with referring provider(s) and/or preparation for the visit 000 in direct interaction with the patient 30 Advance Care Planning/Goals of Care discussions as detailed above in note (must be >16min) 10 in subsequent review and synthesis of assessment and plan 10 in communicating with other providers regarding the patient's case: CCM/pulm Thank you for allowing us to participate in the ongoing care of this patient. Please don't hesitate to call or page with any additional concerns. Dr. Susan Zheng DNP Director, Palliative Care
[2023-02-01] MEDS: FLUTICASONE/VILANTEROL 100/25MCG 14 PUFFS/INHALER INH SCH (09:53)
[2023-02-01] MEDS: ASPIRIN 81 MG CHEW PO SCH (09:53)
[2023-02-01] MEDS: CLOPIDOGREL BISULFATE 75 MG TAB PO SCH (09:53)
[2023-02-01] MEDS: PANTOprazole 40 MG in SYRINGE 0 ML IV SCH (09:54)
[2023-02-01] MEDS: fentaNYL citrate PF 100 MCG/2 ML VIAL IV PRN (10:09)
[2023-02-01] MEDS ORDERED: fentaNYL citrate PF 100 MCG/2 ML VIAL IV ONE (10:11)
[2023-02-01] MEDS ORDERED: METOPROLOL TARTRATE 25 MG TAB OG SCH (10:30)
[2023-02-01 11:41] LABS: Partial Thromboplastin Ratio 1.4; Partial Thromboplastin Time 39.1 Seconds (21.0-31.0)
[2023-02-01] MEDS ORDERED: ONDANSETRON INJ 2 MG/ML 2 ML VIAL IV PRN (13:44)
[2023-02-01] MEDS ORDERED: HYDROmorphone INJ 0.5 MG/0.5 ML SYR IV PRN (13:44)
[2023-02-01] MEDS ORDERED: LORazepam 0.5 MG in SYRINGE 0.25 ML IV PRN (13:44)
[2023-02-01] MEDS ORDERED: GLYCOPYRROLATE 0.2 MG/ML VIAL IV PRN (14:14)
[2023-02-01] MEDS ORDERED: ATROPINE SULFATE 1% OP SOLN 5 ML BTL SL PRN (14:14)
[2023-02-01] MEDS ORDERED: HYDROmorphone INJ 0.5 MG/0.5 ML SYR IV STA (14:22)
[2023-02-01] MEDS ORDERED: HYDROmorphone BOLUS from BAG IV PRN (14:22)
[2023-02-01] MEDS ORDERED: HYDROmorphone/NSS 100 MG/100 ML BAG IV SCH (14:30)
--- NOTE | 2023-02-01 15:32 | Death Pronouncement Note ---
Date of Service February 01, 2023 Pronouncement Note Admission Date January 22, 2023 Date and Time of Date of : 02/01/23 Time of : 14:44 Preliminary Cause of (1) Acute respiratory failure with hypoxia: (2) Acute renal disease: (3) Endotracheally intubated: (4) Complicated UTI (urinary tract infection): (5) Uremia: (6) Acute encephalopathy: (7) Acute UTI: (8) AMS (altered mental status): Altered mental status type: disorientation Qualified Code(s): R41.0 - Disorientation, unspecified (9) Acute respiratory failure with hypoxia and hypercarbia: (10) Gram-positive bacteremia: (11) Anemia: Anemia type: due to chronic kidney disease Chronic kidney disease stage: unspecified stage Qualified Code(s): N18.9 - Chronic kidney disease, unspecified; D63.1 - Anemia in chronic kidney disease (12) Pseudoaneurysm of femoral artery following procedure: (13) Atrial fibrillation: (14) CAROLINA (acute kidney injury): (15) GERD (gastroesophageal reflux disease): (16) Diabetes mellitus, type 2: Diabetes mellitus complication detail: with other circulatory complications Diabetes mellitus complication status: with circulatory complication Diabetes mellitus regional intermodal truck driver insulin use: without regional intermodal truck driver use Qualified Code(s): E11.59 - Type 2 diabetes mellitus with other circulatory complications (17) CAD (coronary artery disease): Associated angina: without angina Coronary Disease-Associated Artery/Lesion type: [place] artery [place] vs. transplanted heart: [place] heart Qualified Code(s): I25.10 - Atherosclerotic heart disease of sh[place] coronary artery without angina pectoris (18) Malnutrition: Summary please refer to discharge summary Family agreed to terminal extubation with transition to palliative care quickly if the patient shows respiratory distress. Patient as stated above. Additional Data Confirmation of : no pulse, no respirations, no heart sounds and pupils fixed and dilated Pronouncement Performed By: Attending Physician Family: at bedside Attending/PCP notified?: Yes Attending physician: Bentley Wheatley Was code activated?: No Autopsy requested?: No school examiner notified?: No Coding Level of Care Code None Diagnoses Acute respiratory failure with hypoxia J96.01 Acute renal disease N28.9 Endotracheally intubated Z97.8 Complicated UTI (urinary tract infection) N39.0 Uremia N19 Acute encephalopathy G93.40 Acute UTI N39.0 AMS (altered mental status) R41.0 Altered mental status type: disorientation Acute respiratory failure with hypoxia and hypercarbia J96.01; J96.02 Gram-positive bacteremia R78.81 Anemia due to chronic kidney disease, unspecified CKD stage N18.9; D63.1 Anemia type: due to chronic kidney disease Chronic kidney disease stage: unspecified stage Pseudoaneurysm of femoral artery following procedure T81.718A; I72.4 Atrial fibrillation I48.91 [place] (acute kidney injury) N17.9 GERD (gastroesophageal reflux disease) K21.9 Type 2 diabetes mellitus with other circulatory complication, without long-term current use of insulin E11.59 Diabetes mellitus complication detail: with other circulatory complications Diabetes mellitus complication status: with circulatory complication Diabetes mellitus regional intermodal truck driver insulin use: without regional intermodal truck driver use Coronary artery disease involving sh[place] coronary artery of sh[place] heart without angina pectoris I25.10 Associated angina: without angina Coronary Disease-Associated Artery/Lesion type: [place] artery [place] vs. transplanted heart: [place] heart Malnutrition E46
--- NOTE | 2023-02-01 15:33 | Discharge Summary ---
Date of Service February 01, 2023 Admission HPI Per Admitting Provider Yaron Edwards is a 72-year-old male recently discharged 1 day ago after an admission for cardiopulmonary arrest following administration of IV contrast, gram-positive bacteremia with staph epi plus Enterococcus faecalis, ambulatory dysfunction, recent thoracic aneurysm repair, A-fib with history of RVR on apixaban who was discharged to rehab but who presents with AHRF Yaron was discharged to [facility] and was reportedly doing well yesterday, but when was evaluated by staff today was found to be hypoxic to the 70s and much less responsive than normal. His son reports that Yaron had also been confused over the last 24 hours. Had some coughing, but to their knowledge had not had any fevers or chills. Had been taking daptomycin as directed.. Limited history is obtained as patient is lethargic and arouses transiently but does not follow commands or answer questions. Did discuss with the patient's son Yaron's goals of care. They report that he was doing well 48 hours ago and his goal would be to return to a similar level of function. They would like him to remain full code at this time, however if ROSC was not achieved within 3 to 5 minutes they would not want prolonged efforts taken. His son and daughter will continue to discuss goals of care and whether/when DNR/DNI would be within his wishes Principal Diagnosis respiratory failure Discharge Exam Patient terminally extubated. Discharge Data Allergies Allergy/AdvReac Type Severity Reaction Status Date / Time Iodinated Contrast Media Allergy Severe Anaphylaxis Verified 01/22/23 14:52 morphine Allergy Intermediate hives Verified 01/22/23 14:52 Penicillins Allergy Intermediate skin Verified 01/22/23 14:52 streaking tetanus toxoid, adsorbed Allergy Intermediate local skin Verified 01/22/23 14:52 irritation meperidine AdvReac Intermediate hallucinations, Verified 01/22/23 14:52 agitation Consultations 01/22/23 14:47 ED Decision to Admit Stat 01/22/23 18:14 Consult Infectious Diseases Routine Consult Windows Application Packager Routine 01/22/23 18:40 Consult Nephrology Routine 01/23/23 12:09 Consult Neurology Routine 01/24/23 15:28 Consult Palliative Care Routine Ordered Studies 01/22/23 13:44 CT chest diagnostic wo con Stat 01/22/23 15:53 CT head/brain wo con Stat 01/22/23 18:23 CT abd pelvis wo con Urgent 01/25/23 00:05 MR brain wo con Routine 01/27/23 15:00 US venous doppler LE Routine Hospital Course (1) Acute respiratory failure with hypoxia: Acute hypoxic respiratory failure Presents on nonrebreather SPO2 sats in the 70s with increased tachypnea ABG revealed respiratory acidosis, patient intubated and started on broad- spectrum antibiotic after he failed BiPAP - CTchest: No consolidation suggestive of pneumonia. Emphysema. Moderate secretions of the trachea and mainstem bronchi, No leukocytosis, procalcitonin elevated Continue Ceftriaxone and daptomycin per ID -Sputum cultures growing Serratia Patient was recently admitted to this facility with generalized weakness, after patient had a endovascular graft for aortic aneurysm, and other facility, the course was complicated with persistent gram-positive bacteremia, cardiopulmonary arrest, patient discharged to rehab facility after PICC line placed on 6 weeks course of treatment with daptomycin -Extubated on 01/28 -Family meeting with palliative completed 01/28 Once patient is more improved, will have discussion with patient regarding his goals of care. Since extubation patient has been on more oxygen. Patient has been reintubated on 01/30 Remains intubated on 01/31 On 02/01 Family agreed to terminal extubation with transition to palliative care quickly if the patient shows respiratory distress. Patient as stated above. (2) Acute renal disease: (3) Endotracheally intubated: (4) Complicated UTI (urinary tract infection): (5) Uremia: (6) Acute encephalopathy: Etiology is uncertain, EEG showed disorganized background with slowing but no epileptiform waves MRI did not show any acute pathology Neurologist on consult, (7) Acute UTI: urine cultures growing Klebsiella Oxytoca treated with antibiotics (8) AMS (altered mental status): (9) Acute respiratory failure with hypoxia and hypercarbia: (10) Gram-positive bacteremia: History of gram-positive bacteremia - RANGE FEEDER, S. haemolyticus, E facalis cultures on prior admit. Recurrent RANGE FEEDER bacteremia 01/12-01/13 vanc/dapto sensitive. Endograft at risk of infectious, but no clear infection during admit Repeat blood cultures pending Discharged on daptomycin started 01/12, patient did receive Zosyn 01/12 and 01/13. - Was recommended to complete 6 weeks of daptomycin, and dosing was increased to 10 mg/kg's for Enterococcus with DAYNA of 2. -Patient did not improve as stated above. (11) Anemia: (12) Pseudoaneurysm of femoral artery following procedure: (13) Atrial fibrillation: History of A-fib, recent cardiopulmonary arrest DOAC converted to heparin while inpatient and critically ill Admitting EKG normal sinus rhythm without territorial signs of ischemia (14) CAROLINA (acute kidney injury): CAROLINA, transient HD dependence CAROLINA with bilateral renal infarcts and IV contrast administration at last hospitalization Last hemodialysis 01/14/2023, creatinine was stable at around 3.4 since Right IJ was removed 01/18/2023. No further dialysis was anticipated at that time No emergent indication for dialysis on admission - nephrology consulted Anemia Normocytic (15) GERD (gastroesophageal reflux disease): PPI (16) Diabetes mellitus, type 2: ICU hyperglycemia (17) CAD (coronary artery disease): - With history of stents (18) Malnutrition: was on tube feeds Total Time Total Time Spent Total Time Spent (In Minutes): 20 Discharge Plan Discharge Items Patient Disposition: Other Date/Time: 02/01/23 14:44 Coding Level of Care Code 09117 IN/OBS DISCH 30 MIN/LESS Diagnoses Acute respiratory failure with hypoxia J96.01 Acute renal disease N28.9 Endotracheally intubated Z97.8 Complicated UTI (urinary tract infection) N39.0 Uremia N19 Acute encephalopathy G93.40 Acute UTI N39.0 AMS (altered mental status) R41.0 Altered mental status type: disorientation Acute respiratory failure with hypoxia and hypercarbia J96.01; J96.02 Gram-positive bacteremia R78.81 Anemia due to chronic kidney disease, unspecified CKD stage N18.9; D63.1 Anemia type: due to chronic kidney disease Chronic kidney disease stage: unspecified stage Pseudoaneurysm of femoral artery following procedure T81.718A; I72.4 Atrial fibrillation I48.91 [place] (acute kidney injury) N17.9 GERD (gastroesophageal reflux disease) K21.9 Type 2 diabetes mellitus with other circulatory complication, without long-term current use of insulin E11.59 Diabetes mellitus complication detail: with other circulatory complications Diabetes mellitus complication status: with circulatory complication Diabetes mellitus group home insulin use: without termite control servicer use Coronary artery disease involving [place] coronary artery of [place] heart without angina pectoris I25.10 Associated angina: without angina Coronary Disease-Associated Artery/Lesion type: [place] artery [place] vs. transplanted heart: [place]iat[place] heart Malnutrition E46
[2023-02-01] MEDS ORDERED: MEROPENEM 500 MG in SYRINGE 0 ML IV SCH (20:00)
== END 2023-02-01 16:20 | disposition expired | DRG 870 ==
LOC: ED 13:14 → SUATTDRO 16:56 → 1E 16:56